=== PATIENT | female | born 1970 | race Caucasian/White ===

== ENCOUNTER 2016-04-01 09:28 | Emergency (ER) | END 2016-04-01 11:35 | disposition home or self-care (01) | CPT/HCPCS: 73502; 99283; 99284; A9270 ==

== ENCOUNTER 2016-04-10 12:00 | Outpatient (CLI) | payer MEDICARE, MEDICAID | END 2016-04-10 12:01 | disposition home or self-care (01) | DX: T84.59XD Infection and inflammatory reaction due to other internal joint prosthesis, subsequent encounter (principal) ==

== ENCOUNTER 2016-04-17 22:26 | Outpatient (CLI) | payer MEDICARE, MEDICAID | END 2016-04-17 22:27 | disposition home or self-care (01) | DX: T84.59XD Infection and inflammatory reaction due to other internal joint prosthesis, subsequent encounter (principal) ==

== ENCOUNTER 2016-04-24 12:00 | Outpatient (CLI) | payer MEDICARE, MEDICAID | END 2016-04-24 12:01 | disposition home or self-care (01) | DX: T84.59XD Infection and inflammatory reaction due to other internal joint prosthesis, subsequent encounter (principal) ==

== ENCOUNTER 2016-05-03 12:30 | Outpatient (CLI) | payer MEDICARE, MEDICAID | END 2016-05-03 12:31 | disposition home or self-care (01) | DX: T84.59XD Infection and inflammatory reaction due to other internal joint prosthesis, subsequent encounter (principal) ==

== ENCOUNTER 2016-05-10 12:30 | Outpatient (CLI) | payer MEDICARE, MEDICAID | END 2016-05-10 12:31 | disposition home or self-care (01) | DX: T84.59XD Infection and inflammatory reaction due to other internal joint prosthesis, subsequent encounter (principal) ==

== ENCOUNTER 2016-05-17 12:30 | Outpatient (CLI) | payer MEDICAID | END 2016-05-17 12:31 | disposition home or self-care (01) | DX: T84.59XD Infection and inflammatory reaction due to other internal joint prosthesis, subsequent encounter (principal) ==

== ENCOUNTER 2016-05-19 | Outpatient (CLI) | payer MEDICARE, MEDICAID | END 2016-05-19 08:32 | disposition critical access hospital (66) | DX: M25.552 Pain in left hip (principal) | CPT/HCPCS: A0425; A0429 ==

== ENCOUNTER 2016-05-19 08:51 | Emergency (ER) | payer MEDICARE, MEDICAID ==
[2016-05-19] MEDS ORDERED: HYDROmorphone 1 MG/ML SYRINGE IVP STA ×2 (09:22→10:29)
[2016-05-19] MEDS ORDERED: KETOROLAC 60 MG/2 ML VIAL IVP STA (09:22)
[2016-05-19] MEDS ORDERED: KETOROLAC 30 MG/ML VIAL ONE (09:32)
[2016-05-19] MEDS ORDERED: HYDROmorphone 1 MG/ML SYRINGE ONE ×2 (09:32→10:41)
[2016-05-19] MEDS ORDERED: diazePAM INJ 5 MG/ML SYRINGE IVP STA (10:29)
[2016-05-19] MEDS ORDERED: diazePAM INJ 5 MG/ML SYRINGE ONE (10:42)
== END 2016-05-19 11:08 | disposition home or self-care (01) ==
DX: M25.552 Pain in left hip (principal); J45.909 Unspecified asthma, uncomplicated; M19.90 Unspecified osteoarthritis, unspecified site; F17.200 Nicotine dependence, unspecified, uncomplicated
CPT/HCPCS: 73502; 96374; 96375; 96376; 99283; 99284; J1170

== ENCOUNTER 2016-05-22 14:39 | Outpatient (CLI) | payer MEDICARE, MEDICAID | END 2016-05-22 14:40 | disposition home or self-care (01) | DX: T84.59XD Infection and inflammatory reaction due to other internal joint prosthesis, subsequent encounter (principal) ==

== ENCOUNTER 2016-07-16 07:39 | Inpatient (IN) | payer MEDICARE, MEDICAID ==
[~2016-07-16 07:39] MED LIST: LACTATED RINGERS 1,000 ML IV ONE
[2016-07-16] MEDS ORDERED: fentaNYL 100 MCG/2 ML VIAL ONE (08:18)
[2016-07-16] MEDS ORDERED: ceFAZolin 2 GM/50 ML 50 ML IV ONE (08:37)
[2016-07-16] MEDS ORDERED: BACITRACIN 50,000 UNIT VIAL IM ONE ×2 (09:51→10:37)
[2016-07-16] MEDS ORDERED: LACTATED RINGERS 1,000 ML IV ONE ×3 (10:39→11:06)
[2016-07-16] MEDS ORDERED: PHENYLEPHRINE 50 MG/5 ML VIAL IV ONE ×2 (11:00)
[2016-07-16] MEDS ORDERED: MIDAZOLAM 2 MG/2 ML VIAL IVP ONE ×2 (11:00)
[2016-07-16] MEDS ORDERED: ePHEDrine 50 MG/ML AMP IVP ONE ×2 (11:00)
[2016-07-16] MEDS ORDERED: LIDOCAINE-MPF 2% 5 ML VIAL IM ONE ×2 (11:00)
[2016-07-16] MEDS ORDERED: PROPOFOL 200 MG/20 ML VIAL IVP ONE ×2 (11:00)
[2016-07-16] MEDS ORDERED: fentaNYL 250 MCG/5 ML VIAL IVP ONE ×2 (11:00)
[2016-07-16] MEDS ORDERED: ROCURONIUM 50 MG/5 ML VIAL IVP ONE ×2 (11:00)
[2016-07-16] MEDS ORDERED: BISACODYL 10 MG SUPP PR PRN (11:26)
[2016-07-16] MEDS ORDERED: ONDANSETRON 4 MG/2 ML VIAL IVP PRN ×2 (11:26→13:52)
[2016-07-16] MEDS ORDERED: PROCHLORPERAZINE 10 MG/2 ML VIAL IVP PRN (11:26)
[2016-07-16] MEDS ORDERED: PHENYLEPHRINE 20 MG in SODIUM CHLORIDE 0.9% 248 ML IV ONE (11:41)
[2016-07-16] MEDS ORDERED: ACETAMINOPHEN 1,000 MG/100 ML 100 ML IV ONE (11:59)
[2016-07-16] MEDS ORDERED: LIDOCAINE 1% 50 ML MDV ONE (12:03)
[2016-07-16] MEDS ORDERED: HYDROmorphone 1 MG/ML SYRINGE ONE (12:41)
[2016-07-16] MEDS: HYDROmorphone 1 MG/ML SYRINGE IVP PRN ×3 (12:43→19:34)
[2016-07-16] MEDS ORDERED: NALBUPHINE 20 MG/ML AMP IVP PRN (13:52)
[2016-07-16] MEDS ORDERED: PIPERACILLIN/TAZOBACTAM 3.375 GM in SODIUM CHLORIDE 0.9% MINIBAG 100 ML IV SCH (14:00)
[2016-07-16] MEDS ORDERED: VANCOMYCIN PER PHARMACY 1 GM in SODIUM CHLORIDE 0.9% 250 ML IV SCH (14:00)
[2016-07-16] MEDS: PHENYLEPHRINE 20 MG in SODIUM CHLORIDE 0.9% 248 ML IV SCH ×3 (14:08→18:01)
[2016-07-16] MEDS ORDERED: METOCLOPRAMIDE 10 MG/2 ML VIAL IVP PRN (14:10)
[2016-07-16] MEDS: oxyCODONE 5 MG TABLET PO PRN ×2 (14:24→14:54)
[2016-07-16] MEDS: SUFENTA/BUPIV 0.4 MCG/0.0625% 150 ML EP PRN (14:43)
[2016-07-16] MEDS: SODIUM CHLORIDE FLUSH 0.9% 10 ML SYRINGE IVP SCH (15:10)
[2016-07-16] MEDS: SODIUM CHLORIDE 0.45% 1,000 ML IV SCH ×2 (15:10→23:12)
[2016-07-16] MEDS: SODIUM CHLORIDE 0.9% 1,000 ML IV SCH ×2 (15:10→15:33)
[2016-07-16] MEDS: VANCOMYCIN INJ 1.5 GM in SODIUM CHLORIDE 0.9% 500 ML IV SCH (16:13)
[2016-07-16] MEDS ORDERED: ceFAZolin 2 GM/50 ML 50 ML IV SCH (18:00)
[2016-07-16] MEDS: ceFAZolin 2 GM/50 ML 50 ML IV SCH (18:47)
[2016-07-16] MEDS: LORazepam 0.5 MG TABLET PO PRN (19:33)
[2016-07-16] MEDS: ALBUTEROL NEB 2.5 MG/3 ML INH PRN (20:40)
[2016-07-16] MEDS: IPRATROPIUM 0.2 MG/ML NEB INH PRN (20:40)
[2016-07-16] MEDS: PIPERACILLIN/TAZOBACTAM 3.375 GM in SODIUM CHLORIDE 0.9% MINIBAG 100 ML IV SCH (20:55)
[2016-07-16] MEDS: QUEtiapine 100 MG TABLET PO SCH (20:56)
[2016-07-16] MEDS: traZODone 50 MG TABLET PO SCH (20:58)
[2016-07-16] MEDS: PHENYLEPHRINE 40 MG in SODIUM CHLORIDE 0.9% 496 ML IV SCH (21:04)
[2016-07-16] MEDS: SODIUM CHLORIDE FLUSH 0.9% 10 ML SYRINGE IVP PRN (21:07)
[2016-07-17] MEDS: SODIUM CHLORIDE FLUSH 0.9% 10 ML SYRINGE IVP SCH ×3 (00:01→07:45)
[2016-07-17] MEDS: SUFENTA/BUPIV 0.4 MCG/0.0625% 150 ML EP PRN ×2 (01:03→15:23)
[2016-07-17] MEDS: SODIUM CHLORIDE FLUSH 0.9% 10 ML SYRINGE IVP PRN ×2 (01:03→02:05)
[2016-07-17] MEDS: PHENYLEPHRINE 40 MG in SODIUM CHLORIDE 0.9% 496 ML IV SCH ×3 (02:35→16:25)
[2016-07-17] MEDS: PIPERACILLIN/TAZOBACTAM 3.375 GM in SODIUM CHLORIDE 0.9% MINIBAG 100 ML IV SCH ×4 (02:49→20:42)
[2016-07-17] MEDS: ceFAZolin 2 GM/50 ML 50 ML IV SCH ×2 (02:54→12:49)
[2016-07-17] MEDS: VANCOMYCIN INJ 1.5 GM in SODIUM CHLORIDE 0.9% 500 ML IV SCH (03:56)
[2016-07-17] MEDS ORDERED: MAGNESIUM SULFATE 2 GRAM 50 ML IV ONE (06:29)
[2016-07-17] MEDS: PANTOPRAZOLE 40 MG VIAL IVP SCH (07:45)
[2016-07-17] MEDS: HYDROmorphone 1 MG/ML SYRINGE IVP PRN ×9 (08:24→23:46)
[2016-07-17] MEDS: lamoTRIgine 100 MG TABLET PO SCH (08:24)
[2016-07-17] MEDS: ENOXAPARIN 30 MG/0.3 ML SYRINGE SUBQ SCH (08:26)
[2016-07-17] MEDS: DOCUSATE SODIUM 100 MG CAPSULE PO PRN (09:22)
[2016-07-17] MEDS: SODIUM CHLORIDE 0.9% 1,000 ML IV SCH ×2 (09:52→20:03)
[2016-07-17] MEDS: oxyCODONE 5 MG TABLET PO PRN ×2 (10:07→19:12)
[2016-07-17] MEDS: ACETAMINOPHEN 325 MG TABLET PO PRN (14:30)
[2016-07-17] MEDS: NICOTINE 21 MG PATCH TOP SCH (16:31)
[2016-07-17] MEDS ORDERED: MIN OIL/DIMETHICON/COCONUT OIL 92 GM TUBE TOP ONE (18:47)
[2016-07-17] MEDS: IPRATROPIUM 0.2 MG/ML NEB INH PRN (19:20)
[2016-07-17] MEDS: ALBUTEROL NEB 2.5 MG/3 ML INH PRN (19:20)
[2016-07-17] MEDS: diphenhydrAMINE INJ 50 MG/ML VIAL IVP PRN (20:14)
[2016-07-17] MEDS: traZODone 50 MG TABLET PO SCH (22:08)
[2016-07-17] MEDS: QUEtiapine 100 MG TABLET PO SCH (22:08)
[2016-07-17] MEDS: LORazepam 0.5 MG TABLET PO PRN (22:29)
[2016-07-18] MEDS: HYDROmorphone 1 MG/ML SYRINGE IVP PRN ×11 (03:47→22:29)
[2016-07-18] MEDS: PIPERACILLIN/TAZOBACTAM 3.375 GM in SODIUM CHLORIDE 0.9% MINIBAG 100 ML IV SCH ×4 (03:47→21:10)
[2016-07-18] MEDS: VANCOMYCIN INJ 1 GM in SODIUM CHLORIDE 0.9% 250 ML IV SCH ×2 (04:19→17:30)
[2016-07-18] MEDS: SODIUM CHLORIDE FLUSH 0.9% 10 ML SYRINGE IVP SCH ×4 (04:20→16:47)
[2016-07-18] MEDS: SODIUM CHLORIDE 0.9% 1,000 ML IV SCH ×2 (04:20→09:55)
[2016-07-18] MEDS: SUFENTA/BUPIV 0.4 MCG/0.0625% 150 ML EP PRN (04:37)
[2016-07-18] MEDS: PANTOPRAZOLE 40 MG VIAL IVP SCH (05:38)
[2016-07-18] MEDS: lamoTRIgine 100 MG TABLET PO SCH (08:34)
[2016-07-18] MEDS: ACETAMINOPHEN 325 MG TABLET PO PRN (08:35)
[2016-07-18] MEDS: NICOTINE 21 MG PATCH TOP SCH (08:49)
[2016-07-18] MEDS: ENOXAPARIN 30 MG/0.3 ML SYRINGE SUBQ SCH (09:00)
[2016-07-18] MEDS ORDERED: diazePAM 5 MG TABLET PO STA (09:00)
[2016-07-18] MEDS: oxyCODONE 5 MG TABLET PO PRN ×3 (09:17→19:51)
[2016-07-18] MEDS: PHENYLEPHRINE 40 MG in SODIUM CHLORIDE 0.9% 496 ML IV SCH ×4 (10:40→19:24)
[2016-07-18] MEDS: LORazepam 0.5 MG TABLET PO PRN ×2 (16:01→20:58)
[2016-07-18] MEDS: diphenhydrAMINE INJ 50 MG/ML VIAL IVP PRN (16:01)
[2016-07-18] MEDS: QUEtiapine 100 MG TABLET PO SCH (20:58)
[2016-07-18] MEDS: traZODone 50 MG TABLET PO SCH (20:59)
[2016-07-19] MEDS: oxyCODONE 5 MG TABLET PO PRN ×5 (00:14→21:01)
[2016-07-19] MEDS: TEMAZEPAM 15 MG CAPSULE PO PRN ×2 (00:15→23:30)
[2016-07-19] MEDS: SODIUM CHLORIDE 0.9% 1,000 ML IV SCH ×2 (02:28→15:19)
[2016-07-19] MEDS: PIPERACILLIN/TAZOBACTAM 3.375 GM in SODIUM CHLORIDE 0.9% MINIBAG 100 ML IV SCH ×4 (02:43→21:00)
[2016-07-19] MEDS: VANCOMYCIN INJ 1 GM in SODIUM CHLORIDE 0.9% 250 ML IV SCH (04:03)
[2016-07-19] MEDS: PANTOPRAZOLE 40 MG VIAL IVP SCH (06:17)
[2016-07-19] MEDS: HYDROmorphone 1 MG/ML SYRINGE IVP PRN ×9 (07:16→23:31)
[2016-07-19] MEDS: PHENYLEPHRINE 40 MG in SODIUM CHLORIDE 0.9% 496 ML IV SCH ×3 (07:35→22:29)
[2016-07-19] MEDS: SODIUM CHLORIDE FLUSH 0.9% 10 ML SYRINGE IVP SCH ×3 (07:40→23:30)
[2016-07-19] MEDS: ACETAMINOPHEN 325 MG TABLET PO PRN ×2 (07:55→14:11)
[2016-07-19] MEDS: DOCUSATE SODIUM 100 MG CAPSULE PO PRN ×2 (07:56→17:40)
[2016-07-19] MEDS: NICOTINE 21 MG PATCH TOP SCH (07:57)
[2016-07-19] MEDS: lamoTRIgine 100 MG TABLET PO SCH (07:57)
[2016-07-19] MEDS: SENNA 8.6 MG TABLET PO SCH (08:57)
[2016-07-19] MEDS: POLYETHYLENE GLYCOL 3350 17 GM PACKET PO SCH (09:04)
[2016-07-19] MEDS: SODIUM CHLORIDE FLUSH 0.9% 10 ML SYRINGE IVP PRN ×5 (09:06→17:41)
[2016-07-19] MEDS: diphenhydrAMINE INJ 50 MG/ML VIAL IVP PRN ×2 (10:01→23:30)
[2016-07-19] MEDS: MAGNESIUM OXIDE 400 MG TABLET PO SCH ×2 (11:28→16:52)
[2016-07-19] MEDS: LORazepam 0.5 MG TABLET PO PRN (14:11)
[2016-07-19] MEDS ORDERED: SILVER SULFADIAZINE CREAM 25 GM TUBE TOP SCH (16:00)
[2016-07-19] MEDS: SILVER SULFADIAZINE CREAM 400 GM JAR TOP SCH ×2 (16:25→22:31)
[2016-07-19] MEDS: SACCHAROMYCES BOULARDII 250 MG CAPSULE PO SCH (16:52)
[2016-07-19] MEDS: QUEtiapine 100 MG TABLET PO SCH (21:01)
[2016-07-19] MEDS: traZODone 50 MG TABLET PO SCH (21:02)
[2016-07-19] MEDS ORDERED: MIN OIL/DIMETHICON/COCONUT OIL 92 GM TUBE TOP ONE (21:50)
[2016-07-20] MEDS: HYDROmorphone 1 MG/ML SYRINGE IVP PRN ×10 (02:00→23:09)
[2016-07-20] MEDS: SODIUM CHLORIDE 0.9% 1,000 ML IV SCH ×3 (02:21→16:38)
[2016-07-20] MEDS: PIPERACILLIN/TAZOBACTAM 3.375 GM in SODIUM CHLORIDE 0.9% MINIBAG 100 ML IV SCH ×4 (03:30→22:26)
[2016-07-20] MEDS: SODIUM CHLORIDE FLUSH 0.9% 10 ML SYRINGE IVP SCH ×5 (06:53→23:09)
[2016-07-20] MEDS: PANTOPRAZOLE 40 MG VIAL IVP SCH (06:53)
[2016-07-20] MEDS: SILVER SULFADIAZINE CREAM 400 GM JAR TOP SCH (07:44)
[2016-07-20] MEDS: oxyCODONE 5 MG TABLET PO PRN ×4 (08:02→21:39)
[2016-07-20] MEDS: lamoTRIgine 100 MG TABLET PO SCH (08:03)
[2016-07-20] MEDS: SACCHAROMYCES BOULARDII 250 MG CAPSULE PO SCH ×2 (08:04→19:18)
[2016-07-20] MEDS: NICOTINE 21 MG PATCH TOP SCH (08:04)
[2016-07-20] MEDS: LORazepam 0.5 MG TABLET PO PRN ×2 (08:18→17:52)
[2016-07-20] MEDS: ASCORBIC ACID CHEW 500 MG TABLET PO SCH (09:15)
[2016-07-20] MEDS: CHOLECALCIFEROL 1,000 UNIT TABLET PO SCH (09:15)
[2016-07-20] MEDS ORDERED: diazePAM 5 MG TABLET PO ONE (09:30)
[2016-07-20] MEDS: SENNA 8.6 MG TABLET PO SCH (10:42)
[2016-07-20] MEDS: POLYETHYLENE GLYCOL 3350 17 GM PACKET PO SCH (10:42)
[2016-07-20] MEDS ORDERED: diazePAM 5 MG TABLET PO SCH (11:00)
[2016-07-20] MEDS ORDERED: VANCOMYCIN INJ 1 GM in SODIUM CHLORIDE 0.9% 250 ML IV SCH (12:00)
[2016-07-20] MEDS: VANCOMYCIN INJ 1 GM, VANCOMYCIN INJ 500 MG in SODIUM CHLORIDE 0.9% 500 ML IV SCH (12:40)
[2016-07-20] MEDS: PHENYLEPHRINE 40 MG in SODIUM CHLORIDE 0.9% 496 ML IV SCH (19:54)
[2016-07-20] MEDS: diphenhydrAMINE INJ 50 MG/ML VIAL IVP PRN (21:38)
[2016-07-20] MEDS: traZODone 50 MG TABLET PO SCH (22:21)
[2016-07-20] MEDS: QUEtiapine 100 MG TABLET PO SCH (22:22)
[2016-07-20] MEDS: TEMAZEPAM 15 MG CAPSULE PO PRN (22:26)
[2016-07-21] MEDS: LORazepam 0.5 MG TABLET PO PRN ×2 (00:06→15:21)
[2016-07-21] MEDS: oxyCODONE 5 MG TABLET PO PRN ×4 (02:04→21:07)
[2016-07-21] MEDS: HYDROmorphone 1 MG/ML SYRINGE IVP PRN ×9 (02:05→22:01)
[2016-07-21] MEDS: SODIUM CHLORIDE 0.9% 1,000 ML IV SCH ×2 (02:44→22:02)
[2016-07-21] MEDS: SILVER SULFADIAZINE CREAM 400 GM JAR TOP SCH ×3 (04:00→21:01)
[2016-07-21] MEDS: PIPERACILLIN/TAZOBACTAM 3.375 GM in SODIUM CHLORIDE 0.9% MINIBAG 100 ML IV SCH ×4 (04:03→21:00)
[2016-07-21] MEDS: SODIUM CHLORIDE FLUSH 0.9% 10 ML SYRINGE IVP SCH ×4 (06:14→18:16)
[2016-07-21] MEDS: PANTOPRAZOLE 40 MG VIAL IVP SCH (07:16)
[2016-07-21] MEDS: CHOLECALCIFEROL 1,000 UNIT TABLET PO SCH (09:06)
[2016-07-21] MEDS: NICOTINE 21 MG PATCH TOP SCH (09:06)
[2016-07-21] MEDS: lamoTRIgine 100 MG TABLET PO SCH (09:07)
[2016-07-21] MEDS: ASCORBIC ACID CHEW 500 MG TABLET PO SCH (09:07)
[2016-07-21] MEDS: SACCHAROMYCES BOULARDII 250 MG CAPSULE PO SCH ×2 (09:07→16:51)
[2016-07-21] MEDS: SODIUM CHLORIDE FLUSH 0.9% 10 ML SYRINGE IVP PRN (09:18)
[2016-07-21] MEDS: POLYETHYLENE GLYCOL 3350 17 GM PACKET PO SCH (09:55)
[2016-07-21] MEDS: VANCOMYCIN INJ 1 GM, VANCOMYCIN INJ 500 MG in SODIUM CHLORIDE 0.9% 500 ML IV SCH (11:35)
[2016-07-21] MEDS: SENNA 8.6 MG TABLET PO SCH (14:20)
[2016-07-21] MEDS ORDERED: MIN OIL/DIMETHICON/COCONUT OIL 92 GM TUBE TOP ONE (20:31)
[2016-07-21] MEDS: QUEtiapine 100 MG TABLET PO SCH (21:00)
[2016-07-21] MEDS: traZODone 50 MG TABLET PO SCH (21:00)
[2016-07-21] MEDS: diphenhydrAMINE INJ 50 MG/ML VIAL IVP PRN (21:02)
[2016-07-21] MEDS: TEMAZEPAM 15 MG CAPSULE PO PRN (22:01)
[2016-07-22] MEDS: PIPERACILLIN/TAZOBACTAM 3.375 GM in SODIUM CHLORIDE 0.9% MINIBAG 100 ML IV SCH ×4 (03:30→20:48)
[2016-07-22] MEDS: HYDROmorphone 1 MG/ML SYRINGE IVP PRN ×6 (04:24→19:28)
[2016-07-22] MEDS: PANTOPRAZOLE 40 MG VIAL IVP SCH (08:32)
[2016-07-22] MEDS: lamoTRIgine 100 MG TABLET PO SCH (08:33)
[2016-07-22] MEDS: ASCORBIC ACID CHEW 500 MG TABLET PO SCH (08:33)
[2016-07-22] MEDS: SACCHAROMYCES BOULARDII 250 MG CAPSULE PO SCH ×2 (08:34→15:45)
[2016-07-22] MEDS: CHOLECALCIFEROL 1,000 UNIT TABLET PO SCH (08:34)
[2016-07-22] MEDS: oxyCODONE 5 MG TABLET PO PRN ×3 (08:34→23:31)
[2016-07-22] MEDS: NICOTINE 21 MG PATCH TOP SCH (08:46)
[2016-07-22] MEDS: ENOXAPARIN 40 MG/0.4 ML SYRINGE SUBQ SCH (08:50)
[2016-07-22] MEDS: POLYETHYLENE GLYCOL 3350 17 GM PACKET PO SCH (08:51)
[2016-07-22] MEDS: SENNA 8.6 MG TABLET PO SCH (08:51)
[2016-07-22] MEDS: SILVER SULFADIAZINE CREAM 400 GM JAR TOP SCH ×2 (08:51→20:13)
[2016-07-22] MEDS: ACETAMINOPHEN 325 MG TABLET PO PRN ×2 (09:33→22:53)
[2016-07-22] MEDS ORDERED: diazePAM 5 MG TABLET PO STA (10:14)
[2016-07-22] MEDS: HYDROmorphone 2 MG TABLET PO PRN ×6 (11:19→22:43)
[2016-07-22] MEDS: MAGNESIUM OXIDE 400 MG TABLET PO SCH (11:19)
[2016-07-22] MEDS: diphenhydrAMINE INJ 50 MG/ML VIAL IVP PRN ×3 (11:38→21:05)
[2016-07-22] MEDS ORDERED: SODIUM CHLORIDE 0.9% 500 ML IV ONE (12:17)
[2016-07-22] MEDS ORDERED: VANCOMYCIN 500 MG VIAL ONE (12:17)
[2016-07-22] MEDS ORDERED: VANCOMYCIN 1 GM VIAL ONE (12:17)
[2016-07-22] MEDS: VANCOMYCIN INJ 1 GM, VANCOMYCIN INJ 500 MG in SODIUM CHLORIDE 0.9% 500 ML IV SCH (13:10)
[2016-07-22] MEDS: SODIUM CHLORIDE FLUSH 0.9% 10 ML SYRINGE IVP SCH ×2 (13:12→22:45)
[2016-07-22] MEDS: LORazepam 0.5 MG TABLET PO PRN ×2 (15:44→21:05)
[2016-07-22] MEDS ORDERED: MIN OIL/DIMETHICON/COCONUT OIL 92 GM TUBE TOP ONE (16:25)
[2016-07-22] MEDS: TEMAZEPAM 15 MG CAPSULE PO PRN (21:17)
[2016-07-22] MEDS: traZODone 50 MG TABLET PO SCH (22:44)
[2016-07-22] MEDS: QUEtiapine 100 MG TABLET PO SCH (22:45)
[2016-07-23] MEDS: HYDROmorphone 2 MG TABLET PO PRN ×5 (00:39→15:41)
[2016-07-23] MEDS: HYDROmorphone 1 MG/ML SYRINGE IVP PRN ×3 (00:59→11:05)
[2016-07-23] MEDS: PIPERACILLIN/TAZOBACTAM 3.375 GM in SODIUM CHLORIDE 0.9% MINIBAG 100 ML IV SCH ×3 (02:55→15:20)
[2016-07-23] MEDS: SODIUM CHLORIDE FLUSH 0.9% 10 ML SYRINGE IVP SCH ×2 (05:29→14:21)
[2016-07-23] MEDS: PANTOPRAZOLE 40 MG VIAL IVP SCH (05:35)
[2016-07-23] MEDS: SACCHAROMYCES BOULARDII 250 MG CAPSULE PO SCH (07:46)
[2016-07-23] MEDS: MAGNESIUM OXIDE 400 MG TABLET PO SCH (07:46)
[2016-07-23] MEDS: SODIUM CHLORIDE FLUSH 0.9% 10 ML SYRINGE IVP PRN (08:31)
[2016-07-23] MEDS: ENOXAPARIN 40 MG/0.4 ML SYRINGE SUBQ SCH (09:15)
[2016-07-23] MEDS: oxyCODONE 5 MG TABLET PO PRN ×2 (09:15→14:19)
[2016-07-23] MEDS: NICOTINE 21 MG PATCH TOP SCH (09:15)
[2016-07-23] MEDS: ASCORBIC ACID CHEW 500 MG TABLET PO SCH (09:16)
[2016-07-23] MEDS: lamoTRIgine 100 MG TABLET PO SCH (09:16)
[2016-07-23] MEDS: LORazepam 0.5 MG TABLET PO PRN (09:16)
[2016-07-23] MEDS: CHOLECALCIFEROL 1,000 UNIT TABLET PO SCH (09:16)
[2016-07-23] MEDS: POLYETHYLENE GLYCOL 3350 17 GM PACKET PO SCH (09:17)
[2016-07-23] MEDS: SILVER SULFADIAZINE CREAM 400 GM JAR TOP SCH (09:17)
[2016-07-23] MEDS: SENNA 8.6 MG TABLET PO SCH (09:17)
[2016-07-23] MEDS: VANCOMYCIN INJ 1 GM, VANCOMYCIN INJ 500 MG in SODIUM CHLORIDE 0.9% 500 ML IV SCH (12:12)
[2016-07-23] MEDS: ALBUTEROL NEB 2.5 MG/3 ML INH PRN (13:00)
== END 2016-07-23 15:40 | disposition home health service (06) | DRG 463 ==
PROC: 0QP704Z Removal of Internal Fixation Device from Left Upper Femur, Open Approach (ICD-10-PCS; 2016-07-16)
PROC: 4A133BC Monitoring of Arterial Pressure, Coronary, Percutaneous Approach (ICD-10-PCS; 2016-07-16)
PROC: 0SPS0JZ Removal of Synthetic Substitute from Left Hip Joint, Femoral Surface, Open Approach (ICD-10-PCS; principal; 2016-07-16 08:50)
PROC: 30233N1 Transfusion of Nonautologous Red Blood Cells into Peripheral Vein, Percutaneous Approach (ICD-10-PCS; 2016-07-17)
DX: T84.52XA Infection and inflammatory reaction due to internal left hip prosthesis, initial encounter (principal); T81.19XA Other postprocedural shock, initial encounter; D62 Acute posthemorrhagic anemia; M86.48 Chronic osteomyelitis with draining sinus, other site; B95.61 Methicillin susceptible Staphylococcus aureus infection as the cause of diseases classified elsewhere; Y83.1 Surgical operation with implant of artificial internal device as the cause of abnormal reaction of the patient, or of later complication, without mention of misadventure at the time of the procedure; F31.9 Bipolar disorder, unspecified; F41.9 Anxiety disorder, unspecified; I10 Essential (primary) hypertension; J45.40 Moderate persistent asthma, uncomplicated; G89.29 Other chronic pain; Z95.828 Presence of other vascular implants and grafts; Z87.891 Personal history of nicotine dependence; Z79.891 Long term (current) use of opiate analgesic; Z87.81 Personal history of (healed) traumatic fracture

== ENCOUNTER 2016-07-25 15:42 | Outpatient (CLI) | payer MEDICARE, MEDICAID | END 2016-07-25 15:43 | disposition critical access hospital (66) | DX: Z48.01 Encounter for change or removal of surgical wound dressing (principal) | CPT/HCPCS: A0425; A0429 ==

== ENCOUNTER 2016-07-25 16:06 | Emergency (ER) | payer MEDICARE, MEDICAID ==
[2016-07-25] MEDS ORDERED: oxyCODONE 5 MG TABLET PO STA (16:38)
[2016-07-25] MEDS ORDERED: oxyCODONE 5 MG TABLET ONE (16:48)
== END 2016-07-25 17:05 | disposition home or self-care (01) ==
DX: M96.89 Other intraoperative and postprocedural complications and disorders of the musculoskeletal system (principal); Z46.89 Encounter for fitting and adjustment of other specified devices; J45.909 Unspecified asthma, uncomplicated; F17.200 Nicotine dependence, unspecified, uncomplicated
CPT/HCPCS: 99283; A9270

== ENCOUNTER 2016-07-26 08:17 | Outpatient (CLI) | payer MEDICARE, MEDICAID | END 2016-07-26 08:18 | disposition critical access hospital (66) | DX: R11.2 Nausea with vomiting, unspecified (principal) | CPT/HCPCS: A0425; A0427 ==

== ENCOUNTER 2016-07-26 08:35 | Emergency (ER) | payer MEDICARE, MEDICAID ==
[2016-07-26] MEDS ORDERED: ONDANSETRON 4 MG/2 ML VIAL IVP STA (09:14)
[2016-07-26] MEDS ORDERED: HYDROmorphone 1 MG/ML SYRINGE IVP STA ×3 (09:14→11:41)
[2016-07-26] MEDS ORDERED: LORazepam 2 MG/ML SYRINGE IVP STA (09:15)
[2016-07-26] MEDS ORDERED: HYDROmorphone 1 MG/ML SYRINGE ONE ×3 (09:35→12:00)
[2016-07-26] MEDS ORDERED: LORazepam 2 MG/ML SYRINGE ONE (09:36)
[2016-07-26] MEDS ORDERED: ONDANSETRON 4 MG/2 ML VIAL ONE (09:36)
[2016-07-26] MEDS ORDERED: SODIUM CHLORIDE 0.9% 1,000 ML IV ONE (10:29)
[2016-07-26] MEDS ORDERED: ALTEPLASE 2 MG VIAL IC ONE (10:31)
[2016-07-26] MEDS ORDERED: oxyCODONE 5 MG TABLET PO STA (11:41)
[2016-07-26] MEDS ORDERED: oxyCODONE 5 MG TABLET ONE (12:00)
== END 2016-07-26 12:21 | disposition home or self-care (01) ==
DX: R11.2 Nausea with vomiting, unspecified (principal); T40.2X5A Adverse effect of other opioids, initial encounter; G89.18 Other acute postprocedural pain; Z98.890 Other specified postprocedural states; Z87.891 Personal history of nicotine dependence
CPT/HCPCS: 36415; 80053; 83690; 83735; 96374; 96375; 96376; 99284; A9270; J1170; J2060; J2997

== ENCOUNTER 2016-08-05 08:00 | Outpatient (CLI) | payer MEDICARE, MEDICAID | END 2016-08-05 23:59 | disposition home or self-care (01) | LOC: LAB.R 08:00 | PROVIDERS: ATTEND Orthopaedic Surgery | DX: Z53.9 Procedure and treatment not carried out, unspecified reason (principal) ==

== ENCOUNTER 2016-08-08 08:00 | Outpatient (CLI) | payer MEDICARE, MEDICAID ==
[2016-08-08 16:50] LABS: BASOPHILS # (AUTO) 0.1 10^3/uL (0.0-0.1); BASOPHILS % (AUTO) 0.8 %; EOSINOPHILS # (AUTO) 1.2 10^3/uL (0.0-0.7); EOSINOPHILS % (AUTO) 9.2 %; HCT - HEMATOCRIT 40.8 % (37.0-47.0); HGB - HEMOGLOBIN 13.2 g/dL (12.0-16.0); LYMPHOCYTES # (AUTO) 2.5 10^3/uL (1.5-3.5); LYMPHOCYTES % (AUTO) 19.4 %; MEAN CORPUSCULAR HEMOGLOBIN 28.2 pg (27.0-31.0); MEAN CORPUSCULAR HGB CONC 32.3 g/dL (32.0-36.0); MEAN CORPUSCULAR VOLUME 87.1 fL (81.0-99.0); MEAN PLATELET VOLUME 7.7 fL (7.9-10.8); MONOCYTES # (AUTO) 0.7 10^3/uL (0.0-1.0); MONOCYTES % (AUTO) 5.2 %; NEUTROPHILS # (AUTO) 8.3 10^3/uL (1.5-6.6); NEUTROPHILS % (AUTO) 65.4 %; NUCLEATED RED BLOOD CELLS AUTO 0.1 /100WBC; RED BLOOD COUNT 4.68 10^6/uL (4.20-5.40); RED CELL DISTRIBUTION WIDTH 18.6 % (12.0-15.0); UNCORRECTED WHITE BLOOD COUNT 12.7 x10^3/uL; WHITE BLOOD COUNT 12.7 x10^3/uL (4.8-10.8)
[2016-08-08 17:07] LABS: BILIRUBIN,TOTAL 0.3 mg/dL (0.2-1.0); BUN - BLOOD UREA NITROGEN 17 mg/dL (6-20); CALCIUM 9.9 mg/dL (8.5-10.3); CARBON DIOXIDE - CO2 27 mmol/L (21-32); CHLORIDE 103 mmol/L (101-111); GFR - MDRD 59 (>89); GLUCOSE 96 mg/dL (70-100); POTASSIUM 4.2 mmol/L (3.5-5.0); SODIUM 137 mmol/L (135-145); TOTAL PROTEIN 7.7 g/dL (6.7-8.2)
== END 2016-08-08 08:01 | disposition home or self-care (01) ==
LOC: LAB.R 08:00
DX: T84.59XD Infection and inflammatory reaction due to other internal joint prosthesis, subsequent encounter (principal)
CPT/HCPCS: 80053; 85025; 85651

== ENCOUNTER 2016-08-17 12:54 | Outpatient (CLI) | payer MEDICARE, MEDICAID | END 2016-08-17 12:55 | disposition critical access hospital (66) | LOC: EMS 12:54 | PROVIDERS: ATTEND Surgery | DX: M25.552 Pain in left hip (principal); Z91.81 History of falling | CPT/HCPCS: A0425; A0429 ==

== ENCOUNTER 2016-08-17 13:25 | Emergency (ER) | payer MEDICARE, MEDICAID ==
--- NOTE | 2016-08-17 13:58 | ED Physician Documentation ---
History of Present Illness - Stated complaint Stated Complaint: L HIP PX - Chief complaint Chief Complaint: Ext Problem - History obtained from History obtained from: Patient, EMS - History of Present Illness Timing: Yesterday Pain level max: 10 Pain level now: 8 Quality: spasm Improved by: rest, ice Worsened by: movement - Additonal information Additional information: fell yesterday with her walker. States her L leg internally rotated. States she has spasms today. worse with movement. States out of her hydrocodone. 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 HEENT: Other Psych: Depression, Bipolar disorder Musculoskeletal: Osteoarthritis, Chronic back pain Derm: Psoriasis - Past Surgical History Past Surgical History: Yes General: Cholecystectomy, Other Ortho: Hip replacement, Other - Present Medications Home Medications: Ambulatory Orders Medication Instructions Recorded Confirmed Lamotrigine [Lamictal] 200 mg PO DAILY 06/19/16 07/26/16 Quetiapine Fumarate [Seroquel] 400 mg PO QPM 06/19/16 07/26/16 Trazodone HCl 400 mg PO QPM 06/19/16 07/26/16 Acetaminophen [Tylenol] 650 - 975 mg PO Q4HR PRN #0 tablet 07/23/16 07/26/16 Albuterol 2.5 mg INH Q4HR PRN #0 neb 07/23/16 07/26/16 HYDROmorphone [Dilaudid] 4 mg PO Q2H PRN #60 tablet 07/23/16 07/26/16 Ondansetron Odt [Zofran] 4 mg TL Q6H PRN #15 tablet 07/26/16 oxyCODONE [Roxicodone] 5 mg PO Q6H PRN #20 tablet 07/26/16 Hydrocodone/Acetaminophen 1 - 2 each PO Q6H PRN #6 tablet 08/17/16 [Hydrocodon-Acetaminophen 5-325] diazePAM [Valium] 5 mg PO TID PRN #7 tablet 08/17/16 - Allergies Allergies/Adverse Reactions: Allergies Allergy/AdvReac Type Severity Reaction Status Date / Time morphine Allergy Hallucinati Verified 08/17/16 13:34 ons - Social History Does the pt smoke?: Yes Smoking Status: Former smoker Does the pt drink ETOH?: No Does the pt have substance abuse?: No - Immunizations Immunizations are current?: Yes - POLST Patient has POLST: No PD ED PE NORMAL - Vitals Vital signs reviewed: Yes - General General: Alert and oriented X 3, No acute distress - HEENT HEENT: Atraumatic, Moist mucous membranes - Neck Neck: Supple, no meningeal sign - Derm Derm: Warm and dry - Extremities Extremities: Other (R LE wound vac in place. no overt evidence of trauma or infection.) - Neuro Neuro: Alert and oriented X 3 Results - Vitals Vitals: Vital Signs - 24 hr 08/17/16 13:31 Temperature 36.9 C Heart Rate 106 H Respiratory 16 Rate Blood Pressure 115/97 H O2 Saturation 97 Oxygen O2 Source [With Activity] Room air O2 Source [Without Activity] Room air O2 Source Room air PD MEDICAL DECISION MAKING - ED course Complexity details: reviewed old records, considered differential, d/w patient ED course: Patient is a 46-year-old female who presents to the emergency department after a fall at home last night. States increasing pain today especially with movement. Mainly spasm. States Valium has worked for her in the past. Sees her orthopedist in 2 days. Declines x-rays at this time. Will prescribe a small amount of medication for her and follow-up with her doctor. Patient counseled regarding signs and symptoms for which I believe and urgent re- evaluation would be necessary. Patient with good understanding of and agreement to plan and is comfortable going home at this time This document was made in part using voice recognition software. While efforts are made to proofread this document, sound alike and grammatical errors may occur. Departure - Departure Disposition: 01 Home, Self Care Clinical Impression: Muscle spasm Condition: Good Instructions: ED Spasm Muscle Follow-Up: Evelyn Medina MD [Provider Admit Priv/Credential] - 08/19/16 Prescriptions: Hydrocodone/Acetaminophen [Hydrocodon-Acetaminophen 5-325] 1 - 2 each PO Q6H PRN #6 tablet PRN Reason: pain diazePAM [Valium] 5 mg PO TID PRN #7 tablet PRN Reason: Spasms Comments: Follow up on Friday with Dr. Medina for further evaluation and care. Do not drink alcohol or drive while on narcotic pain medicine. Note that many narcotic pain relievers also contain tylenol/acetaminophen. Please ensure that your total dose of acetaminophen from all sources does not exceed 3 grams (3000mg) per day. You may constipated on this medication, take a stool softener such as "Colace" twice a day while you are on it. Also recommend a xera-rwq-fclkeyu laxative such as senna or MiraLAX any day that you do not have a bowel movement. If you received narcotic pain medication in the emergency department, do not drive or operate machinery for the next 24 hours.
[2016-08-17] MEDS ORDERED: HYDROcod/ACETAM 5/325 MG TABLET PO STA ×2 (14:05→14:08)
[2016-08-17] MEDS ORDERED: diazePAM 5 MG TABLET PO STA (14:05)
[2016-08-17] MEDS ORDERED: diazePAM 5 MG TABLET PO ONE (14:11)
[2016-08-17] MEDS ORDERED: HYDROcod/ACETAM 5/325 MG TABLET ONE (14:11)
[2016-08-17 15:30] VITALS: BP 127/81
== END 2016-08-17 15:54 | disposition home or self-care (01) ==
LOC: EDUNIT# → ED 13:25
DX: M62.838 Other muscle spasm (principal); J45.909 Unspecified asthma, uncomplicated; M19.90 Unspecified osteoarthritis, unspecified site; Z87.891 Personal history of nicotine dependence
CPT/HCPCS: 99283; A9270

== ENCOUNTER 2016-08-17 15:58 | Outpatient (CLI) | payer MEDICARE, MEDICAID | END 2016-08-17 15:59 | disposition home or self-care (01) | LOC: EMS 15:58 | PROVIDERS: ATTEND Surgery | DX: M25.552 Pain in left hip (principal) | CPT/HCPCS: A0425; A0428 ==

== ENCOUNTER 2016-08-19 17:00 | Outpatient (CLI) | payer MEDICARE, MEDICAID ==
[2016-08-19 18:03] LABS: BASOPHILS # (AUTO) 0.1 10^3/uL (0.0-0.1); BASOPHILS % (AUTO) 0.5 %; EOSINOPHILS # (AUTO) 0.3 10^3/uL (0.0-0.7); EOSINOPHILS % (AUTO) 1.8 %; HGB - HEMOGLOBIN 12.3 g/dL (12.0-16.0); LYMPHOCYTES # (AUTO) 3.2 10^3/uL (1.5-3.5); LYMPHOCYTES % (AUTO) 19.9 %; MEAN CORPUSCULAR HGB CONC 32.4 g/dL (32.0-36.0); MEAN CORPUSCULAR VOLUME 86.6 fL (81.0-99.0); MEAN PLATELET VOLUME 7.4 fL (7.9-10.8); MONOCYTES # (AUTO) 1.6 10^3/uL (0.0-1.0); MONOCYTES % (AUTO) 9.9 %; NEUTROPHILS % (AUTO) 67.9 %; NUCLEATED RED BLOOD CELLS AUTO 0.1 /100WBC; RED BLOOD COUNT 4.39 10^6/uL (4.20-5.40); RED CELL DISTRIBUTION WIDTH 18.1 % (12.0-15.0); UNCORRECTED WHITE BLOOD COUNT 16.1 x10^3/uL; WHITE BLOOD COUNT 16.1 x10^3/uL (4.8-10.8)
[2016-08-19 18:49] LABS: ALBUMIN/GLOBULIN RATIO 0.8 (1.0-2.2); BILIRUBIN,TOTAL 0.5 mg/dL (0.2-1.0); BUN - BLOOD UREA NITROGEN 14 mg/dL (6-20); CALCIUM 9.6 mg/dL (8.5-10.3); CARBON DIOXIDE - CO2 22 mmol/L (21-32); CHLORIDE 105 mmol/L (101-111); CREATININE 1.1 mg/dL (0.4-1.0); GFR - MDRD 53 (>89); GLUCOSE 116 mg/dL (70-100); POTASSIUM 3.3 mmol/L (3.5-5.0); SODIUM 137 mmol/L (135-145); TOTAL PROTEIN 8.1 g/dL (6.7-8.2)
== END 2016-08-19 17:01 | disposition home or self-care (01) ==
LOC: LAB.R 17:00
PROVIDERS: ATTEND Orthopaedic Surgery
DX: T84.59XD Infection and inflammatory reaction due to other internal joint prosthesis, subsequent encounter (principal)
CPT/HCPCS: 80053; 85025; 85651

== ENCOUNTER 2016-09-03 12:20 | Outpatient (CLI) | payer MEDICARE, MEDICAID ==
[2016-09-03 13:11] LABS: BASOPHILS # (AUTO) 0.1 10^3/uL (0.0-0.1); HGB - HEMOGLOBIN 11.3 g/dL (12.0-16.0); MONOCYTES # (AUTO) 0.7 10^3/uL (0.0-1.0); NEUTROPHILS # (AUTO) 8.8 10^3/uL (1.5-6.6); UNCORRECTED WHITE BLOOD COUNT 12.1 x10^3/uL; WHITE BLOOD COUNT 12.1 x10^3/uL (4.8-10.8)
[2016-09-03 13:17] LABS: BASOPHILS % (AUTO) 0.5 %; EOSINOPHILS # (AUTO) 0.2 10^3/uL (0.0-0.7); HCT - HEMATOCRIT 34.2 % (37.0-47.0); LYMPHOCYTES # (AUTO) 2.4 10^3/uL (1.5-3.5); LYMPHOCYTES % (AUTO) 19.6 %; MEAN CORPUSCULAR HEMOGLOBIN 28.4 pg (27.0-31.0); MEAN CORPUSCULAR HGB CONC 33.1 g/dL (32.0-36.0); MEAN CORPUSCULAR VOLUME 85.7 fL (81.0-99.0); MEAN PLATELET VOLUME 6.4 fL (7.9-10.8); MONOCYTES % (AUTO) 5.8 %; NEUTROPHILS % (AUTO) 72.1 %; RED BLOOD COUNT 3.99 10^6/uL (4.20-5.40); RED CELL DISTRIBUTION WIDTH 17.1 % (12.0-15.0)
[2016-09-03 13:47] LABS: ALBUMIN/GLOBULIN RATIO 0.6 (1.0-2.2); BILIRUBIN,TOTAL 0.2 mg/dL (0.2-1.0); CALCIUM 9.4 mg/dL (8.5-10.3); POTASSIUM 4.1 mmol/L (3.5-5.0); TOTAL PROTEIN 6.9 g/dL (6.7-8.2)
== END 2016-09-03 12:21 | disposition home or self-care (01) ==
LOC: LAB.R 12:20
PROVIDERS: ATTEND Orthopaedic Surgery
DX: T84.59XD Infection and inflammatory reaction due to other internal joint prosthesis, subsequent encounter (principal)
CPT/HCPCS: 80053; 85025; 85651

== ENCOUNTER 2016-09-21 13:51 | Outpatient (CLI) | payer MEDICARE, MEDICAID | END 2016-09-21 13:52 | disposition critical access hospital (66) | LOC: EMS 13:51 | PROVIDERS: ATTEND Surgery | DX: M25.511 Pain in right shoulder (principal); V00.811A Fall from moving wheelchair (powered), initial encounter; Y92.038 Other place in apartment as the place of occurrence of the external cause | CPT/HCPCS: A0425; A0429 ==

== ENCOUNTER 2016-09-21 14:19 | Emergency (ER) | payer MEDICAID ==
[2016-09-21 14:26] VITALS: BP 131/76
[2016-09-21] MEDS ORDERED: diazePAM INJ 5 MG/ML SYRINGE IM STA (14:49)
[2016-09-21] MEDS ORDERED: diazePAM INJ 5 MG/ML SYRINGE ONE (14:52)
--- NOTE | 2016-09-21 14:54 | ED Physician Documentation ---
History of Present Illness - Stated complaint Stated Complaint: GLF - Chief complaint Chief Complaint: General - History obtained from History obtained from: Patient, EMS - History of Present Illness Timing: Today Pain level max: 8 Pain level now: 6 Quality: aching, dull pain Improved by: rest Worsened by: movement - Additonal information Additional information: Patient is a 46-year-old female who fell out of her wheelchair today landed on the right shoulder. Complaining of right-sided neck and shoulder pain. Worse with movement. Better with rest. 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 HEENT: Other Psych: Depression, Bipolar disorder Musculoskeletal: Osteoarthritis, Chronic back pain Derm: Psoriasis - Past Surgical History Past Surgical History: Yes General: Cholecystectomy, Other Ortho: Hip replacement, Other - Present Medications Home Medications: Ambulatory Orders Medication Instructions Recorded Confirmed Lamotrigine [Lamictal] 200 mg PO DAILY 06/19/16 09/21/16 Quetiapine Fumarate [Seroquel] 400 mg PO QPM 06/19/16 09/21/16 Trazodone HCl 400 mg PO QPM 06/19/16 09/21/16 Albuterol 2.5 mg INH Q4HR PRN #0 neb 07/23/16 09/21/16 Hydrocodone/Acetaminophen 1 - 2 each PO Q6H PRN #6 tablet 08/17/16 09/21/16 [Hydrocodon-Acetaminophen 5-325] diazePAM [Valium] 5 - 10 mg PO TID PRN #14 tablet 09/21/16 - Allergies Allergies/Adverse Reactions: Allergies Allergy/AdvReac Type Severity Reaction Status Date / Time morphine Allergy Hallucinati Verified 08/17/16 13:34 ons - Social History Does the pt smoke?: Yes Smoking Status: Former smoker Does the pt drink ETOH?: No Does the pt have substance abuse?: No - Immunizations Immunizations are current?: Yes - POLST Patient has POLST: No PD ED PE NORMAL - Vitals Vital signs reviewed: Yes - General General: Alert and oriented X 3, No acute distress - HEENT HEENT: Atraumatic, Moist mucous membranes - Neck Neck: Supple, no meningeal sign, No bony TTP, Other (Paraspinal tenderness, right trapezial ridge down to the shoulder. There is no bony tenderness over the glenohumeral joint, clavicle or cervical spine. No scapular tenderness.) - Cardiac Cardiac: RRR - Respiratory Respiratory: No respiratory distress, Clear bilaterally - Abdomen Abdomen: Soft, Non tender - Back Back: No spinal TTP - Derm Derm: Warm and dry - Neuro Neuro: Alert and oriented X 3 - Psych Psych: Normal mood, Normal affect Results - Vitals Vitals: Vital Signs - 24 hr 09/21/16 14:23 Temperature 37.0 C Heart Rate 98 Respiratory 14 Rate Blood Pressure 131/76 H O2 Saturation 97 Oxygen O2 Source [With Activity] Room air O2 Source [Without Activity] Room air O2 Source Room air PD MEDICAL DECISION MAKING - ED course Complexity details: re-evaluated patient, considered differential, d/w patient ED course: Patient is a 46-year-old female who appears to have a shoulder contusion/ muscular strain of the neck. We will trial her on Valium for home. This has worked well for her pain in the past. She is on a pain contract and is receiving hydrocodone for her pain at home. States she does not need pain medications. No evidence of bony injury. Full range of motion of the shoulder without pain. Full range of motion of the neck with minimal pain. Patient counseled regarding signs and symptoms for which I believe and urgent re- evaluation would be necessary. Patient with good understanding of and agreement to plan and is comfortable going home at this time This document was made in part using voice recognition software. While efforts are made to proofread this document, sound alike and grammatical errors may occur. Departure - Departure Disposition: Home, Self Care Clinical Impression: Muscle strain Condition: Good Instructions: ED Sprain Strain Neck Follow-Up: your,doctor in 1 week [Other] Prescriptions: diazePAM [Valium] 5 - 10 mg PO TID PRN #14 tablet PRN Reason: Spasms Comments: Return if you worsen. This should improve over the next 24-48 hours. You will be sore tomorrow. You can use ice as well as heat at home
== END 2016-09-21 15:17 | disposition home or self-care (01) ==
LOC: EDUNIT# → ED 14:19
DX: S16.1XXA Strain of muscle, fascia and tendon at neck level, initial encounter (principal); W05.0XXA Fall from non-moving wheelchair, initial encounter; Y93.89 Activity, other specified; Z87.891 Personal history of nicotine dependence
CPT/HCPCS: 96372; 99283

== ENCOUNTER 2016-09-24 16:19 | Emergency (ER) | payer MEDICARE, MEDICAID ==
[2016-09-24 16:29] VITALS: BP 107/77
--- NOTE | 2016-09-24 16:59 | ED Physician Documentation ---
PD HPI UPPER EXT INJURY - Stated complaint Stated Complaint: RT COLLAR BONE PX - Chief complaint Chief Complaint: Ext Problem - History obtained from History obtained from: Patient - History of Present Illness Location: Right, Clavicle (medial end), Shoulder Type of injury: Fall (she says she fell backward with her wheelchair and landed back/right side. Struck back of shoulder and had some pain there, but is having more pain today at medial clavicle area. Did not have xrays yesterday. She says she is hurting more than baseline for her hip/back and so took over her usual amount of meds (which had been 30 hydrocodone every week). 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 HEENT: Other Psych: Depression, Bipolar disorder Musculoskeletal: Osteoarthritis, Chronic back pain Derm: Psoriasis - Past Surgical History Past Surgical History: Yes General: Cholecystectomy, Other Ortho: Hip replacement, Other - Present Medications Home Medications: Ambulatory Orders Medication Instructions Recorded Confirmed Lamotrigine [Lamictal] 200 mg PO DAILY 06/19/16 09/24/16 Quetiapine Fumarate [Seroquel] 400 mg PO QPM 06/19/16 09/24/16 Trazodone HCl 400 mg PO QPM 06/19/16 09/24/16 Albuterol 2.5 mg INH Q4HR PRN #0 neb 07/23/16 09/24/16 diazePAM [Valium] 5 - 10 mg PO TID PRN #14 tablet 09/21/16 09/24/16 Diazepam 5 mg PO TID PRN #15 tablet 09/24/16 oxyCODONE [Roxicodone] 5 mg PO Q4-6H PRN #15 tablet 09/24/16 - Allergies Allergies/Adverse Reactions: Allergies Allergy/AdvReac Type Severity Reaction Status Date / Time morphine Allergy Hallucinati Verified 09/24/16 16:28 ons - Social History Does the pt smoke?: Yes Smoking Status: Former smoker Does the pt drink ETOH?: No Does the pt have substance abuse?: No - Immunizations Immunizations are current?: Yes - POLST Patient has POLST: No Results - Vitals Vitals: Vital Signs - 24 hr 09/24/16 16:25 Temperature 36.5 C Heart Rate 97 Respiratory 18 Rate Blood Pressure 107/77 O2 Saturation 99 Oxygen O2 Source [With Activity] Room air O2 Source [Without Activity] Room air O2 Source Room air PD MEDICAL DECISION MAKING - ED course Complexity details: reviewed old records (prior visits and [facility] report. ), considered differential (She denies being on Pain Contract per se, but I encourage her to be seeing her Ortho/PCP about further med Rx and would just do this short Rx due to new fall/injury. No fractures on xray. . ), d/w patient Departure - Departure Disposition: Home, Self Care Clinical Impression: Clavicle pain Accidental fall Qualifiers: Encounter type: initial encounter Qualified Code(s): W19.XXXA - Unspecified fall, initial encounter Condition: Stable Record reviewed to determine appropriate education?: Yes Instructions: ED Chronic Pain Management, ED Sprain Shoulder Follow-Up: Chrissy Hoffmann ARNP [Primary Care Provider] - Evelyn Medina MD [Provider Admit Priv/Credential] - Prescriptions: Diazepam 5 mg PO TID PRN #15 tablet PRN Reason: Spasms oxyCODONE [Roxicodone] 5 mg PO Q4-6H PRN #15 tablet PRN Reason: Pain Comments: You should be getting regular ongoing pain medications from your regular providers. I wrote short term script for just this time, and will give further Diazepam for muscle relaxant. Follow up with regular providers regarding further meds. Discharge Date/Time: 09/24/16 18:06
[2016-09-24] MEDS ORDERED: oxyCOD/ACETAMIN 5 MG/325 MG TABLET PO STA (17:16)
[2016-09-24] MEDS ORDERED: oxyCOD/ACETAMIN 5 MG/325 MG TABLET PO ONE (17:20)
--- NOTE | 2016-09-24 17:58 | XRAY Preliminary Report ---
Exam: XR Clavicle RT IMPRESSION: 1. No fracture. 2. Normal alignment. Moderate right acromioclavicular joint arthritis. [facility] SITE ID: [id number]
--- NOTE | 2016-09-24 18:24 | XRAY Report ---
EXAM: RIGHT CLAVICLE RADIOGRAPHY EXAM DATE: 09/24/2016 05:39 PM. CLINICAL HISTORY: Fall with pain medial clavicle. COMPARISON: None. TECHNIQUE: 2 views. FINDINGS: Bones: Normal. No fracture or bone lesion. Joints: The acromioclavicular and sternoclavicular joints are in normal alignment. Moderate right acr omioclavicular joint arthritis with subchondral cyst. Soft Tissues: Normal. No soft tissue swelling. IMPRESSION: 1. No fracture. 2. Normal alignment. Moderate right acromioclavicular joint arthritis. [facility] Referring Provider Line: [phone] SITE ID: [id number]
== END 2016-09-24 18:06 | disposition home or self-care (01) ==
LOC: ED 16:19
DX: M25.511 Pain in right shoulder (principal); W05.0XXA Fall from non-moving wheelchair, initial encounter; M25.559 Pain in unspecified hip; M54.9 Dorsalgia, unspecified; G89.29 Other chronic pain; M19.90 Unspecified osteoarthritis, unspecified site; Z96.649 Presence of unspecified artificial hip joint; Z87.891 Personal history of nicotine dependence
CPT/HCPCS: 73000; 99283; A9270

== ENCOUNTER 2016-11-06 02:23 | Outpatient (CLI) | payer MEDICARE | END 2016-11-06 02:24 | disposition critical access hospital (66) | LOC: EMS 02:23 | PROVIDERS: ATTEND Surgery | DX: S89.90XA Unspecified injury of unspecified lower leg, initial encounter (principal) | CPT/HCPCS: A0425; A0429 ==

== ENCOUNTER 2016-11-06 02:47 | Emergency (ER) | payer MEDICAID, MEDICARE ==
--- NOTE | 2016-11-06 03:36 | ED Physician Documentation ---
PD HPI BACK PAIN - Stated complaint Stated Complaint: LT KNEE PAIN/HIP REPLACEMENT ISSUES - Chief complaint Chief Complaint: Ext Problem - History obtained from History obtained from: Patient - History of Present Illness Timing - onset: Chronic Timing - details: Gradual onset, Still present Location: Upper, Right Quality: Pain, Spasm, Similar to prior episodes Associated symptoms: No: Fever, Weakness Worsened by: Movement, Lifting Contributing factors: Lifting, Twisting Similar symptoms before: No diagnosis. No: Treatment Recently seen: Not recently seen - Additional information Additional information: Patient is a 46 year old female presenting to the emergency department for back pain and muscle spasm. Patient states that she has been dealing with this for a long time. every now and again the area will flare up. Patient states that she is supposed to get a massage tomorrow but she couldn't wait because she couldnt' sleep. Review of Systems Constitutional: denies: Fever, Chills Eyes: denies: Loss of vision, Decreased vision Ears: denies: Ear pain, Drainage/discharge Nose: denies: Rhinorrhea / runny nose, Congestion Throat: denies: Dental pain / toothache Respiratory: denies: Dyspnea, Cough GI: denies: Abdominal Pain, Nausea, Vomiting Skin: denies: Rash, Lesions Musculoskeletal: reports: Neck pain, Back pain Neurologic: denies: Generalized weakness, Focal weakness, Numbness PD PAST MEDICAL HISTORY - Past Medical History Cardiovascular: None Respiratory: Asthma Neuro: None Endocrine/Autoimmune: None GI: Chronic constipation 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 HEENT: Other Psych: Depression, Bipolar disorder Musculoskeletal: Osteoarthritis, Chronic back pain Derm: Psoriasis - Past Surgical History Past Surgical History: Yes General: Cholecystectomy, Other Ortho: Hip replacement, Other - Present Medications Home Medications: Ambulatory Orders Medication Instructions Recorded Confirmed Lamotrigine [Lamictal] 200 mg PO DAILY 06/19/16 09/24/16 Quetiapine Fumarate [Seroquel] 400 mg PO QPM 06/19/16 09/24/16 Trazodone HCl 400 mg PO QPM 06/19/16 09/24/16 Albuterol 2.5 mg INH Q4HR PRN #0 neb 07/23/16 09/24/16 diazePAM [Valium] 5 - 10 mg PO TID PRN #14 tablet 09/21/16 09/24/16 Diazepam 5 mg PO TID PRN #15 tablet 09/24/16 oxyCODONE [Roxicodone] 5 mg PO Q4-6H PRN #15 tablet 09/24/16 Cyclobenzaprine [Flexeril] 10 mg PO TID PRN #10 tablet 11/06/16 - Allergies Allergies/Adverse Reactions: Allergies Allergy/AdvReac Type Severity Reaction Status Date / Time morphine Allergy Hallucinati Verified 09/24/16 16:28 ons - Social History Does the pt smoke?: Yes Smoking Status: Former smoker Does the pt drink ETOH?: No Does the pt have substance abuse?: No - Immunizations Immunizations are current?: Yes - POLST Patient has POLST: No PD ED PE NORMAL - Vitals Vital signs reviewed: Yes - General General: Alert and oriented X 3, No acute distress - HEENT HEENT: Atraumatic, PERRL - Neck Neck: Supple, no meningeal sign - Cardiac Cardiac: RRR, No murmur - Respiratory Respiratory: No respiratory distress - Abdomen Abdomen: Soft, Non tender, Non distended - Derm Derm: Normal color, Warm and dry, No rash - Extremities Extremities: No deformity, Normal ROM s pain - Neuro Neuro: Alert and oriented X 3, No motor deficit, No sensory deficit, Normal speech - Psych Psych: Normal mood PD ED PE EXPANDED - Back Back: Soft tissue tenderness (tenderness and hypertonicty of right paraspinal muscles in upper thoracic region) Results - Vitals Vitals: Vital Signs - 24 hr 11/06/16 02:50 Temperature 36.8 C Heart Rate 90 Respiratory 24 Rate Blood Pressure 128/98 H O2 Saturation 98 Oxygen O2 Source [With Activity] Room air O2 Source [Without Activity] Room air O2 Source Room air PD MEDICAL DECISION MAKING - ED course Complexity details: reviewed old records, re-evaluated patient, considered differential, d/w patient ED course: Patient was seen and examined at bedside. A trigger point injection was performed and patient was treated with toradol and flexeril. Patient required no imaging at this time and patient was stable for discharge with outpatient follow up. Departure - Departure Disposition: 01 Home, Self Care Clinical Impression: Muscle spasm Condition: Good Instructions: ED Spasm Back No Trauma Follow-Up: Chrissy Hoffmann ARNP [Primary Care Provider] - Within 1 week Prescriptions: Cyclobenzaprine [Flexeril] 10 mg PO TID PRN #10 tablet PRN Reason: Spasms Comments: Your symptoms today are being caused by a muscle spasm. You should continue with ice/heat nsaids for the pain. You can take an occasional flexeril but you should not take it with any alcohol or other depressants. You should follow up with your massage therapist and your pmd. You may return to the emergency department for new, worsening or uncontrollable symptoms.
--- NOTE | 2016-11-06 03:46 | XRAY Report ---
EXAM: LEFT KNEE RADIOGRAPHY EXAM DATE: 11/06/2016 03:28 AM. CLINICAL HISTORY: Fall, knee pain, prior hip removal. COMPARISON: Radiograph hip 05/19/2016 TECHNIQUE: 6 views. FINDINGS: Bones: The bones are osteopenic. There is a comminuted supracondylar fracture of the left femur, with the fracture line also extending to the articular surface, best seen on the lateral view. In additio n, the lateral view demonstrates cortical irregularity of the metadiaphysis of the fibula, concerning for an additional fracture. Joints: Moderate left knee joint effusion likely representing hemarthrosis. Soft Tissues: Normal. No soft tissue swelling. IMPRESSION: 1. A comminuted supracondylar fracture of the left femur, with the fracture line also extending to th e articular surface, best seen on the lateral view. 2. In addition, the lateral view demonstrates cortical irregularity of the metadiaphysis of the fibul a, concerning for an additional fracture. 3. Moderate left knee joint effusion likely representing hemarthrosis. [facility] Referring Provider Line: [phone] SITE ID: [id number]
[2016-11-06] MEDS ORDERED: fentaNYL 100 MCG/2 ML VIAL IVP STA ×3 (04:06→06:42)
--- NOTE | 2016-11-06 04:06 | ED Physician Documentation ---
PD HPI LOWER EXT INJURY - Stated complaint Stated Complaint: LT KNEE PAIN/HIP REPLACEMENT ISSUES - Chief complaint Chief Complaint: Ext Problem - History obtained from History obtained from: Patient, EMS - History of Present Illness PD HPI LOW EXT INJURY LOCATION: Left, Knee Type of injury: Fall Where injury occurred: Street Timing - onset: Today Timing - details: Abrupt onset Improved by: Immobilization Associated symptoms: Swelling, Discolored Contributing factors: Prior ortho surgery, Prosthetic joint Similar symptoms before: Has not had sx before Recently seen: Not recently seen - Additional information Additional information: Patient is a 46 year old female with prior degenerative arthritis and bilateral hip replacements who is presenting to the emergency department for knee pain after falling in her wheelchair. Patient states that she was crossing a dirt field when she dropped her phone. she was reaching over to get her phone when she fell and landed on her knee. Patient states that she heard a snap at that time. Review of Systems Constitutional: denies: Fever, Chills Eyes: denies: Loss of vision, Photophobia Ears: denies: Ear pain, Drainage/discharge Nose: denies: Rhinorrhea / runny nose, Congestion Throat: denies: Dental pain / toothache, Sore throat Cardiac: denies: Chest pain / pressure Respiratory: denies: Cough GI: denies: Nausea, Vomiting Musculoskeletal: reports: Extremity pain, Joint pain Psychiatric: reports: Anxiety, Other (bipolar). 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 COPY: None : None HEENT: Other Psych: Depression, Bipolar disorder Musculoskeletal: Osteoarthritis, Chronic back pain Derm: Psoriasis - Past Surgical History Past Surgical History: Yes General: Cholecystectomy, Other Ortho: Hip replacement, Other - Present Medications Home Medications: Ambulatory Orders Medication Instructions Recorded Confirmed Lamotrigine [Lamictal] 200 mg PO DAILY 06/19/16 09/24/16 Quetiapine Fumarate [Seroquel] 400 mg PO QPM 06/19/16 09/24/16 Trazodone HCl 400 mg PO QPM 06/19/16 09/24/16 Albuterol 2.5 mg INH Q4HR PRN #0 neb 07/23/16 09/24/16 diazePAM [Valium] 5 - 10 mg PO TID PRN #14 tablet 09/21/16 09/24/16 Diazepam 5 mg PO TID PRN #15 tablet 09/24/16 oxyCODONE [Roxicodone] 5 mg PO Q4-6H PRN #15 tablet 09/24/16 Cyclobenzaprine [Flexeril] 10 mg PO TID PRN #10 tablet 11/06/16 - Allergies Allergies/Adverse Reactions: Allergies Allergy/AdvReac Type Severity Reaction Status Date / Time morphine Allergy Hallucinati Verified 09/24/16 16:28 ons - Social History Does the pt smoke?: Yes Smoking Status: Former smoker Does the pt drink ETOH?: No Does the pt have substance abuse?: No - Immunizations Immunizations are current?: Yes - POLST Patient has POLST: No PD ED PE NORMAL - Vitals Vital signs reviewed: Yes - HEENT HEENT: Atraumatic, PERRL - Neck Neck: Supple, no meningeal sign - Cardiac Cardiac: RRR - Respiratory Respiratory: No respiratory distress - Abdomen Abdomen: Soft, Non tender, Non distended - Derm Derm: Normal color, Warm and dry, No rash PD ED PE EXPANDED - General General: Alert, Disheveled, poorly kept, In Pain - Extremities Extremities: Left hip (gross deformity of left hit), Left knee (tenderness, swell ing and deformity of left knee) - Psych Psych: Tearful, Agitated Results - Vitals Vitals: Vital Signs - 24 hr 11/06/16 11/06/16 11/06/16 02:50 04:47 05:37 Temperature 36.8 C Heart Rate 90 79 90 Respiratory 24 16 16 Rate Blood Pressure 128/98 H 125/70 126/80 O2 Saturation 98 100 98 11/06/16 06:56 Temperature Heart Rate 84 Respiratory 14 Rate Blood Pressure 155/97 H O2 Saturation 97 Oxygen O2 Source [With Activity] Room air O2 Source [Without Activity] Room air O2 Source Room air - Labs Labs: Laboratory Tests 11/06/16 11/06/16 04:30 04:30 WBC 11.1 H RBC 4.13 L Hgb 12.0 Hct 36.5 L MCV 88.5 MCH 29.0 MCHC 32.8 RDW 16.0 H Plt Count 320 MPV 6.6 L Neut # 8.8 H Lymph # 1.3 L [place] # 0.7 Eos # 0.2 Baso # 0.1 Absolute Nucleated RBC 0.00 Nucleated RBCs 0.0 Sodium 136 Potassium 3.0 L Chloride 103 Carbon Dioxide 24 Anion Gap 9.0 BUN 21 H Creatinine 0.9 Estimated GFR (MDRD) 67 L Glucose 137 H Calcium 9.8 Total Bilirubin 0.4 AST 29 ALT 30 Alkaline Phosphatase 137 H Total Protein 9.3 H Albumin 4.1 Globulin 5.2 H Albumin/Globulin Ratio 0.8 L Lipase 37 - Rads (name of study) knee x-ray Radiology: Final report received (comminuted fracture of left knee) ct knee Radiology: Final report received (comminuted fracture of left knee) PD MEDICAL DECISION MAKING - ED course Complexity details: reviewed old records, reviewed results, re-evaluated patient , considered differential, d/w patient, d/w education sales consultant ED course: Patient was seen and examined at bedside. Patient was sent for imaging. when patient returned results were reviewed and consistent with comminuted fracture. IV access was gained and labs were drawn. Patient was treated with fentanyl 50mcg. Dr Landon, covering ortho was contacted and reviewed the films. he stated that the patient should be transferred out. Case was discussed with preethi canales who recommended cT and [facility] consult. Case was discussed with [facility] trauma surgeon who accepted the patient. arrangements were made for transfer of the patient. patient was treated with an additional 50mcg of fentanyl and 1mg of ativan. Departure - Departure Disposition: 02 Transfer Acute Care Hosp Clinical Impression: Closed comminuted supracondylar fracture of femur Condition: Stable Prescriptions: Cyclobenzaprine [Flexeril] 10 mg PO TID PRN #10 tablet PRN Reason: Spasms Comments: Your symptoms today are being caused by a muscle spasm. You should continue with ice/heat nsaids for the pain. You can take an occasional flexeril but you should not take it with any alcohol or other depressants. You should follow up with your massage therapist and your pmd. You may return to the emergency department for new, worsening or uncontrollable symptoms.
[2016-11-06] MEDS ORDERED: fentaNYL 100 MCG/2 ML VIAL ONE ×3 (04:17→06:52)
[2016-11-06] MEDS ORDERED: SODIUM CHLORIDE FLUSH 0.9% 10 ML SYRINGE IVP ONE ×2 (04:17→06:54)
[2016-11-06 04:40] LABS: BASOPHILS # (AUTO) 0.1 10^3/uL (0.0-0.1); BASOPHILS % (AUTO) 0.6 %; EOSINOPHILS # (AUTO) 0.2 10^3/uL (0.0-0.7); EOSINOPHILS % (AUTO) 1.8 %; HCT - HEMATOCRIT 36.5 % (37.0-47.0); LYMPHOCYTES # (AUTO) 1.3 10^3/uL (1.5-3.5); LYMPHOCYTES % (AUTO) 11.9 %; MEAN CORPUSCULAR HGB CONC 32.8 g/dL (32.0-36.0); MEAN CORPUSCULAR VOLUME 88.5 fL (81.0-99.0); MEAN PLATELET VOLUME 6.6 fL (7.9-10.8); MONOCYTES # (AUTO) 0.7 10^3/uL (0.0-1.0); MONOCYTES % (AUTO) 6.7 %; NEUTROPHILS # (AUTO) 8.8 10^3/uL (1.5-6.6); RED BLOOD COUNT 4.13 10^6/uL (4.20-5.40); UNCORRECTED WHITE BLOOD COUNT 11.1 x10^3/uL; WHITE BLOOD COUNT 11.1 x10^3/uL (4.8-10.8)
[2016-11-06 04:50] LABS: ALBUMIN/GLOBULIN RATIO 0.8 (1.0-2.2); BILIRUBIN,TOTAL 0.4 mg/dL (0.2-1.0); CALCIUM 9.8 mg/dL (8.5-10.3); CREATININE 0.9 mg/dL (0.4-1.0); TOTAL PROTEIN 9.3 g/dL (6.7-8.2)
--- NOTE | 2016-11-06 07:07 | CT Preliminary Report ---
Exam: CT Lower Extremity Left W/O IMPRESSION: 1. As already demonstrated on the comparison radiograph, there is a comminuted supracondylar fracture of the left femur with multiple fracture lines, with the distal fracture fragment (the condyles) ang ulated anteriorly. Approximately 28 degrees of angulation. There is a linear lucency extending to the joint (for example series 7 image 70), consistent with articular extension of the fracture. 2. A hyperdense effusion with a level within the left knee joint, consistent with hemarthrosis. 3. No other fractures are appreciated. [facility] SITE ID: [id number]
--- NOTE | 2016-11-06 07:10 | CT Report ---
EXAM: RIGHT/LEFT KNEE CT WITHOUT CONTRAST EXAM DATE: 11/06/2016 06:43 AM. CLINICAL HISTORY: Left femur fracture COMPARISON: Radiograph left knee 11/06/2016 TECHNIQUE: Thin-section axial images were acquired of the knee without contrast. Post-processing: Cor onal and sagittal reformats. Other: None. In accordance with CT protocol optimization, one or more of the following dose reduction techniques w ere utilized for this exam: automated exposure control, adjustment of mA and/or KV based on patient s ize, or use of iterative reconstructive technique. FINDINGS: Bones: As already demonstrated on the comparison radiograph, there is a comminuted supracondylar frac ture of the left femur with multiple fracture lines, with the distal fracture fragment (the condyles) angulated anteriorly. Approximately 28 degrees of angulation. There is a linear lucency extending to the joint (for example series 7 image 70), consistent with articular extension of the fracture. No other fractures are appreciated. Joints: There is a hyperdense effusion with a level within the left knee joint, consistent with hemar throsis. Musculature: Normal. No fatty atrophy. Other: No Bakers cyst. No soft tissue swelling. Multiple calcific densities within the soft tissues of the left lower extremity IMPRESSION: 1. As already demonstrated on the comparison radiograph, there is a comminuted supracondylar fracture of the left femur with multiple fracture lines, with the distal fracture fragment (the condyles) ang ulated anteriorly. Approximately 28 degrees of angulation. There is a linear lucency extending to the joint (for example series 7 image 70), consistent with articular extension of the fracture. 2. A hyperdense effusion with a level within the left knee joint, consistent with hemarthrosis. 3. No other fractures are appreciated. [facility] Referring Provider Line: [phone] SITE ID: [id number]
[2016-11-06] MEDS ORDERED: LORazepam 2 MG/ML SYRINGE IVP STA (07:21)
[2016-11-06] MEDS ORDERED: LORazepam 2 MG/ML SYRINGE ONE (07:34)
[2016-11-06 07:51] VITALS: BP 116/88
[2016-11-06] MEDS ORDERED: HYDROmorphone 1 MG/ML SYRINGE IVP STA (08:23)
[2016-11-06] MEDS ORDERED: HYDROmorphone 1 MG/ML SYRINGE ONE (08:31)
== END 2016-11-06 08:49 | disposition short-term general hospital (02) ==
LOC: EDUNIT# → SUPCPDRO 02:47 → ED 02:47
DX: S72.452A Displaced supracondylar fracture without intracondylar extension of lower end of left femur, initial encounter for closed fracture (principal); W05.0XXA Fall from non-moving wheelchair, initial encounter; Z96.643 Presence of artificial hip joint, bilateral; J45.909 Unspecified asthma, uncomplicated
CPT/HCPCS: 20552; 36415; 73564; 73700; 80053; 83690; 85025; 96374; 96375; 96376; 99284; J1170; J2060

== ENCOUNTER 2016-11-06 08:53 | Outpatient (CLI) | payer MEDICARE | END 2016-11-06 08:54 | disposition short-term general hospital (02) | LOC: EMS 08:53 | PROVIDERS: ATTEND Surgery | DX: S72.92XA Unspecified fracture of left femur, initial encounter for closed fracture (principal) | CPT/HCPCS: A0425; A0428 ==

== ENCOUNTER 2016-11-16 18:20 | Outpatient (CLI) | payer MEDICARE | END 2016-11-16 18:21 | disposition critical access hospital (66) | LOC: EMS 18:20 | PROVIDERS: ATTEND Surgery | DX: M79.652 Pain in left thigh (principal) | CPT/HCPCS: A0425; A0428; A0429 ==

== ENCOUNTER 2016-11-16 18:39 | Emergency (ER) | payer MEDICARE ==
[2016-11-16] MEDS ORDERED: HYDROmorphone 1 MG/ML SYRINGE IM STA ×2 (19:42→20:39)
[2016-11-16] MEDS ORDERED: ONDANSETRON ODT 4 MG TABLET TL STA (19:43)
--- NOTE | 2016-11-16 19:43 | ED Physician Documentation ---
PD HPI LOWER EXT INJURY - Stated complaint Stated Complaint: LEG PAIN - Chief complaint Chief Complaint: Ext Problem - History obtained from History obtained from: Patient - History of Present Illness PD HPI LOW EXT INJURY LOCATION: Left, Upper leg, Knee Type of injury: Other (she had recent injury to left leg with distall femur fracture. Seen at [facility] and treated with knee immobilizer only. Having worse pain and did not have further pain meds. Appt with PMD next week?.) Timing - duration: Days Timing - details: Abrupt onset, Still present Worsened by: Moving, Palpating Contributing factors: Anticoagulated, Prior ortho surgery Recently seen: Emergency Dept, Other (sent to [facility] for eval of fracture from ED here.) Review of Systems Constitutional: denies: Fever, Chills Cardiac: denies: Chest pain / pressure Respiratory: denies: Dyspnea, Cough GI: denies: Abdominal Pain, Nausea, Vomiting Neurologic: denies: Focal weakness, Numbness PD PAST MEDICAL HISTORY - Past Medical History Past Medical History: Yes Cardiovascular: None Respiratory: Asthma Neuro: None Endocrine/Autoimmune: None GI: Chronic constipation 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 : None HEENT: Other Psych: Depression, Bipolar disorder Musculoskeletal: Osteoarthritis, Chronic back pain Derm: Psoriasis - Past Surgical History Past Surgical History: Yes General: Cholecystectomy, Other Ortho: Hip replacement, Other - Present Medications Home Medications: Ambulatory Orders Medication Instructions Recorded Confirmed Lamotrigine [Lamictal] 200 mg PO DAILY 06/19/16 11/16/16 Quetiapine Fumarate [Seroquel] 400 mg PO QPM 06/19/16 09/24/16 Albuterol 2.5 mg INH Q4HR PRN #0 neb 07/23/16 11/16/16 diazePAM [Valium] 5 - 10 mg PO TID PRN #14 tablet 09/21/16 11/16/16 oxyCODONE [Roxicodone] 5 mg PO Q4-6H PRN #15 tablet 09/24/16 Enoxaparin [Lovenox] mg SUBQ Q24H 11/16/16 Oxycodone HCl/Acetaminophen 1 each PO Q4HR PRN #30 tablet 11/16/16 [Percocet 10-325 mg Tablet] diazePAM [Valium] 5 mg PO TID PRN #25 tablet 11/16/16 - Allergies Allergies/Adverse Reactions: Allergies Allergy/AdvReac Type Severity Reaction Status Date / Time morphine Allergy Hallucinati Verified 11/16/16 19:00 ons - Social History Does the pt smoke?: Yes Smoking Status: Former smoker Does the pt drink ETOH?: No Does the pt have substance abuse?: No - Immunizations Immunizations are current?: Yes - POLST Patient has POLST: No PD ED PE NORMAL - Vitals Vital signs reviewed: Yes - General General: Alert and oriented X 3, Well developed/nourished, Other (appears in pain and is verbal about being in extreme pain. She does have very recent femur fracture just above knee. Will give her pain meds for this. ) - Neck Neck: Supple, no meningeal sign, No adenopathy - Cardiac Cardiac: RRR, No murmur - Respiratory Respiratory: Clear bilaterally - Abdomen Abdomen: Soft, Non tender - Back Back: No CVA TTP - Derm Derm: Normal color, Warm and dry - Extremities Extremities: Other (left hip with drain output mild. Left distal femur with marked tenderness to movement. Normal distal pulses, color, cap refill. Pain with any slight ROM.) Results - Vitals Vitals: Vital Signs - 24 hr 11/16/16 11/16/16 11/16/16 18:47 20:09 20:20 Temperature 36.7 C Heart Rate 117 H 98 99 Respiratory 20 18 18 Rate Blood Pressure 134/86 H O2 Saturation 100 96 99 11/16/16 21:30 Temperature 36.4 C L Heart Rate 95 Respiratory 18 Rate Blood Pressure 132/91 H O2 Saturation 98 Oxygen O2 Source [With Activity] Room air O2 Source [Without Activity] Room air O2 Source Room air PD MEDICAL DECISION MAKING - ED course Complexity details: considered differential (having pain from recent femur fracture. Patient states [facility] said they did not want to do surgery for femur/knee due to hip infection. Treating with knee immobilizer. Got 2 days of pain meds from [facility]. ), d/w patient Departure - Departure Disposition: 01 Home, Self Care Clinical Impression: Left leg pain Femur fracture, left Qualifiers: Encounter type: subsequent encounter Femur location: supracondylar with intracondylar extension Fracture type: closed Fracture alignment: nondisplaced Fracture healing: with routine healing Qualified Code(s): S72.465D - Nondisplaced supracondylar fracture with intracondylar extension of lower end of left femur, subsequent encounter for closed fracture with routine healing Condition: Stable Record reviewed to determine appropriate education?: Yes Prescriptions: Oxycodone HCl/Acetaminophen [Percocet 10-325 mg Tablet] 1 each PO Q4HR PRN #30 tablet PRN Reason: Pain diazePAM [Valium] 5 mg PO TID PRN #25 tablet PRN Reason: Spasms Comments: Knee brace and continue being in a wheelchair is used typically R. Follow-up with orthopedics. Oxycodone 10 mg every 4 hours if needed for pain. Diazepam 3 times a day for muscle spasms. Follow-up with your primary care this coming week. Discharge Date/Time: 11/16/16 21:32
[2016-11-16] MEDS ORDERED: HYDROmorphone 1 MG/ML SYRINGE ONE ×2 (19:56→20:56)
[2016-11-16] MEDS ORDERED: ONDANSETRON ODT 4 MG TABLET ONE (19:56)
[2016-11-16] MEDS ORDERED: oxyCODONE/ACET 5/325 Prepack 4 PO STA (20:21)
[2016-11-16] MEDS ORDERED: oxyCODONE/ACET 5/325 Prepack 4 PO ONE (20:28)
[2016-11-16] MEDS ORDERED: diazePAM 5 MG TABLET PO STA (20:40)
[2016-11-16] MEDS ORDERED: diazePAM 5 MG TABLET PO ONE (20:56)
[2016-11-16 21:31] VITALS: BP 132/91
== END 2016-11-16 21:32 | disposition home or self-care (01) ==
LOC: EDUNIT# → ED 18:39
DX: S72.465D Nondisplaced supracondylar fracture with intracondylar extension of lower end of left femur, subsequent encounter for closed fracture with routine healing (principal); X58.XXXD Exposure to other specified factors, subsequent encounter; M79.605 Pain in left leg
CPT/HCPCS: 96372; 99283; A9270; J1170; Q0162

== ENCOUNTER → 2016-11-16 | Outpatient (CLI) | payer MEDICARE | LOC: EMS 21:50 | PROVIDERS: ATTEND Surgery | DX: Z53.9 Procedure and treatment not carried out, unspecified reason (principal) ==

== ENCOUNTER 2016-11-25 11:03 | Outpatient (CLI) | payer MEDICARE, MEDICAID | END 2016-11-25 11:04 | disposition critical access hospital (66) | LOC: EMS 11:03 | PROVIDERS: ATTEND Surgery | DX: M79.605 Pain in left leg (principal) | CPT/HCPCS: A0425; A0427 ==

== ENCOUNTER 2016-11-25 11:24 | Emergency (ER) | payer MEDICARE, MEDICAID ==
[2016-11-25] MEDS ORDERED: oxyCOD/ACETAMIN 5 MG/325 MG TABLET PO STA (12:24)
--- NOTE | 2016-11-25 12:26 | ED Physician Documentation ---
PD HPI LOWER EXT INJURY - Stated complaint Stated Complaint: LEG PX - Chief complaint Chief Complaint: Trauma Ext - History obtained from History obtained from: Patient - History of Present Illness PD HPI LOW EXT INJURY LOCATION: Other (46-year-old woman who had an absent left hip sustained a supracondylar fracture approximately 20 days ago and was sent to [facility] where she was treated conservatively. She has multiple ongoing issues, she is out of pain medications, she is having troubles with transportation and getting in and out of her house and getting to follow-up appointments. Her current knee immobilizer does not fit her well and makes her pain worse. 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 : None HEENT: Other Psych: Depression, Bipolar disorder Musculoskeletal: Osteoarthritis, Chronic back pain Derm: Psoriasis - Past Surgical History Past Surgical History: Yes General: Cholecystectomy, Other Ortho: Hip replacement, Other - Present Medications Home Medications: Ambulatory Orders Medication Instructions Recorded Confirmed Lamotrigine [Lamictal] 200 mg PO DAILY 06/19/16 11/16/16 Quetiapine Fumarate [Seroquel] 400 mg PO QPM 06/19/16 09/24/16 Albuterol 2.5 mg INH Q4HR PRN #0 neb 07/23/16 11/16/16 diazePAM [Valium] 5 - 10 mg PO TID PRN #14 tablet 09/21/16 11/16/16 oxyCODONE [Roxicodone] 5 mg PO Q4-6H PRN #15 tablet 09/24/16 Enoxaparin [Lovenox] mg SUBQ Q24H 11/16/16 Oxycodone HCl/Acetaminophen 1 each PO Q4HR PRN #30 tablet 11/16/16 [Percocet 10-325 mg Tablet] diazePAM [Valium] 5 mg PO TID PRN #25 tablet 11/16/16 Escitalopram [Lexapro] 20 mg pe PO DAILY 11/25/16 11/25/16 Lamotrigine [Lamictal] 200 mg PO DAILY 11/25/16 11/25/16 Oxycodone HCl/Acetaminophen 1 - 2 tab PO Q4H PRN #15 tablet 11/25/16 [Percocet 5-325 mg Tablet] QUEtiapine [SEROquel] 400 mg pe PO DAILY 11/25/16 11/25/16 - Allergies Allergies/Adverse Reactions: Allergies Allergy/AdvReac Type Severity Reaction Status Date / Time morphine Allergy Hallucinati Verified 11/16/16 19:00 ons - Social History Does the pt smoke?: Yes Smoking Status: Former smoker Does the pt drink ETOH?: No Does the pt have substance abuse?: No - Immunizations Immunizations are current?: Yes - POLST Patient has POLST: No PD ED PE NORMAL - Vitals Vital signs reviewed: Yes - General General: Alert and oriented X 3, No acute distress - Extremities Extremities: Other (Left leg is tender above the knee without deformity, she has a wound VAC over the greater trochanter without signs of surrounding infection. She is neurovascularly intact in the foot.) - Neuro Neuro: Alert and oriented X 3, Normal speech - Psych Psych: Normal mood, Normal affect Results - Vitals Vitals: Vital Signs - 24 hr 11/25/16 11/25/16 11:28 14:38 Temperature 36.4 C L Heart Rate 88 71 Respiratory 19 20 Rate Blood Pressure 133/96 H 136/97 H O2 Saturation 98 100 Oxygen O2 Source [] Room air O2 Source [] Room air O2 Source Room air Procedures - Splint (location) L leg Splint applied by: Tech Type of splint: Other (The tech placed a posterior long leg fiberglass splint because the knee immobilizer she was wearing was not comfortable for her.) Other: Patient tolerated well, No complications, Neurovascular intact PD MEDICAL DECISION MAKING - ED course ED course: 46-year-old woman with known knee fracture being treated conservatively presents with multiple complaints, mostly social and being out of her pain medications. Her pain medications were refilled. Social work saw her to help with the other issues including wheelchair, ramp, transportation, wound care referral. Departure - Departure Disposition: 01 Home, Self Care Clinical Impression: Encounter for management of vacuum-assisted closure (VAC) of wound Femur fracture, left Qualifiers: Encounter type: initial encounter Femur location: supracondylar with intracondylar extension Fracture type: closed Fracture alignment: nondisplaced Qualified Code(s): S72.465A - Nondisplaced supracondylar fracture with intracondylar extension of lower end of left femur, initial encounter for closed fracture Condition: Good Record reviewed to determine appropriate education?: Yes Follow-Up: Evelyn Medina MD [Provider Admit Priv/Credential] - Prescriptions: Oxycodone HCl/Acetaminophen [Percocet 5-325 mg Tablet] 1 - 2 tab PO Q4H PRN #15 tablet PRN Reason: Pain Comments: Follow-up with your orthopedic surgeon in your primary care physician, further refills of pain medication should come from either of them, not the emergency department. Discharge Date/Time: 11/25/16 15:10
[2016-11-25] MEDS ORDERED: oxyCOD/ACETAMIN 5 MG/325 MG TABLET PO ONE (12:34)
[2016-11-25] MEDS ORDERED: oxyCODONE 5 MG TABLET PO STA (13:46)
[2016-11-25] MEDS ORDERED: oxyCODONE 5 MG TABLET ONE (13:59)
[2016-11-25 14:39] VITALS: BP 136/97
== END 2016-11-25 15:10 | disposition home or self-care (01) ==
LOC: EDUNIT# → ED 11:24
DX: S72.465D Nondisplaced supracondylar fracture with intracondylar extension of lower end of left femur, subsequent encounter for closed fracture with routine healing (principal); X58.XXXD Exposure to other specified factors, subsequent encounter; J45.909 Unspecified asthma, uncomplicated; M19.90 Unspecified osteoarthritis, unspecified site; Z87.891 Personal history of nicotine dependence
CPT/HCPCS: 29505; 99283; A9270

== ENCOUNTER 2016-11-25 15:13 | Outpatient (CLI) | payer MEDICARE, MEDICAID | END 2016-11-27 15:14 | disposition home or self-care (01) | LOC: EMS 15:13 | PROVIDERS: ATTEND Surgery | DX: S72.465D Nondisplaced supracondylar fracture with intracondylar extension of lower end of left femur, subsequent encounter for closed fracture with routine healing (principal) | CPT/HCPCS: A0425; A0428 ==

== ENCOUNTER 2017-02-11 20:05 | Outpatient (CLI) | payer MEDICARE, MEDICAID | END 2017-02-11 20:06 | disposition critical access hospital (66) | LOC: EMS 20:05 | PROVIDERS: ATTEND Surgery | DX: M25.552 Pain in left hip (principal) | CPT/HCPCS: A0425; A0429 ==

== ENCOUNTER 2017-02-11 20:27 | Emergency (ER) | payer MEDICARE, MEDICAID ==
[2017-02-11] MEDS ORDERED: IBUPROFEN 400 MG TABLET PO STA (20:59)
[2017-02-11] MEDS ORDERED: LIDOCAINE PATCH 5% TOP STA (20:59)
[2017-02-11] MEDS ORDERED: IBUPROFEN 400 MG TABLET PO ONE (21:20)
[2017-02-11] MEDS ORDERED: LIDOCAINE PATCH 5% TOP ONE (21:20)
--- NOTE | 2017-02-11 21:45 | XRAY Preliminary Report ---
Exam: XR HIP W/PELVIS 2-3V LT IMPRESSION: Stable exam. [facility] SITE ID: [id number]
--- NOTE | 2017-02-11 21:48 | XRAY Report ---
EXAM: LEFT HIP AND PELVIS RADIOGRAPHY EXAM DATE: 02/11/2017 09:24 PM. HISTORY: GLF a wk ago, c/o L hip pain. COMPARISONS: 05/19/2016 and 10/07/2016. TECHNIQUE: 1 view of the pelvis and 1 view of the hip. FINDINGS: Bones: No definite acute fracture or other bone lesion. Prominent benign-appearing periosteal reactio n along proximal left femoral shaft similar to previous study. Joints: Right total hip prosthesis in anatomic alignment. No abnormal lucency associated with the pro sthesis. Previous removal of left total hip prosthesis. No change in alignment or apposition. Soft Tissues: Unremarkable. IMPRESSION: Stable exam. [facility] Referring Provider Line: [phone] SITE ID: [id number]
[2017-02-11] MEDS ORDERED: diazePAM 5 MG TABLET PO STA (22:38)
[2017-02-11] MEDS ORDERED: ACETAMINOPHEN 325 MG TABLET PO STA (22:38)
--- NOTE | 2017-02-11 22:41 | ED Physician Documentation ---
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, now wheelchair bound twisted her hip a week ago while cleaning and it still hurts has not called or seen ortho about this Review of Systems Musculoskeletal: reports: Joint pain PD PAST MEDICAL HISTORY - Past Medical History Past Medical History: Yes Cardiovascular: None Respiratory: Asthma Neuro: None Endocrine/Autoimmune: None GI: Chronic constipation 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 : None HEENT: Other Psych: Depression, Bipolar disorder Musculoskeletal: Osteoarthritis, Chronic back pain Derm: Psoriasis - Past Surgical History Past Surgical History: Yes General: Cholecystectomy, Other Ortho: Hip replacement, Other - Present Medications Home Medications: Ambulatory Orders Medication Instructions Recorded Confirmed Quetiapine Fumarate [Seroquel] 400 mg PO QPM 06/19/16 02/11/17 lamoTRIgine [Lamictal] 400 mg PO DAILY 11/25/16 02/11/17 Carisoprodol [Soma] 350 mg PO Q8H PRN #15 tablet 02/11/17 Lidocaine Patch 5% [Lidoderm Patch] 1 each TOP DAILY PRN #10 patch 02/11/17 - Allergies Allergies/Adverse Reactions: Allergies Allergy/AdvReac Type Severity Reaction Status Date / Time morphine Allergy Hallucinati Verified 02/11/17 20:37 ons - Social History Does the pt smoke?: Yes Smoking Status: Current every day smoker Does the pt drink ETOH?: No Does the pt have substance abuse?: No - Immunizations Immunizations are current?: Yes - POLST Patient has POLST: No PD ED PE NORMAL - Vitals Vital signs reviewed: Yes - HEENT HEENT: Other (poor dentition, many teeth missing) - Cardiac Cardiac: RRR - Respiratory Respiratory: No respiratory distress, Clear bilaterally - Extremities Extremities: Other (LLE shortened 2/2 hip removal, no sig deformity, no redness warmth or swelling, MSV intact) - Neuro Neuro: Alert and oriented X 3 Results - Vitals Vitals: Vital Signs - 24 hr 02/11/17 20:30 Temperature 35.9 C L Heart Rate 90 Respiratory 18 Rate Blood Pressure 110/80 O2 Saturation 97 Oxygen O2 Source [With Activity] Room air O2 Source [Without Activity] Room air O2 Source Room air - Rads (name of study) hip Radiology: See rad report (no change from prior) PD MEDICAL DECISION MAKING - ED course ED course: pt advised of neg hip/pelvis xray and plan to dc she then stated she had a ISBELL ear pain tooth pain and had no friends to call for a ride home and could not take a taxi because she did not bring her wheelchair when she came in by EMS I went to reeval her - she states hx migraines and this ISBELL is not new, no fever , neck supple, PERRL, globes soft not injected, TA non TTP, TMs slightly retracted, poor dentition but no apparent infection, considered fioricet but interacts with her other meds, already gave motrin and lido so gave tylenol for ISBELL and valium for hip mm Departure - Departure Disposition: Home, Self Care Clinical Impression: Hip sprain Qualifiers: Encounter type: initial encounter Laterality: left Qualified Code(s): S73.102A - Unspecified sprain of left hip, initial encounter Headache Qualifiers: Headache type: unspecified Headache chronicity pattern: unspecified pattern Intractability: not intractable Qualified Code(s): R51 - Headache Condition: Good Follow-Up: [facility] [Provider Group] Prescriptions: Carisoprodol [Soma] 350 mg PO Q8H PRN #15 tablet PRN Reason: muscle spasm Lidocaine Patch 5% [Lidoderm Patch] 1 each TOP DAILY PRN #10 patch PRN Reason: Pain Comments: The hip xray shows no bony injury. You may have injured the soft tissues when you twisted the hip. I recommend you follow up at your orthopedic clinic In the mean time recommend motrin tylenol soma and lidocaine patches for the pain
[2017-02-11] MEDS ORDERED: ACETAMINOPHEN 325 MG TABLET PO ONE (22:58)
[2017-02-11] MEDS ORDERED: diazePAM 5 MG TABLET PO ONE (22:58)
[2017-02-11 23:02] VITALS: BP 114/73
== END 2017-02-11 23:05 | disposition home or self-care (01) ==
LOC: EDUNIT# → ED 20:27
DX: S73.102A Unspecified sprain of left hip, initial encounter (principal); X50.1XXA Overexertion from prolonged static or awkward postures, initial encounter; Y93.E9 Activity, other interior property and clothing maintenance; Y92.009 Unspecified place in unspecified non-institutional (private) residence as the place of occurrence of the external cause; R51 Headache; Z96.642 Presence of left artificial hip joint; Z99.3 Dependence on wheelchair; F17.200 Nicotine dependence, unspecified, uncomplicated
CPT/HCPCS: 73502; 99283; A9270

== ENCOUNTER 2017-02-16 11:10 | Outpatient (CLI) | payer MEDICARE, MEDICAID | END 2017-02-16 11:11 | disposition critical access hospital (66) | LOC: EMS 11:10 | PROVIDERS: ATTEND Surgery | DX: R07.81 Pleurodynia (principal); W10.8XXA Fall (on) (from) other stairs and steps, initial encounter; Y93.9 Activity, unspecified; Y92.008 Other place in unspecified non-institutional (private) residence as the place of occurrence of the external cause | CPT/HCPCS: A0425; A0429 ==

== ENCOUNTER 2017-02-16 11:30 | Emergency (ER) | payer MEDICARE, MEDICAID ==
--- NOTE | 2017-02-16 12:33 | XRAY Preliminary Report ---
Exam: XR CHEST 1 VIEW IMPRESSION: 1. No acute disease in the chest. [facility] SITE ID: [id number]
--- NOTE | 2017-02-16 12:36 | XRAY Report ---
EXAM: CHEST RADIOGRAPHY EXAM DATE: 02/16/2017 12:20 PM. CLINICAL HISTORY: Pain. Status post fall. Maynard pain in left ribs. COMPARISON: 07/16/2016. TECHNIQUE: 1 view. FINDINGS: Lungs/Pleura: No focal opacities evident. No pleural effusion. No pneumothorax. Mediastinum: Within exam limitations, the cardiomediastinal contour is normal. Other: No acute osseous abnormalities are identified. IMPRESSION: 1. No acute disease in the chest. [facility] Referring Provider Line: [phone] SITE ID: [id number]
[2017-02-16] MEDS ORDERED: HYDROcod/ACETAM 5/325 MG TABLET PO STA (13:38)
[2017-02-16] MEDS ORDERED: LIDOCAINE PATCH 5% TOP STA (13:38)
--- NOTE | 2017-02-16 13:43 | ED Physician Documentation ---
History of Present Illness - Stated complaint Stated Complaint: GLF - Chief complaint Chief Complaint: General - History obtained from History obtained from: Patient, EMS - History of Present Illness Timing: Today Pain level max: 10 Pain level now: 10 Improved by: rest Worsened by: movement - Additonal information Additional information: Patient is a 46-year-old female who presents to the emergency department after falling down the stairs today. States does not have a ramp in her house. 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 She states that she normally carries her wheelchair up the stairs. Did not lose consciousness. Is complaining of pain to the left ribs. Has not taken anything for this. Review of Systems Ten Systems: 10 systems reviewed and negative Constitutional: denies: Fever, Chills Eyes: denies: Decreased vision Ears: denies: Ear pain Nose: denies: Rhinorrhea / runny nose, Congestion Throat: denies: Sore throat Cardiac: denies: Chest pain / pressure Respiratory: denies: Cough GI: denies: Nausea, Vomiting, Diarrhea Skin: denies: Rash Musculoskeletal: denies: Neck pain, Back pain Neurologic: denies: Focal weakness, Numbness, Confused, Altered mental status, Headache, Head injury, LOC PD PAST MEDICAL HISTORY - Past Medical History Cardiovascular: None Respiratory: Asthma Neuro: None Endocrine/Autoimmune: None GI: Chronic constipation 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 HEENT: Other Psych: Depression, Bipolar disorder Musculoskeletal: Osteoarthritis, Chronic back pain Derm: Psoriasis - Past Surgical History Past Surgical History: Yes General: Cholecystectomy, Other Ortho: Hip replacement, Other - Present Medications Home Medications: Ambulatory Orders Medication Instructions Recorded Confirmed Quetiapine Fumarate [Seroquel] 400 mg PO QPM 06/19/16 02/11/17 lamoTRIgine [Lamictal] 400 mg PO DAILY 11/25/16 02/11/17 Carisoprodol [Soma] 350 mg PO Q8H PRN #15 tablet 02/11/17 Lidocaine Patch 5% [Lidoderm Patch] 1 each TOP DAILY PRN #10 patch 02/11/17 Hydrocodone/Acetaminophen 1 - 2 each PO Q6H PRN #14 tablet 02/16/17 [Hydrocodon-Acetaminophen 5-325] Lidocaine Patch 5% [Lidoderm Patch] 1 patch TOP DAILY PRN #10 patch 02/16/17 - Allergies Allergies/Adverse Reactions: Allergies Allergy/AdvReac Type Severity Reaction Status Date / Time morphine Allergy Hallucinati Verified 02/16/17 11:49 ons - Social History Does the pt smoke?: Yes Smoking Status: Current every day smoker Does the pt drink ETOH?: No Does the pt have substance abuse?: No - Immunizations Immunizations are current?: Yes - POLST Patient has POLST: No PD ED PE NORMAL - Vitals Vital signs reviewed: Yes - General General: Alert and oriented X 3, No acute distress, Well developed/nourished - HEENT HEENT: Moist mucous membranes - Neck Neck: Supple, no meningeal sign - Cardiac Cardiac: RRR, Strong equal pulses - Respiratory Respiratory: No respiratory distress, Clear bilaterally, Other (Tender to palpation over the left anterior lower ribs. Small ecchymosis. No crepitus.) - Abdomen Abdomen: Soft, Non tender, Non distended - Back Back: No CVA TTP, No spinal TTP - Derm Derm: Warm and dry - Neuro Neuro: Alert and oriented X 3 Results - Vitals Vitals: Vital Signs - 24 hr 02/16/17 11:40 Temperature 35.9 C L Heart Rate 114 H Respiratory 24 Rate Blood Pressure 95/74 O2 Saturation 89 L Oxygen O2 Source [With Activity] Room air O2 Source [Without Activity] Room air O2 Source Room air - Rads (name of study) cxr Radiology: Prelim report reviewed, EMP read contemporaneously, See rad report ( normal) PD MEDICAL DECISION MAKING - ED course Complexity details: reviewed results, re-evaluated patient, considered differential, d/w patient ED course: Patient is a 46-year-old female who presents to the emergency department after a fall down the stairs. No acute findings on x-ray. Appears more consistent with a rib contusion and fracture. Given Lidoderm patches will place on a small amount of hydrocodone for home. Will follow up with her doctor for further evaluation and care. Patient counseled regarding signs and symptoms for which I believe and urgent re-evaluation would be necessary. Patient with good understanding of and agreement to plan and is comfortable going home at this time This document was made in part using voice recognition software. While efforts are made to proofread this document, sound alike and grammatical errors may occur. Departure - Departure Clinical Impression: Contusion of rib on left side Qualifiers: Encounter type: initial encounter Qualified Code(s): S20.212A - Contusion of left front wall of thorax, initial encounter Condition: Good Instructions: ED Contusion Vs Minor Fx Rib Follow-Up: Radha Hines ARNP [Primary Care Provider] - Within 1 week Prescriptions: Hydrocodone/Acetaminophen [Hydrocodon-Acetaminophen 5-325] 1 - 2 each PO Q6H PRN #14 tablet PRN Reason: pain Lidocaine Patch 5% [Lidoderm Patch] 1 patch TOP DAILY PRN #10 patch PRN Reason: pain Comments: Return if you worsen. This will likely hurt for several weeks. Further medications should be obtained by your doctor.
[2017-02-16] MEDS ORDERED: HYDROcod/ACETAM 5/325 MG TABLET ONE (13:50)
[2017-02-16] MEDS ORDERED: LIDOCAINE PATCH 5% TOP ONE (13:51)
[2017-02-16 13:59] VITALS: BP 118/66
== END 2017-02-16 13:59 | disposition home or self-care (01) ==
LOC: EDSEX → EDUNIT# → ED 11:30
DX: S20.212A Contusion of left front wall of thorax, initial encounter (principal); W10.8XXA Fall (on) (from) other stairs and steps, initial encounter; Y92.019 Unspecified place in single-family (private) house as the place of occurrence of the external cause; J45.909 Unspecified asthma, uncomplicated; M19.90 Unspecified osteoarthritis, unspecified site; F17.200 Nicotine dependence, unspecified, uncomplicated
CPT/HCPCS: 71010; 99283; 99284; A9270

== ENCOUNTER 2017-07-07 13:26 | Emergency (ER) | payer MEDICARE, MEDICAID ==
--- NOTE | 2017-07-07 14:02 | XRAY Preliminary Report ---
Exam: XR WRIST 4 VIEW LT IMPRESSION: Normal wrist radiography. [facility] SITE ID: [id number]
--- NOTE | 2017-07-07 14:04 | XRAY Report ---
EXAM: LEFT WRIST RADIOGRAPHY EXAM DATE: 07/07/2017 01:57 PM. CLINICAL HISTORY: Left wrist pain since a recent fall. COMPARISON: None. TECHNIQUE: 4 views. FINDINGS: Bones: Normal. No fractures or bone lesions. Joints: Normal. No subluxations. Soft Tissues: Normal. No soft tissue swelling. IMPRESSION: Normal wrist radiography. [facility] Referring Provider Line: [phone] SITE ID: [id number]
[2017-07-07] MEDS ORDERED: LORazepam 0.5 MG TABLET PO STA (16:02)
[2017-07-07] MEDS ORDERED: HYDROcod/ACETAM 5/325 MG TABLET PO STA (16:02)
--- NOTE | 2017-07-07 16:25 | ED Physician Documentation ---
PD HPI Fall - Stated complaint Stated Complaint: PANIC ATTACK - Chief complaint Chief Complaint: MHE - History obtained from History obtained from: Patient - History of Present Illness Mechanism of injury: Other (fell from wheelchair as tried to get up (feet got tangled in footrest). Fell onto left wrist 2 days ago, and still hurts. Also having lots of anxiety stress due to mother recently dying.) Fall distance: Sitting position Where injury occurred: Home Injury(ies) location: Left Lower Extremity (knee and ankle) Quality of pain: Pain Associated symptoms: No: LOC, AMS Worsens with: Movement, Palpation Contributing factors: No: Anticoagulated Similar symptoms before: Has not had sx before Review of Systems Constitutional: denies: Fever, Chills Cardiac: denies: Chest pain / pressure GI: denies: Abdominal Pain Skin: denies: Rash, Lesions, Abrasion (s), Laceration (s) Neurologic: reports: Generalized weakness. 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 HEENT: Other Psych: Depression, Bipolar disorder Musculoskeletal: Osteoarthritis, Chronic back pain Derm: Psoriasis - Past Surgical History Past Surgical History: Yes General: Cholecystectomy, Other Ortho: Hip replacement, Other - Present Medications Home Medications: Ambulatory Orders Medication Instructions Recorded Confirmed Quetiapine Fumarate [Seroquel] 400 mg PO QPM 06/19/16 02/11/17 lamoTRIgine [Lamictal] 400 mg PO DAILY 11/25/16 02/11/17 Carisoprodol [Soma] 350 mg PO Q8H PRN #15 tablet 02/11/17 Lidocaine Patch 5% [Lidoderm Patch] 1 each TOP DAILY PRN #10 patch 02/11/17 Hydrocodone/Acetaminophen 1 - 2 each PO Q6H PRN #14 tablet 02/16/17 [Hydrocodon-Acetaminophen 5-325] Lidocaine Patch 5% [Lidoderm Patch] 1 patch TOP DAILY PRN #10 patch 02/16/17 Lorazepam [Ativan] 1 mg PO BID PRN #15 tablet 07/07/17 Oxycodone HCl/Acetaminophen 1 each PO Q6H PRN #15 tablet 07/07/17 [Percocet 5-325 mg Tablet] - Allergies Allergies/Adverse Reactions: Allergies Allergy/AdvReac Type Severity Reaction Status Date / Time morphine Allergy Hallucinati Verified 02/16/17 11:49 ons - Social History Does the pt smoke?: Yes Smoking Status: Current every day smoker Does the pt drink ETOH?: No Does the pt have substance abuse?: No - Immunizations Immunizations are current?: Yes - POLST Patient has POLST: No PD ED PE NORMAL - Vitals Vital signs reviewed: Yes - General General: Alert and oriented X 3, No acute distress, Well developed/nourished - HEENT HEENT: Atraumatic - Neck Neck: Supple, no meningeal sign, No bony TTP, No adenopathy - Cardiac Cardiac: RRR, No murmur - Respiratory Respiratory: Clear bilaterally - Abdomen Abdomen: Soft, Non tender - Derm Derm: Normal color, Warm and dry - Extremities Extremities: Other (left wrist with some tenderness dorsally, but no obvious deformity nor laxity. Not tender in snuffbox. ) Results - Vitals Vitals: Oxygen O2 Source [With Activity] Room air O2 Source [Without Activity] Room air O2 Source Room air - Rads (name of study) left wrist Radiology: Prelim report reviewed (no fractures), EMP read contemporaneously PD MEDICAL DECISION MAKING - ED course Complexity details: reviewed old records (SAMMIE shows no narcotics since March) , considered differential (she fell from her wheelchair and hurt left wrist. Her parent just recently too, and this is causing stress, but it also caused her situational stress and anxiety. ), d/w patient Departure - Departure Disposition: 01 Home, Self Care Clinical Impression: Reactive depression (situational) Accidental fall from wheelchair Qualifiers: Encounter type: initial encounter Qualified Code(s): W05.0XXA - Fall from non- moving wheelchair, initial encounter Left wrist sprain Qualifiers: Encounter type: initial encounter Qualified Code(s): S63.502A - Unspecified sprain of left wrist, initial encounter Condition: Stable Record reviewed to determine appropriate education?: Yes Instructions: ED Stress React, ED Sprain Wrist Follow-Up: Radha Hines ARNP [Primary Care Provider] - Prescriptions: Lorazepam [Ativan] 1 mg PO BID PRN #15 tablet PRN Reason: Anxiety Oxycodone HCl/Acetaminophen [Percocet 5-325 mg Tablet] 1 each PO Q6H PRN #15 tablet PRN Reason: Pain Comments: Use a wrist splint for the wrist sprain. Use this for 1-2 weeks until fully better. Your x-ray appears normal without anything broken or fractured. Use Tylenol if needed for pains. Seek counseling help through [facility] for the situational depression. Short-term you can use Ativan twice a day and particularly at bedtime for sleep to help with sleep and anxiety. Follow-up with your primary care in the next week or so, call for an appointment. Discharge Date/Time: 07/07/17 16:42
[2017-07-07 16:33] VITALS: BP 124/97
== END 2017-07-07 16:42 | disposition home or self-care (01) ==
LOC: ED 13:26
DX: F43.21 Adjustment disorder with depressed mood (principal); S63.502A Unspecified sprain of left wrist, initial encounter; R53.1 Weakness; W05.0XXA Fall from non-moving wheelchair, initial encounter; Y92.009 Unspecified place in unspecified non-institutional (private) residence as the place of occurrence of the external cause; F17.200 Nicotine dependence, unspecified, uncomplicated
CPT/HCPCS: 73110; 93005; 99283; A9270

== ENCOUNTER 2018-02-08 09:34 | Outpatient (CLI) | payer MEDICARE, MEDICAID | END 2018-02-08 09:35 | disposition critical access hospital (66) | LOC: EMS 09:34 | PROVIDERS: ATTEND Surgery | DX: R41.82 Altered mental status, unspecified (principal) | CPT/HCPCS: A0425; A0429 ==

== ENCOUNTER 2018-02-08 09:50 | Inpatient (IN) | payer MEDICARE, MEDICAID ==
[2018-02-08] MEDS ORDERED: LORazepam 2 MG/ML VIAL IM STA (10:00)
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
[2018-02-08] MEDS ORDERED: LORazepam 2 MG/ML VIAL IVP STA (10:20)
[2018-02-08] MEDS ORDERED: SODIUM CHLORIDE 0.9% 2,000 ML IV ONE (10:32)
[2018-02-08 11:02] LABS: CK- CREATINE KINASE 329 IU/L (22-269)
[2018-02-08 11:08] LABS: ALBUMIN 4.4 g/dL (3.2-5.5); ALBUMIN/GLOBULIN RATIO 1.1 (1.0-2.2); BILIRUBIN,TOTAL 0.3 mg/dL (0.2-1.0); CALCIUM 9.1 mg/dL (8.5-10.3); CREATININE 0.9 mg/dL (0.4-1.0); TOTAL PROTEIN 8.4 g/dL (6.7-8.2)
[2018-02-08 11:19] LABS: BASOPHILS % (AUTO) 0.3 %; EOSINOPHILS # (AUTO) 0.1 10^3/uL (0.0-0.7); EOSINOPHILS % (AUTO) 1.3 %; HGB - HEMOGLOBIN 14.3 g/dL (12.0-16.0); LYMPHOCYTES # (AUTO) 2.3 10^3/uL (1.5-3.5); LYMPHOCYTES % (AUTO) 25.3 %; MEAN CORPUSCULAR HEMOGLOBIN 30.8 pg (27.0-31.0); MEAN CORPUSCULAR HGB CONC 32.6 g/dL (32.0-36.0); MEAN CORPUSCULAR VOLUME 94.7 fL (81.0-99.0); MEAN PLATELET VOLUME 7.5 fL (7.9-10.8); MONOCYTES # (AUTO) 0.8 10^3/uL (0.0-1.0); MONOCYTES % (AUTO) 9.5 %; NEUTROPHILS # (AUTO) 5.7 10^3/uL (1.5-6.6); NEUTROPHILS % (AUTO) 63.6 %; PLT - PLATELET COUNT 170 10^3/uL (130-450); RED BLOOD COUNT 4.64 10^6/uL (4.20-5.40); RED CELL DISTRIBUTION WIDTH 14.4 % (12.0-15.0)
[2018-02-08 11:20] LABS: MUDS CUTOFF CONCENTRATIONS CUTOFF CONC BELOW:
[2018-02-08 11:27] LABS: BILIRUBIN,URINE NEGATIVE (NEGATIVE); GLUCOSE, URINE (UA) NEGATIVE (NEGATIVE); KETONES,URINE (UA) NEGATIVE (NEGATIVE); LEUKOCYTE ESTERASE, URINE NEGATIVE (NEGATIVE); NITRITE,URINE NEGATIVE (NEGATIVE); OCCULT BLOOD,URINE NEGATIVE (NEGATIVE); PH,URINE 5.5 PH (5.0-7.5); PROTEIN,URINE NEGATIVE (NEGATIVE); UROBILINOGEN,URINE 0.2 (NORMAL) E.U./dL (NORMAL)
[2018-02-08 11:30] LABS: CLARITY,URINE CLEAR (CLEAR); HCG UR QUAL NEGATIVE
[2018-02-08 11:40] LABS: AMPHETAMINE SCREEN,URINE POSITIVE (NEGATIVE); BENZODIAZEPINES SCREEN, URINE POSITIVE (NEGATIVE); COCAINE SCREEN URINE NEGATIVE (NEGATIVE); METHADONE SCREEN, URINE NEGATIVE (NEGATIVE); METHAMPHETAMINES SCREEN, URINE POSITIVE (NEGATIVE); OPIATE SCREEN, URINE POSITIVE (NEGATIVE); OXYCODONE SCREEN, URINE NEGATIVE (NEGATIVE); PROPOXYPHENE SCREEN, URINE NEGATIVE (NEGATIVE); TRICYCLIC ANTIDEPRESSANT,URINE POSITIVE (NEGATIVE)
--- NOTE | 2018-02-08 11:53 | CT Report ---
Reason: ams Procedure Date: 02/08/2018 Accession Number: [id number] / [id number] Procedure: CT - Head W/O CPT Code: FULL RESULT: EXAM: CT HEAD EXAM DATE: 02/08/2018 10:54 AM. CLINICAL HISTORY: Altered mental status. COMPARISON: 11/18/2014. TECHNIQUE: Multiaxial CT images were obtained from the foramen magnum to the vertex. Reformats: Sagittal and coronal. IV contrast: None. In accordance with CT protocol optimization, one or more of the following dose reduction techniques were utilized for this exam: automated exposure control, adjustment of mA and/or KV based on patient size, or use of iterative reconstructive technique. FINDINGS: Parenchyma: No intraparenchymal hemorrhage. No evidence of mass, midline shift, or CT findings of infarction. Maldonado-white differentiation is distinct. Extraaxial Spaces: Normal for age. No subdural or epidural collections identified. Ventricles: Normal in size and position. Sinuses and Orbits: Imaged paranasal sinuses, orbits, and mastoids show no significant abnormality. Bones: No evidence of fracture or calvarial defect. Other: Calcified right scalp subcutaneous lesion on series 8 image 18 measuring 0.6 x 1.2 cm, previously 1.1 x 1.6 cm. IMPRESSION: No acute intracranial abnormality. [facility]
[2018-02-08] MEDS ORDERED: LACTATED RINGERS 2,000 ML IV ONE (12:39)
--- NOTE | 2018-02-08 13:06 | XRAY Report ---
Reason: ams Procedure Date: 02/08/2018 Accession Number: [id number] / [id number] Procedure: XR - Chest 1 View X-Ray CPT Code: 99132 FULL RESULT: EXAM: CHEST RADIOGRAPHY EXAM DATE: 02/08/2018 12:39 PM. CLINICAL HISTORY: Altered mental status. COMPARISON: CHEST 1 VIEW 02/16/2017 12:07 PM. TECHNIQUE: Upright AP view. FINDINGS: Lungs/Pleura: Lung volumes mildly low. There is minimal left basilar airspace opacity. Right lung clear. No interstitial abnormality. No pneumothorax or gross pleural fluid. Mediastinum: Within exam limitations, the cardiomediastinal contour is normal. Other: None. IMPRESSION: Low lung volumes with minimal left basilar airspace opacity which may reflect atelectasis rather than pneumonitis. [facility]
[2018-02-08] MEDS ORDERED: NALOXONE 0.4 MG/ML VIAL IVP STA (13:09)
[2018-02-08] MEDS ORDERED: SODIUM CHLORIDE FLUSH 0.9% 10 ML SYRINGE IVP PRN (14:18)
[2018-02-08] MEDS ORDERED: DEXTROSE 5%-0.9% NACL 1,000 ML IV SCH (15:00)
[2018-02-08] MEDS ORDERED: SODIUM CHLORIDE FLUSH 0.9% 10 ML SYRINGE IVP SCH (17:00)
[2018-02-08] MEDS ORDERED: IOPAMIDOL-300 100 ML VIAL ONE (17:02)
[2018-02-08 17:11] LABS: MAGNESIUM 1.9 mg/dL (1.7-2.8)
[2018-02-08] MEDS ORDERED: IOPAMIDOL-300 100 ML VIAL IVP ONE (18:00)
--- NOTE | 2018-02-08 18:15 | CT Report ---
Reason: Elevated LFTs Procedure Date: 02/08/2018 Accession Number: [id number] / [id number] Procedure: CT - Abdomen/Pelvis W/ CPT Code: FULL RESULT: EXAM: CT ABDOMEN AND PELVIS EXAM DATE: 02/08/2018 05:39 PM. CLINICAL HISTORY: Elevated LFTs. COMPARISONS: ABD/PEL 08/16/2009 12:48 PM HIP W/PELVIS 2-3V LT 02/11/2017 9:04 PM. TECHNIQUE: Routine helical CT imaging was performed through the abdomen and pelvis. IV contrast: ISOVUE 300 100mL. Enteric contrast: No. Reconstructions: Coronal and sagittal. In accordance with CT protocol optimization, one or more of the following dose reduction techniques were utilized for this exam: automated exposure control, adjustment of mA and/or KV based on patient size, or use of iterative reconstructive technique. FINDINGS: Lung Bases: Bibasilar atelectasis. Liver: Normal. No masses. Gallbladder/Bile Ducts: Postoperative changes of cholecystectomy. No biliary dilatation. Spleen: Normal. Pancreas: Normal. Adrenal Glands: Normal. Kidneys: Lobular, atrophic kidneys. 3 mm nonobstructing left renal calculus. Peritoneal Cavity/Bowel: Normal. No free fluid, free air or adenopathy. No masses or acute inflammatory process. Pelvic Organs: Leiomyomatous uterus. No pelvic adenopathy. No free fluid. Vasculature: No aneurysms or other significant abnormality. Bones: Right hip replacement. Chronic changes in the left hip, stable from previous plain film 02/11/2017. Other: Postoperative changes in the anterior abdominal wall. IMPRESSION: Postoperative changes of cholecystectomy. No evident etiology for elevated LFTs. RADIA
--- NOTE | 2018-02-08 18:32 | HISTORY & PHYSICAL EXAMINATION ---
DATE OF SERVICE: 02/08/2018 Physician: Melissa Gonzalez MD HISTORY OF PRESENT ILLNESS: This is a 47-year-old white female with a history of asthma on p.r.n. inhalers, history of hip fracture with surgery and the hardware got infected and needed to be removed and she basically has no adequate bone support and is wheelchair bound, history of depression and bipolar disorder. The patient was last seen by her last evening and at that time, at dinner, she was not hungry and complained of nausea and had vomiting. The next time he saw her was when he awoke and found her sitting in the same position in the wheelchair still at the dinner table nearly unresponsive. He called paramedics for transport here. In the Emergency Room, she was moaning and thrashing, but not following commands. She was found to be hypothermic, had elevated CK consistent with rhabdomyolysis and with suspicion for systemic inflammatory response but the underlying infectious source not yet clear, and is being admitted to the ICU for these. PAST MEDICAL HISTORY: Asthma, depression, bipolar disorder, total hip replaced and infected hardware that needed to be removed and she is now wheelchair bound. REVIEW OF SYSTEMS: There has been no recent fever, cough, diarrhea, change in medications. The house was very cold and the patient even felt hypothermic on presentation. A comprehensive review of systems was performed by chart review and what the patient could answer and the pertinent positives are listed, the rest are negative. ALLERGIES: MORPHINE, WHICH CAUSED HALLUCINATIONS. MEDICATIONS 1. Seroquel 400 q.p.m. 2. Ventolin inhaler p.r.n. 3. Divalproex 250 b.i.d. 4. Trazodone 300 q.p.m. FAMILY HISTORY: Unknown SOCIAL HISTORY: The patient lives with her , is wheelchair bound. She is a smoker, uses no alcohol and denied illicit drug use; (however, there were multiple drugs present on her urine tox screen, see below). PHYSICAL EXAMINATION GENERAL: Obtunded white female. She is supine and does not appear in distress. VITAL SIGNS: Her respiratory rate is between 8 and 10. Blood pressure at its lowest in the Emergency Room was 87/60 (after Ativan, given for sedation to be able to lay still for a CT scan). Her blood pressure now is 111/78, pulse is 94 in sinus rhythm, room air saturation 92%. HEENT: Reveals dry oral mucosa. NECK: Without JVD or carotid bruits. LUNGS: Clear. HEART: Sounds distant. ABDOMEN: Soft. EXTREMITIES: Without clubbing, cyanosis, edema. NEUROLOGIC: Unable to evaluate. LABORATORY DATA: Lactic acid 1.5, sodium 138, potassium 4.2, BUN 24, creatinine 0.9, AST 495, ALT 339, alkaline phosphatase 179, bilirubin normal at 0.3. All her liver tests were normal approximately a year ago on lab testing and in all her past tests. Ammonia is now 46.4. Troponins have been undetectable x2. Total CK is 329, lipase elevated at 135. White blood count 9.0 with a normal differential. Hemoglobin 14 with a normal MCV and RDW. Platelet count normal at 170. No INR was done. Urinalysis showed a specific gravity that was high, but otherwise unremarkable. Serum ethanol level was not detectable but urine toxicology screen was positive for opiates, tricyclics, amphetamine, methamphetamine, benzodiazepines, and marijuana. Chest x-ray: No active pulmonary disease. EKG: Normal sinus rhythm with minimal ST elevation in V1 and V2, no reciprocal ST depressions. IMPRESSION/DIAGNOSES: 1. Altered mental status, which could be from her marked hypothermia, from elevated ammonia level due to the liver abnormality or possibly from an occult infection or from an unknown drug ingestion. 2. Hypothermia, with exposure in a cold indoor environment even though it was indoor. 3. Elevated liver tests of unknown etiology; elevated lipase which may be a phase reactant. 4. Rhabdomyolysis, as evidenced by the elevated CPK, from maintaining the same body position in the wheelchair for many hours. 5. Drug abuse as evidenced by her abnormal toxicology screen. 6. Abnormal EKG, which is probably findings from hypothermia. 7. Wheelchair bound because of the hip surgery complication and removed joint. PLAN 1. Admit the patient to the ICU on telemetry. 2. Begin IV fluids that are warmed and a warming apparatus. 3. Follow her BUN, creatinine and CK daily. Follow her liver test daily and check the amylase. 4. Obtain imaging of her abdomen to rule out hepatitis, pancreatitis, any other obstructive or infectious etiology. The potential for drug ingestion causing the increased LFTs is also present and may not appear in imaging. 5. Recheck her EKG as she warms up to assure that the ST elevations have resolved. 6. Culture her blood, but hold on any empiric IV antibiotics until there is an infectious source that becomes evident. Deep venous thrombosis prophylaxis: SCDs. CODE STATUS: FULL CODE. ATTESTATION: The patient expects to be discharged or transferred to another facility in 96 hours: Yes. TD: 02/08/2018 17:41 [email or web address]
[2018-02-08 20:21] VITALS: BP 103/73
[2018-02-08] MEDS ORDERED: QUEtiapine 100 MG TABLET PO SCH (21:00)
[2018-02-08] MEDS ORDERED: FAMOTIDINE 20 MG/50 ML 50 ML IV SCH (21:00)
--- NOTE | 2018-02-08 22:26 | DISCHARGE SUMMARY ---
Discharge Summary Admit Date: 02/08/18 Discharge Date: 02/08/18 (Pt left AMA) Discharging Provider: Dr Attila Springer MD Condition at Discharge: Fair Discharge Disposition: 01 Home, Self Care - DIAGNOSES Admission Diagnoses: Hypothermia, hypersomnolence, elevated LFTs, bradypnea, altered mental status Discharge Diagnoses with Status of Each Condition: Altered mental statusresolved, patient is back at baseline Elevated LFTsno change Hypothermia-improved, not resolved Bradypneaimproved, not resolved Bipolar disorderstable - HPI History of Present Illness: Patient was admitted earlier today by my colleague after she was found by her who noted that she had been in the same position in her wheelchair overnight and was stooped over unresponsive. Paramedics were called and the patient was found to be hypothermic with core body temperature and the high 80s Fahrenheit, and respiratory rate diminished as low as single digits. She was brought into the emergency room for evaluation and did have some improvement with Narcan, and labs showed elevated LFTs, and multiple findings in the you tox including methamphetamine, opiate, benzodiazepine, THC. Patient was initially minimally responsive on admission but woke and became more arousable throughout the stay and eventually awakened fully and became quite upset and was demanding to leave. I was notified by the nursing staff that the patient wished to leave AGAINST MEDICAL ADVICE, at which point I arrived to evaluate the patient. I found her sitting upright in her hospital bed. She was cursing, using profanity, was upset, and dismissive of most everything that I chand d to say. I did inform her very explicitly of the events leading up to her hospital admission, and asked her to repeat them back to me to confirm that she understood. I informed her that we did not have all of the evaluation completed, and could not guarantee her safety should she leave the hospital and informed her that if she decided to do so it would be against my advice. She voiced understanding and persisted in her desire to leave. She was alert and oriented to person, place, and date. She was able to provide me with her home address, date of . She was able to call her spouse to come pick her up. She confirmed that she would be taking care of at home and had a safe place to go. After informing her of the life-threatening hypothermia, hypotension, and still unexplained elevated LFTs patient was not concerned about these and continued to express her demands to go home at which point the AMA paperwork was signed and the patient left on her own accord. Of note, the patient does have a history of bipolar disorder and did have some altered mental status at admission. It is my estimation that she is at her baseline at the time of her own decision to leave AMA and though she may have some mental deficiencies she is nowhere near the point where she does not have mental capacity to decide for herself to leave. There was not enough of a mental incapacitation to justify holding her against her will. - HOSPITAL COURSE Hospital Course: See above, patient became more awake and demented to leave AGAINST MEDICAL ADVICE. - ALLERGIES Allergies/Adverse Reactions: Allergies Allergy/AdvReac Type Severity Reaction Status Date / Time morphine Allergy Hallucinati Verified 02/08/18 10:09 ons - MEDICATIONS Home Medications: Ambulatory Orders Medication Instructions Recorded Confirmed Quetiapine Fumarate [Seroquel] 400 mg PO QPM 06/19/16 02/08/18 Albuterol Sulf [Ventolin Hfa 2 puffs INH Q4H PRN 02/08/18 Inhaler] Divalproex Sodium 250 mg PO BID 02/08/18 02/08/18 Trazodone HCl 300 mg PO QPM 02/08/18 - PHYSICAL EXAM AT DISCHARGE General Appearance: positive: No acute distress Neurologic/Psychiatric: positive: Oriented x3, Other (Patient was upset, did not allow further examination. But she was well oriented enough to be decisional.) - LABS Result Diagrams: 02/08/18 10:30 02/08/18 10:30 - TIME SPENT Time Spent in Discharge (Minutes): 36
== END 2018-02-08 21:38 | disposition left against medical advice (07) | DRG 923 ==
LOC: EDUNIT# → ED 09:50 → ICU 14:18
PROVIDERS: ADMIT Internal Medicine; ATTEND Family Medicine Sports Medicine
DX: T68.XXXA Hypothermia, initial encounter (principal); R41.0 Disorientation, unspecified; R94.31 Abnormal electrocardiogram [ECG] [EKG]; M62.82 Rhabdomyolysis; R78.1 Finding of opiate drug in blood; R78.5 Finding of other psychotropic drug in blood; R78.4 Finding of other drugs of addictive potential in blood; G93.89 Other specified disorders of brain; R40.0 Somnolence; R74.8 Abnormal levels of other serum enzymes; R06.89 Other abnormalities of breathing; F17.200 Nicotine dependence, unspecified, uncomplicated; I95.9 Hypotension, unspecified; Z90.49 Acquired absence of other specified parts of digestive tract; X31.XXXA Exposure to excessive natural cold, initial encounter; Z89.622 Acquired absence of left hip joint; F19.10 Other psychoactive substance abuse, uncomplicated; F31.9 Bipolar disorder, unspecified; F17.210 Nicotine dependence, cigarettes, uncomplicated; J45.909 Unspecified asthma, uncomplicated; Z53.29 Procedure and treatment not carried out because of patient's decision for other reasons; Z79.899 Other long term (current) drug therapy; Z89.629 Acquired absence of unspecified hip joint; Z99.3 Dependence on wheelchair
CPT/HCPCS: 36415; 51702; 70450; 71045; 74177; 80053; 80306; 80320; 81001; 81003; 81025; 82140; 82150; 82550; 83605; 83690; 83735; 84484; 85025; 87040; 87086; 87150; 93005; 96361; 96374; 96375; 99284; 99285

== ENCOUNTER 2018-10-21 08:08 | Emergency (ER) | payer MEDICARE, MEDICAID ==
--- NOTE | 2018-10-21 08:14 | ED Physician Documentation ---
History of Present Illness - Stated complaint Stated Complaint: LT ANKLE INJURY - History obtained from History obtained from: Patient - History of Present Illness Timing: Yesterday - Additonal information Additional information: Patient is a 48-year-old female with chronic left lower extremity changes presenting with left ankle and foot pain after injury that occurred last night. Patient reports that her left leg is " weight" as she has had a complicated orthopedic surgeries resulting in lack of hip bones on the left side. Patient reports that she was lifting her leg as usual last night when the foot struck the floor in a hard fashion. Patient reported that she elevated and iced the ankle overnight, but has exquisite pain particularly to the lateral malleoli and dorsum of the lateral foot. Patient denies other changes in strength, range of motion, sensation from baseline. No abrasion, ecchymosis, laceration. No other improving or worsening factors noted. No other injuries. 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 : None HEENT: Other Psych: Depression, Bipolar disorder Musculoskeletal: Osteoarthritis, Chronic back pain Derm: Psoriasis - Past Surgical History Past Surgical History: Yes General: Cholecystectomy, Other Ortho: Hip replacement, Other - Present Medications Home Medications: Ambulatory Orders Medication Instructions Recorded Confirmed Quetiapine Fumarate [Seroquel] 400 mg PO QPM 06/19/16 02/08/18 Albuterol Sulf [Ventolin Hfa 2 puffs INH Q4H PRN 02/08/18 Inhaler] Divalproex Sodium 250 mg PO BID 02/08/18 02/08/18 Trazodone HCl 300 mg PO QPM 02/08/18 - Allergies Allergies/Adverse Reactions: Allergies Allergy/AdvReac Type Severity Reaction Status Date / Time morphine Allergy Hallucinati Verified 10/21/18 08:19 ons - Social History Does the pt smoke?: Yes Smoking Status: Current every day smoker Does the pt drink ETOH?: No Does the pt have substance abuse?: No - Immunizations Immunizations are current?: Yes - POLST Patient has POLST: No PD ED PE NORMAL - Vitals Vital signs reviewed: Yes - General General: Alert and oriented X 3, No acute distress, Well developed/nourished - HEENT HEENT: Atraumatic, Moist mucous membranes - Neck Neck: Supple, no meningeal sign - Cardiac Cardiac: Strong equal pulses - Respiratory Respiratory: No respiratory distress - Derm Derm: Normal color, Warm and dry, No rash - Extremities Extremities: No deformity. No: No tenderness to palpate (Left lateral malleoli pain, pain to dorsum of left foot), No edema (Chronic pedal edema, 1+ bilaterally) - Neuro Neuro: Alert and oriented X 3, No motor deficit, No sensory deficit, Other (No changes from baseline) - Psych Psych: Normal mood, Normal affect Results - Vitals Vitals: Vital Signs - 24 hr 10/21/18 08:13 Temperature 36.5 C Heart Rate 85 Respiratory 22 Rate Blood Pressure 127/92 H O2 Saturation 96 Oxygen O2 Source [With Activity] Room air O2 Source [Without Activity] Room air O2 Source Room air PD MEDICAL DECISION MAKING - ED course Complexity details: reviewed results, re-evaluated patient, considered differential, d/w patient ED course: Patient presenting with concern for left ankle and left foot injury. Patient does have complicated baseline of left lower extremity but do not find obvious new signs of trauma or neurological deficit. Additionally do not find evidence of infection, gout, DVT or other complication. Plain films obtained which did not find evidence of acute new fracture, but multiple incidental findings and patient provided with this information. Discussed other supportive cares, return precautions, and appropriate follow-up.Otherwise, feel that she is safe to discharge home. Departure - Departure Disposition: 01 Home, Self Care Clinical Impression: Pain in extremity Qualifiers: Extremity pain location: lower extremity Laterality: left Qualified Code(s): M79.605 - Pain in left leg Condition: Good Instructions: Ankle Sprain Follow-Up: Radha Hines ARNP [Primary Care Provider] - Within 3 Days Comments: Recommend supportive care such as elevation, ice application, ibuprofen/Tylenol. Please follow-up with your primary care physician or orthopedic surgery next to 3 days. Return to ED sooner if experience worsening symptoms or have other concerns.
--- NOTE | 2018-10-21 09:18 | XRAY Report ---
Reason: pain in ankle and lateral, dorsal foot Procedure Date: 10/21/2018 Accession Number: [id number] / [id number] Procedure: XR - Foot 3 View LT CPT Code: FULL RESULT: EXAM: LEFT FOOT RADIOGRAPHY EXAM DATE: 10/21/2018 08:58 AM. CLINICAL HISTORY: Pain in ankle and lateral, dorsal foot. COMPARISON: None. TECHNIQUE: 3 views. FINDINGS: Bones: Normal. No fractures or bone lesions. Joints: Normal. No subluxations. Soft Tissues: Extensive soft tissue calcifications. No radiopaque foreign bodies or focal swelling. IMPRESSION: 1. No fracture. RADIA
--- NOTE | 2018-10-21 09:19 | XRAY Report ---
Reason: lateral malleoli pain Procedure Date: 10/21/2018 Accession Number: [id number] / [id number] Procedure: XR - Ankle 3 View LT CPT Code: FULL RESULT: EXAM: LEFT ANKLE RADIOGRAPHY EXAM DATE: 10/21/2018 08:57 AM. CLINICAL HISTORY: Lateral malleoli pain. COMPARISON: None. TECHNIQUE: 3 views. FINDINGS: Bones: Osteopenic patient. Well-corticated productive bony changes to the lateral malleolus. No acute displaced fracture. Joints: Normal. No effusion. No subluxations. The ankle mortise is normally aligned. Soft Tissues: Mild left ankle swelling. Extensive distal left leg soft tissue calcifications. IMPRESSION: 1. Apparent productive bony changes in the lateral malleolus. No acute displaced fracture. Patient is osteopenic. 2. Normal alignment. 3. Mild soft tissue swelling. RADIA
[2018-10-21 09:50] VITALS: BP 147/78
== END 2018-10-21 09:49 | disposition home or self-care (01) ==
LOC: ED 08:08
DX: M25.572 Pain in left ankle and joints of left foot (principal); S99.912A Unspecified injury of left ankle, initial encounter; W22.8XXA Striking against or struck by other objects, initial encounter; M85.872 Other specified disorders of bone density and structure, left ankle and foot; Z96.642 Presence of left artificial hip joint; F17.200 Nicotine dependence, unspecified, uncomplicated
CPT/HCPCS: 99282; 99283

== ENCOUNTER 2018-10-30 14:58 | Outpatient (CLI) | payer MEDICARE, MEDICAID | END 2018-10-30 14:59 | disposition EMS.NT | LOC: EMS 14:58 | PROVIDERS: ATTEND Surgery | DX: S61.412A Laceration without foreign body of left hand, initial encounter (principal); W25.XXXA Contact with sharp glass, initial encounter; Y92.009 Unspecified place in unspecified non-institutional (private) residence as the place of occurrence of the external cause ==

== ENCOUNTER 2019-05-11 11:58 | Outpatient (CLI) | payer MEDICARE, MEDICAID | END 2019-05-11 11:59 | disposition critical access hospital (66) | LOC: EMS 11:58 | PROVIDERS: ATTEND Surgery | DX: M79.605 Pain in left leg (principal); M79.89 Other specified soft tissue disorders | CPT/HCPCS: A0425; A0427 ==

== ENCOUNTER 2019-05-11 12:20 | Emergency (ER) | payer MEDICARE, MEDICAID ==
[2019-05-11] MEDS ORDERED: MORPHINE 2 MG/ML CARPUJECT IVP STA (13:18)
[2019-05-11] MEDS ORDERED: ONDANSETRON 4 MG/2 ML VIAL IVP STA (13:18)
--- NOTE | 2019-05-11 14:11 | XRAY Report ---
Reason: pain Procedure Date: 05/11/2019 Accession Number: [id number] / [id number] Procedure: XR - Tib/Fib LT CPT Code: Final Report FULL RESULT: EXAM: LEFT TIBIA/FIBULA RADIOGRAPHY EXAM DATE: 05/11/2019 01:39 PM. CLINICAL HISTORY: Pain. COMPARISON: FOOT 3 VIEW LT 10/21/2018 8:35 AM. TECHNIQUE: 2 views. FINDINGS: Bones: Normal. No fracture or bone lesion. Mild spurring distal anterior tibia. Remote fracture lateral malleolus. Joints: The visualized knee and ankle joints are normal. No effusions. Soft Tissues: Diffuse extensive left leg soft tissue calcification. Differential considerations include vascular calcification or phleboliths, dystrophic calcification from chronic venous stasis, tumoral calcinosis, dermatomyositis and scleroderma. IMPRESSION: 1. Negative for fracture or focal bony abnormality. 2. Extensive calcification left leg most severe distally likely secondary to dystrophic calcification from chronic venous stasis. RADIA
--- NOTE | 2019-05-11 15:48 | ED Physician Documentation ---
PD HPI LOWER EXT INJURY - Stated complaint Stated Complaint: FALL - Chief complaint Chief Complaint: Ext Problem - History obtained from History obtained from: Patient - History of Present Illness PD HPI LOW EXT INJURY LOCATION: Left, Lower leg Type of injury: Fall, Twist Where injury occurred: Home Timing - onset: How many days ago (3) Timing - duration: Days (3) Timing - details: Abrupt onset Pain level now: 10 Recently seen: Not recently seen - Additional information Additional information: 48-year-old woman who presents with complaints that she is wheelchair-bound and was moving her wheelchair at home when it got stuck between furniture and she fell out of it just kind of slid as she went out her left knee bent up underneath of her twisted and she felt a snap. She is already had issues with that knee that it "floats" because it was shattered. She also tells me that she does not have a hip ball in the socket because of prior femur fracture and several revisions that failed. She is not really weightbearing on that leg. Her first total hip replacement was in 2016. She is tried to tough it out at home with the pain but all she had was aspirin and she has been heating and icing it and the pain just getting so severe now that she is here for evaluation. It felt very warm to her so she was concerned there might be infection. She received 4 mg of morphine in route by ambulance but is still complaining of 10 out of 10 pain. She has not been ill with a sore throat stuffy nose coughing, shortness of breath. She has no numbness or tingling into the toes. 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 HEENT: Other Psych: Depression, Bipolar disorder Musculoskeletal: Osteoarthritis, Chronic back pain Derm: Psoriasis - Past Surgical History Past Surgical History: Yes General: Cholecystectomy, Other Ortho: Hip replacement, Other - Present Medications Home Medications: Ambulatory Orders Medication Instructions Recorded Confirmed Quetiapine Fumarate [Seroquel] 400 mg PO QPM 06/19/16 05/11/19 Albuterol Sulf [Ventolin Hfa 2 puffs INH Q4H PRN 02/08/18 05/11/19 Inhaler] Divalproex Sodium 250 mg PO BID 02/08/18 05/11/19 Trazodone HCl 300 mg PO QPM 02/08/18 05/11/19 Metaxalone [Skelaxin] 800 mg PO TID PRN #10 tablet 05/11/19 methocarbamoL [Robaxin] 500 mg PO Q6H #10 tablet 05/11/19 - Allergies Allergies/Adverse Reactions: Allergies Allergy/AdvReac Type Severity Reaction Status Date / Time No Known Drug Allergies Allergy Verified 05/11/19 12:29 - Social History Does the pt smoke?: Yes Smoking Status: Current every day smoker Does the pt drink ETOH?: No Does the pt have substance abuse?: No - Immunizations Immunizations are current?: Yes - POLST Patient has POLST: No PD ED PE NORMAL - Vitals Vital signs reviewed: Yes - General General: Alert and oriented X 3, No acute distress, Well developed/nourished - Respiratory Respiratory: No respiratory distress - Derm Derm: Normal color, Warm and dry, No rash - Extremities Extremities: Other (The left leg has a knee that appears to have a really high riding patella. The knee does not feel unstable but she has pain with palpation over the proximal pretibial area. There is no erythema or warmth. There are calcified varicose veins in the left lower leg but no edema. She has a palpable dorsalis pedis O pulse and she is able to wiggle her toes. Sensation is intact to light touch.) - Neuro Neuro: Alert and oriented X 3, No motor deficit, No sensory deficit, Normal s peech Results - Vitals Vitals: Vital Signs - 24 hr 05/11/19 05/11/19 12:23 14:28 Temperature 36.7 C Heart Rate 84 76 Respiratory 20 18 Rate Blood Pressure 117/96 H 126/106 H O2 Saturation 97 98 Oxygen O2 Source [] Room air O2 Source [] Room air O2 Source Room air - Rads (name of study) L tib/fib Radiology: See rad report (no fracture) PD MEDICAL DECISION MAKING - ED course Complexity details: reviewed results, d/w patient ED course: Patient was given 4 more milligrams of morphine IV and Zofran 4 mg IV. She said the pain was a little bit better. We discussed the results of the x-ray and the fact that she may need MRI scanning which would be done on an outpatient basis. She said that she is had a knee immobilizer in the past which is helped her when her knee is been bothering her. We will get her set up with 1 here in the emergency department. She is also out of her meloxicam and I will refill a prescription for that. I discussed with her I will not prescribe narcotics and she wondered if a muscle relaxer like Soma might be helpful but I do not prescribe Soma either. She has used Robaxin in the past and I will be happy to provide a prescription for a few doses of Robaxin. She needs to follow-up with her primary care provider for further pain management. Departure - Departure Disposition: 01 Home, Self Care Clinical Impression: Pain of lower extremity Qualifiers: Laterality: left Qualified Code(s): M79.605 - Pain in left leg Condition: Good Instructions: ED Sprain Knee Follow-Up: Radha Hines ARNP [Primary Care Provider] - Prescriptions: Metaxalone [Skelaxin] 800 mg PO TID PRN #10 tablet PRN Reason: Pain methocarbamoL [Robaxin] 500 mg PO Q6H #10 tablet Comments: Use the knee immobilizer if needed for comfort. Continue with your wheelchair use. Start the meloxicam daily. You have the Robaxin if needed for muscle relaxer. Follow-up with your primary care provider if you need further pain management. MRI may need to be considered if the knee continues to be painful.
[2019-05-11 16:20] VITALS: BP 126/78
--- NOTE | 2019-05-13 16:42 | ED Physician Documentation ---
ED Addendum - Addendum Addendum: 05/13/19 16:42 Call from pharmacist, neither the muscle relaxers are covered. Authorize changed to Flexeril 10 mg p.o. 3 times daily #10 as needed spasm. No refills.
== END 2019-05-11 16:21 | disposition home or self-care (01) ==
LOC: EDUNIT# → ED 12:20
DX: M79.605 Pain in left leg (principal); F17.200 Nicotine dependence, unspecified, uncomplicated; Z99.3 Dependence on wheelchair
CPT/HCPCS: 96374; 96375; 99284

== ENCOUNTER 2019-07-14 22:18 | Outpatient (CLI) | payer MEDICARE, MEDICAID | END 2019-07-14 23:59 | disposition short-term general hospital (02) | LOC: EMS 22:18 | PROVIDERS: ATTEND Surgery | DX: M79.652 Pain in left thigh (principal) | CPT/HCPCS: A0425; A0429 ==

== ENCOUNTER 2020-05-20 12:45 | Outpatient (CLI) | payer MEDICARE, MEDICAID | END 2020-05-20 12:46 | disposition critical access hospital (66) | LOC: EMS 12:45 | PROVIDERS: ATTEND Emergency Medicine | DX: M25.512 Pain in left shoulder (principal) | CPT/HCPCS: A0425; A0427 ==

== ENCOUNTER 2020-05-20 13:09 | Emergency (ER) | payer MEDICARE, MEDICAID ==
[2020-05-20] MEDS ORDERED: KETOROLAC 30 MG/ML VIAL IVP STA (13:13)
--- NOTE | 2020-05-20 13:16 | ED Physician Documentation ---
PD HPI UPPER EXT INJURY - Stated complaint Stated Complaint: LT SHOULDER PX - History obtained from History obtained from: Patient, EMS - Additonal information Additional information: 49-year-old woman has leg problems and is wheelchair-bound due to same. 3 days ago she was in her wheelchair cleaning the shower and bending over. She felt a pop in the shoulder and then fell, pain was not too bad until today. Today she was just sitting back and felt sequential pops in the left shoulder and more severe pain which is only modestly relieved by 150 mcg of fentanyl she received from EMS on the way here. No other injuries. 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 HEENT: Other Psych: Depression, Bipolar disorder Musculoskeletal: Osteoarthritis, Chronic back pain Derm: Psoriasis - Past Surgical History Past Surgical History: Yes General: Cholecystectomy, Other Ortho: Hip replacement, Other - Present Medications Home Medications: Ambulatory Orders Medication Instructions Recorded Confirmed Quetiapine Fumarate [Seroquel] 400 mg PO QPM 06/19/16 05/11/19 Albuterol Sulf [Ventolin Hfa 2 puffs INH Q4H PRN 02/08/18 05/11/19 Inhaler] Divalproex Sodium 250 mg PO BID 02/08/18 05/11/19 Trazodone HCl 300 mg PO QPM 02/08/18 05/11/19 Metaxalone [Skelaxin] 800 mg PO TID PRN #10 tablet 05/11/19 methocarbamoL [Robaxin] 500 mg PO Q6H #10 tablet 05/11/19 Oxycodone HCl/Acetaminophen 1 - 2 each PO Q6H PRN #30 tab 05/20/20 [Percocet 5-325 mg Tablet] - Allergies Allergies/Adverse Reactions: Allergies Allergy/AdvReac Type Severity Reaction Status Date / Time No Known Drug Allergies Allergy Verified 05/11/19 12:29 - Social History Does the pt smoke?: Yes Smoking Status: Current every day smoker Does the pt drink ETOH?: No Does the pt have substance abuse?: No - Immunizations Immunizations are current?: Yes - POLST Patient has POLST: No PD ED PE NORMAL - Vitals Vital signs reviewed: Yes - General General: Alert and oriented X 3, No acute distress - HEENT HEENT: PERRL, EOMI - Neck Neck: Supple, no meningeal sign, No bony TTP - Cardiac Cardiac: RRR, No murmur - Respiratory Respiratory: No respiratory distress, Clear bilaterally - Abdomen Abdomen: Non tender - Extremities Extremities: Other (Tender to the upper humerus and posterior glenohumeral joint without deformity. Mild numbness in her radial nerve distribution in the left hand with normal pulses.) - Neuro Neuro: Alert and oriented X 3, Normal speech Results - Vitals Vitals: Vital Signs - 24 hr 05/20/20 13:14 Temperature 37.1 C Heart Rate 105 H Respiratory 18 Rate Blood Pressure 158/101 H O2 Saturation 99 Oxygen O2 Source [With Activity] Room air O2 Source [Without Activity] Room air O2 Source Room air PD MEDICAL DECISION MAKING - ED course ED course: 49-year-old woman with chronic pain, she is wheelchair-bound due to a history of osteomyelitis of the left hip which is now absent. She has a history that seems most consistent with probably an incomplete fracture 3 days ago and now subsequently now a complete fracture of the upper humerus, spiral fracture with mild radial nerve palsy.49-year-old woman with spiral fracture of the upper humerus with mild radial nerve palsy on the right. The history was a little odd, but it does not appear pathological to my eye on x-ray. Case was discussed by phone with Dr. Ladd, our on-call orthopedist who recommends some Ari wrap and a sling and follow-up in the clinic. Given her pre-existing mobility issue is a social work consult was offered to assess for the need for in-home respite care which she declined. Departure - Departure Disposition: 01 Home, Self Care Clinical Impression: Left humeral fracture Qualifiers: Encounter type: initial encounter Humerus Location: shaft Fracture type: closed Fracture morphology: spiral Fracture alignment: displaced Qualified Code(s): S42.342A - Displaced spiral fracture of shaft of humerus, left arm, initial encounter for closed fracture Condition: Stable Record reviewed to determine appropriate education?: Yes Instructions: Humerus Fx Follow-Up: [facility] [Provider Group] Prescriptions: Oxycodone HCl/Acetaminophen [Percocet 5-325 mg Tablet] 1 - 2 each PO Q6H PRN #30 tab PRN Reason: pain Comments: Today I discussed her case with Dr. Ladd, the phone number for his clinic is on this form. Call the office on Friday to arrange for an appointment this coming week for recheck. Return for new or worsening symptoms in the meantime.
[2020-05-20 13:20] VITALS: BP 158/101
[2020-05-20] MEDS ORDERED: HYDROmorphone 1 MG/ML CARPUJECT IVP STA (13:41)
--- NOTE | 2020-05-20 13:46 | XRAY Report ---
PROCEDURE: Shoulder 2 View LT INDICATIONS: LEFT SHOULDER PAIN TECHNIQUE: 2 views of the shoulder were acquired. COMPARISON: 02/23/2016 FINDINGS: Bones: There is a left humerus proximal shaft fracture, with moderate displacement. The humeral head is low-lying within the glenoid fossa, yet there is no dislocation seen on the Y vie w. Age-appropriate degenerative changes are seen. The visualized ribs appear intact. No suspicious ly tic or blastic lesions are seen. Soft tissues: No suspicious soft tissue calcifications. The visualized lung demonstrates a normal a ppearance. IMPRESSION: Moderately displaced fracture of the left proximal humeral shaft. Reviewed by: Jono Vasquez MD on 05/20/2020 12:44 PM [facility] Approved by: Jono Vasquez MD on 05/20/2020 12:44 PM [facility] Station ID: [id number]
== END 2020-05-20 14:27 | disposition home or self-care (01) ==
LOC: EDUNIT# → EDBD → ED 13:09
DX: S42.342A Displaced spiral fracture of shaft of humerus, left arm, initial encounter for closed fracture (principal); W05.0XXA Fall from non-moving wheelchair, initial encounter; Y93.E5 Activity, floor mopping and cleaning; Y92.002 Bathroom of unspecified non-institutional (private) residence as the place of occurrence of the external cause; F17.200 Nicotine dependence, unspecified, uncomplicated
CPT/HCPCS: 73030; 96374; 96375; 99283; 99285; J1170

== ENCOUNTER 2020-05-24 13:57 | Outpatient (CLI) | payer MEDICARE, MEDICAID | END 2020-05-24 13:58 | disposition EMS.NT | LOC: EMS 13:57 | DX: Z03.89 Encounter for observation for other suspected diseases and conditions ruled out (principal) ==

== ENCOUNTER 2020-06-21 12:07 | Outpatient (CLI) | payer MEDICARE, MEDICAID ==
--- NOTE | 2020-06-21 12:58 | XRAY Report ---
PROCEDURE: Humerus LT INDICATIONS: LEFT SHOULDER PX TECHNIQUE: 2 views of the humerus were acquired. COMPARISON: None FINDINGS: Bones: There is a displaced proximal humeral shaft fracture with approximately 3.1 cm overlap of prox imal distal fragments. There is no gross dislocation at the shoulder. No suspicious bony lesions. Soft tissues: No suspicious soft tissue calcifications. IMPRESSION: Displaced proximal humeral diaphyseal fracture. Reviewed by: Kisha Littlejohn MD on 06/21/2020 12:57 PM PDT Approved by: Kisha Littlejohn MD on 06/21/2020 12:57 PM PDT Station ID: [id number]
== END 2020-06-21 12:08 | disposition home or self-care (01) ==
LOC: DI 12:07
PROVIDERS: ATTEND Naturopath
DX: S42.302A Unspecified fracture of shaft of humerus, left arm, initial encounter for closed fracture (principal)

== ENCOUNTER 2020-10-14 14:03 | Outpatient (CLI) | payer MEDICARE, MEDICAID | END 2020-10-14 14:04 | disposition critical access hospital (66) | LOC: EMS 14:03 | DX: R07.81 Pleurodynia (principal) | CPT/HCPCS: A0425; A0429 ==

== ENCOUNTER 2020-10-14 14:24 | Emergency (ER) | payer MEDICARE, MEDICAID ==
[2020-10-14] MEDS ORDERED: oxyCODONE 5 MG TABLET PO STA (14:42)
--- NOTE | 2020-10-14 15:19 | CT Report ---
PROCEDURE: CHEST WO INDICATIONS: Left-sided rib pain status post fall TECHNIQUE: Noncontrast images were acquired from the pulmonary apices to the posterior costophrenic angles. Mul tiplanar MIP reformats were then acquired. For radiation dose reduction, the following was used: au tomated exposure control, adjustment of mA and/or kV according to patient size. COMPARISON: None FINDINGS: Image quality: Excellent. Lungs and pleura: No acute air space opacities. No pleural effusions or pneumothorax. Central and peripheral airways are patent and normal in caliber. Minimal right basilar atelectasis noted. There is dense coronary artery vascular calcification. Mediastinum: Heart size is normal. No pericardial effusion. No mediastinal adenopathy by size crit eria. Thoracic aorta and central pulmonary arteries are normal in size. Esophagus is normal in aicha mary. No hiatal hernia. Bones and chest wall: Left-sided rib fractures include the left fourth, fifth, sixth, seventh and ei ghth anterolateral ribs. Fractures are nondisplaced, and there is no evidence of pneumothorax or pleu ral effusion. Old healed right clavicular fracture noted. Abdomen: Visualized upper abdominal solid organs and bowel loops appear normal in the absence of con trast. Cholecystectomy noted. IMPRESSION: Nondisplaced left fourth through eighth anterolateral rib fractures without pneumothorax or pulmonary contusion. Old healed right clavicular fracture. Reviewed by: Jai Heart MD on 10/14/2020 2:18 PM [facility] Approved by: Jai Heart MD on 10/14/2020 2:18 PM [facility] Station ID: [id number]
--- NOTE | 2020-10-14 15:51 | ED Physician Documentation ---
History of Present Illness - Stated complaint Stated Complaint: L RIB PX - Chief complaint Chief Complaint: Trauma Ch/Bk - History obtained from History obtained from: Patient - Additonal information Additional information: 50-year-old woman wheelchair-bound at baseline, presents with fall 2 days ago from her wheelchair onto her left side with sudden onset pain to the rib cage and hip. Patient decided to come in today because she had persistent pain that has been worsening, localized to the left rib cage, nonradiating, worse with deep breathing and cough, aching and intermittently sharp, associated with small amount of ecchymosis. Also with left eye ecchymosis. Denies head trauma. Does have an abrasion to her right elbow that is healing and has normal range of motion. Review of Systems Skin: reports: Abrasion (s), Other (Ecchymosis) Musculoskeletal: reports: Other (Rib pain). 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: Other Psych: Depression, Bipolar disorder Musculoskeletal: Osteoarthritis, Chronic back pain Derm: Psoriasis - Past Surgical History Past Surgical History: Yes General: Cholecystectomy, Other Ortho: Hip replacement, Other - Present Medications Home Medications: Ambulatory Orders Medication Instructions Recorded Confirmed Quetiapine Fumarate [Seroquel] 400 mg PO QPM 06/19/16 05/11/19 Albuterol Sulf [Ventolin Hfa 2 puffs INH Q4H PRN 02/08/18 05/11/19 Inhaler] Divalproex Sodium 250 mg PO BID 02/08/18 05/11/19 Trazodone HCl 300 mg PO QPM 02/08/18 05/11/19 Metaxalone [Skelaxin] 800 mg PO TID PRN #10 tablet 05/11/19 methocarbamoL [Robaxin] 500 mg PO Q6H #10 tablet 05/11/19 Oxycodone HCl/Acetaminophen 1 - 2 each PO Q6H PRN #30 tab 05/20/20 [Percocet 5-325 mg Tablet] Oxycodone HCl/Acetaminophen 1 each PO Q4H PRN #15 tablet 10/14/20 [Percocet 10-325 mg Tablet] - Allergies Allergies/Adverse Reactions: Allergies Allergy/AdvReac Type Severity Reaction Status Date / Time No Known Drug Allergies Allergy Verified 10/14/20 14:34 - Social History Does the pt smoke?: Yes Smoking Status: Current every day smoker Does the pt drink ETOH?: No Does the pt have substance abuse?: No - Immunizations Immunizations are current?: Yes - POLST Patient has POLST: No PD ED PE NORMAL - Vitals Vital signs reviewed: Yes - General General: Alert and oriented X 3, No acute distress, Well developed/nourished - HEENT HEENT: Atraumatic, PERRL, EOMI - Neck Neck: Supple, no meningeal sign, No bony TTP - Cardiac Cardiac: RRR - Respiratory Respiratory: No respiratory distress, Clear bilaterally - Abdomen Abdomen: Non tender, Non distended - Back Back: No spinal TTP, Other (Left lateral rib cell tender helper to palpation) - Derm Derm: Normal color, Other (1 cm ecchymosis to the left anterior lateral rib cage. Large ecchymosis to left hip) - Neuro Neuro: Alert and oriented X 3 - Psych Psych: Normal mood, Normal affect Results - Vitals Vitals: Vital Signs - 24 hr 10/14/20 14:31 Temperature 36.6 C Heart Rate 96 Respiratory 16 Rate Blood Pressure 108/85 H O2 Saturation 100 Oxygen O2 Source [With Activity] Room air O2 Source [Without Activity] Room air O2 Source Room air PD MEDICAL DECISION MAKING - ED course ED course: 50-year-old woman presents with Subacute fracture to fourth through eighth left anterolateral ribs. She has a robust cough, is taking full deep breaths, and pain is well controlled. We will have physical therapy provide incentive spirometer. Strict return precautions given. Pain control provided. Departure - Departure Disposition: 01 Home, Self Care Clinical Impression: Ribs, multiple fractures, Fall from wheelchair Condition: Good Instructions: ED Fx Rib Follow-Up: Vincent Campbell MD [Provider Admit Priv/Credential] - Prescriptions: Oxycodone HCl/Acetaminophen [Percocet 10-325 mg Tablet] 1 each PO Q4H PRN #15 tablet PRN Reason: Pain Comments: You were seen in the emergency department for rib fractures of your left fourth through eighth ribs. Make sure that you use your incentive spirometer as recommended by our physical therapist. Return to the emergency department if you have any new or worsening symptoms or other concerns. Follow-up with your primary doctor and with surgery clinic.
[2020-10-14 16:12] VITALS: BP 131/91
== END 2020-10-14 16:12 | disposition home or self-care (01) ==
LOC: EDUNIT# → SUPCPDRO 14:24 → ED 14:24
DX: S22.42XA Multiple fractures of ribs, left side, initial encounter for closed fracture (principal); S70.02XA Contusion of left hip, initial encounter; S00.12XA Contusion of left eyelid and periocular area, initial encounter; S50.311A Abrasion of right elbow, initial encounter; W05.0XXA Fall from non-moving wheelchair, initial encounter; F17.200 Nicotine dependence, unspecified, uncomplicated
CPT/HCPCS: 71250; 99283; 99284; A9270

== ENCOUNTER 2021-05-28 16:48 | Outpatient (CLI) | payer MEDICARE, MEDICAID | END 2021-05-28 16:49 | disposition EMS.NT | LOC: EMS 16:48 | DX: Z03.89 Encounter for observation for other suspected diseases and conditions ruled out (principal) ==

== ENCOUNTER 2021-10-17 20:36 | Outpatient (CLI) | payer MEDICARE, MEDICAID | END 2021-10-17 20:37 | disposition left against medical advice (07) | LOC: EMS 20:36 | DX: R51.9 Headache, unspecified (principal); Y04.2XXA Assault by strike against or bumped into by another person, initial encounter ==

== ENCOUNTER 2022-01-19 04:21 | Outpatient (CLI) | payer MEDICARE, MEDICAID | END 2022-01-19 04:22 | disposition critical access hospital (66) | LOC: EMS 04:21 | DX: M54.50 Low back pain, unspecified (principal); Z99.3 Dependence on wheelchair | CPT/HCPCS: A0425; A0427 ==

== ENCOUNTER 2022-01-19 04:43 | Emergency (ER) | payer MEDICARE, MEDICAID ==
--- NOTE | 2022-01-19 04:56 | ED Physician Documentation ---
PD HPI BACK PAIN - Stated complaint Stated Complaint: BACK PX - Chief complaint Chief Complaint: Back Pain - History obtained from History obtained from: Patient - History of Present Illness Timing - onset: How many weeks ago (2) Timing - details: Gradual onset, Still present (Significantly increased in the last day or so. Noted significant pain and spasm with transferring from wheelchair to toilet earlier.), Waxing and waning Location: Lower (pain at thoracolumbar area with radiation across back.), Right, Left Quality: Pain, Spasm, Sharp Associated symptoms: No: Fever, Weakness, Numbness, Incontinent of urine Improves with: Rest Worsened by: Movement, Twisting, Other (she is wheelchair bound due to prior hip removal (osteomyelitis) few years ago. No recent fall/injury.) Contributing factors: Twisting (she does twist and self transfer from wheelchair at home.). 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 HEENT: Other Psych: Depression, Bipolar disorder Musculoskeletal: Osteoarthritis, Chronic back pain Derm: Psoriasis - Past Surgical History Past Surgical History: Yes General: Cholecystectomy, Other Ortho: Hip replacement, Other - Present Medications Home Medications: Ambulatory Orders Medication Instructions Recorded Confirmed Quetiapine Fumarate [Seroquel] 400 mg PO QPM 06/19/16 05/11/19 Albuterol Sulf [Ventolin Hfa 2 puffs INH Q4H PRN 02/08/18 05/11/19 Inhaler] Divalproex Sodium 250 mg PO BID 02/08/18 05/11/19 Trazodone HCl 300 mg PO QPM 02/08/18 05/11/19 Metaxalone [Skelaxin] 800 mg PO TID PRN #10 tablet 05/11/19 methocarbamoL [Robaxin] 500 mg PO Q6H #10 tablet 05/11/19 Oxycodone HCl/Acetaminophen 1 - 2 each PO Q6H PRN #30 tab 05/20/20 [Percocet 5-325 mg Tablet] Oxycodone HCl/Acetaminophen 1 each PO Q4H PRN #15 tablet 10/14/20 [Percocet 10-325 mg Tablet] Acetaminophen [Acetaminophen Extra 500 mg PO QID PRN #50 tablet 01/19/22 Strength] Calcitonin [Fortical] 1 sprays SAW DAILY #1 each 01/19/22 Meloxicam [Mobic] 7.5 mg PO BID 10 Days #20 tablet 01/19/22 diazePAM [Valium] 5 mg PO TID PRN #20 tablet 01/19/22 oxyCODONE [Roxicodone] 5 mg PO Q6H PRN #20 tablet 01/19/22 - Allergies Allergies/Adverse Reactions: Allergies Allergy/AdvReac Type Severity Reaction Status Date / Time No Known Drug Allergies Allergy Verified 01/19/22 04:51 - Social History Does the pt smoke?: Yes Smoking Status: Current every day smoker Does the pt drink ETOH?: No Does the pt have substance abuse?: No - Immunizations Immunizations are current?: Yes - POLST Patient has POLST: No PD ED PE NORMAL - Vitals Vital signs reviewed: Yes - General General: Alert and oriented X 3, Well developed/nourished, Other (Appears markedly uncomfortable with flexion and torsional movement of the back. She is able to move her back and sit forward and move her shoulders.) - Neck Neck: Supple, no meningeal sign, No bony TTP, No adenopathy - Cardiac Cardiac: RRR, No murmur - Respiratory Respiratory: Clear bilaterally - Abdomen Abdomen: Normal bowel sounds, Soft, Non tender - Rectal Rectal: Deferred - Back Back: No CVA TTP, Other (tender in thoracolumbar area of the back midline and some in muscles laterally to each side. No skin sensitivity. ) - Derm Derm: Normal color, Warm and dry, No rash - Extremities Extremities: Other (less ROM of the left hip due to prior surgery and prosthesis. ) - Neuro Neuro: Alert and oriented X 3, No motor deficit, No sensory deficit, Normal speech Results - Vitals Vitals: Vital Signs - 24 hr 01/19/22 01/19/22 04:45 06:00 Temperature 36 C L Heart Rate 64 86 Respiratory 20 14 Rate Blood Pressure 103/83 H 98/67 O2 Saturation 100 97 Oxygen O2 Source [With Activity] Room air O2 Source [Without Activity] Room air O2 Source Room air - Labs Labs: Laboratory Tests 01/19/22 01/19/22 01/19/22 05:07 05:07 05:07 WBC 6.8 RBC 4.08 L Hgb 11.1 L Hct 37.2 MCV 91.2 MCH 27.2 MCHC 29.8 L RDW 15.1 H Plt Count 309 MPV 8.6 Neut # (Auto) 3.6 Lymph # (Auto) 2.3 [place] # (Auto) 0.6 Eos # (Auto) 0.2 Baso # (Auto) 0.0 Absolute Nucleated RBC 0.00 Nucleated RBC % 0.0 ESR 63 H Sodium 137 Potassium 3.9 Chloride 101 Carbon Dioxide 28 Anion Gap 8.0 BUN 15 Creatinine 1.1 H Estimated GFR (MDRD) 52 L Glucose 109 H Calcium 9.5 Total Bilirubin 0.2 AST 17 ALT 11 Alkaline Phosphatase 83 Total Protein 7.4 Albumin 3.1 L Globulin 4.3 H Albumin/Globulin Ratio 0.7 L Lipase 34 - Rads (name of study) abd/pelvic CT Radiology: Prelim report reviewed, EMP read contemporaneously (no apparent organ injury/abnormal. No ureteral stones. T12 compression fracture new compared to imaging 10/14/20.), See rad report PD MEDICAL DECISION MAKING - ED course Complexity details: reviewed old records (minimal opioid Rx (10 tabs) on [facility]. Usual Rx of Tizanidine. ), reviewed results, considered differential (Initial pain onset 2 weeks ago but increased significantly with movements last night. Will get imaging to evaluate for spinous process as well as kidney stones etc.), d/w patient Departure - Departure Clinical Impression: Acute back pain Qualifiers: Back pain location: low back pain Back pain laterality: bilateral Sciatica presence: without sciatica Qualified Code(s): M54.50 - Low back pain, unspecified Compression fracture of thoracic vertebra Qualifiers: Encounter type: initial encounter Thoracic vertebra fracture level: T12 Qualified Code(s): S22.080A - Wedge compression fracture of T11-T12 vertebra, initial encounter for closed fracture Condition: Stable Record reviewed to determine appropriate education?: Yes Instructions: ED Fx Comp Vertebral Prescriptions: Acetaminophen [Acetaminophen Extra Strength] 500 mg PO QID PRN #50 tablet PRN Reason: Pain Calcitonin [Fortical] 1 sprays SAW DAILY #1 each Meloxicam [Mobic] 7.5 mg PO BID 10 Days #20 tablet oxyCODONE [Roxicodone] 5 mg PO Q6H PRN #20 tablet PRN Reason: Pain diazePAM [Valium] 5 mg PO TID PRN #20 tablet PRN Reason: Spasms Comments: Your CT scan shows a new compression fracture compared to most recent imaging of that area from October 14, 2020. I presume it is a acute new finding as it is located in the area where you are hurting. Activity as tolerated. You will have pain with motion and movement. We will try to decrease your symptoms with anti-inflammatory as well as a different muscle relaxant. Also add Tylenol 4 times daily for the next 10 to 14 days. To that add oxycodone every 6 hours if needed for worse pain. Also I prescribed calcitonin nasal spray which is a hormone that helps try to heal the bones faster to reduce the time that it hurts. Typically these take about 4 to 6 weeks for healing but the worst pain is in the first couple of weeks. I transmitted your prescriptions to [facility] in [place]. I am prescribing a short course of narcotic pain medication for you. These are potentially dangerous and addictive medications that should be used carefully. These medications may constipate you. Take an [id number] stool softener such as docusate twice daily with plenty of water while taking these medications. If you go 24 hours without a bowel movement, take [id number] MiraLAX, per package instructions. Do not drink or drive while taking these medications. If you received narcotic or sedating medications while in the emergency department do not drive for 24 hours. Store this medication in a safe, secure place and out of reach of children. It is a violation of federal law to give or sell this medication to another person or to use in a manner other than prescribed. The ED will not refill narcotic prescriptions, including prescriptions lost or s tolen. You can dispose of unwanted medications at the [facility]'s office or at several pharmacies such as [facility].
[2022-01-19] MEDS ORDERED: HYDROmorphone 1 MG/ML CARPUJECT IVP STA ×3 (04:57→09:47)
[2022-01-19] MEDS ORDERED: KETOROLAC 15 MG/ML VIAL IVP STA (04:57)
[2022-01-19] MEDS ORDERED: diazePAM INJ 5 MG/ML SYRINGE IVP STA (04:59)
[2022-01-19 05:11] LABS: BASOPHILS % (AUTO) 0.4 %; EOSINOPHILS # (AUTO) 0.2 10^3/uL (0.0-0.7); EOSINOPHILS % (AUTO) 2.9 %; HCT - HEMATOCRIT 37.2 % (37.0-47.0); HGB - HEMOGLOBIN 11.1 g/dL (12.0-16.0); LYMPHOCYTES # (AUTO) 2.3 10^3/uL (1.5-3.5); LYMPHOCYTES % (AUTO) 34.4 %; MEAN CORPUSCULAR HEMOGLOBIN 27.2 pg (27.0-31.0); MEAN CORPUSCULAR HGB CONC 29.8 g/dL (32.0-36.0); MEAN CORPUSCULAR VOLUME 91.2 fL (81.0-99.0); MEAN PLATELET VOLUME 8.6 fL (7.9-10.8); MONOCYTES # (AUTO) 0.6 10^3/uL (0.0-1.0); MONOCYTES % (AUTO) 8.3 %; NEUTROPHILS # (AUTO) 3.6 10^3/uL (1.5-6.6); NEUTROPHILS % (AUTO) 53.4 %; PLT - PLATELET COUNT 309 10^3/uL (130-450); RED BLOOD COUNT 4.08 10^6/uL (4.20-5.40); RED CELL DISTRIBUTION WIDTH 15.1 % (12.0-15.0); WHITE BLOOD COUNT 6.8 x10^3/uL (4.8-10.8)
[2022-01-19 05:25] LABS: ALBUMIN 3.1 g/dL (3.2-5.5); ALBUMIN/GLOBULIN RATIO 0.7 (1.0-2.2); BILIRUBIN,TOTAL 0.2 mg/dL (0.2-1.0); CALCIUM 9.5 mg/dL (8.5-10.3); CREATININE 1.1 mg/dL (0.4-1.0); POTASSIUM 3.9 mmol/L (3.5-5.0); TOTAL PROTEIN 7.4 g/dL (6.7-8.2)
[2022-01-19] MEDS ORDERED: iohexoL-300 100 ML VIAL ONE (05:33)
[2022-01-19] MEDS ORDERED: iohexoL-300 100 ML VIAL IVP ONE (06:10)
--- NOTE | 2022-01-19 08:21 | CT Report ---
PROCEDURE: ABDOMEN/PELVIS W INDICATIONS: thoracolumbar pain abrupt; more to right. CONTRAST: 100 ml omni 300 TECHNIQUE: After the administration of IV contrast, 5 mm thick sections acquired from the diaphragms to the symp hysis. 5 mm thick coronal and sagittal reformats were acquired. For radiation dose reduction, the f ollowing was used: automated exposure control, adjustment of mA and/or kV according to patient size. COMPARISON: 02/08/2018, chest CT 10/14/2020 FINDINGS: Image quality: Excellent. ABDOMEN: Lung bases: Lung bases are clear. Heart size is normal. Solid organs: The liver is normal size and mildly diffusely hypodense. The gallbladder is surgically absent. The biliary system is appropriate post cholecystectomy. No visible ductal calcifications. Pa ncreas spleen appear normal. There is a 1 cm low-density nodule in the body of the right adrenal glan d, 1 cm ill-defined lesion in the lateral limb of the left, and a coarse calcification in the medial limb of the left adrenal gland. Renal cortices are lobulated with what appears to be several areas of parenchymal scarring/cortical v olume loss. No wedge-shaped area of the midpole the right kidney demonstrates poor cortical medullary differentiation and ill-defined hypodensity. There is a cyst arising from the upper pole. There is m ild right perinephric inflammation. No hydronephrosis or nephrolithiasis. The left kidney demonstrate s nonobstructing lower pole calculus measuring 4 mm and also several small areas of cortical hypoenha ncement/volume loss. No hydronephrosis. Trace perinephric inflammation. No hydroureter on either side . The distal ureters are obscured by artifact from right hip or thigh plasty Peritoneum and bowel: Stomach and bowel loops demonstrate normal wall thickness and caliber. No free fluid or air. Nodes and vessels: No retroperitoneal or mesenteric adenopathy by size criteria. Shotty retroperiton eal lymph nodes are present. Aorta and inferior vena cava are normal in size. Mild atherosclerotic c alcification. Miscellaneous: No ventral hernias. PELVIS: Genitourinary: Urinary bladder is partially obscured and mainly decompressed. The uterus is present, incompletely seen. Miscellaneous: No inguinal hernias or adenopathy. Bones: There are changes of right hip arthroplasty and chronic changes of a remote left hip fracture, excision of the left femoral head and neck, and proximal migration of the left proximal femur. [place] us structures are diffusely demineralized. There is a compression fracture of T12 without retropulsio n of fracture fragments. This is new since the prior study. IMPRESSION: 1. Since the prior study there has been bilateral renal scarring and areas of hypoenhancement. Acute on chronic pyelonephritis may be present. Clinical correlation is recommended. There is no evidence o f obstructive uropathy. 2. There is a nonobstructing calculus in the left lower pole. 3. T12 compression fracture without retropulsion of fracture fragments is new compared to chest CT . This is likely osteoporotic/degenerative. Correlate with point tenderness to determine acuit y. 4. Mild hepatic steatosis. 5. Stable bilateral adrenal adenomas. Reviewed by: Magalys Perea MD on 01/19/2022 7:20 AM REN Approved by: Magalys Perea MD on 01/19/2022 7:20 AM REN Station ID: [id number]
[2022-01-19 10:09] VITALS: BP 115/75
== END 2022-01-19 10:09 | disposition home or self-care (01) ==
LOC: ED 04:43
DX: S22.080A Wedge compression fracture of T11-T12 vertebra, initial encounter for closed fracture (principal); M54.50 Low back pain, unspecified; X50.1XXA Overexertion from prolonged static or awkward postures, initial encounter; Y93.89 Activity, other specified; Z99.3 Dependence on wheelchair; Z96.642 Presence of left artificial hip joint; F17.200 Nicotine dependence, unspecified, uncomplicated
CPT/HCPCS: 36415; 74177; 80053; 83690; 85025; 85651; 96374; 96375; 96376; 99284; J1170; Q9967

== ENCOUNTER 2022-01-19 10:08 | Outpatient (CLI) | payer MEDICARE, MEDICAID | END 2022-01-19 10:09 | disposition home or self-care (01) | LOC: EMS 10:08 | PROVIDERS: ATTEND Emergency Medicine | DX: M48.54XA Collapsed vertebra, not elsewhere classified, thoracic region, initial encounter for fracture (principal); Z99.3 Dependence on wheelchair | CPT/HCPCS: A0425; A0428 ==

== ENCOUNTER 2022-01-24 10:06 | Outpatient (CLI) | payer MEDICARE, MEDICAID | END 2022-01-24 10:07 | disposition critical access hospital (66) | LOC: EMS 10:06 | DX: S32.009A Unspecified fracture of unspecified lumbar vertebra, initial encounter for closed fracture (principal); X50.0XXA Overexertion from strenuous movement or load, initial encounter | CPT/HCPCS: A0425; A0429 ==

== ENCOUNTER 2022-01-24 10:22 | Emergency (ER) | payer MEDICARE, MEDICAID ==
[2022-01-24 10:28] VITALS: BP 135/92
[2022-01-24] MEDS ORDERED: oxyCODONE 5 MG TABLET PO STA (10:36)
[2022-01-24] MEDS ORDERED: LIDOCAINE PATCH 5% TOP STA (10:36)
[2022-01-24] MEDS ORDERED: ACETAMINOPHEN 325 MG TABLET PO STA (10:37)
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
== END 2022-01-24 12:30 | disposition home or self-care (01) ==
LOC: EDUNIT# → ED 10:22
DX: S22.080A Wedge compression fracture of T11-T12 vertebra, initial encounter for closed fracture (principal); X58.XXXA Exposure to other specified factors, initial encounter; F17.200 Nicotine dependence, unspecified, uncomplicated
CPT/HCPCS: 99282; 99283; A9270

== ENCOUNTER 2022-01-24 12:12 | Outpatient (CLI) | payer MEDICARE, MEDICAID | END 2022-01-24 12:13 | disposition home or self-care (01) | LOC: EMS 12:12 | PROVIDERS: ATTEND Emergency Medicine | DX: M54.9 Dorsalgia, unspecified (principal) | CPT/HCPCS: A0425; A0428 ==

== ENCOUNTER 2023-08-08 16:04 | Outpatient (CLI) | payer MEDICAID, MEDICARE | END 2023-08-08 23:59 | disposition critical access hospital (66) | LOC: EMS 16:04 | DX: T40.411A Poisoning by fentanyl or fentanyl analogs, accidental (unintentional), initial encounter (principal); I46.9 Cardiac arrest, cause unspecified | CPT/HCPCS: A0425; A0429 ==

== ENCOUNTER 2023-08-08 16:31 | Emergency (ER) | payer MEDICAID, MEDICARE ==
--- NOTE | 2023-08-08 16:50 | ED Physician Documentation ---
History of Present Illness - Stated complaint Stated Complaint: OVERDOSE - Additonal information Additional information: 53-year-old female with history of asthma, COPD, chronic constipation, bipolar disorder, depression, chronic back pain presents emergency department via EMS after fentanyl overdose. Patient is with 3 other friends she says she took 1 hit of unknown substance and all 4 friends close consciousness and overdosed. All 4 friends required Narcan. Patient says that she does not normally use fentanyl she thought she was taking a hit methamphetamine. She was Narcan once on the field and has been having a hard time staying awake despite the Narcan. She is arousable. 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 : None HEENT: Other Psych: Depression, Bipolar disorder Musculoskeletal: Osteoarthritis, Chronic back pain Derm: Psoriasis - Past Surgical History Past Surgical History: Yes General: Cholecystectomy, Other Ortho: Hip replacement, Other - Present Medications Home Medications: Ambulatory Orders Medication Instructions Recorded Confirmed Quetiapine Fumarate [Seroquel] 300 mg PO QPM 06/19/16 08/08/23 Albuterol Sulf [Ventolin Hfa 2 puffs INH Q4H PRN 02/08/18 08/08/23 Inhaler] Divalproex Sodium 250 mg PO BID 02/08/18 08/08/23 Trazodone HCl 300 mg PO QPM 02/08/18 08/08/23 Acetaminophen [Acetaminophen Extra 500 mg PO QID PRN #50 tablet 01/19/22 08/08/23 Strength] Calcitonin [Fortical] 1 sprays SAW DAILY #1 each 01/19/22 08/08/23 Calcitonin [Fortical] 1 sprays SAW DAILY #1 ea 01/24/22 08/08/23 - Allergies Allergies/Adverse Reactions: Allergies Allergy/AdvReac Type Severity Reaction Status Date / Time No Known Drug Allergies Allergy Verified 08/08/23 16:51 - Social History Does the pt smoke?: Yes Smoking Status: Current every day smoker Does the pt drink ETOH?: No Does the pt have substance abuse?: No - Immunizations Immunizations are current?: Yes - POLST Patient has POLST: No PD ED PE NORMAL - Vitals Vital signs reviewed: Yes - General General: Alert and oriented X 3, No acute distress, Well developed/nourished - HEENT HEENT: Atraumatic, PERRL - Neck Neck: Supple, no meningeal sign, No bony TTP - Cardiac Cardiac: RRR, No murmur - Respiratory Respiratory: Other (diminished breath sounds) - Back Back: No CVA TTP, No spinal TTP - Derm Derm: Normal color, No rash PD ED PE EXPANDED - Neuro Neuro: Lethargic, Normal speech. No: Confused, Disoriented, Unresponsive - GCS Eye Opening: Spontaneous Motor: Obeys Commands Verbal: Oriented Total: 15 - Psych Psych: Intoxicated / AOB, Withdrawn Results - Vitals Vitals: Vital Signs - 24 hr 08/08/23 08/08/23 08/08/23 16:38 17:54 19:00 Temperature 36.6 C 36.2 C L Heart Rate 102 H 86 79 Respiratory 20 12 13 Rate Blood Pressure 114/85 H 115/76 108/71 O2 Saturation 90 L 99 93 If not protocol 4 2 : Oxygen Flow, liters/minute 08/08/23 08/08/23 08/08/23 21:00 22:25 23:00 Temperature Heart Rate 78 81 78 Respiratory 16 18 16 Rate Blood Pressure 103/68 107/70 O2 Saturation 93 91 L If not protocol 1 0.5 0.5 : Oxygen Flow, liters/minute 08/09/23 08/09/23 08/09/23 01:00 03:00 06:20 Temperature Heart Rate 84 78 70 Respiratory 16 19 18 Rate Blood Pressure 119/77 110/76 119/89 H O2 Saturation 93 93 89 L If not protocol 0.5 0.5 : Oxygen Flow, liters/minute Oxygen O2 Source [With Activity] Room air O2 Source [Without Activity] Room air O2 Source Room air Oxygen Flow Rate 2 - Rads (name of study) Chest x-ray Relevant Findings:: Final report received, EMP independent interpretation of test, Other (No acute cardiopulmonary Abnormalities) PD Medical Decision Making - ED course ED course: 53-year-old female presents emergency department for accidental fentanyl overdose. Patient received 1 dose of Narcan in the field but we had a hard time waking her up since she has been here. She is arousable but she is unable to stay awake for prolonged period of time. She does report that she does have COPD and uses inhalers at home but is normally on room air. Since she has been here on room air while sleeping patient's oxygen has dropped to 83 to 82% as soon as she wakes up pops back up to 91% but patient is having a hard time staying awake. We went ahead and did a chest x-ray just to make sure there is no other acute abnormalities or findings and there is no acute cardiopulmonary abnormalities visualized on chest x-ray. Patient says that she does not normally use fentanyl she thought she was taking head of methamphetamine and was surprised to have this kind of reaction. Patient will need to board here overnight until she is able to metabolize whenever she smoked to maintain her airway better. Report given to Dr. Raymundo who will further monitor the patient while she is here and hopefully discharge in the morning after patient is more awake and alert Patient denies any suicidal homicidal ideation she was offered a social work consult for withdrawal of drugs and for rehab but patient declined. Departure - Departure Disposition: 01 Home, Self Care Clinical Impression: Hypoxia Accidental fentanyl overdose Qualifiers: Encounter type: initial encounter Qualified Code(s): T40.411A - Poisoning by fentanyl or fentanyl analogs, accidental (unintentional), initial encounter Condition: Stable Instructions: ED Overdose Accidental Comments: You were seen in the emergency department for accidental overdose. Make sure you get narcan and carry it with you since it can be life saving. If you want help treating your addiction the following is a great resource: [facility] [address] [place] [id number] 6.6 vt Please follow-up with your primary care provider and return to the emergency department if you have other concerns. Forms: PCP List Discharge Date/Time: 08/09/23 07:06
[2023-08-08] MEDS: IPRATROPIUM/ALBUTEROL 3 ML NEB INH STA (22:25)
[2023-08-08] MEDS: ACETAMINOPHEN 325 MG TABLET PO STA (22:43)
--- NOTE | 2023-08-08 23:02 | XRAY Report ---
PROCEDURE: Chest 1V INDICATIONS: hypoxia TECHNIQUE: One view of the chest was acquired. COMPARISON: 10/14/2020 FINDINGS: Surgical changes and devices: None. Lungs and pleura: No pleural effusions or pneumothorax. Lungs are clear. Mediastinum: Mediastinal contours appear normal. Heart size is normal. Bones and chest wall: No suspicious bony lesions. Overlying soft tissues appear unremarkable. IMPRESSION: No acute cardiopulmonary process. Reviewed by: Baljit Jimenez MD on 08/08/2023 11:01 PM PDT Approved by: Baljit Jimenez MD on 08/08/2023 11:01 PM PDT Station ID: [id number]
--- NOTE | 2023-08-08 23:20 | ED Physician Documentation ---
ED Addendum - Addendum Addendum: 08/08/23 23:19 Patient endorsed to me by [employer] DEAN Jed to monitor overnight and dc in am pending sobriety. relative coming to order picker/assembler (brother). 08/09/23 06:12 Patient in NAD, no complaints, sat is 98% RA. Counseling provided and return precautions given. Impression 1. fentanyl overdose disposition home condition stable
[2023-08-09 06:36] VITALS: BP 119/89; O2SAT 89
[2023-08-09] MEDS: ACETAMINOPHEN 325 MG TABLET PO STA (07:01)
== END 2023-08-09 07:06 | disposition home or self-care (01) ==
LOC: EDUNIT# → ED 16:31
DX: T40.411A Poisoning by fentanyl or fentanyl analogs, accidental (unintentional), initial encounter (principal); R09.02 Hypoxemia; J44.9 Chronic obstructive pulmonary disease, unspecified; F17.200 Nicotine dependence, unspecified, uncomplicated
CPT/HCPCS: 71045; 94640; 94664; 99284; A9270

== ENCOUNTER 2023-08-11 00:28 | Outpatient (CLI) | payer MEDICARE | END 2023-08-11 22:59 | disposition left against medical advice (07) | LOC: EMS 00:28 | DX: Z03.89 Encounter for observation for other suspected diseases and conditions ruled out (principal); W05.0XXA Fall from non-moving wheelchair, initial encounter; Y92.027 Garden or yard of mobile home as the place of occurrence of the external cause ==

== ENCOUNTER 2023-09-04 12:01 | Outpatient (CLI) | payer MEDICARE | END 2023-09-04 23:59 | disposition critical access hospital (66) | LOC: EMS 12:01 | DX: S49.91XA Unspecified injury of right shoulder and upper arm, initial encounter (principal); W05.0XXA Fall from non-moving wheelchair, initial encounter; Y92.481 Parking lot as the place of occurrence of the external cause | CPT/HCPCS: A0425; A0427 ==

== ENCOUNTER 2023-09-04 12:20 | Emergency (ER) | payer MEDICARE ==
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
[2023-09-04] MEDS: KETOROLAC 15 MG/ML VIAL IVP STA (12:48)
[2023-09-04] MEDS: HYDROmorphone 1 MG/ML CARPUJECT IVP STA ×2 (12:49→14:39)
--- NOTE | 2023-09-04 13:06 | XRAY Report ---
PROCEDURE: Shoulder 2+V RT INDICATIONS: shoulder inj TECHNIQUE: 3 views of the shoulder were acquired. COMPARISON: None. FINDINGS: Bones: There is a displaced and foreshortened fracture of the humeral neck. Soft tissues: No suspicious soft tissue calcifications. The visualized lungs are within normal limi ts. IMPRESSION: Displaced and foreshortened fracture of the humeral neck. Reviewed by: Baljit Jimenez MD on 09/04/2023 1:04 PM PDT Approved by: Baljit Jimenez MD on 09/04/2023 1:04 PM PDT Station ID: [id number]
[2023-09-04] MEDS: ACETAMINOPHEN 500 MG TABLET PO STA (14:27)
[2023-09-04] MEDS: HYDROmorphone 1 MG/ML CARPUJECT IM STA (14:28)
[2023-09-04 16:38] VITALS: BP 127/60; O2SAT 94
[2023-09-04] MEDS: oxyCODONE 5 MG TABLET PO STA (17:15)
[2023-09-04] MEDS: IBUPROFEN 800 MG TABLET PO STA (17:15)
== END 2023-09-04 18:00 | disposition home or self-care (01) ==
LOC: EDUNIT# → ED 12:20
DX: S42.211A Unspecified displaced fracture of surgical neck of right humerus, initial encounter for closed fracture (principal); W05.0XXA Fall from non-moving wheelchair, initial encounter; Y93.89 Activity, other specified; F17.200 Nicotine dependence, unspecified, uncomplicated; Z59.02 Unsheltered homelessness; Z76.0 Encounter for issue of repeat prescription; Z99.3 Dependence on wheelchair
CPT/HCPCS: 73030; 96374; 96375; 99284; A9270; J1170

== ENCOUNTER 2023-10-14 07:49 | Emergency (ER) | payer MEDICARE, MEDICAID ==
[2023-10-14 08:09] VITALS: BP 140/80; O2SAT 100
--- NOTE | 2023-10-14 08:30 | ED Physician Documentation ---
History of Present Illness - Stated complaint Stated Complaint: MED REFILL - Chief complaint Chief Complaint: General - History obtained from History obtained from: Patient - History of Present Illness Timing: Today Pain level max: 0 Pain level now: 0 - Additonal information Additional information: 53-year-old female states that she is living at [facility]. She states she has not had a chance to establish with a new primary care provider and is out of all of her medications. She is requesting medications be sent to [facility]. Otherwise asymptomatic. 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 : None, Kidney stones HEENT: Other Psych: Depression, Bipolar disorder Musculoskeletal: Osteoarthritis, Chronic back pain Derm: Psoriasis - Past Surgical History Past Surgical History: Yes General: Cholecystectomy, Other Ortho: Hip replacement, Other - Present Medications Home Medications: Ambulatory Orders Medication Instructions Recorded Confirmed Trazodone HCl 300 mg PO QPM 02/08/18 10/14/23 Acetaminophen [Acetaminophen Extra 500 mg PO QID PRN #50 tablet 10/14/23 Strength] Albuterol Sulf [Ventolin Hfa 2 puffs INH Q4H PRN #1 each 10/14/23 Inhaler] Budesonide/Formoterol Fumarate 1 puffs IH BID #1 each 10/14/23 [Symbicort 80-4.5 Mcg Inhaler] Citalopram Hydrobromide [Celexa] 20 mg ORAL DAILY #30 tab 10/14/[address] [Depakote Dr] 250 mg PO BID #60 tablet 10/14/23 Pregabalin [Lyrica] 75 mg PO BID #60 cap 10/14/23 Quetiapine Fumarate [Quetiapine 300 mg PO QPM #30 tab 10/14/23 Fumarate ER] Trazodone HCl 300 mg PO QPM #60 tablet 10/14/23 tiZANidine [Zanaflex] 4 mg PO Q8H PRN #60 tab 10/14/23 - Allergies Allergies/Adverse Reactions: Allergies Allergy/AdvReac Type Severity Reaction Status Date / Time No Known Drug Allergies Allergy Verified 10/14/23 07:58 - Social History Does the pt smoke?: Yes Smoking Status: Current every day smoker Does the pt drink ETOH?: No Does the pt have substance abuse?: No - Immunizations Immunizations are current?: Yes - POLST Patient has POLST: No PD ED PE NORMAL - Vitals Vital signs reviewed: Yes - General General: Alert and oriented X 3, No acute distress - HEENT HEENT: Moist mucous membranes - Cardiac Cardiac: RRR - Respiratory Respiratory: No respiratory distress, Clear bilaterally - Derm Derm: Warm and dry - Neuro Neuro: Alert and oriented X 3 - Psych Psych: Normal mood, Normal affect Results - Vitals Vitals: Vital Signs - 24 hr 10/14/23 08:04 Temperature 36.1 C L Heart Rate 83 Respiratory 18 Rate Blood Pressure 140/80 H O2 Saturation 100 Oxygen O2 Source [With Activity] Room air O2 Source [Without Activity] Room air O2 Source Room air PD Medical Decision Making - ED course Complexity details: considered differential, d/w patient ED course: 53-year-old female requests medication refill. No emergency medical condition at this time. Her prescriptions were sent directly to the pharmacy that her assisted living facility uses. Patient will fill all future prescriptions from her primary care provider. This document was made in part using voice recognition software. While efforts are made to proofread this document, sound alike and grammatical errors may occur. Departure - Departure Disposition: 01 Home, Self Care Clinical Impression: Medication refill Condition: Good Follow-Up: your,doctor for further care [Other] Prescriptions: Acetaminophen [Acetaminophen Extra Strength] 500 mg PO QID PRN #50 tablet PRN Reason: Pain Citalopram Hydrobromide [Celexa] 20 mg ORAL DAILY #[address] [Depakote Dr] 250 mg PO BID #60 tablet Pregabalin [Lyrica] 75 mg PO BID #60 cap Quetiapine Fumarate [Quetiapine Fumarate ER] 300 mg PO QPM #30 tab Budesonide/Formoterol Fumarate [Symbicort 80-4.5 Mcg Inhaler] 1 puffs IH BID #1 each Trazodone HCl 300 mg PO QPM #60 tablet Albuterol Sulf [Ventolin Hfa Inhaler] 2 puffs INH Q4H PRN #1 each PRN Reason: Wheezing tiZANidine [Zanaflex] 4 mg PO Q8H PRN #60 tab PRN Reason: Spasms Comments: Your prescriptions were sent to [facility] which is the pharmacy [facility] uses. This should allow them to give you your medications at [facility]. Please follow-up with your doctor for further care and medication refills. Forms: PCP List Discharge Date/Time: 10/14/23 08:48
== END 2023-10-14 08:48 | disposition home or self-care (01) ==
LOC: ED 07:49
DX: Z76.0 Encounter for issue of repeat prescription (principal); F17.200 Nicotine dependence, unspecified, uncomplicated
CPT/HCPCS: 99283

== ENCOUNTER 2023-12-18 09:42 | Emergency (ER) | payer MEDICARE, MEDICAID ==
[2023-12-18 10:09] VITALS: BP 143/106; O2SAT 99
== END 2023-12-18 11:19 | disposition left against medical advice (07) ==
LOC: ED 09:42
DX: Z53.21 Procedure and treatment not carried out due to patient leaving prior to being seen by health care provider (principal)

== ENCOUNTER 2023-12-23 07:41 | Emergency (ER) | payer MEDICARE, MEDICAID ==
[2023-12-23 07:56] VITALS: BP 141/108; O2SAT 99
--- NOTE | 2023-12-23 08:15 | ED Physician Documentation ---
History of Present Illness - Stated complaint Stated Complaint: MED REFIL - Chief complaint Chief Complaint: General - History obtained from History obtained from: Patient - Additonal information Additional information: She lives in assisted living and has had barriers to obtaining primary care. Has a new patient appointment next month but needs refills of her medications. No acute complaints. 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, Kidney stones HEENT: Other Psych: Depression, Bipolar disorder Musculoskeletal: Osteoarthritis, Chronic back pain Derm: Psoriasis - Past Surgical History Past Surgical History: Yes General: Cholecystectomy, Other Ortho: Hip replacement, Other - Present Medications Home Medications: Ambulatory Orders Medication Instructions Recorded Confirmed Acetaminophen [Acetaminophen Extra 500 mg PO QID PRN #50 tablet 10/14/23 12/23/23 Strength] tiZANidine [Zanaflex] 4 mg PO Q8H PRN #60 tab 10/14/23 12/23/23 Albuterol Sulf [Ventolin Hfa 1 - 2 puffs INH Q4HR PRN #1 each 12/23/23 Inhaler] Budesonide/Formoterol Fumarate 1 puffs IH BID #1 each 12/23/23 [Symbicort 80-4.5 Mcg Inhaler] Citalopram Hydrobromide [Celexa] 20 mg ORAL DAILY #30 tab 12/23/[address] [Depakote Dr] 250 mg PO BID #60 tablet 12/23/23 Pregabalin [Lyrica] 75 mg PO BID #60 cap 12/23/23 Quetiapine Fumarate [Quetiapine 300 mg PO QPM #30 tab 12/23/23 Fumarate ER] Trazodone HCl 300 mg PO QPM #60 tablet 12/23/23 - Allergies Allergies/Adverse Reactions: Allergies Allergy/AdvReac Type Severity Reaction Status Date / Time No Known Drug Allergies Allergy Verified 12/23/23 07:49 - Social History Does the pt smoke?: Yes Smoking Status: Current every day smoker Does the pt drink ETOH?: No Does the pt have substance abuse?: No - Immunizations Immunizations are current?: Yes - POLST Patient has POLST: No PD ED PE NORMAL - Vitals Vital signs reviewed: Yes - General General: Alert and oriented X 3, No acute distress - Neuro Neuro: Alert and oriented X 3 Results - Vitals Vitals: Vital Signs - 24 hr 12/23/23 07:49 Temperature 36 C L Heart Rate 85 Respiratory 18 Rate Blood Pressure 141/108 H O2 Saturation 99 Oxygen O2 Source [With Activity] Room air O2 Source [Without Activity] Room air O2 Source Room air PD Medical Decision Making - ED course ED course: Medical screening exam completed without EMC. Departure - Departure Disposition: Home, Self Care Clinical Impression: Medication refill Condition: Good Prescriptions: Albuterol Sulf [Ventolin Hfa Inhaler] 1 - 2 puffs INH Q4HR PRN #1 each PRN Reason: Shortness Of Air/Wheezing Citalopram Hydrobromide [Celexa] 20 mg ORAL DAILY #[address] [Depakote Dr] 250 mg PO BID #60 tablet Pregabalin [Lyrica] 75 mg PO BID #60 cap Quetiapine Fumarate [Quetiapine Fumarate ER] 300 mg PO QPM #30 tab Budesonide/Formoterol Fumarate [Symbicort 80-4.5 Mcg Inhaler] 1 puffs IH BID #1 each Trazodone HCl 300 mg PO QPM #60 tablet Comments: I sent your prescriptions electronically to [email or web address]. Please utilize your new primary care physician for ongoing medication refills. Thankfully have appointment next month. Return for new or worsening symptoms.
== END 2023-12-23 08:19 | disposition home or self-care (01) ==
LOC: ED 07:41
DX: Z76.0 Encounter for issue of repeat prescription (principal); F17.200 Nicotine dependence, unspecified, uncomplicated
CPT/HCPCS: 99283

== ENCOUNTER 2024-04-11 13:03 | Inpatient (IN) ==
[2024-04-11] MEDS ORDERED: IPRATROPIUM/ALBUTEROL 3 ML NEB INH ONE (13:14)
--- NOTE | 2024-04-11 13:15 | ED Physician Documentation ---
History of Present Illness Stated complaint Stated Complaint: RESP DISTRESS Chief complaint Chief Complaint: Resp History obtained from History obtained from: Patient and EMS Additonal information Additional information: The patient is brought to the emergency department by EMS for chief complaint of hypoxia, cough, fever. The patient is a resident at [facility] and apparently has had a cough for the last few days. The patient has also been somewhat confused and a little combative. She was having worse symptoms a couple of days ago but then yesterday seemed to be doing better. However, the staff noticed that the patient's condition seems to be worsening again and so they called EMS. The patient was somewhat confused and combative when EMS arrived, but when they took a pulse ox, they found it to be 66% on room air. The patient was placed on CPAP and route which did improve her oxygenation, but the patient did not tolerate CPAP very well. Medics state they did not do any other treatments for her. The patient's only respiratory history is asthma and she is a smoker though she reportedly has no prior diagnosis of COPD. Medics state the staff told them the patient has had a cough and they thought possibly a fever. No other complaints at this time. Meds/Allgy Home Medications Ambulatory Orders Medication Instructions Recorded Confirmed acetaminophen 500 mg tablet 500 mg PO QID PRN Pain #50 tabs 10/14/23 01/30/24 (Acetaminophen Extra Strength) albuterol sulfate 2.5 mg/3 mL 2.5 mg (3 mL) continuous 01/30/24 01/30/24 (0.083 %) solution for nebulization nebulization Q4-6H PRN shortness of breath or wheezing #75 mL albuterol sulfate 90 mcg/actuation 1 - 2 puff inhalation Q4HR PRN 01/30/24 01/30/24 aerosol inhaler (Ventolin HFA) Shortness Of Air/Wheezing #1 ea citalopram 20 mg tablet 20 mg PO DAILY #90 tabs 01/30/24 01/30/24 divalproex 250 mg tablet,delayed 250 mg PO BID #180 tabs 01/30/24 01/30/24 release tizanidine 4 mg tablet 4 mg PO Q8H PRN Spasms 90 days 01/30/24 01/30/24 #240 tabs budesonide-formoterol HFA 80 1 inh inhalation BID #10.2 grams 02/04/24 mcg-4.5 mcg/actuation aerosol inhaler (Breyna) escitalopram oxalate 20 mg tablet 20 mg PO QDAY 90 days #90 tabs 02/21/24 pregabalin 150 mg capsule (Lyrica) 150 mg PO BID #90 caps 03/02/24 03/02/24 quetiapine 300 mg tablet 300 mg PO .at bedtime #90 tabs 03/02/24 03/02/24 trazodone 300 mg tablet 300 mg PO .at bedtime #90 tabs 03/02/24 03/02/24 Allergies Allergies Allergy/AdvReac Type Severity Reaction Status Date / Time No Known Drug Allergies Allergy Verified 04/11/24 13:13 [facility] Medical History Medical History (Updated 04/11/24 @ 19:38 by Kristy Francis MD) Closed comminuted supracondylar fracture of femur Reactive depression (situational) Accidental fall from wheelchair Illicit drug use Femur fracture, left Anxiety and depression Hypothermia Left shoulder strain Postoperative hypovolemic shock Osteomyelitis Infected prosthetic hip left hip Septic arthritis Right knee buckling s/p injury/infection, cannot stand on this leg Anemia, iron deficiency (11/26/06) Pyelonephritis, acute (11/20/06) Psoriasis (11/20/06) Migraine with aura (10/22/06) Displaced oblique fracture of shaft of humerus, left arm, initial encounter for closed fracture (05/25/20) Diabetes mellitus with hyperglycemia (11/20/06) Concussion injury of brain Surgical History Surgical History (Updated 01/30/24 @ 14:30 by VLADIMIR Vickers) Hx of inguinal hernia repair right Hx of cholecystectomy Hx of appendectomy Hx of lithotripsy 2007 History of left hip replacement revision due to osteomyelitis, [place], 2016 Hx of bilateral hip replacements Family History Family History (Updated 01/30/24 @ 14:31 by VLADIMIR Vickers) Mother Diabetes Heart failure Father Diabetes Heart failure Social History Social History (Updated 03/02/24 @ 10:23 by Maya Geller RN, BSN) Smoking Status: Current every day smoker Number of Years Smoked: 20 How many cigarettes a day do you smoke? (20 cigarettes=1 Pk): 20 Do you dip or chew tobacco?: No Do you vape?: No Patient requests smoking cessation consult: No Initiate information on smoking cessation: No Living arrangement: Assisted living Relationship: Significant other Home Mobility Equipment: Wheelchair Physical - Functional Details: Pivots for transfers. History of Abuse: No ETOH Use: None Substance Use: cannabis (any form) POLST Patient has POLST: No Exam Constitutional Patient is disheveled and agitated. She appears anxious but is also intermittently nodding off. The patient is easily arousable however. HENMT normocephalic, head/scalp atraumatic, external nose normal and oral mucous membranes normal Eyes EOMs intact bilaterally Neck/C-Spine visual inspection normal and supple Respiratory Fine wheezes, diminished air movement no rales. Prolonged expiratory phase. Cardiovascular normal heart rate noted, regular rhythm noted and no edema Gastrointestinal abdomen normal to inspection, abdomen soft to palpation and nontender to palpation Obese Genitourinary no CVA tenderness Extremities normal to inspection No edema Neurology Awake, answers questions when asked, No focal deficits grossly Psychiatry mental status grossly normal Skin skin color normal Results Vitals Vitals: Vital Signs - 24 hr 04/11/24 13:00 04/11/24 13:13 04/11/24 13:32 Temperature 39.2 C H Temperature Source Axillary Pulse Rate 115 H 120 H Respiratory Rate 30 H Blood Pressure 103/68 O2 Saturation 84 L Oxygen Delivery Method Bi-pap O2 Source Room air Fraction of Inspired Oxygen (FIO2) 40 FiO2 (%) Pain Intensity 5 04/11/24 13:32 04/11/24 13:57 04/11/24 14:27 Temperature Temperature Source Pulse Rate 98 Respiratory Rate 24 Blood Pressure 104/68 O2 Saturation 94 Oxygen Delivery Method Bi-pap O2 Source BIPAP Fraction of Inspired Oxygen (FIO2) FiO2 (%) 40 Pain Intensity 4 5 04/11/24 14:27 04/11/24 14:27 04/11/24 14:30 Temperature Temperature Source Pulse Rate 98 96 Respiratory Rate 24 24 Blood Pressure 106/62 108/70 O2 Saturation 94 96 Oxygen Delivery Method O2 Source BIPAP BIPAP Fraction of Inspired Oxygen (FIO2) FiO2 (%) 40 40 Pain Intensity 5 04/11/24 15:30 04/11/24 15:55 04/11/24 15:55 Temperature 38 C H 38.0 C H 38.0 C H Temperature Source Axillary Pulse Rate 87 Respiratory Rate 18 Blood Pressure 111/76 O2 Saturation 94 Oxygen Delivery Method O2 Source BIPAP Fraction of Inspired Oxygen (FIO2) FiO2 (%) 40 Pain Intensity 04/11/24 16:00 04/11/24 16:21 04/11/24 17:00 Temperature Temperature Source Pulse Rate 69 81 70 Respiratory Rate 20 22 Blood Pressure 112/72 O2 Saturation 92 94 Oxygen Delivery Method O2 Source BIPAP BIPAP Fraction of Inspired Oxygen (FIO2) 40 FiO2 (%) 40 40 Pain Intensity 04/11/24 17:30 04/11/24 17:59 04/11/24 18:21 Temperature 36.9 C 36.6 C Temperature Source Axillary Axillary Pulse Rate 70 72 69 Respiratory Rate 20 20 Blood Pressure 112/68 104/71 O2 Saturation 98 94 Oxygen Delivery Method O2 Source BIPAP BIPAP Fraction of Inspired Oxygen (FIO2) 50 FiO2 (%) 40 Pain Intensity 0 Oxygen O2 Source [With Activity] Room air O2 Source [Without Activity] Room air O2 Source BIPAP Labs Labs: Laboratory Tests 04/11/24 04/11/24 04/11/24 13:26 13:28 13:39 WBC 18.7 H RBC 4.35 Hgb 12.3 Hct 41.2 MCV 94.7 MCH 28.3 MCHC 29.9 L RDW 15.1 H Plt Count 142 MPV 9.1 Neut # (Auto) 16.7 H Lymph # (Auto) 0.6 L Warren # (Auto) 1.1 H Eos # (Auto) 0.0 Baso # (Auto) 0.1 Absolute Nucleated RBC 0.00 Nucleated RBC % 0.0 Bld Gas Analysis Time 1327 Sample Site LEFT RADIAL ABG pH 7.37 ABG pCO2 59 H ABG pO2 87 ABG HCO3 33.8 H ABG Total CO2 36.0 H ABG O2 Saturation 96 ABG Base Excess 9.0 H Esdras Test POSITIVE O2 Delivery Device BiPAP FiO2 40.00 EPAP 8 IPAP 18 Sodium 139 Potassium 4.3 Chloride 101 Carbon Dioxide 34 H Anion Gap 4.0 L BUN 24 H Creatinine 1.3 Estimated GFR (MDRD) 43 L Glucose 98 Lactic Acid Calcium 9.4 Total Bilirubin 0.4 AST 13 ALT 4 L Alkaline Phosphatase 49 B-Natriuretic Peptide 84 Total Protein 7.4 Albumin 3.5 Globulin 3.9 Albumin/Globulin Ratio 0.9 L Lipase 13 Nasal Adenovirus (PCR) NOT DETECTED Nasal B. parapertussis DNA (PCR) NOT DETECTED Nasal Coronavir 229E PCR NOT DETECTED Nasal Coronavir HKU1 PCR NOT DETECTED Nasal Coronavir NL63 PCR NOT DETECTED Nasal Coronavir OC43 PCR NOT DETECTED Nasal Enterovir/Rhinovir PCR NOT DETECTED Nasal Influenza B PCR NOT DETECTED Nasal Influenza A PCR NOT DETECTED Nasal Parainfluen 1 PCR NOT DETECTED Nasal Parainfluen 2 PCR NOT DETECTED Nasal Parainfluen 3 PCR NOT DETECTED Nasal Parainfluen 4 PCR NOT DETECTED Nasal RSV (PCR) NOT DETECTED Nasal B.pertussis DNA PCR NOT DETECTED Nasal C.pneumoniae (PCR) NOT DETECTED Virgilio Human Metapneumo PCR NOT DETECTED Nasal M.pneumoniae (PCR) NOT DETECTED Nasal SARS-CoV-2 (PCR) NOT DETECTED 04/11/24 15:00 WBC RBC Hgb Hct MCV MCH MCHC RDW Plt Count MPV Neut # (Auto) Lymph # (Auto) Warren # (Auto) Eos # (Auto) Baso # (Auto) Absolute Nucleated RBC Nucleated RBC % Bld Gas Analysis Time Sample Site ABG pH ABG pCO2 ABG pO2 ABG HCO3 ABG Total CO2 ABG O2 Saturation ABG Base Excess Esdras Test O2 Delivery Device FiO2 EPAP IPAP Sodium Potassium Chloride Carbon Dioxide Anion Gap BUN Creatinine Estimated GFR (MDRD) Glucose Lactic Acid 0.6 Calcium Total Bilirubin AST ALT Alkaline Phosphatase B-Natriuretic Peptide Total Protein Albumin Globulin Albumin/Globulin Ratio Lipase Nasal Adenovirus (PCR) Nasal B. parapertussis DNA (PCR) Nasal Coronavir 229E PCR Nasal Coronavir HKU1 PCR Nasal Coronavir NL63 PCR Nasal Coronavir OC43 PCR Nasal Enterovir/Rhinovir PCR Nasal Influenza B PCR Nasal Influenza A PCR Nasal Parainfluen 1 PCR Nasal Parainfluen 2 PCR Nasal Parainfluen 3 PCR Nasal Parainfluen 4 PCR Nasal RSV (PCR) Nasal B.pertussis DNA PCR Nasal C.pneumoniae (PCR) Virgilio Human Metapneumo PCR Nasal M.pneumoniae (PCR) Nasal SARS-CoV-2 (PCR) Rads (name of study) chest XR: Relevant Findings:: Final report received and See rad report (nad) PD Medical Decision Making ED course Complexity details: reviewed results, re-evaluated patient, considered differential and d/w patient ED course: The patient was seen by myself immediately upon arrival in the emergency department with EMS. She was placed on BiPAP after her room air oxygen saturation was found to be 85% with a good waveform. The patient was not moving air well and had labored respirations and I did order a DuoNeb and Decadron immediately. The patient's lung exam was quite a bit improved on reevaluation. She was also sent for chest x-ray and laboratory studies were obtained, as well as respiratory PCR panel. The patient's workup was surprisingly largely negative. Her chest x-ray was clear and her respiratory PCR panel is negative. Her white blood cell count was elevated at 18.7 but the remainder of her labs were fairly unremarkable, including a normal lactic acid level. ABG was performed about 30 minutes after the patient was placed on BiPAP, and showed a pH of 3.7, pCO2 of 58.6, pO2 of 87 on 40% FiO2 and O2 saturation of 96%. The patient was found to be quite febrile with a temperature of 39 and was given ibuprofen and Tylenol for that she did not defervesced nicely. The patient wants oxygenated and comfortable did fall heavily asleep, though she was arousable in the ED. Her vital signs including heart rate and blood pressure remained normal once she defervesced and was on BiPAP. She received 2 L of IV fluid as of the time of this dictation while in the ED. I ordered a urinalysis and a CT scan of the head which are pending at this time. The patient has blood cultures pending and as I do not have a source for her fever and the patient is currently still on BiPAP, albeit at minimal settings, I have ordered empiric antibiotics for her. At this point in time, we will continue to hydrate the patient and we will observe her in our emergency department as we have no inpatient beds on either the ICU or the floor and the patient is unlikely to be able to be transferred. The patient will be signed out to Dr. Gillis at change of shift, pending either bed availability in the ICU or improved respiratory and mental status. Discharge Plan Discharge Condition: Serious Clinical Impression: Hypoxia, Acute febrile illness Asthma exacerbation Qualifiers: Asthma severity: mild Asthma persistence: intermittent Qualified Code(s): J45.21 - Mild intermittent asthma with (acute) exacerbation Altered mental status Qualifiers: Altered mental status type: delirium Qualified Code(s): R41.0 - Disorientation, unspecified Prescriptions: No Action budesonide-formoterol [Breyna] 80-4.5 mcg/actuation HFA aerosol inhaler 1 inh inhalation BID Qty: 10.2 3RF escitalopram oxalate 20 mg tablet 20 mg PO QDAY 90 Days Qty: 90 3RF acetaminophen [Acetaminophen Extra Strength] 500 MG tablet 500 mg PO QID PRN (Reason: Pain) Qty: 50 0RF quetiapine 300 mg tablet 300 mg PO .at bedtime Qty: 90 3RF trazodone 300 mg tablet 300 mg PO .at bedtime Qty: 90 3RF pregabalin [Lyrica] 150 mg capsule 150 mg PO BID Qty: 90 1RF albuterol sulfate [Ventolin HFA] 90 mcg/actuation HFA aerosol inhaler 1 - 2 puff inhalation Q4HR PRN (Reason: Shortness Of Air/Wheezing) Qty: 1 12RF albuterol sulfate 2.5 mg /3 mL (0.083 %) solution for nebulization 2.5 mg continuous nebulization Q4-6H PRN (Reason: shortness of breath or wh eezing) Qty: 75 12RF citalopram 20 mg tablet 20 mg PO DAILY Qty: 90 0RF divalproex 250 mg tablet,delayed release (DR/EC) 250 mg PO BID Qty: 180 0RF tizanidine 4 mg tablet 4 mg PO Q8H PRN (Reason: Spasms) 90 Days Qty: 240 0RF Print Language: Gibraltarian Stand Alone Forms: PCP List
[2024-04-11] MEDS: IPRATROPIUM/ALBUTEROL 3 ML NEB INH STA ×3 (13:30→14:49)
[2024-04-11] MEDS ORDERED: DEXAMETHASONE 10 MG/ML VIAL ONE (13:37)
[2024-04-11 13:38] LABS: ABG PH 7.37 (7.35-7.45)
[2024-04-11] MEDS: DEXAMETHASONE 10 MG/ML VIAL IVP STA (13:38)
[2024-04-11 13:39] LABS: ABG HCO3 33.8 mmol/L (22.0-26.0); ABG OXYGEN SATURATION 96 % (94-98); ABG PCO2 59 mmHg (34-45); ABG PO2 87 mmHg (80-100); ALLEN TEST POSITIVE
[2024-04-11] MEDS: LORazepam 2 MG/ML VIAL IVP STA (13:41)
[2024-04-11 13:49] LABS: BASOPHILS # (AUTO) 0.1 10^3/uL (0.0-0.1); BASOPHILS % (AUTO) 0.3 %; EOSINOPHILS % (AUTO) 0.1 %; HCT - HEMATOCRIT 41.2 % (37.0-47.0); HGB - HEMOGLOBIN 12.3 g/dL (12.0-16.0); LYMPHOCYTES # (AUTO) 0.6 10^3/uL (1.5-3.5); LYMPHOCYTES % (AUTO) 3.2 %; MEAN CORPUSCULAR HEMOGLOBIN 28.3 pg (27.0-31.0); MEAN CORPUSCULAR HGB CONC 29.9 g/dL (32.0-36.0); MEAN CORPUSCULAR VOLUME 94.7 fL (81.0-99.0); MEAN PLATELET VOLUME 9.1 fL (7.9-10.8); MONOCYTES # (AUTO) 1.1 10^3/uL (0.0-1.0); MONOCYTES % (AUTO) 6.1 %; NEUTROPHILS # (AUTO) 16.7 10^3/uL (1.5-6.6); NEUTROPHILS % (AUTO) 89.4 %; PLT - PLATELET COUNT 142 10^3/uL (130-450); RED BLOOD COUNT 4.35 10^6/uL (4.20-5.40); RED CELL DISTRIBUTION WIDTH 15.1 % (12.0-15.0); WHITE BLOOD COUNT 18.7 x10^3/uL (4.8-10.8)
--- NOTE | 2024-04-11 13:59 | XRAY Report ---
PROCEDURE: XR Chest 1V INDICATIONS: sob/cough/fever TECHNIQUE: One view of the chest was acquired. COMPARISON: Chest x-ray 08/08/2023. FINDINGS: Surgical changes and devices: None. Lungs and pleura: No pleural effusions or pneumothorax. No consolidation. Mediastinum: Mediastinal contours appear normal. Heart size is normal. Bones and chest wall: No suspicious bony lesions. Overlying soft tissues appear unremarkable. IMPRESSION: No acute cardiopulmonary process. Reviewed by: Kisha Littlejohn MD on 04/11/2024 1:57 PM PST Approved by: Kisha Littlejohn MD on 04/11/2024 1:57 PM [facility] Station ID: [id number]
[2024-04-11 14:00] LABS: ALBUMIN 3.5 g/dL (3.2-5.5); ALBUMIN/GLOBULIN RATIO 0.9 (1.0-2.2); BILIRUBIN,TOTAL 0.4 mg/dL (0.2-1.0); CALCIUM 9.4 mg/dL (8.5-10.3); CREATININE 1.3 mg/dL (0.6-1.3); POTASSIUM 4.3 mmol/L (3.5-4.5); TOTAL PROTEIN 7.4 g/dL (6.4-8.9)
[2024-04-11 14:26] LABS: B. PARAPERTUSSIS- RESP PCR PAN NOT DETECTED; B. PERTUSSIS- RESP PCR PANEL NOT DETECTED; C. PNEUMONIAE- RESP PCR PANEL NOT DETECTED; CORONAVIRUS 229E-RESP PCR NOT DETECTED; CORONAVIRUS HKU1-RESP PCR NOT DETECTED; CORONAVIRUS NL63-RESP PCR NOT DETECTED; CORONAVIRUS OC43-RESP PCR NOT DETECTED; HUMAN METAPNEUMOVIRUS NOT DETECTED; INFLUENZA A- RESP PCR PANEL NOT DETECTED; INFLUENZA B - RESP PCR PANEL NOT DETECTED; M. PNEUMONIAE- RESP PCR PANEL NOT DETECTED; PARAINFLUENZA VIRUS 1 NOT DETECTED; PARAINFLUENZA VIRUS 2 NOT DETECTED; PARAINFLUENZA VIRUS 4 NOT DETECTED; RHINOVIRUS/ENTEROVIRUS NOT DETECTED; RSV- RESP PCR PANEL NOT DETECTED; SARS-CoV-2 -RESP PCR PANEL NOT DETECTED
[2024-04-11] MEDS: ACETAMINOPHEN 500 MG TABLET PO STA (14:27)
[2024-04-11] MEDS: IBUPROFEN 600 MG TABLET PO STA (14:27)
[2024-04-11] MEDS: SODIUM CHLORIDE 0.9% 1,000 ML IV STA ×2 (15:05→18:16)
[2024-04-11] MEDS ORDERED: VANCOMYCIN 1 GM VIAL ONE (19:11)
[2024-04-11] MEDS: PIPERACILLIN/TAZOBACTAM 3.375 GM in SODIUM CHLORIDE 0.9% MINIBAG 100 ML IV STA (19:14)
[2024-04-11] MEDS: VANCOMYCIN INJ 2.5 GM in SODIUM CHLORIDE 0.9% 500 ML IV STA (19:49)
--- NOTE | 2024-04-11 19:56 | CT Report ---
PROCEDURE: CT Head WO INDICATIONS: ALOC TECHNIQUE: Noncontrast 4.5 mm thick angled axial sections acquired from the foramen magnum to the vertex. For r adiation dose reduction, the following was used: automated exposure control, adjustment of mA and/or kV according to patient size. COMPARISON: 02/08/2018 FINDINGS: Image quality: There is streak artifact seen through the skull base. CSF spaces: Basal cisterns are patent. No extra-axial fluid collections. Ventricles are normal in size and shape. Brain: No midline shift. No intracranial masses or hemorrhage. Maldonado-white matter interface is norm al. Skull and face: Calvarium and visualized facial bones are intact, without suspicious lesions. Sinuses: Visualized sinuses and mastoids are clear. IMPRESSION: Limited noncontrast head CT, without a cause of altered mental status identified. Reviewed by: Jono Vasquez MD on 04/11/2024 6:54 PM [place] Approved by: Jono Vasquez MD on 04/11/2024 6:54 PM [facility] Station ID: [id number]
[2024-04-11 21:59] LABS: BILIRUBIN,URINE NEGATIVE (NEGATIVE); GLUCOSE, URINE (UA) NEGATIVE (NEGATIVE); KETONES,URINE (UA) NEGATIVE (NEGATIVE); LEUKOCYTE ESTERASE, URINE TRACE (NEGATIVE); NITRITE,URINE POSITIVE (NEGATIVE); OCCULT BLOOD,URINE NEGATIVE (NEGATIVE); PROTEIN,URINE 100 mg/dL (NEGATIVE); UROBILINOGEN,URINE 0.2 (NORMAL) E.U./dL (NORMAL)
[2024-04-11 22:00] LABS: CLARITY,URINE HAZY (CLEAR)
[2024-04-11 22:09] LABS: BACTERIA,URINE Many /HPF (None Seen); RBC,URINE 0-5 /HPF (0-5); SQUAMOUS EPITHELIAL CELL,UR RARE Squamous (<= Few); WBC,URINE >25 /HPF (0-5)
[2024-04-11] MEDS ORDERED: ONDANSETRON 4 MG/2 ML VIAL IVP PRN (22:37)
[2024-04-11] MEDS ORDERED: SODIUM CHLORIDE FLUSH 0.9% 10 ML SYRINGE IVP PRN (22:37)
[2024-04-11] MEDS ORDERED: IPRATROPIUM 0.2 MG/ML NEB INH PRN (22:37)
[2024-04-11] MEDS ORDERED: PROCHLORPERAZINE 10 MG/2 ML VIAL IVP PRN (22:37)
[2024-04-11] MEDS ORDERED: ALBUTEROL NEB 2.5 MG/3 ML INH PRN (22:37)
--- NOTE | 2024-04-11 22:54 | HISTORY & PHYSICAL EXAMINATION ---
Chief Complaint Chief Complaint Chief Complaint: altered mentation History of Present Illness Admitted From Admitted From:: ED History Obtained From Records Reviewed: EMR History obtained from: ED staff and staff nurse midwife Exam Limitations: Telemedicine and patient is altered and unable to provide information History of Present Illness HPI Comment/Other: 53F c Bipolar disorder, general anxiety disorder, asthma, tobacco abuse, hypertension, DM2, and wheelchair dependent hx who was brought into the ED by EMS for having increasing weakness and "SOA" for the last few days per RN report. Patient was noted for O2 satruation 80% on room air. EMS placed patient on bipap. Patient seen in the ED and is severe obtunded and non responsive to voice. RN reporting patient would arouse to physical stimuli however will fall back unconscious. She is stable on bipap and a odell was placed. ED staff reporting workup citing leukocytosis and abnormal UA concerning for UTI sepsis. Empiric abx was given to patient and ED staff is requesting Hospital Medicine assistance with medical management. EMR was reviewed and patient noted to have received Zosyn and also Ativan and Decadron. CT head and CXR were both negative for acute findings. Review of Systems Status of ROS: See HPI and unobtainable due to mental status PFSH Medical History Medical History (Updated 04/11/24 @ 23:07 by Geri Crespo DO) Closed comminuted supracondylar fracture of femur Reactive depression (situational) Accidental fall from wheelchair Illicit drug use Femur fracture, left Anxiety and depression Hypothermia Left shoulder strain Postoperative hypovolemic shock Osteomyelitis Infected prosthetic hip left hip Septic arthritis Right knee buckling s/p injury/infection, cannot stand on this leg Anemia, iron deficiency (11/26/06) Pyelonephritis, acute (11/20/06) Psoriasis (11/20/06) Migraine with aura (10/22/06) Displaced oblique fracture of shaft of humerus, left arm, initial encounter for closed fracture (05/25/20) Diabetes mellitus with hyperglycemia (11/20/06) Concussion injury of brain Surgical History Surgical History (Updated 01/30/24 @ 14:30 by VLADIMIR Vickers) Hx of inguinal hernia repair right Hx of cholecystectomy Hx of appendectomy Hx of lithotripsy 2007 History of left hip replacement revision due to osteomyelitis, [place], 2016 Hx of bilateral hip replacements Family History Family History (Updated 01/30/24 @ 14:31 by VLADIMIR Vickers) Mother Diabetes Heart failure Father Diabetes Heart failure Social History Social History (Updated 03/02/24 @ 10:23 by Maya Geller RN, BSN) Smoking Status: Current every day smoker Number of Years Smoked: 20 How many cigarettes a day do you smoke? (20 cigarettes=1 Pk): 20 Do you dip or chew tobacco?: No Do you vape?: No Patient requests smoking cessation consult: No Initiate information on smoking cessation: No Living arrangement: Assisted living Relationship: Home Mobility Equipment: Wheelchair Physical - Functional Details: [employer] for transfers. History of Abuse: No ETOH Use: None Substance Use: cannabis (any form) POLST Patient has POLST: No Meds/Allgy Home Medications Ambulatory Orders Medication Instructions Recorded Confirmed acetaminophen 500 mg tablet 500 mg PO QID PRN Pain #50 tabs 10/14/23 01/30/24 (Acetaminophen Extra Strength) albuterol sulfate 2.5 mg/3 mL 2.5 mg (3 mL) continuous 01/30/24 01/30/24 (0.083 %) solution for nebulization nebulization Q4-6H PRN shortness of breath or wheezing #75 mL albuterol sulfate 90 mcg/actuation 1 - 2 puff inhalation Q4HR PRN 01/30/24 01/30/24 aerosol inhaler (Ventolin HFA) Shortness Of Air/Wheezing #1 ea citalopram 20 mg tablet 20 mg PO DAILY #90 tabs 01/30/24 01/30/24 divalproex 250 mg tablet,delayed 250 mg PO BID #180 tabs 01/30/24 01/30/24 release tizanidine 4 mg tablet 4 mg PO Q8H PRN Spasms 90 days 01/30/24 01/30/24 #240 tabs budesonide-formoterol HFA 80 1 inh inhalation BID #10.2 grams 02/04/24 mcg-4.5 mcg/actuation aerosol inhaler (Breyna) escitalopram oxalate 20 mg tablet 20 mg PO QDAY 90 days #90 tabs 02/21/24 pregabalin 150 mg capsule (Lyrica) 150 mg PO BID #90 caps 03/02/24 03/02/24 quetiapine 300 mg tablet 300 mg PO .at bedtime #90 tabs 03/02/24 03/02/24 trazodone 300 mg tablet 300 mg PO .at bedtime #90 tabs 03/02/24 03/02/24 Allergies Allergies Allergy/AdvReac Type Severity Reaction Status Date / Time No Known Drug Allergies Allergy Verified 04/11/24 13:13 Exam Exam obtunded and not responding to questions. cannot followup command 2/2 obtunded. Constitutional -P--t-k-w-e-n-t- -i-s- -b-k-r-w-b-n-e-l-e-d- -a-n-d- -x-f-k-t-a-t-e-d-.- - - -S-h-e- -u-g-z-e-a-r-s- -t-l-v-i-o-u-s- -b-u-t- -i-s- -a-l-s-o- -d-h-v-o-m-h-a-p-g-e-n-t-l-y- -i-b-f-d-i-n-g- -o-f-f-.- - - -T-h-e- -r-z-v-i-e-n-t- -i-s- -a-g-z-i-l-y- -q-b-i-x-g-u-b-l-e- -b-w-t-e-v-e-r-.- obtunded and not responding to questions. cannot followup command 2/2 obtunded. [facility] normocephalic, head/scalp atraumatic, external nose normal and oral mucous membranes normal Eyes EOMs intact bilaterally Neck/C-Spine visual inspection normal and supple Respiratory breath sounds equal bilaterally, normal respiratory effort and clear to auscultation bilaterally Fine wheezes, diminished air movement no rales. Prolonged expiratory phase. Cardiovascular normal heart rate noted, regular rhythm noted and no edema Gastrointestinal abdomen normal to inspection, abdomen soft to palpation, nontender to palpation and nondistended Obese Genitourinary no CVA tenderness Extremities normal to inspection No edema Neurology Awake, answers questions when asked, No focal deficits grossly Psychiatry mental status grossly normal Skin skin color normal Conclusion/Plan Problem List (1) Sepsis secondary to UTI: Plan: -empiric abx. followup cultures. iv fluid support. followup am labs especially lactic acid. (2) Acute hypoxemic respiratory failure: Plan: -possible 2/2 UTI sepsis. r/o PE. r/o CHF. will seek BLE Venous Duplex for assessment of DVT/PE. getting echo. abx for UTI sepsis. continue O2 support. duoneb. (3) Encephalopathy acute: Plan: -altered at this time. likely combination of sepsis + lorazepam. will treat UTI sepsis with empiric abx. avoid medication that can further alter mentation. pharm to assist with home med reconciliation to restart baseline bipolar and anxiety medications. (4) Asthma exacerbation: Plan: -restart home breathing treatment. adding prn Duoneb. holding off steroids as RN reporting no wheeze on examination Qualifiers: Asthma persistence: intermittent Asthma severity: mild Qualified Code(s): J45.21 - Mild intermittent asthma with (acute) exacerbation (5) DM2 (diabetes mellitus, type 2): Plan: -no diabetes med noted on home med list. will seek out pharm assistance with home med reconciliation. (6) Essential (primary) hypertension: Plan: -no antihypertensives noted on med list. will seek out pharm assistance with home med reconciliation. (7) Generalized anxiety disorder: Plan: -managed. consulting pharm to assist with home med reconciliation and restarting home psychiatric meds (8) Bipolar 2 disorder: Plan: -managed. consulting pharm to assist with home med reconciliation and restarting home psychiatric meds Plan empiric abx and breathing treatment and O2 support. r/o DVT/PE Lab Results Lab results reviewed: Yes 04/11/24 13:39 04/11/24 13:39 Diagnostic Imaging Results Diagnostic Imaging Results: positive Final report reviewed Core Measures Anticipated LOS I expect patient to be DC'd or transferred within 96 hours.: Yes Issues Hospital Issues and Management Plan: The patient consented to receive this telemedicine service, which I performed via live two-way audiovisual equipment. The patient is at ([facility]) and I am physically in [facility]. A nurse assisted me in the visit. Full code unclear POA SCDs, Heparin Inpatient Jasonmusa Crespo DO Internal Medicine [employer] DVT/VTE - Prophylaxis VTE/DVT Device ordered at admit?: No Not Ordered - Medical Reason: Complication (will need to r/o DVT first. followup venous US BLE) VTE/DVT Prophylaxis med ordered at admit?: Yes Telemedicine Consult Details Provider Location & Consult Time Telemedicine consultation conducted via videoconferencing?: Yes List names and roles of persons who participated in consult:: ED saff and staff nurse midwife Telemedicine provider location:: [facility] Time Telemedicine consult began:: 22:32 Time Telemedicine consult completed:: 23:32
--- NOTE | 2024-04-11 23:24 | ED Physician Documentation ---
ED Addendum Addendum Addendum: I received signout/turnover of care of this patient from Dr. Vargas; please see her note for complete H&P. In brief, the patient was brought in by ambulance for dyspnea, altered mental status. Found to be hypoxic on room air by EMS, with improvement subsequent to placement of CPAP by EMS (changed to BiPAP in ED). When patient first arrived, she was febrile with temperature 39.2. Leukocytosis on CBC (WBC 18.7). She defervesced early in ED stay and remained afebrile for the remainder of my shift while patient was in ED. Dr. Vargas the also ordered Decadron IV, DuoNeb, and empiric antibiotics (zosyn, vancomycin). I urine sample had still not been obtained at the time of turnover of care, and I thus ordered a Pelletier catheter. The urinalysis results are C/W UTI which should be adequately covered with empiric antibiotics had already been given. However, we will this could explain her fever and leukocytosis, the cause of her hypoxia remains unclear; Chest x-ray is without cardiopulmonary abnormality. Dr. Francis also had ordered CTA head to further evaluate the AMS, and there are no concerning findings on this study. During my shift, ICU bed became available at [facility] and I then discussed this case with the on-call [facility] telehealth practitioner who accepts patient for admission to [facility]. Discharge Plan Discharge Patient Disposition: [facility] DC/Xfer Condition: Serious Clinical Impression: Asthma exacerbation, Hypoxia, Acute febrile illness, Altered mental status Interventions: ED Admission Assessment Last Done: 04/11/24 23:32
[2024-04-12] MEDS: SODIUM CHLORIDE FLUSH 0.9% 10 ML SYRINGE IVP SCH (00:06)
[2024-04-12] MEDS: SODIUM CHLORIDE 0.9% 1,000 ML IV SCH (00:06)
[2024-04-12] MEDS: DOXYCYCLINE INJ 100 MG in SODIUM CHLORIDE 0.9% MINIBAG 100 ML IV SCH (00:06)
[2024-04-12] MEDS: INSULIN REGULAR, HUMAN 300 UNIT/3 ML PEN SUBQ SCH (00:19)
[2024-04-12 05:00] LABS: BASOPHILS % (AUTO) 0.2 %; EOSINOPHILS % (AUTO) 0.1 %; HCT - HEMATOCRIT 37.8 % (37.0-47.0); HGB - HEMOGLOBIN 11.5 g/dL (12.0-16.0); LYMPHOCYTES # (AUTO) 0.6 10^3/uL (1.5-3.5); LYMPHOCYTES % (AUTO) 4.4 %; MEAN CORPUSCULAR HEMOGLOBIN 29.3 pg (27.0-31.0); MEAN CORPUSCULAR HGB CONC 30.4 g/dL (32.0-36.0); MEAN CORPUSCULAR VOLUME 96.2 fL (81.0-99.0); MEAN PLATELET VOLUME 9.8 fL (7.9-10.8); MONOCYTES # (AUTO) 0.4 10^3/uL (0.0-1.0); MONOCYTES % (AUTO) 3.1 %; NEUTROPHILS # (AUTO) 12.8 10^3/uL (1.5-6.6); NEUTROPHILS % (AUTO) 91.7 %; PLT - PLATELET COUNT 98 10^3/uL (130-450); RED BLOOD COUNT 3.93 10^6/uL (4.20-5.40); RED CELL DISTRIBUTION WIDTH 15.4 % (12.0-15.0); WHITE BLOOD COUNT 13.9 x10^3/uL (4.8-10.8)
[2024-04-12 05:14] LABS: CALCIUM, IONIZED 1.12 mmol/L (1.15-1.33); VBG PH 7.354 (7.31-7.41)
[2024-04-12 05:30] LABS: MAGNESIUM 1.8 mg/dL (1.7-2.3)
[2024-04-12 05:36] LABS: CALCIUM 8.6 mg/dL (8.5-10.3); CREATININE 1.3 mg/dL (0.6-1.3); PHOSPHORUS 3.8 mg/dL (2.5-5.0); POTASSIUM 4.2 mmol/L (3.5-4.5)
[2024-04-12 05:44] LABS: INR 1.1 (0.8-1.2); PT - PROTHROMBIN TIME 12.5 secs (9.9-12.6)
[2024-04-12] MEDS: IPRATROPIUM/ALBUTEROL 3 ML NEB INH SCH (05:44)
[2024-04-12] MEDS: ACETAMINOPHEN 325 MG TABLET PO PRN (09:00)
[2024-04-12] MEDS: MAGNESIUM OXIDE 400 MG TABLET PO ONE (09:00)
[2024-04-12] MEDS: HEPARIN 5,000 UNIT/ML VIAL SUBQ SCH (09:01)
--- NOTE | 2024-04-12 11:34 | Ultrasound Report ---
PROCEDURE: US Venous Duplex BL INDICATIONS: Kristy Francis MD TECHNIQUE: Real-time imaging, as well as color and pulse Doppler interrogation, were performed of the deep veins of both legs from the inguinal ligament to the popliteal fossa. Attempted visualization of the calf veins was performed. Limited visualization of the catheter due to patient's body habitus. COMPARISON: None FINDINGS: The deep veins are normally compressible, and free of intraluminal thrombus. Color and pu lse Doppler demonstrate normal phasic intravascular flow. There is normal augmentation response to d istal compression maneuver. There is a right Ny's cyst measuring 7.9 x 1.5 x 2.8 cm. IMPRESSION: No deep venous thrombosis of the visualized lower extremities. Reviewed by: Jax Patel MD on 04/12/2024 11:33 AM PST Approved by: Jax Patel MD on 04/12/2024 11:33 AM PST Station ID: [id number]
--- NOTE | 2024-04-12 11:55 | PHARMACY PROGRESS NOTE ---
Best Possible Medication History Admit Date and Time: 04/11/24 2237 Home Medications Medication Instructions Recorded Confirmed Type acetaminophen 500 mg tablet 500 mg PO QID PRN Pain #50 tabs 10/14/23 04/12/24 Rx (Acetaminophen Extra Strength) albuterol sulfate 2.5 mg/3 mL 2.5 mg (3 mL) continuous 01/30/24 04/12/24 Rx (0.083 %) solution for nebulization nebulization Q4-6H PRN shortness of breath or wheezing #75 mL albuterol sulfate 90 mcg/actuation 1 - 2 puff inhalation Q4HR PRN 01/30/24 Rx aerosol inhaler (Ventolin HFA) Shortness Of Air/Wheezing #1 ea citalopram 20 mg tablet 20 mg PO DAILY #90 tabs 01/30/24 04/12/24 Rx divalproex 250 mg tablet,delayed 250 mg PO BID #180 tabs 01/30/24 04/12/24 Rx release tizanidine 4 mg tablet 4 mg PO Q8H PRN Spasms 90 days 01/30/24 04/12/24 Rx #240 tabs budesonide-formoterol HFA 80 1 inh inhalation BID #10.2 grams 02/04/24 04/12/24 Rx mcg-4.5 mcg/actuation aerosol inhaler (Breyna) pregabalin 150 mg capsule (Lyrica) 150 mg PO BID #90 caps 03/02/24 04/12/24 Rx ibuprofen 600 mg tablet (IBU) 600 mg PO Q6H 04/12/24 04/12/24 History quetiapine 300 mg tablet 300 mg PO HS 04/12/24 04/12/24 History trazodone 300 mg tablet 300 mg PO HS 04/12/24 04/12/24 History Processed by: Pharmacy Medications reviewed in ED?: No Medication History completed: Yes Patient Interview: Pt unable to participate Secondary Source(s): Facility MAR as ONLY source (MAR from [facility]) [facility] Statement: As the person ultimately responsible for medication therapy, providers are able to order a medication from an existing home medication list in [facility] via the "Reconcile Routine" prior to Confirmation of that medication by wan support specialist. Such practice is discouraged except when the physician, in their clinical judgment, deems that a medical need exists for a medication without regard to previous use.
--- NOTE | 2024-04-12 14:23 | PROVIDER PROGRESS NOTE ---
Progress Note Progress Note Progress Note: April 12, 2024 2:54 PM Patient was admitted yesterday with sepsis from a UTI. She was admitted by telehealth.He presented to the emergency room on the evening of April 11 with dyspnea, altered mental status. She was found to be hypoxic at the [facility] with improvement once CPAP was placed. When she was seen in the ER she was febrile to 39.2, white cell count 18.7. Decadron, DuoNeb and empiric antibiotics with Zosyn and vancomycin were ordered. Pelletier catheter was ordered because she was not producing urine. Urine results were compatible with UTI. She defervesced while in the ER. However the cause of her hypoxia remains unclear. Chest x-ray did not have cardio pulmonary abnormality. CT of the head was done to evaluate abnormal status and was negative. Echocardiogram was ordered but results are pending. She was placed in the ICU because of the CPAP. But this morning I found her awake, alert. Able to tell me she was in the hospital. Not quite sure of why she was in the hospital but she knew that she had some type of infection. CPAP mask was leaking. Several times she removed it to speak to me. She did not have increased respiratory effort. I remove the CPAP and she has been maintaining O2 sats at 91 to 97% on room air. Her last fever was yesterday afternoon at 4 PM where she was 38. Since then she has been afebrile. Pulse rate although yesterday was bradycardic below 60 and today she is 83 and 74. She is tearful. Emotionally labile. Saying that she is really anxious and would like some Ativan. She is scared, "I am nervous". Reviewed her chart. This patient has multiple, multiple, multiple ER visits within our healthcare system.She is no longer followed by our community clinics. Care was terminated at all clinics as of November 06, 2015 but she is seen at the [facility]in clinics. Past medical history 1. Bipolar disorder with depression and severe anxiety 2. Morbid obesity. 87 kg October 2016. 3. Immobility and unable to ambulate but able to stand and pivot out of a ch air. She is morbidly obese and had significant left hip osteoarthritis pain. She was seen for that and underwent a total hip arthroplasty on the left in July 2015. She fell and had periprosthetic fx. After repair, MSSA infectio tx with 6 weeks of abx. Washed out and new prosthetic but she subsequently developed another infection in that hip joint. Fistula by 12/2015. cemented spacer placed and another 6 weeks of abx. . Girdlestone procedure 06/2016. Seen by ID at [facility] 09/2016 since still draining. Wound vac continues and present when she fell out of wheelchair 11/06/16 and had distal L femur fx. Transferred to [facility] 11/06/16. Nonoperative management with splinting and knee immobilization. DC to home 11/09/16. July 19, 2019 left foot slipped getting out of the shower and waited 3 days. Pain unbearable and came to the ER and has a nondisplaced left femur fracture. Seen by [facility] orthopedics. Nonoperative management with nonweightbearing and immobilization status. Still has scar that has not healed w eschar over L hip wound. 4. Asthma, No intubation. Uses albuterol via nebulizer solution, budesonide with formoterol via inhalation. 5. Accidental fentanyl overdose July 2023. 6. Displaced oblique fracture of shaft of humerus, left arm May 25, 2020 when she fell out of her wheelchair. She had a right shoulder proximal humeral fracture September 04, 2023. Parking lot with her wheelchair, hit her depression, fell out of the wheelchair. 7. Hypertension 8. Pyelonephritis May 2007 and October 2006. 9. History of iron deficiency anemia 10. Psoriasis 11. Type 2 diabetes mellitus with proteinuria 12. Migraine headache with aura 13. Cholecystectomy 14. Appendectomy 15. Hernia repair 16. Opioid use disorder Family history: Father has a history of diabetes and arthritis Mother has history of diabetes and arthritis Social History: She used to live with her . The complications of her hip surgery resulted in her being wheelchair-bound. When he could no longer take care of her, she went to [facility] which is a memory care unit and an assisted living facility.. She is a smoker of 2 cigs a day.. No history of alcohol abuse. History of amphetamines, methamphetamines, and cannabinoids in her urine toxicology screen January 2018. Exam: Temperature 36.7. Heart rate 74. Respirations 19. 90% on room air. Blood pressure 128/83. She is a morbidly obese female who weighs 123 kg. She is able to sit up in bed, and with the help of nursing pivot her legs to the side of the bed. She can stand and pivot on her good leg without the Girdlestone. Her baseline at the long term is to require 1 person assist for this. She can feed herself, and needs help with dressing. Lungs have diminished breath sounds at the bases with a few crackles but they clear with a cough Regular rate and rhythm Abdomen is obese, soft, nontender. Normal bowel sounds. Legs are large, the left lateral hip has a pink scar from her previous surgeries. At the distal end of the scar above the knee, she has black eschar. The granulation appears bigger and pinker but there is no surrounding cellulitis, no surrounding drainage. Lab: White cell count has come down to 13.9. On admission she was 18.7. Hemoglobin 11.5. This appears to be her baseline. MCV is 96. [facility] felt that she had anemia of chronic disease when she was there for her hip. Platelets 98. Since 2016 her platelets have been steadily cr eeping down. In August 2016 she was 457. October 2016 she was 320. January 19 309. February 2024 197. Yesterday 142 and today 98. Chemistries have a normal potassium, sodium, chloride. Anion gap is low at 5. BUN 28, creatinine 1.3. Baseline creatinine is 1.1. Glucose is 156. Glucose before breakfast was 134, before lunch 129. Lactic acid normal at 0.8. Calcium, phosphorus, magnesium are normal. Troponin is 4.6. BNP is 84. Venous duplex of the lower extremities was normal from last night. Head CT had no cause of altered mental status identified. Chest x-ray had no acute cardiopulmonary process. Conclusion/plan. 45 minutes was spent obtaining and reviewing old records from clinics, , previous hospitalizations. 20 minutes was spent with the patient and note. 1. Sepsis secondary to UTI resolving. Criteria met were altered mental status, fever, white cell count. Lactic acid was normal. Empiric antibiotic therapy was started in the form of Rocephin. Today is day #2. I would plan 2 out of 7 days of IV antibiotics. She is already waking up this morning and white cell count is responding and she does not have a fever. I will adjust antibiotics on the basis of culture results. If she is off 02 tomorrow And her white cell count is normal, she can return to her [facility] facility. 2. Acute hypoxemic respiratory failure.Improved but still present. At this time is being attributed to her sepsis,. Telehealth ordered bilateral venous duplex for assessment of DVT PE and that was negative. Patient does not have CHF on the basis of the BNP. Echocardiogram was ordered and done but the results are pending. I do not suspect CHF but I will review the echo. I suspect her asthma with sepsis was the culprit. Her respiratory failure is resolving as of this morning. She is off CPAP. Still low on the O2 sats but not needing oxygen. I will continue to monitor for signs and symptoms of respiratory failure. Give her nasal cannula oxygen as needed. But I will change her to MedSurg status. Discontinue CPAP. Nurse says that when the patient naps and falls asleep, she is not hypoxic. 3. History of asthma. She had fine wheezes last night. This morning she does not. At home she takes albuterol, and budesonide with formoterol. I will resume The long-acting inhalers, inhaled steroid, and short acting medications. This morning's exam does not show wheezing. 4. Generalized anxiety with a bipolar disorder. I have ordered the Ativan. But I will reconcile her medications and also give her back her citalopram 20 mg daily., divalproex to 50 mg twice daily. 5. Chronic pain syndrome with opioid use disorder. She is on pregabalin, and I will resume the 150 mg capsule twice daily. She is on Seroquel 300 mg at night and I will resume that. I will also resume her tizanidine 4 mg every 8 hours as needed. I also resume trazodone 300 mg at at bedtime. 6. 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 It is reported that she does stand and pivot. She did that once this morning. Once all of her criteria for sepsis have resolved and she is firmly staying safely on room air oxygen she can return back to her assisted living facility. Current Medications Current Medications Current Medications: Current Medications Generic Name Dose Route Start Last Admin Trade Name Freq PRN Reason Stop Dose Admin Acetaminophen 650 mg 04/11/24 22:37 04/12/24 09:00 Acetaminophen 325 Mg Tablet PO 650 mg Q4HR PRN Administration Pain 1 to 4, or Fever Albuterol 2.5 mg 04/11/24 22:37 Albuterol Neb 2.5 Mg/3 Ml INH Q6H PRN Wheezing Albuterol/Ipratropium 3 ml 04/12/24 06:00 04/12/24 12:59 Ipratropium/Albuterol 3 Ml Neb INH 3 ml Q6HR RUBÉN Administration Budesonide 0.5 mg 04/12/24 19:00 Budesonide 0.5 Mg/2 Ml Neb INH RTBID [facility] Citalopram Hydrobromide 20 mg 04/13/24 09:00 Citalopram Hydrobromide 20 Mg Tablet PO DAILY [facility] Divalproex Sodium 250 mg 04/12/24 21:[address] 250 Mg Tablet PO BID [facility] Formoterol Fumarate 20 mcg 04/12/24 19:00 Formoterol Fumarate Neb 20 Mcg/2 Ml INH RTBID [facility] Heparin Sodium (Porcine) 5,000 unit 04/12/24 09:00 04/12/24 09:01 Heparin 5,000 Unit/Ml Vial SUBQ 5,000 unit BID RUBÉN Administration Sodium Chloride 1,000 mls @ 75 mls/hr 04/11/24 23:00 04/12/24 13:18 Normal Saline 0.9% IV Not Given .[id number] [facility] Ceftriaxone Sodium 2 gm/ 100 mls @ 200 mls/hr 04/12/24 22:44 Sodium Chloride IV DAILY [facility] Insulin Human Lispro 1 - 5 unit 04/12/24 17:00 Insulin Lispro 300 Unit/3 Ml Pen SUBQ 0800,1200,1700,2100 [facility] Protocol Ipratropium [place] 0.5 mg 04/11/24 22:37 Ipratropium 0.2 Mg/Ml Neb INH Q6HR PRN Wheezing Lorazepam 1 mg 04/12/24 14:48 04/12/24 16:26 Lorazepam 1 Mg Tablet PO 1 mg Q6H PRN Administration Anxiety Ondansetron HCl 4 mg 04/11/24 22:37 Ondansetron 4 Mg/2 Ml Vial IVP Q6HR PRN Nausea / Vomiting Pregabalin 100 mg 04/12/24 21:00 Pregabalin 100 Mg Capsule PO BID RUBÉN Pregabalin 50 mg 04/12/24 21:00 Pregabalin 25 Mg Capsule PO BID [facility] Prochlorperazine Edisylate 10 mg 04/11/24 22:37 Prochlorperazine 10 Mg/2 Ml Vial IVP Q6HR PRN Nausea / Vomiting Quetiapine Fumarate 300 mg 04/12/24 15:00 04/12/24 15:03 Quetiapine 100 Mg Tablet PO 300 mg HS RUBÉN Administration Sodium Chloride 10 ml 04/12/24 01:00 04/12/24 09:01 Sodium Chloride Flush 0.9% 10 Ml Syringe IVP 10 ml 0100,0900,1700 RUBÉN Administration Sodium Chloride 10 ml 04/11/24 22:37 Sodium Chloride Flush 0.9% 10 Ml Syringe IVP PRN PRN NEEDED PER PROVIDER ORDERS Tizanidine HCl 4 mg 04/12/24 14:20 Tizanidine 4 Mg Tablet PO Q8H PRN Spasms Trazodone HCl 300 mg 04/12/24 21:00 Trazodone 50 Mg Tablet PO HS RUBÉN
[2024-04-12] MEDS: QUEtiapine 100 MG TABLET PO SCH (15:03)
[2024-04-12] MEDS: LORazepam 1 MG TABLET PO PRN (16:26)
[2024-04-12 16:52] LABS: AMPHETAMINE SCREEN,URINE NEGATIVE (NEGATIVE); BENZODIAZEPINES SCREEN, URINE POSITIVE (NEGATIVE); COCAINE SCREEN URINE NEGATIVE (NEGATIVE); METHAMPHETAMINES SCREEN, URINE NEGATIVE (NEGATIVE); OPIATE SCREEN, URINE NEGATIVE (NEGATIVE); THC CANNABINOID SCREEN, URINE POSITIVE (NEGATIVE); TRICYCLIC ANTIDEPRESSANT,URINE POSITIVE (NEGATIVE)
[2024-04-12 16:53] LABS: BARBITURATE SCREEN,UR NEGATIVE (NEGATIVE); BUPRENORPHINE SCREEN, URINE NEGATIVE (NEGATIVE); METHADONE SCREEN, URINE NEGATIVE (NEGATIVE); OXYCODONE SCREEN, URINE NEGATIVE (NEGATIVE)
[2024-04-12] MEDS: INSULIN LISPRO 300 UNIT/3 ML PEN SUBQ SCH (17:45)
[2024-04-12] MEDS: traZODone 50 MG TABLET PO SCH (20:05)
[2024-04-12] MEDS: DIVALPROEX DR 250 MG TABLET PO SCH (20:06)
[2024-04-12] MEDS: PREGABALIN 100 MG CAPSULE PO SCH (20:06)
[2024-04-12] MEDS: PREGABALIN 25 MG CAPSULE PO SCH (20:06)
[2024-04-12] MEDS: FORMOTEROL FUMARATE NEB 20 MCG/2 ML INH SCH (21:10)
[2024-04-12] MEDS: BUDESONIDE 0.5 MG/2 ML NEB INH SCH (21:10)
[2024-04-12] MEDS: cefTRIAXone 2 GM in SODIUM CHLORIDE 0.9% MINIBAG 100 ML IV SCH (22:51)
[2024-04-13 05:45] LABS: BASOPHILS % (AUTO) 0.2 %; EOSINOPHILS % (AUTO) 0.4 %; HCT - HEMATOCRIT 32.6 % (37.0-47.0); HGB - HEMOGLOBIN 9.9 g/dL (12.0-16.0); LYMPHOCYTES # (AUTO) 1.4 10^3/uL (1.5-3.5); LYMPHOCYTES % (AUTO) 12.9 %; MEAN CORPUSCULAR HEMOGLOBIN 28.9 pg (27.0-31.0); MEAN CORPUSCULAR HGB CONC 30.4 g/dL (32.0-36.0); MONOCYTES # (AUTO) 0.8 10^3/uL (0.0-1.0); MONOCYTES % (AUTO) 7.7 %; NEUTROPHILS # (AUTO) 8.6 10^3/uL (1.5-6.6); NEUTROPHILS % (AUTO) 78.3 %; PLT - PLATELET COUNT 113 10^3/uL (130-450); RED BLOOD COUNT 3.43 10^6/uL (4.20-5.40); RED CELL DISTRIBUTION WIDTH 15.7 % (12.0-15.0)
[2024-04-13 05:56] LABS: CREATININE 1.1 mg/dL (0.6-1.3); POTASSIUM 4.2 mmol/L (3.5-4.5)
[2024-04-13] MEDS: CITALOPRAM HYDROBROMIDE 20 MG TABLET PO SCH (08:19)
[2024-04-13] MEDS: tiZANidine 4 MG TABLET PO PRN (10:51)
--- NOTE | 2024-04-13 13:08 | PROVIDER PROGRESS NOTE ---
Subjective Subjective Subjective: Today, patient is doing well. She notes some dysuria and frequency on admission, which is now resolved. She has had no difficulty breathing. She is on room air now. Current Medications Current Medications Current Medications: Current Medications Generic Name Dose Route Start Last Admin Trade Name Freq PRN Reason Stop Dose Admin Acetaminophen 650 mg 04/11/24 22:37 04/12/24 09:00 Acetaminophen 325 Mg Tablet PO 650 mg Q4HR PRN Administration Pain 1 to 4, or Fever Albuterol 2.5 mg 04/11/24 22:37 Albuterol Neb 2.5 Mg/3 Ml INH Q6H PRN Wheezing Albuterol/Ipratropium 3 ml 04/12/24 06:00 04/13/24 08:04 Ipratropium/Albuterol 3 Ml Neb INH Not Given Q6HR RUBÉN Budesonide 0.5 mg 04/12/24 19:00 04/13/24 10:12 Budesonide 0.5 Mg/2 Ml Neb INH 0.5 mg RTBID RUBÉN Administration Citalopram Hydrobromide 20 mg 04/13/24 09:00 04/13/24 08:19 Citalopram Hydrobromide 20 Mg Tablet PO 20 mg DAILY RUBÉN Administration Divalproex Sodium 250 mg 04/12/24 21:00 04/13/24 08:[address] 250 Mg Tablet PO 250 mg BID RUBÉN Administration Formoterol Fumarate 20 mcg 04/12/24 19:00 04/13/24 10:12 Formoterol Fumarate Neb 20 Mcg/2 Ml INH 20 mcg RTBID RUBÉN Administration Heparin Sodium (Porcine) 5,000 unit 04/12/24 09:00 04/13/24 08:21 Heparin 5,000 Unit/Ml Vial SUBQ 5,000 unit BID RUBÉN Administration Ceftriaxone Sodium 2 gm/ 100 mls @ 200 mls/hr 04/12/24 22:44 04/13/24 09:55 Sodium Chloride IV Infused DAILY RUBÉN Infusion Insulin Human Lispro 1 - 5 unit 04/12/24 17:00 04/13/24 11:31 Insulin Lispro 300 Unit/3 Ml Pen SUBQ Not Given 0800,1200,1700,2100 [facility] Protocol Ipratropium [place] 0.5 mg 04/11/24 22:37 Ipratropium 0.2 Mg/Ml Neb INH Q6HR PRN Wheezing Lorazepam 1 mg 04/12/24 14:48 04/13/24 08:34 Lorazepam 1 Mg Tablet PO 1 mg Q6H PRN Administration Anxiety Ondansetron HCl 4 mg 04/11/24 22:37 Ondansetron 4 Mg/2 Ml Vial IVP Q6HR PRN Nausea / Vomiting Pregabalin 100 mg 04/12/24 21:00 04/13/24 08:20 Pregabalin 100 Mg Capsule PO 100 mg BID RUBÉN Administration Pregabalin 50 mg 04/12/24 21:00 04/13/24 08:20 Pregabalin 25 Mg Capsule PO 50 mg BID RUBÉN Administration Prochlorperazine Edisylate 10 mg 04/11/24 22:37 Prochlorperazine 10 Mg/2 Ml Vial IVP Q6HR PRN Nausea / Vomiting Quetiapine Fumarate 300 mg 04/12/24 15:00 04/12/24 20:05 Quetiapine 100 Mg Tablet PO 300 mg HS RUBÉN Administration Sodium Chloride 10 ml 04/12/24 01:00 04/13/24 08:20 Sodium Chloride Flush 0.9% 10 Ml Syringe IVP 10 ml 0100,0900,1700 RUBÉN Administration Sodium Chloride 10 ml 04/11/24 22:37 Sodium Chloride Flush 0.9% 10 Ml Syringe IVP PRN PRN NEEDED PER PROVIDER ORDERS Tizanidine HCl 4 mg 04/12/24 14:20 04/13/24 10:51 Tizanidine 4 Mg Tablet PO 4 mg Q8H PRN Administration Spasms Trazodone HCl 300 mg 04/12/24 21:00 04/12/24 20:05 Trazodone 50 Mg Tablet PO 300 mg HS RUBÉN Administration Objective Vital Signs/Intake & Output Reviewed Vital Signs: Yes Vital Signs: Vital Signs x48h Temp Pulse Pulse Resp BP Pulse Ox 04/13/24 10:14 70 20 04/13/24 07:45 97.7 F 67 20 111/69 93 Intake & Output: Intake & Output 04/10/24 04/11/24 04/12/24 04/13/24 23:59 23:59 23:59 23:59 Intake Total 2600 / 2600 2090 / 2090 630 / 630 Output Total 225 / 225 725 / 725 1075 / 1075 Balance 2375 / 2375 1365 / 1365 -445 / -445 Weight (kg) 124 kg 121.5 kg Objective General Appearance: positive No acute distress and Alert; negative Anxious Eyes Bilateral: positive Normal inspection, PERRL and EOMI ENT: positive ENT inspection nml, Pharynx nml and No signs of dehydration Neck: positive Nml inspection, Thyroid nml and No JVD Respiratory: positive Chest non-tender and Wheezes (mild expiratory diffusely); negative Rales or Rhonchi Cardiovascular: positive Regular rate & rhythm, No murmur and No gallop; negative Tachycardia Abdomen: positive Non-tender, No organomegaly, Nml bowel sounds and No distention Back: positive Nml inspection; negative CVA tenderness (R) or CVA tenderness (L) Skin: positive Color nml, No rash and Warm Extremities: positive Non-tender, Nml appearance and No pedal edema Neurologic/Psychiatric: positive Oriented x3, Mood/affect nml, Disoriented to person and Disoriented to place Lab Results 04/13/24 05:20 04/13/24 05:20 Other Labs: Lab Results x24hrs 04/13/24 04/13/24 04/13/24 Range/Units 11:20 07:43 05:20 WBC 11.0 H (4.8-10.8) x10^3/uL RBC 3.43 L (4.20-5.40) 10^6/uL Hgb 9.9 L (12.0-16.0) g/dL Hct 32.6 L (37.0-47.0) % MCV 95.0 (81.0-99.0) fL MCH 28.9 (27.0-31.0) pg MCHC 30.4 L (32.0-36.0) g/dL RDW 15.7 H (12.0-15.0) % Plt Count 113 L (130-450) 10^3/uL MPV 10.0 (7.9-10.8) fL Neut # (Auto) 8.6 H (1.5-6.6) 10^3/uL Lymph # (Auto) 1.4 L (1.5-3.5) 10^3/uL [place] # (Auto) 0.8 (0.0-1.0) 10^3/uL Eos # (Auto) 0.0 (0.0-0.7) 10^3/uL Baso # (Auto) 0.0 (0.0-0.1) 10^3/uL Absolute Nucleated RBC 0.00 x10^3/uL Nucleated RBC % 0.0 /100WBC Sodium 138 (135-145) mmol/L Potassium 4.2 (3.5-4.5) mmol/L Chloride 104 (101-111) mmol/L Carbon Dioxide 29 (21-32) mmol/L Anion Gap 5.0 L (6-13) BUN 28 H (6-20) mg/dL Creatinine 1.1 (0.6-1.3) mg/dL Estimated GFR (MDRD) 52 L (>89) Glucose 89 (74-104) mg/dL POC Whole Bld Glucose 90 82 (70-100) mg/dL Calcium 8.0 L (8.5-10.3) mg/dL Urine Opiates Screen (NEGATIVE) Ur Buprenorphine Scrn (NEGATIVE) Ur Oxycodone Screen (NEGATIVE) Urine Methadone Screen (NEGATIVE) Ur Barbiturates Screen (NEGATIVE) Ur Tricyclics Screen (NEGATIVE) Ur Phencyclidine Scrn (NEGATIVE) Ur Amphetamine Screen (NEGATIVE) U Methamphetamines Scrn (NEGATIVE) U Benzodiazepines Scrn (NEGATIVE) Urine Cocaine Screen (NEGATIVE) U Cannabinoids Screen (NEGATIVE) Ur Drug Screen Comment 04/12/24 04/12/24 04/12/24 Range/Units 20:49 16:44 16:20 WBC (4.8-10.8) x10^3/uL RBC (4.20-5.40) 10^6/uL Hgb (12.0-16.0) g/dL Hct (37.0-47.0) % MCV (81.0-99.0) fL MCH (27.0-31.0) pg MCHC (32.0-36.0) g/dL RDW (12.0-15.0) % Plt Count (130-450) 10^3/uL MPV (7.9-10.8) fL Neut # (Auto) (1.5-6.6) 10^3/uL Lymph # (Auto) (1.5-3.5) 10^3/uL [place] # (Auto) (0.0-1.0) 10^3/uL Eos # (Auto) (0.0-0.7) 10^3/uL Baso # (Auto) (0.0-0.1) 10^3/uL Absolute Nucleated RBC x10^3/uL Nucleated RBC % /100WBC Sodium (135-145) mmol/L Potassium (3.5-4.5) mmol/L Chloride (101-111) mmol/L Carbon Dioxide (21-32) mmol/L Anion Gap (6-13) BUN (6-20) mg/dL Creatinine (0.6-1.3) mg/dL Estimated GFR (MDRD) (>89) Glucose (74-104) mg/dL POC Whole Bld Glucose 114 136 (70-100) mg/dL Calcium (8.5-10.3) mg/dL Urine Opiates Screen NEGATIVE (NEGATIVE) Ur Buprenorphine Scrn NEGATIVE (NEGATIVE) Ur Oxycodone Screen NEGATIVE (NEGATIVE) Urine Methadone Screen NEGATIVE (NEGATIVE) Ur Barbiturates Screen NEGATIVE (NEGATIVE) Ur Tricyclics Screen POSITIVE H (NEGATIVE) Ur Phencyclidine Scrn NEGATIVE (NEGATIVE) Ur Amphetamine Screen NEGATIVE (NEGATIVE) U Methamphetamines Scrn NEGATIVE (NEGATIVE) U Benzodiazepines Scrn POSITIVE H (NEGATIVE) Urine Cocaine Screen NEGATIVE (NEGATIVE) U Cannabinoids Screen POSITIVE H (NEGATIVE) Ur Drug Screen Comment CUTOFF CONC BELOW: Diagnostic Imaging Diagnostic Imaging Results: positive Final report reviewed Assessment/Plan Problem List (1) Sepsis secondary to UTI: Impression: Leukocytosis is now resolving, 11 today, was 18.7 on admission. Vital signs are stable. She has been afebrile for 24 hours. Heart rate is normal. She is saturating 93% on room air. Urine culture is growing E. coli, sensitivities to follow. Today is day 2 of IV antibiotics. Will get 1 more dose of Rocephin tomorrow morning. And then will complete 2 days of oral antibiotics at home, and will be medically cleared for discharge tomorrow 04/14. (2) Acute hypoxemic respiratory failure: Impression: Resolved. Has history of asthma on Symbicort and albuterol at home. Continue DuoNebs while here. Currently on room air. Will do ambulatory pulse ox tomorrow prior to discharge. Chest x-ray was done on admission which showed no acute cardiopulmonary process. Echo was also completed, and it shows mildly impaired ejection fraction of 45 to 50%, no valvular disease, no diastolic impairment. (3) Encephalopathy acute: Impression: Resolved. (4) DM2 (diabetes mellitus, type 2): Impression: Continue low-dose sliding scale. 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 Blood pressure has been stable, well-controlled. (6) Generalized anxiety disorder: Impression: Patient on citalopram, Seroquel, Depakote, trazodone, Lyrica at home for her generalized anxiety disorder and bipolar type II disorder; continued. (7) Bipolar 2 disorder: Impression: Patient on citalopram, Seroquel, Depakote, trazodone, Lyrica at home for her generalized anxiety disorder and bipolar type II disorder; continued.
--- NOTE | 2024-04-13 13:09 | Discharge Summary ---
Discharge Summary Admit Date: 04/11/24 Discharge Date: 04/14/24 Discharging Provider: Dr. Jb Matthews Primary Care Provider: Eduarda Plasencia Code Status: Attempt Resuscitation Discharge Facility Name: [facility] DIAGNOSES Admission Diagnoses: Sepsis secondary to UTI Acute cephalopathy Asthma exacerbation Type 2 diabetes mellitus Hypertension Generalized anxiety disorder Type II bipolar disorder Discharge Diagnoses with Status of Each Condition: Sepsis secondary to UTIleukocytosis resolved, patient afebrile. Urine culture is growing ESBL E. coli. Sensitivities include Macrobid, Rocephin. Today is day 3 of antibiotics, will send 2 more days of oral antibiotics to pharmacy. Acute hypoxemic respiratory failurelikely asthma exacerbation. Currently on room air. Chest x-ray showed no acute pulmonary process. Echo showed mildly impaired ejection fraction of 45 to 50%. Acute encephalopathyresolved. Type 2 diabetes mellituscontinue low-dose sliding scale. Hypertensionstable without medications. Generalized anxiety disorder, bipolar disordercontinue citalopram, Seroquel, Depakote, trazodone, Lyrica. HPI History of Present Illness: Per Dr. Crespo: 53F c Bipolar disorder, general anxiety disorder, asthma, tobacco abuse, hypertension, DM2, and wheelchair dependent hx who was brought into the ED by EMS for having increasing weakness and "SOA" for the last few days per RN report. Patient was noted for O2 satruation 80% on room air. EMS placed patient on bipap. Patient seen in the ED and is severe obtunded and non responsive to voice. RN reporting patient would arouse to physical stimuli however will fall back unconscious. She is stable on bipap and a odell was placed. ED staff reporting workup citing leukocytosis and abnormal UA concerning for UTI sepsis. Empiric abx was given to patient and ED staff is requesting Hospital Medicine assistance with medical management. EMR was reviewed and patient noted to have received Zosyn and also Ativan and Decadron. CT head and CXR were both negative for acute findings. CONSULTS | PROCEDURES Consultations: Social work, case management, respiratory therapy Procedures: Chest x-rayno acute cardiopulmonary processcompleted 04/11. HOSPITAL COURSE Hospital Course: Head CTnegativecompleted 04/11. Venous duplexnegative, completed 04/12. Echocompleted 04/12shows mildly impaired ejection fraction 45 to 50%, no cardiac valve disease. ALLERGIES Allergies Allergy/AdvReac Type Severity Reaction Status Date / Time No Known Drug Allergies Allergy Verified 04/11/24 13:13 MEDICATIONS Ambulatory Orders Medication Instructions Recorded Confirmed acetaminophen 500 mg tablet 500 mg PO QID PRN Pain #50 tabs 10/14/23 04/12/24 (Acetaminophen Extra Strength) albuterol sulfate 2.5 mg/3 mL 2.5 mg (3 mL) continuous 01/30/24 04/12/24 (0.083 %) solution for nebulization nebulization Q4-6H PRN shortness of breath or wheezing #75 mL albuterol sulfate 90 mcg/actuation 1 - 2 puff inhalation Q4HR PRN 01/30/24 04/12/24 aerosol inhaler (Ventolin HFA) Shortness Of Air/Wheezing #1 ea citalopram 20 mg tablet 20 mg PO DAILY #90 tabs 01/30/24 04/12/24 divalproex 250 mg tablet,delayed 250 mg PO BID #180 tabs 01/30/24 04/12/24 release tizanidine 4 mg tablet 4 mg PO Q8H PRN Spasms 90 days 01/30/24 04/12/24 #240 tabs budesonide-formoterol HFA 80 1 inh inhalation BID #10.2 grams 02/04/24 04/12/24 mcg-4.5 mcg/actuation aerosol inhaler (Breyna) pregabalin 150 mg capsule (Lyrica) 150 mg PO BID #90 caps 03/02/24 04/12/24 ibuprofen 600 mg tablet (IBU) 600 mg PO Q6H 04/12/24 04/12/24 quetiapine 300 mg tablet 300 mg PO HS 04/12/24 04/12/24 trazodone 300 mg tablet 300 mg PO HS 04/12/24 04/12/24 nitrofurantoin 100 mg PO BID 2 days #4 caps 04/13/24 monohydrate/macrocrystals 100 mg capsule (Macrobid) PHYSICAL EXAM AT DISCHARGE General Appearance: positive No acute distress and Alert; negative Anxious Eyes Bilateral: positive Normal inspection, PERRL and EOMI ENT: positive ENT inspection nml, Pharynx nml and No signs of dehydration Neck: positive Nml inspection, Thyroid nml and No JVD Respiratory: positive Chest non-tender and No respiratory distress; negative Wheezes, Rales or Rhonchi Cardiovascular: positive Regular rate & rhythm, No murmur and No gallop Peripheral Pulses: positive 2+ Abdomen: positive Non-tender, No organomegaly, Nml bowel sounds and No distention; negative Tenderness, Guarding, Hepatomegaly or Splenomegaly Back: positive Nml inspection; negative CVA tenderness (R) or CVA tenderness (L) Skin: positive Color nml, No rash, Warm, Dry and Pallor; negative Cyanosis or Diaphoresis Extremities: positive Non-tender and No pedal edema Neurologic/Psychiatric: positive Oriented x3 and Mood/affect nml; negative Sensory loss, Facial droop or Slurred/abnml speech LABS 04/14/24 05:25 04/14/24 05:25 DIAGNOSTIC IMAGING Diagnostic Imaging Results: Final report reviewed SEPSIS Current Stage of Sepsis: Resolved QUALITY (Female Hip Fx Only) Was patient sent home on osteoporosis medication?: No FOLLOW UP Follow Up: Follow up with PCP - appointment set up with Dr. Jacob. TIME SPENT Time Spent in Discharge (Minutes): 35 Discharge Plan Discharge Patient Disposition: [address] [facility] DC/Xfer Condition: Stable Prescriptions: New nitrofurantoin monohyd/m-cryst [Macrobid] 100 mg capsule 100 mg PO BID 2 Days Qty: 4 0RF Rx Instructions: must administer with a meal/food Continued budesonide-formoterol [Breyna] 80-4.5 mcg/actuation HFA aerosol inhaler 1 inh inhalation BID Qty: 10.2 3RF acetaminophen [Acetaminophen Extra Strength] 500 MG tablet 500 mg PO QID PRN (Reason: Pain) Qty: 50 0RF ibuprofen [IBU] 600 mg tablet 600 mg PO Q6H quetiapine 300 mg tablet 300 mg PO HS trazodone 300 mg tablet 300 mg PO HS pregabalin [Lyrica] 150 mg capsule 150 mg PO BID Qty: 90 1RF albuterol sulfate [Ventolin HFA] 90 mcg/actuation HFA aerosol inhaler 1 - 2 puff inhalation Q4HR PRN (Reason: Shortness Of Air/Wheezing) Qty: 1 12RF albuterol sulfate 2.5 mg /3 mL (0.083 %) solution for nebulization 2.5 mg continuous nebulization Q4-6H PRN (Reason: shortness of breath or wheezing) Qty: 75 12RF citalopram 20 mg tablet 20 mg PO DAILY Qty: 90 0RF divalproex 250 mg tablet,delayed release (DR/EC) 250 mg PO BID Qty: 180 0RF tizanidine 4 mg tablet 4 mg PO Q8H PRN (Reason: Spasms) 90 Days Qty: 240 0RF Activity Restrictions: Activity as Tolerated Diet: Diabetic Health Concerns: You came in because you had a fever and were confused. You are found to have a urinary tract infection. You were also in an active asthma exacerbation, requiring oxygen, which has now been taken off. Your lungs sound better! And your breathing is improved. We treated you with IV antibiotics for the duration of the time you were here. I have sent 2 more days of oral antibiotics to your care facility. Please continue to take your inhalers as prescribed. Please follow-up with your primary care physician; the appointment has been set up for you, with Dr. Jacob on 04/22 at 940, check-in at 9:25 AM. We are glad you are feeling better, thank you for letting us take care of you. Print Language: Frisian Patient Instructions: UTI, Asthma Action Plan Ch Stand Alone Forms: SNF Discharge, PCP List
[2024-04-13] MEDS: guaiFENesin/DEXTROMETHORPHAN 10 ML UDC PO PRN (18:26)
[2024-04-14 00:13] VITALS: TEMP 97.9
[2024-04-14 06:04] LABS: BASOPHILS % (AUTO) 0.4 %; EOSINOPHILS # (AUTO) 0.1 10^3/uL (0.0-0.7); EOSINOPHILS % (AUTO) 1.3 %; HCT - HEMATOCRIT 33.9 % (37.0-47.0); HGB - HEMOGLOBIN 10.4 g/dL (12.0-16.0); LYMPHOCYTES % (AUTO) 27.6 %; MEAN CORPUSCULAR HEMOGLOBIN 29.3 pg (27.0-31.0); MEAN CORPUSCULAR HGB CONC 30.7 g/dL (32.0-36.0); MEAN CORPUSCULAR VOLUME 95.5 fL (81.0-99.0); MEAN PLATELET VOLUME 9.6 fL (7.9-10.8); MONOCYTES # (AUTO) 0.7 10^3/uL (0.0-1.0); MONOCYTES % (AUTO) 9.1 %; NEUTROPHILS # (AUTO) 4.4 10^3/uL (1.5-6.6); NEUTROPHILS % (AUTO) 61.2 %; PLT - PLATELET COUNT 110 10^3/uL (130-450); RED BLOOD COUNT 3.55 10^6/uL (4.20-5.40); RED CELL DISTRIBUTION WIDTH 15.5 % (12.0-15.0); WHITE BLOOD COUNT 7.2 x10^3/uL (4.8-10.8)
[2024-04-14 06:16] LABS: CALCIUM 8.2 mg/dL (8.5-10.3); CREATININE 1.1 mg/dL (0.6-1.3); POTASSIUM 4.6 mmol/L (3.5-4.5)
[2024-04-14 09:19] VITALS: BP 112/89; O2SAT 90
[2024-04-14] MEDS: NITROFURANTOIN MACRO 100 MG CAPSULE PO SCH (09:53)
== END 2024-04-14 12:18 | DRG 871 ==
LOC: ED 13:03 → ICU 22:37 → MS2 04-12 17:30
PROVIDERS: ADMIT Internal Medicine; ATTEND Internal Medicine
DX: J96.01 Acute respiratory failure with hypoxia; F17.210 Nicotine dependence, cigarettes, uncomplicated; N39.0 Urinary tract infection, site not specified; E11.9 Type 2 diabetes mellitus without complications; E66.01 Morbid (severe) obesity due to excess calories; G93.40 Encephalopathy, unspecified; F41.1 Generalized anxiety disorder; I10 Essential (primary) hypertension; G89.4 Chronic pain syndrome; Z68.41 Body mass index [BMI] 40.0-44.9, adult; R65.20 Severe sepsis without septic shock; Z99.3 Dependence on wheelchair; R41.0 Disorientation, unspecified; R50.9 Fever, unspecified; R09.02 Hypoxemia; Z83.3 Family history of diabetes mellitus; A41.51 Sepsis due to Escherichia coli [E. coli]; F31.81 Bipolar II disorder; D72.829 Elevated white blood cell count, unspecified; J45.21 Mild intermittent asthma with (acute) exacerbation

== ENCOUNTER 2024-06-02 04:28 | Inpatient (IN) ==
--- NOTE | 2024-06-02 04:50 | ED Physician Documentation ---
History of Present Illness Stated complaint Stated Complaint: SOA Chief complaint Chief Complaint: Resp Additonal information Additional information: BIBA. HPI from EMS, patient. Patient is a resident at [facility] in [place]. Per EMS report, EMS was contacted yesterday afternoon for reported dyspnea and hypoxia. Patient was found to be in a smoking area of [facility], actively smoking and refused transfer to the emergency department. EMS was again contacted tonight for report of hypoxia and unresponsiveness. EMS reports that on their arrival, patient was awake alert and responsive, pulse ox 72% on 2 L nasal cannula. EMS increased the supplemental oxygen to 6 L, resulting in 85% pulse ox, then increased to 100% nonrebreather which resulted in a 98 to 100% pulse ox. GCS 15 for EMS throughout evaluation and transport, AAOx3. Fingerstick blood sugar by EMS is 88. EMS reports that patient does use supplemental oxygen at [facility], 2 L nasal cannula. However, on my HPI, patient tells me she does not use supplemental oxygen at home ([facility]). Patient does complain of shortness of breath and nonproductive cough on my HPI/ROS. She denies chest pain, leg swelling. She is not aware of any recent fever. Meds/Allgy Home Medications Ambulatory Orders Medication Instructions Recorded Confirmed acetaminophen 500 mg tablet 500 mg PO QID PRN Pain #50 tabs 10/14/23 06/02/24 (Acetaminophen Extra Strength) budesonide-formoterol HFA 80 1 inh inhalation BID #10.2 grams 02/04/24 06/02/24 mcg-4.5 mcg/actuation aerosol inhaler (Breyna) ibuprofen 600 mg tablet (IBU) 600 mg PO Q6H PRN pain 04/12/24 06/02/24 quetiapine 300 mg tablet 300 mg PO HS 04/12/24 06/02/24 trazodone 300 mg tablet 300 mg PO HS 04/12/24 06/02/24 albuterol sulfate 90 mcg/actuation 1 - 2 puff inhalation Q4HR PRN 05/06/24 06/02/24 aerosol inhaler (Ventolin HFA) Shortness Of Air/Wheezing #1 ea citalopram 20 mg tablet 20 mg PO DAILY #90 tabs 05/07/24 06/02/24 divalproex 250 mg tablet,delayed 250 mg PO BID #180 tabs 05/07/24 06/02/24 release pregabalin 150 mg capsule (Lyrica) 150 mg PO BID #180 caps 05/24/24 06/02/24 Allergies Allergies Allergy/AdvReac Type Severity Reaction Status Date / Time No Known Drug Allergies Allergy Verified 06/02/24 04:40 PFSH Active Problems All Active Problems (Updated 06/02/24 @ 13:01 by Courtney Calero) UTI (urinary tract infection) (Acute) Injury of left foot (Acute) Hypoxemia (Acute) Acute exacerbation of extrinsic asthma (Acute) Viral upper respiratory tract infection with cough (Acute) PTSD (post-traumatic stress disorder) (Acute) Sepsis (Acute) DM2 (diabetes mellitus, type 2) (Acute) Hyperkalemia (Acute) Preventative health care (Acute) Wheelchair dependent (Chronic) Chronic pain (Chronic) Generalized anxiety disorder (Chronic) Bipolar 2 disorder (Chronic) Essential (primary) hypertension (Chronic 07/13/07) Asthma, moderate persistent (Chronic 10/22/06) Medical History Medical History Closed comminuted supracondylar fracture of femur Reactive depression (situational) Accidental fall from wheelchair Illicit drug use Femur fracture, left Anxiety and depression Hypothermia Left shoulder strain Postoperative hypovolemic shock Osteomyelitis Infected prosthetic hip left hip Septic arthritis Right knee buckling s/p injury/infection, cannot stand on this leg Anemia, iron deficiency (11/26/06) Pyelonephritis, acute (11/20/06) Psoriasis (11/20/06) Migraine with aura (10/22/06) Displaced oblique fracture of shaft of humerus, left arm, initial encounter for closed fracture (05/25/20) Diabetes mellitus with hyperglycemia (11/20/06) Concussion injury of brain Surgical History Surgical History Hx of inguinal hernia repair right Hx of cholecystectomy Hx of appendectomy Hx of lithotripsy 2007 History of left hip replacement revision due to osteomyelitis, [place], 2016 Hx of bilateral hip replacements Family History Family History Mother Diabetes Heart failure Father Diabetes Heart failure Social History Social History Smoking Status: Current every day smoker Number of Years Smoked: 30 How many cigarettes a day do you smoke? (20 cigarettes=1 Pk): 10 Second hand tobacco smoke exposure: Yes Do you dip or chew tobacco?: No Do you vape?: No Patient requests smoking cessation consult: No Initiate information on smoking cessation: No Living arrangement: Assisted living Relationship: Level: Independent Home Mobility Equipment: Wheelchair Physical - Functional Details: Pivots for transfers. Do you feel safe in your home environment?: Yes Suffered physical, verbal, emotional, or financial abuse?: No History of Abuse: No ETOH Use: None Substance Use: cannabis (any form) POLST Patient has POLST: No Exam Constitutional normal general appearance, no apparent distress and alert [id number], expression frustration that EMS cut off her shirt. frequent dry cough during H+P Respiratory breath sounds equal bilaterally, auscultation abnormal and wheezing noted (bilateral course wheezing throughout expiratory phase in all lung kennedy) (expiratory wheezes) Cardiovascular normal heart rate noted, regular rhythm noted and no JVD Gastrointestinal abdomen soft to palpation, nontender to palpation, nondistended and normoactive bowel sounds Results Vitals Vitals: Vital Signs - 24 hr 06/02/24 07:00 06/02/24 09:00 06/02/24 09:28 Pulse Rate 80 77 76 Respiratory Rate 19 18 20 Blood Pressure 124/74 124/75 O2 Saturation 91 L 88 L O2 Source Nasal cannula Nasal cannula Nasal cannula If not protocol: Oxygen Flow, liters/minute 3 2 2 06/02/24 10:24 06/02/24 10:59 Pulse Rate 78 78 Respiratory Rate 18 20 Blood Pressure 125/83 O2 Saturation 89 L O2 Source Nasal cannula Nasal cannula If not protocol: Oxygen Flow, liters/minute 2 2 Oxygen O2 Source [With Activity] Room air O2 Source [Without Activity] Room air O2 Source Nasal cannula Labs Labs: Laboratory Tests 06/02/24 06/02/24 05:00 05:12 WBC 8.0 RBC 4.41 Hgb 12.4 Hct 42.8 MCV 97.1 MCH 28.1 MCHC 29.0 L RDW 15.4 H Plt Count 160 MPV 9.3 Neut # (Auto) 5.1 Lymph # (Auto) 1.7 Anderson # (Auto) 0.9 Eos # (Auto) 0.3 Baso # (Auto) 0.0 Absolute Nucleated RBC 0.00 Nucleated RBC % 0.0 Sodium 141 Potassium 4.6 H Chloride 103 Carbon Dioxide 35 H Anion Gap 3.0 L BUN 21 H Creatinine 1.1 Estimated GFR (MDRD) 52 L Glucose 88 Calcium 9.3 Total Bilirubin 0.3 AST 9 L ALT 5 L Alkaline Phosphatase 52 Troponin I High Sens 4.8 B-Natriuretic Peptide 236 H Total Protein 7.5 Albumin 3.4 Globulin 4.1 Albumin/Globulin Ratio 0.8 L Lipase 32 Urine Color YELLOW Urine Clarity HAZY Urine pH 6.0 Ur Specific Spearman 1.025 Urine Protein 100 H Urine Glucose (UA) NEGATIVE Urine Ketones NEGATIVE Urine Occult Blood NEGATIVE Urine Nitrite POSITIVE H Urine Bilirubin NEGATIVE Urine Urobilinogen 0.2 (NORMAL) Ur Leukocyte Esterase SMALL H Urine RBC 0-5 Urine WBC 11-25 H Ur Squamous Epith Cells MOD Squamous H Urine Bacteria Many H Ur Microscopic Review INDICATED Urine Culture Comments NOT INDICATED Nasal Adenovirus (PCR) NOT DETECTED Nasal B. parapertussis DNA (PCR) NOT DETECTED Nasal Coronavir 229E PCR NOT DETECTED Nasal Coronavir HKU1 PCR DETECTED A Nasal Coronavir NL63 PCR NOT DETECTED Nasal Coronavir OC43 PCR NOT DETECTED Nasal Enterovir/Rhinovir PCR NOT DETECTED Nasal Influenza B PCR NOT DETECTED Nasal Influenza A PCR NOT DETECTED Nasal Parainfluen 1 PCR NOT DETECTED Nasal Parainfluen 2 PCR NOT DETECTED Nasal Parainfluen 3 PCR NOT DETECTED Nasal Parainfluen 4 PCR NOT DETECTED Nasal RSV (PCR) NOT DETECTED Nasal B.pertussis DNA PCR NOT DETECTED Nasal C.pneumoniae (PCR) NOT DETECTED Virgilio Human Metapneumo PCR NOT DETECTED Nasal M.pneumoniae (PCR) NOT DETECTED Nasal SARS-CoV-2 (PCR) NOT DETECTED Urine Opiates Screen NEGATIVE Ur Buprenorphine Scrn NEGATIVE Ur Oxycodone Screen NEGATIVE Urine Methadone Screen NEGATIVE Ur Barbiturates Screen NEGATIVE Ur Tricyclics Screen POSITIVE H Ur Phencyclidine Scrn NEGATIVE Ur Amphetamine Screen NEGATIVE U Methamphetamines Scrn NEGATIVE U Benzodiazepines Scrn NEGATIVE Urine Cocaine Screen NEGATIVE U Cannabinoids Screen POSITIVE H Ur Drug Screen Comment CUTOFF CONC BELOW: Rads (name of study) chest xray: Relevant Findings:: Prelim report reviewed and See rad report PD Medical Decision Making ED course Complexity details: reviewed results, re-evaluated patient, considered differential and d/w patient ED course: Unremarkable CBC, ER abdominal panel (minimal hyperkalemia, mildly elevated BUN with normal creatinine), normal hs-cTn. Mildly elevated BNP (236) without evidence of CHF on CXR (CXR interpreted by radiology as "no acute findings"). Respiratory PCR panel positive for coronavirus HKU1. Patient is given duoneb x 2 followed by albuterol neb but had supplemental oxygen requirement of no less than 2-3 liters/minute throughout ED stay to maintain pulse ox at/above 90%. Even after the three neb treatments (and 10mg IV decardon early in ED stay), pulse ox would consistenly drop to mid-80s on room air. As noted in HPI, patient denies supplemental oxygen at home and her med list from [facility] does not indicate outpatient supplemental oxygen requirement/rx. Plan is thus to admit to [facility]. Discharge Plan Discharge Patient Disposition: ED Place in Observation Condition: Stable Clinical Impression: Viral upper respiratory tract infection with cough, Asthma, moderate persistent, Acute exacerbation of extrinsic asthma, Hypoxemia Interventions: ED Admission Assessment Last Done: 06/02/24 12:15
[2024-06-02 05:14] LABS: BILIRUBIN,URINE NEGATIVE (NEGATIVE); GLUCOSE, URINE (UA) NEGATIVE (NEGATIVE); KETONES,URINE (UA) NEGATIVE (NEGATIVE); LEUKOCYTE ESTERASE, URINE SMALL (NEGATIVE); NITRITE,URINE POSITIVE (NEGATIVE); OCCULT BLOOD,URINE NEGATIVE (NEGATIVE); PROTEIN,URINE 100 mg/dL (NEGATIVE); UROBILINOGEN,URINE 0.2 (NORMAL) E.U./dL (NORMAL)
[2024-06-02 05:15] LABS: CLARITY,URINE HAZY (CLEAR)
[2024-06-02] MEDS: DEXAMETHASONE 10 MG/ML VIAL IVP STA (05:15)
[2024-06-02 05:20] LABS: BACTERIA,URINE Many /HPF (None Seen); RBC,URINE 0-5 /HPF (0-5); SQUAMOUS EPITHELIAL CELL,UR MOD Squamous (<= Few)
[2024-06-02] MEDS: IPRATROPIUM/ALBUTEROL 3 ML NEB INH STA ×2 (05:20→09:27)
[2024-06-02 05:22] LABS: BASOPHILS % (AUTO) 0.5 %; EOSINOPHILS # (AUTO) 0.3 10^3/uL (0.0-0.7); EOSINOPHILS % (AUTO) 3.2 %; HCT - HEMATOCRIT 42.8 % (37.0-47.0); HGB - HEMOGLOBIN 12.4 g/dL (12.0-16.0); LYMPHOCYTES # (AUTO) 1.7 10^3/uL (1.5-3.5); MEAN CORPUSCULAR HEMOGLOBIN 28.1 pg (27.0-31.0); MEAN CORPUSCULAR VOLUME 97.1 fL (81.0-99.0); MEAN PLATELET VOLUME 9.3 fL (7.9-10.8); MONOCYTES # (AUTO) 0.9 10^3/uL (0.0-1.0); MONOCYTES % (AUTO) 11.1 %; NEUTROPHILS # (AUTO) 5.1 10^3/uL (1.5-6.6); NEUTROPHILS % (AUTO) 63.5 %; PLT - PLATELET COUNT 160 10^3/uL (130-450); RED BLOOD COUNT 4.41 10^6/uL (4.20-5.40); RED CELL DISTRIBUTION WIDTH 15.4 % (12.0-15.0)
[2024-06-02 05:37] LABS: ALBUMIN 3.4 g/dL (3.2-5.5); ALBUMIN/GLOBULIN RATIO 0.8 (1.0-2.2); BILIRUBIN,TOTAL 0.3 mg/dL (0.2-1.0); CALCIUM 9.3 mg/dL (8.5-10.3); CREATININE 1.1 mg/dL (0.6-1.3); POTASSIUM 4.6 mmol/L (3.5-4.5); TOTAL PROTEIN 7.5 g/dL (6.4-8.9)
[2024-06-02 05:37] LABS: AMPHETAMINE SCREEN,URINE NEGATIVE (NEGATIVE); BARBITURATE SCREEN,UR NEGATIVE (NEGATIVE); BENZODIAZEPINES SCREEN, URINE NEGATIVE (NEGATIVE); BUPRENORPHINE SCREEN, URINE NEGATIVE (NEGATIVE); COCAINE SCREEN URINE NEGATIVE (NEGATIVE); METHADONE SCREEN, URINE NEGATIVE (NEGATIVE); METHAMPHETAMINES SCREEN, URINE NEGATIVE (NEGATIVE); OPIATE SCREEN, URINE NEGATIVE (NEGATIVE); OXYCODONE SCREEN, URINE NEGATIVE (NEGATIVE); THC CANNABINOID SCREEN, URINE POSITIVE (NEGATIVE); TRICYCLIC ANTIDEPRESSANT,URINE POSITIVE (NEGATIVE)
[2024-06-02 06:07] LABS: B. PARAPERTUSSIS- RESP PCR PAN NOT DETECTED; B. PERTUSSIS- RESP PCR PANEL NOT DETECTED; C. PNEUMONIAE- RESP PCR PANEL NOT DETECTED; CORONAVIRUS 229E-RESP PCR NOT DETECTED; CORONAVIRUS HKU1-RESP PCR DETECTED; CORONAVIRUS NL63-RESP PCR NOT DETECTED; CORONAVIRUS OC43-RESP PCR NOT DETECTED; HUMAN METAPNEUMOVIRUS NOT DETECTED; INFLUENZA A- RESP PCR PANEL NOT DETECTED; INFLUENZA B - RESP PCR PANEL NOT DETECTED; M. PNEUMONIAE- RESP PCR PANEL NOT DETECTED; PARAINFLUENZA VIRUS 1 NOT DETECTED; PARAINFLUENZA VIRUS 2 NOT DETECTED; PARAINFLUENZA VIRUS 4 NOT DETECTED; RHINOVIRUS/ENTEROVIRUS NOT DETECTED; RSV- RESP PCR PANEL NOT DETECTED; SARS-CoV-2 -RESP PCR PANEL NOT DETECTED
[2024-06-02] MEDS: DEXAMETHASONE 10 MG/ML VIAL PO STA (07:26)
[2024-06-02] MEDS: CHERRY SYRUP 10 ML UDC PO ONE (07:26)
--- NOTE | 2024-06-02 08:02 | XRAY Report ---
PROCEDURE: XR Chest 1V INDICATIONS: dyspnea TECHNIQUE: One view of the chest was acquired. COMPARISON: 04/11/2024. FINDINGS: Surgical changes and devices: None. Lungs and pleura: No pleural effusions or pneumothorax. No consolidation. Mediastinum: Mediastinal contours appear normal. Heart size is normal. Bones and chest wall: No suspicious bony lesions. Overlying soft tissues appear unremarkable. IMPRESSION: No acute cardiopulmonary process. Findings are concordant with preliminary interpretation provided by [facility]. Reviewed by: Cole Mcallister MD on 06/02/2024 8:01 AM PST Approved by: Cole Mcallister MD on 06/02/2024 8:01 AM PST Station ID: [id number]
[2024-06-02] MEDS: ALBUTEROL NEB 2.5 MG/3 ML INH STA (10:23)
--- NOTE | 2024-06-02 12:21 | HISTORY & PHYSICAL EXAMINATION ---
Chief Complaint Chief Complaint Chief Complaint: cough History of Present Illness Admitted From Admitted From:: Emergency Department History Obtained From History obtained from: Patient History of Present Illness HPI Comment/Other: 53-year-old female with history of asthma and type 2 diabetes mellitus presents with asthma exacerbation. She reports feeling sick for 2-3 days with symptoms worsening. She notes wet cough without bloody sputum, shortness of breath, increased wheezing, maxillary sinus pressure, intermittent mild headache, and mild chest discomfort with excessive coughing. She denies fever, chills, nausea, vomiting, diarrhea, ear pain, abdominal discomfort. Per EMS report, she was found unconscious this morning with apneic breathing and SpO2 in 70s and 80s even on maximum of 6L oxygen via nasal cannula. Staff at her home facility also reported to EMS that she has been falling more frequently for the past few days. This is why she was brought to the ED today. She was found in ED to have a UTI with UA positive for protein, nitrates, and leukocyte esterase. She reports frequent UTIs but notes she rarely has symptoms of UTI. She was treated in March 2024 for urosepsis, treated successfully with IV Rocephin and PO Macrobid. She does feel that symptoms resolved fully after treatment. She denies dysuria, change in urinary frequency or urgency, vaginal itching or discharge, or concern for STI/STD. She reports that she fell in the bath about 3 days ago and hurt her left foot. She is nonambulatory at baseline and uses a wheelchair for transportation, but she is able to pivot transfer. She has pain, swelling, and bruising of left 2nd- 4th toes, tenderness to the top of the foot, and tenderness to the left ankle. Active ROM is intact. She states this has not been looked at or addressed by a provider, but she is in pain and would like the foot looked at now. She denies head injury, loss of consciousness, numbness or tingling of the lower extremities, saddle anesthesia, urinary or fecal incontinence or retention. She has a history of type 2 diabetes mellitus which she does not take any medication for. She reports diabetes is well-controlled with diet management. She smokes 1 pack of cigarettes per day and is not interested in decreasing or stopping. She also smokes marijuana but denies other illicit drug use or alcohol use. She lives at [facility], as does her boyfriend Will. She is very interested in getting home to be with Will again, as he is a very nice and supportive figure in her life. Meds/Allgy Home Medications Ambulatory Orders Medication Instructions Recorded Confirmed acetaminophen 500 mg tablet 500 mg PO QID PRN Pain #50 tabs 10/14/23 06/02/24 (Acetaminophen Extra Strength) budesonide-formoterol HFA 80 1 inh inhalation BID #10.2 grams 02/04/24 06/02/24 mcg-4.5 mcg/actuation aerosol inhaler (Breyna) ibuprofen 600 mg tablet (IBU) 600 mg PO Q6H PRN pain 04/12/24 06/02/24 quetiapine 300 mg tablet 300 mg PO HS 04/12/24 06/02/24 trazodone 300 mg tablet 300 mg PO HS 04/12/24 06/02/24 albuterol sulfate 90 mcg/actuation 1 - 2 puff inhalation Q4HR PRN 05/06/24 06/02/24 aerosol inhaler (Ventolin HFA) Shortness Of Air/Wheezing #1 ea citalopram 20 mg tablet 20 mg PO DAILY #90 tabs 05/07/24 06/02/24 divalproex 250 mg tablet,delayed 250 mg PO BID #180 tabs 05/07/24 06/02/24 release pregabalin 150 mg capsule (Lyrica) 150 mg PO BID #180 caps 05/24/24 06/02/24 Allergies Allergies Allergy/AdvReac Type Severity Reaction Status Date / Time No Known Drug Allergies Allergy Verified 06/02/24 04:40 PFSH Active Problems All Active Problems (Updated 06/02/24 @ 13:01 by Courtney Calero) UTI (urinary tract infection) (Acute) Injury of left foot (Acute) Hypoxemia (Acute) Acute exacerbation of extrinsic asthma (Acute) Viral upper respiratory tract infection with cough (Acute) PTSD (post-traumatic stress disorder) (Acute) Sepsis (Acute) DM2 (diabetes mellitus, type 2) (Acute) Hyperkalemia (Acute) Preventative health care (Acute) Wheelchair dependent (Chronic) Chronic pain (Chronic) Generalized anxiety disorder (Chronic) Bipolar 2 disorder (Chronic) Essential (primary) hypertension (Chronic 07/13/07) Asthma, moderate persistent (Chronic 10/22/06) Medical History Medical History Closed comminuted supracondylar fracture of femur Reactive depression (situational) Accidental fall from wheelchair Illicit drug use Femur fracture, left Anxiety and depression Hypothermia Left shoulder strain Postoperative hypovolemic shock Osteomyelitis Infected prosthetic hip left hip Septic arthritis Right knee buckling s/p injury/infection, cannot stand on this leg Anemia, iron deficiency (11/26/06) Pyelonephritis, acute (11/20/06) Psoriasis (11/20/06) Migraine with aura (10/22/06) Displaced oblique fracture of shaft of humerus, left arm, initial encounter for closed fracture (05/25/20) Diabetes mellitus with hyperglycemia (11/20/06) Concussion injury of brain Surgical History Surgical History Hx of inguinal hernia repair right Hx of cholecystectomy Hx of appendectomy Hx of lithotripsy 2007 History of left hip replacement revision due to osteomyelitis, [place], 2016 Hx of bilateral hip replacements Family History Family History Mother Diabetes Heart failure Father Diabetes Heart failure Social History Social History Smoking Status: Current every day smoker Number of Years Smoked: 30 How many cigarettes a day do you smoke? (20 cigarettes=1 Pk): 10 Second hand tobacco smoke exposure: Yes Do you dip or chew tobacco?: No Do you vape?: No Patient requests smoking cessation consult: No Initiate information on smoking cessation: No Living arrangement: Assisted living Relationship: Level: Independent Home Mobility Equipment: Wheelchair Physical - Functional Details: Pivots for transfers. Do you feel safe in your home environment?: Yes Suffered physical, verbal, emotional, or financial abuse?: No History of Abuse: No ETOH Use: None Substance Use: cannabis (any form) POLST Patient has POLST: No POLST Status: Full Code Review of Systems Status of ROS: 10 or more systems reviewed and unremarkable except as noted in history and below Cardiovascular Reports: shortness of breath with exertion Respiratory Reports: Shortness of breath, Cough, Sputum production and Wheezing; Denies: Coughing up blood Musculoskeletal Reports: Back pain (chronic back apin) and Extremity pain (L foot and ankle pain) Neurological Reports: Headache Allergic/Immunologic Reports: Wheezing Prior Level of Functionality: Nonambulatory, uses wheelchair and can pivot transfer. Exam Exam Tere is laying in bed, appears comfortable. Frequent dry coughs throughout conversation and exam. She is able to speak in full sentences without difficulty. Constitutional normal general appearance, no apparent distress, abnormal body habitus (obese) and alert HENMT normocephalic, head/scalp atraumatic and hearing grossly normal bilaterally Eyes PERRL and EOMs intact bilaterally Neck/C-Spine visual inspection normal Chest inspection of chest normal Respiratory breath sounds equal bilaterally, normal respiratory effort, auscultation abnormal and wheezing noted (expiratory wheezes) Cardiovascular normal heart rate noted, regular rhythm noted, no JVD and no edema Gastrointestinal abdomen normal to inspection, abdomen soft to palpation, nontender to palpation and nondistended Genitourinary no CVA tenderness Back/Pelvis Chronic back pain worse with propping herself up in bed. No acute pain to palpation of lumbar spine, paraspinal muscles, or flank. Extremities Left ankle tenderness anteriorly, but not at lateral or medial malleolus. Bruising and swelling of left 2nd-5th toes with exquisite pain on light palpation. No tenderness or abnormality of sole of foot or great toe. Full ROM of both ankles and toes. Nonweightbearing at baseline. Neurology promotions assistant II-XII intact and speech normal Psychiatry oriented x3, cooperative, affect normal and psychomotor activity normal Conclusion/Plan Problem List (1) Acute exacerbation of extrinsic asthma: Plan: No acute respiratory distress. Currently on 2L oxygen via nasal cannula with saturation 94% after breathing treatments in ED (DuoNeb x 2, Decadron PO x2, and Albuterol x1). Continuing bilateral diffuse wheezes, expiratory > inspiratory. Chest XR is negative for acute cardiopulmonary changes. - PRN 2L oxygen on nasal cannula for SpO2 <88% - Duoneb q6h - Albuterol PRN q2h - Budesonide BID - Formoterol BID - IV Solumedrol q8h for 3 doses (2) Viral upper respiratory tract infection with cough: Plan: She tested positive for non-COVID coronavirus HKU1. Afebrile, vital signs stable. Treating cough as above. Symptom management with Tylenol and Claritin. (3) Acute hypoxemic respiratory failure: Plan: SpO2 was in the 70s and 80s on maximum of 6L oxygen per EMS report. Saturation has been in high 80s to low 90s while in ED on 2L oxygen via nasal cannula. - Continue supplemental oxygen via nasal cannula (4) DM2 (diabetes mellitus, type 2): Plan: Glucose 88 in ED. She does not take any DM medications at home. Giving steroids, anticipate glucose will become uncontrolled. We will monitor with finger stick glucose tests prior to eating and low-dose sliding scale insulin. Qualifiers: Diabetes mellitus complication status: with other specified complication Diabetes mellitus mcfp insulin use: unspecified mcfp insulin use status Qualified Code(s): E11.69 - Type 2 diabetes mellitus with other specified complication (5) Essential (primary) hypertension: Plan: Stable. Chronic condition. She does not take any HTN medications at home. - Monitor with daily BP (6) Bipolar 2 disorder: Plan: Chronic, stable. - Continue home medications of seroquel, trazodone, divalproex, and citalopram. (7) Injury of left foot: Plan: Left ankle and foot pain since fall in bath about 3 days ago, which has not been addressed per patient. Nonweightbearing at baseline. Exquisite pain to left 2nd- 5th toes on physical exam along with bruising and swelling. Denies head injury or loss of consciousness. - XR left ankle and foot - Tylenol PRN for pain (8) UTI (urinary tract infection): Plan: UA positive for protein, nitrates, and leukocyte esterase. She is currently asymptomatic. Previous urosepsis (03/2024) treated with IV Rocephin and then PO Macrobid. - Start PO Macrobid x 3 days Lab Results 06/02/24 05:12 06/02/24 05:12
[2024-06-02] MEDS ORDERED: ACETAMINOPHEN 325 MG TABLET PO PRN (12:26)
[2024-06-02] MEDS ORDERED: ALBUTEROL NEB 2.5 MG/3 ML INH PRN (12:26)
[2024-06-02] MEDS ORDERED: SODIUM CHLORIDE FLUSH 0.9% 10 ML SYRINGE IVP PRN (12:26)
[2024-06-02] MEDS ORDERED: ONDANSETRON ODT 4 MG TABLET TL PRN (12:26)
[2024-06-02] MEDS ORDERED: ONDANSETRON 4 MG/2 ML VIAL IVP PRN (12:26)
--- NOTE | 2024-06-02 13:53 | PHARMACY PROGRESS NOTE ---
Best Possible Medication History Admit Date and Time: 06/02/24 [id number] Home Medications Medication Instructions Recorded Confirmed Type acetaminophen 500 mg tablet 500 mg PO QID PRN Pain #50 tabs 10/14/23 06/02/24 Rx (Acetaminophen Extra Strength) budesonide-formoterol HFA 80 1 inh inhalation BID #10.2 grams 02/04/24 06/02/24 Rx mcg-4.5 mcg/actuation aerosol inhaler (Breyna) ibuprofen 600 mg tablet (IBU) 600 mg PO Q6H PRN pain 04/12/24 06/02/24 History quetiapine 300 mg tablet 300 mg PO HS 04/12/24 06/02/24 History trazodone 300 mg tablet 300 mg PO HS 04/12/24 06/02/24 History albuterol sulfate 90 mcg/actuation 1 - 2 puff inhalation Q4HR PRN 05/06/24 06/02/24 Rx aerosol inhaler (Ventolin HFA) Shortness Of Air/Wheezing #1 ea citalopram 20 mg tablet 20 mg PO DAILY #90 tabs 05/07/24 06/02/24 Rx divalproex 250 mg tablet,delayed 250 mg PO BID #180 tabs 05/07/24 06/02/24 Rx release pregabalin 150 mg capsule (Lyrica) 150 mg PO BID #180 caps 05/24/24 06/02/24 Rx Processed by: Pharmacy (Medication Reconciliation completed by Pharmacy Technpreston Guy) Medications reviewed in ED?: No Medication History completed: Yes Patient Interview: Pt unable to participate Secondary Source(s): Facility [facility] as ONLY source ([facility]) [facility] Statement: As the person ultimately responsible for medication therapy, providers are able to order a medication from an existing home medication list in [facility] via the "Reconcile Routine" prior to Confirmation of that medication by direct support staff. Such practice is discouraged except when the physician, in their clinical judgment, deems that a medical need exists for a medication without regard to previous use.
[2024-06-02] MEDS: methylPREDNISolone SUCCINATE 40 MG/ML VIAL IVP SCH (14:07)
[2024-06-02] MEDS: IPRATROPIUM/ALBUTEROL 3 ML NEB INH SCH (15:30)
[2024-06-02] MEDS: SODIUM CHLORIDE FLUSH 0.9% 10 ML SYRINGE IVP SCH (20:27)
[2024-06-02] MEDS: traZODone 50 MG TABLET PO SCH (20:27)
[2024-06-02] MEDS: PREGABALIN 25 MG CAPSULE PO SCH (20:28)
[2024-06-02] MEDS: QUEtiapine 100 MG TABLET PO SCH (20:28)
[2024-06-02] MEDS: DIVALPROEX DR 250 MG TABLET PO SCH (20:28)
[2024-06-02] MEDS: PREGABALIN 100 MG CAPSULE PO SCH (20:29)
[2024-06-02] MEDS: FORMOTEROL FUMARATE NEB 20 MCG/2 ML INH SCH (20:45)
[2024-06-02] MEDS: BUDESONIDE 0.5 MG/2 ML NEB INH SCH (20:56)
--- NOTE | 2024-06-02 21:22 | XRAY Report ---
PROCEDURE: XR Foot 3+V LT INDICATIONS: fall with L foot injury and pain TECHNIQUE: 3 views of the foot were acquired. COMPARISON: Left foot x-ray 10/21/2018 FINDINGS: Diffuse osseous demineralization. Acute-subacute obliquely oriented fracture of the 5th metatarsal sh aft without intra-articular extension. Otherwise, minimal hallux valgus with lateralization of the chand llux sesamoids. Mild 1st MTP osteophytes. The Lisfranc interval is preserved on nonweightbearing view . IMPRESSION: Acute-subacute, oblique oriented 5th metatarsal shaft fracture. Reviewed by: Yang Montez MD on 06/02/2024 9:21 PM PST Approved by: Yang Montez MD on 06/02/2024 9:21 PM PST Station ID: [id number]
[2024-06-03] MEDS ORDERED: ZINC OXIDE 20% OINT 30 GM TUBE TOP PRN (05:04)
[2024-06-03 06:05] LABS: CALCIUM 8.8 mg/dL (8.5-10.3); POTASSIUM 5.1 mmol/L (3.5-4.5)
[2024-06-03 06:29] LABS: BASOPHILS % (AUTO) 0.1 %; HCT - HEMATOCRIT 42.1 % (37.0-47.0); HGB - HEMOGLOBIN 12.3 g/dL (12.0-16.0); LYMPHOCYTES # (AUTO) 0.9 10^3/uL (1.5-3.5); LYMPHOCYTES % (AUTO) 11.2 %; MEAN CORPUSCULAR HEMOGLOBIN 28.3 pg (27.0-31.0); MEAN CORPUSCULAR HGB CONC 29.2 g/dL (32.0-36.0); MEAN CORPUSCULAR VOLUME 96.8 fL (81.0-99.0); MEAN PLATELET VOLUME 9.6 fL (7.9-10.8); MONOCYTES # (AUTO) 0.4 10^3/uL (0.0-1.0); MONOCYTES % (AUTO) 4.7 %; NEUTROPHILS # (AUTO) 6.7 10^3/uL (1.5-6.6); NEUTROPHILS % (AUTO) 82.9 %; PLT - PLATELET COUNT 145 10^3/uL (130-450); RED BLOOD COUNT 4.35 10^6/uL (4.20-5.40); RED CELL DISTRIBUTION WIDTH 14.8 % (12.0-15.0); WHITE BLOOD COUNT 8.1 x10^3/uL (4.8-10.8)
[2024-06-03] MEDS: guaiFENesin 600 MG TABLET PO SCH (08:18)
[2024-06-03] MEDS: CITALOPRAM HYDROBROMIDE 20 MG TABLET PO SCH (08:18)
[2024-06-03] MEDS: oxyCODONE 5 MG TABLET PO PRN (12:28)
--- NOTE | 2024-06-03 17:56 | PROVIDER PROGRESS NOTE ---
Progress Note Progress Note Progress Note: June 03, 2024 5 PM I spoke to her at length this morning. Advance care planning conversation was held because she made comments about "maybe this is my time to ", and "I want to leave, I do not want to be here". Please see that dictation under separate note. As for her reason for admission which is acute exacerbation of asthma, she continues to have severe coughing spasms. While her oxygenation has improved, and she continues to require 2 L. In the ER she was requiring 8 L, then down to 3 L. Back up to 4 L last night and as of 11 this morning. By this afternoon she is down to 2 L. Any conversation results and coughing spasm. Phlegm is c opious thick and yellow. But no hemoptysis. She continues to wheeze. Exam: Temperature 36.8, heart rate is 80, respirations 20, 93 pulse, blood pressure 141/81. She is a short statured middle-aged female 5 foot 4, 133 kg. Severely nasal tone of voice, severe coughing spasms, hoarse voice, rhinorrhea, neck has shotty adenopathy but is supple Continues to have diffuse faint wheezing. No use of accessory muscles. She is not tripoding. But speaking induces the coughing spasms so I end up having to have her answer in yes no to avoid the coughing. It is very severe. Regular rate and rhythm Abdomen is soft, nontender, hypoactive Extremities without edema Neurologically she is alert and oriented person, place, time and situation. No focal deficits. Able to sit up, put her feet on the side of the bed and stand if she needs to. I reviewed her labs and potassium is 5.1. She was 4.6 yesterday. Hyperkalemia appears to be a chronic problem for her. She is not on spironolactone. BUN is 23, creatinine 1.0. Stable from yesterday. Fasting glucose is 169. CBC has a hemoglobin of 12.3. White cell count is 8.1. Stable from yesterday. Foot x-ray was done for that left foot pain and she has an acute/subacute obliquely oriented fracture of the fifth metatarsal shaft without intra- articular extension. Assessment/plan (1) Acute exacerbation of extrinsic asthma: Plan: Her presentation that was that of being unresponsive, having apneic episodes. Taken by EMS to the ER where they quickly corrected her hypoxemia and severe respiratory distress. By the time she got to [facility] last night, her respiratory distress had improved. While her hypoxemia has definitely improved today, she still has diffuse wheezing, severe coughing spasms and I am going to change her from observation status to inpatient status. Currently on 2L oxygen via nasal cannula with saturation 94% after breathing treatments in ED (DuoNeb x 2, Decadron PO x2, and Albuterol x1). Chest XR is negative for acute cardiopulmonary changes. I am continuing: - PRN 2L oxygen on nasal cannula for SpO2 <88% - Duoneb q6h - Albuterol PRN q2h - Budesonide BID - Formoterol BID - IV Solumedrol q8h for 3 doses that stops today I will add mucinex. If she can't stop the coughing spasms before I leave shift, I will add Cody AC to see if she can sleep tonight. (2) Viral upper respiratory tract infection with cough: Plan: She tested positive for non-COVID coronavirus HKU1. Afebrile, vital signs stable. Treating cough as above. Symptom management with Tylenol and Claritin. I will add Cody AC if cough not controlled this evening. (3) Acute hypoxemic respiratory failure: Plan: SpO2 was in the 70s and 80s on maximum of 6L oxygen per EMS report. Saturation has been in high 80s to low 90s while in ED on 2L oxygen via nasal cannula.She then required 4 L last night. And this morning. By this afternoon she is back down to 2 L. - Continue supplemental oxygen via nasal cannula. She says that if her cough and wheezing are controlled, she would like to go back to [facility] on 02. (4) DM2 (diabetes mellitus, type 2): Plan: Glucose 88 in ED. She does not take any DM medications at home. Giving steroids, I anticipate her glucose will become uncontrolled. I am monitoring her glucose before meals and giving her lispro for sliding scale. Glucose is controlled today with that management. This morning glucose was 169. Qualifiers: Diabetes mellitus complication status: with other specified complication Diabetes mellitus intermediate insulin use: unspecified intermission coordinator insulin use status Qualified Code(s): E11.69 - Type 2 diabetes mellitus with other specified complication (5) Essential (primary) hypertension: Plan: Stable. Chronic condition. She does not take any HTN medications at home. - Monitor with daily BP. Today she is 135/88, 121/68, 141/81. I will not be adding medications. (6) Bipolar 2 disorder: Plan: Chronic, stable. - Continue home medications of seroquel, trazodone, divalproex, and citalopram. (7) Injury of left foot>Fracture of 5th metatarsal Plan: Left ankle and foot pain since fall in bath about 3 days ago, which has not been addressed per patient. Nonweightbearing at baseline. Exquisite pain to left 2nd- 5th toes on physical exam along with bruising and swelling. Denies head injury or loss of consciousness. - reassured it's not an ankle fx. Not much to do for the toe. - Tylenol PRN for pain (8) UTI (urinary tract infection): Plan: UA positive for protein, nitrates, and leukocyte esterase. She is currently asymptomatic. Previous urosepsis (03/2024) treated with IV Rocephin and then PO Macrobid. - Start PO Macrobid x 3 days. Today is day 2/3
--- NOTE | 2024-06-03 20:21 | ADVANCE CARE PLANNING NOTE ---
Advance Care Planning Planning Encounter Date: 06/03/24 Time: 08:00 Purpose: Establish CODE STATUS Parties in Attendance: Hospitalist and patient Decisional Capacity of the Patient: Alert and oriented to person, place, time and situation Diagnosis for Encounter (1) Acute exacerbation of extrinsic asthma: Encounter Subjective/Patient's Story: She is not from this area. She has been most of her adult life outside of [facility]. 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 When I asked who was present in her life that I would have to speak to if she was unconscious, she initially told me there was no one. She did not having siblings, children, cousins, best friends, or any support group. But as the conversation went on, it became apparent that she had some people but is frustrated about being here, and keeps on saying she wants to leave even if she has to to do it. I told her that the reason we were having this conversation was that statement. If she really wanted to and did not want to have treatment, I could make arrangements that and allow her to peacefully in her own bed. But I really wanted to explore that philosophy and make sure that she knew what she was talking about. From [place] she came here. She had a fight with a long-term roommate and decided to garbage pick up worker bruits and come to [facility] to be close to her only living relative, her brother. She feels like life has been really hard to her body and she really just cannot work anymore. She is achy, tired. But when she came to [place], it was kind of a surprise for her brother, and he did not have a place for her to live. So she ended up on the streets for a few months. She fell outside of the [facility] in and shattered her right shoulder which then resulted in her getting treated in the hospital. And from the hospital [facility] I asked if her brother was her DPOA and she says that she does not know. She really pissed him off when she had not paid a bill at [facility] for 3 months and he had to pay it. So she tries not to get in his way anymore. She does have a boyfriend at [facility]. "He is an older lazaro" and he does have his issues. But she likes to hang out with him. Her most favorite thing to do on a daily basis is to get stoned with weed. She really does not do much more. She does watch TV, she does not read books, she does not do anything for entertainment other than hanging out at [facility]. Her mobility is limited by the shoulder. And hip and back pain. She is wheelchair dependent. She has a nonfunctioning hip. She does not describe of [place] procedure but spends most of her time in the wheelchair at the assisted living facility. She does need help sometimes getting out of a chair to get a bath and get dressed. She has decided that she really should get a DPOA after speaking to me. Right now if I were to ask her, she says that her brother would be the person I would contact if she were unconscious and could not speak for herself. This had us kaw back to her statement that she was ready to and did not want any more treatment, and she realized that she was just frustrated. She felt like the assisted living facility went behind her back and getting her he re. She had already been seen by the ambulance services once yesterday, and she felt like they waited for her to go to sleep and they called ambulance again. I explained to her that she was found unresponsive, with apneic breathing, and very low oxygen sats. If they had not called the ambulance she would have . She became tearful. She stated that she was just frustrated. And realized jaswinder t she really is not ready to . She does want to be brought back to the hospital and treated if treatment is needed. If I need to give her blood, antibiotics, surgery, she is willing to undergo those things to still be here and enjoy the little life she has left. So she wants me to note that she does want to be a full code. Objective/Medical Story: 53-year-old female with history of asthma and type 2 diabetes mellitus presents with asthma exacerbation. She reports feeling sick for 2-3 days with symptoms worsening. She notes wet cough without bloody sputum, shortness of breath, increased wheezing, maxillary sinus pressure, intermittent mild headache, and mild chest discomfort with excessive coughing. She denies fever, chills, nausea, vomiting, diarrhea, ear pain, abdominal discomfort. Per EMS report, she was found unconscious this morning with apneic breathing and SpO2 in 70s and 80s even on maximum of 6L oxygen via nasal cannula. Staff at her home facility also reported to EMS that she has been falling more frequently for the past few days. This is why she was brought to the ED today. She was found in ED to have a UTI with UA positive for protein, nitrates, and leukocyte esterase. She reports frequent UTIs but notes she rarely has symptoms of UTI. She was treated in March 2024 for urosepsis, treated successfully with IV Rocephin and PO Macrobid. She does feel that symptoms resolved fully after treatment. She denies dysuria, change in urinary frequency or urgency, vaginal itching or discharge, or concern for STI/STD. She reports that she fell in the bath about 3 days ago and hurt her left foot. She is nonambulatory at baseline and uses a wheelchair for transportation, but she is able to pivot transfer. She has pain, swelling, and bruising of left 2nd- 4th toes, tenderness to the top of the foot, and tenderness to the left ankle. Active ROM is intact. She states this has not been looked at or addressed by alicia falcon, but she is in pain and would like the foot looked at now. She denies head injury, loss of consciousness, numbness or tingling of the lower extremities, saddle anesthesia, urinary or fecal incontinence or retention. She has a history of type 2 diabetes mellitus which she does not take any medication for. She reports diabetes is well-controlled with diet management. She smokes 1 pack of cigarettes per day and is not interested in decreasing or stopping. She also smokes marijuana but denies other illicit drug use or alcohol use. She lives at [facility], as does her boyfriend Will. She is very interested in getting home to be with Will again, as he is a very nice and supportive figure in her life. This morning she is still having coughing spasms, requiring 2 L nasal clinic, and diffuse wheezing. I am changing her from observation status to inpatient status and keeping her 1 more day. She initially said that she was going to leave. And did not want to stay. But after having the above conversation, she has agreed to stay 1 more day. Goals of Care: Get back to [facility]. She likes living there. She likes her boyfriend. She is amenable to getting treatment if she were to get sick again Plan: 1. Change CODE STATUS to full code 2. Fill out a POLST form to that and 3. I have asked her to get a DURABLE POWER OF POLITICAL DIRECTOR. Talk to her brother. Discussed what her life care goals are. And see if he is willing to be her DURABLE POWER OF POLITICAL DIRECTOR if 1 was needed. Code Status: Attempt Resuscitation Time spent on advance care plannin minutes
[2024-06-03] MEDS: INSULIN LISPRO 300 UNIT/3 ML PEN SUBQ SCH (20:32)
[2024-06-04 01:15] VITALS: TEMP 97.7
[2024-06-04 05:45] LABS: BASOPHILS % (AUTO) 0.1 %; HCT - HEMATOCRIT 41.3 % (37.0-47.0); HGB - HEMOGLOBIN 11.9 g/dL (12.0-16.0); LYMPHOCYTES # (AUTO) 0.9 10^3/uL (1.5-3.5); LYMPHOCYTES % (AUTO) 8.2 %; MEAN CORPUSCULAR HGB CONC 28.8 g/dL (32.0-36.0); MEAN CORPUSCULAR VOLUME 97.2 fL (81.0-99.0); MONOCYTES # (AUTO) 0.4 10^3/uL (0.0-1.0); MONOCYTES % (AUTO) 3.9 %; NEUTROPHILS # (AUTO) 9.6 10^3/uL (1.5-6.6); NEUTROPHILS % (AUTO) 87.1 %; PLT - PLATELET COUNT 156 10^3/uL (130-450); RED BLOOD COUNT 4.25 10^6/uL (4.20-5.40)
[2024-06-04 06:12] LABS: CALCIUM 8.5 mg/dL (8.5-10.3); POTASSIUM 5.4 mmol/L (3.5-4.5)
[2024-06-04 08:48] LABS: ESTIMATED AVERAGE GLUCOSE 120 mg/dL (70-100); HEMOGLOBIN A1c% 5.8 % (4.27-6.07)
[2024-06-04 09:19] VITALS: BP 154/93; O2SAT 94
[2024-06-04] MEDS: AZITHROMYCIN 250 MG TABLET PO STA (11:18)
[2024-06-04] MEDS: guaiFENesin/CODEINE 5 ML UDC PO PRN (14:34)
--- NOTE | 2024-06-05 07:58 | Discharge Summary ---
Discharge Summary Admit Date: 06/02/24 Discharge Date: 06/04/24 Discharging Provider: Regina Page MD Primary Care Provider: VLADIMIR Ramirez Code Status: Attempt Resuscitation Discharge Facility Name: [facility] DIAGNOSES Discharge Diagnoses with Status of Each Condition: 1. Acute exacerbation of extrinsic asthma 2. Viral upper respiratory infection 3. Acute hypoxic respiratory failure 4. Controlled type 2 diabetes mellitus, without complication, without long-term use of insulin 5. Hypertension 6. Bipolar disorder 7. Fracture of left fifth metatarsal 8. UTI HPI History of Present Illness: 53-year-old female with history of asthma and type 2 diabetes mellitus presents with asthma exacerbation. She reports feeling sick for 2-3 days with symptoms worsening. She notes wet cough without bloody sputum, shortness of breath, increased wheezing, maxillary sinus pressure, intermittent mild headache, and mild chest discomfort with excessive coughing. She denies fever, chills, nausea, vomiting, diarrhea, ear pain, abdominal discomfort. Per EMS report, she was found unconscious this morning with apneic breathing and SpO2 in 70s and 80s even on maximum of 6L oxygen via nasal cannula. Staff at her home facility also reported to EMS that she has been falling more frequently for the past few days. This is why she was brought to the ED today. She was found in ED to have a UTI with UA positive for protein, nitrates, and leukocyte esterase. She reports frequent UTIs but notes she rarely has symptoms of UTI. She was treated in March 2024 for urosepsis, treated successfully with IV Rocephin and PO Macrobid. She does feel that symptoms resolved fully after treatment. She denies dysuria, change in urinary frequency or urgency, vaginal itching or discharge, or concern for STI/STD. She reports that she fell in the bath about 3 days ago and hurt her left foot. She is nonambulatory at baseline and uses a wheelchair for transportation, but she is able to pivot transfer. She has pain, swelling, and bruising of left 2nd- 4th toes, tenderness to the top of the foot, and tenderness to the left ankle. Active ROM is intact. She states this has not been looked at or addressed by a provider, but she is in pain and would like the foot looked at now. She denies head injury, loss of consciousness, numbness or tingling of the lower extremities, saddle anesthesia, urinary or fecal incontinence or retention. She has a history of type 2 diabetes mellitus which she does not take any medication for. She reports diabetes is well-controlled with diet management. She smokes 1 pack of cigarettes per day and is not interested in decreasing or stopping. She also smokes marijuana but denies other illicit drug use or alcohol use. She lives at [facility], as does her boyfriend Will. She is very interested in getting home to be with Will again, as he is a very nice and supportive figure in her life. CONSULTS | PROCEDURES Procedures: Chest x-ray is without acute cardiopulmonary process. Left foot x-ray with an acute subacute oblique oriented fifth metatarsal shaft fracture HOSPITAL COURSE Hospital Course: I had to remind her that her presentation was that of being unresponsive and having apneic episodes. I explained that to her because she was very angry that ambulance was called to bring her to the hospital. She immediately wanted to be discharged when she was awake and alert on 06/03. But I explained to her that her lungs were very sick with asthma. She could from this. She then had conversations with me where she felt like it was okay to ," maybe it was her time". But after having an advance care planning conversation she realized that she is not ready to yet. she wants to be a full code and she wants to keep on coming back to the hospital if it is necessary for illness. POLST was filled out after an ACP. When she was brought to [facility] from ER patient was continued on oxygen, DuoNebs, albuterol as needed, budesonide inhaled twice daily, and formoterol inhaled twice daily. She received 3 doses of IV Solu-Medrol. I also added Mucinex and a dose of Robitussin AC. While she did improve and was alert and no longer encephalopathic, she had tremendous coughing and wheezing even on the second day. Coughing spasms were severe. But I had made her promise that I would discharge her after 2 days and she wanted me to keep to my promise. I explained to her that it was not a good idea, that she still had enough exacerbation that she needed continued IV steroids and scheduled nebulizers. She was also positive for non-COVID coronavirus. She felt like she was stable to go home. We had to do oxygen desat test because she still had acute hypoxemic respiratory failure. She was requiring 2 L nasal cannula. As such she was discharged on 2 L. I also discharged on azithromycin 250 mg p.o. daily. Her diabetes was controlled in spite of steroids. Blood pressure did not require any treatment. And we continued her Seroquel, trazodone, divalproex and citalopram for her bipolar disorder. She was noted to have a left foot fifth toe fracture. I spoke to orthopedics who recommends a cam boot until the toe is healed. She can been seen in the outpatient setting for follow-up. Urine was positive for infection with protein, nitrates and leukocyte Estrace. She was given 3 days of Macrobid.I asked her to please follow-up with her primary care provider in the next few days.I also asked her to stop smoking tobacco and marijuana. At least stop for the next few weeks so that her lungs could heal. She is discharged in fair condition. Coughing spasms are severe. When they happen her face turns beet red. She is still congested, having some rhinorrhea and coryza. Temperature is 36.5. Heart rate is 82. Respirations are 22. 94% O2 sat on 2 L. Blood pressure 154/93. She is a short statured morbidly obese white female who is disheveled. Some of her front teeth are missing. But she is alert and oriented person, place, time and situation. She is hoarse. Lungs still have faint scattered wheezing but no use of accessory muscles, no tripoding. Regular rate and rhythm. And abdomen that is obese, soft, nontender. Some early changes of Sharri underneath her intertriginous folds that have asked her to make sure she treats with a bath, and powder. The fifth left toe along the lateral aspect of her foot hurts. Right and left toes are bluish and bruised. She says that she fell in the tub at her residential facility. She can follow commands. Is able to sit up in bed on her own. However she does not stand because she is previous hip injury and prefers to be in a chair or wheelchair. Greater than 30 minutes spent coordinating discharge This document was made in part using voice recognition software. While efforts are made to proofread this document, sound alike and grammatical errors may occur. ALLERGIES Allergies Allergy/AdvReac Type Severity Reaction Status Date / Time No Known Drug Allergies Allergy Verified 06/07/24 01:54 MEDICATIONS Ambulatory Orders Medication Instructions Recorded Confirmed acetaminophen 500 mg tablet 500 mg PO QID PRN Pain #50 tabs 10/14/23 06/07/24 (Acetaminophen Extra Strength) budesonide-formoterol HFA 80 1 inh inhalation BID #10.2 grams 02/04/24 06/07/24 mcg-4.5 mcg/actuation aerosol inhaler (Breyna) ibuprofen 600 mg tablet (IBU) 600 mg PO Q6H PRN pain 04/12/24 06/07/24 quetiapine 300 mg tablet 300 mg PO HS 04/12/24 06/07/24 trazodone 300 mg tablet 300 mg PO HS 04/12/24 06/07/24 albuterol sulfate 90 mcg/actuation 1 - 2 puff inhalation Q4HR PRN 05/06/24 06/07/24 aerosol inhaler (Ventolin HFA) Shortness Of Air/Wheezing #1 ea citalopram 20 mg tablet 20 mg PO DAILY #90 tabs 05/07/24 06/07/24 divalproex 250 mg tablet,delayed 250 mg PO BID #180 tabs 05/07/24 06/07/24 release pregabalin 150 mg capsule (Lyrica) 150 mg PO BID #180 caps 05/24/24 06/07/24 azithromycin 250 mg tablet 250 mg PO DAILY 6 days #6 tabs 06/04/24 06/07/24 oxycodone 5 mg tablet 5 mg PO Q4HR PRN Pain 5 to 7 #20 06/04/24 06/07/24 tabs ipratropium 0.5 mg-albuterol 3 mg 3 ml inhalation RTQID PRN 06/07/24 06/07/24 (2.5 mg base)/3 mL nebulization shortness of breath or wheezing soln codeine 10 mg-guaifenesin 100 mg/5 5 ml PO Q4H PRN cough 06/08/24 06/08/24 mL oral liquid (Guaifenesin AC) guaifenesin 600 mg tablet, 600 mg PO BID 06/08/24 06/08/24 extended release 12 hr LABS 06/04/24 05:27 06/04/24 05:27 Discharge Plan Discharge Patient Disposition: 01 INTERMEDIATE, Self Care Condition: Stable Medically Cleared Date:: 06/04/24 Prescriptions: New oxycodone 5 mg Tablet 5 mg PO Q4HR PRN (Reason: Pain 5 to 7) Qty: 20 0RF azithromycin 250 mg tablet 250 mg PO DAILY 6 Days Qty: 6 0RF Continued budesonide-formoterol [Breyna] 80-4.5 mcg/actuation HFA aerosol inhaler 1 inh inhalation BID Qty: 10.2 3RF citalopram 20 mg tablet 20 mg PO DAILY Qty: 90 0RF divalproex 250 mg tablet,delayed release (DR/EC) 250 mg PO BID Qty: 180 0RF pregabalin [Lyrica] 150 mg capsule 150 mg PO BID Qty: 180 1RF acetaminophen [Acetaminophen Extra Strength] 500 MG tablet 500 mg PO QID PRN (Reason: Pain) Qty: 50 0RF ibuprofen [IBU] 600 mg tablet 600 mg PO Q6H PRN (Reason: pain) quetiapine 300 mg tablet 300 mg PO HS trazodone 300 mg tablet 300 mg PO HS albuterol sulfate [Ventolin HFA] 90 mcg/actuation HFA aerosol inhaler 1 - 2 puff inhalation Q4HR PRN (Reason: Shortness Of Air/Wheezing) Qty: 1 12RF No Action ipratropium-albuterol 0.5 mg-3 mg(2.5 mg base)/3 mL Solution For Nebulization 3 ml inhalation RTQID PRN (Reason: shortness of breath or wheezing) guaifenesin 600 mg tablet extended release 12hr 600 mg PO BID codeine-guaifenesin [Guaifenesin AC] 10-100 mg/5 mL liquid 5 ml PO Q4H PRN (Reason: cough) Activity Restrictions: Activity as Tolerated Diet: Regular Health Concerns: You have a history of asthma and continue to smoke on a daily basis. Unfortunately smoking any substance, whether it is marijuana or tobacco, will flareup asthma. And on top of that if you get a URI, it makes even worse. [facility] and you have been sick for 2 to 3 days with a wet cough, shortness of breath, wheezing and sinus pressure. An ambulance was called because he was so short of breath, but you felt you are not sick enough to be transported and declined coming to the hospital. That night you were found unresponsive, unconscious, with periods of not breathing. Ambulance was called and you did not even know what was happening until you were in the ambulance on the way to the hospital. That made you very angry. We found you to be in severe asthma attack. Very low oxygen levels. So far treatment has been oxygen, steroids, nebulizers. You feel like you can go back home even though your coughing is very, very severe. You also told us that you had fallen in the bathroom 3 days before all of this. Your foot was really hurting you and was very bruised. We did an x-ray and you have broken the long shaft bone attaching your fifth toe on the left foot. We also had a long talk. You are so frustrated of being in the hospital you were blaming [facility] for calling an ambulance unnecessarily. I explained to you that you had lost consciousness, were stopping breathing. You initially stated that you just wanted to be let go. You did not want any procedures done to you. You would rather that they had just let you . But after you calm down, and we spoke a long time about what was important in your life, if you change your mind. You would like to be a full code. He would like treatment given to you if necessary. Your homework is to go home and find out who your DPOA should be. I am suggesting it would be your brother. Get paperwork filled out so that he is your DPOA. You also filled out something called a POLST form here. This lets ambulance and [facility] know that you are a full code, and that you want to be resuscitated if your heart stops or you stop breathing. It is a green piece of paper that should be kept in your room at all times. We have a copy here at the hospital. Instructions for discharge: 1. Please see your primary care provider in the next few days. You we do need follow-up on your lungs since they are so severe right now 2. Please stop smoking anything. Including pot. 3. Resume all your usual medications. 4. The medicines I am adding are + Robitussin AC which is a slight bit of codeine to suppress the cough. Take it only at night for sleep + Oxycodone 5 mg tablets. Take 1 tablet every 6-8 hours as needed for foot pain. + Azithromycin 250 mg tablet 1 tablet a day for 6 days. We did not see any pneumonia on your chest x-ray but your coughing is so severe that we thought this may help. + You still need oxygen. We are discharging you on 2 L nasal cannula oxygen to be worn 24/ until you are seen by your doctor to take you off of it + In addition to your long-acting asthma medications, I am giving you nebulized solution. The equipment will be delivered to your room at a [facility]. So you will be getting oxygen equipment and nebulizer medicine equipment. The nebulizer medicine solution I am calling to the pharmacy that takes care of [facility]. Print Language: Irish Patient Instructions: Asthma Action Plan, Asthma Avoid Triggers Ch, Asthma Action Plan Ch Follow-up Care: Griselda Beaulieu PA-C [Primary Care Provider] -
== END 2024-06-04 15:15 | disposition home or self-care (01) | DRG 202 ==
LOC: MS2 04:28 → ED 04:28 → MS2 12:15
PROVIDERS: ADMIT Specialist; ATTEND Specialist
DX: Z71.6 Tobacco abuse counseling; S90.122A Contusion of left lesser toe(s) without damage to nail, initial encounter; E11.69 Type 2 diabetes mellitus with other specified complication; W18.2XXA Fall in (into) shower or empty bathtub, initial encounter; F31.81 Bipolar II disorder; Z68.43 Body mass index [BMI] 50.0-59.9, adult; J45.41 Moderate persistent asthma with (acute) exacerbation; E66.9 Obesity, unspecified; Z99.81 Dependence on supplemental oxygen; J96.01 Acute respiratory failure with hypoxia; Z79.899 Other long term (current) drug therapy; S92.352A Displaced fracture of fifth metatarsal bone, left foot, initial encounter for closed fracture; N39.0 Urinary tract infection, site not specified; B97.29 Other coronavirus as the cause of diseases classified elsewhere; I10 Essential (primary) hypertension; E11.9 Type 2 diabetes mellitus without complications; E87.5 Hyperkalemia; Z99.3 Dependence on wheelchair; F17.210 Nicotine dependence, cigarettes, uncomplicated; J06.9 Acute upper respiratory infection, unspecified

== ENCOUNTER 2024-06-07 01:33 | Inpatient (IN) ==
--- NOTE | 2024-06-07 01:48 | ED Physician Documentation ---
PD HPI DYSPNEA Stated complaint Stated Complaint: SOA Chief complaint Chief Complaint: Resp History obtained from History obtained from: EMS Additional information Additional information: BIBA. Shine was called by staff at [facility] patient is currently a resident. Patient arrives via EMS on BiPAP, lethargic and thus unable to provide HPI/ROS. Per EMS report, staff at [facility] found patient lying supine in bed without her supplemental oxygen (patient uses 2 L nasal cannula) with pulse ox 60% and exhibiting lethargy. Time EMS arrived to evaluate patient, staff had placed the patient on her 2 L nasal cannula supplemental oxygen, EMS found patient to have pulse ox in the lower 70s. They also found patient to be lethargic, would respond to painful stimulus. EMS administered DuoNeb x 2, and with these medications along with placement of CPAP, pulse ox improved to 95-100%. She remains lethargic Meds/Allgy Home Medications Ambulatory Orders Medication Instructions Recorded Confirmed acetaminophen 500 mg tablet 500 mg PO QID PRN Pain #50 tabs 10/14/23 06/07/24 (Acetaminophen Extra Strength) budesonide-formoterol HFA 80 1 inh inhalation BID #10.2 grams 02/04/24 06/07/24 mcg-4.5 mcg/actuation aerosol inhaler (Breyna) ibuprofen 600 mg tablet (IBU) 600 mg PO Q6H PRN pain 04/12/24 06/07/24 quetiapine 300 mg tablet 300 mg PO HS 04/12/24 06/07/24 trazodone 300 mg tablet 300 mg PO HS 04/12/24 06/07/24 albuterol sulfate 90 mcg/actuation 1 - 2 puff inhalation Q4HR PRN 05/06/24 aerosol inhaler (Ventolin HFA) Shortness Of Air/Wheezing #1 ea citalopram 20 mg tablet 20 mg PO DAILY #90 tabs 05/07/24 06/07/24 divalproex 250 mg tablet,delayed 250 mg PO BID #180 tabs 05/07/24 06/07/24 release pregabalin 150 mg capsule (Lyrica) 150 mg PO BID #180 caps 05/24/24 06/07/24 azithromycin 250 mg tablet 250 mg PO DAILY 6 days #6 tabs 06/04/24 06/07/24 oxycodone 5 mg tablet 5 mg PO Q4HR PRN Pain 5 to 7 #20 06/04/24 06/07/24 tabs ipratropium 0.5 mg-albuterol 3 mg 3 ml inhalation RTQID PRN 06/07/24 06/07/24 (2.5 mg base)/3 mL nebulization shortness of breath or wheezing soln Allergies Allergies Allergy/AdvReac Type Severity Reaction Status Date / Time No Known Drug Allergies Allergy Verified 06/07/24 01:54 [facility] Active Problems All Active Problems (Updated 06/07/24 @ 17:51 by Sara Roberson) GARTH (acute kidney injury) (Acute) COPD exacerbation (Acute) Cough (Acute) Metatarsal fracture (Acute) PTSD (post-traumatic stress disorder) (Acute) Sepsis (Acute) Hyperkalemia (Acute) Preventative health care (Acute) Wheelchair dependent (Chronic) Chronic pain (Chronic) Generalized anxiety disorder (Chronic) Medical History Medical History (Updated 06/07/24 @ 17:51 by Sara Roberson) DM2 (diabetes mellitus, type 2) Hypoxemia Acute exacerbation of extrinsic asthma Bipolar 2 disorder Essential (primary) hypertension (07/13/07) Asthma, moderate persistent (10/22/06) Closed comminuted supracondylar fracture of femur Reactive depression (situational) Accidental fall from wheelchair Illicit drug use Femur fracture, left Anxiety and depression Hypothermia Left shoulder strain Postoperative hypovolemic shock Osteomyelitis Infected prosthetic hip left hip Septic arthritis Right knee buckling s/p injury/infection, cannot stand on this leg Anemia, iron deficiency (11/26/06) Pyelonephritis, acute (11/20/06) Psoriasis (11/20/06) Migraine with aura (10/22/06) Displaced oblique fracture of shaft of humerus, left arm, initial encounter for closed fracture (05/25/20) Diabetes mellitus with hyperglycemia (11/20/06) Concussion injury of brain Surgical History Surgical History Hx of inguinal hernia repair right Hx of cholecystectomy Hx of appendectomy Hx of lithotripsy 2008 History of left hip replacement revision due to osteomyelitis, OMEGA, 2016 Hx of bilateral hip replacements Family History Family History Mother Diabetes Heart failure Father Diabetes Heart failure Social History Social History Smoking Status: Current every day smoker Number of Years Smoked: 30 How many cigarettes a day do you smoke? (20 cigarettes=1 Pk): 10 Second hand tobacco smoke exposure: Yes Do you dip or chew tobacco?: No Do you vape?: No Patient requests smoking cessation consult: No Initiate information on smoking cessation: No Living arrangement: Assisted living Relationship: Level: Assisted Home Mobility Equipment: Wheelchair Physical - Functional Details: Pivots for transfers. Do you feel safe in your home environment?: Yes Suffered physical, verbal, emotional, or financial abuse?: No History of Abuse: No ETOH Use: None Substance Use: cannabis (any form) POLST Patient has POLST: No POLST Status: Full Code Exam Constitutional no apparent distress and level of alertness abnormal (lethargic) on CPAP. responds briefly to repeat verbal stimulus when combined with tactile stimulus (repeat shoulder tap/shake) Eyes PERRL Respiratory breath sounds equal bilaterally, auscultation abnormal (diminished breath sound) and wheezing noted (expiratory wheezes) Cardiovascular normal heart rate noted and regular rhythm noted Gastrointestinal abdomen soft to palpation, nontender to palpation and nondistended Psychiatry oriented x3 Results Vitals Vitals: Vital Signs - 24 hr 06/07/24 03:30 06/07/24 03:45 06/07/24 04:05 Temperature Temperature Source Pulse Rate 82 79 74 Respiratory Rate 18 18 Blood Pressure 110/73 96/61 O2 Saturation 93 91 L O2 Source BIPAP BIPAP Fraction of Inspired Oxygen (FIO2) 35 Pain Intensity 0 0 06/07/24 04:06 06/07/24 04:15 06/07/24 04:30 Temperature Temperature Source Pulse Rate 76 76 74 Respiratory Rate 17 12 19 Blood Pressure 96/61 98/71 112/74 O2 Saturation 90 L 81 L O2 Source BIPAP BIPAP BIPAP Fraction of Inspired Oxygen (FIO2) Pain Intensity 0 0 0 06/07/24 04:35 06/07/24 04:48 06/07/24 05:04 Temperature Temperature Source Pulse Rate 70 67 77 Respiratory Rate 18 22 Blood Pressure 102/71 99/74 O2 Saturation 94 100 O2 Source BIPAP Room air Fraction of Inspired Oxygen (FIO2) 40 Pain Intensity 0 06/07/24 05:04 Temperature 36.7 C Temperature Source Tympanic Pulse Rate 69 Respiratory Rate 17 Blood Pressure 124/84 O2 Saturation 100 O2 Source BIPAP Fraction of Inspired Oxygen (FIO2) Pain Intensity Oxygen O2 Source [With Activity] Room air O2 Source [Without Activity] Room air O2 Source BIPAP Labs Labs: Laboratory Tests 06/07/24 06/07/24 06/07/24 01:40 01:45 04:30 WBC 16.3 H RBC 4.43 Hgb 12.4 Hct 42.8 MCV 96.6 MCH 28.0 MCHC 29.0 L RDW 15.3 H Plt Count 152 MPV 9.8 Neut # (Auto) 12.7 H Lymph # (Auto) 1.9 Cassia # (Auto) 1.5 H Eos # (Auto) 0.1 Baso # (Auto) 0.0 Absolute Nucleated RBC 0.00 Nucleated RBC % 0.0 VBG pH 7.321 7.353 VBG pCO2 67.7 H 65.9 H VBG pO2 70.0 H 48.7 H VBG HCO3 35.3 H 37.0 H VBG Total CO2 37.4 H 39.0 H VBG O2 Saturation 91.0 H 76.0 VBG Base Excess 9.0 H 11.2 H Sodium 134 L Potassium 5.5 H Chloride 97 L Carbon Dioxide 32 Anion Gap 5.0 L BUN 39 H Creatinine 1.7 H Estimated GFR (MDRD) 31 L Glucose 135 H Calcium 9.3 Total Bilirubin 0.7 AST 45 H ALT 34 Alkaline Phosphatase 96 Total Protein 7.7 Albumin 3.5 Globulin 4.2 Albumin/Globulin Ratio 0.8 L Lipase 11 Nasal Adenovirus (PCR) NOT DETECTED Nasal B. parapertussis DNA (PCR) NOT DETECTED Nasal Coronavir 229E PCR NOT DETECTED Nasal Coronavir HKU1 PCR DETECTED A Nasal Coronavir NL63 PCR NOT DETECTED Nasal Coronavir OC43 PCR NOT DETECTED Nasal Enterovir/Rhinovir PCR NOT DETECTED Nasal Influenza B PCR NOT DETECTED Nasal Influenza A PCR NOT DETECTED Nasal Parainfluen 1 PCR NOT DETECTED Nasal Parainfluen 2 PCR NOT DETECTED Nasal Parainfluen 3 PCR NOT DETECTED Nasal Parainfluen 4 PCR NOT DETECTED Nasal RSV (PCR) NOT DETECTED Nasal B.pertussis DNA PCR NOT DETECTED Nasal C.pneumoniae (PCR) NOT DETECTED Virgilio Human Metapneumo PCR NOT DETECTED Nasal M.pneumoniae (PCR) NOT DETECTED Nasal SARS-CoV-2 (PCR) NOT DETECTED Rads (name of study) chest xray: Relevant Findings:: Prelim report reviewed and See rad report PD Medical Decision Making ED course Complexity details: reviewed results, re-evaluated patient and considered differential ED course: Given albuterol neb in ED along with 10mg IV dexamethasone. Saturations maintained in mid-90s with bipap in ED. On reexamination she has persistent bilateral wheezing throughout expiratory phase as well as decreased breath sounds suggesting poor air movement. Leukocytosis (WBC 16.3), mild hyperkalemia (K 5.5), BUN 39 and creatinine 1.7 (previous results show that her baseline creatinine is WNL). Respiratory PCR panel is positive for coronavirus HKU1 (same result as when she was in this ED/admitted few days ago). I discussed this case with [facility] practitioner on duty who accepts patient to [facility] hospitalist service. Discharge Plan Discharge Patient Disposition: [facility] DC/Xfer Condition: Stable Clinical Impression: COPD exacerbation, GARTH (acute kidney injury) Interventions: ED Admission Assessment Last Done: 06/07/24 06:04
[2024-06-07 01:56] LABS: BASOPHILS % (AUTO) 0.2 %; EOSINOPHILS # (AUTO) 0.1 10^3/uL (0.0-0.7); EOSINOPHILS % (AUTO) 0.6 %; HCT - HEMATOCRIT 42.8 % (37.0-47.0); HGB - HEMOGLOBIN 12.4 g/dL (12.0-16.0); LYMPHOCYTES # (AUTO) 1.9 10^3/uL (1.5-3.5); LYMPHOCYTES % (AUTO) 11.4 %; MEAN CORPUSCULAR VOLUME 96.6 fL (81.0-99.0); MEAN PLATELET VOLUME 9.8 fL (7.9-10.8); MONOCYTES # (AUTO) 1.5 10^3/uL (0.0-1.0); MONOCYTES % (AUTO) 9.2 %; NEUTROPHILS # (AUTO) 12.7 10^3/uL (1.5-6.6); NEUTROPHILS % (AUTO) 77.7 %; PLT - PLATELET COUNT 152 10^3/uL (130-450); RED BLOOD COUNT 4.43 10^6/uL (4.20-5.40); RED CELL DISTRIBUTION WIDTH 15.3 % (12.0-15.0); WHITE BLOOD COUNT 16.3 x10^3/uL (4.8-10.8)
[2024-06-07 01:57] LABS: VBG PCO2 67.7 mmHg (41-51); VBG PH 7.321 (7.31-7.41)
[2024-06-07 01:58] LABS: VBG TOTAL CO2 37.4 mmol/L (24-29)
[2024-06-07] MEDS: ALBUTEROL NEB 2.5 MG/3 ML INH STA (02:02)
[2024-06-07] MEDS: DEXAMETHASONE 10 MG/ML VIAL IVP STA (02:12)
[2024-06-07 02:21] LABS: ALBUMIN 3.5 g/dL (3.2-5.5); ALBUMIN/GLOBULIN RATIO 0.8 (1.0-2.2); BILIRUBIN,TOTAL 0.7 mg/dL (0.2-1.0); CALCIUM 9.3 mg/dL (8.5-10.3); CREATININE 1.7 mg/dL (0.6-1.3); POTASSIUM 5.5 mmol/L (3.5-4.5); TOTAL PROTEIN 7.7 g/dL (6.4-8.9)
[2024-06-07 02:52] LABS: B. PARAPERTUSSIS- RESP PCR PAN NOT DETECTED; B. PERTUSSIS- RESP PCR PANEL NOT DETECTED; C. PNEUMONIAE- RESP PCR PANEL NOT DETECTED; CORONAVIRUS 229E-RESP PCR NOT DETECTED; CORONAVIRUS HKU1-RESP PCR DETECTED; CORONAVIRUS NL63-RESP PCR NOT DETECTED; CORONAVIRUS OC43-RESP PCR NOT DETECTED; HUMAN METAPNEUMOVIRUS NOT DETECTED; INFLUENZA A- RESP PCR PANEL NOT DETECTED; M. PNEUMONIAE- RESP PCR PANEL NOT DETECTED; RHINOVIRUS/ENTEROVIRUS NOT DETECTED; SARS-CoV-2 -RESP PCR PANEL NOT DETECTED
[2024-06-07 02:53] LABS: INFLUENZA B - RESP PCR PANEL NOT DETECTED; PARAINFLUENZA VIRUS 1 NOT DETECTED; PARAINFLUENZA VIRUS 2 NOT DETECTED; PARAINFLUENZA VIRUS 4 NOT DETECTED; RSV- RESP PCR PANEL NOT DETECTED
[2024-06-07 04:38] LABS: VBG PCO2 65.9 mmHg (41-51); VBG PH 7.353 (7.31-7.41); VBG PO2 48.7 mmHg (25-47)
[2024-06-07 04:39] LABS: VBG BASE EXCESS 11.2 mmol/L (-2 - +2)
[2024-06-07] MEDS ORDERED: ACETAMINOPHEN 500 MG TABLET PO PRN (05:15)
[2024-06-07] MEDS ORDERED: NON FORMULARY MED (Albuterol Sulfate [Ventolin Hfa] 90 mcg/actuation HFA aerosol inhaler) INH PRN (05:15)
[2024-06-07] MEDS ORDERED: ONDANSETRON ODT 4 MG TABLET TL PRN (05:17)
[2024-06-07] MEDS ORDERED: IPRATROPIUM 0.2 MG/ML NEB INH PRN (05:17)
[2024-06-07] MEDS ORDERED: ONDANSETRON 4 MG/2 ML VIAL IVP PRN (05:17)
[2024-06-07] MEDS ORDERED: IPRATROPIUM/ALBUTEROL 3 ML NEB INH PRN (05:22)
--- NOTE | 2024-06-07 05:37 | HISTORY & PHYSICAL EXAMINATION ---
Chief Complaint Chief Complaint Chief Complaint: SOB History of Present Illness Admitted From Admitted From:: ER History Obtained From Records Reviewed: Yes History obtained from: Staff, chart Exam Limitations: Virtual exam, pt condition History of Present Illness HPI Comment/Other: H&P was conducted via video remotely, using [employer]. [place] Phys[place] in [place] RN is at bedside. 53 yo F with PMH of Bipolar disorder, Anxiety disorder, COPD/Asthma on Home 2L NC O2, tobacco abuse, Hypertension, DM type [id number], wheelchair- dependent, and is a resident at an Adult Home presented to the ER via EMS after being found unresponsive at the home with low O2 sats and bradycardia. EMS reported low O2 sats and placed pt on BIPAP. Pt has been somnolent and unable to give history. This is pt's 3rd hospitalization for same symptoms in 3 months; pt was most recently D/C'd 3 days ago, on 06/04/24. In the ER, SpO2 95% BIPAP 40%, BP 96/61 WBC 16.3, Na 134, K 5.5, CR 1.7, Coronavirus HKU1 + CXR: NAD Pt was given IVF, Duonebs, Decadron in the ER. Review of Systems Status of ROS: unobtainable due to medical condition PFSH Active Problems All Active Problems (Updated 06/07/24 @ 04:55 by Durga Gillis MD) GARTH (acute kidney injury) (Acute) COPD exacerbation (Acute) Cough (Acute) Metatarsal fracture (Acute) PTSD (post-traumatic stress disorder) (Acute) Sepsis (Acute) Hyperkalemia (Acute) Preventative health care (Acute) Wheelchair dependent (Chronic) Chronic pain (Chronic) Generalized anxiety disorder (Chronic) Medical History Medical History Closed comminuted supracondylar fracture of femur Reactive depression (situational) Accidental fall from wheelchair Illicit drug use Femur fracture, left Anxiety and depression Hypothermia Left shoulder strain Postoperative hypovolemic shock Osteomyelitis Infected prosthetic hip left hip Septic arthritis Right knee buckling s/p injury/infection, cannot stand on this leg Anemia, iron deficiency (11/26/06) Pyelonephritis, acute (11/20/06) Psoriasis (11/20/06) Migraine with aura (10/22/06) Displaced oblique fracture of shaft of humerus, left arm, initial encounter for closed fracture (05/25/20) Diabetes mellitus with hyperglycemia (11/20/06) Concussion injury of brain Surgical History Surgical History Hx of inguinal hernia repair right Hx of cholecystectomy Hx of appendectomy Hx of lithotripsy 2008 History of left hip replacement revision due to osteomyelitis, OMEGA, 2016 Hx of bilateral hip replacements Family History Family History Mother Diabetes Heart failure Father Diabetes Heart failure Social History Social History Smoking Status: Current every day smoker Number of Years Smoked: 30 How many cigarettes a day do you smoke? (20 cigarettes=1 Pk): 10 Second hand tobacco smoke exposure: Yes Do you dip or chew tobacco?: No Do you vape?: No Patient requests smoking cessation consult: No Initiate information on smoking cessation: No Living arrangement: Assisted living Relationship: Level: Independent Home Mobility Equipment: Wheelchair Physical - Functional Details: Pivots for transfers. Do you feel safe in your home environment?: Yes Suffered physical, verbal, emotional, or financial abuse?: No History of Abuse: No ETOH Use: None Substance Use: cannabis (any form) POLST Patient has POLST: No POLST Status: Full Code Meds/Allgy Home Medications Ambulatory Orders Medication Instructions Recorded Confirmed acetaminophen 500 mg tablet 500 mg PO QID PRN Pain #50 tabs 10/14/23 06/02/24 (Acetaminophen Extra Strength) budesonide-formoterol HFA 80 1 inh inhalation BID #10.2 grams 02/04/24 06/02/24 mcg-4.5 mcg/actuation aerosol inhaler (Breyna) ibuprofen 600 mg tablet (IBU) 600 mg PO Q6H PRN pain 04/12/24 06/02/24 quetiapine 300 mg tablet 300 mg PO HS 04/12/24 06/02/24 trazodone 300 mg tablet 300 mg PO HS 04/12/24 06/02/24 albuterol sulfate 90 mcg/actuation 1 - 2 puff inhalation Q4HR PRN 05/06/24 06/02/24 aerosol inhaler (Ventolin HFA) Shortness Of Air/Wheezing #1 ea citalopram 20 mg tablet 20 mg PO DAILY #90 tabs 05/07/24 06/02/24 divalproex 250 mg tablet,delayed 250 mg PO BID #180 tabs 05/07/24 06/02/24 release pregabalin 150 mg capsule (Lyrica) 150 mg PO BID #180 caps 05/24/24 06/02/24 azithromycin 250 mg tablet 250 mg PO DAILY 6 days #6 tabs 06/04/24 codeine 10 mg-guaifenesin 100 mg/5 5 ml PO Q6HR PRN Cough #118 mL 06/04/24 mL oral liquid guaifenesin 600 mg tablet, 600 mg PO BID #30 tabs 06/04/24 extended release 12 hr (Mucinex) ipratropium 0.5 mg-albuterol 3 mg 3 ml inhalation RTQID #30 mL 06/04/24 (2.5 mg base)/3 mL nebulization soln oxycodone 5 mg tablet 5 mg PO Q4HR PRN Pain 5 to 7 #20 06/04/24 tabs Allergies Allergies Allergy/AdvReac Type Severity Reaction Status Date / Time No Known Drug Allergies Allergy Verified 06/07/24 01:54 Exam Constitutional On BIPAP, somnolent Eyes no scleral icterus Respiratory cart stethoscope not working; per ER Provider: breath sounds equal bilaterally, auscultation abnormal and wheezing noted (bilateral course wheezing throughout expiratory phase in all lung kennedy) (expiratory wheezes) Cardiovascular cart stethoscope not working; per ER Provider: normal heart rate noted, regular rhythm Gastrointestinal per ER Provider: abdomen soft to palpation, nontender to palpation, nondistended and normoactive bowel sounds Neurology Pt lethargic, not responding to commands or questions Conclusion/Plan Problem List (1) COPD exacerbation: Plan Acute on Chronic Respiratory Failure with Hypoxia COPD Exacerbation COPD/Asthma on Home 2L NC O2 Tobacco abuse Coronavirus infection, continued (from last admit) Leukocytosis -SpO2 95% BIPAP 40% -WBC 16.3, Coronavirus HKU1 + -CXR: NAD -Pt was given IVF, Duonebs, Decadron in the ER. -admit to ICU -continue BIPAP/O2 support -Duonebs PRN -continue home meds: steroid MDI -continue Decadron -continue home med: Azithro -add Rocephin -pt has received tobacco cessation counseling; continue -check UDS, U/A Acute Renal Failure Hyponatremia Hyperkalemia, mild -Na 134, K 5.5, CR 1.7 -most likely d/t decreased PO intake -continue IVF Hypertension -BP 96/61 -not on home meds -pt on IVF DM type [id number] -accuchecks, SS Insulin, Hypoglycemic protocol -check Hgba1c Bipolar disorder Anxiety disorder -continue home medications:Trazodone, Seroquel, Depakote, Celexa, Lyrica -supportive care Wheelchair-dependent -supportive care VTE Prophylaxis: Heparin SQ Code Status: unable to D/W pt d/t pt condition; pt is Full Code per recent hospitalization ~Harmony Gannon MD Hospitalist Lab Results Lab results reviewed: Yes 06/07/24 01:45 06/07/24 01:45
[2024-06-07] MEDS ORDERED: ALBUTEROL NEB 2.5 MG/3 ML INH PRN (06:07)
[2024-06-07] MEDS: SODIUM CHLORIDE FLUSH 0.9% 10 ML SYRINGE IVP PRN (06:25)
[2024-06-07] MEDS: SODIUM CHLORIDE 0.9% 1,000 ML IV SCH (06:25)
[2024-06-07] MEDS: INSULIN REGULAR, HUMAN 300 UNIT/3 ML PEN SUBQ SCH (06:51)
[2024-06-07 07:26] LABS: ABG PH 7.37 (7.35-7.45)
[2024-06-07 07:27] LABS: ABG HCO3 35.5 mmol/L (22.0-26.0); ABG OXYGEN SATURATION 99 % (95-98); ABG PO2 103 mmHg (83-108); ABG TCO2 37.3 mmol/L (21.0-29.0); ALLEN TEST POSITIVE
[2024-06-07 07:28] LABS: ABG MODE OF VENTILATION AVAPS; ABG RESPIRATORY RATE 18 b/min
[2024-06-07 07:31] LABS: ABG PCO2 61 mmHg (34-45)
--- NOTE | 2024-06-07 08:18 | XRAY Report ---
PROCEDURE: XR Chest 1V INDICATIONS: dyspnea TECHNIQUE: One view of the chest was acquired. COMPARISON: Chest x-ray 06/02/2024 FINDINGS: Surgical changes and devices: None. Lungs and pleura: No pleural effusions or pneumothorax. No consolidation. Mediastinum: Mediastinal contours appear normal. Heart size is normal. Bones and chest wall: No suspicious bony lesions. Overlying soft tissues appear unremarkable. IMPRESSION: No acute cardiopulmonary process. The above findings are concordant with preliminary report. Reviewed by: Kisha Littlejohn MD on 06/07/2024 8:17 AM PDT Approved by: Kisha Littlejohn MD on 06/07/2024 8:17 AM PDT Station ID: [id number]
[2024-06-07] MEDS: DEXAMETHASONE 10 MG/ML VIAL IVP SCH (08:49)
[2024-06-07] MEDS: HEPARIN 5,000 UNIT/ML VIAL SUBQ SCH (08:49)
[2024-06-07] MEDS: INSULIN REGULAR, HUMAN 300 UNIT/3 ML PEN IVP ONE (08:49)
[2024-06-07] MEDS: DEXTROSE 50% ABBOJECT 25 GM/50 ML SYRINGE IVP ONE (08:49)
[2024-06-07] MEDS: SODIUM CHLORIDE FLUSH 0.9% 10 ML SYRINGE IVP SCH (08:50)
[2024-06-07] MEDS: FAMOTIDINE 20 MG/2 ML VIAL IVP SCH (08:50)
[2024-06-07] MEDS: cefTRIAXone 1 GM in SODIUM CHLORIDE 0.9% MINIBAG 100 ML IV SCH (08:50)
[2024-06-07] MEDS ORDERED: DEXAMETHASONE 20 MG/5 ML VIAL IVP SCH (09:00)
[2024-06-07] MEDS: CITALOPRAM HYDROBROMIDE 20 MG TABLET PO SCH (09:13)
[2024-06-07] MEDS: DIVALPROEX DR 250 MG TABLET PO SCH (09:13)
[2024-06-07] MEDS: AZITHROMYCIN 250 MG TABLET PO SCH (09:13)
[2024-06-07] MEDS: guaiFENesin 600 MG TABLET PO SCH (09:14)
[2024-06-07] MEDS: PREGABALIN 25 MG CAPSULE PO SCH (09:14)
[2024-06-07] MEDS: PREGABALIN 100 MG CAPSULE PO SCH (09:14)
[2024-06-07] MEDS: methylPREDNISolone SUCCINATE 40 MG/ML VIAL IVP SCH (10:00)
[2024-06-07] MEDS: IPRATROPIUM/ALBUTEROL 3 ML NEB INH SCH (12:06)
[2024-06-07 12:56] LABS: BILIRUBIN,URINE NEGATIVE (NEGATIVE); GLUCOSE, URINE (UA) NEGATIVE (NEGATIVE); KETONES,URINE (UA) NEGATIVE (NEGATIVE); LEUKOCYTE ESTERASE, URINE SMALL (NEGATIVE); NITRITE,URINE POSITIVE (NEGATIVE); OCCULT BLOOD,URINE NEGATIVE (NEGATIVE); PROTEIN,URINE 100 mg/dL (NEGATIVE); UROBILINOGEN,URINE 0.2 (NORMAL) E.U./dL (NORMAL)
[2024-06-07 12:58] LABS: CLARITY,URINE SL. CLOUDY (CLEAR)
[2024-06-07 13:06] LABS: RBC,URINE 0-5 /HPF (0-5); SQUAMOUS EPITHELIAL CELL,UR FEW Squamous (<= Few); WBC,URINE >25 /HPF (0-5)
[2024-06-07 13:07] LABS: BACTERIA,URINE Moderate /HPF (None Seen)
[2024-06-07 13:47] LABS: CALCIUM 8.7 mg/dL (8.5-10.3); CREATININE 1.3 mg/dL (0.6-1.3); POTASSIUM 4.9 mmol/L (3.5-4.5)
[2024-06-07] MEDS: LORazepam 2 MG/ML VIAL IVP PRN (13:48)
[2024-06-07] MEDS: ACETAMINOPHEN 325 MG TABLET PO PRN (14:04)
[2024-06-07] MEDS: guaiFENesin/CODEINE 5 ML UDC PO PRN (14:04)
[2024-06-07] MEDS: oxyCODONE 5 MG TABLET PO PRN (14:04)
--- NOTE | 2024-06-07 14:04 | PHARMACY PROGRESS NOTE ---
Best Possible Medication History Admit Date and Time: 06/07/24 0517 Home Medications Medication Instructions Recorded Confirmed Type acetaminophen 500 mg tablet 500 mg PO QID PRN Pain #50 tabs 10/14/23 06/07/24 Rx (Acetaminophen Extra Strength) budesonide-formoterol HFA 80 1 inh inhalation BID #10.2 grams 02/04/24 06/07/24 Rx mcg-4.5 mcg/actuation aerosol inhaler (Breyna) ibuprofen 600 mg tablet (IBU) 600 mg PO Q6H PRN pain 04/12/24 06/07/24 History quetiapine 300 mg tablet 300 mg PO HS 04/12/24 06/07/24 History trazodone 300 mg tablet 300 mg PO HS 04/12/24 06/07/24 History albuterol sulfate 90 mcg/actuation 1 - 2 puff inhalation Q4HR PRN 05/06/24 06/07/24 Rx aerosol inhaler (Ventolin HFA) Shortness Of Air/Wheezing #1 ea citalopram 20 mg tablet 20 mg PO DAILY #90 tabs 05/07/24 06/07/24 Rx divalproex 250 mg tablet,delayed 250 mg PO BID #180 tabs 05/07/24 06/07/24 Rx release pregabalin 150 mg capsule (Lyrica) 150 mg PO BID #180 caps 05/24/24 06/07/24 Rx azithromycin 250 mg tablet 250 mg PO DAILY 6 days #6 tabs 06/04/24 06/07/24 Rx oxycodone 5 mg tablet 5 mg PO Q4HR PRN Pain 5 to 7 #20 06/04/24 06/07/24 Rx tabs ipratropium 0.5 mg-albuterol 3 mg 3 ml inhalation RTQID PRN 06/07/24 06/07/24 History (2.5 mg base)/3 mL nebulization shortness of breath or wheezing soln Processed by: Pharmacy Medications reviewed in ED?: No Medication History completed: Yes Patient Interview: Completed Secondary Source(s): Insurance records [facility] Statement: As the person ultimately responsible for medication therapy, providers are able to order a medication from an existing home medication list in [facility] via the "Reconcile Routine" prior to Confirmation of that medication by naval surface fire support planner. S uch practice is discouraged except when the physician, in their clinical judgment, deems that a medical need exists for a medication without regard to previous use.
--- NOTE | 2024-06-07 14:42 | PROVIDER PROGRESS NOTE ---
Assessment/Plan Problem List (1) COPD exacerbation: Assessment/Plan: She was brought to the ER after being found unresponsive in her group home with low O2 stats and bradycardia. Coarse rhonchi heard on exam with accumulation of phlegm in throat. * CXR: unremarkable for acute cardiopulmonary process. Continue with medications started in ER and home medications * Dec[place] IVP daily * Rocephin IVP daily * Budesonide BID * Duoneb RTQID RUBÉN * Guaifenesin/Codeine Q6HR PRN * Azithromycin - not given today. Improvement upon initial admission, however stats declined with dose of Ativan. * Restarted patient on BiPAP. (2) Generalized anxiety disorder: Assessment/Plan: Given one dose of 0.5mg Ativan after waking up agitated. This caused her to be oversedated and worsened her respiratory function after previous improvement. * Discontinue ativan and resume home medications. * seroquel, trazodone, divalproex, and citalopram (3) DM2 (diabetes mellitus, type 2): Qualifiers: Diabetes mellitus complication status: with other specified complication Diabetes mellitus buttermaker insulin use: unspecified buttermaker insulin use status Qualified Code(s): E11.69 - Type 2 diabetes mellitus with other specified complication Assessment/Plan: Current glucose 124. Continue to monitor glucose and administer lispro on a sliding scale. (4) Bipolar 2 disorder: Assessment/Plan: Chronic, stable. Continue at home medications * seroquel, trazodone, divalproex, and citalopram (5) Wheelchair dependent: Assessment/Plan: Supportive care. (6) GARTH (acute kidney injury): Assessment/Plan: Hyponatremia has mildly improved. Chronic hyperkalemia. Potassium 5.5 on arrival, has improved to 4.9. Continue IVF. Trend BMP. Current Meds Current Meds: Current Medications Generic Name Dose Route Start Last Admin Trade Name Freq PRN Reason Stop Dose Admin Acetaminophen 650 mg 06/07/24 05:17 06/07/24 14:04 Acetaminophen 325 Mg Tablet PO 650 mg Q4HR PRN Administration Pain 1 to 4, or Fever Albuterol 2.5 mg 06/07/24 06:07 Albuterol Neb 2.5 Mg/3 Ml INH RTQ4H PRN Wheezing/ Shortness of breath Albuterol/Ipratropium 3 ml 06/07/24 07:00 06/07/24 12:06 Ipratropium/Albuterol 3 Ml Neb INH 3 ml RTQID RUBÉN Administration Albuterol/Ipratropium 3 ml 06/07/24 05:22 Ipratropium/Albuterol 3 Ml Neb INH Q4HR PRN Wheezing Azithromycin 250 mg 06/07/24 09:00 06/07/24 09:13 Azithromycin 250 Mg Tablet PO Not Given DAILY RUBÉN Budesonide 0.5 mg 06/07/24 19:00 Budesonide 0.5 Mg/2 Ml Neb INH RTBID RUBÉN Ceftriaxone Sodium 1 gm 06/08/24 09:00 Ceftriaxone 1 Gm Vial IVP DAILY RUBÉN Citalopram Hydrobromide 20 mg 06/07/24 09:00 06/07/24 09:13 Citalopram Hydrobromide 20 Mg Tablet PO Not Given DAILY RUBÉN Dexamethasone Sodium Phosphate 10 mg 06/07/24 09:00 06/07/24 08:49 Dexamethasone 10 Mg/Ml Vial IVP 10 mg DAILY RUBÉN Administration Divalproex Sodium 250 mg 06/07/24 09:00 06/07/24 09:[address] 250 Mg Tablet PO Not Given BID RUBÉN Famotidine 20 mg 06/07/24 09:00 06/07/24 08:50 Famotidine 20 Mg/2 Ml Vial IVP 20 mg BID RUBÉN Administration Guaifenesin 600 mg 06/07/24 09:00 06/07/24 09:14 Guaifenesin 600 Mg Tablet PO Not Given BID RUBÉN Guaifenesin/Codeine Phosphate 5 ml 06/07/24 12:39 06/07/24 14:04 Guaifenesin/Codeine 5 Ml Udc PO 5 ml Q6HR PRN Administration Cough Heparin Sodium (Porcine) 5,000 unit 06/07/24 09:00 06/07/24 08:49 Heparin 5,000 Unit/Ml Vial SUBQ 5,000 unit BID RUBÉN Administration Sodium Chloride 1,000 mls @ 100 mls/hr 06/07/24 06:00 06/07/24 06:25 Normal Saline 0.9% IV 100 mls/hr .Q10H RUBÉN Administration Insulin Human Regular 1 - 5 unit 06/07/24 06:00 06/07/24 12:44 Insulin Regular, Human 300 Unit/3 Ml Pen SUBQ 1 unit Q6HR RUBÉN Administration Protocol Lorazepam 0.5 mg 06/07/24 12:39 06/07/24 13:48 Lorazepam 2 Mg/Ml Vial IVP 0.5 mg Q2H PRN Administration Anxiety Ondansetron HCl 4 mg 06/07/24 05:17 Ondansetron Odt 4 Mg Tablet TL Q6HR PRN Nausea / Vomiting Ondansetron HCl 4 mg 06/07/24 05:17 Ondansetron 4 Mg/2 Ml Vial IVP Q6HR PRN Nausea / Vomiting Oxycodone HCl 5 mg 06/07/24 05:15 06/07/24 14:04 Oxycodone 5 Mg Tablet PO 5 mg Q4HR PRN Administration Pain 5 to 7 Pregabalin 100 mg 06/07/24 09:00 06/07/24 09:14 Pregabalin 100 Mg Capsule PO Not Given BID RUBÉN Pregabalin 50 mg 06/07/24 09:00 06/07/24 09:14 Pregabalin 25 Mg Capsule PO Not Given BID RUBÉN Quetiapine Fumarate 300 mg 06/07/24 21:00 Quetiapine 100 Mg Tablet PO HS RUBÉN Sodium Chloride 10 ml 06/07/24 09:00 06/07/24 08:50 Sodium Chloride Flush 0.9% 10 Ml Syringe IVP 10 ml 0100,0900,1700 [facility] Administration Sodium Chloride 10 ml 06/07/24 05:17 06/07/24 06:25 Sodium Chloride Flush 0.9% 10 Ml Syringe IVP 10 ml PRN PRN Administration NEEDED PER PROVIDER ORDERS Sterile Water 10 ml 06/08/24 09:00 Water For Injection,Sterile 10 Ml Vial MC DAILY [facility] Trazodone HCl 300 mg 06/07/24 21:00 Trazodone 50 Mg Tablet PO HS [facility] Lab Result Lab results reviewed: Yes 06/07/24 01:45 06/07/24 13:15 Other Lab Results: Potassium is 4.9 and was previously 5.5. Sodium has improved to 137 and was previously 134. Creatinine has improved to 1.3, previously 1.7. BUN is still elevated. eGFR is 43. EKG Results EKG Findings: Most recent EKG shows normal sinus rhythm. Telemetry strip upon arrival at 0800 showed sinus bradycardia. Diagnostic Imaging Results Diagnostic Imaging Results Comments: CXR is unremarkable without consolidation or other acute cardiopulmonary process. Subjective Subjective Nursing Reports: Sedated (Patient was agitated upon waking up but has since been sleeping comfortably after 0.5mg IV dose of Lorazepam. ) Objective Vital Signs: Vital Signs - 24 hr 06/07/24 01:38 06/07/24 01:45 06/07/24 01:54 Temperature 36.2 C L Temperature Source Tympanic Pulse Rate 93 100 103 H Pulse Rate [Monitoring electrodes] Respiratory Rate 20 24 Blood Pressure 111/49 L 95/61 Blood Pressure [Left Brachial artery] O2 Saturation 92 100 Oxygen Delivery Method O2 Source BIPAP BIPAP If not protocol: Oxygen Flow, liters/minute Fraction of Inspired Oxygen (FIO2) 70 FiO2 (%) 70 70 Sedation scale Pain Intensity 0 Pain Intensity [Generalized] 06/07/24 01:57 06/07/24 02:01 06/07/24 02:01 Temperature Temperature Source Pulse Rate 94 Pulse Rate [Monitoring electrodes] Respiratory Rate 23 Blood Pressure 95/61 Blood Pressure [Left Brachial artery] O2 Saturation 100 Oxygen Delivery Method Bi-pap O2 Source A-PAP If not protocol: Oxygen Flow, liters/minute Fraction of Inspired Oxygen (FIO2) 60 FiO2 (%) Sedation scale Pain Intensity Pain Intensity [Generalized] 06/07/24 02:03 06/07/24 02:06 06/07/24 02:09 Temperature Temperature Source Pulse Rate 89 Pulse Rate [Monitoring electrodes] Respiratory Rate 20 Blood Pressure Blood Pressure [Left Brachial artery] O2 Saturation Oxygen Delivery Method Bi-pap O2 Source BIPAP If not protocol: Oxygen Flow, liters/minute Fraction of Inspired Oxygen (FIO2) 50 FiO2 (%) Sedation scale Pain Intensity Pain Intensity [Generalized] 06/07/24 02:14 06/07/24 02:15 06/07/24 02:20 Temperature Temperature Source Pulse Rate 89 88 90 Pulse Rate [Monitoring electrodes] Respiratory Rate 22 14 Blood Pressure 106/72 95/62 Blood Pressure [Left Brachial artery] O2 Saturation 100 97 Oxygen Delivery Method O2 Source BIPAP BIPAP If not protocol: Oxygen Flow, liters/minute Fraction of Inspired Oxygen (FIO2) 40 FiO2 (%) Sedation scale Pain Intensity Pain Intensity [Generalized] 06/07/24 02:38 06/07/24 02:45 06/07/24 03:00 Temperature Temperature Source Pulse Rate 90 88 87 Pulse Rate [Monitoring electrodes] Respiratory Rate 16 17 18 Blood Pressure 103/70 103/70 104/76 Blood Pressure [Left Brachial artery] O2 Saturation 100 96 95 Oxygen Delivery Method O2 Source BIPAP BIPAP BIPAP If not protocol: Oxygen Flow, liters/minute Fraction of Inspired Oxygen (FIO2) FiO2 (%) Sedation scale Pain Intensity 0 0 Pain Intensity [Generalized] 06/07/24 03:09 06/07/24 03:15 06/07/24 03:30 Temperature Temperature Source Pulse Rate 85 82 Pulse Rate [Monitoring electrodes] Respiratory Rate 19 18 Blood Pressure 100/71 110/73 Blood Pressure [Left Brachial artery] O2 Saturation 93 93 Oxygen Delivery Method O2 Source BIPAP BIPAP If not protocol: Oxygen Flow, liters/minute Fraction of Inspired Oxygen (FIO2) 35 FiO2 (%) Sedation scale Pain Intensity 0 0 Pain Intensity [Generalized] 06/07/24 03:45 06/07/24 04:05 06/07/24 04:06 Temperature Temperature Source Pulse Rate 79 74 76 Pulse Rate [Monitoring electrodes] Respiratory Rate 18 17 Blood Pressure 96/61 96/61 Blood Pressure [Left Brachial artery] O2 Saturation 91 L 90 L Oxygen Delivery Method O2 Source BIPAP BIPAP If not protocol: Oxygen Flow, liters/minute Fraction of Inspired Oxygen (FIO2) 35 FiO2 (%) Sedation scale Pain Intensity 0 0 Pain Intensity [Generalized] 06/07/24 04:15 06/07/24 04:30 06/07/24 04:35 Temperature Temperature Source Pulse Rate 76 74 70 Pulse Rate [Monitoring electrodes] Respiratory Rate 12 19 Blood Pressure 98/71 112/74 Blood Pressure [Left Brachial artery] O2 Saturation 81 L Oxygen Delivery Method O2 Source BIPAP BIPAP If not protocol: Oxygen Flow, liters/minute Fraction of Inspired Oxygen (FIO2) 40 FiO2 (%) Sedation scale Pain Intensity 0 0 Pain Intensity [Generalized] 06/07/24 04:48 06/07/24 05:04 06/07/24 05:04 Temperature 36.7 C Temperature Source Tympanic Pulse Rate 67 77 69 Pulse Rate [Monitoring electrodes] Respiratory Rate 18 22 17 Blood Pressure 102/71 99/74 124/84 Blood Pressure [Left Brachial artery] O2 Saturation 94 100 100 Oxygen Delivery Method O2 Source BIPAP Room air BIPAP If not protocol: Oxygen Flow, liters/minute Fraction of Inspired Oxygen (FIO2) FiO2 (%) Sedation scale Pain Intensity 0 Pain Intensity [Generalized] 06/07/24 06:15 06/07/24 07:00 06/07/24 07:34 Temperature Temperature Source Pulse Rate 60 Pulse Rate [Monitoring electrodes] 63 64 Respiratory Rate 21 21 Blood Pressure Blood Pressure [Left Brachial artery] 97/65 113/68 O2 Saturation 100 92 Oxygen Delivery Method O2 Source AVAPS AVAPS If not protocol: Oxygen Flow, liters/minute Fraction of Inspired Oxygen (FIO2) 35 FiO2 (%) 40 40 Sedation scale 3-Responsive to vigorous 3-Responsive to vigorous Pain Intensity Pain Intensity [Generalized] 06/07/24 08:00 06/07/24 08:05 06/07/24 08:36 Temperature 36.4 C L Temperature Source Skin Pulse Rate Pulse Rate [Monitoring electrodes] 59 L Respiratory Rate 16 Blood Pressure Blood Pressure [Left Brachial artery] 81/49 L 92/54 L O2 Saturation 86 L 91 L Oxygen Delivery Method O2 Source BIPAP BIPAP If not protocol: Oxygen Flow, liters/minute Fraction of Inspired Oxygen (FIO2) FiO2 (%) 40 40 Sedation scale 3-Responsive to vigorous Pain Intensity Pain Intensity [Generalized] 06/07/24 09:00 06/07/24 10:00 06/07/24 10:31 Temperature Temperature Source Pulse Rate 55 L Pulse Rate [Monitoring electrodes] 59 L 55 L Respiratory Rate 16 18 Blood Pressure Blood Pressure [Left Brachial artery] 93/49 L 103/57 L O2 Saturation 94 92 Oxygen Delivery Method O2 Source BIPAP BIPAP If not protocol: Oxygen Flow, liters/minute Fraction of Inspired Oxygen (FIO2) 40 FiO2 (%) 40 40 Sedation scale 3-Responsive to vigorous 2-Arouses with tactile Pain Intensity Pain Intensity [Generalized] 06/07/24 11:00 06/07/24 11:08 06/07/24 11:40 Temperature Temperature Source Pulse Rate Pulse Rate [Monitoring electrodes] 52 L Respiratory Rate 17 Blood Pressure Blood Pressure [Left Brachial artery] 111/66 O2 Saturation 90 L Oxygen Delivery Method O2 Source BIPAP If not protocol: Oxygen Flow, liters/minute 4 4 Fraction of Inspired Oxygen (FIO2) FiO2 (%) 40 Sedation scale 2-Arouses with tactile Pain Intensity Pain Intensity [Generalized] 06/07/24 12:00 06/07/24 12:00 06/07/24 13:00 Temperature Temperature Source Pulse Rate Pulse Rate [Monitoring electrodes] 61 83 Respiratory Rate 21 22 Blood Pressure Blood Pressure [Left Brachial artery] 102/74 111/66 O2 Saturation 98 90 L Oxygen Delivery Method O2 Source Nasal cannula Nasal cannula If not protocol: Oxygen Flow, liters/minute 4 4 Fraction of Inspired Oxygen (FIO2) FiO2 (%) Sedation scale 0-Fully awake 0-Fully awake Pain Intensity 0 Pain Intensity [Generalized] 0 06/07/24 14:04 06/07/24 14:04 Temperature Temperature Source Pulse Rate Pulse Rate [Monitoring electrodes] Respiratory Rate Blood Pressure Blood Pressure [Left Brachial artery] O2 Saturation Oxygen Delivery Method O2 Source If not protocol: Oxygen Flow, liters/minute Fraction of Inspired Oxygen (FIO2) FiO2 (%) Sedation scale Pain Intensity 5 5 Pain Intensity [Generalized] Oxygen O2 Source [With Activity] Room air O2 Source [Without Activity] Room air O2 Source Nasal cannula I&O (Last 24 Hrs): Intake and Output Totals x24h 06/05/24 06/07/24 06/07/24 23:59 00:59 23:59 Intake Total 150 / 150 Output Total 525 / 525 Balance -375 / -375 Comments/Notes: Exam: * Limited due to patient being asleep. Constitutional: * Pt is asleep with head tilted to right side, currently unrousable to physical or verbal stimuli. * She is extremely obese, BMI 42.2. HEENT: * Neck: supple and non-restricted to passive ROM. * Eyes: pupils dilated slowly and symmetrically to light. No icterus, Cardiovascular: * Normal rate and rhythm. * No murmurs, rubs, gallops, or extra sounds. Pulmonary: * Prolonged expiratory phase and decreased tidal volume. * Slow, snoring inspiration. * Phlegm caused gurgling with expiration. * Inspiratory and course expiratory rhonchi. Lower Extremities: * Left leg is shortened and internally rotated. * [place] edema and mild stasis dermatitis present just superior to left medial malleolus. * Mini varicose veins present bilaterally on ankles and superior surfaces of feet. * Scattered bruising present bilaterally. * Bruising of left 2nd-4th toes. * Pedal pulses present, L>R. Skin * Visible skin is warm and intact. Results Results: Laboratory Results WBC 16.3 x10^3/uL (4.8-10.8) H 06/07/24 01:45 RBC 4.43 10^6/uL (4.20-5.40) 06/07/24 01:45 Hgb 12.4 g/dL (12.0-16.0) 06/07/24 01:45 Hct 42.8 % (37.0-47.0) 06/07/24 01:45 MCV 96.6 fL (81.0-99.0) 06/07/24 01:45 MCH 28.0 pg (27.0-31.0) 06/07/24 01:45 MCHC 29.0 g/dL (32.0-36.0) L 06/07/24 01:45 RDW 15.3 % (12.0-15.0) H 06/07/24 01:45 Plt Count 152 10^3/uL (130-450) 06/07/24 01:45 MPV 9.8 fL (7.9-10.8) 06/07/24 01:45 Neut # (Auto) 12.7 10^3/uL (1.5-6.6) H 06/07/24 01:45 Lymph # (Auto) 1.9 10^3/uL (1.5-3.5) 06/07/24 01:45 [place] # (Auto) 1.5 10^3/uL (0.0-1.0) H 06/07/24 01:45 Eos # (Auto) 0.1 10^3/uL (0.0-0.7) 06/07/24 01:45 Baso # (Auto) 0.0 10^3/uL (0.0-0.1) 06/07/24 01:45 Absolute Nucleated RBC 0.00 x10^3/uL 06/07/24 01:45 Nucleated RBC % 0.0 /100WBC 06/07/24 01:45 Bld Gas Analysis Time 72206/07/24 07:15 Sample Site RIGHT RADIAL 06/07/24 07:15 ABG pH 7.37 (7.35-7.45) 06/07/24 07:15 ABG pCO2 61 mmHg (34-45) H* 06/07/24 07:15 ABG pO2 103 mmHg (83-108) 06/07/24 07:15 ABG HCO3 35.5 mmol/L (22.0-26.0) H 06/07/24 07:15 ABG Total CO2 37.3 mmol/L (21.0-29.0) H 06/07/24 07:15 ABG O2 Saturation 99 % (95-98) H 06/07/24 07:15 ABG Base Excess 10.0 mmol/L (-2.0-3.0) H 06/07/24 07:15 Esdras Test POSITIVE 06/07/24 07:15 VBG pH 7.353 (7.31-7.41) 06/07/24 04:30 VBG pCO2 65.9 mmHg (41-51) H 06/07/24 04:30 VBG pO2 48.7 mmHg (25-47) H 06/07/24 04:30 VBG HCO3 37.0 mmol/L (23-28) H 06/07/24 04:30 VBG Total CO2 39.0 mmol/L (24-29) H 06/07/24 04:30 VBG O2 Saturation 76.0 % (60-80) 06/07/24 04:30 VBG Base Excess 11.2 mmol/L (-2 - +2) H 06/07/24 04:30 Respiration Rate 18 b/min 06/07/24 07:15 O2 Delivery Device BiPAP 06/07/24 07:15 Vent Mode AVAPS 06/07/24 07:15 FiO2 40.00 06/07/24 07:15 Tidal Volume 500 mL 06/07/24 07:15 EPAP 6 cmH2O 06/07/24 07:15 Sodium 137 mmol/L (135-145) 06/07/24 13:15 Potassium 4.9 mmol/L (3.5-4.5) H 06/07/24 13:15 Chloride 99 mmol/L (101-111) L 06/07/24 13:15 Carbon Dioxide 35 mmol/L (21-32) H 06/07/24 13:15 Anion Gap 3.0 (6-13) L 06/07/24 13:15 BUN 38 mg/dL (6-20) H 06/07/24 13:15 Creatinine 1.3 mg/dL (0.6-1.3) 06/07/24 13:15 Estimated GFR (MDRD) 43 (>89) L 06/07/24 13:15 Glucose 158 mg/dL (74-104) H 06/07/24 13:15 POC Whole Bld Glucose 157 mg/dL (70-100) 06/07/24 11:46 Calcium 8.7 mg/dL (8.5-10.3) 06/07/24 13:15 Total Bilirubin 0.7 mg/dL (0.2-1.0) 06/07/24 01:45 AST 45 IU/L (10-42) H 06/07/24 01:45 ALT 34 IU/L (10-60) 06/07/24 01:45 Alkaline Phosphatase 96 IU/L (42-121) 06/07/24 01:45 Total Protein 7.7 g/dL (6.4-8.9) 06/07/24 01:45 Albumin 3.5 g/dL (3.2-5.5) 06/07/24 01:45 Globulin 4.2 g/dL (2.1-4.2) 06/07/24 01:45 Albumin/Globulin Ratio 0.8 (1.0-2.2) L 06/07/24 01:45 Lipase 11 U/L (11-82) 06/07/24 01:45 Urine Color DARK YELLOW 06/07/24 12:41 Urine Clarity SL. CLOUDY (CLEAR) 06/07/24 12:41 Urine pH 6.0 PH (5.0-7.5) 06/07/24 12:41 Ur Specific [place] 1.025 (1.002-1.030) 06/07/24 12:41 Urine Protein 100 mg/dL (NEGATIVE) H 06/07/24 12:41 Urine Glucose (UA) NEGATIVE mg/dL (NEGATIVE) 06/07/24 12:41 Urine Ketones NEGATIVE mg/dL (NEGATIVE) 06/07/24 12:41 Urine Occult Blood NEGATIVE (NEGATIVE) 06/07/24 12:41 Urine Nitrite POSITIVE (NEGATIVE) H 06/07/24 12:41 Urine Bilirubin NEGATIVE (NEGATIVE) 06/07/24 12:41 Urine Urobilinogen 0.2 (NORMAL) E.U./dL (NORMAL) 06/07/24 12:41 Ur Leukocyte Esterase SMALL (NEGATIVE) H 06/07/24 12:41 Urine RBC 0-5 /HPF (0-5) 06/07/24 12:41 Urine WBC >25 /HPF (0-5) H 06/07/24 12:41 Ur Squamous Epith Cells FEW Squamous (<= Few) 06/07/24 12:41 Urine Bacteria Moderate /HPF (None Seen) H 06/07/24 12:41 Ur Microscopic Review INDICATED 06/07/24 12:41 Urine Culture Comments INDICATED 06/07/24 12:41 Nasal Adenovirus (PCR) NOT DETECTED 06/07/24 01:40 Nasal B. parapertussis DNA (PCR) NOT DETECTED 06/07/24 01:40 Nasal Coronavir 229E PCR NOT DETECTED 06/07/24 01:40 Nasal Coronavir HKU1 PCR DETECTED A 06/07/24 01:40 Nasal Coronavir NL63 PCR NOT DETECTED 06/07/24 01:40 Nasal Coronavir OC43 PCR NOT DETECTED 06/07/24 01:40 Nasal Enterovir/Rhinovir PCR NOT DETECTED 03 01:40 Nasal Influenza B PCR NOT DETECTED 06/07/24 01:40 Nasal Influenza A PCR NOT DETECTED 06/07/24 01:40 Nasal Parainfluen 1 PCR NOT DETECTED 06/07/24 01:40 Nasal Parainfluen 2 PCR NOT DETECTED 06/07/24 01:40 Nasal Parainfluen 3 PCR NOT DETECTED 06/07/24 01:40 Nasal Parainfluen 4 PCR NOT DETECTED 06/07/24 01:40 Nasal RSV (PCR) NOT DETECTED 06/07/24 01:40 Nasal Screen MRSA (PCR) NEGATIVE (NEGATIVE) 06/07/24 06:30 Nasal B.pertussis DNA PCR NOT DETECTED 06/07/24 01:40 Nasal C.pneumoniae (PCR) NOT DETECTED 06/07/24 01:40 [place] Human Metapneumo PCR NOT DETECTED 06/07/24 01:40 Nasal M.pneumoniae (PCR) NOT DETECTED 06/07/24 01:40 Nasal SARS-CoV-2 (PCR) NOT DETECTED 06/07/24 01:40 Procedures Procedures: Procedures EXCISION OF LEFT HIP JOINT, OPEN APPROACH (03/12/16) INSERTION OF INFUSION DEV INTO SUP VENA CAVA, PERC APPROACH (03/12/16) INSERTION OF SPACER INTO LEFT HIP JOINT, OPEN APPROACH (12/05/15) INTRODUCTION OF OTH ANTI-INFECT INTO JOINT, OPEN APPROACH (03/12/16) MONITORING OF ARTERIAL PRESSURE, CORONARY, PERC APPROACH (07/16/16) REMOVAL OF INT FIX FROM L UP FEMUR, OPEN APPROACH (07/16/16) REMOVAL OF SPACER FROM LEFT HIP JOINT, OPEN APPROACH (03/12/16) REMOVAL OF SYNTH SUB FROM L HIP JT, FEMORAL, OPEN APPROACH (07/16/16) REMOVAL OF SYNTHETIC SUBSTITUTE FROM L HIP JT, OPEN APPROACH (03/12/16) REPLACEMENT OF L HIP JT WITH METAL ON POLY, OPEN APPROACH (09/12/15) REPLACEMENT OF L HIP JT, FEMORAL WITH METAL, OPEN APPROACH (09/21/15) REPLACEMENT OF LEFT HIP JOINT WITH SYNTH SUB, OPEN APPROACH (03/12/16) TRANSFUSE NONAUT FROZEN PLASMA IN PERIPH VEIN, PERC (03/12/16) TRANSFUSE NONAUT RED BLOOD CELLS IN PERIPH VEIN, PERC (07/16/16) Sepsis Event Note (H) Sepsis Criteria Sepsis Criteria: WBC count greater than 12,000 or less than 4000 ABX Reporting Has patient been on IV antibiotics over the past 48 hours?: Yes Current Medications Current Medications Current Medications: Current Medications Generic Name Dose Route Start Last Admin Trade Name Freq PRN Reason Stop Dose Admin Acetaminophen 650 mg 06/07/24 05:17 06/07/24 14:04 Acetaminophen 325 Mg Tablet PO 650 mg Q4HR PRN Administration Pain 1 to 4, or Fever Albuterol 2.5 mg 06/07/24 06:07 Albuterol Neb 2.5 Mg/3 Ml INH RTQ4H PRN Wheezing/ Shortness of breath Albuterol/Ipratropium 3 ml 06/07/24 07:00 06/07/24 12:06 Ipratropium/Albuterol 3 Ml Neb INH 3 ml RTQID RUBÉN Administration Albuterol/Ipratropium 3 ml 06/07/24 05:22 Ipratropium/Albuterol 3 Ml Neb INH Q4HR PRN Wheezing Azithromycin 250 mg 06/07/24 09:00 06/07/24 09:13 Azithromycin 250 Mg Tablet PO Not Given DAILY RUBÉN Budesonide 0.5 mg 06/07/24 19:00 Budesonide 0.5 Mg/2 Ml Neb INH RTBID RUBÉN Ceftriaxone Sodium 1 gm 06/08/24 09:00 Ceftriaxone 1 Gm Vial IVP DAILY RUBÉN Citalopram Hydrobromide 20 mg 06/07/24 09:00 06/07/24 09:13 Citalopram Hydrobromide 20 Mg Tablet PO Not Given DAILY RUBÉN Dexamethasone Sodium Phosphate 10 mg 06/07/24 09:00 06/07/24 08:49 Dexamethasone 10 Mg/Ml Vial IVP 10 mg DAILY RUBÉN Administration Divalproex Sodium 250 mg 06/07/24 09:00 06/07/24 09:[address] 250 Mg Tablet PO Not Given BID RUBÉN Famotidine 20 mg 06/07/24 09:00 06/07/24 08:50 Famotidine 20 Mg/2 Ml Vial IVP 20 mg BID RUBÉN Administration Guaifenesin 600 mg 06/07/24 09:00 06/07/24 09:14 Guaifenesin 600 Mg Tablet PO Not Given BID RUBÉN Guaifenesin/Codeine Phosphate 5 ml 06/07/24 12:39 06/07/24 14:04 Guaifenesin/Codeine 5 Ml Udc PO 5 ml Q6HR PRN Administration Cough Heparin Sodium (Porcine) 5,000 unit 06/07/24 09:00 06/07/24 08:49 Heparin 5,000 Unit/Ml Vial SUBQ 5,000 unit BID RUBÉN Administration Sodium Chloride 1,000 mls @ 100 mls/hr 06/07/24 06:00 06/07/24 06:25 Normal Saline 0.9% IV 100 mls/hr .Q10H RUBÉN Administration Insulin Human Regular 1 - 5 unit 06/07/24 06:00 06/07/24 12:44 Insulin Regular, Human 300 Unit/3 Ml Pen SUBQ 1 unit Q6HR RUBÉN Administration Protocol Lorazepam 0.5 mg 06/07/24 12:39 06/07/24 13:48 Lorazepam 2 Mg/Ml Vial IVP 0.5 mg Q2H PRN Administration Anxiety Ondansetron HCl 4 mg 06/07/24 05:17 Ondansetron Odt 4 Mg Tablet TL Q6HR PRN Nausea / Vomiting Ondansetron HCl 4 mg 06/07/24 05:17 Ondansetron 4 Mg/2 Ml Vial IVP Q6HR PRN Nausea / Vomiting Oxycodone HCl 5 mg 06/07/24 05:15 06/07/24 14:04 Oxycodone 5 Mg Tablet PO 5 mg Q4HR PRN Administration Pain 5 to 7 Pregabalin 100 mg 06/07/24 09:00 06/07/24 09:14 Pregabalin 100 Mg Capsule PO Not Given BID RUBÉN Pregabalin 50 mg 06/07/24 09:00 06/07/24 09:14 Pregabalin 25 Mg Capsule PO Not Given BID RUBÉN Quetiapine Fumarate 300 mg 06/07/24 21:00 Quetiapine 100 Mg Tablet PO HS [facility] Sodium Chloride 10 ml 06/07/24 09:00 06/07/24 08:50 Sodium Chloride Flush 0.9% 10 Ml Syringe IVP 10 ml 0100,0900,1700 RUBÉN Administration Sodium Chloride 10 ml 06/07/24 05:17 06/07/24 06:25 Sodium Chloride Flush 0.9% 10 Ml Syringe IVP 10 ml PRN PRN Administration NEEDED PER PROVIDER ORDERS Sterile Water 10 ml 06/08/24 09:00 Water For Injection,Sterile 10 Ml Vial MC DAILY [facility] Trazodone HCl 300 mg 06/07/24 21:00 Trazodone 50 Mg Tablet PO HS RUBÉN
[2024-06-07] MEDS: BUDESONIDE 0.5 MG/2 ML NEB INH SCH (18:01)
[2024-06-07] MEDS: INSULIN LISPRO 300 UNIT/3 ML PEN SUBQ SCH (20:44)
[2024-06-07] MEDS: QUEtiapine 100 MG TABLET PO SCH (20:54)
[2024-06-07] MEDS: traZODone 50 MG TABLET PO SCH (20:55)
[2024-06-08 06:22] LABS: BASOPHILS % (AUTO) 0.1 %; EOSINOPHILS % (AUTO) 0.1 %; HCT - HEMATOCRIT 38.4 % (37.0-47.0); HGB - HEMOGLOBIN 11.2 g/dL (12.0-16.0); LYMPHOCYTES # (AUTO) 1.1 10^3/uL (1.5-3.5); LYMPHOCYTES % (AUTO) 10.3 %; MEAN CORPUSCULAR HGB CONC 29.2 g/dL (32.0-36.0); MEAN PLATELET VOLUME 9.7 fL (7.9-10.8); MONOCYTES # (AUTO) 0.6 10^3/uL (0.0-1.0); MONOCYTES % (AUTO) 5.3 %; NEUTROPHILS # (AUTO) 8.9 10^3/uL (1.5-6.6); NEUTROPHILS % (AUTO) 82.9 %; PLT - PLATELET COUNT 130 10^3/uL (130-450); RED CELL DISTRIBUTION WIDTH 14.9 % (12.0-15.0); WHITE BLOOD COUNT 10.7 x10^3/uL (4.8-10.8)
[2024-06-08 06:33] LABS: VBG PH 7.283 (7.31-7.41)
[2024-06-08 06:37] LABS: MAGNESIUM 1.9 mg/dL (1.7-2.3); PHOSPHORUS 3.5 mg/dL (2.5-5.0)
[2024-06-08 06:50] LABS: CREATININE 1.1 mg/dL (0.6-1.3)
[2024-06-08] MEDS: cefTRIAXone 1 GM VIAL IVP SCH (08:43)
--- NOTE | 2024-06-08 08:53 | PROVIDER PROGRESS NOTE ---
Subjective Prog Note Date Prog Note Date: 06/08/24 Subjective Pt reports feeling: Improved Subjective: Tere was awake and actively moving around in her bed. She says she is still not sure why she is here or what happened but states "according to [us] she is having trouble breathing". She states she is feeling okay and that she appreciates us talking to her. She says she can breathe right now and denied shortness of breath. She says her legs feel much better. She denies any abdominal pain, headaches, chest pain, or changes in vision. She says she always takes her medication when she is at home and is "ready to go today because it is a good day". Current Medications Current Medications Current Medications: Current Medications Generic Name Dose Route Start Last Admin Trade Name Freq PRN Reason Stop Dose Admin Acetaminophen 650 mg 06/07/24 05:17 06/07/24 14:04 Acetaminophen 325 Mg Tablet PO 650 mg Q4HR PRN Administration Pain 1 to 4, or Fever Albuterol 2.5 mg 06/07/24 06:07 Albuterol Neb 2.5 Mg/3 Ml INH RTQ4H PRN Wheezing/ Shortness of breath Albuterol/Ipratropium 3 ml 06/07/24 07:00 06/08/24 07:24 Ipratropium/Albuterol 3 Ml Neb INH 3 ml RTQID RUBÉN Administration Albuterol/Ipratropium 3 ml 06/07/24 05:22 Ipratropium/Albuterol 3 Ml Neb INH Q4HR PRN Wheezing Azithromycin 250 mg 06/07/24 09:00 06/07/24 09:13 Azithromycin 250 Mg Tablet PO Not Given DAILY RUBÉN Budesonide 0.5 mg 06/07/24 19:00 06/08/24 07:24 Budesonide 0.5 Mg/2 Ml Neb INH 0.5 mg RTBID RUBÉN Administration Ceftriaxone Sodium 1 gm 06/08/24 09:00 06/08/24 08:43 Ceftriaxone 1 Gm Vial IVP 1 gm DAILY RUBÉN Administration Citalopram Hydrobromide 20 mg 06/07/24 09:00 06/07/24 09:13 Citalopram Hydrobromide 20 Mg Tablet PO Not Given DAILY RUBÉN Dexamethasone Sodium Phosphate 10 mg 06/07/24 09:00 06/08/24 08:43 Dexamethasone 10 Mg/Ml Vial IVP 10 mg DAILY RUBÉN Administration Divalproex Sodium 250 mg 06/07/24 09:00 06/07/24 20:[address] 250 Mg Tablet PO 250 mg BID RUBÉN Administration Famotidine 20 mg 06/07/24 09:00 06/08/24 08:43 Famotidine 20 Mg/2 Ml Vial IVP 20 mg BID RUBÉN Administration Guaifenesin 600 mg 06/07/24 09:00 06/07/24 20:54 Guaifenesin 600 Mg Tablet PO 600 mg BID RUBÉN Administration Guaifenesin/Codeine Phosphate 5 ml 06/07/24 12:39 06/07/24 14:04 Guaifenesin/Codeine 5 Ml Udc PO 5 ml Q6HR PRN Administration Cough Heparin Sodium (Porcine) 5,000 unit 06/07/24 09:00 06/08/24 08:43 Heparin 5,000 Unit/Ml Vial SUBQ 5,000 unit BID [facility] Administration Insulin Human Lispro 2 - 10 unit 06/07/24 21:00 06/07/24 20:44 Insulin Lispro 300 Unit/3 Ml Pen SUBQ Not Given 0800,1200,1700,2100 [facility] Protocol Nicotine 1 patch 06/08/24 09:00 Nicotine 21 Mg Patch TOP DAILY [facility] Ondansetron HCl 4 mg 06/07/24 05:17 Ondansetron Odt 4 Mg Tablet TL Q6HR PRN Nausea / Vomiting Ondansetron HCl 4 mg 06/07/24 05:17 Ondansetron 4 Mg/2 Ml Vial IVP Q6HR PRN Nausea / Vomiting Oxycodone HCl 5 mg 06/07/24 05:15 06/08/24 01:27 Oxycodone 5 Mg Tablet PO 5 mg Q4HR PRN Administration Pain 5 to 7 Pregabalin 100 mg 06/07/24 09:00 06/07/24 20:54 Pregabalin 100 Mg Capsule PO 100 mg BID [facility] Administration Pregabalin 50 mg 06/07/24 09:00 06/07/24 20:54 Pregabalin 25 Mg Capsule PO 50 mg BID RUBÉN Administration Quetiapine Fumarate 300 mg 06/07/24 21:00 06/07/24 20:54 Quetiapine 100 Mg Tablet PO 300 mg HS [facility] Administration Sodium Chloride 10 ml 06/07/24 09:00 06/08/24 01:22 Sodium Chloride Flush 0.9% 10 Ml Syringe IVP Not Given 0100,0900,1700 RUBÉN Sodium Chloride 10 ml 06/07/24 05:17 06/07/24 06:25 Sodium Chloride Flush 0.9% 10 Ml Syringe IVP 10 ml PRN PRN Administration NEEDED PER PROVIDER ORDERS Sterile Water 10 ml 06/08/24 09:00 Water For Injection,Sterile 10 Ml Vial MC DAILY RUBÉN Trazodone HCl 300 mg 06/07/24 21:00 06/07/24 20:55 Trazodone 50 Mg Tablet PO 300 mg HS RUBÉN Administration Objective Vital Signs/Intake & Output Reviewed Vital Signs: Yes Vital Signs: Vital Signs x48h Pulse Pulse Resp BP Pulse Ox O2 Flow Rate 06/08/24 07:26 52 L 18 06/08/24 07:26 50 L 06/08/24 07:19 3 06/08/24 07:00 64 10 L 112/69 97 3 06/08/24 06:00 56 L 14 106/72 97 3 06/08/24 05:00 61 12 112/68 95 3 06/08/24 04:00 64 14 110/67 94 3 06/08/24 03:00 64 13 107/66 95 3 06/08/24 02:00 61 14 124/79 98 3 06/08/24 01:00 59 L 14 137/84 H 100 3 06/08/24 01:00 3 Intake & Output: Intake & Output 06/05/24 06/07/24 06/07/24 06/08/24 23:59 00:59 23:59 23:59 Intake Total 1410 / 1410 1100 / 1100 Output Total 700 / 700 250 / 250 Balance 710 / 710 850 / 850 Weight (kg) 118.5 kg 121.5 kg Objective General Appearance: positive No acute distress and Alert; negative Anxious Eyes Bilateral: positive Normal inspection, PERRL and EOMI ENT: positive ENT inspection nml, Pharynx nml and No signs of dehydration Neck: positive Nml inspection, Thyroid nml and No JVD Respiratory: positive Chest non-tender, No respiratory distress and Rhonchi; negative Wheezes (mild expiratory wheezing noted) or Rales Cardiovascular: positive Regular rate & rhythm, No murmur, No gallop and Bradycardia; negative Tachycardia or Systolic murmur Abdomen: positive Non-tender, No organomegaly, Nml bowel sounds and No distention; negative Hepatomegaly, Splenomegaly or Mass Back: positive Nml inspection; negative CVA tenderness (R) or CVA tenderness (L) Skin: positive Color nml, Warm and Dry Extremities: positive Non-tender, Full ROM and Nml appearance Neurologic/Psychiatric: positive Oriented x3, Motor nml and Mood/affect nml; negative Weakness Comments/Other: Exam: Constitutional: * Alert and talkative. * She is extremely obese, BMI 42.2. HEENT: * Neck: * No JVD. * Eyes: * PERRL * EOMI Cardiovascular: * Normal rate and rhythm. * No murmurs, rubs, gallops, or extra sounds. Pulmonary: * O2 via nasal cannula. * Prolonged expiratory phase and decreased tidal volume. * Productive coughing throughout exam. * Breathing and talking with minimal difficulty. * Inspiratory and course expiratory rhonchi, has improved since yesterday. Lower Extremities: * Left leg is shortened and internally rotated. * [place] edema and mild stasis dermatitis present just superior to left medial malleolus. * mildly improved since yesterday. * Mini varicose veins present bilaterally on ankles and superior surfaces of feet. * Scattered bruising present bilaterally. * Bruising of left 2nd-4th toes. * Pedal pulses present, L>R. Skin * Visible skin is warm and intact. Lab Results 06/08/24 06:15 06/08/24 06:15 Other Labs: Lab Results x24hrs 06/08/24 06/07/24 06/07/24 Range/Units 06:15 20:32 17:52 WBC 10.7 (4.8-10.8) x10^3/uL RBC 4.00 L (4.20-5.40) 10^6/uL Hgb 11.2 L (12.0-16.0) g/dL Hct 38.4 (37.0-47.0) % MCV 96.0 (81.0-99.0) fL MCH 28.0 (27.0-31.0) pg MCHC 29.2 L (32.0-36.0) g/dL RDW 14.9 (12.0-15.0) % Plt Count 130 (130-450) 10^3/uL MPV 9.7 (7.9-10.8) fL Neut # (Auto) 8.9 H (1.5-6.6) 10^3/uL Lymph # (Auto) 1.1 L (1.5-3.5) 10^3/uL Nelson # (Auto) 0.6 (0.0-1.0) 10^3/uL Eos # (Auto) 0.0 (0.0-0.7) 10^3/uL Baso # (Auto) 0.0 (0.0-0.1) 10^3/uL Absolute Nucleated RBC 0.00 x10^3/uL Nucleated RBC % 0.0 /100WBC VBG pH 7.283 L (7.31-7.41) Ionized Calcium 1.20 (1.09-1.30) mmol/L Sodium 138 (135-145) mmol/L Potassium 5.0 H (3.5-4.5) mmol/L Chloride 102 (101-111) mmol/L Carbon Dioxide 34 H (21-32) mmol/L Anion Gap 2.0 L (6-13) BUN 36 H (6-20) mg/dL Creatinine 1.1 (0.6-1.3) mg/dL Estimated GFR (MDRD) 51 L (>89) Glucose 116 H (74-104) mg/dL POC Whole Bld Glucose 140 124 (70-100) mg/dL Calcium 8.0 L (8.5-10.3) mg/dL Phosphorus 3.5 (2.5-5.0) mg/dL Magnesium 1.9 (1.7-2.3) mg/dL Urine Color Urine Clarity (CLEAR) Urine pH (5.0-7.5) PH Ur Specific [place] (1.002-1.030) Urine Protein (NEGATIVE) mg/dL Urine Glucose (UA) (NEGATIVE) mg/dL Urine Ketones (NEGATIVE) mg/dL Urine Occult Blood (NEGATIVE) Urine Nitrite (NEGATIVE) Urine Bilirubin (NEGATIVE) Urine Urobilinogen (NORMAL) E.U./dL Ur Leukocyte Esterase (NEGATIVE) Urine RBC (0-5) /HPF Urine WBC (0-5) /HPF Ur Squamous Epith Cells (<= Few) Urine Bacteria (None Seen) /HPF Ur Microscopic Review Urine Culture Comments Nasal Screen MRSA (PCR) (NEGATIVE) 06/07/24 06/07/24 06/07/24 Range/Units 13:15 12:41 11:46 WBC (4.8-10.8) x10^3/uL RBC (4.20-5.40) 10^6/uL Hgb (12.0-16.0) g/dL Hct (37.0-47.0) % MCV (81.0-99.0) fL MCH (27.0-31.0) pg MCHC (32.0-36.0) g/dL RDW (12.0-15.0) % Plt Count (130-450) 10^3/uL MPV (7.9-10.8) fL Neut # (Auto) (1.5-6.6) 10^3/uL Lymph # (Auto) (1.5-3.5) 10^3/uL Nelson # (Auto) (0.0-1.0) 10^3/uL Eos # (Auto) (0.0-0.7) 10^3/uL Baso # (Auto) (0.0-0.1) 10^3/uL Absolute Nucleated RBC x10^3/uL Nucleated RBC % /100WBC VBG pH (7.31-7.41) Ionized Calcium (1.09-1.30) mmol/L Sodium 137 (135-145) mmol/L Potassium 4.9 H (3.5-4.5) mmol/L Chloride 99 L (101-111) mmol/L Carbon Dioxide 35 H (21-32) mmol/L Anion Gap 3.0 L (6-13) BUN 38 H (6-20) mg/dL Creatinine 1.3 (0.6-1.3) mg/dL Estimated GFR (MDRD) 43 L (>89) Glucose 158 H (74-104) mg/dL POC Whole Bld Glucose 157 (70-100) mg/dL Calcium 8.7 (8.5-10.3) mg/dL Phosphorus (2.5-5.0) mg/dL Magnesium (1.7-2.3) mg/dL Urine Color DARK YELLOW Urine Clarity SL. CLOUDY (CLEAR) Urine pH 6.0 (5.0-7.5) PH Ur Specific [place] 1.025 (1.002-1.030) Urine Protein 100 H (NEGATIVE) mg/dL Urine Glucose (UA) NEGATIVE (NEGATIVE) mg/dL Urine Ketones NEGATIVE (NEGATIVE) mg/dL Urine Occult Blood NEGATIVE (NEGATIVE) Urine Nitrite POSITIVE H (NEGATIVE) Urine Bilirubin NEGATIVE (NEGATIVE) Urine Urobilinogen 0.2 (NORMAL) (NORMAL) E.U./dL Ur Leukocyte Esterase SMALL H (NEGATIVE) Urine RBC 0-5 (0-5) /HPF Urine WBC >25 H (0-5) /HPF Ur Squamous Epith Cells FEW Squamous (<= Few) Urine Bacteria Moderate H (None Seen) /HPF Ur Microscopic Review INDICATED Urine Culture Comments INDICATED Nasal Screen MRSA (PCR) (NEGATIVE) 06/07/24 Range/Units 06:30 WBC (4.8-10.8) x10^3/uL RBC (4.20-5.40) 10^6/uL Hgb (12.0-16.0) g/dL Hct (37.0-47.0) % MCV (81.0-99.0) fL MCH (27.0-31.0) pg MCHC (32.0-36.0) g/dL RDW (12.0-15.0) % Plt Count (130-450) 10^3/uL MPV (7.9-10.8) fL Neut # (Auto) (1.5-6.6) 10^3/uL Lymph # (Auto) (1.5-3.5) 10^3/uL Nelson # (Auto) (0.0-1.0) 10^3/uL Eos # (Auto) (0.0-0.7) 10^3/uL Baso # (Auto) (0.0-0.1) 10^3/uL Absolute Nucleated RBC x10^3/uL Nucleated RBC % /100WBC VBG pH (7.31-7.41) Ionized Calcium (1.09-1.30) mmol/L Sodium (135-145) mmol/L Potassium (3.5-4.5) mmol/L Chloride (101-111) mmol/L Carbon Dioxide (21-32) mmol/L Anion Gap (6-13) BUN (6-20) mg/dL Creatinine (0.6-1.3) mg/dL Estimated GFR (MDRD) (>89) Glucose (74-104) mg/dL POC Whole Bld Glucose (70-100) mg/dL Calcium (8.5-10.3) mg/dL Phosphorus (2.5-5.0) mg/dL Magnesium (1.7-2.3) mg/dL Urine Color Urine Clarity (CLEAR) Urine pH (5.0-7.5) PH Ur Specific [place] (1.002-1.030) Urine Protein (NEGATIVE) mg/dL Urine Glucose (UA) (NEGATIVE) mg/dL Urine Ketones (NEGATIVE) mg/dL Urine Occult Blood (NEGATIVE) Urine Nitrite (NEGATIVE) Urine Bilirubin (NEGATIVE) Urine Urobilinogen (NORMAL) E.U./dL Ur Leukocyte Esterase (NEGATIVE) Urine RBC (0-5) /HPF Urine WBC (0-5) /HPF Ur Squamous Epith Cells (<= Few) Urine Bacteria (None Seen) /HPF Ur Microscopic Review Urine Culture Comments Nasal Screen MRSA (PCR) NEGATIVE (NEGATIVE) Diagnostic Imaging Diagnostic Imaging Results: positive Final report reviewed ABX Reporting Has patient been on IV antibiotics over the past 48 hours?: Yes Sepsis Event Note (H) Sepsis Criteria Sepsis Criteria: WBC count greater than 12,000 or less than 4000 Assessment/Plan Problem List (1) Acute hypoxic respiratory failure: Impression: Likely due to COPD exacerbation. Ativan was discontinued and Tere is now much more responsive. She was on BiPAP but this was switched to 3L O2 via nasal cannula now that she is fully awake. Recent SPO2 was 91 on 3L. She is not in any acute respiratory distress and was able to productively cough. Continue with current medications and adjust oxygen as needed. * Consider flutter valve to promote clearing of mucus. * Continue with medications started in ER and home medications * Decardon IVP daily - will switch to oral prednisone tomorrow * Rocephin IVP daily - continue for CAP and pneumonia * Budesonide BID * Duoneb RTQID RUBÉN * Guaifenesin/Codeine Q6HR PRN * Azithromycin 250 mg PO daily - given today since she is awake and able to swallow. (2) COPD exacerbation: Impression: * See above (3) GARTH (acute kidney injury): Impression: Resolved. Creatinine back at baseline. Chronic hyperkalemia. Potassium is 5.0 this AM, previously 4.9. * Continue IVF. * Trend BMP. (4) Generalized anxiety disorder: Impression: Ativan was discontinued this AM. Previous notes from behavioral medicine on 05/13 mentioned concern for the level of sedation she was portraying. It was recommended that her doses be reduced or switched to BID daily. * Reduced Trazodone from 300 mg to 200 mg PO HS * Continue home medications * Pregabalin 150mg BID * Quetiapine 300mg at HS * Citalopram 20mg daily * Divalproex Dr 250mg BID (5) DM2 (diabetes mellitus, type 2): Impression: Fasting blood glucose was 93. Lispro was not administered this morning. She has not been awake enough to eat anything, which explains the continued decrease in blood sugar. * Continue to monitor her glucose and administer insulin as needed. * Plan for carb controlled diet. 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 Chronic, stable. (7) Wheelchair dependent: Impression: Supportive care.
[2024-06-08 09:46] LABS: ESTIMATED AVERAGE GLUCOSE 123 mg/dL (70-100); HEMOGLOBIN A1c% 5.9 % (4.27-6.07)
[2024-06-08] MEDS: NICOTINE 21 MG PATCH TOP SCH (10:18)
[2024-06-08] MEDS: traZODone 50 MG TABLET PO SCH (21:06)
[2024-06-09 04:18] VITALS: BP 116/69; TEMP 98.1; O2SAT 98
[2024-06-09] MEDS: polyethylene glycoL 3350 17 GM PACKET PO SCH (08:20)
--- NOTE | 2024-06-09 09:20 | PROVIDER PROGRESS NOTE ---
Subjective Prog Note Date Prog Note Date: 06/09/24 Prog Note Time: 09:50 Subjective Pt reports feeling: Improved Subjective: Tere is a 54 year old female with a history of COPD, Type 2 diabetes, anxiety, and bipolar 2. She was originally admited for acute hypoxic respiratory failure after being found unresponsive at her adult long term. Today she is very alert and says she has no complaints. She says she's sad that she slept through her birthday yesterday but is otherwise in good spirits. This morning she had a bowel movement and denies any abdominal pain, urinary changes, flank pain, nausea/ vomiting, or fever. Her cough has mildly improved and she denies any chest pain, shortness of breath, palpitations, numbness, or myalgias. Right now she is aware of where she is, who she is, and a basic idea of why she's here and denies any headaches, vision changes, photophobia, or sleep disturbances. Current Medications Current Medications Current Medications: Current Medications Generic Name Dose Route Start Last Admin Trade Name Freq PRN Reason Stop Dose Admin Acetaminophen 650 mg 06/07/24 05:17 06/07/24 14:04 Acetaminophen 325 Mg Tablet PO 650 mg Q4HR PRN Administration Pain 1 to 4, or Fever Albuterol 2.5 mg 06/07/24 06:07 Albuterol Neb 2.5 Mg/3 Ml INH RTQ4H PRN Wheezing/ Shortness of breath Albuterol/Ipratropium 3 ml 06/07/24 07:00 06/09/24 08:06 Ipratropium/Albuterol 3 Ml Neb INH 3 ml RTQID RUBÉN Administration Albuterol/Ipratropium 3 ml 06/07/24 05:22 Ipratropium/Albuterol 3 Ml Neb INH Q4HR PRN Wheezing Azithromycin 250 mg 06/07/24 09:00 06/09/24 08:19 Azithromycin 250 Mg Tablet PO 250 mg DAILY RUBÉN Administration Budesonide 0.5 mg 06/07/24 19:00 06/09/24 08:06 Budesonide 0.5 Mg/2 Ml Neb INH 0.5 mg RTBID RUBÉN Administration Ceftriaxone Sodium 1 gm 06/08/24 09:00 06/09/24 08:18 Ceftriaxone 1 Gm Vial IVP 1 gm DAILY RUBÉN Administration Citalopram Hydrobromide 20 mg 06/07/24 09:00 06/09/24 08:25 Citalopram Hydrobromide 20 Mg Tablet PO 20 mg DAILY RUBÉN Administration Dexamethasone Sodium Phosphate 10 mg 06/07/24 09:00 06/09/24 08:18 Dexamethasone 10 Mg/Ml Vial IVP 10 mg DAILY RUBÉN Administration Divalproex Sodium 250 mg 06/07/24 09:00 06/09/24 08:[address] 250 Mg Tablet PO 250 mg BID RUBÉN Administration Famotidine 20 mg 06/07/24 09:00 06/09/24 08:18 Famotidine 20 Mg/2 Ml Vial IVP 20 mg BID RUBÉN Administration Guaifenesin 600 mg 06/07/24 09:00 06/09/24 08:19 Guaifenesin 600 Mg Tablet PO 600 mg BID RUBÉN Administration Guaifenesin/Codeine Phosphate 5 ml 06/07/24 12:39 06/07/24 14:04 Guaifenesin/Codeine 5 Ml Udc PO 5 ml Q6HR PRN Administration Cough Heparin Sodium (Porcine) 5,000 unit 06/07/24 09:00 06/09/24 08:18 Heparin 5,000 Unit/Ml Vial SUBQ 5,000 unit BID [facility] Administration Insulin Human Lispro 2 - 10 unit 06/07/24 21:00 06/09/24 08:11 Insulin Lispro 300 Unit/3 Ml Pen SUBQ Not Given 0800,1200,1700,2100 [facility] Protocol Nicotine 1 patch 06/08/24 09:00 06/09/24 08:20 Nicotine 21 Mg Patch TOP 1 patch DAILY RUBÉN Administration Ondansetron HCl 4 mg 06/07/24 05:17 Ondansetron Odt 4 Mg Tablet TL Q6HR PRN Nausea / Vomiting Ondansetron HCl 4 mg 06/07/24 05:17 Ondansetron 4 Mg/2 Ml Vial IVP Q6HR PRN Nausea / Vomiting Oxycodone HCl 5 mg 06/07/24 05:15 06/09/24 08:19 Oxycodone 5 Mg Tablet PO 5 mg Q4HR PRN Administration Pain 5 to 7 Polyethylene Glycol 17 gm 06/09/24 09:00 06/09/24 08:20 Polyethylene Glycol 3350 17 Gm Packet PO 17 gm DAILY RUBÉN Administration Pregabalin 100 mg 06/07/24 09:00 06/09/24 08:19 Pregabalin 100 Mg Capsule PO 100 mg BID [facility]N Administration Pregabalin 50 mg 06/07/24 09:00 06/09/24 08:19 Pregabalin 25 Mg Capsule PO 50 mg BID [facility]UBÉN Administration Quetiapine Fumarate 300 mg 06/07/24 21:00 06/08/24 21:06 Quetiapine 100 Mg Tablet PO 300 mg HS RUBÉN Administration Sodium Chloride 10 ml 06/07/24 09:00 06/09/24 08:21 Sodium Chloride Flush 0.9% 10 Ml Syringe IVP 10 ml 0100,0900,1700 RUBÉN Administration Sodium Chloride 10 ml 06/07/24 05:17 06/08/24 21:07 Sodium Chloride Flush 0.9% 10 Ml Syringe IVP 10 ml PRN PRN Administration NEEDED PER PROVIDER ORDERS Sterile Water 10 ml 06/08/24 09:00 06/09/24 08:18 Water For Injection,Sterile 10 Ml Vial MC 10 ml DAILY RUBÉN Administration Trazodone HCl 200 mg 06/08/24 21:00 06/08/24 21:06 Trazodone 50 Mg Tablet PO 200 mg HS RUBÉN Administration Objective Vital Signs/Intake & Output Reviewed Vital Signs: Yes Vital Signs: Vital Signs x48h Temp Pulse Pulse Resp BP Pulse Ox O2 Flow Rate 06/09/24 08:07 2 06/09/24 08:07 51 L 18 2 06/09/24 04:00 36.7 C 43 L 12 116/69 98 3 Intake & Output: Intake & Output 06/07/24 06/07/24 06/08/24 06/09/24 00:59 23:59 23:59 23:59 Intake Total 1410 / 1410 2550 / 2550 440 / 440 Output Total 700 / 700 500 / 500 350 / 350 Balance 710 / 710 0 / 2050 90 / 90 Weight (kg) 118.5 kg 121.5 kg 120 kg Objective General Appearance: positive No acute distress and Alert Eyes Bilateral: positive Normal inspection, PERRL, EOMI, No lid inflammation, Conjunctivae nml and No scleral icterus ENT: positive ENT inspection nml Neck: positive Nml inspection, Thyroid nml, No JVD and Trachea midline Respiratory: positive Chest non-tender, No respiratory distress, Wheezes (Expiratory musical wheezing. ) and Other (Prolonged expiratory phase and decreased tidal volume. Expiration is still mildly coarse but rhonchi have improved. ) Cardiovascular: positive Regular rate & rhythm, No murmur and Bradycardia Abdomen: positive Non-tender, No organomegaly and Nml bowel sounds Skin: positive Color nml, No rash, Warm and Other (Mildly dry. Not diaphoretic. ) Extremities: positive Non-tender, Full ROM and Other (LE edema has improved. Right LE woody edema the same. Stasis dermatitis present bilaterally. ) Neurologic/Psychiatric: positive Oriented x3, CN's nml (2-12), Motor nml, Mood/affect nml and Other (Not currently anxious or agitated. Normal speech. ) Lab Results 06/09/24 11:30 06/09/24 11:30 Other Labs: Lab Results x24hrs 06/09/24 06/08/24 06/08/24 Range/Units 08:05 20:49 16:43 POC Whole Bld Glucose 75 155 200 (70-100) mg/dL Estimat Average Glucose (70-100) mg/dL Hemoglobin A1c % (4.27-6.07) % 06/08/24 06/08/24 Range/Units 11:31 06:15 POC Whole Bld Glucose 93 (70-100) mg/dL Estimat Average Glucose 123 H (70-100) mg/dL Hemoglobin A1c % 5.9 (4.27-6.07) % Diagnostic Imaging Diagnostic Imaging Comments: No new imaging. ABX Reporting Has patient been on IV antibiotics over the past 48 hours?: Yes Assessment/Plan Problem List (1) Acute hypoxic respiratory failure: Impression: Tere is very alert today and talking without respiratory distress. She still has a mild cough but this may be chronic due to her history of COPD and smoking habits. This morning she is still a bit bradycardic but this may be due to her medications. Her SPO2 is 98 on 2L nasal cannula and her blood pressure is well- controlled at this time. She denies SOB, chest pain, hemoptysis, or palpitations. * Consider discharge in the next 24 hours. * Continue to attempt obtaining labs -- difficult draw. (2) COPD exacerbation: Impression: Chronic, stable. See #1. (3) GARTH (acute kidney injury): Impression: eGFR has returned to her assumed baseline noted on previous discharge notes. History supports chronic hyperkalemia. Do not suspect any renal or urinary infection at this time. Would like to get updated labs before she leaves. * Continue IVF. * Continue to attempt obtaining labs -- difficult draw. * No supplementation recommended at this time. (4) Generalized anxiety disorder: Impression: No subjective or objective signs of anxiety at this time. Continue with home medications and optimize medications to further promote alertness. * Reduced Trazodone from 300 mg to 200 mg PO HS -- she seems to be tolerating this well. * Continue home medications * Pregabalin 150mg BID * Quetiapine 300mg at HS * Citalopram 20mg daily * Divalproex Dr 250mg BID (5) DM2 (diabetes mellitus, type 2): Impression: Fasting blood glucose was 75 this morning, so no insulin was given. Yesterday her glucose was elevated (155-200) in the afternoon, so Lispro was administered. * Continue to monitor her glucose and administer insulin as needed via sliding scale. * Continue carb controlled diet. 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 See #4. (7) Wheelchair dependent: Impression: Supportive care.
[2024-06-09 11:43] LABS: BASOPHILS % (AUTO) 0.1 %; EOSINOPHILS % (AUTO) 0.2 %; HGB - HEMOGLOBIN 11.3 g/dL (12.0-16.0); LYMPHOCYTES # (AUTO) 0.9 10^3/uL (1.5-3.5); LYMPHOCYTES % (AUTO) 10.2 %; MEAN CORPUSCULAR HEMOGLOBIN 28.1 pg (27.0-31.0); MEAN PLATELET VOLUME 9.8 fL (7.9-10.8); MONOCYTES # (AUTO) 0.3 10^3/uL (0.0-1.0); MONOCYTES % (AUTO) 3.7 %; NEUTROPHILS # (AUTO) 7.1 10^3/uL (1.5-6.6); NEUTROPHILS % (AUTO) 84.8 %; PLT - PLATELET COUNT 168 10^3/uL (130-450); RED BLOOD COUNT 4.02 10^6/uL (4.20-5.40); WHITE BLOOD COUNT 8.4 x10^3/uL (4.8-10.8)
[2024-06-09 11:48] LABS: VBG PH 7.341 (7.31-7.41)
[2024-06-09 11:49] LABS: CALCIUM, IONIZED 1.19 mmol/L (1.09-1.30)
[2024-06-09 11:56] LABS: CALCIUM 8.1 mg/dL (8.5-10.3); MAGNESIUM 2.1 mg/dL (1.7-2.3); PHOSPHORUS 2.5 mg/dL (2.5-5.0); POTASSIUM 4.8 mmol/L (3.5-4.5)
--- NOTE | 2024-06-09 13:07 | Discharge Summary ---
"Discharge Summary Admit Date: 06/07/24 Discharge Date: 06/09/24 Discharging Provider: Dr. Jb Matthews Primary Care Provider: Griselda Beaulieu Code Status: Attempt Resuscitation Discharge Facility Name: [facility] DIAGNOSES Admission Diagnoses: Acute on chronic respiratory failure with hypoxia COPD exacerbation COPD/asthma on home 2 L nasal cannula Tobacco use Leukocytosis Acute renal failure Hyponatremia Hyperkalemia Hypertension Type 2 diabetes mellitus Bipolar disorder Anxiety disorder Wheelchair dependent Discharge Diagnoses with Status of Each Condition: Acute hypoxic respiratory failurelikely secondary to COPD. Received IV steroids, azithromycin for 3 days, as well as scheduled DuoNebs. Continue 2 more days of oral prednisone. COPD exacerbationresolved, back on baseline home oxygen. Acute kidney injuryresolved. Hyperkalemiaslightly elevated, advised to follow-up in 1 week outpatient. Generalized anxiety disordercontinue home medications pregabalin, quetiapine, citalopram, Depakote. Npt-qodtsag-kyaprazdm diabetes mellituscontinue home oral antihyperglycemics on discharge. Bipolar disorderchronic, stable. Wheelchair dependencecontinue supportive care. HPI History of Present Illness: Per Dr. Gannon: H&P was conducted via video remotely, using [employer]. [place] is in [place] Physician [place] in [place]. RN is at bedside. 53 yo F with PMH of Bipolar disorder, Anxiety disorder, COPD/Asthma on Home 2L [place] O2, tobacco abuse, Hypertension, DM type [id number], wheelchair- dependent, and is a resident at an Adult Home presented to the ER via EMS after being found unresponsive at the home with low O2 sats and bradycardia. EMS reported low O2 sats and placed pt on BIPAP. Pt has been somnolent and unable to give history. This is pt's 3rd hospitalization for same symptoms in 3 months; pt was most recently D/C'd 3 days ago, on 06/04/24. In the ER, SpO2 95% BIPAP 40%, BP 96/61 WBC 16.3, Na 134, K 5.5, CR 1.7, Coronavirus HKU1 + CXR: NAD Pt was given IVF, Duonebs, Decadron in the ER. CONSULTS | PROCEDURES Consultations: Respiratory therapy Procedures: Chest x-ray HOSPITAL COURSE Hospital Course: Patient is a 54-year-old female with a history of COPD on 2 L of home oxygen, bipolar disorder presented for hypoxia as well as altered mental status. Initially, she was placed on BiPAP. She was given IV steroids, DuoNebs. Her mentation improved back to baseline. She was weaned off the BiPAP, and is now back on her home 2 L of oxygen. While she was here, she had a mild acute kidney injury, as well as hyperkalemia. Her GARTH is resolved. Her potassium is still slightly elevated at 4.8. She was advised to follow-up in the outpatient setting with her primary care provider and recheck his potassium on discharge in 1 week. She also had a urinary tract infection, and she requires 2 more days of oral Macrobid on discharge. Finally, she also has 2 more days of oral steroids left, which have been sent to her pharmacy. Overall, she is improved, back at her baseline oxygen, and stable for discharge back to [facility], her living facility. ALLERGIES Allergies Allergy/AdvReac Type Severity Reaction Status Date / Time No Known Drug Allergies Allergy Verified 06/07/24 01:54 MEDICATIONS Ambulatory Orders Medication Instructions Recorded Confirmed acetaminophen 500 mg tablet 500 mg PO QID PRN Pain #50 tabs 10/14/23 06/07/24 (Acetaminophen Extra Strength) budesonide-formoterol HFA 80 1 inh inhalation BID #10.2 grams 02/04/24 06/07/24 mcg-4.5 mcg/actuation aerosol inhaler (Breyna) ibuprofen 600 mg tablet (IBU) 600 mg PO Q6H PRN pain 04/12/24 06/07/24 quetiapine 300 mg tablet 300 mg PO HS 04/12/24 06/07/24 trazodone 300 mg tablet 300 mg PO HS 04/12/24 06/07/24 albuterol sulfate 90 mcg/actuation 1 - 2 puff inhalation Q4HR PRN 05/06/24 06/07/24 aerosol inhaler (Ventolin HFA) Shortness Of Air/Wheezing #1 ea citalopram 20 mg tablet 20 mg PO DAILY #90 tabs 05/07/24 06/07/24 divalproex 250 mg tablet,delayed 250 mg PO BID #180 tabs 05/07/24 06/07/24 release pregabalin 150 mg capsule (Lyrica) 150 mg PO BID #180 caps 05/24/24 06/07/24 oxycodone 5 mg tablet 5 mg PO Q4HR PRN Pain 5 to 7 #20 06/04/24 06/07/24 tabs ipratropium 0.5 mg-albuterol 3 mg 3 ml inhalation RTQID PRN 06/07/24 06/07/24 (2.5 mg base)/3 mL nebulization shortness of breath or wheezing soln codeine 10 mg-guaifenesin 100 mg/5 5 ml PO Q4H PRN cough 06/08/24 06/08/24 mL oral liquid (Guaifenesin AC) guaifenesin 600 mg tablet, 600 mg PO BID 06/08/24 06/08/24 extended release 12 hr nitrofurantoin 100 mg PO BID 2 days #4 caps 06/09/24 monohydrate/macrocrystals 100 mg capsule (Macrobid) prednisone 20 mg tablet 40 mg (2 x 20 mg) PO DAILY 2 days 06/09/24 #4 tabs PHYSICAL EXAM AT DISCHARGE General Appearance: positive No acute distress and Alert; negative Anxious or Lethargic Eyes Bilateral: positive Normal inspection, PERRL and EOMI ENT: positive ENT inspection nml, Pharynx nml and No signs of dehydration Neck: positive Nml inspection, Thyroid nml, No JVD and Trachea midline Respiratory: positive Chest non-tender, No respiratory distress and Wheezes (mild, improved); negative Rales or Rhonchi Cardiovascular: positive Regular rate & rhythm, No murmur and No gallop; negative Tachycardia or Bradycardia Peripheral Pulses: positive 2+ Abdomen: positive Non-tender; negative Tenderness, Guarding, Rebound, Hepatomegaly, Splenomegaly or Mass Back: positive Nml inspection; negative CVA tenderness (R) or CVA tenderness (L) Skin: positive Color nml, No rash, Warm and Dry Extremities: positive Non-tender, Full ROM, Nml appearance and No pedal edema Neurologic/Psychiatric: positive Oriented x3 and Sensation nml LABS 06/09/24 11:30 06/09/24 11:30 DIAGNOSTIC IMAGING Diagnostic Imaging Results: Final report reviewed FOLLOW UP Follow Up: Follow up with primary care provider. Follow up with sales mgr. TIME SPENT Time Spent in Discharge (Minutes): 35 Discharge Plan Discharge Patient Disposition: , Self Care Condition: Stable Prescriptions: New prednisone 20 mg tablet 40 mg PO DAILY 2 Days Qty: 4 0RF nitrofurantoin monohyd/m-cryst [Macrobid] 100 mg capsule 100 mg PO BID 2 Days Qty: 4 0RF Rx Instructions: must administer with a meal/food Continued budesonide-formoterol [Breyna] 80-4.5 mcg/actuation HFA aerosol inhaler 1 inh inhalation BID Qty: 10.2 3RF citalopram 20 mg tablet 20 mg PO DAILY Qty: 90 0RF divalproex 250 mg tablet,delayed release (DR/EC) 250 mg PO BID Qty: 180 0RF pregabalin [Lyrica] 150 mg capsule 150 mg PO BID Qty: 180 1RF acetaminophen [Acetaminophen Extra Strength] 500 MG tablet 500 mg PO QID PRN (Reason: Pain) Qty: 50 0RF ibuprofen [IBU] 600 mg tablet 600 mg PO Q6H PRN (Reason: pain) quetiapine 300 mg tablet 300 mg PO HS trazodone 300 mg tablet 300 mg PO HS oxycodone 5 mg Tablet 5 mg PO Q4HR PRN (Reason: Pain 5 to 7) Qty: 20 0RF ipratropium-albuterol 0.5 mg-3 mg(2.5 mg base)/3 mL Solution For Nebulization 3 ml inhalation RTQID PRN (Reason: shortness of breath or wheezing) guaifenesin 600 mg tablet extended release 12hr 600 mg PO BID codeine-guaifenesin [Guaifenesin AC] 10-100 mg/5 mL liquid 5 ml PO Q4H PRN (Reason: cough) albuterol sulfate [Ventolin HFA] 90 mcg/actuation HFA aerosol inhaler 1 - 2 puff inhalation Q4HR PRN (Reason: Shortness Of Air/Wheezing) Qty: 1 12RF Discontinued azithromycin 250 mg tablet 250 mg PO DAILY 6 Days Qty: 6 0RF Activity Restrictions: Activity as Tolerated Diet: Regular Health Concerns: You came in because you were very short of breath. You were very confused when you came in as well. We treated you for a COPD exacerbation. You received some IV steroids, as well as breathing treatments. You were also found to have a urinary tract infection, and you received antibiotics for this. I will be sending you home with two more days of oral antibiotics, as well as two more days of steroids. You are back to your normal oxygen of 2 L. You still have a little bit of a cough, which may continue for a few weeks as you recover from this illness. Overall, you are doing much better than when you first come in. Please continue to use your inhalers as needed. Please follow up with your primary care provider. Please have your primary care doctor follow up on your kidney and potassium levels in one week as well. We are glad you are feeling better, thank you for allowing us to take care of you. Print Language: Qatari Patient Instructions: Chronic Lung Disease Prevent Infec, Chronic Lung Disease Resources Stand Alone Forms: PCP List"
[2024-06-09] MEDS ORDERED: FAMOTIDINE 20 MG TABLET PO SCH (21:00)
[2024-06-10] MEDS ORDERED: predniSONE 20 MG TABLET PO SCH (08:00)
[2024-06-10] MEDS ORDERED: NITROFURANTOIN MACRO 100 MG CAPSULE PO SCH (09:00)
== END 2024-06-09 15:17 | disposition home or self-care (01) | DRG 189 ==
LOC: ED 01:33 → ICU 05:17 → MS2 06-09 09:17
PROVIDERS: ADMIT Internal Medicine; ATTEND Internal Medicine
DX: B34.2 Coronavirus infection, unspecified; Z79.84 Long term (current) use of oral hypoglycemic drugs; N39.0 Urinary tract infection, site not specified; F41.1 Generalized anxiety disorder; F17.210 Nicotine dependence, cigarettes, uncomplicated; J96.21 Acute and chronic respiratory failure with hypoxia; J44.1 Chronic obstructive pulmonary disease with (acute) exacerbation; N17.9 Acute kidney failure, unspecified; R41.82 Altered mental status, unspecified; Z99.3 Dependence on wheelchair; Z99.81 Dependence on supplemental oxygen; E11.9 Type 2 diabetes mellitus without complications; F31.9 Bipolar disorder, unspecified; E87.5 Hyperkalemia; E87.1 Hypo-osmolality and hyponatremia; I10 Essential (primary) hypertension

== ENCOUNTER 2024-12-10 14:55 | Observation (INO) ==
--- NOTE | 2024-12-10 15:03 | ED Physician Documentation ---
History of Present Illness Stated complaint Stated Complaint: AMS Chief complaint Chief Complaint: Neuro History obtained from History obtained from: Patient and EMS Additonal information Additional information: 54-year-old woman with history of diabetes, illicit drug use, wheelchair dependence, PTSD, chronic hypoxemia on 2 L of oxygen has had a rough month. She developed an ulcer on the ankle and was started on antibiotics. Grew MSSA. Subsequently fell a couple of days later and fractured the left ankle. Saw my partner for confusion/encephalopathy, this was on the sixth now. Diagnosed with UTI and started on Keflex although her urine did not grow anything. Reportedly was on the smoking area at her assisted living facility, using marijuana and then was very sleepy and brought in for that. Patient has no complaints other than pain in the left ankle. [place] Coma Scale Assess Eye opening: To Voice Verbal response: Oriented Motor response: Obeys Commands Total score: 14 Meds/Allgy Home Medications Ambulatory Orders Medication Instructions Recorded Confirmed budesonide-formoterol HFA 80 1 inh inhalation BID #10. 2 grams 02/04/24 12/09/24 mcg-4.5 mcg/actuation aerosol inhaler (Breyna) ibuprofen 600 mg tablet (IBU) 600 mg PO Q6H PRN pain 0 04/12/24 12/09/24 quetiapine 300 mg tablet 300 mg PO HS 04/12/24 trazodone 300 mg tablet 300 mg PO HS 04/12/24 albuterol sulfate 90 mcg/actuation 1 - 2 puff inhalati on Q4HR PRN 05/06/24 12/09/24 aerosol inhaler (Ventolin HFA) Shortness Of Air/Wheezi ng #1 ea diclofenac sodium 75 mg 75 mg PO BID PRN pain #60 ta bs 07/28/24 12/09/24 tablet,delayed release divalproex 250 mg tablet,delayed 250 mg PO BID #180 ta bs 08/30/24 12/09/24 release citalopram 20 mg tablet 20 mg PO DAILY #30 tabs 08/3012/09/24 pregabalin 150 mg capsule (Lyrica) 150 mg PO BID #70 c aps 11/30/24 12/09/24 sulfamethoxazole 800 1 tab PO BID #14 tabs 12/09/24 mg-trimethoprim 160 mg tablet (Bactrim DS) acetaminophen 500 mg tablet 500 mg PO QID PRN fever or pain 12/04/24 12/09/24 (Tylenol Extra Strength) cephalexin 500 mg capsule 500 mg PO Q8H #20 caps 12/0412/09/24 oxycodone-acetaminophen 5 mg-325 See Rx Instructions P O .COMPLEX 12/09/24 12/09/24 mg tablet (Percocet) PRN pain #20 tabs tizanidine 4 mg capsule 4 mg PO Q8H PRN muscle spast icity 12/09/24 12/09/24 #60 caps Allergies Allergies Allergy/AdvReac Type Severity Reaction Status Date / Time No Known Drug Allergies Allergy Verified 12/09/24 13:36 PFSH Active Problems All Active Problems (Updated 12/10/24 @ 17:46 by Jose Carlos Pablo MD) Polypharmacy (Acute) Encephalopathy acute (Acute) Chronic respiratory failure (Acute) Urinary tract infection (Acute) Fracture of distal end of fibula (Acute) Cellulitis of left leg (Acute) Humeral fracture (Acute) Concussion injury of brain (Acute) Diabetes mellitus with hyperglycemia (Acute 11/20/06) Displaced oblique fracture of shaft of humerus, left arm, initial encounter for closed fracture (Acute 05/25/20) Migraine with aura (Acute 10/22/06) Psoriasis (Acute 11/20/06) Pyelonephritis, acute (Acute 11/20/06) Anemia, iron deficiency (Acute 11/26/06) Right knee buckling (Acute) Septic arthritis (Acute) Infected prosthetic hip (Acute) Osteomyelitis (Acute) Postoperative hypovolemic shock (Acute) Left shoulder strain (Acute) Hypothermia (Acute) Anxiety and depression (Acute) Femur fracture, left (Acute) Illicit drug use (Acute) Accidental fall from wheelchair (Acute) Reactive depression (situational) (Acute) Closed comminuted supracondylar fracture of femur (Acute) Asthma, moderate persistent (Acute 10/22/06) Essential (primary) hypertension (Acute 07/13/07) Bipolar 2 disorder (Acute) Acute exacerbation of extrinsic asthma (Acute) Hypoxemia (Acute) DM2 (diabetes mellitus, type 2) (Acute) Wheelchair dependent (Acute) Generalized anxiety disorder (Acute) Chronic pain (Acute) Hyperkalemia (Acute) Sepsis (Acute) PTSD (post-traumatic stress disorder) (Acute) Metatarsal fracture (Acute) Acute hypoxic respiratory failure (Acute) Surgical History Surgical History Hx of inguinal hernia repair right Hx of cholecystectomy Hx of appendectomy Hx of lithotripsy 2008 History of left hip replacement revision due to osteomyelitis, [place], 2016 Hx of bilateral hip replacements Family History Family History Mother Diabetes Heart failure Father Diabetes Heart failure Social History Social History (Updated 12/09/24 @ 13:39 by Mic Howard) Smoking Status: Current every day smoker Number of Years Smoked: 30 How many cigarettes a day do you smoke? (20 cigarettes=1 Pk): 3 Second hand tobacco smoke exposure: Yes Do you dip or chew tobacco?: No Do you vape?: No Patient requests smoking cessation consult: No Initiate information on smoking cessation: No Living arrangement: Assisted living Marital Status: Single Living Condition: Alone Support Person: Yes Level: Assisted Physical - Functional Details: [employer] for transfers. Do you feel safe in your home environment?: Yes History of physical, verbal, emotional, or financial abuse?: No ETOH Use: None Substance Use: cannabis (any form) POLST Patient has POLST: No Exam Exam Vital Signs: Vital Signs x48h Temp Pulse Resp BP Pulse Ox O2 Flow Rate 12/10/24 16:56 79 19 121/68 94 4 12/10/24 15:28 36.1 C L 82 22 129/83 93 4 Constitutional normal general appearance She is quite sleepy. She will wake up and answer questions cogently but then drifts off after talking for a couple sentences. Eyes PERRL Cardiovascular normal heart rate noted, regular rhythm noted and no murmur Gastrointestinal abdomen normal to inspection, abdomen soft to palpation and nontender to palpa tion Neurology GCS calculation - Eye opening: To Voice Verbal response: Oriented Motor response: Obeys Commands [place] Coma Scale total score: 14 Results Vitals Vitals: Vital Signs - 24 hr 12/10/24 15:28 12/10/24 16:56 Temperature 36.1 C L Temperature Source Temporal Artery Scan Pulse Rate 82 79 Respiratory Rate 22 19 Blood Pressure 129/83 121/68 O2 Saturation 93 94 O2 Source Nasal cannula Nasal cannula If not protocol: Oxygen Flow, liters/minute 4 4 Pain Intensity 0 0 Oxygen O2 Source [With Activity] Room air O2 Source [Without Activity] Room air O2 Source Nasal cannula EKG (time done) 1534: EKG releavant findings:: EKG personally interpreted by author of this note. Relevant findings are: Normal sinus rhythm with rate of 82, low voltage in the precordial leads. No ST elevation or depression. No prolonged QT. Labs Labs: Laboratory Tests 12/10/24 12/10/24 12/10/24 15:28 17:09 17:09 WBC 10.8 RBC 3.52 L Hgb 10.5 L Hct 35.4 L MCV 100.6 H MCH 29.8 MCHC 29.7 L RDW 15.1 H Plt Count 187 MPV 9.4 Neut # (Auto) 7.0 H Lymph # (Auto) 2.1 [place] # (Auto) 1.1 H Eos # (Auto) 0.3 Baso # (Auto) 0.1 Absolute Nucleated RBC 0.00 Nucleated RBC % 0.0 Sodium 136 Potassium 4.9 H Chloride 97 L Carbon Dioxide 36 H Anion Gap 3.0 L BUN 32 H Creatinine 1.6 H Estimated GFR (MDRD) 33 L Glucose 119 H Calcium 9.6 Magnesium 2.0 Total Bilirubin 0.2 AST 14 ALT 8 L Alkaline Phosphatase 58 Total Creatine Kinase 90 Total Protein 7.3 Albumin 3.7 Globulin 3.6 Albumin/Globulin Ratio 1.0 Lipase 17 TSH 6.35 H Urine Color YELLOW Urine Clarity CLEAR Urine pH 6.0 Ur Specific [place] 1.020 Urine Protein TRACE Urine Glucose (UA) NEGATIVE Urine Ketones NEGATIVE Urine Occult Blood TRACE Urine Nitrite NEGATIVE Urine Bilirubin NEGATIVE Urine Urobilinogen 0.2 (NORMAL) Ur Leukocyte Esterase TRACE H Urine RBC 0-5 Urine WBC 0-3 Ur Epithelial Cells FEW Transitional RARE Renal Tubular Ur Squamous Epith Cells FEW Squamous Urine Bacteria Rare Ur Microscopic Review INDICATED Urine Culture Comments INDICATED Last Dose Date Not Reportable Last Dose Time Not Reportable Salicylates < 1.5 Urine Opiates Screen NEGATIVE Ur Buprenorphine Scrn NEGATIVE Ur Oxycodone Screen POSITIVE H Urine Methadone Screen NEGATIVE Urine Fentanyl Screen Negative Acetaminophen 3.6 Ur Barbiturates Screen NEGATIVE Valproic Acid 42.5 Ur Tricyclics Screen POSITIVE H Ur Phencyclidine Scrn NEGATIVE Ur Amphetamine Screen NEGATIVE U Methamphetamines Scrn NEGATIVE U Benzodiazepines Scrn POSITIVE H Urine Cocaine Screen NEGATIVE U Cannabinoids Screen POSITIVE H Ur Drug Screen Comment CUTOFF CONC BELOW: Ethyl Alcohol < 10.0 PD Medical Decision Making ED course ED course: 54-year-old woman presents from a nursing facility for encephalopathy. She admits to cannabis but no harder drugs. She also is probably a victim of polypharmacy, she is on numerous medications that could cause sedation including Depakote, pregabalin, quetiapine, tizanidine, trazodone, and oxycodone. She has a nonfocal neuroexam. Workup in the emergency department demonstrates unremarkable CBC save mild chronic anemia, she does have GARTH on CMP, her creatinine was 1.3 about a week ago. Drug testing positive for oxycodone, tricyclic's, benzodiazepines, and cannabis. Her Depakote level was slightly subtherapeutic. She was observed for several hours without improvement in her mental status. She was hydrated with normal saline. Spoke with Dr. Matthews for observation at 5:44 PM. I had neglected to order a venous blood gas and this is added on. Discharge Plan Discharge Patient Disposition: ED Place in Observation Condition: Serious Clinical Impression: Chronic respiratory failure, Encephalopathy acute, Polypharmacy Prescriptions: No Action budesonide-formoterol [Breyna] 80-4.5 mcg/actuation HFA aerosol inhaler 1 inh inhalation BID Qty: 10.2 3RF divalproex 250 mg tablet,delayed release (DR/EC) 250 mg PO BID Qty: 180 0RF pregabalin [Lyrica] 150 mg capsule 150 mg PO BID Qty: 70 0RF ibuprofen [IBU] 600 mg tablet 600 mg PO Q6H PRN (Reason: pain) quetiapine 300 mg tablet 300 mg PO HS trazodone 300 mg tablet 300 mg PO HS citalopram 20 mg tablet 20 mg PO DAILY Qty: 30 2RF sulfamethoxazole-trimethoprim [Bactrim DS] 800-160 mg tablet 1 tab PO BID Qty: 14 0RF acetaminophen [Tylenol Extra Strength] 500 mg tablet 500 mg PO QID PRN (Reason: fever or pain) cephalexin 500 mg capsule 500 mg PO Q8H Qty: 20 0RF diclofenac sodium 75 mg tablet,delayed release (DR/EC) 75 mg PO BID PRN (Reason: pain) Qty: 60 3RF Rx Instructions: for pain tizanidine 4 mg capsule 4 mg PO Q8H PRN (Reason: muscle spasticity) Qty: 60 5RF Rx Instructions: for muscle pain and spasm oxycodone-acetaminophen [Percocet] 5-325 mg tablet See Rx Instructions PO .COMPLEX PRN (Reason: pain) Qty: 20 0RF Rx Instructions: take 1/2 - 2 by mouth every 6 hours as needed for severe pain albuterol sulfate [Ventolin HFA] 90 mcg/actuation HFA aerosol inhaler 1 - 2 puff inhalation Q4HR PRN (Reason: Shortness Of Air/Wheezing) Qty: 1 12RF Print Language: Divehi Stand Alone Forms: PCP List
[2024-12-10 15:34] LABS: HCT - HEMATOCRIT 35.4 % (37.0-47.0); HGB - HEMOGLOBIN 10.5 g/dL (12.0-16.0); MEAN PLATELET VOLUME 9.4 fL (7.9-10.8); NRBC ABSOLUTE COUNT (AUTO) 0.00 x10^3/uL; NUCLEATED RED BLOOD CELLS AUTO 0.0 /100WBC; PLT - PLATELET COUNT 187 10^3/uL (130-450); RED CELL DISTRIBUTION WIDTH 15.1 % (12.0-15.0)
--- OUTSIDE RECORDS SUMMARY | 2024-12-10 15:38 | EXTERNAL MEDICAL SUMMARY RPT | Continuity of Care Document ---
Author Organization [facility] Address [address] [place] [id number] Phone Problems date description facility 2024-09-17 15:45 Major depressive dis order, single episode, unspecified [facility] 2024-09-17 15:45 Strain of unspecifie d muscle, fascia and tendon at shoulder and upper arm level, right arm, initial encounter [facility] 2024-09-20 08:09 Major depressive dis order, single episode, unspecified [facility] 2024-09-20 08:09 Strain of unspecifie d muscle, fascia and tendon at shoulder and upper arm level, right arm, initial encounter [facility] 2024-09-20 10:46 Major depressive dis order, single episode, unspecified [facility] 2024-09-20 10:46 Pain in right shoulder [facility] 2024-09-20 10:46 Strain of unspecifie d muscle, fascia and tendon at shoulder and upper arm level, right arm, initial encounter [facility] 2024-10-08 11:08 Pain in right shoulder [facility] 2024-11-04 11:38 Sepsis, unspecified organism [facility] 2024-11-04 11:38 Type 2 diabetes shelia itus with other specified complication [facility] 2024-11-04 11:38 Type 2 diabetes mellitus withou t complications [facility] 2024-11-04 11:38 Bipolar II disorder [facility] 2024-11-04 11:38 Major depressive dis order, single episode, unspecified [facility] 2024-11-04 11:38 Generalized anxiety disorder [facility] 2024-11-04 11:38 Encephalopathy, unspecified [facility] 2024-11-04 11:38 Essential (primary) hypertensio n [facility] 2024-11-04 11:38 Acute upper respiratory infecti on, unspecified [facility] 2024-11-04 11:38 Chronic obstructive pulmonary disease with (acute) exacerbation [facility] 2024-11-04 11:38 Mild intermittent asthma with ( acute) exacerbation [facility] 2024-11-04 11:38 Moderate persistent asthma with (acute) exacerbation [facility] 2024-11-04 11:38 Unspecified asthma with (acute) exacerbation [facility] 2024-11-04 11:38 Acute respiratory failure with hypoxia [facility] 2024-11-04 11:38 Acute and chronic respiratory f ailure with hypoxia [facility] 2024-11-04 11:38 Pain in right shoulder [facility] 2024-11-04 11:38 Acute kidney failure, unspecifi ed [facility] 2024-11-04 11:38 Urinary tract infection, site n ot specified [facility] 2024-11-04 11:38 Cough, unspecified [facility] 2024-11-04 11:38 Dyspnea, unspecified [facility] 2024-11-04 11:38 Shortness of breath [facility] 2024-11-04 11:38 Hypoxemia [facility] 2024-11-04 11:38 Fever, unspecified [employer] [facility] 2024-11-04 11:38 Other fatigue [facility] 2024-11-04 11:38 Strain of unspecifie d muscle, fascia and tendon at shoulder and upper arm level, right arm, initial encounter [facility] 2024-11-04 11:38 Unspecified injury o f right shoulder and upper arm, initial encounter [facility] 2024-11-04 11:38 Fracture of unspecif ied metatarsal bone(s), unspecified foot, initial encounter for closed fracture [facility] 2024-11-04 11:38 Unspecified injury of left foot , initial encounter [facility] 2024-11-04 11:38 Poisoning by fentany l or fentanyl analogs, accidental (unintentional), initial encounter [facility] 2024-11-04 11:38 Encounter for issue of repeat p rescription [facility] 2024-11-04 11:38 Dependence on wheelchair [facility] 2024-11-04 11:40 Sepsis, unspecified organism [facility] 2024-11-04 11:40 Type 2 diabetes shelia itus with other specified complication [facility] 2024-11-04 11:40 Type 2 diabetes mellitus withou t complications [facility] 2024-11-04 11:40 Hyperkalemia [facility] 2024-11-04 11:40 Bipolar II disorder [facility] 2024-11-04 11:40 Major depressive dis order, single episode, unspecified [facility] 2024-11-04 11:40 Generalized anxiety disorder [facility] 2024-11-04 11:40 Other chronic pain [facility] 2024-11-04 11:40 Encephalopathy, unspecified [facility] 2024-11-04 11:40 Essential (primary) hypertensio n [facility] 2024-11-04 11:40 Acute upper respiratory infecti on, unspecified [facility] 2024-11-04 11:40 Chronic obstructive pulmonary disease with (acute) exacerbation [facility] 2024-11-04 11:40 Mild intermittent asthma with ( acute) exacerbation [facility] 2024-11-04 11:40 Moderate persistent asthma with (acute) exacerbation [facility] 2024-11-04 11:40 Unspecified asthma with (acute) exacerbation [facility] 2024-11-04 11:40 Acute respiratory failure with hypoxia [facility] 2024-11-04 11:40 Acute and chronic respiratory f ailure with hypoxia [facility] 2024-11-04 11:40 Pain in right shoulder [facility] 2024-11-04 11:40 Acute kidney failure, unspecifi ed [facility] 2024-11-04 11:40 Urinary tract infection, site n ot specified [facility] 2024-11-04 11:40 Cough, unspecified [facility] 2024-11-04 11:40 Dyspnea, unspecified [facility] 2024-11-04 11:40 Shortness of breath [facility] 2024-11-04 11:40 Hypoxemia [facility] 2024-11-04 11:40 Fever, unspecified [facility] 2024-11-04 11:40 Other fatigue [facility] 2024-11-04 11:40 Strain of unspecifie d muscle, fascia and tendon at shoulder and upper arm level, right arm, initial encounter [facility] 2024-11-04 11:40 Unspecified injury o f right shoulder and upper arm, initial encounter [facility] 2024-11-04 11:40 Fracture of unspecif ied metatarsal bone(s), unspecified foot, initial encounter for closed fracture [facility] 2024-11-04 11:40 Unspecified injury of left foot , initial encounter [facility] 2024-11-04 11:40 Poisoning by fentany l or fentanyl analogs, accidental (unintentional), initial encounter [facility] 2024-11-04 11:40 Encounter for issue of repeat p rescription [facility] 2024-11-04 11:40 Dependence on wheelchair [facility] 2024-11-04 11:45 Sepsis, unspecified [facility] 2024-11-04 11:45 Type 2 diabetes shelia itus with other specified complication [facility] 2024-11-04 11:45 Type 2 diabetes mellitus withou t complications [facility] 2024-11-04 11:45 Bipolar II disorder [facility] 2024-11-04 11:45 Major depressive dis order, single episode, unspecified [facility] 2024-11-04 11:45 Generalized anxiety [facility] 2024-11-04 11:45 Encephalopathy, unspecified [facility] 2024-11-04 11:45 Essential (primary) hypertensio n [facility] 2024-11-04 11:45 Acute upper respiratory infecti on, unspecified [facility] 2024-11-04 11:45 Chronic obstructive pulmonary disease with (acute) exacerbation [facility] 2024-11-04 11:45 Mild intermittent asthma with ( acute) exacerbation [facility] 2024-11-04 11:45 Moderate persistent asthma with (acute) exacerbation [facility] 2024-11-04 11:45 Unspecified asthma with (acute) [facility] 11:45 Acute respiratory failure with hypoxia [facility] 2024-11-04 11:45 Acute and chronic respiratory f ailure with hypoxia [facility] 2024-11-04 11:45 Pain in right shoulder [facility] 2024-11-04 11:45 Acute kidney failure, unspecifi ed [facility] 2024-11-04 11:45 Urinary tract infection, site n ot specified [facility] 2024-11-04 11:45 Cough, unspecified [facility] 2024-11-04 11:45 Dyspnea, unspecified [facility] 2024-11-04 11:45 Shortness of breath [facility] 2024-11-04 11:45 Hypoxemia [facility] 2024-11-04 11:45 Fever, unspecified [facility] 2024-11-04 11:45 Other fatigue [facility] 2024-11-04 11:45 Strain of unspecifie d muscle, fascia and tendon at shoulder and upper arm level, right arm, initial encounter [facility] 2024-11-04 11:45 Unspecified injury o f right shoulder and upper arm, initial encounter [facility] 2024-11-04 11:45 Fracture of unspecif ied metatarsal bone(s), unspecified foot, initial encounter for closed fracture [facility] 2024-11-04 11:45 Unspecified injury of left foot , initial encounter [facility] 2024-11-04 11:45 Poisoning by fentany l or fentanyl analogs, accidental (unintentional), initial encounter [facility] 2024-11-04 11:45 Encounter for issue of repeat p rescription [facility] 2024-11-04 11:45 Dependence on wheelchair [facility] 2024-11-04 11:48 Sepsis, unspecified organism [facility] 2024-11-04 11:48 Type 2 diabetes shelia itus with other specified complication [facility] 2024-11-04 11:48 Type 2 diabetes mellitus withou t complications [facility] 2024-11-04 11:48 Bipolar II disorder [facility] 2024-11-04 11:48 Major depressive dis order, single episode, unspecified [facility] 2024-11-04 11:48 Generalized anxiety disorder [facility] 2024-11-04 11:48 Encephalopathy, unspecified [facility] 2024-11-04 11:48 Essential (primary) hypertensio n [facility] 2024-11-04 11:48 Acute upper respiratory infecti on, unspecified [facility] 2024-11-04 11:48 Chronic obstructive pulmonary disease with (acute) exacerbation [facility] 2024-11-04 11:48 Mild intermittent asthma with ( acute) exacerbation [facility] 2024-11-04 11:48 Moderate persistent asthma with (acute) exacerbation [facility] 2024-11-04 11:48 Unspecified asthma with (acute) exacerbation [facility] 2024-11-04 11:48 Acute respiratory failure with hypoxia [facility] 2024-11-04 11:48 Acute and chronic respiratory f ailure with hypoxia [facility] 2024-11-04 11:48 Pain in right shoulder [facility] 2024-11-04 11:48 Acute kidney failure, unspecifi ed [facility] 2024-11-04 11:48 Urinary tract infection, site n ot specified [facility] 2024-11-04 11:48 Cough, unspecified [facility] 2024-11-04 11:48 Dyspnea, unspecified [facility] 2024-11-04 11:48 Shortness of breath [facility] 2024-11-04 11:48 Hypoxemia [facility] 2024-11-04 11:48 Fever, unspecified [facility] 2024-11-04 11:48 Other fatigue [facility] 2024-11-04 11:48 Strain of unspecifie d muscle, fascia and tendon at shoulder and upper arm level, right arm, initial encounter [facility] 2024-11-04 11:48 Unspecified injury o f right shoulder and upper arm, initial encounter [facility] 2024-11-04 11:48 Fracture of unspecif ied metatarsal bone(s), unspecified foot, initial encounter for closed fracture [facility] 2024-11-04 11:48 Unspecified injury of left foot , initial encounter [facility] 2024-11-04 11:48 Poisoning by fentany l or fentanyl analogs, accidental (unintentional), initial encounter [facility] 2024-11-04 11:48 Encounter for issue of repeat p rescription [facility] 2024-11-04 11:48 Dependence on wheelchair [facility] 2024-11-04 13:06 Sepsis, unspecified organism [facility] 2024-11-04 13:06 Type 2 diabetes shelia itus with other specified complication [facility] 2024-11-04 13:06 Type 2 diabetes mellitus withou t complications [facility] 2024-11-04 13:06 Bipolar II disorder [facility] 2024-11-04 13:06 Major depressive dis order, single episode, unspecified [facility] 2024-11-04 13:06 Generalized anxiety disorder [facility] 2024-11-04 13:06 Encephalopathy, unspecified [facility] 2024-11-04 13:06 Essential (primary) hypertensio n [facility] 2024-11-04 13:06 Acute upper respiratory infecti on, unspecified [facility] 2024-11-04 13:06 Chronic obstructive pulmonary disease with (acute) exacerbation [facility] 2024-11-04 13:06 Mild intermittent asthma with ( acute) exacerbation [facility] 2024-11-04 13:06 Moderate persistent asthma with (acute) exacerbation [facility] 2024-11-04 13:06 Unspecified asthma with (acute) exacerbation [facility] 2024-11-04 13:06 Acute respiratory failure with hypoxia [facility] 2024-11-04 13:06 Acute and chronic respiratory f ailure with hypoxia [facility] 2024-11-04 13:06 Pain in right shoulder [facility] 2024-11-04 13:06 Acute kidney failure, unspecifi ed [facility] 2024-11-04 13:06 Urinary tract infection, site n ot specified [facility] 2024-11-04 13:06 Cough, unspecified [facility] 2024-11-04 13:06 Dyspnea, unspecified [facility] 2024-11-04 13:06 Shortness of breath [facility] 2024-11-04 13:06 Hypoxemia [facility] 2024-11-04 13:06 Fever, unspecified [facility] 2024-11-04 13:06 Other fatigue [facility] 2024-11-04 13:06 Strain of unspecifie d muscle, fascia and tendon at shoulder and upper arm level, right arm, initial encounter [facility] 2024-11-04 13:06 Unspecified injury o f right shoulder and upper arm, initial encounter [facility] 2024-11-04 13:06 Fracture of unspecif ied metatarsal bone(s), unspecified foot, initial encounter for closed fracture [facility] 2024-11-04 13:06 Unspecified injury of left foot , initial encounter [facility] 2024-11-04 13:06 Poisoning by fentany l or fentanyl analogs, accidental (unintentional), initial encounter [facility] 2024-11-04 13:06 Encounter for issue of repeat p rescription [facility] 2024-11-04 13:06 Dependence on wheelchair [facility] 2024-11-04 13:11 Sepsis, unspecified [facility] 2024-11-04 13:11 Type 2 diabetes shelia itus with other specified complication [facility] 2024-11-04 13:11 Type 2 diabetes mellitus withou t complications [facility] 2024-11-04 13:11 Bipolar II disorder [facility] 2024-11-04 13:11 Major depressive dis order, single episode, unspecified [facility] 2024-11-04 13:11 Generalized anxiety disorder [facility] 2024-11-04 13:11 Encephalopathy, unspecified [facility] 2024-11-04 13:11 Essential (primary) hypertensio n [facility] 2024-11-04 13:11 Acute upper respiratory infecti on, unspecified [facility] 2024-11-04 13:11 Chronic obstructive pulmonary disease with (acute) exacerbation [facility] 2024-11-04 13:11 Mild intermittent asthma with ( acute) exacerbation [facility] 2024-11-04 13:11 Moderate persistent asthma with (acute) exacerbation [facility] 2024-11-04 13:11 Unspecified asthma with (acute) exacerbation [facility] 2024-11-04 13:11 Acute respiratory failure with hypoxia [facility] 2024-11-04 13:11 Acute and chronic respiratory f ailure with hypoxia [facility] 2024-11-04 13:11 Pain in right shoulder [facility] 2024-11-04 13:11 Acute kidney failure, unspecifi ed [facility] 2024-11-04 13:11 Urinary tract infection, site n ot specified [facility] 2024-11-04 13:11 Cough, unspecified [facility] 2024-11-04 13:11 Dyspnea, unspecified [facility] 2024-11-04 13:11 Shortness of breath [facility] 2024-11-04 13:11 Hypoxemia [facility] 2024-11-04 13:11 Fever, unspecified [facility] 2024-11-04 13:11 Other fatigue [facility] 2024-11-04 13:11 Strain of unspecifie d muscle, fascia and tendon at shoulder and upper arm level, right arm, initial encounter [facility] 2024-11-04 13:11 Unspecified injury o f right shoulder and upper arm, initial encounter [facility] 2024-11-04 13:11 Fracture of unspecif ied metatarsal bone(s), unspecified foot, initial encounter for closed fracture [facility] 2024-11-04 13:11 Unspecified injury of left foot , initial encounter [facility] 2024-11-04 13:11 Poisoning by fentany l or fentanyl analogs, accidental (unintentional), initial encounter [facility] 2024-11-04 13:11 Encounter for issue of repeat p rescription [facility] 2024-11-04 13:11 Dependence on wheelchair [facility] 2024-11-24 15:54 Strain of unspecifie d muscle, fascia and tendon at shoulder and upper arm level, right arm, initial encounter [facility] 2024-11-26 09:03 Strain of unspecifie d muscle, fascia and tendon at shoulder and upper arm level, right arm, initial encounter [facility] 2024-11-26 14:06 Procedure and treatm ent not carried out due to patient leaving prior to being seen by health care provider [facility] 2024-11-30 12:40 Procedure and treatm ent not carried out due to patient leaving prior to being seen by health care provider [facility] 2024-12-01 13:25 Strain of unspecifie d muscle, fascia and tendon at shoulder and upper arm level, right arm, initial encounter [facility] 2024-12-01 14:41 Cellulitis of left lower limb [facility] 2024-12-01 15:20 Cellulitis of left lower limb [facility] 2024-12-02 11:55 Toxic effect of unsp ecified spider venom, accidental (unintentional), initial encounter [facility] 2024-12-03 11:37 Cellulitis of left lower limb [facility] 2024-12-03 11:37 Toxic effect of unsp ecified spider venom, accidental (unintentional), initial encounter [facility] 2024-12-04 13:14 Acute cystitis without hematuri a [facility] Results/Labs test date facility value unit notes Result panel 1 CLINDAMYCIN 2024-12-01 14:21 [facility] (missing) (missing) (missing) CUL,WOUND (AEROBIC) 2024-12-01 14:21 [facility] (missing) (missing) (missing) PENICILLIN-G 2024-12-01 14:21 [facility] >=0.5 (missing) (missing) ERYTHROMYCIN 2024-12-01 14:21 [facility] >=8 (missing) (missing) TIGECYCLINE 2024-12-01 14:21 [facility] <=0.12 (missing) (missing) MOXIFLOXACIN 2024-12-01 14:21 [facility] <=0.25 (missing) (missing) GENTAMICIN 2024-12-01 14:21 [facility] <=0.5 (missing) (missing) RIFAMPIN 2024-12-01 14:21 [facility] <=0.5 (missing) (missing) VANCOMYCIN 2024-12-01 14:21 [facility] <=0.5 (missing) (missing) CIPROFLOXACIN 2024-12-01 14:21 [facility] <=0.5 (missing) 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 A positive ICR test is indicative of inducible resistance to macrolides, lincosamides, and type B streptogramin . This isolate is presumed to be resistant to clindamycin; however, clindamycin may still be effective in some patients. TETRACYCLINE 2024-12-01 14:21 [facility] <=1 (missing) (missing) TRIMETHOPRIM/SUL FAMETHOXAZOLE 2024-12-01 14:21 [facility] <=10 (missing) (missing) LEVOFLOXACIN 2024-12-01 14:21 [facility] 0.25 (missing) (missing) OXACILLIN OSITO 2024-12-01 14:21 [facility] 0.5 (missing) (missing) QUINUPRISTIN/LADARIUS FOPRISTIN 2024-12-01 14:[facility] ([facility] (missing) LINEZOLID 2024-12-01 14:21 [employer] 2 (missing) (missing) CUL,WOUND (AEROBIC) 2024-12-01 14:21 [facility] 22+ GROWTH (missing) (missing) CUL,WOUND (AEROBIC) 2024-12-01 14:21 [facility] CC.6COLONY COUNT (missing) (missing) CUL,WOUND (AEROBIC) 2024-12-01 14:21 [facility] FEW WBC'S (missing) (missing) CUL,WOUND (AEROBIC) 2024-12-01 14:21 [facility] GRAM STAIN: (missing) (missing) CUL,WOUND (AEROBIC) 2024-12-01 14:21 [facility] IDMICID/OSITO COM* (missing) (missing) CUL,WOUND (AEROBIC) 2024-12-01 14:21 [facility] RARE GRAM POSITIVE COCCI (missing) (missing) CUL,WOUND (AEROBIC) 2024-12-01 14:21 [facility] SENSISENSITIVITIES TO FOLLOW (missing) (missing) O:STAAUR 2024-12-01 14:21 [facility] STAAURSTAPHYLOCOCCUS AUREUSSTAPHYLOCOCCUS AUREUS (missing) (missing) Result panel 2 LIPASE 2024-12-04 09:22 [facility] < 10 u/l As of September 2022 testing method has changed, this may include reference ranges. NUCLEATED RED BLOOD CELLS AUTO 2024-12-04 09:22 [facility] 0.0 /100wbc (missing) BASOPHILS # (AUTO) 2024-12-04 09:22 [facility] 0.0 10 3/ul (missing) NRBC ABSOLUTE COUNT (AUTO) 2024-12-04 09:22 [facility] 0.00 x10 3/ul (missing) EOSINOPHILS # (AUTO) 2024-12-04 09:22 [facility] 0.1 10 3/ul (missing) BILIRUBIN,TOTAL 2024-12-04 09:22 [facility] 0.5 mg /dl As of September 2022 testing method has changed, this may include reference ranges. ALBUMIN/GLOBULIN RATIO 2024-12-04 09:22 [facility] 1.0 (missing) (missing) MONOCYTES # (AUTO) 2024-12-04 09:22 [facility] 1.2 10 3/ul (missing) CREATININE 2024-12-04 09:22 [facility] 1.3 mg/dl As of September 2022 testing method has changed, this may include reference ranges. LYMPHOCYTES # (AUTO) 2024-12-04 09:22 [facility] 1.5 10 3/ul (missing) HGB - HEMOGLOBIN 2024-12-04 09:22 [facility] 10.8 g /dl (missing) PLT - PLATELET COUNT 2024-12-04 09:22 [facility] 118 10 3/ul (missing) NEUTROPHILS # (AUTO) 2024-12-04 09:22 [facility] 12.0 10 3/ul (missing) ALT ALANINE AMINOTRANSFERASE 2024-12-04 09:22 [facility] 13 iu/l As of September 2022 testing method has changed, this may include reference ranges. SODIUM 2024-12-04 09:22 [facility] [employer] [employer] 138 mmol/l (missing) RED CELL DISTRIBUTION WIDTH 2024-12-04 09:22 [facility] 14.9 % (missing) WHITE BLOOD COUNT 2024-12-04 09:22 [facility] 15.1 x10 3/ul (missing) AST ASPARTATE AMINOTRANSFERASE 2024-12-04 09:22 [facility] 19 iu/l As of September 2022 testing method has changed, this may include reference ranges. BUN - BLOOD UREA NITROGEN 2024-12-04 09:22 [facility] 22 mg/dl As of Sep testing method has changed, this may include reference ranges. ANION GAP 2024-12-04 09:22 [facility] 3.0 (missing ) (missing) ALBUMIN 2024-12-04 09:22 [facility] 3.2 g/dl As of September 2022 testing method has changed, this may include reference ranges. GLOBULIN 2024-12-04 09:22 [facility] 3.3 g/dl (missing) RED BLOOD COUNT 2024-12-04 09: [facility] 3.60 10 6/ul (missing) MEAN CORPUSCULAR HEMOGLOBIN 2024-12-04 09:22 [facility] 30.0 pg (missing) MEAN CORPUSCULAR HGB CONC 2024-12-04 09:22 [facility] 30.7 g/dl (missing) HCT - HEMATOCRIT 2024-12-04 09:22 [facility] 35.2 % (missing) CARBON DIOXIDE - CO2 2024-12-04: [facility] 36 mmol/l As of September 2022 testing method has changed, this may include reference ranges. POTASSIUM 2024-12-04:22 [facility] 4.4 mmol/l As of September 2022 testing method has changed, this may include reference ranges. GFR - MDRD 2024-12-04 09:22 [facility] 42 (zenon salcedo) Social History date description facility
[2024-12-10 15:51] LABS: ALT ALANINE AMINOTRANSFERASE 8 IU/L (10-60); AST ASPARTATE AMINOTRANSFERASE 14 IU/L (10-42); BUN - BLOOD UREA NITROGEN 32 mg/dL (6-20); CARBON DIOXIDE - CO2 36 mmol/L (21-32); CK- CREATINE KINASE 90 IU/L (30-223); CREATININE 1.6 mg/dL (0.6-1.3); ETOH - ETHANOL < 10.0 mg/dL; GFR - MDRD 33 (>89)
[2024-12-10 16:09] LABS: VALPROIC ACID (DEPAKOTE) 42.5 ug/mL
[2024-12-10] MEDS: SODIUM CHLORIDE 0.9% 1,000 ML IV STA (16:15)
[2024-12-10 17:33] LABS: GLUCOSE, URINE (UA) NEGATIVE (NEGATIVE); KETONES,URINE (UA) NEGATIVE (NEGATIVE); OCCULT BLOOD,URINE TRACE (NEGATIVE)
[2024-12-10 17:34] LABS: AMPHETAMINE SCREEN,URINE NEGATIVE (NEGATIVE); COCAINE SCREEN URINE NEGATIVE (NEGATIVE); METHAMPHETAMINES SCREEN, URINE NEGATIVE (NEGATIVE); OPIATE SCREEN, URINE NEGATIVE (NEGATIVE); SQUAMOUS EPITHELIAL CELL,UR FEW Squamous (<= Few); THC CANNABINOID SCREEN, URINE POSITIVE (NEGATIVE)
[2024-12-10 17:35] LABS: BARBITURATE SCREEN,UR NEGATIVE (NEGATIVE); BENZODIAZEPINES SCREEN, URINE POSITIVE (NEGATIVE); BUPRENORPHINE SCREEN, URINE NEGATIVE (NEGATIVE); METHADONE SCREEN, URINE NEGATIVE (NEGATIVE)
--- NOTE | 2024-12-10 17:53 | HISTORY & PHYSICAL EXAMINATION ---
Chief Complaint Chief Complaint Chief Complaint: Altered mental status History of Present Illness Admitted From Admitted From:: [facility] History Obtained From Records Reviewed: EMR History obtained from: Patient Exam Limitations: Patient lethargic + sleepy History of Present Illness HPI Comment/Other: Patient is a 54-year-old female with a history of COPD normally on 2 L of oxygen who presents due to altered mentation. Per ER physician, she lives at [facility], and assisted living facility, and she was in the smoking area using marijuana. She was falling asleep midsentence, and was brought in for that. When patient is seen, she does awake and is able to tell me her name and where she is. However, she is falling asleep after every sentence. She denies any fevers or chills. She does state that she is very cold. She is not having any difficulty breathing. She tells me that normally she wears 2 L of oxygen, and she does not use CPAP at home. She is unable to quantify her marijuana use or her benzodiazepine use or if she had accidentally increased her home medications prior to coming in. Her other medical conditions include diabetes mellitus, PTSD, bipolar disorder, recent urinary tract infection and recent ankle fracture undergoing nonsurgical treatment with a splint in place. Medication list is provided by pending [facility] to [facility] and includes tizanidine, Seroquel, Lyrica, Depakote. Patient has no known drug allergies. Unclear tobacco use, alcohol, recreational drug history as patient is unable to provide this information due to lethargy. In the ER, she is vitally stablesaturating 94% on 2 L, respiratory rate of 19, heart rate of 79, afebrile, with a blood pressure of 121/68. Lab work was reviewedshe has no white count, hemoglobin is within normal limits. Her potassium is slightly elevated at 4.9. Her creatinine is also above baseline at 1.6. Normally she runs between 1-1.3. Her bicarb on her BMP is 36, and venous blood gas is still pending. Her UA is positive for trace leukocyte esterase, as well as rare bacteria. Prior to admission, she was receiving antibiotics for urinary tract infection. Records were reviewedharlan presented earlier this month on 12/03 after a fall in the bathroom. X-ray of ankle showed nondisplaced fracture of distal fibula of left foot. ER doctor discussed with orthopedic surgery, and he recommended a broad stirrup and splinting and follow-up outpatient. At this time, patient is admitted for altered mental status. Meds/Allgy Home Medications Ambulatory Orders Medication Instructions Recorded Confirmed budesonide-formoterol HFA 80 1 inh inhalation BID #10. 2 grams 02/04/24 12/10/24 mcg-4.5 mcg/actuation aerosol inhaler (Breyna) ibuprofen 600 mg tablet (IBU) 600 mg PO Q6H PRN pain 0 04/12/24 12/10/24 quetiapine 300 mg tablet 300 mg PO HS 04/12/24 trazodone 300 mg tablet 300 mg PO HS 04/12/24 albuterol sulfate 90 mcg/actuation 1 - 2 puff inhalati on Q4HR PRN 05/06/24 12/10/24 aerosol inhaler (Ventolin HFA) Shortness Of Air/Wheezi ng #1 ea divalproex 250 mg tablet,delayed 250 mg PO BID #180 ta bs 08/30/24 12/10/24 release citalopram 20 mg tablet 20 mg PO DAILY #30 tabs 08/3012/10/24 pregabalin 150 mg capsule (Lyrica) 150 mg PO BID #70 c aps 11/30/24 12/10/24 sulfamethoxazole 800 1 tab PO BID #14 tabs 12/10/24 mg-trimethoprim 160 mg tablet (Bactrim DS) acetaminophen 500 mg tablet 500 mg PO QID PRN fever or pain 12/04/24 12/10/24 (Tylenol Extra Strength) cephalexin 500 mg capsule 500 mg PO Q8H #20 caps 12/0412/10/24 tizanidine 4 mg capsule 4 mg PO Q8H PRN muscle spast icity 12/09/24 12/10/24 #60 caps oxycodone-acetaminophen 5 mg-325 1 - 2 tab PO Q6H PRN pain 12/10/24 12/10/24 mg tablet (Percocet) Allergies Allergies Allergy/AdvReac Type Severity Reaction Status Date / Time No Known Drug Allergies Allergy Verified 12/09/24 13:36 PFSH Active Problems All Active Problems (Updated 12/10/24 @ 18:21 by Jb Matthews MD) COPD (chronic obstructive pulmonary disease) (Chronic) Polypharmacy (Acute) Encephalopathy acute (Acute) Chronic respiratory failure (Acute) Urinary tract infection (Acute) Fracture of distal end of fibula (Acute) Cellulitis of left leg (Acute) Humeral fracture (Acute) Concussion injury of brain (Acute) Diabetes mellitus with hyperglycemia (Acute 11/20/06) Displaced oblique fracture of shaft of humerus, left arm, initial encounter for closed fracture (Acute 05/25/20) Migraine with aura (Acute 10/22/06) Psoriasis (Acute 11/20/06) Pyelonephritis, acute (Acute 11/20/06) Anemia, iron deficiency (Acute 11/26/06) Right knee buckling (Acute) Septic arthritis (Acute) Infected prosthetic hip (Acute) Osteomyelitis (Acute) Postoperative hypovolemic shock (Acute) Left shoulder strain (Acute) Hypothermia (Acute) Anxiety and depression (Acute) Femur fracture, left (Acute) Illicit drug use (Acute) Accidental fall from wheelchair (Acute) Reactive depression (situational) (Acute) Closed comminuted supracondylar fracture of femur (Acute) Asthma, moderate persistent (Acute 10/22/06) Essential (primary) hypertension (Acute 07/13/07) Bipolar 2 disorder (Acute) Acute exacerbation of extrinsic asthma (Acute) Hypoxemia (Acute) DM2 (diabetes mellitus, type 2) (Acute) Wheelchair dependent (Acute) Generalized anxiety disorder (Acute) Chronic pain (Acute) Hyperkalemia (Acute) Sepsis (Acute) PTSD (post-traumatic stress disorder) (Acute) Metatarsal fracture (Acute) Acute hypoxic respiratory failure (Acute) Surgical History Surgical History Hx of inguinal hernia repair right Hx of cholecystectomy Hx of appendectomy Hx of lithotripsy 2008 History of left hip replacement revision due to osteomyelitis, [place], 2016 Hx of bilateral hip replacements Family History Family History Mother Diabetes Heart failure Father Diabetes Heart failure Social History Social History Smoking Status: Current every day smoker Number of Years Smoked: 30 How many cigarettes a day do you smoke? (20 cigarettes=1 Pk): 3 Second hand tobacco smoke exposure: Yes Do you dip or chew tobacco?: No Do you vape?: No Patient requests smoking cessation consult: No Initiate information on smoking cessation: No Living arrangement: Assisted living Marital Status: Single Living Condition: Alone Support Person: Yes Level: Assisted Physical - Functional Details: [facility] for transfers. Do you feel safe in your home environment?: Yes History of physical, verbal, emotional, or financial abuse?: No ETOH Use: None Substance Use: cannabis (any form) POLST Patient has POLST: No Review of Systems Patient is lethargic and falls asleep between sentences. Unable to obtain meaningful and comprehensive ROS. She does deny any fevers, chills, shortness of breath. Status of ROS: unobtainable due to medical condition and unobtainable due to mental status Prior Level of Functionality: Ambulates via wheelchair. Lives at assisted living facility. Is able to stand and pivot. Exam Exam Vital Signs: Vital Signs x48h Temp Pulse Resp BP Pulse Ox O2 Flow Rate 12/10/24 16:56 79 19 121/68 94 4 12/10/24 15:28 97.0 F L 82 22 129/83 93 4 Constitutional normal general appearance, abnormal body habitus (obese) and level of alertness abnormal (lethargic) Patient is falling asleep midsentence, and awakens to physical stimuli. HENMT normocephalic, head/scalp atraumatic and hearing grossly normal bilaterally Eyes PERRL, EOMs intact bilaterally and conjunctivae normal Neck/C-Spine visual inspection normal, trachea midline and cervical spine nontender Chest inspection of chest normal Respiratory breath sounds equal bilaterally, normal respiratory effort and clear to auscultation bilaterally Minimal wheezing, good air movement noted Cardiovascular normal heart rate noted, regular rhythm noted, no gallop, no rub and no murmur Gastrointestinal abdomen normal to inspection, abdomen soft to palpation, nontender to palpation and normoactive bowel sounds Genitourinary no CVA tenderness Extremities Left lower extremity and splint, with Ari Band-Aid wrapped around. Small abrasion on anterior left calle with no purulence, no active drainage, good granulation tissue Neurology Patient unable to comply with full neurological exam. Is able to squeeze bilateral hands, and wiggles toes. Psychiatry Alert and oriented x 2, but does fall asleep midsentence Conclusion/Plan Problem List (1) Encephalopathy acute: Plan: Patient presents with lethargy, falling asleep frequently. Less likely infection: White count within normal limits. Patient was prescribed cephalexin on 12/04 for urinary tract infection, today was the last day of the treatment, not continued. Lung exam with no active wheezing. Cough within patient's normal limits with no increase sputum production. Venous blood gas ordered: CO2 slightly elevated at 51.8, pH is 7.4. Patient likely has higher CO2 levels due to chronic COPD, around baseline. Less likely CO2 narcosis. RUDS reviewedit is positive for tricyclics, oxycodone, benzodiazepines, cannabinoids. Altered mentation is likely due to polypharmacy, which has been worsened by acute kidney injury, and reduced clearance of such medications. Tonight will hold tizanidine, trazodone, Lyrica. Resume Depakote and Seroquel. Will introduce medications as necessary in the next 24 hours as patient's mentation improves. (2) GARTH (acute kidney injury): Plan: Likely prerenal due to the decreased p.o. intake. Continue gentle IV fluid rehydration. Continue to trend. (3) Bipolar 2 disorder: Plan: Resume Depakote and Seroquel. Trazodone held at this time. (4) COPD (chronic obstructive pulmonary disease): Plan: At baseline, patient uses 2 L of oxygen. Aim for oxygen saturation of 88 to 92%. Continue home budesonideformoterol. Continue albuterol inhaler as needed. Not an active exacerbation at this time. Qualifiers: COPD type: unspecified COPD Qualified Code(s): J44.9 - Chronic obstructive pulmonary disease, unspecified Lab Results Lab results reviewed: Yes 12/10/24 15:28 12/10/24 15:28 Diagnostic Imaging Results Diagnostic Imaging Results: positive Final report reviewed Core Measures Anticipated LOS I expect patient to be DC'd or transferred within 96 hours.: Yes Issues Hospital Issues and Management Plan: None anticipated. DVT/VTE - Prophylaxis VTE/DVT Device ordered at admit?: No Not Ordered - Medical Reason: Contraindicated VTE/DVT Prophylaxis med ordered at admit?: Yes
[2024-12-10 18:06] LABS: VBG BASE EXCESS 7.7 mmol/L (-2 - +2); VBG PCO2 51.8 mmHg (41-51); VBG PH 7.403 (7.31-7.41); VBG PO2 177.4 mmHg (25-47); VBG TOTAL CO2 34.2 mmol/L (24-29)
--- NOTE | 2024-12-10 18:08 | PHARMACY PROGRESS NOTE ---
Best Possible Medication History Admit Date and Time: Home Medications Medication Instructions Recorded Confirmed Type budesonide-formoterol HFA 80 1 inh inhalation BID #10. 2 grams 02/04/24 12/10/24 Rx mcg-4.5 mcg/actuation aerosol inhaler (Breyna) ibuprofen 600 mg tablet (IBU) 600 mg PO Q6H PRN pain 0 04/12/24 12/10/24 History quetiapine 300 mg tablet 300 mg PO HS 04/12/24 History trazodone 300 mg tablet 300 mg PO HS 04/12/24 History albuterol sulfate 90 mcg/actuation 1 - 2 puff inhalati on Q4HR PRN 05/06/24 12/10/24 Rx aerosol inhaler (Ventolin HFA) Shortness Of Air/Wheezi ng #1 ea divalproex 250 mg tablet,delayed 250 mg PO BID #180 ta bs 08/30/24 12/10/24 Rx release citalopram 20 mg tablet 20 mg PO DAILY #30 tabs 08/3012/10/24 Rx pregabalin 150 mg capsule (Lyrica) 150 mg PO BID #70 c aps 11/30/24 12/10/24 Rx sulfamethoxazole 800 1 tab PO BID #14 tabs 12/10/24 Rx mg-trimethoprim 160 mg tablet (Bactrim DS) acetaminophen 500 mg tablet 500 mg PO QID PRN fever or pain 12/04/24 12/10/24 History (Tylenol Extra Strength) cephalexin 500 mg capsule 500 mg PO Q8H #20 caps 12/0412/10/24 Rx tizanidine 4 mg capsule 4 mg PO Q8H PRN muscle spast icity 12/09/24 12/10/24 Rx #60 caps oxycodone-acetaminophen 5 mg-325 1 - 2 tab PO Q6H PRN pain 12/10/24 12/10/24 History mg tablet (Percocet) Processed by: Pharmacy Medications reviewed in ED?: Yes Medication History completed: Yes Secondary Source(s): Facility MAR as ONLY source [facility] Statement: As the person ultimately responsible for medication therapy, providers are able to order a medication from an existing home medication list in [facility] via the "Reconcile Routine" prior to Confirmation of that medication by network diagnostic support specialist. Such practice is discouraged except when the physician, in their clinical judgment, deems that a medical need exists for a medication without regard to previous use.
[2024-12-10] MEDS ORDERED: ALBUTEROL NEB 2.5 MG/3 ML INH PRN (18:23)
[2024-12-10] MEDS ORDERED: ONDANSETRON ODT 4 MG TABLET TL PRN (19:21)
[2024-12-10] MEDS ORDERED: ONDANSETRON 4 MG/2 ML VIAL IVP PRN (19:21)
[2024-12-10] MEDS ORDERED: SODIUM CHLORIDE FLUSH 0.9% 10 ML SYRINGE IVP PRN (19:21)
[2024-12-10] MEDS: FORMOTEROL FUMARATE NEB 20 MCG/2 ML INH SCH (20:24)
[2024-12-10] MEDS: BUDESONIDE 0.5 MG/2 ML NEB INH SCH (20:24)
[2024-12-10] MEDS: LACTATED RINGERS 1,000 ML IV SCH (20:36)
[2024-12-10] MEDS: HEPARIN 5,000 UNIT/ML VIAL SUBQ SCH (21:09)
[2024-12-10] MEDS: DIVALPROEX DR 250 MG TABLET PO SCH (21:12)
[2024-12-10] MEDS: SODIUM CHLORIDE FLUSH 0.9% 10 ML SYRINGE IVP SCH (23:30)
[2024-12-11] MEDS: ACETAMINOPHEN 325 MG TABLET PO PRN (02:37)
[2024-12-11] MEDS: CITALOPRAM HYDROBROMIDE 20 MG TABLET PO SCH (08:22)
[2024-12-11 09:05] LABS: HCT - HEMATOCRIT 34.0 % (37.0-47.0); HGB - HEMOGLOBIN 9.9 g/dL (12.0-16.0); MEAN PLATELET VOLUME 8.9 fL (7.9-10.8); PLT - PLATELET COUNT 177.0 10^3/uL (130-450); RED CELL DISTRIBUTION WIDTH 14.7 % (12.0-15.0)
[2024-12-11 09:26] LABS: BUN - BLOOD UREA NITROGEN 22.0 mg/dL (6-20); CARBON DIOXIDE - CO2 34.0 mmol/L (21-32); CREATININE 1.2 mg/dL (0.6-1.3); GFR - MDRD 46.0 (>89)
--- NOTE | 2024-12-11 09:32 | Discharge Summary ---
Discharge Summary Admit Date: 12/10/24 Discharge Date: 12/11/24 Discharging Provider: Dr. Jb Matthews Primary Care Provider: Maria Guadalupe Mon Code Status: Attempt Resuscitation Discharge Facility Name: Back to [facility] DIAGNOSES Discharge Diagnoses with Status of Each Condition: Acute metabolic encephalopathypatient presented with lethargy, falling asleep frequently. Less likely infection: White count within normal limits, completed course of cephalexin and Bactrim recently for cellulitis as well as urinary tract infection. No fevers, no chills. VBG showed slightly elevated CO2, pH is within normal limits. CT head is negative. RUDS was positive for tricyclic's, oxycodone, benzodiazepines and cannabinoids. Tizanidine, trazodone, Lyrica were held. The next morning, she had returned to her baseline mental status. She was advised to avoid the tizanidine unless absolutely necessary. She was also advised to abstain from marijuana or cannabinoid use while she is on pain medication and antispasmodics for this ankle fracture. She demonstrated understanding. Acute kidney injuryresolved. Bipolar disorder type IIresume Depakote and Seroquel. COPDpatient at baseline oxygen needs of 2 L. Continue home budesonideformoterol, albuterol inhaler as needed. HPI History of Present Illness: Patient is a 54-year-old female with a history of COPD normally on 2 L of oxygen who presents due to altered mentation. Per ER physician, she lives at pending sale to [facility], and assisted living facility, and she was in the smoking area using marijuana. She was falling asleep midsentence, and was brought in for that. When patient is seen, she does awake and is able to tell me her name and where she is. However, she is falling asleep after every sentence. She denies any fevers or chills. She does state that she is very cold. She is not having any difficulty breathing. She tells me that normally she wears 2 L of oxygen, and she does not use CPAP at home. She is unable to quantify her marijuana use or her benzodiazepine use or if she had accidentally increased her home medications prior to coming in. Her other medical conditions include diabetes mellitus, PTSD, bipolar disorder, recent urinary tract infection and recent ankle fracture undergoing nonsurgical treatment with a splint in place. Medication list is provided by pending sale to [facility] and includes tizanidine, Seroquel, Lyrica, Depakote. Patient has no known drug allergies. Unclear tobacco use, alcohol, recreational drug history as patient is unable to provide this information due to lethargy. In the ER, she is vitally stablesaturating 94% on 2 L, respiratory rate of 19, heart rate of 79, afebrile, with a blood pressure of 121/68. Lab work was reviewedshe has no white count, hemoglobin is within normal limits. Her potassium is slightly elevated at 4.9. Her creatinine is also above baseline at 1.6. Normally she runs between 1-1.3. Her bicarb on her BMP is 36, and venous blood gas is still pending. Her UA is positive for trace leukocyte esterase, as well as rare bacteria. Prior to admission, she was receiving antibiotics for urinary tract infection. Records were reviewedshe presented earlier this month on 12/03 after a fall in the bathroom. X-ray of ankle showed nondisplaced fracture of distal fibula of left foot. ER doctor discussed with orthopedic surgery, and he recommended a broad stirrup and splinting and follow-up outpatient. At this time, patient is admitted for altered mental status. HOSPITAL COURSE Hospital Course: Patient is a 54-year-old female with a history of COPD on 2 L of oxygen, bipolar disorder type II who presented for altered mentation. Patient has had a difficult past few months. She broke her ankle, and has been in a modified splint since. She had some cellulitis at the site of her splint site, for which she completed a course of Bactrim. She also had a urinary tract infection, and completed a course of cephalexin. For her ankle fracture she was prescribed oxycodone and tizanidine. On top of this, she was using marijuana. The combination of this with her typical antipsychotics resulted in likely polypharmacy and lethargy and altered mentation. When she was here, her tizanidine was held, as was her trazodone and Lyrica. She was advised to abstain from marijuana use. The next morning, she is back at her baseline mental status. She was deemed suitable for discharge back to her facility. She was advised to exercise caution with mixing marijuana with her current medications. She was advised to only use oxycodone and tizanidine if she had severe pain. ALLERGIES Allergies Allergy/AdvReac Type Severity Reaction Status Date / Time No Known Drug Allergies Allergy Verified 12/09/24 13:36 MEDICATIONS Ambulatory Orders Medication Instructions Recorded Confirmed budesonide-formoterol HFA 80 1 inh inhalation BID #10. 2 grams 02/04/24 12/10/24 mcg-4.5 mcg/actuation aerosol inhaler (Breyna) ibuprofen 600 mg tablet (IBU) 600 mg PO Q6H PRN pain 0 04/12/24 12/10/24 quetiapine 300 mg tablet 300 mg PO HS 04/12/24 trazodone 300 mg tablet 300 mg PO HS 04/12/24 albuterol sulfate 90 mcg/actuation 1 - 2 puff inhalati on Q4HR PRN 05/06/24 12/10/24 aerosol inhaler (Ventolin HFA) Shortness Of Air/Wheezi ng #1 ea divalproex 250 mg tablet,delayed 250 mg PO BID #180 ta bs 08/30/24 12/10/24 release citalopram 20 mg tablet 20 mg PO DAILY #30 tabs 08/3012/10/24 pregabalin 150 mg capsule (Lyrica) 150 mg PO BID #70 c aps 11/30/24 12/10/24 acetaminophen 500 mg tablet 500 mg PO QID PRN fever or pain 12/04/24 12/10/24 (Tylenol Extra Strength) tizanidine 4 mg capsule 4 mg PO Q8H PRN muscle spast icity 12/09/24 12/10/24 Held on 12/11/24. #60 caps Instructions: Resume on 12/25/24. oxycodone-acetaminophen 5 mg-325 1 - 2 tab PO Q6H PRN pain 12/10/24 12/10/24 mg tablet (Percocet) PHYSICAL EXAM AT DISCHARGE Vital Signs: Vital Signs x48h Temp Pulse Pulse Resp BP Pulse Ox O2 Flow Rate 12/11/24 13:20 97.9 F 76 18 119/69 94 2 12/11/24 09:39 78 20 4 12/11/24 08:10 4 12/11/24 08:10 98.8 F 89 20 108/78 95 3.5 Constitutional normal general appearance, abnormal body habitus (obese) HENMT normocephalic, head/scalp atraumatic and hearing grossly normal bilaterally Eyes PERRL, EOMs intact bilaterally and conjunctivae normal Neck/C-Spine visual inspection normal, trachea midline and cervical spine nontender Chest inspection of chest normal Respiratory breath sounds equal bilaterally, normal respiratory effort and clear to auscultation bilaterally Minimal wheezing, good air movement noted Cardiovascular normal heart rate noted, regular rhythm noted, no gallop, no rub and no murmur Gastrointestinal abdomen normal to inspection, abdomen soft to palpation, nontender to palpation and normoactive bowel sounds Genitourinary no CVA tenderness Extremities Left lower extremity and splint, with Ari Band-Aid wrapped around. Small abrasion on anterior left calle with no purulence, no active drainage, good granulation tissue Psychiatry Alert and oriented x 2. LABS 12/11/24 08:55 12/11/24 08:55 DIAGNOSTIC IMAGING Diagnostic Imaging Results: Final report reviewed FOLLOW UP Follow Up: Follow up PCP. Follow up orthopedic surgery. TIME SPENT Time Spent in Discharge (Minutes): 35 Discharge Plan Discharge Patient Disposition: 01 Home, Self Care Condition: Serious Prescriptions: Continued budesonide-formoterol [Breyna] 80-4.5 mcg/actuation HFA aerosol inhaler 1 inh inhalation BID Qty: 10.2 3RF divalproex 250 mg tablet,delayed release (DR/EC) 250 mg PO BID Qty: 180 0RF pregabalin [Lyrica] 150 mg capsule 150 mg PO BID Qty: 70 0RF ibuprofen [IBU] 600 mg tablet 600 mg PO Q6H PRN (Reason: pain) quetiapine 300 mg tablet 300 mg PO HS trazodone 300 mg tablet 300 mg PO HS citalopram 20 mg tablet 20 mg PO DAILY Qty: 30 2RF acetaminophen [Tylenol Extra Strength] 500 mg tablet 500 mg PO QID PRN (Reason: fever or pain) oxycodone-acetaminophen [Percocet] 5-325 mg tablet 1 - 2 tab PO Q6H PRN (Reason: pain) Rx Instructions: 1 TAB FOR PAIN OF 1-5, 2 TABS FOR PAIN OF 6-10 albuterol sulfate [Ventolin HFA] 90 mcg/actuation HFA aerosol inhaler 1 - 2 puff inhalation Q4HR PRN (Reason: Shortness Of Air/Wheezing) Qty: 1 12RF Held tizanidine 4 mg capsule 4 mg PO Q8H PRN (Reason: muscle spasticity) Qty: 60 5RF Hold Instructions: Resume on 12/25/24. Rx Instructions: for muscle pain and spasm Discontinued sulfamethoxazole-trimethoprim [Bactrim DS] 800-160 mg tablet 1 tab PO BID Qty: 14 0RF cephalexin 500 mg capsule 500 mg PO Q8H Qty: 20 0RF Diet: Regular Health Concerns: You came in because you were very confused and sleepy. You do not have any signs of any infection. You were not retaining CO2. It appears that you have treated your urinary tract infection appropriately with antibiotics given to you outpatient (cephalexin, course prescribed 12/04). You have also completed your antibiotics for your skin infection (Bactrim, 7 day course prescribed 12/01). Your kidney numbers were worse when you first got here. We hydrated you, held your muscle relaxer, and it appears that you're back to your normal self. Please abstain from marijuana use while on a muscle relaxer and pain medications for your ankle as it will make you more confused. Please continue to be non-weight bearing of your ankle and follow up with the orthopedic surgeon, Dr. Ray, as previously planned. I have attached his follow up information to this paper work. We are glad you're feeling better. Thank you for allowing us to take care of you. Print Language: Lao Patient Instructions: Understanding an Ankle Fracture Stand Alone Forms: PCP List Follow-up Care: Maria Guadalupe Mon ARNP [Primary Care Provider, Family Practice] Jovanni Ray DO [Provider Admit Priv/Credential, Orthopedics] Vitals documented within 30 minutes of discharge?: Yes
[2024-12-11] MEDS: KETOROLAC 15 MG/ML VIAL IVP STA (10:33)
[2024-12-11] MEDS: oxyCODONE 5 MG TABLET PO ONE (12:42)
[2024-12-11 16:59] VITALS: BP 102/69; TEMP 97.2; O2SAT 93
== END 2024-12-11 16:30 | disposition home or self-care (01) ==
LOC: MS2 14:55 → ED 14:55 → MS2 18:41
PROVIDERS: ADMIT Internal Medicine; ATTEND Internal Medicine
DX: D64.9 Anemia, unspecified; N17.9 Acute kidney failure, unspecified; G93.41 Metabolic encephalopathy; Z87.440 Personal history of urinary (tract) infections; F17.210 Nicotine dependence, cigarettes, uncomplicated; J96.11 Chronic respiratory failure with hypoxia; Z99.3 Dependence on wheelchair; F31.81 Bipolar II disorder; Z99.81 Dependence on supplemental oxygen; J44.9 Chronic obstructive pulmonary disease, unspecified; F43.10 Post-traumatic stress disorder, unspecified; S82.832D Other fracture of upper and lower end of left fibula, subsequent encounter for closed fracture with routine healing; W19.XXXD Unspecified fall, subsequent encounter

== ENCOUNTER 2025-01-17 15:49 | Inpatient (IN) ==
--- NOTE | 2025-01-17 15:57 | ED Physician Documentation ---
History of Present Illness Stated complaint Stated Complaint: DIZZY Chief complaint Chief Complaint: UTI History obtained from History obtained from: Patient and EMS Additonal information Additional information: 54-year-old woman with history of pyelonephritis, frequent UTIs, COPD, left lower extremity ulcer. She was seen by my partner yesterday for fever and UTI symptoms. Had white count of 11.9 and positive urinalysis that is preliminarily growing greater than 100,000 gram-negative rods. She received 2 g of Rocephin. She continues to be febrile today and feeling poorly. Received 1 dose of Keflex this morning. Prior urine cultures reviewed. Most recent complete urine culture was from May growing pansensitive E. coli, but prior to that, in March, had ESBL E. coli resistant to ampicillin, Unasyn, and cefazolin Meds/Allgy Home Medications Ambulatory Orders Medication Instructions Recorded Confirmed budesonide-formoterol HFA 80 1 inh inhalation BID #10. 2 grams 02/04/24 01/16/25 mcg-4.5 mcg/actuation aerosol inhaler (Breyna) ibuprofen 600 mg tablet (IBU) 600 mg PO Q6H PRN pain 0 04/12/24 01/16/25 quetiapine 300 mg tablet 300 mg PO HS 04/12/24 trazodone 300 mg tablet 300 mg PO HS 04/12/24 albuterol sulfate 90 mcg/actuation 1 - 2 puff inhalati on Q4HR PRN 05/06/24 01/16/25 aerosol inhaler (Ventolin HFA) Shortness Of Air/Wheezi ng #1 ea divalproex 250 mg tablet,delayed 250 mg PO BID #180 ta bs 08/30/24 01/16/25 release citalopram 20 mg tablet 20 mg PO DAILY #30 tabs 08/3001/16/25 acetaminophen 500 mg tablet 500 mg PO QID PRN fever or pain 12/04/24 01/16/25 (Tylenol Extra Strength) tizanidine 4 mg capsule 4 mg PO Q8H PRN muscle spast icity 12/09/24 01/16/25 Held on 12/11/24. #60 caps Instructions: Resume on 12/25/24. oxycodone-acetaminophen 5 mg-325 1 - 2 tab PO Q6H PRN pain 12/10/24 01/16/25 mg tablet (Percocet) diclofenac sodium 75 mg 75 mg PO BID 12/22/24 tablet,delayed release pregabalin 150 mg capsule 150 mg PO BID #60 caps 12/2601/16/25 levothyroxine 25 mcg tablet 25 mcg PO QDAY #90 tabs 01/16/25 (Euthyrox) cephalexin 500 mg capsule 500 mg PO BID #14 caps 01/16 Allergies Allergies Allergy/AdvReac Type Severity Reaction Status Date / Time No Known Drug Allergies Allergy Verified 01/16/25 09:00 PFSH Active Problems All Active Problems Sepsis (Acute) Pyelonephritis (Acute) Urinary tract infection (Acute) Ground-level fall (Acute) Urinary incontinence (Acute) Closed fracture of left distal fibula (Acute) Hyperlipidemia (Chronic) Marijuana dependence (Chronic) Tobacco dependence (Chronic) TSH elevation (Chronic) Fatty (change of) liver, not elsewhere classified (Chronic) Osteoporosis (Chronic) Stage 3a chronic kidney disease (CKD) (Chronic) Ankle fracture, left (Acute) Anemia (Acute) COPD (chronic obstructive pulmonary disease) (Chronic) Chronic respiratory failure (Chronic) Migraine with aura (Chronic 10/22/06) Psoriasis (Chronic 11/20/06) Right knee buckling (Chronic) Left shoulder strain (Chronic) Reactive depression (situational) (Chronic) Asthma, moderate persistent (Chronic 10/22/06) Essential (primary) hypertension (Chronic 07/13/07) Bipolar 2 disorder (Chronic) Wheelchair dependent (Chronic) Generalized anxiety disorder (Chronic) Chronic pain (Chronic) Hyperkalemia (Chronic) PTSD (post-traumatic stress disorder) (Chronic) Medical History Medical History History of compression fracture of spine T12 (see CT 01/19/2022) History of femur fracture History of fibula fracture History of humerus fracture left arm 09/17/2024 History of osteomyelitis Infected prosthetic hip left hip Metatarsal fracture Acute-subacute, oblique oriented 5th metatarsal shaft fracture. 06/02/2024 Surgical History Surgical History History of left hip replacement revision due to osteomyelitis, [place], 2016 Hx of appendectomy Hx of bilateral hip replacements Hx of cholecystectomy Hx of inguinal hernia repair right Hx of lithotripsy 2007 Family History Family History Mother Diabetes Heart failure Father Diabetes Heart failure Social History Social History (Updated 01/16/25 @ 09:07 by Prashant Ruiz, RN, BSN) Smoking Status: Current every day smoker Number of Years Smoked: 30 How many cigarettes a day do you smoke? (20 cigarettes=1 Pk): 20 Do you vape?: No Patient requests smoking cessation consult: No Initiate information on smoking cessation: No Living arrangement: Assisted living Marital Status: Single Living Condition: Alone Support Person: Yes Living Situation Details: Patient resides at [facility] Physical Activity: Chairfast Level: Dependent Physical - Functional Details: [employer] for transfers. Do you feel safe in your home environment?: Yes History of physical, verbal, emotional, or financial abuse?: No ETOH Use: None Substance Use: cannabis (any form) Substance Use Details: Pt is unable to respond to questions POLST Patient has POLST: No Exam Exam Vital Signs: Vital Signs x48h Temp Pulse Resp BP Pulse Ox 01/17/25 15:59 38.6 C H 114 H 18 116/71 89 L Constitutional She has shaking chills despite being overdressed Respiratory breath sounds equal bilaterally, normal respiratory effort and clear to auscultation bilaterally Cardiovascular normal heart rate noted, regular rhythm noted and no murmur Gastrointestinal abdomen soft to palpation and nontender to palpation Neurology GCS 15 Results Vitals Vitals: Vital Signs - 24 hr 01/17/25 15:59 Temperature 38.6 C H Temperature Source Oral Pulse Rate 114 H Respiratory Rate 18 Blood Pressure 116/71 O2 Saturation 89 L O2 Source Room air Pain Intensity 0 Oxygen O2 Source [With Activity] Room air O2 Source [Without Activity] Room air O2 Source Room air Labs Labs: Laboratory Tests 01/17/25 16:14 WBC 11.1 H RBC 3.72 L Hgb 10.8 L Hct 36.4 L MCV 97.8 MCH 29.0 MCHC 29.7 L RDW 15.0 Plt Count 106 L MPV 9.7 Neut # (Auto) 8.9 H Lymph # (Auto) 0.8 L [place] # (Auto) 1.4 H Eos # (Auto) 0.1 Baso # (Auto) 0.0 Absolute Nucleated RBC 0.00 Nucleated RBC % 0.0 Sodium 134 L Potassium 5.2 H Chloride 95 L Carbon Dioxide 33 H Anion Gap 6.0 BUN 35 H Creatinine 1.5 H Estimated GFR (MDRD) 36 L Glucose 92 Lactic Acid 0.8 Calcium 9.0 Total Bilirubin 0.4 AST 30 ALT 13 Alkaline Phosphatase 64 Total Protein 7.5 Albumin 3.5 Globulin 4.0 Albumin/Globulin Ratio 0.9 L Rads (name of study) CT abdomen pelvis demonstrates recurrent right pyelonephritis, no obstruction. Multiple level osteoporotic compression fractures: Relevant Findings:: Final report received and EMP independent interpretation of test (No urinary obstruction) Procedures General procedure General procedure: She was difficult for IV access and lack of IV access delayed administration of IV antibiotics. I personally placed a long 22-gauge IV in the right forearm using real-time ultrasound guidance after ChloraPrep the flushed and ga well. PD Medical Decision Making ED course ED course: She Flor presents a day after being diagnosed with UTI. She had received Rocephin here, but I do note that on a urine culture earlier this year she grew ESBL E. coli. She appears ill, febrile, tachycardic. Lab work demonstrates white count about the same as yesterday with mild thrombocytopenia which is new. She has some GARTH on CKD on CMP. Bicarb is elevated but that is chronic probably from CO2 retention. She did have a viral respiratory swab done yesterday which was negative. Given the history of ESBL E. coli and lack of improvement and persistent febrile nature she was administered meropenem after blood cultures. No lactic acidosis, no evidence of obstruction on CT. She does fit sepsis criteria identified on arrival with known source and abnormal vital signs. Spoke with VLADIMIR Lawson for admission at 5:01 PM. Discharge Plan Discharge Patient Disposition: 66 [facility] DC/Xfer Condition: Serious Clinical Impression: Pyelonephritis, Sepsis
[2025-01-17] MEDS: SODIUM CHLORIDE 0.9% 1,000 ML IV STA (16:03)
[2025-01-17 16:24] LABS: HCT - HEMATOCRIT 36.4 % (37.0-47.0); HGB - HEMOGLOBIN 10.8 g/dL (12.0-16.0); MEAN PLATELET VOLUME 9.7 fL (7.9-10.8); NRBC ABSOLUTE COUNT (AUTO) 0.00 x10^3/uL; NUCLEATED RED BLOOD CELLS AUTO 0.0 /100WBC; PLT - PLATELET COUNT 106 10^3/uL (130-450); RED CELL DISTRIBUTION WIDTH 15.0 % (12.0-15.0)
--- OUTSIDE RECORDS SUMMARY | 2025-01-17 16:24 | EXTERNAL MEDICAL SUMMARY RPT | Continuity of Care Document ---
Author Organization [place] Address [address] [place] [id number] Phone Problems date description facility 2024-11-04 11:38 Sepsis, unspecified [facility] 11:38 Type 2 diabetes shelia itus with other [facility] 11:38 Type 2 diabetes mellitus withou t complications [facility]04 11:38 Bipolar II disorder [facility] 2024-11-04 11:38 Major depressive dis order, single episode, unspecified [facility] 2024-11-04 11:38 Generalized anxiety disorder [facility] 2024-11-[facility] 11:38 Encephalopathy, unspecified [facility] 2024-11-04 11:38 Essential (primary) [facility]ensio [facility] 11:38 Acute upper respiratory infecti on, unspecified [facility] 2024-11-04 11:38 Chronic obstructive pulmonary disease with (acute) [facility]ation [facility] 11:38 Mild intermittent asthma with ( acute) exacerbation [facility] 2024-11-04 11:38 Moderate persistent asthma with (acute) exacerbation [facility] 2024-11-04 11:38 Unspecified asthma with (acute) [facility]ation [facility] 11:38 Acute [facility] with [facility]04 11:38 Acute and chronic respiratory f ailure with hypoxia [facility]04 11:38 [facility] 11:38 Acute kidney failure, unspecifi ed [facility]04 11:38 Urinary tract infection, site n ot specified [facility] 2024-11-04 11:38 Cough, [facility] 2024-11-04 11:38 Dyspnea, unspecified [facility] 2024-11-04 11:38 [facility]ness [facility] breath [facility] 2024-11-04 11:38 Hypoxemia [facility] 2024-11-04 11:38 Fever, unspecified [facility] 2024-11-04 11:38 Other fatigue [facility] 2024-11-04 11:38 Strain of unspecifie d muscle, fascia and tendon at shoulder and upper arm level, right arm, initial encounter [facility] 2024-11-04 11:38 Unspecified injury o f right shoulder and upper arm, [facility] 2024-11-04 11:38 Fracture of unspecif ied metatarsal bone(s), unspecified foot, initial encounter [facility] closed [facility] 2024-11-04 11:38 Unspecified injury of left foot , [facility] 2024-11-04 11:38 Poisoning by fentany l or fentanyl analogs, accidental (unintentional), [facility] 2024-11-04 11:38 Encounter for issue of repeat p rescription [facility] 2024-11-04 11:38 Dependence on wheelchair [facility] 2024-11-04 11:40 Sepsis, unspecified [facility] 2024-11-04 11:40 Type 2 diabetes shelia itus with other specified complication [facility] 2024-11-04 11:40 Type 2 diabetes mellitus withou t complications [facility] 2024-11-04 11:[address] [facility] 2024-11-04 11:40 Bipolar II disorder [facility] 2024-11-04 11:40 Major depressive dis order, single episode, unspecified [facility] 2024-11-04 11:40 Generalized anxiety disorder [facility] 2024-11-04 11:40 Other chronic pain [facility] 2024-11-04 11:40 Encephalopathy, unspecified [facility] 2024-11-04 11:40 Essential (primary) hypertensio n [facility] 2024-11-04 11:40 Acute upper respiratory infecti on, unspecified [employer] 2024-11-04 11:40 Chronic obstructive pulmonary disease with (acute) exacerbation [facility] 2024-11-04 11:40 Mild intermittent asthma with ( acute) exacerbation [facility] 2024-11-04 11:40 Moderate persistent asthma with (acute) exacerbation [facility] 2024-11-04 11:40 Unspecified asthma with (acute) exacerbation [facility] 2024-11-04 11:40 Acute respiratory failure with hypoxia [facility] 2024-11-04 11:40 Acute and chronic respiratory f ailure with hypoxia [facility] 2024-11-04 11:40 Pain in right shoulder [facility] 2024-11-04 11:40 Acute kidney failure, unspecifi ed [facility] 2024-11-04 11:40 Urinary tract infection, site n ot specified [facility] 2024-11-04 11:40 Cough, unspecified [facility] 2024-11-04 11:40 Dyspnea, unspecified [facility] 2024-11-04 11:40 Shortness of breath [facility] 2024-11-04 11:40 Hypoxemia [facility] 2024-11-04 11:40 Fever, unspecified [facility] [facility] 2024-11-04 11:40 Other [facility] 11:40 Strain of unspecifie d muscle, fascia and tendon at shoulder and upper arm level, right arm, initial encounter [facility] 2024-11-04 11:40 Unspecified injury o f right shoulder and upper arm, [facility] 11:40 Fracture of unspecif ied metatarsal bone(s), unspecified foot, initial encounter for closed fracture [facility] 2024-11-04 11:40 Unspecified injury of left foot , initial encounter [facility] 2024-11-04 11:40 Poisoning by fentany l or fentanyl analogs, accidental (unintentional), initial encounter [facility] 2024-11-04 11:40 Encounter for issue of repeat p rescription [facility] 2024-11-04 11:40 Dependence on wheelchair [employer] 2024-11-04 11:45 Sepsis, unspecified organism [facility] 2024-11-04 11:45 Type 2 diabetes shelia itus with other specified complication [facility] 2024-11-04 11:45 Type 2 diabetes mellitus withou t complications [facility] 2024-11-04 11:45 Bipolar II disorder [facility] 2024-11-04 11:45 Major depressive dis order, single episode, unspecified [facility] 2024-11-04 11:45 Generalized anxiety disorder [facility] 2024-11-04 11:45 Encephalopathy, unspecified [facility] 2024-11-04 11:45 Essential (primary) hypertensio n [facility] 2024-11-04 11:45 Acute upper respiratory infecti on, unspecified [facility] 2024-11-04 11:45 Chronic obstructive pulmonary disease with (acute) exacerbation [facility] 2024-11-04 11:45 Mild intermittent asthma with ( acute) [facility] 2024-11-04 11:45 Moderate persistent asthma with (acute) exacerbation [facility] 2024-11-04 11:45 Unspecified asthma with (acute) exacerbation [facility]24-[facility]04 11:45 Acute respiratory failure with hypoxia [facility] 2024-11-04 11:45 Acute and chronic respiratory f ailure with hypoxia [facility] 2024-11-04 11:45 Pain in right shoulder [facility] 2024-11-04 11:45 Acute kidney failure, unspecifi ed [facility] 2024-11-04 11:45 Urinary tract infection, site n ot specified [facility] 2024-11-04 11:[address]ough, [facility] 2024-11-04 11:45 Dyspnea, unspecified [facility] 2024-11-04 11:45 Shortness of breath [facility] 2024-11-04 11:[address] [facility] 2024-11-04 11:45 Fever, unspecified [facility] 2024-11-04 11:45 Other fatigue [facility] 2024-11-04 11:45 Strain of unspecifie d muscle, fascia and tendon at shoulder and upper arm level, right arm, initial [facility]04 11:45 Unspecified injury o f right shoulder and upper arm, [facility] 2024-11-04 11:45 Fracture of unspecif ied metatarsal bone(s), unspecified foot, initial encounter for closed fracture [facility]04 11:45 Unspecified injury of left foot , initial [facility]24-11-04 11:45 Poisoning by fentany l or fentanyl analogs, accidental (unintentional), [facility] 2024-11-04 11:45 Encounter for issue of repeat p rescription [facility] 2024-11-04 11:45 Dependence on wheelchair [facility] 2024-11-04 11:48 Sepsis, unspecified organism [facility] 11:48 Type 2 diabetes shelia itus with other specified complication [facility] 2024-11-04 11:48 Type 2 diabetes mellitus withou t complications [facility] 2024-11-04 11:48 Bipolar II disorder [facility] 2024-11-04 11:48 Major depressive dis order, single episode, unspecified [facility] 2024-11-04 11:48 Generalized anxiety disorder [facility] 2024-11-04 11:48 Encephalopathy, unspecified [facility] 2024-11-04 11:48 Essential (primary) hypertensio n [facility] 2024-11[facility]04 11:48 Acute upper respiratory infecti on, unspecified [facility] 2024-11-04 11:48 Chronic obstructive pulmonary disease with (acute) exacerbation [facility]24-11[facility]04 11:48 Mild intermittent asthma with ( acute) exacerbation [facility]24-11[facility]04 11:48 Moderate persistent asthma with (acute) exacerbation [facility] 2024-11[facility]04 11:48 Unspecified asthma with (acute) exacerbation [facility] 2024-11-04 11:48 Acute respiratory failure with hypoxia [facility] 2024-11-04 11:48 Acute and chronic respiratory f ailure with hypoxia [facility] 2024-11-04 11:48 Pain in right shoulder [facility] 2024-11-04 11:48 Acute kidney failure, unspecifi ed [facility] 2024-11-04 11:48 Urinary tract infection, site n ot specified [facility] 2024-11-04 11:48 Cough, unspecified [facility] 2024-11-04 11:48 Dyspnea, unspecified [facility] 2024-11-04 11:48 Shortness of breath [facility] 2024-11-04 11:48 Hypoxemia [facility] 2024-11-04 11:48 Fever, unspecified [facility] 2024-11-04 11:48 Other fatigue [facility] 2024-11-04 11:48 Strain of unspecifie d muscle, fascia and tendon at shoulder and upper arm level, right arm, initial encounter [facility] 2024-11-04 11:48 Unspecified injury o f right shoulder and upper arm, initial encounter [facility] 2024-11-04 11:48 Fracture of unspecif ied metatarsal bone(s), unspecified foot, initial encounter for closed fracture [facility] 2024-11-04 11:48 Unspecified injury of left foot , initial encounter [facility] 2024-11-04 11:48 Poisoning by fentany l or fentanyl analogs, accidental (unintentional), [facility] 2024-11-04 11:48 Encounter for issue of repeat p rescription [facility] 2024-11-04 11:48 Dependence on wheelchair [facility] 2024-11-04 13:06 Sepsis, unspecified organism [facility] 2024-11-04 13:06 Type 2 diabetes shelia itus with other specified complication [facility] 2024-11-04 13:06 Type 2 diabetes mellitus withou t complications [facility] 2024-11-04 13:06 Bipolar II disorder [facility] 2024-11-04 13:06 Major depressive dis order, single episode, unspecified [facility] 2024-11-04 13:06 Generalized anxiety disorder [facility] 2024-11-04 13:06 Encephalopathy, unspecified [facility] 2024-11-04 13:06 Essential (primary) hypertensio n [facility] 2024-11-04 13:06 Acute upper respiratory infecti on, unspecified [facility] 2024-11-04 13:06 Chronic obstructive pulmonary disease with (acute) exacerbation [facility] 2024-11-04 13:06 Mild intermittent asthma with ( acute) exacerbation [facility] 2024-11-04 13:06 Moderate persistent asthma with (acute) exacerbation [facility] 2024-11-04 13:06 Unspecified asthma with (acute) exacerbation [facility] 2024-11-04 13:06 Acute respiratory failure with hypoxia [facility] 2024-11-04 13:06 Acute and chronic respiratory f ailure with hypoxia [facility] 2024-11-04 13:06 Pain in right shoulder [facility] 2024-11-04 13:06 Acute kidney failure, unspecifi ed [facility] 2024-11-04 13:06 Urinary tract infection, site n ot specified [facility] 2024-11-04 13:06 Cough, unspecified [facility] 2024-11-04 13:06 Dyspnea, unspecified [facility] 2024-11-04 13:06 Shortness of breath [facility] 2024-11-04 13:06 Hypoxemia [facility] 2024-11-04 13:06 Fever, unspecified [facility] 2024-11-04 13:06 Other fatigue [facility] 2024-11-04 13:06 Strain of unspecifie d muscle, fascia and tendon at shoulder and upper arm level, right arm, [facility] 2024-11-04 13:06 Unspecified injury o f right shoulder and upper arm, initial encounter [facility] 2024-11-04 13:06 Fracture of unspecif ied metatarsal bone(s), unspecified foot, initial encounter for closed fracture [facility] 2024-11-04 13:06 Unspecified injury of left foot , [facility] 2024-11-04 13:06 Poisoning by fentany l or fentanyl analogs, accidental (unintentional), [facility]04 13:06 Encounter for issue of repeat p rescription [facility] 2024-11-04 13:06 Dependence on wheelchair [facility] 2024-11-04 13:11 Sepsis, unspecified organism [facility] 13:11 Type 2 diabetes shelia itus with other specified complication [facility] 2024-11-04 13:11 Type 2 diabetes mellitus withou t complications [facility] 2024-11-04 13:11 Bipolar II disorder [facility] 2024-11-04 13:11 Major depressive dis order, single episode, unspecified [facility] 2024-11-04 13:11 Generalized anxiety disorder [facility] 2024-11-04 13:11 Encephalopathy, unspecified [facility] 2024-11-04 13:11 Essential (primary) hypertensio n [facility] 2024-[facility]04 13:11 Acute upper respiratory infecti on, unspecified [facility] 2024-11-04 13:11 Chronic obstructive pulmonary disease with (acute) exacerbation [facility]24-[facility]04 13:11 Mild intermittent asthma with ( acute) exacerbation [facility] 2024-11-04 13:11 Moderate persistent asthma with (acute) exacerbation [facility] 2024-11[facility]04 13:11 Unspecified asthma with (acute) exacerbation [facility] 2024-11-04 13:11 Acute respiratory failure with hypoxia [facility] 2024-11-04 13:11 Acute and chronic respiratory f ailure with hypoxia [facility] 2024-11-04 13:11 Pain in right shoulder [facility] 2024-11-04 13:11 Acute kidney failure, unspecifi ed [facility] 2024-11[facility]04 13:11 Urinary tract infection, site n ot specified [facility] 2024-11-04 13:11 Cough, unspecified [facility] 2024-11-04 13:11 Dyspnea, unspecified [facility] 2024-11-04 13:11 Shortness of breath [facility] 2024-11-04 13:11 Hypoxemia [facility] 2024-11-04 13:11 Fever, unspecified [facility] 2024-11-04 13:11 Other fatigue [facility] 2024-11-04 13:11 Strain of unspecifie d muscle, fascia and tendon at shoulder and upper arm level, right arm, initial encounter [facility] 2024-11-04 13:11 Unspecified injury o f right shoulder and upper arm, initial encounter [facility] 2024-11-04 13:11 Fracture of unspecif ied metatarsal bone(s), unspecified foot, initial encounter for closed fracture [facility] 2024-11-04 13:11 Unspecified injury of left foot , initial encounter [facility] 2024-11-04 13:11 Poisoning by fentany l or fentanyl analogs, accidental (unintentional), initial encounter [facility] 2024-11-04 13:11 Encounter for issue of repeat p rescription [facility] 2024-11-04 13:11 Dependence on wheelchair [facility] 2024-11-24 15:54 Strain of unspecifie d muscle, fascia and tendon at shoulder and upper arm level, right arm, initial encounter [facility] 2024-11-26 09:03 Strain of unspecifie d muscle, fascia and tendon at shoulder and upper arm level, right arm, initial encounter [facility] 2024-11-26 14:06 Procedure and treatm ent not carried out due to patient leaving prior to being seen by health care provider [facility] 2024-11-30 12:40 Procedure and treatm ent not carried out due to patient leaving prior to being seen by health care provider [facility] 2024-12-01 13:25 Strain of unspecifie d muscle, fascia and tendon at shoulder and upper arm level, right arm, initial encounter [facility] 2024-12-01 14:41 Cellulitis of left lower limb [facility] 2024-12-01 15:20 Cellulitis of left lower limb [facility] 2024-12-02 11:55 Toxic effect of unsp ecified spider venom, accidental (unintentional), [facility] 2024-12-03 11:37 Cellulitis of left lower limb [facility] 2024-12-03 11:37 Toxic effect of unsp ecified spider venom, accidental (unintentional), initial encounter [facility] 2024-12-04 13:14 Acute cystitis without hematuri a [facility] 2024-12-09 14:45 Cellulitis of left lower limb [facility] 2024-12-09 14:45 Acute cystitis without hematuri a [facility] 2024-12-09 14:45 Torus fracture of lo wer end of left fibula, initial encounter for closed fracture [facility] 2024-12-10 08:09 Weakness [facility] 2024-12-10 12:39 Bed confinement status [facility] 2024-12-10 13:02 Pain in left ankle and joints o f left foot [facility] 2024-12-10 18:24 Encephalopathy, unspecified [facility] 2024-12-10 21:01 Bipolar II disorder [facility] 2024-12-10 21:01 Encephalopathy, unspecified [facility] 2024-12-10 21:01 Chronic [facility] pulmonary d isease, [facility] 2024-12-10 21:01 Acute kidney failure, unspecifi ed [facility] 2024-12-11 09:32 Bipolar II disorder [facility] 2024-12-11 09:32 Encephalopathy, unspecified [facility] 2024-12-11 09:32 Chronic obstructive pulmonary d isease, unspecified [facility] 2024-12-11 09:32 Acute kidney failure, unspecifi ed [facility] 2024-12-11 12:42 Bipolar II disorder [facility] 2024-12-11 12:42 Encephalopathy, unspecified [facility] 2024-12-11 12:42 Chronic obstructive pulmonary d isease, unspecified [facility] 2024-12-11 12:42 Acute kidney failure, unspecifi ed [facility] 2024-12-11 12:58 Bipolar II disorder [facility] 2024-12-11 12:58 Encephalopathy, unspecified [facility] 2024-12-11 12:58 Chronic obstructive pulmonary d isease, unspecified [facility] 2024-12-11 12:58 Acute kidney failure, unspecifi ed [facility] 2024-12-11 13:20 Bipolar II disorder [facility] 2024-12-11 13:20 Encephalopathy, unspecified [facility] 2024-12-11 13:20 Chronic obstructive pulmonary d isease, unspecified [facility] 2024-12-11 13:20 Acute kidney failure, unspecifi ed [facility] 2024-12-11 17:03 Bipolar II disorder [facility] 2024-12-11 17:03 Encephalopathy, unspecified [facility] 2024-12-11 17:03 Chronic obstructive pulmonary d isease, unspecified [facility] 2024-12-11 17:03 Acute kidney failure, unspecifi ed [facility] 2024-12-13 06:33 Sepsis, unspecified organism [facility] 2024-12-13 06:33 Type 2 diabetes shelia itus with other specified complication [facility] 2024-12-13 06:33 Type 2 diabetes mellitus withou t complications [facility] 2024-12-13 06:33 Bipolar II disorder [facility] 2024-12-13 06:33 Major depressive dis order, single episode, unspecified [facility] 2024-12-13 06:33 Generalized anxiety disorder [facility] 2024-12-13 06:33 Encephalopathy, unspecified [facility] 2024-12-13 06:33 Essential (primary) hypertensio n [facility] 2024-12-13 06:33 Acute upper respiratory infecti on, unspecified [facility] 2024-12-13 06:33 Chronic obstructive pulmonary disease with (acute) exacerbation [facility] 2024-12-13 06:33 Chronic obstructive pulmonary d isease, unspecified [facility] 2024-12-13 06:33 Mild intermittent [facility] with ( [facility]:33 Moderate persistent asthma with (acute) exacerbation [facility] 2024-12-13 06:33 Unspecified asthma with (acute) exacerbation [facility] 2024-12-13 06:33 Acute respiratory failure with hypoxia [facility] 2024-12-13 06:33 Acute and chronic respiratory f ailure with hypoxia [facility] 2024-12-13 06:33 Cellulitis of left lower limb [facility] 2024-12-13 06:33 Pain in right shoulder [facility] 2024-12-13 06:33 Pain in left ankle and joints o f left foot [facility] 2024-12-13 06:33 Acute kidney failure, unspecifi ed [facility] 2024-12-13 06:33 Acute cystitis without hematuri a [facility] 2024-12-13 06:33 Urinary tract infection, site n ot specified [facility] 2024-12-13 06:[address] [facility], [facility] 2024-12-13 06:33 Dyspnea, [facility] 2024-12-13 06:33 Shortness of [facility] 2024-12-13 06:33 Hypoxemia [facility] 2024-12-13 06:33 Disorientation, unspecified [facility] 2024-12-13 06:33 Fever, [facility] 2024-12-13 06:33 Other fatigue [facility] 2024-12-13 06:33 Strain of unspecifie d muscle, fascia and tendon at shoulder and upper arm level, right arm, initial encounter [facility] 2024-12-13 06:33 Fracture of unspecif ied metatarsal bone(s), unspecified foot, initial encounter for closed fracture [facility] 2024-12-13 06:33 Unspecified injury of left foot , initial encounter [facility] 2024-12-13 06:33 Poisoning by fentany l or fentanyl analogs, accidental (unintentional), initial encounter [facility] 2024-12-13 06:33 Toxic effect of unsp ecified spider venom, accidental (unintentional), initial encounter [facility] 2024-12-13 06:33 Procedure and treatm ent not carried out due to patient leaving prior to being seen by health care provider [facility] 2024-12-13 06:33 Encounter for issue of repeat p rescription [facility] 2024-12-13 06:33 Dependence on wheelchair [facility] 2024-12-13 07:09 Bipolar II disorder [facility] 2024-12-13 07:09 Encephalopathy, unspecified [facility] 2024-12-13 07:09 Chronic obstructive pulmonary d isease, unspecified [facility] 2024-12-13 07:09 Acute kidney failure, unspecifi ed [facility] 2024-12-13 09:24 Bed confinement status [facility] 2024-12-13 09:43 Weakness [facility] 2024-12-13 09:46 Encounter for observ ation for other suspected diseases and conditions ruled out [facility] 2024-12-14 08:41 Bipolar II disorder [facility] 2024-12-14 08:41 Encephalopathy, unspecified [facility] 2024-12-14 08:41 Chronic obstructive pulmonary d isease, unspecified [facility] 2024-12-14 08:41 Pain in left ankle and joints o f left foot [facility] 2024-12-14 08:41 Acute kidney failure, unspecifi ed [facility] 2024-12-14 08:41 Altered mental status, unspecif ied [facility] 2024-12-15 09:45 Sepsis, unspecified organism [facility] 2024-12-15 09:45 Type 2 diabetes shelia itus with other specified complication [facility] 2024-12-15 09:45 Type 2 diabetes mellitus withou t complications [facility] 2024-12-15 09:45 Bipolar II disorder [facility] 2024-12-15 09:45 Major depressive dis order, single episode, unspecified [facility] 2024-12-15 09:45 Generalized anxiety disorder [facility] 2024-12-15 09:45 Encephalopathy, unspecified [facility] 2024-12-15 09:45 Essential (primary) hypertensio n [facility] 2024-12-15 09:45 Chronic obstructive pulmonary disease with (acute) exacerbation [facility] 2024-12-15 09:45 Mild intermittent asthma with ( acute) exacerbation [facility] 2024-12-15 09:45 Acute respiratory failure with hypoxia [facility] 2024-12-15 09:45 Acute and chronic respiratory f ailure with hypoxia [facility] 2024-12-15 09:45 [facility]ulitis of left lower limb [facility] 2024-12-15 09:45 Pain in right shoulder [facility] 2024-12-15 09:45 Pain in left ankle and joints o f left foot [facility] 2024-12-15 09:45 Acute kidney failure, unspecifi ed [facility] 2024-12-15 09:45 Acute cystitis without hematuri a [facility] 2024-12-15 09:45 Urinary tract infection, site n ot specified [facility] 2024-12-15 09:45 Cough, [facility] 2024-12-15 09:45 Shortness of breath [facility] 2024-12-15 09:[address] [facility] 2024-12-15 09:45 Disorientation, unspecified [facility] 2024-12-15 09:45 Fever, unspecified [facility] 2024-12-15 09:[address] 2024-12-15 09:45 Strain of unspecifie d muscle, fascia and tendon at shoulder and upper arm level, right arm, initial encounter [facility] 2024-12-15 09:45 Poisoning by fentany l or fentanyl analogs, accidental (unintentional), [facility] 2024-12-15 09:45 Toxic effect of unsp ecified spider venom, accidental (unintentional), initial encounter [facility] 2024-12-15 09:45 Procedure and treatm ent not carried out due to patient leaving prior to being seen by health care provider [facility] 2024-12-15 09:45 Encounter for issue of repeat p rescription [facility]15 09:45 Dependence on wheelchair [facility] 2024-12-15 13:52 Transient alteration of awarene ss [facility] 2024-12-15 14:16 Altered mental status, unspecif ied [facility] 2024-12-20 08:35 Bed confinement status [facility] 2024-12-22 09:12 Sepsis, unspecified organism [facility] 2024-12-22 09:12 Type 2 diabetes shelia itus with other specified complication [facility] 2024-12-22 09:12 Type 2 diabetes mellitus withou t complications [facility] 2024-12-22 09:12 Bipolar II disorder [facility] 2024-12-22 09:12 Major depressive dis order, single episode, unspecified [facility] 2024-12-22 09:12 Generalized anxiety disorder [facility]24-12-22 09:12 Encephalopathy, unspecified [facility] 2024-12-22 09:12 Essential (primary) hypertensio n [facility] 2024-12-22 09:12 Acute upper respiratory infecti on, unspecified [facility] 2024-12-22 09:12 Chronic obstructive pulmonary disease with (acute) exacerbation [facility]24-12-22 09:12 Mild intermittent asthma with ( acute) exacerbation [facility] 2024-12-22 09:12 Moderate persistent asthma with (acute) exacerbation [facility]24-12-22 09:12 Unspecified asthma with (acute) exacerbation [facility] 2024-12-22 09:12 Acute respiratory failure with hypoxia [facility] 2024-12-22 09:12 Acute and chronic respiratory f ailure with hypoxia [facility] 2024-12-22 09:12 [facility] lower limb [facility] 09:12 Pain in right shoulder [facility] 2024-12-22 09:12 Pain in left ankle and joints o f left foot [facility] 2024-12-22 09:12 Acute kidney failure, unspecifi ed [facility] 2024-12-22 09:12 Acute cystitis without hematuri a [facility] 2024-12-22 09:12 Urinary tract infection, site n ot specified [facility] 2024-12-22 09:12 Cough, unspecified [facility] 2024-12-22 09:12 Dyspnea, unspecified [facility] 2024-12-22 09:12 [facility]ness of breath [facility]24-12-22 09:12 Hypoxemia [facility] 2024-12-22 09:12 Disorientation, unspecified i Pending [facility] to [facility] 2024-12-22 09:12 Fever, unspecified [facility] 2024-12-22 09:12 Other fatigue [facility] 2024-12-22 09:12 Strain of unspecifie d muscle, fascia and tendon at shoulder and upper arm level, right arm, initial encounter [facility] 2024-12-22 09:12 Fracture of unspecif ied metatarsal bone(s), unspecified foot, initial encounter for closed fracture [facility] 2024-12-22 09:12 Unspecified injury of left foot , initial encounter [facility] 2024-12-22 09:12 Poisoning by fentany l or fentanyl analogs, accidental (unintentional), [facility] 2024-12-22 09:12 Toxic effect of unsp ecified spider venom, accidental (unintentional), initial encounter [facility] 2024-12-22 09:12 Procedure and treatm ent not carried out due to patient leaving prior to being seen by health care provider [facility] 2024-12-22 09:12 Encounter for issue of repeat p rescription [facility] 2024-12-22 09:12 Dependence on wheelchair [facility] 2024-12-22 10:26 Type 2 diabetes mellitus withou t complications [facility] 2024-12-22 10:41 Sepsis, unspecified organism [facility] 2024-12-22 10:41 Type 2 diabetes shelia itus with other specified complication [facility] 2024-12-22 10:41 Type 2 diabetes mellitus withou t complications [facility] 2024-12-22 10:41 Bipolar II disorder [facility] 2024-12-22 10:41 Major depressive dis order, single episode, unspecified [facility] 2024-12-22 10:41 Generalized anxiety disorder [facility] 2024-12-22 10:41 Encephalopathy, unspecified [facility] [employer] 2024-12-22 10:41 Essential (primary) hypertensio n [facility]24-[facility]22 10:41 Acute upper respiratory infecti on, unspecified [facility] 2024-12-22 10:41 Chronic obstructive pulmonary disease with (acute) exacerbation [facility]24-12-22 10:41 Mild intermittent asthma with ( acute) exacerbation [facility]24-12-22 10:41 Moderate persistent asthma with (acute) exacerbation [facility] 2024-12-22 10:41 Unspecified asthma with (acute) exacerbation [facility] 2024-12-22 10:41 Acute respiratory failure with hypoxia [facility] 2024-12-22 10:41 Acute and chronic respiratory f ailure with hypoxia [facility] 2024-12-22 10:41 [facility]ulitis of left lower limb [facility] 10:41 Pain in right shoulder [facility] 2024-12-22 10:41 Pain in left ankle and joints o f left foot [facility] 2024-12-22 10:41 Acute kidney failure, unspecifi ed [facility] 2024-12-22 10:41 Acute cystitis without hematuri a [employer] 2024-12-22 10:41 Urinary tract infection, site n ot specified [facility] 2024-12-22 10:41 Cough, unspecified [employer] [facility] 2024-12-22 10:41 Dyspnea, unspecified [employer] [facility] 2024-12-22 10:41 Shortness of breath [employer] [facility] 2024-12-22 10:41 Hypoxemia [facility] 2024-12-22 10:41 Disorientation, unspecified [facility] [employer] [facility] 2024-12-22 10:41 Fever, unspecified [employer] [facility] 2024-12-22 10:41 Other fatigue [facility] 2024-12-22 10:41 Strain of unspecifie d muscle, fascia and tendon at shoulder and upper arm level, right arm, initial encounter [facility] 2024-12[facility]22 10:41 Fracture of unspecif ied metatarsal bone(s), unspecified foot, initial encounter for closed fracture [facility] 2024-12[facility]22 10:41 Unspecified injury of left foot , initial encounter [facility] 2024-12-22 10:41 Poisoning by fentany l or fentanyl analogs, accidental (unintentional), [facility] 2024-12-22 10:41 Toxic effect of unsp ecified spider venom, accidental (unintentional), [facility] 2024-12-22 10:41 Procedure and treatm ent not carried out due to patient leaving prior to being seen by health care provider [facility]24-[facility]22 10:41 Encounter for issue of repeat p rescription [facility] 2024-12-22 10:41 Dependence on wheelchair [facility] 2024-12-27 09:58 Pain in left ankle and joints o f left foot [facility] 2024-12-27 09:58 Unspecified fracture of shaft of humerus, unspecified arm, initial encounter for closed fracture [facility] 2024-12-28 00:03 Pain in left ankle and joints o f left foot [facility] 2024-12-28 00:03 Unspecified fracture of shaft of humerus, unspecified arm, initial encounter for closed fracture [facility] 2024-12-28 11:18 Other fracture of up per and lower end of left fibula, initial encounter for closed fracture [employer] 2024-12-29 09:26 Other fracture of le ft lower leg, initial encounter for closed fracture [facility] 2024-12[facility]29 09:26 Asymptomatic menopausal state [facility] 09:54 Pain in left ankle and joints o f left foot [facility] 2025-01-03 09:54 Unspecified fracture of shaft of humerus, right arm, initial encounter for closed fracture [facility] 2025-01-05 12:58 Other fracture of up per and lower end of left fibula, initial encounter for closed fracture [facility] 2025-01-06 00:03 Other fracture of up per and lower end of left fibula, initial encounter [facility] closed fracture [facility] 2025-01-07 10:39 Encounter for observ ation for other suspected diseases and conditions ruled out [facility] 2025-01-10 11:01 Unspecified urinary incontinenc e [facility] 2025-01-11 09:14 Cellulitis of left lower limb [facility] [employer] 2025-01-11 09:14 Acute cystitis without hematuri a [facility] 2025-01-11 09:14 Torus fracture of lo wer end of left fibula, initial encounter for closed fracture [facility] 2025-01-13 11:36 Other fracture of up per and lower end of left fibula, initial encounter for closed fracture [facility] 2025-01-13 12:23 Other fracture of up per and lower end of left fibula, initial encounter for closed fracture [facility] 2025-01-14 09:18 Other fracture of le ft lower leg, initial encounter for closed fracture [facility] 2025-01-14 09:18 Asymptomatic menopausal state [employer] 2025-01-14 09:21 Other fracture of le ft lower leg, initial encounter for closed fracture [facility] 2025-01-14 09:21 Asymptomatic menopausal state [employer] 2025-01-16 09:00 Unspecified urinary incontinenc e [facility] 2025-01-16 09:00 Other fracture of le ft lower leg, initial encounter for closed fracture [facility] 2025-01-16 09:00 Asymptomatic menopausal state [employer] 2025-01-16 11:58 Urinary tract infection, site n ot specified [facility] 2025-01-16 12:42 Urinary tract infection, site n ot specified [facility] Results/Labs test date facility value unit notes Result panel 1 CLINDAMYCIN 2024-12-01 14:21 [facility] (missing) (missing) (missing) CUL,WOUND (AEROBIC) 2024-12-01 14:21 [facility] (missing) (missing) (missing) PENICILLIN-G 2024-12-01 14:21 [facility] >=0.5 (missing) (missing) ERYTHROMYCIN 2024-12-01 14:21 [facility] >=8 (missing) (missing) TIGECYCLINE 2024-12-01 14:21 [...] Health <=10 (missing) (missing) LEVOFLOXACIN 2024-12-01 14:21 [facility] 0.25 (missing) (missing) OXACILLIN OSITO 2024-12-01 14:21 [facility] 0.5 (missing) (missing) QUINUPRISTIN/LADARIUS FOPRISTIN 2024-12-01 14:21 [facility] 0.5 (missing) (missing) LINEZOLID 2024-12-01 14:21 [facility] 2 (missing) (missing) CUL,WOUND (AEROBIC) 2024-12-01 14:21 [facility] 22+ GROWTH (missing) (missing) CUL,WOUND (AEROBIC) 2024-12-01 14:21 [facility] CC.6COLONY COUNT (missing) (missing) CUL,WOUND (AEROBIC) 2024-12-01 14:21 [facility] FEW WBC'S (missing) (missing) CUL,WOUND (AEROBIC) 2024-12-01 14:21 [facility] GRAM STAIN: (missing) (missing) CUL,WOUND (AEROBIC) 2024-12-01 14:21 [facility] IDMICID/OSITO COM* (missing) (missing) CUL,WOUND (AEROBIC) 2024-12-01 14:21 [facility] RARE GRAM POSITIVE COCCI (missing) (missing) CUL,WOUND (AEROBIC) 2024-12-01 14:21 [facility] SENSISENSITIVITIES TO FOLLOW (missing) (missing) O:STAAUR 2024-12-01 14:21 [facility] STAAURSTAPHYLOCOCCUS AUREUSSTAPHYLOCOCCUS AUREUS (missing) (missing) Result panel 2 LIPASE 2024-12-04 09:22 [facility] < 10 u/l As of September 2022 testing method has changed, this may include reference ranges. NUCLEATED RED BLOOD CELLS AUTO 2024-12-04 09:22 [facility] 0.0 /100wbc (missing) BASOPHILS # (AUTO) 2024-12-04 09:22 [facility] 0.0 10 3/ul (missing) NRBC ABSOLUTE COUNT (AUTO) 2024-12-04 09:22 [facility] 0.00 x10 3/ul (missing) EOSINOPHILS # (AUTO) 2024-12-04 09:22 [facility] 0.1 10 3/ul (missing) BILIRUBIN,TOTAL 2024-12-04 09:22 [facility] 0.5 mg /dl As of September 2022 testing method has changed, this may include reference ranges. ALBUMIN/GLOBULIN RATIO 2024-12-04 09:22 [facility] 1.0 (missing) (missing) MONOCYTES # (AUTO) 2024-12-04 09:22 [facility] 1.2 10 3/ul (missing) CREATININE 2024-12-04 09:22 [facility] 1.3 mg/dl As of September 2022 testing method has changed, this may include reference ranges. LYMPHOCYTES # (AUTO) 2024-12-04 09:22 [facility] 1.5 10 3/ul (missing) HGB - HEMOGLOBIN 2024-12-04 09:22 [facility] 10.8 g /dl (missing) PLT - PLATELET COUNT 2024-12-04 09:22 [facility] 118 10 3/ul (missing) NEUTROPHILS # (AUTO) 2024-12-04 09:22 [facility] 12.0 10 3/ul (missing) ALT ALANINE AMINOTRANSFERASE 2024-12-04 09:22 [facility] 13 iu/l As of September 2022 testing method has changed, this may include reference ranges. SODIUM 2024-12-04 09:22 [facility] 138 mmol/l (missing) RED CELL DISTRIBUTION WIDTH 2024-12-04 09:22 [facility] 14.9 % (missing) WHITE BLOOD COUNT 2024-12-04 09:22 [facility] 15.1 x10 3/ul (missing) AST ASPARTATE AMINOTRANSFERASE 2024-12-04: [facility] 19 iu/l As of September 2022 testing method has changed, this may include reference ranges. BUN - BLOOD UREA NITROGEN 2024-12-04:22 [employer] [facility] 22 mg/dl As of Sep testing method has changed, this may include reference ranges. ANION GAP 2024-12-04:22 [facility] 3.0 (missing ) (missing) ALBUMIN 2024-12-04 09: [facility] 3.2 g/dl As of September 2022 testing method has changed, this may include reference ranges. GLOBULIN 2024-12-04 09:22 [facility] 3.3 g/dl (missing) RED BLOOD COUNT 2024-12-04: [facility] 3.60 10 6/ul (missing) MEAN CORPUSCULAR HEMOGLOBIN 2024-12-04 09:22 [facility] 30.0 pg (missing) MEAN CORPUSCULAR HGB CONC 2024-12-04 09:22 [facility] 30.7 g/dl (missing) HCT - HEMATOCRIT 2024-12-04:22 [facility] 35.2 % (missing) CARBON DIOXIDE - CO2 2024-12-04: [facility] 36 mmol/l As of September 2022 testing method has changed, this may include reference ranges. POTASSIUM 2024-12-04:22 [facility] 4.4 mmol/l As of September 2022 testing method has changed, this may include reference ranges. GFR - MDRD 2024-12-04 09:22 [facility] 42 (zenon salcedo) The IDMS-traceable MDRD Study Equation has been validated extensively in and populations between the ages of 18 and 70 with impaired kidney function (eGFR < 60 mL/min/1.73m2) and has shown good performance for patients with all common causes of kidney disease. Although this equation has not been validated for patients older than 70, an MDRD-derived eGFR may still be a useful tool for providers caring for patients older than 70. References: http://www.nkdep. nih.gov/lab-evalu ation/gfr/creatin ine-stand ardization, last updated May 2011. TOTAL PROTEIN 2024-12-04 09:22 [facility] 6.5 g/dl As of September 2022 testing method has changed, this may include reference ranges. ALKALINE PHOSPHATASE 2024-12-04 09:22 [facility] 60 iu/l As of September 2022 testing method has changed, this may include reference ranges. CALCIUM 2024-12-04 09:22 [facility] 8.9 mg/dl As of September 2022 testing method has changed, this may include reference ranges. GLUCOSE 2024-12-04 09:22 [facility] 88 mg/dl As of September 2022 testing method has changed, this may include reference ranges. MEAN PLATELET VOLUME 2024-12-04 09:22 [facility] 9.4 fl (missing) MEAN CORPUSCULAR VOLUME 2024-12-04 09:22 [facility] 97.8 fl (missing) CHLORIDE 2024-12-04 09:22 [facility] 99 mmol/l As of September 2022 testing method has changed, this may include reference ranges. Result panel 3 UROBILINOGEN,URINE 2024-12-04 10:45 [facility] 0.2 (NORMAL) e.u./dl (missing) SPECIFIC GRAVITY,URINE 2024-12-04 10:45 [facility] 1.020 (missing) (missing) PROTEIN,URINE 2024-12-04 10:45 [facility] 30 mg/dl (missing) WBC,URINE 2024-12-04 10:45 [facility] 6-10 /hpf (missing) PH,URINE 2024-12-04 10:45 [facility] 6.5 ph (missing) CLARITY,URINE 2024-12-04 10:45 [facility] CLEAR (missing) (missing) CUL, URINE 2024-12-04 10:45 [facility] CXPCULTURE IN PROGRESS. RESULTS TO FOLLOW. (missing) (missing) UR CULTURE IF IND 2024-12-04 10:45 [facility] INDICATED (missing) (missing) URINE MICROSCOPIC INDICATED? 2024-12-04 10:45 [facility] INDICATED (missing) (missing) NITRITE,URINE 2024-12-04 10:45 [facility] NEGATIVE (missing) (missing) OCCULT BLOOD,URINE 2024-12-04 10:45 [facility] NEGATIVE (missing) (missing) BILIRUBIN,URINE 2024-12-04 10:45 [facility] NEGATIVE (missing) Bilirubin can be influenced by color interference. Please correlate positive results with clinical presentation GLUCOSE, URINE (UA) 2024-12-04 10:45 [facility] NEGATIVE mg/dl (missing) CUL, URINE 2024-12-04 10:45 [facility] NGNo growth (missing) (missing) BACTERIA,URINE 2024-12-04 10:45 [facility] None Seen /hpf (missing) RBC,URINE 2024-12-04 10:45 [facility] None Seen /hpf (missing) SQUAMOUS EPITHELIAL CELL,UR 2024-12-04 10:45 [facility] RARE Squamous (missing) (missing) LEUKOCYTE ESTERASE, URINE 2024-12-04 10:45 [facility] TRACE (missing) (missing) KETONES,URINE (UA) 2024-12-04 10:45 [facility] TRACE mg/dl (missing) COLOR,URINE 2024-12-04 10:45 [facility] YELLOW (missing) URINE CATHETERIZED Result panel 4 SALICYLATE 2024-12-10 15:28 [facility] < 1.5 mg/dl Salicyalte Theraputic Range <30mg/dL As of September 2022 testing method has changed, this may include reference ranges. ETOH - ETHANOL 2024-12-10 15:28 [facility] < 10.0 mg/dl Blood Alcohol Levels Level Sporadic Drinkers Chronic drinkers == 100 mg/dL Legally intoxicated* Minimal signs 200-250 mg/dL Alertness lost, Effort needed to becoming lethargic maintain emotional and motor control 300-350 mg/dL Stupor to coma Drowsy and slow >500 mg/dL Possible Coma *The legal definition of intoxication varies. This assy is for medical decision making only. As of September 2022 testing method has changed, this may include reference ranges. NUCLEATED RED BLOOD CELLS AUTO 2024-12-10 15:28 [facility] 0.0 /100wbc (missing) NRBC ABSOLUTE COUNT (AUTO) 2024-12-10 15:28 [facility] 0.00 x10 3/ul (missing) BASOPHILS # (AUTO) 2024-12-10 15:28 [facility] 0.1 10 3/ul (missing) BILIRUBIN,TOTAL 2024-12-10 15:28 [facility] 0.2 mg/dl As of September 2022 testing method has changed, this may include reference ranges. EOSINOPHILS # (AUTO) 2024-12-10 15:28 [facility] 0.3 10 3/ul (missing) ALBUMIN/GLOBULIN RATIO 2024-12-10 15:28 [facility] 1.0 (missing) (missing) MONOCYTES # (AUTO) 2024-12-10 15:28 [facility] 1.1 10 3/ul (missing) CREATININE 2024-12-10 15:28 [facility] 1.6 mg/dl As of September 2022 testing method has changed, this may include reference ranges. HGB - HEMOGLOBIN 2024-12-10 15:28 [facility] 10.5 g/dl (missing) WHITE BLOOD COUNT 2024-12-10 15:28 [facility] 10.8 x10 3/ul (missing) MEAN CORPUSCULAR VOLUME 2024-12-10 15:28 [facility] 100.6 fl (missing) GLUCOSE 2024-12-10 15:28 [facility] 119 mg/dl As of September 2022 testing method has changed, this may include reference ranges. SODIUM 2024-12-10 15:28 [facility] 136 mmol/l (missing) AST ASPARTATE AMINOTRANSFERASE 2024-12-10 15:28 [facility] 14 iu/l As of September 2022 testing method has changed, this may include reference ranges. RED CELL DISTRIBUTION WIDTH 2024-12-10 15:28 [facility] 15.1 % (missing) LIPASE 2024-12-10 15:28 [facility] 17 u/l As of September 2022 testing method has changed, this may include reference ranges. PLT - PLATELET COUNT 2024-12-10 15:28 [facility] 187 10 3/ul (missing) MAGNESIUM 2024-12-10 15:28 [facility] 2.0 mg/dl As of September 2022 testing method has changed, this may include reference ranges. LYMPHOCYTES # (AUTO) 2024-12-10 15:28 [facility] 2.1 10 3/ul (missing) MEAN CORPUSCULAR HGB CONC 2024-12-10 15:28 [facility] 29.7 g/dl (missing) MEAN CORPUSCULAR HEMOGLOBIN 2024-12-10 15:28 [facility] 29.8 pg (missing) ANION GAP 2024-12-10 15:28 [facility] 3.0 (missing) (missing) RED BLOOD COUNT 2024-12-10 15:28 [facility] 3.52 10 6/ul (missing) GLOBULIN 2024-12-10 15:28 [facility] 3.6 g/dl (missing) ACETAMINOPHEN 2024-12-10 15:28 [facility] 3.6 ug/ml Acetaminophen Therapeutic concentration 10-30 ug/mLHepatotoxicity concentrations - >150 ug/mL at 4hr after ingestion >75 ug/mL at 8hr after ingestion >40 ug/mL at 12hr after ingestion As of September 2022 testing method has changed, this may include reference ranges. ALBUMIN 2024-12-10 15:28 [facility] 3.7 g/dl As of September 2022 testing method has changed, this may include reference ranges. BUN - BLOOD UREA NITROGEN 2024-12-10 15:28 [facility] 32 mg/dl As of September 2022 testing method has changed, this may include reference ranges. GFR - MDRD 2024-12-10 15:28 [facility] 33 (missing) The IDMS-traceable MDRD Study Equation has been validated extensively in and populations between the ages of 18 and 70 with impaired kidney function (eGFR < 60 mL/min/1.73m2) and has shown good performance for patients with all common causes of kidney disease. Although this equation has not been validated for patients older than 70, an MDRD-derived eGFR may still be a useful tool for providers caring for patients older than 70. References: http://www.nkdep.ni .gov/lab-evaluatio n/gfr/creatinine-st and ardization, last updated May 2011. HCT - HEMATOCRIT 2024-12-10 15:28 [facility] 35.4 % (missing) CARBON DIOXIDE - CO2 2024-12-10 15:28 [facility] 36 mmol/l As of September 2022 testing method has changed, this may include reference ranges. POTASSIUM 2024-12-10 15:28 [facility] 4.9 mmol/l As of September 2022 testing method has changed, this may include reference ranges. VALPROIC ACID (DEPAKOTE) 2024-12-10 15:28 [facility] 42.5 ug/ml Valproic Acid Therapeutic Range Therapeutic 71756 ug/mL Toxicity may occur at levels of 146307 ug/mL As of September 2022 testing method has changed, this may include reference ranges. ALKALINE PHOSPHATASE 2024-12-10 15:28 [facility] 58 iu/l As of September 2022 testing method has changed, this may include reference ranges. THYROID STIMULATING HORMONE 2024-12-10 15:28 [facility] 6.35 uiu/ml (missing) NEUTROPHILS # (AUTO) 2024-12-10 15:28 [facility] 7.0 10 3/ul (missing) TOTAL PROTEIN 2024-12-10 15:28 [facility] 7.3 g/dl As of September 2022 testing method has changed, this may include reference ranges. ALT ALANINE AMINOTRANSFERASE 2024-12-10 15:28 [facility] 8 iu/l As of September 2022 testing method has changed, this may include reference ranges. MEAN PLATELET VOLUME 2024-12-10 15:28 [facility] 9.4 fl (missing) CALCIUM 2024-12-10 15:28 [facility] 9.6 mg/dl As of September 2022 testing method has changed, this may include reference ranges. CK- CREATINE KINASE 2024-12-10 15:28 [facility] 90 iu/l As of September 2022 testing method has changed, this may include reference ranges. CHLORIDE 2024-12-10 15:28 [facility] 97 mmol/l As of September 2022 testing method has changed, this may include reference ranges. Result panel 5 WBC,URINE 2024-12-10 17[facility]) RBC,URINE 2024-12-10 17:09 [facility] 0-5 /hpf (missing) UROBILINOGEN,URINE 2024-12-10 17:09 [facility] 0.2 (NORMAL) e.u./dl (missing) SPECIFIC GRAVITY,URINE 2024-12-10 17:09 [facility] 1.020 (missin g) (missing) PH,URINE 2024-12-10 17:09 [facility] 6.0 ph (missing) CLARITY,URINE 2024-12-10 17:09 [facility] CLEAR (missin g) (missing) MUDS CUTOFF CONCENTRATIONS 2024-12-10 17:09 [facility] CUTOFF CONC BELOW: (missin g) [facility] uses the PROFILE-V [employer] Drugs of Abuse Test System. It detects drug classes at the following cutoff concentrations: AMP Amphetamine (d-Amphetamine) 500 ng/mL BAR Barbiturates (Butalbital) 200 ng/mL BZO Benzodiazepines (Nordiazepam) 150 ng/mL BUP Buprenorphine (Buprenorphine) 10 ng/mL BARRY Cocaine (Benzoylecgonine) 150 ng/mL MAMP Methamphetamine (d-Methamphetamine ) 500 ng/mL MTD Methadone (Methadone) 200 ng/mL OPI Opiates (Morphine) 100 ng/mL OXY Oxycodone (Oxycodone) 100 ng/mL PCP Phencyclidine (Phencyclidine) 25 ng/mL BUP Buprenorphine (Buprenorphine) 10 ng/mL THC Cannabinoids (80-nkk-3-carboxy- 9-THC) 50 ng/mL TCA Tricyclic Antidepressants (Desipramine) 300 ng/mL All drug screen results are unconfirmed. Results are to be used for medical (i.e. treatment) purposes only. Unconfirmed screening results must not be used for non-medical purposes (e.g., employment testing, legal testing). CUL, URINE 2024-12-10 17:09 [facility] CXPCULTURE IN PROGRESS. RESULTS TO FOLLOW. (missin g) (missing) SQUAMOUS EPITHELIAL CELL,UR 2024-12-10 17:09 [facility] FEW Squamous (missin g) (missing) EPITHELIAL CELLS,UR 2024-12-10 17:09 [facility] FEW Transitional /hpf (missing) UR CULTURE IF IND 2024-12-10 17:09 [facility] INDICATED (missin g) (missing) URINE MICROSCOPIC INDICATED? 2024-12-10 17:09 [facility] INDICATED (missin g) (missing) AMPHETAMINE SCREEN,URINE 2024-12-10 17:09 [facility] NEGATIVE (missin g) (missing) BARBITURATE SCREEN,UR 2024-12-10 17:09 [facility] NEGATIVE (missin g) (missing) BUPRENORPHINE SCREEN, URINE 2024-12-10 17:09 [facility] NEGATIVE (missin g) (missing) COCAINE SCREEN URINE 2024-12-10 17:09 [facility] NEGATIVE (missin g) (missing) METHADONE SCREEN, URINE 2024-12-10 17:09 [facility] NEGATIVE (missin g) (missing) METHAMPHETAMINES SCREEN, URINE 2024-12-10 17:09 [facility] NEGATIVE (missin g) (missing) NITRITE,URINE 2024-12-10 17:09 [facility] NEGATIVE (missin g) (missing) OPIATE SCREEN, URINE 2024-12-10 17:09 [facility] NEGATIVE (missin g) (missing) PHENCYCLIDINE SCREEN, URINE 2024-12-10 17:09 [facility] NEGATIVE (missin g) (missing) BILIRUBIN,URINE 2024-12-10 17:09 [facility] NEGATIVE (missin g) Bilirubin can be influenced by color interference. Please correlate positive results with clinical presentation GLUCOSE, URINE (UA) 2024-12-10 17:09 [facility] NEGATIVE mg/dl (missing) KETONES,URINE (UA) 2024-12-10 17:09 [facility] NEGATIVE mg/dl (missing) CUL, URINE 2024-12-10 17:09 [facility] NGNo growth (missin g) (missing) FENTANYL SCREEN, URINE 2024-12-10 17:09 [facility] Negative (missin g) [employer] uses LZI Fentanyl (Q) Enzyme Immunoassay. RESULT INTERPRETATION: This assay qualitatively detects norfentanyl in urine which is the major metabolite of fentanyl. A result greater than or equal to 5 ng/mL is considered presumptively positive for fentanyl exposure. CLINICAL SIGNIFICANCE: Presumptive positive results indicate norfentanyl concentrations above the assay cutoff. Due to possible cross-reactivity and potential interference, confirmatory testing by a definitive method (e.g., LC-MS/MS) is recommended for positive or unexpected findings. LIMITATIONS: This test is intended for qualitative screening and is unconfirmed. Concentrations below 5 ng/mL may not be reliably detected. False positives and false negatives are possible. Results are to be used for medical purposes only and can't be used for non-medical or legal purposes. BENZODIAZEPINES SCREEN, URINE 2024-12-10 17:09 [facility] POSITIVE (missin g) (missing) OXYCODONE SCREEN, URINE 2024-12-10 17:09 [facility] POSITIVE (missin g) (missing) THC CANNABINOID SCREEN, URINE 2024-12-10 17:09 [facility] POSITIVE (missin g) (missing) TRICYCLIC ANTIDEPRESSANT,URINE 2024-12-10 17:09 [facility] POSITIVE (missin g) (missing) EPITHELIAL CELLS,UR 2024-12-10 17:09 [facility] RARE Renal Tubular /hpf (missing) BACTERIA,URINE 2024-12-10 17:09 [facility] Rare /hpf (missing) LEUKOCYTE ESTERASE, URINE 2024-12-10 17:09 [facility] TRACE (missin g) (missing) OCCULT BLOOD,URINE 2024-12-10 17:09 [facility] TRACE (missin g) (missing) PROTEIN,URINE 2024-12-10 17:09 [facility] TRACE mg/dl (missing) COLOR,URINE 2024-12-10 17:09 [facility] YELLOW (in g) URINE CATHETERIZED Result panel 6 VBG PO2 2024-12-10 17:56 [facility] 177.4 mmhg (missing) VBG HCO3 2024-12-10 17:56 [facility] 32.6 mmol/l (missing) VBG TOTAL CO2 2024-12-10 17:56 [facility] 34.2 mmol /l (missing) V[facility] PCO2 2024-12-10 17:56 [facility] 51.8 mmhg (missing) V[facility] PH 2024-12-10 17:56 [facility] 7.403 (missing ) (missing) [facility] BASE EXCESS 2024-12-10 17:56 [facility] 7.7 mm ol/l (missing) [facility] OXYGEN SATURATION 2024-12-10 17:56 [facility] 99.0 % (missing) Result panel 7 CREATININE 2024-12-11 08:55 [facility] 1.2 mg/dl As of September 2022 testing method has changed, this may include reference ranges. MEAN CORPUSCULAR VOLUME 2024-12-11 08:55 [facility] 100.3 fl (missing) CHLORIDE 2024-12-11 08:55 [facility] 102 mmol/l As of September 2022 testing method has changed, this may include reference ranges. SODIUM 2024-12-11 08:55 [facility] 139 mmol/l (missing) RED CELL DISTRIBUTION WIDTH 2024-12-11 08:55 [facility] 14.7 % (mi ssing) PLT - PLATELET COUNT 2024-12-11 08:55 [facility] 177 10 3/ul (missing) BUN - BLOOD UREA NITROGEN 2024-12-11 08:55 [facility] 22 mg/dl As of Sep testing method has changed, this may include reference ranges. MEAN CORPUSCULAR HGB CONC 2024-12-11 08:55 [facility] 29.1 g/dl (missing) MEAN CORPUSCULAR HEMOGLOBIN 2024-12-11 08:55 [facility] 29.2 pg (missing) ANION GAP 2024-12-11 08:55 [facility] 3.0 (missing ) (missing) RED BLOOD COUNT 2024-12-11 08:55 [facility] 3.39 10 6/ul (missing) CARBON DIOXIDE - CO2 2024-12-11 08:55 [facility] 34 mmol/l As of September 2022 testing method has changed, this may include reference ranges. HCT - HEMATOCRIT 2024-12-11 08:55 [facility] 34.0 % (missing) POTASSIUM 2024-12-11 08:55 [facility] 4.8 mmol/l As of September 2022 testing method has changed, this may include reference ranges. GFR - MDRD 2024-12-11 08:55 [facility] 46 (in g) The IDMS-traceable MDRD Study Equation has been validated extensively in and populations between the ages of 18 and 70 with impaired kidney function (eGFR < 60 mL/min/1.73m2) and has shown good performance for patients with all common causes of kidney disease. Although this equation has not been validated for patients older than 70, an MDRD-derived eGFR may still be a useful tool for providers caring for patients older than 70. References: http://www.nkdep.n ih.gov/lab-evaluat ion/gfr/creatinine -stand ardization, last updated May 2011. WHITE BLOOD COUNT 2024-12-11 08:55 [facility] 8.7 x10 3/ul (missing) MEAN PLATELET VOLUME 2024-12-11 08:55 [facility] 8.9 fl (missing) CALCIUM 2024-12-11 08:55 [facility] 8.9 mg/dl As of September 2022 testing method has changed, this may include reference ranges. GLUCOSE 2024-12-11 08:55 [facility] 85 mg/dl As of September 2022 testing method has changed, this may include reference ranges. HGB - HEMOGLOBIN 2024-12-11 08:55 [facility] 9.9 g /dl (missing) Result panel 8 NUCLEATED RED BLOOD CELLS AUTO 2025-01-16 09:17 [facility] 0.0 /100wbc (missing) BASOPHILS # (AUTO) 2025-01-16 09:17 [facility] 0.0 10 3/ul (missing) EOSINOPHILS # (AUTO) 2025-01-16 09:17 [facility] 0.0 10 3/ul (missing) NRBC ABSOLUTE COUNT (AUTO) 2025-01-16 09:17 [facility] 0.00 x10 3/ul (missing) BILIRUBIN,TOTAL 2025-01-16 09:17 [facility] 0.5 mg/dl As of September 2022 testing method has changed, this may include reference ranges. ALBUMIN/GLOBULIN RATIO 2025-01-16 09:17 [facility] 0.9 (missing) (missing) LYMPHOCYTES # (AUTO) 2025-01-16 09:17 [facility] 1.1 10 3/ul (missing) CREATININE 2025-01-16 09:17 [facility] 1.3 mg/dl As of September 2022 testing method has changed, this may include reference ranges. MONOCYTES # (AUTO) 2025-01-16 09:17 [facility] 1.6 10 3/ul (missing) MAGNESIUM 2025-01-16 09:17 [facility] 1.8 mg/dl As of September 2022 testing method has changed, this may include reference ranges. HGB - HEMOGLOBIN 2025-01-16 09:17 [facility] 11.0 g/dl (missing) WHITE BLOOD COUNT 2025-01-16 09:17 [facility] 11.9 x10 3/ul (missing) GLUCOSE 2025-01-16 09:17 [facility] 114 mg/dl As of September 2022 testing method has changed, this may include reference ranges. AST ASPARTATE AMINOTRANSFERASE 2025-01-16 09:17 [facility] 12 iu/l As of September 2022 testing method has changed, this may include reference ranges. PLT - PLATELET COUNT 2025-01-16 09:17 [facility] 135 10 3/ul (missing) SODIUM 2025-01-16 09:17 [facility] 137 mmol/l (missing) RED CELL DISTRIBUTION WIDTH 2025-01-16 09:17 [facility] 14.9 % (missing) RBC MORPHOLOGY (MULTIPLE) 2025-01-16 09:17 [facility] 2+ ANISOCYTOSIS (missing) (missing) ANION GAP 2025-01-16 09:17 [facility] 2.0 (missing) (missing) MEAN CORPUSCULAR HEMOGLOBIN 2025-01-16 09:17 [facility] 29.3 pg (missing) ALBUMIN 2025-01-16 09:17 [facility] 3.6 g/dl As of September 2022 testing method has changed, this may include reference ranges. RED BLOOD COUNT 2025-01-16 09:17 [facility] 3.75 10 6/ul (missing) GLOBULIN 2025-01-16 09:17 [facility] 3.8 g/dl (missing) BUN - BLOOD UREA NITROGEN 2025-01-16 09: [facility] 30 mg/dl As of September 2022 testing method has changed, this may include reference ranges. MEAN CORPUSCULAR HGB CONC 2025-01-16 09:17 [facility] 30.0 g/dl (missing) CARBON DIOXIDE - CO2 2025-01-16:17 [facility] 36 mmol/l As of September 2022 testing method has changed, this may include reference ranges. HCT - HEMATOCRIT 2025-01-16 09:17 [facility] 36.7 % (missing) POTASSIUM 2025-01-16 09:17 [facility] 4.7 mmol/l As of September 2022 testing method has changed, this may include reference ranges. GFR - MDRD 2025-01-16 09:17 [facility] 42 (missing) The IDMS-traceable MDRD Study Equation has been validated extensively in and populations between the ages of 18 and 70 with impaired kidney function (eGFR < 60 mL/min/1.73m2) and has shown good performance for patients with all common causes of kidney disease. Although this equation has not been validated for patients older than 70, an MDRD-derived eGFR may still be a useful tool for providers caring for patients older than 70. References: http://www.nkd ep.nih.gov/lab -evaluation/gf r/creatinine-s tand ardization, last updated May 2011. ALKALINE PHOSPHATASE 2025-01-16 09:17 [facility] 51 iu/l As of September 2022 testing method has changed, this may include reference ranges. ALT ALANINE AMINOTRANSFERASE 2025-01-16 09:17 [facility] 6 iu/l As of September 2022 testing method has changed, this may include reference ranges. TOTAL PROTEIN 2025-01-16 09:17 [facility] 7.4 g/dl As of September 2022 testing method has changed, this may include reference ranges. NEUTROPHILS # (AUTO) 2025-01-16 09: [facility] 9.1 10 3/ul (missing) CALCIUM 2025-01-16 09:17 [facility] 9.1 mg/dl As of September 2022 testing method has changed, this may include reference ranges. MEAN PLATELET VOLUME 2025-01-16 09: [facility] 9.7 fl (missing) MEAN CORPUSCULAR VOLUME 2025-01-16: [facility] 97.9 fl (missing) CHLORIDE 2025-01-16:17 [facility] 99 mmol/l As of September 2022 testing method has changed, this may include reference ranges. SLIDE REVIEW? 2025-01-16 09:17 [facility] Indicated (missing) (missing) Result panel 9 WBC,URINE 2025-01-16 09:25 [facility] >25 /hpf (missing) UROBILINOGEN,URI NE 2025-01-16 09:25 [facility] 0.2 (NORMAL) e.u./dl (missing) SPECIFIC GRAVITY,URINE 2025-01-16 09:25 [facility] 1.010 (missing ) (missing) PROTEIN,URINE 2025-01-16 09:25 [facility] 100 mg/dl (missing) CUL, URINE 2025-01-16 09:25 [facility] 100>100,000 CFU/mL (missing ) (missing) RBC,URINE 2025-01-16 09:25 [facility] 6-10 /hpf (missing) PH,URINE 2025-01-16 09:25 [facility] 8.0 ph (missing) SQUAMOUS EPITHELIAL CELL,UR 2025-01-16 09:25 [facility] FEW Squamous (missing ) (missing) CUL, URINE 2025-01-16 09:25 [facility] GNRGRAM NEGATIVE PEARL TO BE FURTHER IDENTIFIED (missing ) (missing) CLARITY,URINE 2025-01-16 09:25 [facility] HAZY (missing ) (missing) CUL, URINE 2025-01-16 09:25 [facility] IDMIC.1ORG 1 ID/OSITO COM* (missing ) (missing) UR CULTURE IF IND 2025-01-16 09:25 [facility] INDICATED (missing ) (missing) URINE MICROSCOPIC INDICATED? 2025-01-16 09:25 [facility] INDICATED (missing ) (missing) LEUKOCYTE ESTERASE, URINE 2025-01-16 09:25 [facility] LARGE (missing ) (missing) OCCULT BLOOD,URINE 2025-01-16 09:25 [facility] MODERATE (missing ) (missing) BACTERIA,URINE 2025-01-16 09:25 [facility] Many /hpf (missing) BILIRUBIN,URINE 2025-01-16 09:25 [facility] NEGATIVE (missing ) Bilirubin can be influenced by color interference. Please correlate positive results with clinical presentation GLUCOSE, URINE (UA) 2025-01-16 09:25 [facility] NEGATIVE mg/dl (missing) KETONES,URINE (UA) 2025-01-16 09:25 [facility] NEGATIVE mg/dl (missing) CUL, URINE 2025-01-16 09:25 [facility] ORG.1PRELIM ORG ID* (missing ) (missing) NITRITE,URINE 2025-01-16 09:25 [facility] POSITIVE (missing ) (missing) CUL, URINE 2025-01-16 09:25 [facility] Pending (missing ) (missing) CUL, URINE 2025-01-16 09:25 [facility] UCC.1ORG 1 CC* (missing ) (missing) COLOR,URINE 2025-01-16 09:25 [facility] YELLOW (missing ) URINE CATHETERIZED CUL, URINE 2025-01-16 09:25 [facility] YIDENTIFICATION AND SENSITIVITIES TO FOLLOW (missing ) (missing) Result panel 10 SARS-CoV-2 -RESP PCR PANEL 2025-01-16 09:27 [facility] NOT DETECTED (missing) A negative test result for this test indicates that SARS-CoV-2 RNA was not present in the specimen above the limit of detection. Testing performed on the [employer] RP2.1 Panel, a multiplexed nucleic acid repiratory panel. Negative results do not preclude infection with SARS-CoV-2 virus and should not be the sole basis of a patient management decision. In some patients repeat testing at various time points may be necessary for virus detection. False-negative results may arise from improper sample collection, degradation of viral RNA during shipping or storage, the presence of PCR inhibitors, and/or mutation in the SARS-CoV-2 virus. INFLUENZA A- RESP PCR PANEL 2025-01-16: [facility] NOT DETECTED (missing) Influenza A including subtypes H1, H3, and H1-2009 not detected by the [employer] RP2.1 Panel, a multiplexed nucleic acid test intended for the simultaneous qualitative detection and differentiation of nucleic acids from multiple viral and bacterial respiratory organisms. B. PARAPERTUSSIS- RESP PCR FLYNN 2025-01-16 09:27 [facility] NOT DETECTED (missing) Negative results for this organism do not preclude infection with this organism and may require additional laboratory testing (e.g., bacterial and viral culture, immunofluorescence, and radiography) when evaluating a patient with possible respiratory tract infection. B. PERTUSSIS- RESP PCR PANEL 2025-01-16: [facility] NOT DETECTED (missing) Negative results for this organism do not preclude infection with this organism and may require additional laboratory testing (e.g., bacterial and viral culture, immunofluorescence, and radiography) when evaluating a patient with possible respiratory tract infection. C. PNEUMONIAE- RESP PCR PANEL 2025-01-16:27 [facility] NOT DETECTED (missing) Negative results for this organism do not preclude infection with this organism and may require additional laboratory testing (e.g., bacterial and viral culture, immunofluorescence, and radiography) when evaluating a patient with possible respiratory tract infection. M. PNEUMONIAE- RESP PCR PANEL 2025-01-16:27 [facility] NOT DETECTED (missing) Negative results for this organism do not preclude infection with this organism and may require additional laboratory testing (e.g., bacterial and viral culture, immunofluorescence, and radiography) when evaluating a patient with possible respiratory tract infection. CORONAVIRUS 229E-RESP PCR 2025-01-16:27 [facility] NOT DETECTED (missing) Negative results in the setting ofa respiratory illness may be due to infection with pathogens not detected by this test, or lower respiratory tract infection that may not be detected by nasopharyngeal specimen. CORONAVIRUS HKU1-RESP PCR 2025-01-16 09:27 [facility] NOT DETECTED (missing) Negative results in the setting ofa respiratory illness may be due to infection with pathogens not detected by this test, or lower respiratory tract infection that may not be detected by nasopharyngeal specimen. CORONAVIRUS [id number]-SNLP PCR 2025-01-16 09:27 [facility] NOT DETECTED (missing) Negative results in the setting ofa respiratory illness may be due to infection with pathogens not detected by this test, or lower respiratory tract infection that may not be detected by nasopharyngeal specimen. CORONAVIRUS [id number]-IAZC PCR 2025-01-16 09:27 [facility] NOT DETECTED (missing) Negative results in the setting ofa respiratory illness may be due to infection with pathogens not detected by this test, or lower respiratory tract infection that may not be detected by nasopharyngeal specimen. HUMAN METAPNEUMOVIRUS 2025-01-16 09:27 [facility] NOT DETECTED (missing) Negative results in the setting ofa respiratory illness may be due to infection with pathogens not detected by this test, or lower respiratory tract infection that may not be detected by nasopharyngeal specimen. INFLUENZA B - RESP PCR PANEL 2025-01-16 09:27 [facility] NOT DETECTED (missing) Negative results in the setting ofa respiratory illness may be due to infection with pathogens not detected by this test, or lower respiratory tract infection that may not be detected by nasopharyngeal specimen. PARAINFLUENZA VIRUS 1 2025-01-16 09:27 [facility] NOT DETECTED (missing) Negative results in the setting ofa respiratory illness may be due to infection with pathogens not detected by this test, or lower respiratory tract infection that may not be detected by nasopharyngeal specimen. PARAINFLUENZA VIRUS 2 2025-01-16 09:27 [facility] NOT DETECTED (missing) Negative results in the setting ofa respiratory illness may be due to infection with pathogens not detected by this test, or lower respiratory tract infection that may not be detected by nasopharyngeal specimen. PARAINFLUENZA VIRUS 3 2025-01-16 09:27 [facility] NOT DETECTED (missing) Negative results in the setting ofa respiratory illness may be due to infection with pathogens not detected by this test, or lower respiratory tract infection that may not be detected by nasopharyngeal specimen. PARAINFLUENZA VIRUS 4 2025-01-16 09:27 [facility] NOT DETECTED (missing) Negative results in the setting ofa respiratory illness may be due to infection with pathogens not detected by this test, or lower respiratory tract infection that may not be detected by nasopharyngeal specimen. RHINOVIRUS/ENTEROVI [place] 2025-01-16 09:27 [facility] NOT DETECTED (missing) Negative results in the setting ofa respiratory illness may be due to infection with pathogens not detected by this test, or lower respiratory tract infection that may not be detected by nasopharyngeal specimen. RSV- RESP PCR PANEL 2025-01-16 09:27 [facility] NOT DETECTED (missing) Negative results in the setting ofa respiratory illness may be due to infection with pathogens not detected by this test, or lower respiratory tract infection that may not be detected by nasopharyngeal specimen. ADENOVIRUS - RESP PCR PANEL 2025-01-16 09:27 [facility] NOT DETECTED (missing) YES Y NO NO NO NO YES NO Negative results in the setting ofa respiratory illness may be due to infection with pathogens not detected by this test, or lower respiratory tract infection that may not be detected by nasopharyngeal specimen. Social History date description facility
[2025-01-17 16:37] LABS: ALT ALANINE AMINOTRANSFERASE 13.0 IU/L (10-60); AST ASPARTATE AMINOTRANSFERASE 30.0 IU/L (10-42); BUN - BLOOD UREA NITROGEN 35.0 mg/dL (6-20); CARBON DIOXIDE - CO2 33.0 mmol/L (21-32); CREATININE 1.5 mg/dL (0.6-1.3); GFR - MDRD 36.0 (>89)
[2025-01-17] MEDS: MEROPENEM 1 GM in SODIUM CHLORIDE 0.9% MINIBAG 100 ML IV STA (16:46)
--- NOTE | 2025-01-17 16:52 | CT Report ---
PROCEDURE: CT Abdomen/Pelvis WO INDICATIONS: UTI, evaluate for obstruction TECHNIQUE: A CT scan of the abdomen and pelvis was performed without the use of intravenous contrast. Images were recorded and evaluated at appropriate window settings. Reformats: coronal and sagittal. For radiation dose reduction, the following was used: automated exposure control, adjustment of mA and/or kV according to patient size. COMPARISON: CT abdomen and pelvis with contrast dated 01/19/2022. FINDINGS: Image quality: Diagnostic. Lower chest: Unremarkable. Liver: No contour-deforming mass. Gallbladder: Surgically absent. Biliary tree: No intrahepatic or extrahepatic dilation, accounting for age. Spleen: No splenomegaly. Pancreas: No pancreatic ductal dilation. Adrenals: No adrenal nodule. Kidneys and ureters: Again noted is abnormal contours of both kidneys. The right kidney appears to be likely acutely inflamed. There is likely right pyelonephritis. There is no hydronephrosis. Stomach, bowel and peritoneum: No gastric or small bowel dilation. No abnormal wall thickening. No pathologic free fluid. Lymph nodes: No central or retroperitoneal adenopathy. Vessels: No infrarenal aortic aneurysm. Reproductive organs: Unremarkable. Bladder: Bladder not well visualized secondary to metallic artifact from right total hip arthroplasty. Pelvic lymph nodes: No adenopathy by size criteria. Bones: Osteoporotic compressions. A severe T12 compression has refractured compared to the previous, but is chronic. Interval chronic compressions of L1 and L4. 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 Other: No significant ventral or inguinal hernia. IMPRESSION: Findings on noncontrast imaging suggest possible recurrent right pyelonephritis. There is no obstructing stone or hydronephrosis. Abnormal contours of both kidneys are consistent with sequelae of previous insults. Likely severe osteoporosis with multiple compressions. Consider nonemergent bone densitometry. Reviewed by: Cole Mcallister MD on 01/17/2025 4:49 PM PDT Approved by: Cole Mcallister MD on 01/17/2025 4:49 PM PDT Station ID: [id number]
--- NOTE | 2025-01-17 17:15 | HISTORY & PHYSICAL EXAMINATION ---
Chief Complaint Chief Complaint Chief Complaint: Fever, malaise History of Present Illness Admitted From Admitted From:: ED History Obtained From Records Reviewed: [facility] History obtained from: EMR, Patient History of Present Illness HPI Comment/Other: Patient is a 54-year-old female who is residential at [facility] for self-care deficit. She has a history of COPD, on 2 L of O2 chronically, T2DM, PTSD, bipolar disorder, recurrent urinary tract infection, and an ankle fracture being managed nonsurgically. She was recently discharged in the hospital after being admitted for acute metabolic encephalopathy in the setting of polypharmacy with an attendant GARTH. She had a brief hospitalization, and was discharged on 12/11. She presented to the ED on 01/16 and was treated following a ground-level fall. Found to have a UTI, and was prescribed outpatient antibiotics with ceftriaxone here and Keflex at discharge. She does have a history of ESBL from March 2024. Pansensitive E. coli in May. Other infectious history includes a left lower extremity wound which she had cultured for MSSA. Seen back in the ED today after feeling worse despite antibiotics. Persistent leukocytosis and fever and in the ED. She has frankly septic vital signs. CT of her abdomen was completed and shows nonobstructive pyelonephritis. She is not exhibiting any renal colic. On my interview, she complains of back pain and knee pain bilaterally. States these are not chronic pains for her but they are bothering her right now. She is slumped down in bed. She is eating a sandwich and Jell-O. She frequently tries to speak well eating. Chokes occasionally given poor impulse control. States she has felt unwell for several weeks. Initially had enteric symptoms including nausea and diarrhea. These have since resolved, but now she feels febrile with malaise. Denies any dysuria. States her left ankle feels reasonably well since her fracture. Appeared comfortable on exam and then reported 10/10 pain Brief goals of care conversation. She remembers her conversation with Dr. Page and the early part of this year. She agrees that she still has nobody that she would identify as a POA. She has not picked anyone. She says her brother hates her. She says her nephew is an idiot. She has some friends at her assisted living facility, but would not defer to them for decisions. I encouraged her to continue thinking about this. She agrees she would want resuscitative efforts and life-sustaining treatments even if that meant staying in the hospital for an indefinite period of time. Meds/Allgy Home Medications Ambulatory Orders Medication Instructions Recorded Confirmed budesonide-formoterol HFA 80 1 inh inhalation BID #10. 2 grams 02/04/24 01/16/25 mcg-4.5 mcg/actuation aerosol inhaler (Breyna) ibuprofen 600 mg tablet (IBU) 600 mg PO Q6H PRN pain 0 04/12/24 01/16/25 quetiapine 300 mg tablet 300 mg PO HS 04/12/24 trazodone 300 mg tablet 300 mg PO HS 04/12/24 albuterol sulfate 90 mcg/actuation 1 - 2 puff inhalati on Q4HR PRN 05/06/24 01/16/25 aerosol inhaler (Ventolin HFA) Shortness Of Air/Wheezi ng #1 ea divalproex 250 mg tablet,delayed 250 mg PO BID #180 ta bs 08/30/24 01/16/25 release citalopram 20 mg tablet 20 mg PO DAILY #30 tabs 08/3001/16/25 acetaminophen 500 mg tablet 500 mg PO QID PRN fever or pain 12/04/24 01/16/25 (Tylenol Extra Strength) tizanidine 4 mg capsule 4 mg PO Q8H PRN muscle spast icity 12/09/24 01/16/25 Held on 12/11/24. #60 caps Instructions: Resume on 12/25/24. oxycodone-acetaminophen 5 mg-325 1 - 2 tab PO Q6H PRN pain 12/10/24 01/16/25 mg tablet (Percocet) diclofenac sodium 75 mg 75 mg PO BID 12/22/24 tablet,delayed release pregabalin 150 mg capsule 150 mg PO BID #60 caps 12/2601/16/25 levothyroxine 25 mcg tablet 25 mcg PO QDAY #90 tabs 01/16/25 (Euthyrox) cephalexin 500 mg capsule 500 mg PO BID #14 caps 01/16 Allergies Allergies Allergy/AdvReac Type Severity Reaction Status Date / Time No Known Drug Allergies Allergy Verified 01/16/25 09:00 [facility] Active Problems All Active Problems (Updated 01/17/25 @ 17:24 by Trino Ralph, DO) Sepsis (Acute) Pyelonephritis (Acute) Urinary tract infection (Acute) Ground-level fall (Acute) Urinary incontinence (Acute) Closed fracture of left distal fibula (Acute) Hyperlipidemia (Chronic) Marijuana dependence (Chronic) Tobacco dependence (Chronic) TSH elevation (Chronic) Fatty (change of) liver, not elsewhere classified (Chronic) Osteoporosis (Chronic) Stage 3a chronic kidney disease (CKD) (Chronic) Ankle fracture, left (Acute) Anemia (Acute) COPD (chronic obstructive pulmonary disease) (Chronic) Chronic respiratory failure (Chronic) Migraine with aura (Chronic 10/22/06) Psoriasis (Chronic 11/20/06) Right knee buckling (Chronic) Left shoulder strain (Chronic) Reactive depression (situational) (Chronic) Asthma, moderate persistent (Chronic 10/22/06) Essential (primary) hypertension (Chronic 07/13/07) Bipolar 2 disorder (Chronic) Wheelchair dependent (Chronic) Generalized anxiety disorder (Chronic) Chronic pain (Chronic) Hyperkalemia (Chronic) PTSD (post-traumatic stress disorder) (Chronic) Medical History Medical History History of compression fracture of spine T12 (see CT 01/19/2022) History of femur fracture History of fibula fracture History of humerus fracture left arm 09/17/2024 History of osteomyelitis Infected prosthetic hip left hip Metatarsal fracture Acute-subacute, oblique oriented 5th metatarsal shaft fracture. 06/02/2024 Surgical History Surgical History History of left hip replacement revision due to osteomyelitis, [place], 2016 Hx of appendectomy Hx of bilateral hip replacements Hx of cholecystectomy Hx of inguinal hernia repair right Hx of lithotripsy 2007 Family History Family History Mother Diabetes Heart failure Father Diabetes Heart failure Social History Social History (Updated 01/16/25 @ 09:07 by Prashant Ruiz, RN, BSN) Smoking Status: Current every day smoker Number of Years Smoked: 30 How many cigarettes a day do you smoke? (20 cigarettes=1 Pk): 20 Do you vape?: No Patient requests smoking cessation consult: No Initiate information on smoking cessation: No Living arrangement: Assisted living Marital Status: Single Living Condition: Alone Support Person: Yes Living Situation Details: Patient resides at [facility] Physical Activity: Chairfast Level: Dependent Physical - Functional Details: [employer] for transfers. Do you feel safe in your home environment?: Yes History of physical, verbal, emotional, or financial abuse?: No ETOH Use: None Substance Use: cannabis (any form) Substance Use Details: Pt is unable to respond to questions POLST Patient has POLST: No Exam Exam Vital Signs: Vital Signs x48h Temp Pulse Resp BP Pulse Ox O2 Flow Rate 01/17/25 17:31 39.4 C H 107 H 20 123/82 98 2 01/17/25 15:59 38.6 C H 114 H 18 116/71 89 L GEN: No acute distress. Eating a sandwich. Appears older than stated age HEENT: NC/AT, normal appearance of external ears and nose. Hearing baseline. Cardiac: Tachycardic with a regular rhythm. JVP difficult to assess given habitus, generally euvolemic. No murmurs or rubs appreciated. Pulm: No wheeze. No rhonchi or rales appreciated bilaterally. Normal effort on 2 L NC. Abdomen: Obese, soft, nontender. No guarding. Extremities: Moves all 4 extremities equally. Normal tone. Neuro: Resting tremor. Face symmetric. No focal neurologic deficits. Psych: Mood euthymic. Affect congruent. Poor insight Conclusion/Plan Problem List (1) Sepsis: Qualifiers: Sepsis acute organ dysfunction status: without acute organ dysfunction Sepsis type: sepsis due to unspecified organism Qualified Code(s): A41.9 - Sepsis, unspecified organism (2) Pyelonephritis: Plan: Patient has septic physiology with tachycardia, tachypnea, fever. Her leukocytosis alone is not significant enough to warrant a diagnosis of sepsis. Presumed source is pyelonephritis. Known history of UTI, diagnosed yesterday. Pending speciation. Perinephric fat stranding present on CT. No obstructing stone or hydronephrosis. - Normal lactate, defer further fluids - Started on meropenem every 8 hours with history of ESBL - Follow-up urine culture and sensitivities, blood cultures - CBC and BMP a.m. (3) Hyperkalemia: Plan: Potassium 5.2 on arrival. History of chronic mild hyperkalemia, likely associated with her CKD. No EKG changes from yesterday, however EKG was not done today. - Check EKG, if progression will give calcium gluconate - Lokelma x 1 - BMP a.m. (4) Stage 3a chronic kidney disease (CKD): Plan: Patient with known history of chronic kidney disease. Came in with creatinine of 1.5, slightly up from her baseline between 1.0 and 1.3. Still making urine. Suspect she may have some mild ATN from her infection versus possibly a recent passed stone, though the latter is less likely given no ureteral dilation. - Patient should not be on NSAIDs, recommend discontinuing indefinitely - She got 1 L of fluids in the ED, defer further fluids as above - Encourage oral hydration - BMP a.m. (5) COPD (chronic obstructive pulmonary disease): Qualifiers: COPD type: unspecified COPD Qualified Code(s): J44.9 - Chronic obstructive pulmonary disease, unspecified (6) Chronic respiratory failure: Plan: Per her records, she may be on 2 L continuously per her recommendation however she states to her primary care doctor that she uses her oxygen as needed. On regular inhalers for COPD - Continue oxygen as needed, goal saturation 88 to 92% - Continue home inhalers - Albuterol as needed (7) Bipolar 2 disorder: (8) PTSD (post-traumatic stress disorder): Plan: Patient feels like she is mostly stabilized with regard to her psychiatric history. She is on citalopram 20 mg, valproate 250 mg, quetiapine 300 mg and trazodone 300 mg. She is coping well with these medications. - Continue citalopram and the valproate - Continue quetiapine and trazodone nightly - Delirium precautions (9) Closed fracture of left distal fibula: (10) Chronic pain: Plan: Patient with recent distal nonoperative left fibula fracture. She is not having much pain from her ankle. She does have chronic pains for which she is on a litany of narcotic and nonnarcotic pain medications. Her list includes diclofenac 75 mg p.o. twice daily as well as ibuprofen 600 mg every 6 hours as needed. She does report occasional ibuprofen, but daily diclofenac. As above, NSAIDs contraindicated in her renal state. - Scheduled Tylenol every 6 hours - Oxycodone oral for breakthrough as needed - Continue Lyrica 150 mg p.o. twice daily - Continue tizanidine 4 mg every 8 hours as needed - Topical diclofenac Lab Results 01/17/25 16:14 01/17/25 16:14
--- OUTSIDE RECORDS SUMMARY | 2025-01-17 17:22 | EXTERNAL MEDICAL SUMMARY RPT | Continuity of Care Document ---
Author Organization [place] Address [address] [place] [id number] Phone Problems date description facility 2024-11-04 11:38 [facility]epsis, [facility] 11:38 Type 2 diabetes shelia itus with other [facility] 11:38 Type 2 diabetes mellitus withou t complications [facility]04 11:38 [facility] 2024-11-04 11:38 Major depressive dis order, single episode, unspecified [facility] 2024-11-04 11:38 Generalized anxiety disorder [facility]24-[facility]-04 11:38 Encephalopathy, unspecified [facility] 2024-11-04 11:38 Essential (primary) [facility]ensio [facility] 2024-[facility]04 11:38 Acute upper respiratory infecti on, unspecified [facility] 2024-11-04 11:38 Chronic obstructive pulmonary disease with (acute) [facility]24-[facility]04 11:38 Mild intermittent asthma with ( acute) [facility] 2024-11-04 11:38 Moderate persistent asthma with (acute) [facility] 2024-11-04 11:38 Unspecified asthma with (acute) [facility]ation [facility] 2024-[facility]04 11:38 Acute respiratory failure with hypoxia [facility] 2024-11-04 11:38 Acute and chronic respiratory f ailure with hypoxia [facility] 2024-11[facility]04 11:38 Pain in right [facility] 2024-11-04 11:38 Acute kidney failure, unspecifi ed [facility] 2024-11-04 11:38 Urinary tract infection, site n ot specified [facility] 2024-11-04 11:38 Cough, unspecified [facility] 2024-11-04 11:38 Dyspnea, unspecified Counts include 234 beds at the [facility] 2024-11-04 11:38 Shortness of breath [email or web address]24-[facility]-04 11:38 Hypoxemia [facility] 2024-11-04 11:38 Fever, unspecified [facility] 2024-11-04 11:38 Other fatigue [facility] 2024-11-04 11:38 Strain of unspecifie d muscle, fascia and tendon at shoulder and upper arm level, right arm, initial encounter [facility] 2024-11-04 11:38 Unspecified injury o f right shoulder and upper arm, [facility] 2024-11-04 11:38 Fracture of unspecif ied metatarsal bone(s), unspecified foot, initial encounter [facility] closed [facility] 2024-11-04 11:38 Unspecified injury of left foot , [facility] 2024-11-04 11:38 Poisoning by fentany l or fentanyl analogs, accidental (unintentional), [facility] 2024-11-04 11:38 Encounter for issue of repeat p rescription [facility] 2024-11-04 11:38 Dependence on wheelchair [facility] 2024-11-04 11:40 Sepsis, [facility] 2024-11-04 11:40 Type 2 diabetes shelia itus with other specified [facility] 2024-11-04 11:40 Type 2 diabetes mellitus withou t complications [facility] 2024-11-04 11:40 [facility] 2024-11-04 11:40 Bipolar II disorder [facility] 2024-11-04 11:40 Major depressive dis order, single episode, unspecified [facility] 2024-11-04 11:40 Generalized [facility] 2024-11-04 11:40 Other chronic pain [facility] 2024-11-04 11:40 Encephalopathy, unspecified [facility] 2024-11-04 11:40 Essential (primary) [facility]ensio n [facility] 2024-11-04 11:40 Acute upper respiratory infecti on, unspecified [facility] 2024-11-04 11:40 Chronic obstructive pulmonary disease with (acute) exacerbation [employer] 2024-11-04 11:40 Mild intermittent asthma with ( acute) exacerbation [employer] 2024-11-04 11:40 Moderate persistent asthma with (acute) exacerbation [facility] 2024-11-04 11:40 Unspecified asthma with (acute) exacerbation [facility] 2024-11-04 11:40 Acute respiratory failure with hypoxia [facility] 2024-11-04 11:40 Acute and chronic respiratory f ailure with hypoxia [facility] 2024-11-04 11:40 Pain in right shoulder [facility] 2024-11-04 11:40 Acute kidney failure, unspecifi ed [facility] 2024-11-04 11:40 Urinary tract infection, site n ot specified [facility] 2024-11-04 11:40 Cough, unspecified [facility] 2024-11-04 11:40 Dyspnea, unspecified [employer] [facility] 2024-11-04 11:40 Shortness of breath [facility] 2024-11-04 11:40 Hypoxemia [facility] 2024-11-04 11:40 Fever, unspecified [employer] [facility] 2024-11-04 11:40 Other [facility] 2024-11[facility]04 11:40 Strain of unspecifie d muscle, fascia and tendon at shoulder and upper arm level, right arm, initial encounter [facility] 2024-11-04 11:40 Unspecified injury o f right shoulder and upper arm, [facility] 2024-11-04 11:40 Fracture of unspecif ied metatarsal bone(s), unspecified foot, initial encounter for closed fracture [employer] 2024-11-04 11:40 Unspecified injury of left foot , initial encounter [facility] 2024-11-04 11:40 Poisoning by fentany l or fentanyl analogs, accidental (unintentional), initial encounter [employer] 2024-11-04 11:40 Encounter for issue of repeat p rescription [facility] 2024-11-04 11:40 Dependence on wheelchair [facility] 2024-11-04 11:45 Sepsis, unspecified organism [facility] 2024-11-04 11:45 Type 2 diabetes shelia itus with other specified complication [facility] 2024-11-04 11:45 Type 2 diabetes mellitus withou t complications [facility] 2024-11-04 11:45 Bipolar II disorder [facility] 2024-11-04 11:45 Major depressive dis order, single episode, unspecified [facility] 2024-11-04 11:45 Generalized anxiety disorder [facility] 2024-11-04 11:45 Encephalopathy, unspecified [facility] 2024-11-04 11:45 Essential (primary) hypertensio n [facility] 2024-11-04 11:45 Acute upper respiratory infecti on, unspecified [facility] 2024-11-04 11:45 Chronic obstructive pulmonary disease with (acute) exacerbation [facility] 2024-11-04 11:45 Mild intermittent asthma with ( acute) exacerbation [facility] 2024-11-04 11:45 Moderate persistent asthma with (acute) exacerbation [facility] 2024-11-04 11:45 Unspecified asthma with (acute) exacerbation [facility] 2024-11-04 11:45 Acute respiratory failure with hypoxia [facility] 2024-11-04 11:45 Acute and chronic respiratory f ailure with hypoxia [facility] 2024-11-04 11:45 Pain in right shoulder [facility] 2024-11-04 11:45 Acute kidney failure, unspecifi ed [facility] 2024-11-04 11:45 Urinary tract infection, site n ot specified [facility] 2024-11-04 11:45 Cough, unspecified [facility] 2024-11-04 11:45 Dyspnea, unspecified [facility] 2024-11-04 11:45 Shortness of breath [email or web address] 2024-11-04 11:45 [facility]emia [facility] 2024-11-04 11:45 Fever, unspecified [facility] 2024-11-04 11:45 Other fatigue [facility] 2024-11-04 11:45 Strain of unspecifie d muscle, fascia and tendon at shoulder and upper arm level, right arm, [facility] 2024-11-04 11:45 Unspecified injury o f right shoulder and upper arm, [email or web address] 2024-11-04 11:45 Fracture of unspecif ied metatarsal bone(s), unspecified foot, initial encounter [facility] closed [facility] 2024-11[facility]04 11:45 Unspecified injury of left foot , [facility] 2024-11-04 11:45 Poisoning by fentany l or fentanyl analogs, accidental (unintentional), [facility] 2024-11-04 11:45 Encounter for issue of repeat p rescription [facility] 2024-11-04 11:45 Dependence on wheelchair [facility] 2024-11-04 11:48 Sepsis, unspecified [facility]24-[facility]04 11:48 Type 2 diabetes shelia itus with other specified complication [facility] 2024-11-04 11:48 Type 2 diabetes mellitus withou t complications [facility] 2024-11-04 11:48 Bipolar II disorder [facility] 2024-11-04 11:48 Major depressive dis order, single episode, unspecified [facility] 2024-11-04 11:48 Generalized anxiety disorder [facility] 2024-11-04 11:48 Encephalopathy, unspecified [facility] 2024-11-04 11:48 Essential (primary) hypertensio n [facility] 2024-11-04 11:48 Acute upper respiratory infecti on, unspecified [facility] 2024-11-04 11:48 Chronic obstructive pulmonary disease with (acute) exacerbation [facility] 2024-11-04 11:48 Mild intermittent asthma with ( acute) exacerbation [facility] 2024-11-04 11:48 Moderate persistent asthma with (acute) exacerbation [facility] 2024-11-04 11:48 Unspecified asthma with (acute) exacerbation [facility] 2024-11-04 11:48 Acute respiratory failure with hypoxia [facility] 2024-11-04 11:48 Acute and chronic respiratory f ailure with hypoxia [email or web address] 2024-11-04 11:48 Pain in right shoulder [facility] 2024-11-04 11:48 Acute kidney failure, unspecifi ed [facility] 2024-11-04 11:48 Urinary tract infection, site n ot specified [facility] 2024-11-04 11:48 Cough, unspecified [facility] 2024-11-04 11:48 Dyspnea, unspecified Counts include 234 beds at the [facility] 2024-11-04 11:48 Shortness of breath [email or web address] 2024-11-04 11:48 Hypoxemia [facility] 2024-11-04 11:48 Fever, unspecified [facility] 2024-11-04 11:48 Other fatigue [facility] 2024-11-04 11:48 Strain of unspecifie d muscle, fascia and tendon at shoulder and upper arm level, right arm, initial encounter [facility] 2024-11-04 11:48 Unspecified injury o f right shoulder and upper arm, initial encounter [facility] 2024-11-04 11:48 Fracture of unspecif ied metatarsal bone(s), unspecified foot, initial encounter for closed fracture [facility] 2024-11-04 11:48 Unspecified injury of left foot , initial encounter [facility] 2024-11-04 11:48 Poisoning by fentany l or fentanyl analogs, accidental (unintentional), [email or web address] 2024-11-04 11:48 Encounter for issue of repeat p rescription [facility] 2024-11-04 11:48 Dependence on wheelchair [email or web address] 2024-11-04 13:06 Sepsis, unspecified organism [email or web address] 2024-11-04 13:06 Type 2 diabetes shelia itus with other specified complication [email or web address] 2024-11-04 13:06 Type 2 diabetes mellitus withou t complications [email or web address] 2024-11-04 13:06 Bipolar II disorder [facility] 2024-11-04 13:06 Major depressive dis order, single episode, unspecified [facility] 2024-11-04 13:06 Generalized anxiety disorder [facility] 2024-11-04 13:06 Encephalopathy, unspecified [facility] 2024-11-04 13:06 Essential (primary) hypertensio n [facility] 2024-11-04 13:06 Acute upper respiratory infecti on, unspecified [facility] 2024-11-04 13:06 Chronic obstructive pulmonary disease with (acute) exacerbation [facility] 2024-11-04 13:06 Mild intermittent asthma with ( acute) exacerbation [facility] 2024-11-04 13:06 Moderate persistent asthma with (acute) exacerbation [facility] 2024-11-04 13:06 Unspecified asthma with (acute) exacerbation [facility] 2024-11-04 13:06 Acute respiratory failure with hypoxia [facility] 2024-11-04 13:06 Acute and chronic respiratory f ailure with hypoxia [facility] 2024-11-04 13:06 Pain in right shoulder [facility] 2024-11-04 13:06 Acute kidney failure, unspecifi ed [facility] 2024-11-04 13:06 Urinary tract infection, site n ot specified [facility] 2024-11-04 13:06 Cough, unspecified [facility] 2024-11-04 13:06 Dyspnea, unspecified [facility] 2024-11-04 13:06 Shortness of breath [facility] 2024-11-04 13:06 Hypoxemia [facility] 2024-11-04 13:06 Fever, unspecified [facility] 2024-11-04 13:06 Other fatigue [facility] 2024-11-04 13:06 Strain of unspecifie d muscle, fascia and tendon at shoulder and upper arm level, right arm, [facility] 2024-11-04 13:06 Unspecified injury o f right shoulder and upper arm, initial encounter [facility] 2024-11-04 13:06 Fracture of unspecif ied metatarsal bone(s), unspecified foot, initial encounter [facility] closed fracture [facility] 2024-11-04 13:06 Unspecified injury of left foot , [facility] 2024-11-04 13:06 Poisoning by fentany l or fentanyl analogs, accidental (unintentional), [facility] 2024-11-04 13:06 Encounter for issue of repeat p rescription [facility] 2024-11-04 13:06 Dependence on wheelchair [facility] 2024-11-04 13:11 Sepsis, unspecified organism [facility] 2024-11-04 13:11 Type 2 diabetes shelia itus with other specified complication [facility] 2024-11-04 13:11 Type 2 diabetes mellitus withou t complications [facility] 2024-11-04 13:11 Bipolar II disorder [facility] 2024-11-04 13:11 Major depressive dis order, single episode, unspecified [facility] 2024-11-04 13:11 Generalized anxiety disorder [facility] 2024-11-04 13:11 Encephalopathy, unspecified [facility] 2024-11-04 13:11 Essential (primary) hypertensio n [facility] 2024-11-04 13:11 Acute upper respiratory infecti on, unspecified [facility] 2024-11-04 13:11 Chronic obstructive pulmonary disease with (acute) exacerbation [facility] 2024-11-04 13:11 Mild intermittent asthma with ( acute) exacerbation [facility] 2024-11-04 13:11 Moderate persistent asthma with (acute) exacerbation [facility] 2024-11-04 13:11 Unspecified asthma with (acute) exacerbation [facility] 2024-11-04 13:11 Acute respiratory failure with hypoxia [facility] 2024-11-04 13:11 Acute and chronic respiratory f ailure with hypoxia [facility] 2024-11-04 13:11 Pain in right shoulder [facility] 2024-11-04 13:11 Acute kidney failure, unspecifi ed [facility] 2024-11-04 13:11 Urinary tract infection, site n ot specified [facility] 2024-11-04 13:11 Cough, unspecified [facility] 2024-11-04 13:11 Dyspnea, unspecified [facility] 2024-11-04 13:11 [facility] 2024-11-04 13:11 Hypoxemia [facility] 2024-11-04 13:11 Fever, unspecified [facility] 2024-11-04 13:11 Other fatigue [facility] 2024-11-04 13:11 Strain of unspecifie d muscle, fascia and tendon at shoulder and upper arm level, right arm, initial encounter [facility] 2024-11-04 13:11 Unspecified injury o f right shoulder and upper arm, initial encounter [facility] 2024-11-04 13:11 Fracture of unspecif ied metatarsal bone(s), unspecified foot, initial encounter for closed fracture [facility] 2024-11-04 13:11 Unspecified injury of left foot , initial encounter [facility] 2024-11-04 13:11 Poisoning by fentany l or fentanyl analogs, accidental (unintentional), initial encounter [facility] 2024-11-04 13:11 Encounter for issue of repeat p rescription [facility] 2024-11-04 13:11 Dependence on wheelchair [facility] 2024-11-24 15:54 Strain of unspecifie d muscle, fascia and tendon at shoulder and upper arm level, right arm, initial encounter [facility] 2024-11-26 09:03 Strain of unspecifie d muscle, fascia and tendon at shoulder and upper arm level, right arm, initial encounter [facility] 2024-11-26 14:06 Procedure and treatm ent not carried out due to patient leaving prior to being seen by health care provider [email or web address] 2024-11-30 12:40 Procedure and treatm ent not carried out due to patient leaving prior to being seen by health care provider [email or web address] 2024-12-01 13:25 Strain of unspecifie d muscle, fascia and tendon at shoulder and upper arm level, right arm, initial [facility] 2024-12-01 14:41 Cellulitis of left lower limb [employer] [facility] 2024-12-01 15:20 Cellulitis of left lower limb [employer] [facility] 2024-12-02 11:55 Toxic effect of unsp ecified spider venom, accidental (unintentional), [facility] 2024-12-03 11:37 Cellulitis of left lower limb [facility] 2024-12-03 11:37 Toxic effect of unsp ecified spider venom, accidental (unintentional), initial encounter [facility] 2024-12-04 13:14 Acute cystitis without hematuri a [facility] 2024-12-09 14:45 Cellulitis of left lower limb [facility] 2024-12-09 14:45 Acute cystitis without hematuri a [facility] 2024-12-09 14:45 Torus fracture of lo wer end of left fibula, initial encounter for closed fracture [facility] 2024-12-10 08:09 Weakness [facility] 2024-12-10 12:39 Bed confinement status [facility] 2024-12-10 13:02 Pain in left ankle and joints o f left foot [facility] 2024-12-10 18:24 Encephalopathy, unspecified [facility] 2024-12-10 21:01 Bipolar II disorder [facility] 2024-12-10 21:01 Encephalopathy, unspecified [facility] 2024-12-10 21:01 [facility] 2024-12-10 21:01 Acute kidney failure, unspecifi ed [facility] 2024-12-11 09:32 Bipolar II disorder [facility] 2024-12-11 09:32 Encephalopathy, unspecified [facility] 2024-12-11 09:32 Chronic obstructive pulmonary d isease, unspecified [facility] 2024-12-11 09:32 Acute kidney failure, unspecifi ed [facility] 2024-12-11 12:42 [facility] 2024-12-11 12:42 Encephalopathy, unspecified [facility] 2024-12-11 12:42 Chronic obstructive pulmonary d isease, unspecified [facility] 2024-12-11 12:42 Acute kidney failure, unspecifi ed [facility] 2024-12-11 12:58 B[facility] 2024-12-11 12:58 Encephalopathy, unspecified [facility] 2024-12-11 12:58 Chronic obstructive pulmonary d isease, unspecified [facility] 2024-12-11 12:58 Acute kidney failure, unspecifi ed [facility] 2024-12-11 13:20 Bipolar II disorder [facility] 2024-12-11 13:20 Encephalopathy, unspecified [facility] 2024-12-11 13:20 Chronic obstructive pulmonary d isease, unspecified [facility] 2024-12-11 13:20 Acute kidney failure, unspecifi ed [facility] 2024-12-11 17:03 Bipolar II disorder [facility] 2024-12-11 17:03 Encephalopathy, unspecified [facility] 2024-12-11 17:03 Chronic obstructive pulmonary d isease, unspecified [facility] 2024-12-11 17:03 Acute kidney failure, unspecifi ed [facility] 2024-12-13 06:33 Sepsis, unspecified organism [facility] 2024-12-13 06:33 Type 2 diabetes shelia itus with other specified complication [facility] 2024-12-13 06:33 Type 2 diabetes mellitus withou t complications [facility] 2024-12-13 06:33 Bipolar II disorder [facility] 2024-12-13 06:33 Major depressive dis order, single episode, unspecified [facility] 2024-12-13 06:33 Generalized anxiety disorder [facility] 2024-12-13 06:33 Encephalopathy, unspecified [facility] 2024-12-13 06:33 Essential (primary) hypertensio n [facility] 2024-12-13 06:33 Acute upper respiratory infecti on, [facility] 2024-12-13 06:33 Chronic obstructive pulmonary disease with (acute) exacerbation [facility] 2024-12-13 06:33 Chronic obstructive pulmonary d isease, unspecified [facility] 2024-12-13 06:33 Mild intermittent asthma with ( acute[facility] 06:33 Moderate persistent asthma with (acute) exacerbation [facility] 2024-12-13 06:33 Unspecified asthma with (acute) exacerbation [facility] 2024-12-13 06:33 Acute respiratory failure with hypoxia [facility] 2024-12-13 06:33 Acute and chronic respiratory f ailure with hypoxia [facility] 2024-12-13 06:33 Cellulitis of left lower limb [facility] 2024-12-13 06:33 Pain in right shoulder [facility] 2024-12-13 06:33 Pain in left ankle and joints o f left foot [facility] 2024-12-13 06:33 Acute kidney failure, unspecifi ed [facility] 2024-12-13 06:33 Acute cystitis without hematuri a [facility] 2024-12-13 06:33 Urinary tract infection, site n ot specified [facility] 2024-12-13 06:33 [facility], [facility] 2024-12-13 06:33 Dyspnea, [facility] 2024-12-13 06:33 [facility]ness [facility] breath [facility] 2024-12-13 06:33 Hypoxemia [facility] 2024-12-13 06:33 Disorientation, unspecified [facility] 2024-12-13 06:33 Fever, unspecified [facility] 2024-12-13 06:33 Other fatigue [facility] 2024-12-13 06:33 Strain of unspecifie d muscle, fascia and tendon at shoulder and upper arm level, right arm, initial encounter [facility] 2024-12-13 06:33 Fracture of unspecif ied metatarsal bone(s), unspecified foot, initial encounter for closed fracture [facility] 2024-12-13 06:33 Unspecified injury of left foot , initial encounter [facility] 2024-12-13 06:33 Poisoning by fentany l or fentanyl analogs, accidental (unintentional), initial encounter [facility] 2024-12-13 06:33 Toxic effect of unsp ecified spider venom, accidental (unintentional), initial encounter [facility] 2024-12-13 06:33 Procedure and treatm ent not carried out due to patient leaving prior to being seen by health care provider [email or web address]-13 06:33 Encounter for issue of repeat p rescription [email or web address] 2024-12-13 06:33 Dependence on wheelchair [email or web address] 2024-12-13 07:09 Bipolar II disorder [facility] 2024-12-13 07:09 Encephalopathy, unspecified [facility] 2024-12-13 07:09 Chronic obstructive pulmonary d isease, unspecified [facility] 2024-12-13 07:09 Acute kidney failure, unspecifi ed [facility] 2024-12-13 09:24 Bed confinement status [facility] 2024-12-13 09:43 Weakness [facility] 2024-12-13 09:46 Encounter for observ ation for other suspected diseases and conditions ruled out [email or web address] 2024-12-14 08:41 Bipolar II disorder [facility] 2024-12-14 08:41 Encephalopathy, unspecified [facility] 2024-12-14 08:41 Chronic obstructive pulmonary d isease, unspecified [facility] 2024-12-14 08:41 Pain in left ankle and joints o f left foot [facility] 2024-12-14 08:41 Acute kidney failure, unspecifi ed [facility] 2024-12-14 08:41 Altered mental status, unspecif ied [email or web address] 2024-12-15 09:45 Sepsis, unspecified organism [email or web address] 2024-12-15 09:45 Type 2 diabetes shelia itus with other specified complication [email or web address] 2024-12-15 09:45 Type 2 diabetes mellitus withou t complications [email or web address] 2024-12-15 09:45 Bipolar II disorder [facility] 2024-12-15 09:45 Major depressive dis order, single episode, unspecified [facility] 2024-12-15 09:45 Generalized anxiety disorder [facility] 2024-12-15 09:45 Encephalopathy, unspecified [facility] 2024-12-15 09:45 Essential (primary) hypertensio n [facility] 2024-12-15 09:45 Chronic obstructive pulmonary disease with (acute) exacerbation [facility] 2024-12-15 09:45 Mild intermittent asthma with ( acute) exacerbation [facility] 2024-12-15 09:45 Acute [facility] 2024-12-15 09:45 Acute and chronic respiratory f ailure with hypoxia [facility] 2024-12-15 09:45 [facility] lower [facility] 2024-12-15 09:45 Pain in right shoulder [facility] 2024-12-15 09:45 Pain in left ankle and joints o f left foot [facility] 2024-12-15 09:45 Acute kidney failure, unspecifi ed [facility] 2024-12-15 09:45 Acute cystitis without hematuri a [facility] 2024-12-15 09:45 Urinary tract infection, site n ot specified [facility] 2024-12-15 09:45 Cough, unspecified [facility] 2024-12-15 09:45 [facility]ness [facility] breath [facility] 2024-12-15 09:45 [facility]oxemia [facility] 2024-12-15 09:45 Disorientation, unspecified [facility] 2024-12-15 09:45 Fever, unspecified [facility] 2024-12-15 09:45 Other fatigue [facility] 2024-12-15 09:45 Strain of unspecifie d muscle, fascia and tendon at shoulder and upper arm level, right arm, [facility] 2024-12-15 09:45 Poisoning by fentany l or fentanyl analogs, accidental (unintentional), [facility] 2024-12-15 09:45 Toxic effect of unsp ecified spider venom, accidental (unintentional), [facility] 2024-12-15 09:45 Procedure and treatm ent not carried out due to patient leaving prior to being seen by health care provider [facility] 2024-12-15 09:45 Encounter for issue of repeat p rescription [facility] 2024-12-15 09:45 Dependence on wheelchair [facility] 2024-12-15 13:52 Transient alteration of awarene ss [facility] 2024-12-15 14:16 Altered mental status, unspecif ied [facility] 2024-12-20 08:35 Bed confinement status [facility] 2024-12-22 09:12 Sepsis, unspecified organism [facility] 2024-12-22 09:12 Type 2 diabetes shelia itus with other specified complication [facility] 2024-12-22 09:12 Type 2 diabetes mellitus withou t complications [facility] 2024-12-22 09:12 Bipolar II disorder [facility] 2024-12-22 09:12 Major depressive dis order, single episode, unspecified [facility] 2024-12-22 09:12 Generalized anxiety disorder [facility] 09:12 Encephalopathy, unspecified [facility] 2024-12-22 09:12 Essential (primary) hypertensio n [facility] 2024-12-22 09:12 Acute upper respiratory infecti on, unspecified [facility] 2024-12-22 09:12 Chronic obstructive pulmonary disease with (acute) exacerbation [facility] 2024-12-22 09:12 Mild intermittent asthma with ( acute) exacerbation [facility] 2024-12-22 09:12 Moderate persistent asthma with (acute) exacerbation [facility] 2024-12-22 09:12 Unspecified asthma with (acute) exacerbation [facility] 2024-12-22 09:12 Acute respiratory failure with hypoxia [facility] 2024-12-22 09:12 Acute and chronic respiratory f ailure with hypoxia [facility] 2024-12-22 09:12 [facility] of left lower limb [facility] 09:12 Pain in right shoulder [facility] 2024-12-22 09:12 Pain in left ankle and joints o f left foot [facility] 2024-12-22 09:12 Acute kidney failure, unspecifi ed [facility] 2024-12-22 09:12 Acute cystitis without hematuri a [facility] 2024-12-22 09:12 Urinary tract infection, site n ot specified [facility] 2024-12-22 09:12 Cough, unspecified [facility] 2024-12-22 09:12 Dyspnea, unspecified [facility] 2024-12-22 09:12 Shortness of breath [facility] 2024-12-22 09:12 Hypoxemia [facility] 2024-12-22 09:12 Disorientation, unspecified i [facility] 2024-12-22 09:12 Fever, unspecified lis[facility] 2024-12-22 09:12 Other fatigue [facility] 2024-12-22 09:12 Strain of unspecifie d muscle, fascia and tendon at shoulder and upper arm level, right arm, initial encounter [facility] 2024-12-22 09:12 Fracture of unspecif ied metatarsal bone(s), unspecified foot, initial encounter for closed fracture [facility] 2024-12-22 09:12 Unspecified injury of left foot , initial encounter [facility] 2024-12-22 09:12 Poisoning by fentany l or fentanyl analogs, accidental (unintentional), [facility] 2024-12-22 09:12 Toxic effect of unsp ecified spider venom, accidental (unintentional), [facility] 2024-12-22 09:12 Procedure and treatm ent not carried out due to patient leaving prior to being seen by health care provider [facility] 2024-12-22 09:12 Encounter for issue of repeat p rescription [facility] 2024-12-22 09:12 Dependence on wheelchair [facility] 2024-12-22 10:26 Type 2 diabetes mellitus withou t complications [facility] 2024-12-22 10:41 Sepsis, unspecified organism [facility] 2024-12-22 10:41 Type 2 diabetes shelia itus with other specified complication [facility] 2024-12-22 10:41 Type 2 diabetes mellitus withou t complications [facility] 2024-12-22 10:41 Bipolar II disorder [facility] 2024-12-22 10:41 Major depressive dis order, single episode, unspecified [facility] 2024-12-22 10:41 Generalized anxiety disorder [facility]22 10:41 Encephalopathy, unspecified [facility] 2024-12-22 10:41 Essential (primary) hypertensio n [facility] 2024-12-22 10:41 Acute upper respiratory infecti on, unspecified [facility] 2024-12-22 10:41 Chronic obstructive pulmonary disease with (acute) exacerbation [facility] 2024-12-22 10:41 Mild intermittent asthma with ( acute) exacerbation [facility] 2024-12-22 10:41 Moderate persistent asthma with (acute) exacerbation [facility] 2024-12-22 10:41 Unspecified asthma with (acute) exacerbation [facility] 2024-12-22 10:41 Acute respiratory failure with hypoxia [facility] 2024-12-22 10:41 Acute and chronic respiratory f ailure with hypoxia [facility] 2024-12-22 10:41 Cellulitis of left lower limb [facility] 10:41 Pain in right shoulder [facility] 2024-12-22 10:41 Pain in left ankle and joints o f left foot [facility] 2024-12-22 10:41 Acute kidney failure, unspecifi ed [facility] 2024-12-22 10:41 Acute cystitis without hematuri a [facility] 2024-12-22 10:41 Urinary tract infection, site n ot specified [facility] 2024-12-22 10:41 Cough, unspecified [employer] [facility] 2024-12-22 10:41 Dyspnea, unspecified [employer] [facility] 2024-12-22 10:41 Shortness of breath [facility] 2024-12-22 10:41 Hypoxemia [facility] 2024-12-22 10:41 Disorientation, unspecified [facility] 2024-12-22 10:41 Fever, unspecified [employer] [facility] 2024-12-22 10:41 Other fatigue [facility] 2024-12-22 10:41 Strain of unspecifie d muscle, fascia and tendon at shoulder and upper arm level, right arm, initial encounter [facility] 2024-12-22 10:41 Fracture of unspecif ied metatarsal bone(s), unspecified foot, initial encounter for closed fracture [facility] 2024-12-22 10:41 Unspecified injury of left foot , [facility] 2024-12-22 10:41 Poisoning by fentany l or fentanyl analogs, accidental (unintentional), [facility] 2024-12-22 10:41 Toxic effect of unsp ecified spider venom, accidental (unintentional), [facility] 2024-12-22 10:41 Procedure and treatm ent not carried out due to patient leaving prior to being seen by health care provider [facility] 2024-12-22 10:41 Encounter for issue of repeat p rescription [facility] 2024-12-22 10:41 Dependence on wheelchair [facility] 2024-12-27 09:58 Pain in left ankle and joints o f left foot [facility] 2024-12-27 09:58 Unspecified fracture of shaft of humerus, unspecified arm, initial encounter for closed fracture [facility] 2024-12-28 00:03 Pain in left ankle and joints o f left foot [facility] 2024-12-28 00:03 Unspecified fracture of shaft of humerus, unspecified arm, initial encounter for closed fracture [facility] 2024-12-28 11:18 Other fracture of up per and lower end of left fibula, initial encounter for closed fracture [facility] 2024-12-29 09:26 Other fracture of le ft lower leg, initial encounter for closed fracture [facility] 2024-12-29 09:26 Asymptomatic menopausal state [facility] 09:54 Pain in left ankle and joints o f left foot [facility] 2025-01-03 09:54 Unspecified fracture of shaft of humerus, right arm, initial encounter for closed fracture [facility] 2025-01-05 12:58 Other fracture of up per and lower end of left fibula, initial encounter for closed fracture [facility] 2025-01-06 00:03 Other fracture of up per and lower end of left fibula, initial encounter for closed fracture [facility] 2025-01-07 10:39 Encounter for observ ation for other suspected diseases and conditions ruled out [employer] 2025-01-10 11:01 Unspecified urinary incontinenc e [employer] 2025-01-11 09:14 Cellulitis of left lower limb [facility] 2025-01-11 09:14 Acute cystitis without hematuri a [employer] 2025-01-11 09:14 Torus fracture of lo wer end of left fibula, initial encounter for closed fracture [employer] 2025-01-13 11:36 Other fracture of up per and lower end of left fibula, initial encounter for closed fracture [employer] 2025-01-13 12:23 Other fracture of up per and lower end of left fibula, initial encounter for closed fracture [employer] 2025-01-14 09:18 Other fracture of le ft lower leg, initial encounter for closed fracture [employer] 2025-01-14 09:18 Asymptomatic menopausal state [facility] 2025-01-14 09:21 Other fracture of le ft lower leg, initial encounter for closed fracture [employer] 2025-01-14 09:21 Asymptomatic menopausal state [facility] 2025-01-16 09:00 Unspecified urinary incontinenc e [employer] 2025-01-16 09:00 Other fracture of le ft lower leg, initial encounter for closed fracture [employer] [facility] 2025-01-16 09:00 Asymptomatic menopausal state [facility] 2025-01-16 11:58 Urinary tract infection, site n ot specified [employer] [facility] 2025-01-16 12:42 Urinary tract infection, site n ot specified [employer] Results/Labs test date facility value unit notes Result panel 1 CLINDAMYCIN 2024-12-01 14:21 [facility] (missing) (missing) (missing) CUL,WOUND (AEROBIC) 2024-12-01 14:21 [employer] [facility] (missing) (missing) (missing) PENICILLIN-G 2024-12-01 14:21 [employer] [facility] >=0.5 (missing) (missing) ERYTHROMYCIN 2024-12-01 14:21 [facility] >=8 (missing) (missing) TIGECYCLINE 2024-12-01 14:21 [...] STAIN: (missing) (missing) CUL,WOUND (AEROBIC) 2024-12-01 14:21 [employer] [facility] IDMICID/OSITO COM* (missing) (missing) CUL,WOUND (AEROBIC) 2024-12-01 14:21 [facility] RARE GRAM POSITIVE COCCI (missing) (missing) CUL,WOUND (AEROBIC) 2024-12-01 14:21 [facility] SENSISENSITIVITIES TO FOLLOW (missing) (missing) O:STAAUR 2024-12-01 14:21 [employer] STAAURSTAPHYLOCOCCUS AUREUSSTAPHYLOCOCCUS AUREUS (missing) (missing) Result panel 2 LIPASE 2024-12-04 09:22 [employer] < 10 u/l As of September 2022 testing method has changed, this may include reference ranges. NUCLEATED RED BLOOD CELLS AUTO 2024-12-04 09:22 [employer] [facility] 0.0 /100wbc (missing) BASOPHILS # (AUTO) 2024-12-04 09:22 [employer] [facility] 0.0 10 3/ul (missing) NRBC ABSOLUTE COUNT (AUTO) 2024-12-04 09:22 [employer] [facility] 0.00 x10 3/ul (missing) EOSINOPHILS # (AUTO) 2024-12-04 09:22 [employer] 0.1 10 3/ul (missing) BILIRUBIN,TOTAL 2024-12-04 09:22 [employer] [facility] 0.5 mg /dl As of September 2022 testing method has changed, this may include reference ranges. ALBUMIN/GLOBULIN RATIO 2024-12-04 09:22 [employer] [facility] 1.0 (missing) (missing) MONOCYTES # (AUTO) 2024-12-04 09:22 [employer] [facility] 1.2 10 3/ul (missing) CREATININE 2024-12-04 09:22 [employer] 1.3 mg/dl As of September 2022 testing method has changed, this may include reference ranges. LYMPHOCYTES # (AUTO) 2024-12-04 09:22 [employer] 1.5 10 3/ul (missing) HGB - HEMOGLOBIN 2024-12-04 09:22 [employer] [facility] 10.8 g /dl (missing) PLT - PLATELET COUNT 2024-12-04 09:22 [employer] [facility] 118 10 3/ul (missing) NEUTROPHILS # (AUTO) 2024-12-04 09:22 [employer] 12.0 10 3/ul (missing) ALT ALANINE AMINOTRANSFERASE 2024-12-04 09:22 [facility] 13 iu/l As of September 2022 testing method has changed, this may include reference ranges. SODIUM 2024-12-04 09:22 [facility] 138 mmol/l (missing) RED CELL DISTRIBUTION WIDTH 2024-12-04 09:22 [facility] 14.9 % (missing) WHITE BLOOD COUNT 2024-12-04 09:22 [email or web address] 15.1 x10 3/ul (missing) AST ASPARTATE AMINOTRANSFERASE 2024-12-04: [facility] 19 iu/l As of September 2022 testing method has changed, this may include reference ranges. BUN - BLOOD UREA NITROGEN 2024-12-04:22 [employer] [facility] 22 mg/dl As of Sep testing method has changed, this may include reference ranges. ANION GAP 2024-12-04:22 [employer] [facility] 3.0 (missing ) (missing) ALBUMIN 2024-12-04 09: [employer] [facility] 3.2 g/dl As of September 2022 testing method has changed, this may include reference ranges. GLOBULIN 2024-12-04 09:22 [employer] [facility] 3.3 g/dl (missing) RED BLOOD COUNT 2024-12-04: [employer] [facility] 3.60 10 6/ul (missing) MEAN CORPUSCULAR HEMOGLOBIN 2024-12-04 09:22 [employer] [facility] 30.0 pg (missing) MEAN CORPUSCULAR HGB CONC 2024-12-04 09:22 [employer] [facility] 30.7 g/dl (missing) HCT - HEMATOCRIT 2024-12-04:22 [employer] [facility] 35.2 % (missing) CARBON DIOXIDE - CO2 2024-12-04: [employer] [facility] 36 mmol/l As of September 2022 testing method has changed, this may include reference ranges. POTASSIUM 2024-12-04:22 [employer] 4.4 mmol/l As of September 2022 testing method has changed, this may include reference ranges. GFR - MDRD 2024-12-04 09:22 [employer] 42 (zenon salcedo) The IDMS-traceable MDRD Study [...] updated May 2011. TOTAL PROTEIN 2024-12-04 09:22 [employer] [facility] 6.5 g/dl As of September 2022 testing method has changed, this may include reference ranges. ALKALINE PHOSPHATASE 2024-12-04 09:22 [employer] [facility] 60 iu/l As of September 2022 testing method has changed, this may include reference ranges. CALCIUM 2024-12-04 09:22 [employer] [facility] 8.9 mg/dl As of September 2022 testing method has changed, this may include reference ranges. GLUCOSE 2024-12-04 09:22 [employer] 88 mg/dl As of September 2022 testing method has changed, this may include reference ranges. MEAN PLATELET VOLUME 2024-12-04 09:22 [employer] [facility] 9.4 fl (missing) MEAN CORPUSCULAR VOLUME 2024-12-04 09:22 [facility] [facility] 97.8 fl (missing) CHLORIDE 2024-12-04 09:22 [facility] 99 mmol/l As of September 2022 testing method has changed, this may include reference ranges. Result panel 3 UROBILINOGEN,URINE 2024-12-04 10:45 [facility] 0.2 (NORMAL) e.u./dl (missing) SPECIFIC GRAVITY,URINE 2024-12-04 10:45 [facility] 1.020 (missing) (missing) PROTEIN,URINE 2024-12-04 10:45 [facility] 30 mg/dl (missing) WBC,URINE 2024-12-04 10:45 [facility] 6-10 /hpf (missing) PH,URINE 2024-12-04 10:45 [facility] 6.5 ph (missing) CLARITY,URINE 2024-12-04 10:45 [...] NGNo growth (missing) (missing) BACTERIA,URINE 2024-12-04 10:45 [facility] None Seen /hpf (missing) RBC,URINE 2024-12-04 10:45 [facility] None Seen /hpf (missing) SQUAMOUS EPITHELIAL CELL,UR 2024-12-04 10:45 [facility] RARE Squamous (missing) (missing) LEUKOCYTE ESTERASE, URINE 2024-12-04 10:45 [facility] TRACE (missing) (missing) KETONES,URINE (UA) 2024-12-04 10:45 [facility] TRACE mg/dl (missing) COLOR,URINE 2024-12-04 10:45 [facility] YELLOW (missing) URINE CATHETERIZED Result panel 4 SALICYLATE 2024-12-10 15:28 [facility] < 1.5 mg/dl Salicyalte Theraputic Range <30mg/dL As of September 2022 testing method has changed, this may include reference ranges. ETOH - ETHANOL 2024-12-10 15:28 [facility] < 10.0 mg/dl Blood Alcohol Levels Level [...] NUCLEATED RED BLOOD CELLS AUTO 2024-12-10 15:28 [email or web address] 0.0 /100wbc (missing) NRBC ABSOLUTE COUNT (AUTO) 2024-12-10 15:28 [facility] 0.00 x10 3/ul (missing) BASOPHILS # (AUTO) 2024-12-10 15:28 [facility] 0.1 10 3/ul (missing) BILIRUBIN,TOTAL 2024-12-10 15:28 [facility] 0.2 mg/dl As of September 2022 testing method has changed, this may include reference ranges. EOSINOPHILS # (AUTO) 2024-12-10 15:28 [facility] 0.3 10 3/ul (missing) ALBUMIN/GLOBULIN RATIO 2024-12-10 15:28 [facility] 1.0 (missing) (missing) MONOCYTES # (AUTO) 2024-12-10 15:28 [facility] 1.1 10 3/ul (missing) CREATININE 2024-12-10 15:28 [facility] 1.6 mg/dl As of September 2022 testing method has changed, this may include reference ranges. HGB - HEMOGLOBIN 2024-12-10 15:28 [facility] 10.5 g/dl (missing) WHITE BLOOD COUNT 2024-12-10 15:28 [facility] 10.8 x10 3/ul (missing) MEAN CORPUSCULAR VOLUME 2024-12-10 15:28 [facility] 100.6 fl (missing) GLUCOSE 2024-12-10 15:28 [facility] 119 mg/dl As of September 2022 testing method has changed, this may include reference ranges. SODIUM 2024-12-10 15:28 [facility] 136 mmol/l (missing) AST ASPARTATE AMINOTRANSFERASE 2024-12-10 15:28 [facility] 14 iu/l As of September 2022 testing method has changed, this may include reference ranges. RED CELL DISTRIBUTION WIDTH 2024-12-10 15:28 [facility] 15.1 % (missing) LIPASE 2024-12-10 15:28 [facility] 17 u/l As of September 2022 testing method has changed, this may include reference ranges. PLT - PLATELET COUNT 2024-12-10 15:28 [facility] 187 10 3/ul (missing) MAGNESIUM 2024-12-10 15:28 [facility] 2.0 mg/dl As of September 2022 testing method has changed, this may include reference ranges. LYMPHOCYTES # (AUTO) 2024-12-10 15:28 [facility] 2.1 10 3/ul (missing) MEAN CORPUSCULAR HGB CONC 2024-12-10 15:28 [facility] 29.7 g/dl (missing) MEAN CORPUSCULAR HEMOGLOBIN 2024-12-10 15:28 [facility] 29.8 pg (missing) ANION GAP 2024-12-10 15:28 [facility] 3.0 (missing) (missing) RED BLOOD COUNT 2024-12-10 15:28 [facility] 3.52 10 6/ul (missing) GLOBULIN 2024-12-10 15:28 [facility] 3.6 g/dl (missing) ACETAMINOPHEN 2024-12-10 15:28 [facility] 3.6 ug/ml Acetaminophen Therapeutic concentration 10-30 ug/mLHepatotoxicity concentrations - >150 ug/mL at 4hr after ingestion >75 ug/mL at 8hr after ingestion >40 ug/mL at 12hr after ingestion As of September 2022 testing method has changed, this may include reference ranges. ALBUMIN 2024-12-10 15:28 [facility] 3.7 g/dl As of September 2022 testing method has changed, this may include reference ranges. BUN - BLOOD UREA NITROGEN 2024-12-10 15:28 [facility] 32 mg/dl As of September 2022 testing method has changed, this may include reference ranges. GFR - MDRD 2024-12-10 15:28 [facility] 33 (missing) The IDMS-traceable MDRD Study Equation [...] May 2011. HCT - HEMATOCRIT 2024-12-10 15:28 [facility] 35.4 % (missing) CARBON DIOXIDE - CO2 2024-12-10 15:28 [facility] 36 mmol/l As of September 2022 testing method has changed, this may include reference ranges. POTASSIUM 2024-12-10 15:28 [facility] 4.9 mmol/l As of September 2022 testing method has changed, this may include reference ranges. VALPROIC ACID (DEPAKOTE) 2024-12-10 15:28 [facility] 42.5 ug/ml Valproic Acid Therapeutic Range Therapeutic 22614 ug/mL Toxicity may occur at levels of 427981 ug/mL As of September 2022 testing method has changed, this may include reference ranges. ALKALINE PHOSPHATASE 2024-12-10 15:28 [facility] 58 iu/l As of September 2022 testing method has changed, this may include reference ranges. THYROID STIMULATING HORMONE 2024-12-10 15:28 [facility] 6.35 uiu/ml (missing) NEUTROPHILS # (AUTO) 2024-12-10 15:28 [facility] 7.0 10 3/ul (missing) TOTAL PROTEIN 2024-12-10 15:28 [facility] 7.3 g/dl As of September 2022 testing method has changed, this may include reference ranges. ALT ALANINE AMINOTRANSFERASE 2024-12-10 15:28 [facility] 8 iu/l As of September 2022 testing method has changed, this may include reference ranges. MEAN PLATELET VOLUME 2024-12-10 15:28 [facility] 9.4 fl (missing) CALCIUM 2024-12-10 15:28 [facility] 9.6 mg/dl As of September 2022 testing method has changed, this may include reference ranges. CK- CREATINE KINASE 2024-12-10 15:28 [facility] 90 iu/l As of September 2022 testing method has changed, this may include reference ranges. CHLORIDE 2024-12-10 15:28 [facility] 97 mmol/l As of September 2022 testing method has changed, this may include reference ranges. Result panel 5 WBC,URINE 2024-12-10 17[facility] (missing) RBC,URINE 2024-12-10 17:09 [facility] 0-5 /hpf (missing) UROBILINOGEN,URINE 2024-12-10 17:09 [facility] 0.2 (NORMAL) e.u./dl (missing) SPECIFIC GRAVITY,URINE 2024-12-10 17:09 [facility] 1.020 (missin g) (missing) PH,URINE 2024-12-10 17:09 [facility] 6.0 ph (missing) CLARITY,URINE 2024-12-10 17:09 [facility] CLEAR (missin g) (missing) MUDS CUTOFF CONCENTRATIONS 2024-12-10 17:09 [facility] CUTOFF CONC BELOW: (missin g) [facility] uses the PROFILE-V 8Trip Drugs of Abuse Test System. It detects drug classes at the following cutoff concentrations: AMP Amphetamine (d-Amphetamine) 500 ng/mL BAR Barbiturates (Butalbital) 200 ng/mL BZO Benzodiazepines (Nordiazepam) 150 ng/mL BUP Buprenorphine (Buprenorphine) 10 ng/mL BARYR Cocaine (Benzoylecgonine) 150 ng/mL MAMP Methamphetamine (d-Methamphetamine ) 500 ng/mL MTD Methadone (Methadone) 200 ng/mL OPI Opiates (Morphine) 100 ng/mL OXY Oxycodone (Oxycodone) 100 ng/mL PCP Phencyclidine (Phencyclidine) 25 ng/mL BUP Buprenorphine (Buprenorphine) 10 ng/mL THC Cannabinoids (48-mvo-7-carboxy- 9-THC) 50 ng/mL TCA Tricyclic Antidepressants (Desipramine) [...] clinical presentation GLUCOSE, URINE (UA) 2024-12-10 17:09 [facility] NEGATIVE mg/dl (missing) KETONES,URINE (UA) 2024-12-10 17:09 [facility] NEGATIVE mg/dl (missing) CUL, URINE 2024-12-10 17:09 [facility] NGNo growth (missin g) (missing) FENTANYL SCREEN, URINE 2024-12-10 17:09 [facility] Negative (missin g) [facility] uses LZI Fentanyl (Q) Enzyme Immunoassay. RESULT [...] legal purposes. BENZODIAZEPINES SCREEN, URINE 2024-12-10 17:09 [facility] POSITIVE (missin g) (missing) OXYCODONE SCREEN, URINE 2024-12-10 17:09 [facility] POSITIVE (missin g) (missing) THC CANNABINOID SCREEN, URINE 2024-12-10 17:09 [facility] POSITIVE (missin g) (missing) TRICYCLIC ANTIDEPRESSANT,URINE 2024-12-10 17:09 [facility] POSITIVE (missin g) (missing) EPITHELIAL CELLS,UR 2024-12-10 17:09 [facility] RARE Renal Tubular /hpf (missing) BACTERIA,URINE 2024-12-10 17:09 [facility] Rare /hpf (missing) LEUKOCYTE ESTERASE, URINE 2024-12-10 17:09 [facility] TRACE (missin g) (missing) OCCULT BLOOD,URINE 2024-12-10 17:09 [facility] TRACE (missin g) (missing) PROTEIN,URINE 2024-12-10 17:09 [facility] TRACE mg/dl (missing) COLOR,URINE 2024-12-10 17:09 [facility] YELLOW (in g) URINE CATHETERIZED Result panel 6 VBG PO2 2024-12-10 [facility] 177.4 mmhg (missing) VBG HCO3 2024-12-10 17:56 [facility] 32.6 mmol/l (missing) VBG TOTAL CO2 2024-12-10 17:56 [facility] 34.2 mmol /l (missing) VBG PCO2 2024-12-10 17:56 [facility] 51.8 mmhg (missing) VBG PH 2024-12-10 17:56 [facility] 7.403 (missing ) (missing) [facility] BASE EXCESS 2024-12-10 17:56 [facility] 7.7 mm ol/l (missing) [facility] OXYGEN SATURATION 2024-12-10 17:56 [facility] 99.0 % (missing) Result panel 7 CREATININE 2024-12-11 08:55 [facility] 1.2 mg/dl As of September 2022 testing method has changed, this may include reference ranges. MEAN CORPUSCULAR VOLUME 2024-12-11 08:55 [facility] 100.3 fl (missing) CHLORIDE 2024-12-11 08:55 [facility] 102 mmol/l As of September 2022 testing method has changed, this may include reference ranges. SODIUM 2024-12-11 08:55 [facility] 139 mmol/l (missing) RED CELL DISTRIBUTION WIDTH 2024-12-11 08:55 [facility] 14.7 % (mi ssing) PLT - PLATELET COUNT 2024-12-11 08:55 [facility] 177 10 3/ul (missing) BUN - BLOOD UREA NITROGEN 2024-12-11 08:55 [facility] 22 mg/dl As of Sep testing method has changed, this may include reference ranges. MEAN CORPUSCULAR HGB CONC 2024-12-11 08:55 [facility] 29.1 g/dl (missing) MEAN CORPUSCULAR HEMOGLOBIN 2024-12-11 08:55 [facility] 29.2 pg (missing) ANION GAP 2024-12-11 08:55 [facility] 3.0 (missing ) (missing) RED BLOOD COUNT 2024-12-11 08:55 [facility] 3.39 10 6/ul (missing) CARBON DIOXIDE - CO2 2024-12-11 08:55 [facility] 34 mmol/l As of September 2022 testing method has changed, this may include reference ranges. HCT - HEMATOCRIT 2024-12-11 08:55 [facility] 34.0 % (missing) POTASSIUM 2024-12-11 08:55 [facility] 4.8 mmol/l As of September 2022 testing method has changed, this may include reference ranges. GFR - MDRD 2024-12-11 08:55 [facility] 46 (in g) The IDMS-traceable MDRD Study [...] May 2011. WHITE BLOOD COUNT 2024-12-11 08:55 [facility] 8.7 x10 3/ul (missing) MEAN PLATELET VOLUME 2024-12-11 08:55 [facility] 8.9 fl (missing) CALCIUM 2024-12-11 08:55 [facility] 8.9 mg/dl As of September 2022 testing method has changed, this may include reference ranges. GLUCOSE 2024-12-11 08:55 [facility] 85 mg/dl As of September 2022 testing method has changed, this may include reference ranges. HGB - HEMOGLOBIN 2024-12-11 08:55 [facility] 9.9 g /dl (missing) Result panel 8 NUCLEATED RED BLOOD CELLS AUTO 2025-01-16 09:17 [facility] 0.0 /100wbc (missing) BASOPHILS # (AUTO) 2025-01-16 09:17 [facility] 0.0 10 3/ul (missing) EOSINOPHILS # (AUTO) 2025-01-16 09:17 [facility] 0.0 10 3/ul (missing) NRBC ABSOLUTE COUNT (AUTO) 2025-01-16 09:17 [facility] 0.00 x10 3/ul (missing) BILIRUBIN,TOTAL 2025-01-16 09:17 [facility] 0.5 mg/dl As of September 2022 testing method has changed, this may include reference ranges. ALBUMIN/GLOBULIN RATIO 2025-01-16 09:17 [facility] 0.9 (missing) (missing) LYMPHOCYTES # (AUTO) 2025-01-16 09:17 [facility] 1.1 10 3/ul (missing) CREATININE 2025-01-16 09:17 [facility] 1.3 mg/dl As of September 2022 testing method has changed, this may include reference ranges. MONOCYTES # (AUTO) 2025-01-16 09:17 [facility] 1.6 10 3/ul (missing) MAGNESIUM 2025-01-16 09:17 [facility] 1.8 mg/dl As of September 2022 testing method has changed, this may include reference ranges. HGB - HEMOGLOBIN 2025-01-16 09:17 [facility] 11.0 g/dl (missing) WHITE BLOOD COUNT 2025-01-16 09:17 [facility] 11.9 x10 3/ul (missing) GLUCOSE 2025-01-16 09:17 [facility] 114 mg/dl As of September 2022 testing method has changed, this may include reference ranges. AST ASPARTATE AMINOTRANSFERASE 2025-01-16 09:17 [facility] 12 iu/l As of September 2022 testing method has changed, this may include reference ranges. PLT - PLATELET COUNT 2025-01-16 09:17 [facility] 135 10 3/ul (missing) SODIUM 2025-01-16 09:17 [facility] 137 mmol/l (missing) RED CELL DISTRIBUTION WIDTH 2025-01-16 09:17 [facility] 14.9 % (missing) RBC MORPHOLOGY (MULTIPLE) 2025-01-16 09:17 [facility] 2+ ANISOCYTOSIS (missing) (missing) ANION GAP 2025-01-16 09:17 [facility] 2.0 (missing) (missing) MEAN CORPUSCULAR HEMOGLOBIN 2025-01-16 09:17 [facility] 29.3 pg (missing) ALBUMIN 2025-01-16 09:17 [facility] 3.6 g/dl As of September 2022 testing method has changed, this may include reference ranges. RED BLOOD COUNT 2025-01-16 09:17 [facility] 3.75 10 6/ul (missing) GLOBULIN 2025-01-16 09:17 [facility] 3.8 g/dl (missing) BUN - BLOOD UREA NITROGEN 2025-01-16 09: [facility] 30 mg/dl As of September 2022 testing method has changed, this may include reference ranges. MEAN CORPUSCULAR HGB CONC 2025-01-16 09:17 [facility] 30.0 g/dl (missing) CARBON DIOXIDE - CO2 2025-01-16:17 [facility] 36 mmol/l As of September 2022 testing method has changed, this may include reference ranges. HCT - HEMATOCRIT 2025-01-16 09:17 [facility] 36.7 % (missing) POTASSIUM 2025-01-16 09:17 [facility] 4.7 mmol/l As of September 2022 testing method has changed, this may include reference ranges. GFR - MDRD 2025-01-16 09:17 [facility] 42 (missing) The IDMS-traceable MDRD Study Equation [...] updated May 2011. ALKALINE PHOSPHATASE 2025-01-16 09:17 [facility] 51 iu/l As of September 2022 testing method has changed, this may include reference ranges. ALT ALANINE AMINOTRANSFERASE 2025-01-16 09:17 [facility] 6 iu/l As of September 2022 testing method has changed, this may include reference ranges. TOTAL PROTEIN 2025-01-16 09:17 [facility] 7.4 g/dl As of September 2022 testing method has changed, this may include reference ranges. NEUTROPHILS # (AUTO) 2025-01-16 09: [facility] 9.1 10 3/ul (missing) CALCIUM 2025-01-16 09:17 [facility] 9.1 mg/dl As of September 2022 testing method has changed, this may include reference ranges. MEAN PLATELET VOLUME 2025-01-16 09: [facility] 9.7 fl (missing) MEAN CORPUSCULAR VOLUME 2025-01-16: [facility] 97.9 fl (missing) CHLORIDE 2025-01-16:17 [facility] 99 mmol/l As of September 2022 testing method has changed, this may include reference ranges. SLIDE REVIEW? 2025-01-16 09:17 [facility] Indicated (missing) (missing) Result panel 9 WBC,URINE 2025-01-16 09:25 [facility] >25 /hpf (missing) UROBILINOGEN,URI NE 2025-01-16 09:25 [facility] 0.2 (NORMAL) e.u./dl (missing) SPECIFIC GRAVITY,URINE 2025-01-16 09:25 [facility] 1.010 (missing ) (missing) PROTEIN,URINE 2025-01-16 09:25 [facility] 100 mg/dl (missing) CUL, URINE 2025-01-16 09:25 [facility] 100>100,000 CFU/mL (missing ) (missing) RBC,URINE 2025-01-16 09:25 [facility] 6-10 /hpf (missing) PH,URINE 2025-01-16 09:25 [facility] 8.0 ph (missing) SQUAMOUS EPITHELIAL CELL,UR 2025-01-16 09:25 [facility] FEW Squamous (missing ) (missing) CUL, URINE 2025-01-16 09:25 [facility] GNRGRAM NEGATIVE PEARL TO BE FURTHER IDENTIFIED (missing ) (missing) CLARITY,URINE 2025-01-16 09:25 [facility] HAZY (missing ) (missing) CUL, URINE 2025-01-16 09:25 [facility] IDMIC.1ORG 1 ID/OSITO COM* (missing ) (missing) UR CULTURE IF IND 2025-01-16 09:25 [facility] INDICATED (missing ) (missing) URINE MICROSCOPIC INDICATED? 2025-01-16 09:25 [facility] INDICATED (missing ) (missing) LEUKOCYTE ESTERASE, URINE 2025-01-16 09:25 [facility] LARGE (missing ) (missing) OCCULT BLOOD,URINE 2025-01-16 09:25 [facility] MODERATE (missing ) (missing) BACTERIA,URINE 2025-01-16 09:25 [facility] Many /hpf (missing) BILIRUBIN,URINE 2025-01-16 09:25 [facility] NEGATIVE (missing ) Bilirubin can be influenced by color interference. Please correlate positive results with clinical presentation GLUCOSE, URINE (UA) 2025-01-16 09:25 [email or web address] NEGATIVE mg/dl (missing) KETONES,URINE (UA) 2025-01-16 09:25 [facility] NEGATIVE mg/dl (missing) CUL, URINE 2025-01-16 09:25 [facility] ORG.1PRELIM ORG ID* (missing ) (missing) NITRITE,URINE 2025-01-16 09:25 [facility] POSITIVE (missing ) (missing) CUL, URINE 2025-01-16 09:25 [facility] Pending (missing ) (missing) CUL, URINE 2025-01-16 09:25 [facility] UCC.1ORG 1 CC* (missing ) (missing) COLOR,URINE 2025-01-16 09:25 [facility] YELLOW (missing ) URINE CATHETERIZED CUL, URINE 2025-01-16 09:25 [facility] YIDENTIFICATION AND SENSITIVITIES TO FOLLOW (missing ) (missing) Result panel 10 SARS-CoV-2 -RESP PCR PANEL 2025-01-16 09:27 [facility] NOT DETECTED (missing) A negative test result [...] virus. INFLUENZA A- RESP PCR PANEL 2025-01-16: [facility] NOT DETECTED (missing) Influenza A including subtypes H1, H3, and H1-2009 not detected by the [employer] RP2.1 Panel, a multiplexed nucleic acid test intended for the simultaneous qualitative detection and differentiation of nucleic acids from multiple viral and bacterial respiratory organisms. B. PARAPERTUSSIS- RESP PCR FLYNN 2025-01-16 09:27 [facility] NOT DETECTED (missing) Negative results for this organism do not preclude infection with this organism and may require additional laboratory testing (e.g., bacterial and viral culture, immunofluorescence, and radiography) when evaluating a patient with possible respiratory tract infection. B. PERTUSSIS- RESP PCR PANEL 2025-01-16: [facility] NOT DETECTED (missing) Negative results for this organism do not preclude infection with this organism and may require additional laboratory testing (e.g., bacterial and viral culture, immunofluorescence, and radiography) when evaluating a patient with possible respiratory tract infection. C. PNEUMONIAE- RESP PCR PANEL 2025-01-16:27 [facility] NOT DETECTED (missing) Negative results for this organism do not preclude infection with this organism and may require additional laboratory testing (e.g., bacterial and viral culture, immunofluorescence, and radiography) when evaluating a patient with possible respiratory tract infection. M. PNEUMONIAE- RESP PCR PANEL 2025-01-16:27 [facility] NOT DETECTED (missing) Negative results for this organism do not preclude infection with this organism and may require additional laboratory testing (e.g., bacterial and viral culture, immunofluorescence, and radiography) when evaluating a patient with possible respiratory tract infection. CORONAVIRUS 229E-RESP PCR 2025-01-16:27 [facility] NOT DETECTED (missing) Negative results in the [...] not be detected by nasopharyngeal specimen. CORONAVIRUS [id number] PCR 2025-01-16 09:27 [facility] NOT DETECTED (missing) Negative results in the setting ofa respiratory illness may be due to infection with pathogens not detected by this test, or lower respiratory tract infection that may not be detected by nasopharyngeal specimen. CORONAVIRUS [id number] PCR 2025-01-16 09:27 [facility] NOT DETECTED [...] nasopharyngeal specimen. PARAINFLUENZA VIRUS 4 2025-01-16 09:27 [facility] NOT DETECTED (missing) Negative results in the setting ofa respiratory illness may be due to infection with pathogens not detected by this test, or lower respiratory tract infection that may not be detected by nasopharyngeal specimen. RHINOVIRUS/ENTEROVI [place] 2025-01-16 09:27 [facility] NOT DETECTED (missing) Negative results in the setting ofa respiratory illness may be due to infection with pathogens not detected by this test, or lower respiratory tract infection that may not be detected by nasopharyngeal specimen. RSV- RESP PCR PANEL 2025-01-16 09:27 [facility] NOT DETECTED (missing) Negative results in the setting ofa respiratory illness may be due to infection with pathogens not detected by this test, or lower respiratory tract infection that may not be detected by nasopharyngeal specimen. ADENOVIRUS - RESP PCR PANEL 2025-01-16 09:27 [facility] NOT DETECTED (missing) YES Y NO NO NO NO YES NO Negative results in the setting ofa respiratory illness may be due to infection with pathogens not detected by this test, or lower respiratory tract infection that may not be detected by nasopharyngeal specimen. Result panel 11 NUCLEATED RED BLOOD CELLS AUTO 2025-01-17 16:14 [facility] 0.0 /100wbc (missing) BASOPHILS # (AUTO) 2025-01-17 16:14 [facility] 0.0 10 3/ul (missing) NRBC ABSOLUTE COUNT (AUTO) 2025-01-17 16:14 [facility] 0.00 x10 3/ul (missing) EOSINOPHILS # (AUTO) 2025-01-17 16:14 [facility] 0.1 10 3/ul (missing) BILIRUBIN,TOTAL 2025-01-17 16:14 [facility] 0.4 mg/dl As of September 2022 testing method has changed, this may include reference ranges. LYMPHOCYTES # (AUTO) 2025-01-17 16:14 [facility] 0.8 10 3/ul (missing) LACTIC ACID, VENOUS 2025-01-17 16:14 [facility] 0.8 mmol/l N As of September 2022 testing method has changed, this may include reference ranges. ALBUMIN/GLOBULIN RATIO 2025-01-17 16:14 [facility] 0.9 (missing) (missing) MONOCYTES # (AUTO) 2025-01-17 16:14 [facility] 1.4 10 3/ul (missing) CREATININE 2025-01-17 16:14 [facility] 1.5 mg/dl As of September 2022 testing method has changed, this may include reference ranges. HGB - HEMOGLOBIN 2025-01-17 16:14 [facility] 10.8 g/dl (missing) PLT - PLATELET COUNT 2025-01-17 16:14 [facility] 106 10 3/ul (missing) WHITE BLOOD COUNT 2025-01-17 16:14 [facility] 11.1 x10 3/ul (missing) ALT ALANINE AMINOTRANSFERASE 2025-01-17 16:14 [facility] 13 iu/l As of September 2022 testing method has changed, this may include reference ranges. SODIUM 2025-01-17 16:14 [facility] 134 mmol/l (missing) RED CELL DISTRIBUTION WIDTH 2025-01-17 16:14 [facility] 15.0 % (missing) MEAN CORPUSCULAR HEMOGLOBIN 2025-01-17 16:14 [facility] 29.0 pg (missing) MEAN CORPUSCULAR HGB CONC 2025-01-17 16:14 [facility] 29.7 g/dl (missing) ALBUMIN 2025-01-17 16:14 [facility] 3.5 g/dl As of September 2022 testing method has changed, this may include reference ranges. RED BLOOD COUNT 2025-01-17 16:14 [facility] 3.72 10 6/ul (missing) AST ASPARTATE AMINOTRANSFERASE 2025-01-17 16:14 [facility] 30 iu/l As of September 2022 testing method has changed, this may include reference ranges. CARBON DIOXIDE - CO2 2025-01-17 16:14 [facility] 33 mmol/l As of September 2022 testing method has changed, this may include reference ranges. BUN - BLOOD UREA NITROGEN 2025-01-17 16:14 [facility] 35 mg/dl As of September 2022 testing method has changed, this may include reference ranges. GFR - MDRD 2025-01-17 16:14 [employer] 36 (missing) The IDMS-traceable MDRD Study Equation has [...] ation/gfr/creatin ine-stand ardization, last updated May 2011. HCT - HEMATOCRIT 2025-01-17 16:14 [facility] 36.4 % (missing) GLOBULIN 2025-01-17 16:14 [facility] 4.0 g/dl (missing) POTASSIUM 2025-01-17 16:14 [facility] 5.2 mmol/l As of September 2022 testing method has changed, this may include reference ranges. ANION GAP 2025-01-17 16:14 [facility] 6.0 (missing) (missing) ALKALINE PHOSPHATASE 2025-01-17 16:14 [facility] 64 iu/l As of September 2022 testing method has changed, this may include reference ranges. TOTAL PROTEIN 2025-01-17 16:14 [facility] 7.5 g/dl As of September 2022 testing method has changed, this may include reference ranges. NEUTROPHILS # (AUTO) 2025-01-17 16:14 [facility] 8.9 10 3/ul (missing) CALCIUM 2025-01-17 16:14 [facility] 9.0 mg/dl As of September 2022 testing method has changed, this may include reference ranges. MEAN PLATELET VOLUME 2025-01-17 16:14 [facility] 9.7 fl (missing) GLUCOSE 2025-01-17 16:14 [facility] 92 mg/dl As of September 2022 testing method has changed, this may include reference ranges. CHLORIDE 2025-01-17 16:14 [employer] [facility] 95 mmol/l As of September 2022 testing method has changed, this may include reference ranges. MEAN CORPUSCULAR VOLUME 2025-01-17 16:14 [facility] 97.8 fl (missing) Social History date description facility
[2025-01-17] MEDS ORDERED: ACETAMINOPHEN 500 MG TABLET PO PRN (17:51)
[2025-01-17] MEDS ORDERED: ONDANSETRON ODT 4 MG TABLET TL PRN (17:51)
[2025-01-17] MEDS ORDERED: tiZANidine 4 MG TABLET PO PRN (17:51)
[2025-01-17] MEDS ORDERED: SODIUM CHLORIDE FLUSH 0.9% 10 ML SYRINGE IVP PRN (17:51)
[2025-01-17] MEDS: ACETAMINOPHEN 325 MG TABLET PO SCH (18:13)
[2025-01-17] MEDS: SODIUM ZIRCONIUM CYCLOSILICATE 5 GM PACKET PO ONE (18:14)
[2025-01-17] MEDS: oxyCODONE 5 MG TABLET PO PRN (18:59)
[2025-01-17] MEDS: ONDANSETRON 4 MG/2 ML VIAL IVP PRN (18:59)
[2025-01-17] MEDS: PREGABALIN 100 MG CAPSULE PO SCH (20:40)
[2025-01-17] MEDS: PREGABALIN 25 MG CAPSULE PO SCH (20:41)
[2025-01-17] MEDS: HEPARIN 5,000 UNIT/ML VIAL SUBQ SCH (20:41)
[2025-01-17] MEDS: DIVALPROEX DR 250 MG TABLET PO SCH (20:41)
[2025-01-18] MEDS: SODIUM CHLORIDE FLUSH 0.9% 10 ML SYRINGE IVP SCH
[2025-01-18] MEDS: MEROPENEM 1 GM in SODIUM CHLORIDE 0.9% MINIBAG 100 ML IV SCH
--- NOTE | 2025-01-18 00:35 | PROVIDER PROGRESS NOTE ---
Dip Stand Loader Note Dip Stand Loader Note Dip Stand Loader Note: per nurse: "Dx: Sepsis, Pyelonephritis. Patient hard to arouse. She only opens her eyes briefly. She received trazadone 300mg and Seroquel 300mg at bedtime. BP 89/53, HR 112, 93% on RA. Merrem IV is currently infusing. Patient bp on trendelenburg position is 104/55." Discussed with nurse. This is her first dose of those medications. patient is lethargic, she is arousable.
[2025-01-18] MEDS: SODIUM CHLORIDE 0.9% 500 ML IV ONE (00:44)
[2025-01-18] MEDS: SODIUM CHLORIDE 0.9% 1,000 ML IV SCH (01:20)
[2025-01-18] MEDS: BUDESONIDE 0.5 MG/2 ML NEB INH SCH (02:31)
[2025-01-18] MEDS: FORMOTEROL FUMARATE NEB 20 MCG/2 ML INH SCH (02:31)
[2025-01-18 05:35] LABS: HCT - HEMATOCRIT 35.0 % (37.0-47.0); HGB - HEMOGLOBIN 10.2 g/dL (12.0-16.0); MEAN PLATELET VOLUME 9.9 fL (7.9-10.8); PLT - PLATELET COUNT 85 10^3/uL (130-450); RED CELL DISTRIBUTION WIDTH 15.5 % (12.0-15.0)
[2025-01-18 05:39] LABS: ABNORMAL LYMPHS % (MANUAL) 0 %; BAND NEUTROPHILS % (MANUAL) 0 %; BASOPHILS # (MANUAL) 0.0 10^3/uL (0-0.1)
[2025-01-18 05:50] LABS: BUN - BLOOD UREA NITROGEN 35.0 mg/dL (6-20); CARBON DIOXIDE - CO2 33.0 mmol/L (21-32); CREATININE 1.7 mg/dL (0.6-1.3); GFR - MDRD 31.0 (>89)
[2025-01-18 05:55] LABS: EOSINOPHILS # (MANUAL) 0.1 10^3/uL (0-0.7); LYMPHOCYTES # (MANUAL) 0.8 10^3/uL (1.5-3.5); LYMPHOCYTES % (MANUAL) 7 %; MONOCYTES # (MANUAL) 1.1 10^3/uL (0.0-1.0); NEUTROPHILS # (MANUAL) 10.0 10^3/uL (1.5-6.6); PLATELET ESTIMATE, MANUAL DECREASED (<130,000) (NORMAL); PLATELET MORPHOLOGY NORMAL APPEARANCE (NORMAL); RBC MORPHOLOGY (MULTIPLE) NORMAL APPEARANCE (NORMAL); WBC MORPHOLOGY (MULTIPLE) NORMAL APPEARANCE (NORMAL)
--- NOTE | 2025-01-18 10:27 | PROVIDER PROGRESS NOTE ---
Subjective Prog Note Date Prog Note Date: 06/09/24 Prog Note Time: 09:50 Subjective Pt reports feeling: Improved Subjective: Tere Lopez is a 54 y/o woman with hx of bipolar, PTSD, anxiety, COPD on 2L home oxygen, T2DM, and recurrent UTIs admitted for sepsis secondary to UTI yesterday. Received a dose of IV rocephin in the ED and went home on 7-day course of Keflex, returned to the ED the following day however d/t worsening fever and altered mental status despite treatment. Given her ESBL hx, was started on meropenem. Blood cultures were obtained. Urine culture and susceptibilities remain pending. CT AP without contrast revealed possible R sided pyelonephritis. No calcific stones or evidence of obstruction. Today, she is alert and eating upright in bed. Earlier in the morning she was difficult to awaken, groggy - she reports this happens frequently and attributes to her multiple psych medications. Feels tired at baseline, falls asleep easily throughout the day. Otherwise she has no other complaints. Other than the one incidence of urinary incontinence few days ago preceding her fall, she has not had any urinary frequency, urgency, or suprapubic pain. She does endorse L sided back pain, consistent with the side she fell, otherwise feeling well. No n/v, cough, chest pain. She did have urinary retention today, required straight catheterization x2 with output of ~500mL each time. Current Medications Current Medications Current Medications: Current Medications Generic Name Dose Route Start Last Admin Trade Name Freq PRN Reason Stop Dose Admin Acetaminophen 500 mg 01/17/25 17:51 Acetaminophen 500 Mg Tablet PO QID PRN fever or pain Acetaminophen 650 mg 01/17/25 18:00 01/18/25 05:14 Acetaminophen 325 Mg Tablet PO Not Given Q6H RUBÉN Albuterol 2.5 mg 01/17/25 17:58 Albuterol Neb 2.5 Mg/3 Ml INH RTQ4H PRN Wheezing Budesonide 0.5 mg 01/17/25 19:00 01/18/25 08:36 Budesonide 0.5 Mg/2 Ml Neb INH Not Given RTBID RUBÉN Citalopram Hydrobromide 20 mg 01/18/25 09:00 Citalopram Hydrobromide 20 Mg Tablet PO DAILY RUBÉN Divalproex Sodium 250 mg 01/17/25 21:00 01/17/25 20:[address] 250 Mg Tablet PO 250 mg BID RUBÉN Administration Formoterol Fumarate 20 mcg 01/17/25 19:00 01/18/25 08:37 Formoterol Fumarate Neb 20 Mcg/2 Ml INH Not Given RTBID RUBÉN Heparin Sodium (Porcine) 5,000 unit 01/17/25 21:00 01/17/25 20:41 Heparin 5,000 Unit/Ml Vial SUBQ 5,000 unit BID RUBÉN Administration Meropenem 1 gm/ Sodium 100 mls @ 200 mls/hr 01/18/25 00:00 01/18/25 10:22 Chloride IV 200 mls/hr Q8H RUBÉN Administration Sodium Chloride 1,000 mls @ 100 mls/hr 01/18/25 01:00 01/18/25 01:20 Normal Saline 0.9% IV 100 mls/hr .Q10H RUBÉN Administration Ondansetron HCl 4 mg 01/17/25 17:51 Ondansetron Odt 4 Mg Tablet TL Q6HR PRN Nausea / Vomiting Ondansetron HCl 4 mg 01/17/25 17:51 01/17/25 18:59 Ondansetron 4 Mg/2 Ml Vial IVP 4 mg Q6HR PRN Administration Nausea / Vomiting Oxycodone HCl 5 mg 01/17/25 17:51 01/17/25 18:59 Oxycodone 5 Mg Tablet PO 5 mg Q4HR PRN Administration Pain 5 to 7 Oxycodone HCl 10 mg 01/17/25 17:51 Oxycodone 5 Mg Tablet PO Q4HR PRN Pain 8 to 10 Pregabalin 100 mg 01/17/25 21:00 01/17/25 20:40 Pregabalin 100 Mg Capsule PO 100 mg BID RUBÉN Administration Pregabalin 50 mg 01/17/25 21:00 01/17/25 20:41 Pregabalin 25 Mg Capsule PO 50 mg BID RUBÉN Administration Quetiapine Fumarate 300 mg 01/17/25 21:00 01/17/25 20:40 Quetiapine 100 Mg Tablet PO 300 mg HS RUBÉN Administration Sodium Chloride 10 ml 01/17/25 17:51 Sodium Chloride Flush 0.9% 10 Ml Syringe IVP PRN PRN NEEDED PER PROVIDER ORDERS Sodium Chloride 10 ml 01/18/25 01:00 01/18/25 00:00 Sodium Chloride Flush 0.9% 10 Ml Syringe IVP 10 ml 0100,0900,1700 RUBÉN Administration Trazodone HCl 300 mg 01/17/25 21:00 01/17/25 20:40 Trazodone 50 Mg Tablet PO 300 mg HS RUBÉN Administration Objective Vital Signs/Intake & Output Reviewed Vital Signs: Yes Vital Signs: Vital Signs x48h Temp Pulse Resp BP BP Pulse Ox O2 Flow Rate 01/18/25 10:23 2 01/18/25 09:14 36.7 C 90 16 133/71 H 92 2 01/18/25 07:56 37 C 113 H 20 125/74 90 L 2 01/18/25 06:23 95 126/70 01/18/25 03:57 102 H 112/66 Intake & Output: Intake & Output 01/15/25 01/16/25 01/17/25 01/18/25 23:59 23:59 23:59 23:59 Intake Total 1600 / 1600 600 / 600 Output Total 700 / 700 Balance 1600 / 1600 -100 / -100 Weight (kg) 123.5 kg Objective Comments/Other: Gen: Eating, pleasant, occasionally drifting off during conversation, awakens with prodding. Appears older than stated age. No acute distress. Heent: Normocephalic/atraumatic, normal appearance of external ears and nose. Cardiac: Regular rate and rhythm. No murmurs appreciated. No visible JVP elevation. Equal radial pulses 2+ Pulm: Normal respirations without increased effort. Clear to auscultation throughout without wheezes, rales or rhonchi. Abdomen: Soft, rounded, nontender. No rebound tenderness or guarding. Back: Nonfocal tenderness over the L mid back, otherwise without spinal tenderness. No exquisite CVA tenderness. Extremities: Moves all 4 extremities equally. Normal tone. Neuro: A&Ox4. Face symmetric, CN II through XII intact grossly. No focal neurologic deficits. Psych: Mood euthymic with congruent affect. Good fund of knowledge. Judgment intact. Lab Results 01/18/25 05:29 01/18/25 05:29 Other Labs: Lab Results x24hrs 01/18/25 01/18/25 01/17/25 Range/Units 05:29 00:08 16:14 WBC 12.0 H 11.1 H (4.8-10.8) x10^3/uL RBC 3.48 L 3.72 L (4.20-5.40) 10^6/uL Hgb 10.2 L 10.8 L (12.0-16.0) g/dL Hct 35.0 L 36.4 L (37.0-47.0) % MCV 100.6 H 97.8 (81.0-99.0) fL MCH 29.3 29.0 (27.0-31.0) pg MCHC 29.1 L 29.7 L (32.0-36.0) g/dL RDW 15.5 H 15.0 (12.0-15.0) % Plt Count 85 L 106 L (130-450) 10^3/uL MPV 9.9 9.7 (7.9-10.8) fL Neut # (Auto) Not Reportable 8.9 H (1.5-6.6) 10^3/uL Lymph # (Auto) Not Reportable 0.8 L (1.5-3.5) 10^3/uL [place] # (Auto) Not Reportable 1.4 H (0.0-1.0) 10^3/uL Eos # (Auto) Not Reportable 0.1 (0.0-0.7) 10^3/uL Baso # (Auto) Not Reportable 0.0 (0.0-0.1) 10^3/uL Absolute Nucleated RBC Not Reportable 0.00 x10^3/uL Total Counted 100 Band Neuts % (Manual) 0 (0 - 10) % Abnorm Lymph % (Manual) 0 % Nucleated RBC % Not Reportable 0.0 /100WBC Neutrophils # (Manual) 10.0 H (1.5-6.6) 10^3/uL Lymphocytes # (Manual) 0.8 L (1.5-3.5) 10^3/uL Monocytes # (Manual) 1.1 H (0.0-1.0) 10^3/uL Eosinophils # (Manual) 0.1 (0-0.7) 10^3/uL Basophils # (Manual) 0.0 (0-0.1) 10^3/uL Differential Comment MANUAL DIFFERENTIAL WBC Morphology NORMAL APPEARANCE (NORMAL) Platelet Estimate DECREASED (<130,000) (NORMAL) Platelet Morphology NORMAL APPEARANCE (NORMAL) RBC Morph Micro Appear NORMAL APPEARANCE (NORMAL) Sodium 136 134 L (135-145) mmol/L Potassium 4.3 5.2 H (3.5-4.5) mmol/L Chloride 100 L 95 L (101-111) mmol/L Carbon Dioxide 33 H 33 H (21-32) mmol/L Anion Gap 3.0 L 6.0 (6-13) BUN 35 H 35 H (6-20) mg/dL Creatinine 1.7 H 1.5 H (0.6-1.3) mg/dL Estimated GFR (MDRD) 31 L 36 L (>89) Glucose 104 92 (74-104) mg/dL POC Whole Bld Glucose 115 (70-100) mg/dL Lactic Acid 0.8 (0.5-2.2) mmol/L Calcium 8.2 L 9.0 (8.5-10.3) mg/dL Total Bilirubin 0.4 (0.2-1.0) mg/dL AST 30 (10-42) IU/L ALT 13 (10-60) IU/L Alkaline Phosphatase 64 (42-121) IU/L Total Protein 7.5 (6.4-8.9) g/dL Albumin 3.5 (3.2-5.5) g/dL Globulin 4.0 (2.1-4.2) g/dL Albumin/Globulin Ratio 0.9 L (1.0-2.2) 01-16-2025 UA with pyuria, positive LE and nitrates with many bacteria. Moderate blood. Positive for GNR >100K, awaiting culture and susceptibilites Review of micro: Urine 06-07-2024 Foss-sensitive E.coli Urine 04-11-2024 ESBL E.coli Diagnostic Imaging Diagnostic Imaging Results: positive Final report reviewed Diagnostic Imaging Comments: CT A/P without contrast 01-17-2025 shows abnormal contours of both kidneys similar when compared to prior 01-19-2022 with contrast. Formal read indicates The right kidney appears to be likely acutely inflamed. There is likely right pyelonephritis. There is no hydronephrosis. ABX Reporting Has patient been on IV antibiotics over the past 48 hours?: Yes Sepsis Event Note (H) Evaluation Current Stage of Sepsis: Resolved Possible source of Sepsis: positive Genitourinary Confirmed Source and Organism (if known) of Sepsis: UTI, GNR awaiting culture and sensitivities Assessment/Plan Problem List (1) Sepsis: Qualifiers: Sepsis acute organ dysfunction status: without acute organ dysfunction Sepsis type: sepsis due to unspecified organism Qualified Code(s): A41.9 - Sepsis, unspecified organism (2) Pyelonephritis: Impression: Clinically improved on meropenem. Remains afebrile and non-toxic. Normal lactate and 10-20 blood culture remains negative. Awaiting urine culture and susceptibilities. Given her septic presentation with tachycardia, tachypnea, fever and known UTI with suggestive perinephric stranding on CT AP, will treat as R pyelonephritis. No obstructing stone or hydronephrosis. - Continue meropenem q8hrs, given history of ESBL - Follow-up urine culture and sensitivities, blood cultures - CBC and BMP a.m (3) Stage 3a chronic kidney disease (CKD): Impression: Patient with known history of chronic kidney disease. Came in with creatinine of 1.5, now 1.7, up from her baseline between 1.0 and 1.3. Urinary retention today, needed straight catheterization. Suspect she may have some mild ATN from her infection, dehydration. - Monitor urine output, may consider odell if persistent retention - Hold all NSAIDs - Encourage oral hydration - BMP a.m. (4) Thrombocytopenia: Impression: Plt 135-> 85. Suspect HIT. No signs of active bleeding. -Stop heparin. -Consider stopping ibuprofen if continues to decline (5) Hyperkalemia: Impression: Resolved. Potassium 5.2 on arrival. History of chronic mild hyperkalemia, likely associated with her CKD. - Monitor EKG, if progression will give calcium gluconate - BMP a.m. (6) COPD (chronic obstructive pulmonary disease): Qualifiers: COPD type: unspecified COPD Qualified Code(s): J44.9 - Chronic obstructive pulmonary disease, unspecified (7) Chronic respiratory failure: Impression: Per her records, she may be on 2 L continuously per her recommendation however she states to her primary care doctor that she uses her oxygen as needed. On regular inhalers for COPD - Continue oxygen as needed, goal saturation 88 to 92% - Continue home inhalers - Albuterol prn Qualifiers: Respiratory failure complication: hypoxia Qualified Code(s): J96.11 - Chronic respiratory failure with hypoxia (8) Bipolar 2 disorder: (9) PTSD (post-traumatic stress disorder): (10) Generalized anxiety disorder: Impression: Patient is on multiple psychiatric medications including valproate 250 mg, quetiapine 300 mg, trazodone 300 mg. - Continue citalopram and the valproate - Continue quetiapine and trazodone nightly - Delirium precautions (11) Closed fracture of left distal fibula: Qualifiers: Encounter type: subsequent encounter Fracture morphology: other fracture Fracture healing: with routine healing Qualified Code(s): S82.832D - Other fracture of upper and lower end of left fibula, subsequent encounter for closed fracture with routine healing (12) Chronic pain: Impression: Patient with recent distal nonoperative left fibula fracture. She is not having much pain from her ankle. She also takes multiple pain medications for chronic pain, fibromyalgia. As above, NSAIDs contraindicated in her renal state. - Scheduled Tylenol every 6 hours - Continue Lyrica 150 mg p.o. twice daily - Topical diclofenac - Holding tizanidine as it makes her more drowsy. Qualifiers: Chronic pain type: other chronic pain Qualified Code(s): G89.29 - Other chronic pain (13) DM2 (diabetes mellitus, type 2): Impression: A1C 5.9. Glucose has been <120 during hospital stay. No insulin needed. - Monitor Qualifiers: Diabetes mellitus complication status: with other specified complication Diabetes mellitus rodent exterminator insulin use: unspecified rodent exterminator insulin use status Qualified Code(s): E11.69 - Type 2 diabetes mellitus with other specified complication (14) Wheelchair dependent: Impression: Supportive care.
[2025-01-18] MEDS: CITALOPRAM HYDROBROMIDE 20 MG TABLET PO SCH (10:57)
--- NOTE | 2025-01-18 12:32 | PHARMACY PROGRESS NOTE ---
Best Possible Medication History Admit Date and Time: 01/17/25 1701 Home Medications Medication Instructions Recorded Confirmed Type budesonide-formoterol HFA 80 1 inh inhalation BID #10. 2 grams 02/04/24 01/18/25 Rx mcg-4.5 mcg/actuation aerosol inhaler (Breyna) ibuprofen 600 mg tablet (IBU) 600 mg PO Q6H PRN pain 0 04/12/24 01/18/25 History quetiapine 300 mg tablet 300 mg PO HS 04/12/24 History trazodone 300 mg tablet 300 mg PO HS 04/12/24 History albuterol sulfate 90 mcg/actuation 1 - 2 puff inhalati on Q4HR PRN 05/06/24 01/18/25 Rx aerosol inhaler (Ventolin HFA) Shortness Of Air/Wheezi ng #1 ea divalproex 250 mg tablet,delayed 250 mg PO BID #180 ta bs 08/30/24 01/18/25 Rx release acetaminophen 500 mg tablet 500 mg PO QID PRN fever or pain 12/04/24 01/18/25 History (Tylenol Extra Strength) tizanidine 4 mg capsule 4 mg PO Q8H PRN muscle spast icity 12/09/24 01/18/25 Rx Held on 12/11/24. #60 caps Instructions: Resume on 12/25/24. oxycodone-acetaminophen 5 mg-325 1 - 2 tab PO Q6H PRN pain 12/10/24 01/18/25 History mg tablet (Percocet) diclofenac sodium 75 mg 75 mg PO BID PRN pain 01/18/25 History tablet,delayed release pregabalin 150 mg capsule 150 mg PO BID #60 caps 12/2601/18/25 Rx cephalexin 500 mg capsule 500 mg PO BID 01/18/2501/18 History levothyroxine 25 mcg tablet 25 mcg PO DAILY 01/18/25 1 History (Euthyrox) Processed by: Pharmacy Medications reviewed in ED?: No Medication History completed: Yes Patient Interview: Pt unable to participate Secondary Source(s): Facility MAR as ONLY source (MAR from [facility]) [facility] Statement: As the person ultimately responsible for medication therapy, providers are able to order a medication from an existing home medication list in [facility] via the "Reconcile Routine" prior to Confirmation of that medication by office support assistant. Such practice is discouraged except when the physician, in their clinical judgment, deems that a medical need exists for a medication without regard to previous use.
[2025-01-18] MEDS: oxyCODONE 5 MG TABLET PO PRN (13:13)
[2025-01-18] MEDS: PRENATAL VITAMIN TABLET PO SCH (13:15)
[2025-01-18] MEDS: CHOLECALCIFEROL 25 MCG TABLET PO SCH (13:15)
--- NOTE | 2025-01-18 14:34 | PT Plan of Care ---
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 06/02/2024 Infected prosthetic hip left hip Surgical History (Updated 01/30/24 @ 14:30 by VLADIMIR Vickers) Hx of inguinal hernia repair right Hx of cholecystectomy Hx of appendectomy Hx of lithotripsy 2007 History of left hip replacement revision due to osteomyelitis, [place], 2016 Hx of bilateral hip replacements Balance/ Functional Results Sitting Balance Poor Standing Balance Unable Assessment Assessment Pt is a 54yo F referred for PT eval d/t limited mobility. Admitted with sepsis d/t UTI. Of note has recent L distal fib fx, WBAT per 01/13/25 ortho OP note. Baseline COPD 2L O2 at baseline, lives at [facility]. Complex medical hx including several orthopedic sxs, please see medical record for further PMH. Reportedly chairfast, Meena for stand pivot to wc. Cleared for eval by hospitalist. Upon PT eval, A&Ox2-3 but recently awoken and somnolent with limited cue following. Reports 10/10 pain at rest but conversational and able to participate in bed level assessment; agrees to participate. Poor to fair strength in all 4 limbs. Supine to sit on L side of bed with modAx1-2. Unable to progress mobility assessment d/t pain and fatigue. Pt may benefit from skilled PT in acute setting to progress functional mobility and upright tolerance. When medically clear, PT rec dc to SNF vs back to [facility] with increased CG support as she currently requires 2 person assist and/or lift equipment for transfers to wheelchair. Goals Improve bed mobility to: Modified Independent Improve supine to sit to: Modified Independent Improve sit to stand to: Minimal Assist Improve pivot transfer ability Minimal Assist to: Improve sit to supine to: Minimal Assist Other gait goal: pt is chairfast at baseline, no gait goals Improve Sitting Balance to: Good Improve Standing Balance to: Fair PT Plan of Care Frequency 1-2x/day Duration Until goals are met Discharge Recommendations Discharge Location SNF v [facility] Support/Services Needed With assist Other has wc Transport Needs at Discharge AnnS
[2025-01-18 16:42] LABS: VBG BASE EXCESS 7.3 mmol/L (-2 - +2); VBG PCO2 67.9 mmHg (41-51); VBG PH 7.302 (7.31-7.41); VBG PO2 79.7 mmHg (25-47); VBG TOTAL CO2 36.0 mmol/L (24-29)
[2025-01-18 20:12] LABS: VBG PCO2 69.0 mmHg (41-51); VBG PH 7.290 (7.31-7.41); VBG PO2 47.5 mmHg (25-47); VBG TOTAL CO2 35.6 mmol/L (24-29)
[2025-01-18 20:13] LABS: VBG BASE EXCESS 6.7 mmol/L (-2 - +2)
[2025-01-18 21:48] LABS: VBG BASE EXCESS 7.3 mmol/L (-2 - +2); VBG PCO2 67.1 mmHg (41-51); VBG PH 7.306 (7.31-7.41); VBG PO2 46.9 mmHg (25-47); VBG TOTAL CO2 35.9 mmol/L (24-29)
[2025-01-19 02:10] LABS: VBG BASE EXCESS 8.1 mmol/L (-2 - +2); VBG PCO2 67.9 mmHg (41-51); VBG PH 7.311 (7.31-7.41); VBG PO2 35.0 mmHg (25-47); VBG TOTAL CO2 36.6 mmol/L (24-29)
[2025-01-19 04:37] LABS: HCT - HEMATOCRIT 32.2 % (37.0-47.0); HGB - HEMOGLOBIN 9.7 g/dL (12.0-16.0); MEAN PLATELET VOLUME 10.6 fL (7.9-10.8); NRBC ABSOLUTE COUNT (AUTO) 0.00 x10^3/uL; NUCLEATED RED BLOOD CELLS AUTO 0.0 /100WBC; PLT - PLATELET COUNT 82 10^3/uL (130-450); RED CELL DISTRIBUTION WIDTH 15.1 % (12.0-15.0)
[2025-01-19 04:46] LABS: VBG BASE EXCESS 8.6 mmol/L (-2 - +2); VBG PCO2 51.2 mmHg (41-51); VBG PH 7.417 (7.31-7.41); VBG PO2 101.1 mmHg (25-47); VBG TOTAL CO2 34.9 mmol/L (24-29)
[2025-01-19] MEDS: ALBUTEROL NEB 2.5 MG/3 ML INH PRN (04:50)
[2025-01-19 04:54] LABS: BUN - BLOOD UREA NITROGEN 29.0 mg/dL (6-20); CARBON DIOXIDE - CO2 32.0 mmol/L (21-32); CREATININE 1.2 mg/dL (0.6-1.3); GFR - MDRD 46.0 (>89)
--- NOTE | 2025-01-19 08:41 | PROVIDER PROGRESS NOTE ---
Subjective Prog Note Date Prog Note Date: 01/19/25 Prog Note Time: 08:41 Subjective Pt reports feeling: Improved Subjective: Tere Lopez is a 54 y/o woman with hx of bipolar, PTSD, anxiety, COPD on 2L home oxygen, T2DM, and recurrent UTIs admitted for sepsis secondary to pyelonephritis. Course complicated by urinary retention and intermittent somnolence (suspect d/t multiple psych and pain medications). Transferred to the ICU unit for BIPAP with improved CO2 on VBG. Today she appears more alert and is sitting upright in bed. Feels less groggy and overall feeling well. No fevers or chills. Still stable on 2L NC. Still feeling neck and back pain, but tolerable and not significantly worse compared to yesterday even with the d/c of oxycodone. Continuing pregabalin and citalopram. Has odell catheter in place d/t urinary retention yesterday. Making appropriate output. Current Medications Current Medications Current Medications: Current Medications Generic Name Dose Route Start Last Admin Trade Name Freq PRN Reason Stop Dose Admin Acetaminophen 500 mg 01/17/25 17:51 Acetaminophen 500 Mg Tablet PO QID PRN fever or pain Acetaminophen 650 mg 01/17/25 18:00 01/19/25 05:55 Acetaminophen 325 Mg Tablet PO 650 mg Q6H RUBÉN Administration Albuterol 2.5 mg 01/17/25 17:58 01/19/25 04:50 Albuterol Neb 2.5 Mg/3 Ml INH 2.5 mg RTQ4H PRN Administration Wheezing Budesonide 0.5 mg 01/17/25 19:00 01/19/25 04:50 Budesonide 0.5 Mg/2 Ml Neb INH 0.5 mg RTBID RUBÉN Administration Cholecalciferol 50 mcg 01/18/25 13:00 01/19/25 08:23 Cholecalciferol 25 Mcg Tablet PO 50 mcg DAILY RUBÉN Administration Citalopram Hydrobromide 20 mg 01/18/25 09:00 01/19/25 08:22 Citalopram Hydrobromide 20 Mg Tablet PO 20 mg DAILY RUBÉN Administration Divalproex Sodium 250 mg 01/17/25 21:00 01/19/25 08:[address] 250 Mg Tablet PO 250 mg BID RUBÉN Administration Formoterol Fumarate 20 mcg 01/17/25 19:00 01/19/25 04:50 Formoterol Fumarate Neb 20 Mcg/2 Ml INH 20 mcg RTBID RUBÉN Administration Meropenem 1 gm/ Sodium 100 mls @ 200 mls/hr 01/18/25 00:00 01/19/25 08:22 Chloride IV 200 mls/hr Q8H RUBÉN Administration Ondansetron HCl 4 mg 01/17/25 17:51 Ondansetron Odt 4 Mg Tablet TL Q6HR PRN Nausea / Vomiting Ondansetron HCl 4 mg 01/17/25 17:51 01/17/25 18:59 Ondansetron 4 Mg/2 Ml Vial IVP 4 mg Q6HR PRN Administration Nausea / Vomiting Pregabalin 100 mg 01/17/25 21:00 01/19/25 08:23 Pregabalin 100 Mg Capsule PO 100 mg BID RUBÉN Administration Pregabalin 50 mg 01/17/25 21:00 01/19/25 08:22 Pregabalin 25 Mg Capsule PO 50 mg BID RUBÉN Administration Multivit/Folic Acid/Iron 1 tab 01/18/25 13:00 01/19/25 08:22 Vitamin Tablet PO 1 tab DAILYWM RUBÉN Administration Sodium Chloride 10 ml 01/17/25 17:51 Sodium Chloride Flush 0.9% 10 Ml Syringe IVP PRN PRN NEEDED PER PROVIDER ORDERS Sodium Chloride 10 ml 01/18/25 01:00 01/19/25 08:23 Sodium Chloride Flush 0.9% 10 Ml Syringe IVP 10 ml 0100,0900,1700 RUBÉN Administration Objective Vital Signs/Intake & Output Reviewed Vital Signs: Yes Vital Signs: Vital Signs x48h Temp Pulse Pulse Resp BP Pulse Ox O2 Flow Rate 01/19/25 08:00 37.3 C 90 23 130/94 H 100 2 01/19/25 07:00 2 01/19/25 07:00 37.3 C 92 17 102/64 92 2 01/19/25 06:00 37.2 C 89 16 102/68 92 2 01/19/25 05:00 37.4 C 77 18 109/67 94 2 01/19/25 05:00 2 01/19/25 04:50 2 01/19/25 04:50 76 20 2 01/19/25 04:10 2 01/19/25 04:00 37.4 C 104 H 29 H 95 10/22/25 03:07 37.4 C 81 21 107/85 91 L 01/19/25 02:36 89 01/19/25 02:24 2 01/19/25 02:24 2 01/19/25 02:00 37.5 C 87 19 133/88 H 97 4 01/19/25 01:00 4 01/19/25 01:00 37.4 C 81 18 139/84 H 96 2 Intake & Output: Intake & Output 01/16/25 01/17/25 01/18/25 01/19/25 23:59 23:59 23:59 23:59 Intake Total 1600 / 1600 3005 / 3005 950 / 950 Output Total 1805 / 1805 510 / 510 Balance 1600 / 1600 1200 / 1200 440 / 440 Weight (kg) 123.5 kg Objective Comments/Other: Gen: Sitting upright, pleasant. Appears older than stated age. No acute distress. Heent: Normocephalic/atraumatic, normal appearance of external ears and nose. Cardiac: Regular rate and rhythm. No murmurs appreciated. No visible JVP elevation. No pitting edema. Pulm: Normal respirations without increased effort. Clear to auscultation throughout without wheezes, rales or rhonchi. Abdomen: Soft, rounded, nontender. No rebound tenderness or guarding. Extremities: Moves all 4 extremities equally. Normal tone. Neuro: A&Ox4. Face symmetric, CN II through XII intact grossly. No focal neurologic deficits. Psych: Mood euthymic with congruent affect. Good fund of knowledge. Judgment intact. Skin: Warm and intact, L lower extremity ulcer covered with patch is clean and dry without surrounding erythema or tenderness. Lab Results 01/19/25 04:15 01/19/25 04:15 Other Labs: Lab Results x24hrs 01/19/25 01/19/25 01/18/25 Range/Units 04:15 01:04 21:41 WBC 6.4 12.0 H (4.8-10.8) x10^3/uL RBC 3.25 L (4.20-5.40) 10^6/uL Hgb 9.7 L (12.0-16.0) g/dL Hct 32.2 L (37.0-47.0) % MCV 99.1 H (81.0-99.0) fL MCH 29.8 (27.0-31.0) pg MCHC 30.1 L (32.0-36.0) g/dL RDW 15.1 H (12.0-15.0) % Plt Count 82 L 85 L (130-450) 10^3/uL MPV 10.6 (7.9-10.8) fL Neut # (Auto) 4.4 (1.5-6.6) 10^3/uL Lymph # (Auto) 0.8 L (1.5-3.5) 10^3/uL [place] # (Auto) 1.1 H (0.0-1.0) 10^3/uL Eos # (Auto) 0.1 (0.0-0.7) 10^3/uL Baso # (Auto) 0.0 (0.0-0.1) 10^3/uL Absolute Nucleated RBC 0.00 x10^3/uL Nucleated RBC % 0.0 /100WBC VBG pH 7.417 H 7.311 7.306 L (7.31-7.41) VBG pCO2 51.2 H 67.9 H 67.1 H (41-51) mmHg VBG pO2 101.1 H 35.0 46.9 (25-47) mmHg VBG HCO3 33.3 H 34.6 H 33.8 H (23-28) mmol/L VBG Total CO2 34.9 H 36.6 H 35.9 H (24-29) mmol/L VBG O2 Saturation 99.0 H 63.0 77.0 (60-80) % VBG Base Excess 8.6 H 8.1 H 7.3 H (-2 - +2) mmol/L Sodium 136 (135-145) mmol/L Potassium 4.1 (3.5-4.5) mmol/L Chloride 100 L (101-111) mmol/L Carbon Dioxide 32 (21-32) mmol/L Anion Gap 4.0 L (6-13) BUN 29 H (6-20) mg/dL Creatinine 1.2 (0.6-1.3) mg/dL Estimated GFR (MDRD) 46 L (>89) Glucose 121 H (74-104) mg/dL Calcium 8.5 (8.5-10.3) mg/dL Magnesium 2.1 (1.7-2.3) mg/dL Nasal Screen MRSA (PCR) (NEGATIVE) 01/18/25 01/18/25 01/18/25 Range/Units 20:04 18:22 16:35 WBC (4.8-10.8) x10^3/uL RBC (4.20-5.40) 10^6/uL Hgb (12.0-16.0) g/dL Hct (37.0-47.0) % MCV (81.0-99.0) fL MCH (27.0-31.0) pg MCHC (32.0-36.0) g/dL RDW (12.0-15.0) % Plt Count (130-450) 10^3/uL MPV (7.9-10.8) fL Neut # (Auto) (1.5-6.6) 10^3/uL Lymph # (Auto) (1.5-3.5) 10^3/uL [place] # (Auto) (0.0-1.0) 10^3/uL Eos # (Auto) (0.0-0.7) 10^3/uL Baso # (Auto) (0.0-0.1) 10^3/uL Absolute Nucleated RBC x10^3/uL Nucleated RBC % /100WBC VBG pH 7.290 L 7.302 L (7.31-7.41) VBG pCO2 69.0 H 67.9 H (41-51) mmHg VBG pO2 47.5 H 79.7 H (25-47) mmHg VBG HCO3 33.5 H 33.9 H (23-28) mmol/L VBG Total CO2 35.6 H 36.0 H (24-29) mmol/L VBG O2 Saturation 77.0 97.0 H (60-80) % VBG Base Excess 6.7 H 7.3 H (-2 - +2) mmol/L Sodium (135-145) mmol/L Potassium (3.5-4.5) mmol/L Chloride (101-111) mmol/L Carbon Dioxide (21-32) mmol/L Anion Gap (6-13) BUN (6-20) mg/dL Creatinine (0.6-1.3) mg/dL Estimated GFR (MDRD) (>89) Glucose (74-104) mg/dL Calcium (8.5-10.3) mg/dL Magnesium (1.7-2.3) mg/dL Nasal Screen MRSA (PCR) NEGATIVE (NEGATIVE) Diagnostic Imaging Diagnostic Imaging Results: positive Final report reviewed Diagnostic Imaging Comments: CT A/P without contrast 01-17-2025 shows abnormal contours of both kidneys similar when compared to prior 01-19-2022 with contrast. Formal read indicates The right kidney appears to be likely acutely inflamed. There is likely right pyelonephritis. There is no hydronephrosis. ABX Reporting Has patient been on IV antibiotics over the past 48 hours?: Yes Sepsis Event Note (H) Evaluation Current Stage of Sepsis: Resolved Possible source of Sepsis: positive Genitourinary Confirmed Source and Organism (if known) of Sepsis: UTI, GNR awaiting culture and sensitivities Assessment/Plan Problem List (1) Sepsis: Qualifiers: Sepsis acute organ dysfunction status: without acute organ dysfunction Sepsis type: sepsis due to unspecified organism Qualified Code(s): A41.9 - Sepsis, unspecified organism (2) Pyelonephritis: (3) Urinary retention: Impression: Klebsiella and ESBL E.coli R pyelonephritis, sensitive to meropenem and FQ (QTi 359). Clinically improved on meropenem, though c/b urinary retention. Odell catheter placed yesterday with appropriate output. Remains afebrile and non- toxic. Normal lactate. Blood culture NGD. Initially arrived septic with tachycardia, tachypnea, fever and known UTI. CTAP with perinephric stranding. No obstructing stone or hydronephrosis. - Continue meropenem q8hrs, plan for 5-7d treatment duration. - Will likely transition to oral levofloxacin. - Trial odell removal tomorrow. - CBC and BMP a.m (4) Acute metabolic encephalopathy: Impression: Resolved. Less somnolent compared to yesterday. Likely d/t multiple psych and pain medications. Improvement after trial of BIPAP, also holding oxycodone, quetiapine and trazodone. Respiratory acidosis resolved on repeat VBG. - Continue to monitor in the ICU - Continue to hold oxycodone, quetiapine, and trazodone for now. Will restart at lower doses. - Telepsychiatry consulted for downtitration of medications. (5) Stage 3a chronic kidney disease (CKD): Impression: Patient with known history of chronic kidney disease. Came in with creatinine of 1.5, now back at baseline of 1.2. Urinary retention today, needed straight catheterization. Suspect she may have some mild ATN from her infection, dehydration. - Monitor urine output, may consider odell if persistent retention - Hold all NSAIDs - Encourage oral hydration - BMP a.m. (6) Thrombocytopenia: Impression: Plt 135-> 85. Suspect HIT. No signs of active bleeding. -Stop heparin. (7) Hyperkalemia: Impression: Resolved. Potassium 5.2 on arrival. History of chronic mild hyperkalemia, likely associated with her CKD. - Monitor EKG, if progression will give calcium gluconate - BMP a.m. (8) COPD (chronic obstructive pulmonary disease): Qualifiers: COPD type: unspecified COPD Qualified Code(s): J44.9 - Chronic obstructive pulmonary disease, unspecified (9) Chronic respiratory failure: Impression: Per her records, she may be on 2 L continuously per her recommendation however she states to her primary care doctor that she uses her oxygen as needed. On regular inhalers for COPD - Continue oxygen as needed, goal saturation 88 to 92% - Continue home inhalers - Albuterol prn Qualifiers: Respiratory failure complication: hypoxia Qualified Code(s): J96.11 - Chronic respiratory failure with hypoxia (10) Bipolar 2 disorder: (11) PTSD (post-traumatic stress disorder): (12) Generalized anxiety disorder: Impression: Patient is on multiple psychiatric medications including valproate 250 mg, quetiapine 300 mg, trazodone 300 mg. - Continue citalopram and the valproate - Stopped quetiapine and trazodone yesterday due to altered mentation; will resume at lower doses - Telepsychiatry consulted for assistance with medication management - Delirium precautions (13) Closed fracture of left distal fibula: Qualifiers: Encounter type: subsequent encounter Fracture healing: with routine healing Fracture morphology: other fracture Qualified Code(s): S82.832D - Other fracture of upper and lower end of left fibula, subsequent encounter for closed fracture with routine healing (14) Chronic pain: Impression: Patient with recent distal nonoperative left fibula fracture. She is not having much pain from her ankle. She also takes multiple pain medications for chronic pain, fibromyalgia. As above, NSAIDs contraindicated in her renal state. - Scheduled Tylenol every 6 hours - Continue Lyrica 150 mg p.o. twice daily - Topical diclofenac - Holding oxycodone and tizanidine as it makes her more drowsy Qualifiers: Chronic pain type: other chronic pain Qualified Code(s): G89.29 - Other chronic pain (15) DM2 (diabetes mellitus, type 2): Impression: A1C 5.9. Glucose has been <120 during hospital stay. No insulin needed at this time. 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
[2025-01-19] MEDS: tiZANidine 4 MG TABLET PO STA (13:59)
[2025-01-19] MEDS: oxyCODONE 5 MG TABLET PO PRN (14:47)
--- NOTE | 2025-01-19 15:59 | TELEPSYCH PHYS NOTE ---
ITP Telepsych Consult Consult Date: 01/19/25 Name of Referring Provider:: ED Reason for Consult: Psych Eval Suicide Risk Sreening (ASQ Tool) In the past few weeks, have you wished you were ?: No In the past few weeks, have you felt that you or your family would be better off if you were ?: No In the past week, have you been having thoughts about killing yourself?: No Have you ever tried to kill yourself?: No Assessment Language: Syriac Notes: NOTES REVIEWED: hospital requesting ITP to Assist with medication down titration. Patient states feeling "drunk" all of the time. notes indicate psych and pain meds and 02 HOME MEDS AT TIME OF ADMIT quetiapine 300 mg tablet 300 mg PO HS trazodone 300 mg tablet 300 mg PO HS albuterol sulfate 90 mcg/actuation 1 - 2 puff inhalation Q4HR PRN aerosol inhaler (Ventolin HFA) Shortness Of Air/Wheezing ea divalproex 250 mg tablet,delayed 250 mg PO BID #180 tabs release citalopram 20 mg tablet 20 mg PO DAILY tabs acetaminophen MIKALA mg tablet 500 mg PO QID PRN fever or pain (Tylenol Extra Strength) tizanidine 4 mg capsule 4 mg PO Q8H PRN muscle spasticity Held on 12/11/24. caps Instructions: Resume on 12/25/24. oxycodone-acetaminophen 5 mg-325 1 - 2 tab PO Q6H PRN pain mg tablet (Percocet) diclofenac sodium 75 mg 75 mg PO BID tabletrdelayed release pregabalin 150 mg capsule 150 mg PO BID $60 caps levothyroxine 25 mcg tablet 25 mcg PO QDAY tabs (Euthyrox) cephalexin 500 mg capsule 500 mg PO BID $14 caps History of Present Illness HPI Comment/Other: Patient is a 54-year-old female who is residential at [facility] for self-care deficit. She has a history of COPD, on 2 L of 02 chronically, T2DM, PTSD, bipolar disorder, recurrent urinary tract infection, and an ankle fracture being managed nonsurgically. She was recently discharged in the hospital after being admitted for acute metabolic encephalopathy in the setting of polypharmacy with an attendant GARTH. She had a brief hospitalization, and was discharged on 12/11. She presented to the ED on 01/16 and was treated following a ground-level fall. Found to have a IJTI, and was prescribed outpatient antibiotics with ceftriaxone here and Keflex at discharge. She does have a history of ESBL from March 2024. Pansensitive E. coli in May. Other infectious history includes a left lower extremity wound which she had cultured for MSSA. Seen back in the ED today after feeling worse despite antibiotics. Persistent leukocytosis and fever and in the ED. She has frankly septic vital signs. CT of her abdomen was completed and shows nonobstructive pyelonephritis. She is not exhibiting any renal colic. On my interview, she complains of back pain and knee pain bilaterally. States these are not chronic pains for her but they are bothering her right now. She is slumped down in bed. She is eating a sandwich and Jell-O. She frequently tries to speak well eating. Chokes occasionally given poor impulse control. States she has felt unwell for several weeks. Initially had enteric symptoms including nausea and diarrhea. These have since resolved, but now she feels febrile with malaise. Denies any dysuria. States her left ankle feels reasonably well since her fracture. Appeared comfortable on exam and then reported 10/10 pain Brief goals of care conversation. She remembers her conversation with Dr. Page and the early part of this year. She agrees that she still has nobody that she would identify as a POA She has not picked anyone. She says her brother hates her. She says her nephew is an idiot. She has some friends at her assisted living facility, but would not defer to them for decisions. I encouraged her to continue thinking about this. She agrees she would want resuscitative efforts and life-sustaining treatments even if that meant staying in the hospital for an indefinite period of time. (7) Bipolar 2 disorder: (8) PTSD (post-traumatic stress disorder): plan: Patient feels like she is mostly stabilized with regard to her psychiatric history. She is on citalopram 20 mg, valproate 250 mg, quetiapine 300 mg and trazodone 300 mg. She is coping well with these medications. - Continue citalopram and the valproate - Continue quetiapine and trazodone nightly - Deliriumcautions DATE OF SERVICE- cc: NEEMA Reynolds; Maria Guadalupe Mon, [facility] report # [id number] ADDENDUM Agree with MS4 note except for outline. Patient is a 54-year-old female with a history of chronic hypoxic respiratory failure who presented with a fall, weakness. Found to be septic. Currently being treated for urinary tract infection. Urine culture growing ESBL E. coli and Klebsiella. Continue meropenem today, will likely transition to levofloxacin tomorrow. Patient had altered mentation, likely multifactorial secondary to medication overuse, as well as C02 retention. Improved with BIPAP use and holding medications. Telepsychiatry consulted for assistance with medication management. Tere Lopez is a 54 y/o woman with hx of bipolar, PTSD, anxiety, COPD on 2L home oxygen, T2DM, and recurrent LITIS admitted for sepsis secondary to pyelonephritis. Course complicated by urinary retention and intermittent somnolence (suspect d/t multiple psych and pain medications). Transferred to the [facility] unit for BIPAP with improved C02 on VBG. Today she appears more alert and is sitting upright in bed. Feels less groggy and overall feeling well. No fevers or chills. Still stable on 2L NC. Still feeling neck and back pain, but tolerable and not significantly worse compared to yesterday even with the d/c of oxycodone. Continuing pregabalin and citalopram. Has odell catheter in place d/t urinary retention yesterday. Making appropriate output. (IO) Bipolar 2 disorder: (11) PTSD (post-traumatic stress disorder): (12) Generalized anxiety disorder: Impression : Patient is on multiple psychiatric medications including valproate 250 mg, quetiapine 300 mg, trazodone 300 mg. - Continue citalopram and the valproate - Stopped quetiapine and trazodone yesterday due to altered mentation; will resume at lower doses - Telepsychiatry consulted for assistance with medication management - Delirium precautions Chief Complaint: Sedation/Medication Management History of Present Illness: Patient states they are here for "What I'd like to do is I think I'm going to start with the quetiapine and cut that down one at a time" States she is also having other meds cut down. She is falling asleep in her chair, in front of people either. She doesn't want to get rid of everything. She wants to lower her seroquel by 200mg. Says she just had her blood work done outpatient, doesn't remember her Depakote level. She does have a lot of movements, not inconsistent with TD. States normallly she can stay awake during the day, but it's been a creeping sedation problem. She likes to be up in the morning, get things done. States she does feel a little edgy now after one of her other pills was stopped, her lexapro. Or citalopram. States the reason was because of her thyroid. It was stopped cold turkey before admission. She is having withdrawal symptoms. She has not been diagnosed with TD, but says she should be. And I agree. She says her arms will jerk and throw things. It is disruptive. I can see it during interview. Suicide Ideation - Homicide Ideation - Self Harm: Above Psychiatric History - Treatment History: Providers:Does not see Psychiatry, just PCP Diagnoses:Bipolar 2 Disorder Hospitalizations: As a kid only. Suicide Attempts:When she was a teenager. Community Resources Accessed: ED Family Psych History/ History of suicide: Denies known family history of SMI or suicide. Nutritional Status: No nutritional concerns Medication & Allergies Ambulatory Orders Medication Instructions Recorded Confirmed budesonide-formoterol HFA 80 1 inh inhalation BID #10. 2 grams 02/04/24 01/18/25 mcg-4.5 mcg/actuation aerosol inhaler (Breyna) ibuprofen 600 mg tablet (IBU) 600 mg PO Q6H PRN pain 0 04/12/24 01/18/25 quetiapine 300 mg tablet 300 mg PO HS 04/12/24 trazodone 300 mg tablet 300 mg PO HS 04/12/24 albuterol sulfate 90 mcg/actuation 1 - 2 puff inhalati on Q4HR PRN 05/06/24 01/18/25 aerosol inhaler (Ventolin HFA) Shortness Of Air/Wheezi ng #1 ea divalproex 250 mg tablet,delayed 250 mg PO BID #180 ta bs 08/30/24 01/18/25 release acetaminophen 500 mg tablet 500 mg PO QID PRN fever or pain 12/04/24 01/18/25 (Tylenol Extra Strength) tizanidine 4 mg capsule 4 mg PO Q8H PRN muscle spast icity 12/09/24 01/18/25 Held on 12/11/24. #60 caps Instructions: Resume on 12/25/24. oxycodone-acetaminophen 5 mg-325 1 - 2 tab PO Q6H PRN pain 12/10/24 01/18/25 mg tablet (Percocet) diclofenac sodium 75 mg 75 mg PO BID PRN pain 01/18/25 tablet,delayed release pregabalin 150 mg capsule 150 mg PO BID #60 caps 12/2601/18/25 cephalexin 500 mg capsule 500 mg PO BID 01/18/2501/18 levothyroxine 25 mcg tablet 25 mcg PO DAILY 01/18/25 1 (Euthyrox) Allergies Allergy/AdvReac Type Severity Reaction Status Date / Time No Known Drug Allergies Allergy Verified 01/16/25 09:00 Drug & Alcohol History Does patient have Drug/ETOH history or addictive behavior?: No Trauma Does the patient have a history of trauma, abuse, neglect or explotation?: No History of trauma, abuse, neglect, or exploitation (Notes): See [facility] Personal Information Does the patient have a history or present tendencies for violence?: None History or present tendencies for violence (Notes): See [facility] Services History: N Does patient have any Legal Charges or Investigations?: No Legal Charges or Investigations (Notes): Denies Environment & Living Situation - Social, Peer-Group (Note): At home Education: Collateral - Interdisciplinary Input: Reviewed per ED and EMR notes. 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 Musculoskeletal: reports Osteoarthritis and Chronic back pain Skin: reports Psoriasis Surgical History General: reports Cholecystectomy and Other Orthopedic: reports Hip replacement and Other Family & Social History Family History Comment/Other: No known family history of SMI or suicide Living Situation: Alone Mental Status Exam Appearance and Attire: Appropriately dressed and groomed with adequate hygeine Attitude and Behavior: Cooperative Speech: wnl Affect and Mood: Mood congruent Association and Thought Process: Logical with intact association Thought Content: No suicidal or homicidal or overtly delusional content Perception: Not obviously attending Sensorium, memory and orientation: Alert, oriented, clear Intellectual - Cognitive functioning: Normal range Insight and Judgement: Intact Emotional and Behavioral Functioning: Appropriate to known or estimated baseline Ability to Self-Care: Appropriate to known or estimated baseline Personal Goals Long-term Goals: Recovery Risk/Protective Factors Risk Factors: N/A Protective Factors / Internal: N/A Protective Factors / External: N/A Plan Impression/Risk Assessment: Hypoactive Delirium vs General Adverse Medication Side Effects. Treatment - Therapy Recommendations: This is a very pleasant 54F with history of Bipolar 2 Disorder admitted with sepsis 2/2 pyelo, being seen for medication management due to intermittent sedation as well as complaint of feeling overmedicated. Seroquel and trazodone were held last night, there is no Depakote or Ammonia level on file I can find, Recommendations: * Obtain 14-hr Depakote Level and Ammonia Level. (If Ammonia is elevated, d/c Depakote, that may be the problem.) Otherwise, agree with med reductions. * Resume Seroquel at 200mg nightly. * If sleep/mood become inadequate, add an additional 50mg seroquel back. * If sedation persists, cut an additional 50mg Seroquel. * Consolidate Depakote to 500mg nightly. * Restore Citalopram at half dose, 10mg daily, to manage withdrawal. It can be tapered more as outpatient. * Trazodone can be changed to 100mg prn only, may repeat in 2 hours if needed. * If not needing any at the time of discharge, should dc at home until follow up. * Patient has TD. Consider documenting an AIMS score to support this, but it's obvious, moderate-severe range, and patient even knows it. She has never been formally diagnosed or offered treatment, and it does bother her. * Austedo/Ingrezza etc are not usually started inpatient due to non-formular y/prohibitive cost, and they take weeks to work for a non-life threatening problem. But At least her attending and any consultants perhaps could make a note of whether they would have any concerns about her trying these medications outpatient. Then she she should be set up with follow up to discuss trial. * If her PCP is comfortable with it, that is fine. Otherwise it is often a Neurology referral, though in some areas Outpatient Psychiatry will manage it, local offices would need asked which one will accept and manage TD. * Follow up with psychiatric med management/PCP within 7-10 days of discharge, and ITP can re-eval while inpatient any time if things are going the wrong direction. * Please provide written information about [phone] and local crisis stabilization resources. Pharmacological Recommendations: Acutely - she is anxious and feeling agitated/elevated. Give night meds first. If she's really not doing any better after an hour or two, could consider a one time dose of clonazepam 0.25mg repeat in 1 hour prn. But it may just be her missing her seroquel, and night meds may fix things without a benzo. Problem List (1) Sepsis: Qualifiers: Sepsis acute organ dysfunction status: without acute organ dysfunction Sepsis type: sepsis due to unspecified organism Qualified Code(s): A41.9 - Sepsis, unspecified organism (2) Pyelonephritis: (3) Urinary retention: (4) Acute metabolic encephalopathy: (5) Stage 3a chronic kidney disease (CKD): (6) Thrombocytopenia: (7) Hyperkalemia: (8) COPD (chronic obstructive pulmonary disease): Qualifiers: COPD type: unspecified COPD Qualified Code(s): J44.9 - Chronic obstructive pulmonary disease, unspecified (9) Chronic respiratory failure: Qualifiers: Respiratory failure complication: hypoxia Qualified Code(s): J96.11 - Chronic respiratory failure with hypoxia (10) Tardive dyskinesia: (11) Bipolar 2 disorder: (12) PTSD (post-traumatic stress disorder): (13) Generalized anxiety disorder: (14) Closed fracture of left distal fibula: Qualifiers: Encounter type: subsequent encounter Fracture morphology: other fracture Fracture healing: with routine healing Qualified Code(s): S82.832D - Other fracture of upper and lower end of left fibula, subsequent encounter for closed fracture with routine healing (15) Chronic pain: Qualifiers: Chronic pain type: other chronic pain Qualified Code(s): G89.29 - Other chronic pain (16) DM2 (diabetes mellitus, type 2): Qualifiers: Diabetes mellitus fdc insulin use: unspecified fdc insulin use status Diabetes mellitus complication status: with other specified complication Qualified Code(s): E11.69 - Type 2 diabetes mellitus with other specified complication (17) Wheelchair dependent: Time Spent & Provider Location Telepsych consultation conducted via videoconferencing: Yes (Complexity ) List names and roles of persons who participated in consult: Lupe Alvarez MD Telepsych Provider Location: [place] Time Spent (Minutes): 45 (Complexity) [facility] Active Problems All Active Problems (Updated 01/19/25 @ 16:52 by Lupe Alvarez MD) Tardive dyskinesia (Acute) Urinary retention (Acute) Acute metabolic encephalopathy (Acute) Thrombocytopenia (Acute) Sepsis (Acute) Pyelonephritis (Acute) Urinary tract infection (Acute) Ground-level fall (Acute) Urinary incontinence (Acute) Closed fracture of left distal fibula (Acute) Hyperlipidemia (Chronic) Marijuana dependence (Chronic) Tobacco dependence (Chronic) TSH elevation (Chronic) Fatty (change of) liver, not elsewhere classified (Chronic) Osteoporosis (Chronic) Stage 3a chronic kidney disease (CKD) (Chronic) Ankle fracture, left (Acute) Anemia (Acute) COPD (chronic obstructive pulmonary disease) (Chronic) Chronic respiratory failure (Chronic) Migraine with aura (Chronic 10/22/06) Psoriasis (Chronic 11/20/06) Right knee buckling (Chronic) Left shoulder strain (Chronic) Reactive depression (situational) (Chronic) Asthma, moderate persistent (Chronic 10/22/06) Essential (primary) hypertension (Chronic 07/13/07) Bipolar 2 disorder (Chronic) Wheelchair dependent (Chronic) Generalized anxiety disorder (Chronic) Chronic pain (Chronic) Hyperkalemia (Chronic) PTSD (post-traumatic stress disorder) (Chronic) Medical History Medical History History of compression fracture of spine T12 (see CT 01/19/2022) History of femur fracture History of fibula fracture History of humerus fracture left arm 09/17/2024 History of osteomyelitis Infected prosthetic hip left hip Metatarsal fracture Acute-subacute, oblique oriented 5th metatarsal shaft fracture. 06/02/2024 Surgical History Surgical History History of left hip replacement revision due to osteomyelitis, [place], 2016 Hx of appendectomy Hx of bilateral hip replacements Hx of cholecystectomy Hx of inguinal hernia repair right Hx of lithotripsy 2007 Family History Family History Mother Diabetes Heart failure Father Diabetes Heart failure Social History Social History (Updated 01/16/25 @ 09:07 by Prashant Ruiz, RN, BSN) Smoking Status: Current every day smoker Number of Years Smoked: 30 How many cigarettes a day do you smoke? (20 cigarettes=1 Pk): 20 Do you dip or chew tobacco?: No Do you vape?: No Patient requests smoking cessation consult: No Initiate information on smoking cessation: No Living arrangement: Assisted living Marital Status: Single Living Condition: Alone Support Person: Yes Living Situation Details: Patient resides at [facility] Physical Activity: Chairfast Level: Assisted Home Mobility Equipment: Wheelchair Physical - Functional Details: Pivots for transfers. Do you feel safe in your home environment?: Yes History of physical, verbal, emotional, or financial abuse?: No ETOH Use: None Substance Use: cannabis (any form) Substance Use Details: Pt is unable to respond to questions POLST Patient has POLST: No
[2025-01-20 04:42] LABS: HCT - HEMATOCRIT 32.5 % (37.0-47.0); HGB - HEMOGLOBIN 9.8 g/dL (12.0-16.0); MEAN PLATELET VOLUME 10.1 fL (7.9-10.8); NRBC ABSOLUTE COUNT (AUTO) 0.00 x10^3/uL; NUCLEATED RED BLOOD CELLS AUTO 0.0 /100WBC; PLT - PLATELET COUNT 118 10^3/uL (130-450); RED CELL DISTRIBUTION WIDTH 15.3 % (12.0-15.0)
[2025-01-20 04:44] LABS: VBG BASE EXCESS 8.7 mmol/L (-2 - +2); VBG PCO2 57.2 mmHg (41-51); VBG PH 7.379 (7.31-7.41); VBG PO2 98.5 mmHg (25-47); VBG TOTAL CO2 35.8 mmol/L (24-29)
[2025-01-20 04:57] LABS: BUN - BLOOD UREA NITROGEN 28.0 mg/dL (6-20); CARBON DIOXIDE - CO2 32.0 mmol/L (21-32); CREATININE 1.2 mg/dL (0.6-1.3); GFR - MDRD 46.0 (>89)
[2025-01-20] MEDS: CITALOPRAM 10 MG TABLET PO SCH (08:34)
--- NOTE | 2025-01-20 09:13 | Discharge Summary ---
"Discharge Summary Admit Date: 01/17/25 Discharge Date: 01/20/25 Discharging Provider: Dr. Jb Matthews Primary Care Provider: Maria Guadalupe Mon Code Status: Do Not Attempt Resuscitation Discharge Facility Name: [facility] DIAGNOSES Discharge Diagnoses with Status of Each Condition: Sepsis, pyelonephritis, urinary retention - Patient presented with fevers, chills. UA was positive for acute infection. Urine culture grew Klebsiella and ESBL E. coli. She received 2 days of meropenem, will be discharged home with 3 more days of levofloxacin. While here, she was retaining urine. Pelletier catheter was placed. It was then removed, and trial of void was completed, which was successful. Acute metabolic encephalopathylikely due to medication overuse. Telepsych was consulted for medication adjustment; tizanidine and oxycodone were held. Seroquel was halved. Trazodone was switched to as needed. Citalopram was also [place]. Stage IIIa chronic kidney diseasehad a mild GARTH, which is now resolved. Thrombocytopeniaresolved. Hyperkalemialikely due to slight GARTH, resolved. COPDcontinue home 2 L. Albuterol as needed. Bipolar type II disorder, PTSDresume home medications at lower dose, will need follow-up with psychiatry/behavioral health in the outpatient setting. Recent fracture of left distal fibula, chronic paincontinue Lyrica, Tylenol, topical diclofenac as needed. Type 2 diabetes mellitus, diet controlledcontinue to monitor. HPI History of Present Illness: Per Dr. Williams Ralph: Patient is a 54-year-old female who is residential at [facility] for self-care deficit. She has a history of COPD, on 2 L of O2 chronically, T2DM, PTSD, bipolar disorder, recurrent urinary tract infection, and an ankle fracture being managed nonsurgically. She was recently discharged in the hospital after being admitted for acute metabolic encephalopathy in the setting of polypharmacy with an attendant GARTH. She had a brief hospitalization, and was discharged on 12/11. She presented to the ED on 01/16 and was treated following a ground-level fall. Found to have a UTI, and was prescribed outpatient antibiotics with ceftriaxone here and Keflex at discharge. She does have a history of ESBL from March 2024. Pansensitive E. coli in May. Other infectious history includes a left lower extremity wound which she had cultured for MSSA. Seen back in the ED today after feeling worse despite antibiotics. Persistent leukocytosis and fever and in the ED. She has frankly septic vital signs. CT of her abdomen was completed and shows nonobstructive pyelonephritis. She is not exhibiting any renal colic. On my interview, she complains of back pain and knee pain bilaterally. States these are not chronic pains for her but they are bothering her right now. She is slumped down in bed. She is eating a sandwich and Jell-O. She frequently tries to speak well eating. Chokes occasionally given poor impulse control. States she has felt unwell for several weeks. Initially had enteric symptoms including nausea and diarrhea. These have since resolved, but now she feels febrile with malaise. Denies any dysuria. States her left ankle feels reasonably well since her fracture. Appeared comfortable on exam and then reported 10/10 pain Brief goals of care conversation. She remembers her conversation with Dr. Page and the early part of this year. She agrees that she still has nobody that she would identify as a POA. She has not picked anyone. She says her brother hates her. She says her nephew is an idiot. She has some friends at her assisted living facility, but would not defer to them for decisions. I encouraged her to continue thinking about this. She agrees she would want resuscitative efforts and life-sustaining treatments even if that meant staying in the hospital for an indefinite period of time. CONSULTS | PROCEDURES Consultations: Physical therapy Procedures: Abdomen/pelvis CT, knee x-ray, head CT, cervical spine CT HOSPITAL COURSE Hospital Course: Patient is a 54-year-old female with a history of COPD on 2 L of oxygen, bipolar disorder, recurrent urinary tract infections who presented for altered mental status, acute kidney injury. She was found to have a urinary tract infection. Urine cultures did grow ESBL E. coli as well as Klebsiella. She was placed on meropenem, for 2 days, and transition to oral levofloxacin. During her stay here, she was confused, and altered. Initially, it was attributed to CO2 retention. She was briefly placed on BiPAP. Telepsych was also consulted, due to likely medication overuse. Adjustments were made including lowering doses of her citalopram, Seroquel, and making trazodone just as needed. Her Depakote was made into once daily dosing as well. She has returned back to her baseline. She has been afebrile, with no white count. Physical therapy also worked with her, and deemed her suitable for discharge back to her assisted living facility. She was discharged home in stable condition. ALLERGIES Allergies Allergy/AdvReac Type Severity Reaction Status Date / Time No Known Drug Allergies Allergy Verified 01/16/25 09:00 MEDICATIONS Ambulatory Orders Medication Instructions Recorded Confirmed budesonide-formoterol HFA 80 1 inh inhalation BID #10. 2 grams 02/04/24 01/18/25 mcg-4.5 mcg/actuation aerosol inhaler (Breyna) ibuprofen 600 mg tablet (IBU) 600 mg PO Q6H PRN pain 0 04/12/24 01/18/25 albuterol sulfate 90 mcg/actuation 1 - 2 puff inhalati on Q4HR PRN 05/06/24 01/18/25 aerosol inhaler (Ventolin HFA) Shortness Of Air/Wheezi ng #1 ea acetaminophen 500 mg tablet 500 mg PO QID PRN fever or pain 12/04/24 01/18/25 (Tylenol Extra Strength) tizanidine 4 mg capsule 4 mg PO Q8H PRN muscle spast icity 12/09/24 01/18/25 #60 caps oxycodone-acetaminophen 5 mg-325 1 - 2 tab PO Q6H PRN pain 12/10/24 01/18/25 mg tablet (Percocet) diclofenac sodium 75 mg 75 mg PO BID PRN pain 01/18/25 tablet,delayed release pregabalin 150 mg capsule 150 mg PO BID #60 caps 12/2601/18/25 levothyroxine 25 mcg tablet 25 mcg PO DAILY 01/18/25 1 (Euthyrox) cholecalciferol (vitamin D3) 25 50 mcg (2 x 25 mcg (1, 000 unit)) 01/20/25 mcg (1,000 unit) tablet PO DAILY #60 tabs citalopram 10 mg tablet 10 mg PO DAILY #30 tabs 12/30 06/22 divalproex 250 mg tablet,extended 500 mg (2 x 250 mg) PO NIGHTLY #30 01/20/25 release 24 hr tabs levofloxacin 750 mg tablet 750 mg PO DAILY #3 tabs vit,calcium 27-ferrous 1 tab PO DAILYWM #30 t abs 01/20/25 fum 60 mg iron-folic acid 1 mg tablet (Trinatal Rx 1) quetiapine 100 mg tablet 150 mg (1.5 x 100 mg) PO QPM #30 01/20/25 tabs trazodone 50 mg tablet 100 mg (2 x 50 mg) PO QPM CO N 01/20/25 Insomnia #30 tabs PHYSICAL EXAM AT DISCHARGE Vital Signs: Vital Signs x48h Temp Pulse Resp BP Pulse Ox O2 Flow Rate 01/20/25 16:04 98.8 F 87 21 124/69 94 2 01/20/25 15:00 86 20 130/78 91 L 2 01/20/25 14:00 98.7 F 94 18 125/88 96 2 01/20/25 13:00 88 14 92 01/20/25 12:00 99.0 F 90 21 117/72 93 2 01/20/25 11:00 86 19 125/73 96 2 01/20/25 10:00 86 19 120/78 91 L 2 01/20/25 09:00 100.0 F 85 15 112/71 94 2 General Appearance: positive No acute distress and Alert Eyes Bilateral: positive Normal inspection, PERRL, EOMI, No lid inflammation, Conjunctivae nml and No scleral icterus ENT: positive ENT inspection nml Neck: positive Nml inspection, Thyroid nml, No JVD and Trachea midline Respiratory: positive Chest non-tender, No respiratory distress, Wheezes (Expiratory musical wheezing. ) and Other (Prolonged expiratory phase and decreased tidal volume. Expiration is still mildly coarse but rhonchi have improved. ) Cardiovascular: positive Regular rate & rhythm, No murmur and Bradycardia Abdomen: positive Non-tender, No organomegaly and Nml bowel sounds Skin: positive Color nml, No rash, Warm and Other (Mildly dry. Not diaphoretic. ) Extremities: positive Non-tender, Full ROM and Other (LE edema has improved. Right LE woody edema the same. Stasis dermatitis present bilaterally. ) Neurologic/Psychiatric: positive Oriented x3, CN's nml (2-12), Motor nml, Mood/affect nml and Other (Not currently anxious or agitated. Normal speech. ) LABS 01/20/25 04:34 01/20/25 04:34 SEPSIS Current Stage of Sepsis: Resolved Possible source of Sepsis: Genitourinary FOLLOW UP Follow Up: Follow up PCP. Follow up psychiatry. TIME SPENT Time Spent in Discharge (Minutes): 35 Discharge Plan Discharge Patient Disposition: [facility], Self Care Condition: Fair Prescriptions: New cholecalciferol (vitamin D3) 25 mcg (1,000 unit) Tablet 50 mcg PO DAILY Qty: 60 0RF citalopram 10 mg Tablet 10 mg PO DAILY Qty: 30 0RF divalproex 250 mg Tablet Extended Release 24 Hr 500 mg PO NIGHTLY Qty: 30 0RF Trinatal Rx 1 60 mg iron-1 mg Tablet 1 tab PO DAILYWM Qty: 30 0RF quetiapine 100 mg Tablet 150 mg PO QPM Qty: 30 0RF trazodone 50 mg Tablet 100 mg PO QPM PRN (Reason: Insomnia) Qty: 30 0RF levofloxacin 750 mg tablet 750 mg PO DAILY Qty: 3 0RF Continued budesonide-formoterol [Breyna] 80-4.5 mcg/actuation HFA aerosol inhaler 1 inh inhalation BID Qty: 10.2 3RF pregabalin 150 mg capsule 150 mg PO BID Qty: 60 5RF ibuprofen [IBU] 600 mg tablet 600 mg PO Q6H PRN (Reason: pain) acetaminophen [Tylenol Extra Strength] 500 mg tablet 500 mg PO QID PRN (Reason: fever or pain) oxycodone-acetaminophen [Percocet] 5-325 mg tablet 1 - 2 tab PO Q6H PRN (Reason: pain) Rx Instructions: 1 TAB FOR PAIN OF 1-5, 2 TABS FOR PAIN OF 6-10 levothyroxine [Euthyrox] 25 mcg tablet 25 mcg PO DAILY Rx Instructions: Take 1 tablet by mouth once a day tizanidine 4 mg capsule 4 mg PO Q8H PRN (Reason: muscle spasticity) Qty: 60 5RF Rx Instructions: for muscle pain and spasm albuterol sulfate [Ventolin HFA] 90 mcg/actuation HFA aerosol inhaler 1 - 2 puff inhalation Q4HR PRN (Reason: Shortness Of Air/Wheezing) Qty: 1 12RF diclofenac sodium 75 mg tablet,delayed release (DR/EC) 75 mg PO BID PRN (Reason: pain) Discontinued divalproex 250 mg tablet,delayed release (DR/EC) 250 mg PO BID Qty: 180 0RF quetiapine 300 mg tablet 300 mg PO HS trazodone 300 mg tablet 300 mg PO HS cephalexin 500 mg capsule 500 mg PO BID Rx Instructions: x 7 days Activity Restrictions: Activity as Tolerated Diet: Regular Health Concerns: You came in because you were confused, you had urinary symptoms and you had a high fever. You are found to have a urinary tract infection. You are also found to be retaining urine, and we placed a Pelletier catheter. We removed this and you are urinating on your own. While you have been here, you have been very confused and lethargic. You are on some very high doses of your psychiatric medications. We obtained a telepsych evaluation, and made some adjustments to your medications. I understand you have an appointment with behavioral health in the next week; please continue to follow-up with them, and continue to taper down these medications at home. You will need 3 more days of oral antibiotics, which you will take once a day. We are glad you're feeling better; thank you for allowing us to care for you. Print Language: Mongolian Patient Instructions: ESBL-Producing Bacteria, Kidney Infec Dc Stand Alone Forms: PCP List Follow-up Care: Maria Guadalupe Mon ARNP [Primary Care Provider, Family Practice] Report called to and time (if no answer, doc. time of each call attempted): Winston [facility] [place] [facility] at 1310 Vitals documented within 30 minutes of discharge?: Yes"
[2025-01-20 09:39] LABS: VALPROIC ACID (DEPAKOTE) 8.4 ug/mL
--- NOTE | 2025-01-20 13:06 | ADVANCE CARE PLANNING NOTE ---
Advance Care Planning Planning Encounter Date: 01/20/25 Time: 12:00 Purpose: Establish goals of care, fill out POLST. Parties in Attendance: Patient. Decisional Capacity of the Patient: Fully decisional. 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
[2025-01-20 16:05] VITALS: BP 124/69; TEMP 98.8; O2SAT 94
[2025-01-20] MEDS ORDERED: DIVALPROEX ER 250 MG TABLET PO SCH (21:00)
== END 2025-01-20 16:15 | disposition home or self-care (01) | DRG 871 ==
LOC: ED 15:49 → MS2 17:01 → ICU 01-18 17:41
PROVIDERS: ADMIT Student in an Organized Health Care Education/Training Program; ATTEND Student in an Organized Health Care Education/Training Program
DX: Z79.899 Other long term (current) drug therapy; A41.9 Sepsis, unspecified organism; X58.XXXD Exposure to other specified factors, subsequent encounter; R40.0 Somnolence; S82.832D Other fracture of upper and lower end of left fibula, subsequent encounter for closed fracture with routine healing; J96.11 Chronic respiratory failure with hypoxia; N18.31 Chronic kidney disease, stage 3a; B96.1 Klebsiella pneumoniae [K. pneumoniae] as the cause of diseases classified elsewhere; J45.40 Moderate persistent asthma, uncomplicated; F41.1 Generalized anxiety disorder; W19.XXXA Unspecified fall, initial encounter; J44.89 Other specified chronic obstructive pulmonary disease; N17.9 Acute kidney failure, unspecified; E87.5 Hyperkalemia; M25.561 Pain in right knee; Z79.890 Hormone replacement therapy; A41.59 Other Gram-negative sepsis; B96.20 Unspecified Escherichia coli [E. coli] as the cause of diseases classified elsewhere; M54.50 Low back pain, unspecified; F17.210 Nicotine dependence, cigarettes, uncomplicated; M25.562 Pain in left knee; A41.51 Sepsis due to Escherichia coli [E. coli]; R33.9 Retention of urine, unspecified; Z99.81 Dependence on supplemental oxygen; J44.9 Chronic obstructive pulmonary disease, unspecified; G89.29 Other chronic pain; D69.6 Thrombocytopenia, unspecified; F31.81 Bipolar II disorder; F43.10 Post-traumatic stress disorder, unspecified; G93.41 Metabolic encephalopathy; E11.22 Type 2 diabetes mellitus with diabetic chronic kidney disease; N12 Tubulo-interstitial nephritis, not specified as acute or chronic

== ENCOUNTER 2025-03-01 11:28 | Inpatient (IN) ==
--- OUTSIDE RECORDS SUMMARY | 2025-03-01 11:43 | EXTERNAL MEDICAL SUMMARY RPT | Continuity of Care Document ---
Author Organization [facility] Address [address] [place] [id number] Phone Problems date description facility 2024-12-01 13:25 Strain of unspecifie d muscle, fascia and tendon at shoulder and upper arm level, right arm, [facility] 2024-12-01 14:41 Cellulitis of left lower limb [employer] [facility] 2024-12-01 15:20 [facility] 2024-12-02 11:55 Toxic effect of unsp ecified spider venom, accidental (unintentional), [facility] 2024-12-03 11:37 [facility] lower [facility] 2024-12-03 11:37 Toxic effect of unsp ecified spider venom, accidental (unintentional), [facility] 2024-12-04 13:14 Acute cystitis [facility]uri [facility] 2024-12-09 14:45 [facility] lower [facility] 2024-12-09 14:45 Acute cystitis [facility] hematuri [facility] 2024-12-09 14:45 Torus fracture of lo wer end of left fibula, initial encounter [facility] closed [facility] 2024-12-10 08:09 [facility]ness [facility] 2024-12-10 12:39 [facility] 13:02 Pain in left ankle and joints o f left foot [facility] 2024-12-10 18:24 Encephalopathy, unspecified [facility] 2024-12-10 21:01 Bipolar II disorder [facility] 2024-12-10 21:01 [facility], [facility] 2024-12-10 21:01 Chronic obstructive pulmonary d isease, unspecified [facility] 2024-12-10 21:01 Acute kidney failure, unspecifi ed [facility] 2024-12-11 09:32 [facility] 2024-12-11 09:32 Encephalopathy, unspecified [facility] 2024-12-11 09:32 Chronic obstructive pulmonary d isease, unspecified [facility] 2024-12-11 09:32 Acute kidney failure, unspecifi ed [facility] 2024-12-11 12:42 Bipolar II disorder [facility] 2024-12-11 12:42 Encephalopathy, unspecified [facility] 2024-12-11 12:42 [facility] pulmonary d isease, [facility] 2024-12-11 12:42 Acute kidney failure, unspecifi ed [facility] 2024-12-11 12:58 Bipolar II disorder [facility] 2024-12-11 12:58 Encephalopathy, unspecified [facility] 2024-12-11 12:58 Chronic obstructive pulmonary d isease, unspecified [facility] 2024-12-11 12:58 Acute kidney failure, unspecifi ed [facility] 2024-12-11 13:20 Bipolar II disorder [facility] 2024-12-11 13:20 Encephalopathy, unspecified [facility] 2024-12-11 13:20 Chronic obstructive pulmonary d isease, [facility] 2024-12-11 13:20 Acute kidney failure, unspecifi ed [facility] 2024-12-11 17:03 Bipolar II disorder [facility] 2024-12-11 17:03 Encephalopathy, unspecified [facility] 2024-12-11 17:03 Chronic obstructive pulmonary d isease, [facility] 2024-12-11 17:03 Acute kidney failure, unspecifi ed [facility] 2024-12-13 06:33 Sepsis, unspecified [facility] 2024-12-13 06:33 Type 2 diabetes shelia itus with other specified complication [facility] 2024-12-13 06:33 Type 2 diabetes mellitus withou t complications [facility] 2024-12-13 06:33 [facility] 2024-12-13 06:33 Major depressive dis order, single episode, unspecified [facility] 2024-12-13 06:33 Generalized anxiety disorder [facility] 2024-12-13 06:33 Encephalopathy, unspecified [facility] 2024-12-13 06:33 Essential (primary) hypertensio n [facility] 2024-12-13 06:33 Acute upper respiratory infecti on, unspecified [facility] 2024-12-13 06:33 Chronic obstructive pulmonary disease with (acute) exacerbation [facility] 2024-12-13 06:33 Chronic obstructive pulmonary d isease, unspecified [facility] 2024-12-13 06:33 Mild intermittent asthma with ( acute) exacerbation [facility] 2024-12-13 06:33 Moderate persistent asthma with (acute) exacerbation [facility] 2024-12-13 06:33 Unspecified asthma with (acute) exacerbation [facility] 2024-12-13 06:33 Acute respiratory failure with hypoxia [facility] 2024-12-13 06:33 Acute and chronic respiratory f ailure with hypoxia [facility] 2024-12-13 06:33 [facility] lower [facility]24-12[facility]13 06:33 Pain in right shoulder [facility] 2024-12-13 06:33 Pain in left ankle and joints o f left foot [facility] 2024-12-13 06:33 Acute kidney failure, unspecifi ed [facility] 2024-12-13 06:33 Acute cystitis without hematuri a [facility] 2024-12-13 06:33 Urinary tract infection, site n ot specified [facility] 2024-12-13 06:33 Cough, unspecified [facility] 2024-12-13 06:33 Dyspnea, unspecified [facility] 2024-12-13 06:33 Shortness of breath [facility] 2024-12-13 06:33 Hypoxemia [facility] 2024-12-13 06:33 Disorientation, unspecified i [facility] 2024-12-13 06:33 Fever, unspecified [facility] 2024-12-13 06:33 Other fatigue [facility] 2024-12-13 06:33 Strain of unspecifie d muscle, fascia and tendon at shoulder and upper arm level, right arm, initial encounter [facility] 2024-12-13 06:33 Fracture of unspecif ied metatarsal bone(s), unspecified foot, initial encounter for closed fracture [facility] 2024-12-13 06:33 Unspecified injury of left foot , initial encounter [facility] 2024-12-13 06:33 Poisoning by fentany l or fentanyl analogs, accidental (unintentional), initial encounter [facility] 2024-12-13 06:33 Toxic effect of unsp ecified spider venom, accidental (unintentional), initial encounter [facility] 2024-12-13 06:33 Procedure and treatm ent not carried out due to patient leaving prior to being seen by health care provider [facility] 2024-12-13 06:33 Encounter for issue of repeat p rescription [facility] 2024-12-13 06:33 Dependence on wheelchair [facility] 2024-12-13 07:09 Bipolar II disorder [facility]24-12-13 07:09 Encephalopathy, unspecified [facility] 2024-12-13 07:09 Chronic obstructive pulmonary d isease, unspecified [facility] 2024-12-13 07:09 Acute kidney failure, unspecifi ed [facility] 2024-12-13 09:24 Bed confinement status [facility] 2024-12-13 09:43 Weakness [facility] 2024-12-13 09:46 Encounter for observ ation for other suspected diseases and conditions ruled out [facility] 2024-12-14 08:41 Bipolar II disorder [facility] 2024-12-14 08:41 Encephalopathy, unspecified [facility] 2024-12-14 08:41 Chronic obstructive pulmonary d isease, unspecified [facility] 2024-12-14 08:41 Pain in left ankle and joints o f left foot [facility] 2024-12-14 08:41 Acute kidney failure, unspecifi ed [facility] 2024-12-14 08:41 Altered mental status, unspecif ied [facility] 2024-12-15 09:45 Sepsis, unspecified [facility] 2024-12-15 09:45 Type 2 diabetes shelia itus with other specified complication [facility] 2024-12-15 09:45 Type 2 diabetes mellitus withou t complications [facility] 2024-12-15 09:45 Bipolar II disorder [facility] 2024-12-15 09:45 Major depressive dis order, single episode, unspecified [facility] 2024-12-15 09:45 Generalized anxiety disorder [facility] 2024-12-15 09:45 Encephalopathy, unspecified [facility] 2024-12-15 09:45 Essential (primary) hypertensio n [facility] 2024-12-15 09:45 Chronic obstructive pulmonary disease with (acute) exacerbation [facility] 2024-12-15 09:45 Mild intermittent asthma with ( acute) exacerbation [facility] 2024-12-15 09:45 Acute respiratory failure with hypoxia [facility] 2024-12-15 09:45 Acute and chronic respiratory f ailure with hypoxia [facility] 2024-12-15 09:45 [facility]ulitis of left lower limb [facility] 2024-12-15 09:45 Pain in right shoulder [facility] 2024-12-15 09:45 Pain in left ankle and joints o f left foot [facility] 2024-12-15 09:45 Acute kidney failure, unspecifi ed [facility] 2024-12-15 09:45 Acute cystitis without hematuri a [facility] 2024-12-15 09:45 Urinary tract infection, site n ot specified [facility] 2024-12-15 09:45 Cough, unspecified [facility] 2024-12-15 09:45 Shortness of breath [facility] 2024-12-15 09:45 Hypoxemia [facility] 2024-12-15 09:45 Disorientation, unspecified [facility] 2024-12-15 09:45 Fever, unspecified [facility] 2024-12-15 09:45 Other fatigue [facility] 2024-12-15 09:45 Strain of unspecifie d muscle, fascia and tendon at shoulder and upper arm level, right arm, initial [facility] 2024-12-15 09:45 Poisoning by fentany l or fentanyl analogs, accidental (unintentional), [facility] 2024-12-15 09:45 Toxic effect of unsp ecified spider venom, accidental (unintentional), initial encounter [facility] 2024-12-15 09:45 Procedure and treatm ent not carried out due to patient leaving prior to being seen by health care provider [facility] 2024-12-15 09:45 Encounter for issue of repeat p rescription [facility] 2024-12-15 09:45 Dependence on wheelchair [facility] 2024-12-15 13:52 Transient alteration of awarene ss [facility] 2024-12-15 14:16 Altered mental status, unspecif ied [facility] 2024-12-20 08:35 Bed confinement status [facility] 2024-12-22 09:12 Sepsis, unspecified organism [facility] 2024-12-22 09:12 Type 2 diabetes shelia itus with other specified complication [facility] 2024-12-22 09:12 Type 2 diabetes mellitus withou t complications [facility] 2024-12-22 09:12 Bipolar II disorder [facility] 2024-12-22 09:12 Major depressive dis order, single episode, unspecified [facility] 2024-12-22 09:12 Generalized anxiety disorder [facility] 2024-12-22 09:12 Encephalopathy, unspecified [facility] 2024-12-22 09:12 Essential (primary) hypertensio n [facility] 2024-12-22 09:12 Acute upper respiratory infecti on, unspecified [facility] 2024-12-22 09:12 Chronic obstructive pulmonary disease with (acute) exacerbation [facility] 2024-12-22 09:12 Mild intermittent asthma with ( acute) exacerbation [facility] 2024-12-22 09:12 Moderate persistent asthma with (acute) exacerbation [facility] 2024-12-22 09:12 Unspecified asthma with (acute) exacerbation [facility] 2024-12-22 09:12 Acute respiratory failure with hypoxia [facility] 2024-12-22 09:12 Acute and chronic respiratory f ailure with hypoxia [facility] 2024-12-22 09:12 [facility]ulitis of left lower limb [facility] 2024-12-22 09:12 Pain in right shoulder [facility] 2024-12-22 09:12 Pain in left ankle and joints o f left foot [facility] 2024-12-22 09:12 Acute kidney failure, unspecifi ed [facility] 2024-12-22 09:12 Acute cystitis without hematuri a [facility] 2024-12-22 09:12 Urinary tract infection, site n ot specified [facility] 2024-12-22 09:12 Cough, unspecified [facility] 2024-12-22 09:12 Dyspnea, unspecified [facility] 2024-12-22 09:12 Shortness of breath [facility] 2024-12-22 09:12 Hypoxemia [facility] 2024-12-22 09:12 Disorientation, unspecified i [facility] 2024-12-22 09:12 Fever, unspecified [facility] 2024-12-22 09:12 Other fatigue [facility] 2024-12-22 09:12 Strain of unspecifie d muscle, fascia and tendon at shoulder and upper arm level, right arm, [facility] 2024-12-22 09:12 Fracture of unspecif ied metatarsal bone(s), unspecified foot, initial encounter for closed fracture [facility] 2024-12-22 09:12 Unspecified injury of left foot , [facility] 2024-12-22 09:12 Poisoning by fentany l or fentanyl analogs, accidental (unintentional), [facility] 2024-12-22 09:12 Toxic effect of unsp ecified spider venom, accidental (unintentional), [facility] 2024-12-22 09:12 Procedure and treatm ent not carried out due to patient leaving prior to being seen by health care provider [facility] 2024-12-22 09:12 Encounter for issue of repeat p rescription [facility] 2024-12-22 09:12 Dependence on wheelchair [facility] 2024-12-22 10:26 Type 2 diabetes mellitus withou t complications [facility] 2024-12-22 10:41 Sepsis, unspecified organism [facility] 2024-12-22 10:41 Type 2 diabetes shelia itus with other specified complication [facility] 2024-12-22 10:41 Type 2 diabetes mellitus withou t complications [facility] 2024-12-22 10:41 Bipolar II disorder [facility] 2024-12-22 10:41 Major depressive dis order, single episode, unspecified [facility] 2024-12-22 10:41 Generalized anxiety disorder [facility] 2024-12-22 10:41 [facility]opathy, [facility] 2024-12-22 10:41 Essential (primary) hypertensio n [facility] 2024-12-22 10:41 Acute upper respiratory infecti on, unspecified [facility] 2024-12-22 10:41 Chronic obstructive pulmonary disease with (acute) exacerbation [facility] 2024-12-22 10:41 Mild intermittent asthma with ( acute) exacerbation [facility] 2024-12-22 10:41 Moderate persistent asthma with (acute) exacerbation [facility] 2024-12-22 10:41 Unspecified asthma with (acute) exacerbation [facility] 2024-12-22 10:41 Acute respiratory failure with hypoxia [facility] 2024-12-22 10:41 Acute and chronic respiratory f ailure with hypoxia [facility] 2024-12-22 10:41 [facility] lower limb [facility]22 10:41 Pain in right shoulder [facility] 2024-12-22 10:41 Pain in left ankle and joints o f left foot [facility] 2024-12-22 10:41 Acute kidney failure, unspecifi ed [facility] 2024-12-22 10:41 Acute cystitis without hematuri a [facility] 2024-12-22 10:41 Urinary tract infection, site n ot specified [facility] 2024-12-22 10:41 Cough, unspecified [facility] 2024-12-22 10:41 Dyspnea, unspecified [facility] 2024-12-22 10:41 Shortness of breath [facility] 2024-12-22 10:41 [facility]oxemia [facility] 2024-12-22 10:41 Disorientation, unspecified i [facility] 2024-12-22 10:41 Fever, unspecified [facility] 2024-12-22 10:41 Other fatigue [facility] 2024-12-22 10:41 Strain of unspecifie d muscle, fascia and tendon at shoulder and upper arm level, right arm, initial encounter [facility] 2024-12-22 10:41 Fracture of unspecif ied metatarsal bone(s), unspecified foot, initial encounter for closed fracture [facility] 2024-12-22 10:41 Unspecified injury of left foot , [facility] encounter [facility] 2024-12-22 10:41 Poisoning by fentany l or fentanyl analogs, accidental (unintentional), [facility] 2024-12-22 10:41 Toxic effect of unsp ecified spider venom, accidental (unintentional), [facility] encounter [facility] 2024-12-22 10:41 Procedure and treatm ent not carried out due to patient leaving prior to being seen by health care provider [facility] 2024-12-22 10:41 Encounter for issue of repeat p rescription [facility] 2024-12-22 10:41 Dependence on wheelchair [facility] 2024-12-27 09:58 Pain in left ankle and joints o f left foot [facility] 2024-12-27 09:58 Unspecified fracture of shaft of humerus, unspecified arm, initial encounter for closed fracture [facility] 2024-12-28 00:03 Pain in left ankle and joints o f left foot [facility] 2024-12-28 00:03 Unspecified fracture of shaft of humerus, unspecified arm, initial encounter for closed fracture [employer] 2024-12-28 11:18 Other fracture of up per and lower end of left fibula, initial encounter for closed fracture [employer] 2024-12-29 09:26 Other fracture of le ft lower leg, initial encounter for closed fracture [employer] 2024-12-29 09:26 Asymptomatic menopausal state [employer] 2025-01-03 09:54 Pain in left ankle and joints o f left foot [employer] 2025-01-03 09:54 Unspecified fracture of shaft of humerus, right arm, initial encounter for closed fracture [employer] 2025-01-05 12:58 Other fracture of up per and lower end of left fibula, initial encounter for closed fracture [facility] 2025-01-06 00:03 Other fracture of up per and lower end of left fibula, initial encounter for closed fracture [facility] 2025-01-07 10:39 Encounter for observ ation for other suspected diseases and conditions ruled out [employer] 2025-01-10 11:01 Unspecified urinary incontinenc e [employer] 2025-01-11 09:14 Cellulitis of left lower limb [employer] 2025-01-11 09:14 Acute cystitis without hematuri a [employer] 2025-01-11 09:14 Torus fracture of lo wer end of left fibula, initial encounter for closed fracture [employer] 2025-01-13 11:36 Other fracture of up per and lower end of left fibula, initial encounter for closed fracture [employer] 2025-01-13 12:23 Other fracture of up per and lower end of left fibula, initial encounter for closed fracture [employer] 2025-01-14 09:18 Other fracture of le ft lower leg, initial encounter for closed fracture [employer] 2025-01-14 09:18 Asymptomatic menopausal state [employer] 2025-01-14 09:21 Other fracture of le ft lower leg, initial encounter for closed fracture [employer] 2025-01-14 09:21 Asymptomatic menopausal state [employer] 2025-01-16 09:00 Unspecified urinary incontinenc e [employer] 2025-01-16 09:00 Other fracture of le ft lower leg, initial encounter for closed fracture [facility] 2025-01-16 09:00 [facility] 11:58 Urinary tract infection, site n ot specified [facility] 12:42 Urinary tract infection, site n ot specified [facility]25-01-17 17:20 Sepsis, unspecified organism [facility] 2025-01-17 18:35 Sepsis, unspecified organism [facility] 2025-01-17 18:35 [facility]17 18:35 Bipolar II disorder [facility] 2025-01-17 18:35 Post-traumatic stress disorder, unspecified [facility] 2025-01-17 18:35 Other chronic pain [employer] [facility] 2025-01-17 18:35 Chronic obstructive pulmonary d isease, unspecified [facility] 2025-01-17 18:35 Chronic respiratory failure, unspecified whether with hypoxia or hypercapnia [facility] 2025-01-17 18:35 Tubulo-interstitial nephritis, not specified as acute or chronic [facility] 2025-01-17 18:35 Chronic kidney disease, stage 3 a [facility] 2025-01-17 18:35 Other fracture of up per and lower end of left fibula, initial encounter for closed fracture [facility] 2025-01-18 07:24 Sepsis, unspecified organism [facility] 2025-01-18 07:24 [facility]18 07:24 [facility] 2025-01-18 07:24 Post-traumatic stress disorder, unspecified [employer] 2025-01-18 07:24 Other chronic pain [employer] [facility] 2025-01-18 07:24 Chronic obstructive pulmonary d isease, unspecified [facility] 2025-01-18 07:24 Chronic respiratory failure, unspecified whether with hypoxia or hypercapnia [facility] 2025-01-18 07:24 Tubulo-interstitial nephritis, not specified as acute or chronic [employer] 2025-01-18 07:24 Chronic kidney disease, stage 3 a [employer] 2025-01-18 07:24 Other fracture of up per and lower end of left fibula, initial encounter for closed fracture [employer] 2025-01-18 09:38 Urinary tract infection, site n ot specified [facility] 2025-01-18 09:38 Dizziness and giddiness [employer] 2025-01-18 17:41 Sepsis, unspecified organism [facility] 2025-01-18 17:41 Thrombocytopenia, unspecified [employer] 2025-01-18 17:41 Type 2 diabetes shelia itus with other specified complication [employer] 2025-01-18 17:41 Hyperkalemia [employer] 2025-01-18 17:41 Bipolar II disorder [employer] [facility] 2025-01-18 17:41 Generalized anxiety disorder [facility] 2025-01-18 17:41 Post-traumatic stress disorder, unspecified [facility] 2025-01-18 17:41 [facility] 2025-01-18 17:41 Chronic obstructive pulmonary d isease, unspecified [employer] 2025-01-18 17:41 Chronic respiratory failure, unspecified whether with hypoxia or hypercapnia [employer] 2025-01-18 17:41 Chronic respiratory failure wit h hypoxia [employer] 2025-01-18 17:41 Tubulo-interstitial nephritis, not specified as acute or chronic [facility] 2025-01-18 17:41 Chronic kidney disease, stage 3 a [employer] 2025-01-18 17:41 Other fracture of up per and lower end of left fibula, initial encounter for closed fracture [employer] 2025-01-18 17:41 Other fracture of up per and lower end of left fibula, subsequent encounter for closed fracture with routine healing [employer] 2025-01-18 17:41 Dependence on wheelchair [employer] 2025-01-18 17:46 Sepsis, unspecified organism [facility] 2025-01-18 17:46 Thrombocytopenia, unspecified [employer] 2025-01-18 17:46 Type 2 diabetes shelia itus with other specified complication [facility]18 17:46 [facility]kalemia [facility] 2025-01-18 17:46 [facility] 2025-01-18 17:46 Generalized anxiety disorder [facility] 2025-01-18 17:46 Post-traumatic stress disorder, unspecified [facility] 2025-01-18 17:46 [facility] 2025-01-18 17:46 Chronic obstructive pulmonary d isease, unspecified [facility] 2025-01-18 17:46 Chronic respiratory failure, unspecified whether with hypoxia or hypercapnia [facility]25-01[facility]18 17:46 Chronic respiratory failure wit h hypoxia [facility] 2025-01-18 17:46 Tubulo-interstitial nephritis, not specified as acute or chronic [facility] 2025-01-18 17:46 Chronic kidney disease, stage 3 a [facility]25-01[facility]18 17:46 Other fracture of up per and lower end of left fibula, initial encounter for closed fracture [facility] 2025-01-18 17:46 Other fracture of up per and lower end of left fibula, subsequent encounter for closed fracture with routine healing [facility] 2025-01-18 17:46 Dependence on wheelchair [facility] 2025-01-19 12:44 Sepsis, unspecified organism [facility] 2025-01-19 12:44 Thrombocytopenia, [facility] 2025-01-19 12:44 Type 2 diabetes shelia itus with other specified complication [facility]25-01[facility]19 12:44 [facility] 2025-01-19 12:44 [facility] disorder [facility] 2025-01-19 12:44 Generalized anxiety disorder [facility] 2025-01-19 12:44 Post-traumatic stress disorder, unspecified [facility] 2025-01-19 12:44 Other [facility] 2025-01-19 12:44 Chronic obstructive pulmonary d isease, unspecified [facility] 2025-01-19 12:44 Chronic respiratory failure, unspecified whether with hypoxia or hypercapnia [employer] 2025-01-19 12:44 Chronic respiratory failure wit h hypoxia [facility] 2025-01-19 12:44 Tubulo-interstitial nephritis, not specified as acute or chronic [facility] 2025-01-19 12:44 Chronic kidney disease, stage 3 a [employer] 2025-01-19 12:44 Other fracture of up per and lower end of left fibula, initial encounter for closed fracture [employer] 2025-01-19 12:44 Other fracture of up per and lower end of left fibula, subsequent encounter for closed fracture with routine healing [facility] 2025-01[facility]19 12:44 Dependence on wheelchair [facility] 2025-01-19 12:59 Sepsis, unspecified organism [facility] 2025-01-19 12:59 Thrombocytopenia, unspecified [facility]25-01[facility]19 12:59 Type 2 diabetes shelia itus with other specified complication [facility] 2025-01-19 12:59 [facility]kalemia [facility] 2025-01-19 12:59 B[facility] disorder [facility] 2025-01-19 12:59 Generalized anxiety disorder [facility] 2025-01-19 12:59 Post-traumatic stress disorder, unspecified [facility] 2025-01-19 12:59 Other chronic pain [facility] 2025-01-19 12:59 Chronic obstructive pulmonary d isease, unspecified [facility] 2025-01-19 12:59 Chronic respiratory failure, unspecified whether with hypoxia or hypercapnia [facility] 2025-01-19 12:59 Chronic respiratory failure wit h hypoxia [facility] 2025-01-19 12:59 Tubulo-interstitial nephritis, not specified as acute or chronic [employer] 2025-01-19 12:59 Chronic kidney disease, stage 3 a [employer] 2025-01-19 12:59 Other fracture of up per and lower end of left fibula, initial encounter for closed fracture [facility] 2025-01-19 12:59 Other fracture of up per and lower end of left fibula, subsequent encounter for closed fracture with routine healing [employer] 2025-01-19 12:59 Dependence on wheelchair [employer] 2025-01-20 09:13 Sepsis, unspecified organism [facility] 2025-01-20 09:13 Thrombocytopenia, unspecified [employer] 2025-01-20 09:13 Type 2 diabetes shelia itus with other specified complication [facility]25-01[facility]20 09:13 [facility]kalemia [facility] 2025-01-20 09:13 B[facility] disorder [facility] 2025-01-20 09:13 Generalized anxiety disorder [facility] 2025-01-20 09:13 Post-traumatic stress disorder, unspecified [facility] 2025-01-20 09:13 Drug induced subacute dyskinesi a [facility] 2025-01-20 09:13 Other chronic pain [employer] [facility] 2025-01-20 09:13 Metabolic encephalopathy [employer] 2025-01-20 09:13 Chronic obstructive pulmonary d isease, unspecified [facility] [facility] 2025-01-20 09:13 Chronic respiratory failure, unspecified whether with hypoxia or hypercapnia [facility] 2025-01-20 09:13 Chronic respiratory failure wit h hypoxia [employer] [facility] 2025-01-20 09:13 Tubulo-interstitial nephritis, not specified as acute or chronic [facility]25-01-20 09:13 Chronic kidney disease, stage 3 a [employer] 2025-01-20 09:13 Retention of urine, unspecified [facility] 2025-01-20 09:13 Other fracture of up per and lower end of left fibula, initial encounter for closed fracture [employer] 2025-01-20 09:13 Other fracture of up per and lower end of left fibula, subsequent encounter for closed fracture with routine healing [facility] 2025-01-20 09:13 Dependence on wheelchair [facility] 2025-01-20 10:16 Sepsis, unspecified organism [facility] 2025-01-20 10:16 Thrombocytopenia, unspecified [employer] 2025-01-20 10:16 Type 2 diabetes shelia itus with other specified complication [employer] 2025-01-20 10:16 [facility] 2025-01-20 10:16 [facility] disorder [facility] 2025-01-20 10:16 Generalized anxiety disorder [facility] 2025-01-20 10:16 Post-traumatic stress disorder, unspecified [facility] 2025-01-20 10:16 Drug induced subacute dyskinesi a [facility] 2025-01-20 10:16 Other chronic pain [facility] 2025-01-20 10:16 Metabolic encephalopathy [email or web address] [facility] 2025-01-20 10:16 Chronic obstructive pulmonary d isease, unspecified [facility] 2025-01-20 10:16 Chronic respiratory failure, unspecified whether with hypoxia or hypercapnia [facility] 2025-01-20 10:16 Chronic respiratory failure wit h hypoxia [facility] 2025-01-20 10:16 Tubulo-interstitial nephritis, not specified as acute or chronic [facility] 2025-01-20 10:16 Chronic kidney disease, stage 3 a [facility] 2025-01[facility]20 10:16 Retention of urine, unspecified [facility] 2025-01-20 10:16 Other fracture of up per and lower end of left fibula, initial encounter for closed fracture [facility] 2025-01-20 10:16 Other fracture of up per and lower end of left fibula, subsequent encounter for closed fracture with routine healing [facility] 2025-01-20 10:16 Dependence on wheelchair [facility] 2025-01-20 10:25 Sepsis, unspecified organism [facility] 2025-01-20 10:25 Thrombocytopenia, unspecified [facility]20 10:25 Type 2 diabetes shelia itus with other specified complication [facility] 2025-01-20 10:25 Hyperkalemia [facility] 2025-01-20 10:25 Bipolar II disorder [facility] 2025-01-20 10:25 Generalized anxiety disorder [facility] 2025-01-20 10:25 Post-traumatic stress disorder, unspecified [facility] 2025-01-20 10:25 Drug induced subacute dyskinesi a [employer] 2025-01-20 10:25 Insomnia, unspecified [facility] 2025-01-20 10:25 Other chronic pain [facility] 2025-01-20 10:25 Metabolic encephalopathy [facility] 2025-01-20 10:25 Chronic obstructive pulmonary d isease, unspecified [facility] 2025-01-20 10:25 Chronic respiratory failure, unspecified whether with hypoxia or hypercapnia [facility] 2025-01-20 10:25 Chronic respiratory failure wit h hypoxia [facility] 2025-01-20 10:25 Age-related osteopor osis without current pathological fracture [employer] 2025-01-20 10:25 Tubulo-interstitial nephritis, not specified as acute or chronic [facility] 2025-01-20 10:25 Chronic kidney disease, stage 3 a [employer] 2025-01-20 10:25 Retention of urine, unspecified [facility] 2025-01-20 10:25 Other fracture of up per and lower end of left fibula, initial encounter for closed fracture [employer] [facility] 2025-01-20 10:25 Other fracture of up per and lower end of left fibula, subsequent encounter for closed fracture with routine healing [facility] 2025-01-20 10:25 Dependence on wheelchair [employer] 2025-01-20 10:30 Sepsis, unspecified organism [facility] 2025-01-20 10:30 Thrombocytopenia, [facility]20 10:30 Type 2 diabetes shelia itus with other specified complication [employer] [facility] 2025-01-20 10:30 Hyperkalemia [employer] [facility] 2025-01-20 10:30 [facility] disorder [facility] 2025-01-20 10:30 Generalized anxiety disorder [employer] [facility] 2025-01-20 10:30 Post-traumatic stress disorder, unspecified [facility] 2025-01-20 10:30 Drug induced subacute dyskinesi a [employer] 2025-01-20 10:30 Insomnia, unspecified [facility] 2025-01-20 10:30 Other chronic pain [employer] [facility] 2025-01-20 10:30 Metabolic encephalopathy [employer] 2025-01-20 10:30 Chronic obstructive pulmonary d isease, unspecified [facility] 2025-01-20 10:30 Chronic respiratory failure, unspecified whether with hypoxia or hypercapnia [employer] 2025-01-20 10:30 Chronic respiratory failure wit h hypoxia [employer] [facility] 2025-01-20 10:30 Age-related osteopor osis without current pathological fracture [employer] 2025-01-20 10:30 Tubulo-interstitial nephritis, not specified as acute or chronic [employer] [facility] 2025-01-20 10:30 Chronic kidney disease, stage 3 a [employer] 2025-01-20 10:30 Retention of urine, unspecified [employer] [facility] 2025-01-20 10:30 Other fracture of up per and lower end of left fibula, initial encounter for closed fracture [employer] 2025-01-20 10:30 Other fracture of up per and lower end of left fibula, subsequent encounter for closed fracture with routine healing [employer] 2025-01-20 10:30 Dependence on wheelchair [employer] 2025-01-20 13:11 Sepsis, unspecified organism [employer] 2025-01-20 13:11 Thrombocytopenia, unspecified [facility]20 13:11 Type 2 diabetes shelia itus with other specified complication [employer] 2025-01-20 13:11 Hyperkalemia [employer] 2025-01-20 13:11 Bipolar II disorder [employer] [facility] 2025-01-20 13:11 Generalized anxiety disorder [employer] [facility] 2025-01-20 13:11 Post-traumatic stress disorder, unspecified [employer] 2025-01-20 13:11 Drug induced subacute dyskinesi a [employer] 2025-01-20 13:11 Insomnia, unspecified [facility] 20[facility]-20 13:11 Other chronic pain [employer] [facility] 2025-01-20 13:11 Metabolic encephalopathy [employer] 2025-01-20 13:11 Chronic obstructive pulmonary d isease, unspecified [facility] 2025-01-20 13:11 Chronic respiratory failure, unspecified whether with hypoxia or hypercapnia [facility] 2025-01-20 13:11 Chronic respiratory failure wit h hypoxia [facility] 2025-01-20 13:11 Age-related osteopor osis without current pathological fracture [facility] 2025-01-20 13:11 Tubulo-interstitial nephritis, not specified as acute or chronic [facility] 2025-01-20 13:11 Chronic kidney disease, stage 3 a [facility] 2025-01-20 13:11 Retention of urine, unspecified [facility] 2025-01-20 13:11 Other fracture of up per and lower end of left fibula, initial encounter for closed fracture [facility] 2025-[facility]20 13:11 Other fracture of up per and lower end of left fibula, subsequent encounter for closed fracture with routine healing [facility] 2025-01-20 13:11 Dependence on wheelchair [facility] 2025-01-20 15:18 Sepsis, unspecified organism [facility] 2025-01-20 15:18 Thrombocytopenia, unspecified [facility]20 15:18 Type 2 diabetes shelia itus with other specified complication [facility] 2025-01[facility]20 15:18 Hyperkalemia [facility] 2025-01-20 15:18 [facility] 2025-01-20 15:18 Generalized anxiety disorder [facility] 2025-01-20 15:18 Post-traumatic stress disorder, unspecified [facility] 2025-01-20 15:18 Drug induced subacute dyskinesi a [employer] 2025-01-20 15:18 Insomnia, unspecified [facility] 2025-01-20 15:18 Other [facility] 2025-01-20 15:18 [facility]opathy [facility] 2025-01-20 15:18 Chronic obstructive pulmonary d isease, unspecified [facility] 2025-01-20 15:18 Chronic respiratory failure, unspecified whether with hypoxia or hypercapnia [facility] 2025-01-20 15:18 Chronic respiratory failure wit h hypoxia [facility] 2025-01-20 15:18 Age-related osteopor osis without current pathological fracture [facility] 2025-01-20 15:18 Tubulo-interstitial nephritis, not specified as acute or chronic [facility] 2025-01-20 15:18 Chronic kidney disease, stage 3 a [facility] 2025-01-20 15:18 Retention of urine, unspecified [facility] 2025-01-20 15:18 Other fracture of up per and lower end of left fibula, initial encounter for closed fracture [facility] 2025-[facility]20 15:18 Other fracture of up per and lower end of left fibula, subsequent encounter for closed fracture with routine healing [facility] 2025-01[facility]20 15:18 Dependence on wheelchair [facility] 2025-01-20 16:22 Sepsis, unspecified organism [facility] 2025-01-20 16:22 [facility]rombocytopenia, [facility]20 16:22 Type 2 diabetes shelia itus with other specified complication [facility] 2025-01[facility]20 16:22 Hyperkalemia [facility] 2025-01-20 16:22 [facility] disorder [facility] 2025-01-20 16:22 Generalized anxiety disorder [facility] 2025-01-20 16:22 Post-traumatic stress disorder, unspecified [facility] 2025-01-20 16:22 Drug induced subacute dyskinesi a [employer] 2025-01-20 16:22 Insomnia, unspecified [facility] 2025-01-20 16:22 Other [facility] pain [facility] 2025-01-20 16:22 [facility]abolic [facility]opathy [facility] 2025-01-20 16:22 Chronic obstructive pulmonary d isease, unspecified [facility] 2025-[facility]-20 16:22 Chronic respiratory failure, unspecified whether with hypoxia or hypercapnia [facility] 2025-01-20 16:22 Chronic respiratory failure wit h hypoxia [facility] 2025-01-20 16:22 Age-related osteopor osis without current pathological fracture [employer] 2025-01-20 16:22 Tubulo-interstitial nephritis, not specified as acute or chronic [facility] 2025-01-20 16:22 Chronic kidney disease, stage 3 a [facility] 2025-01-20 16:22 Retention of urine, unspecified [facility] 2025-01-20 16:22 Other fracture of up per and lower end of left fibula, initial encounter for closed fracture [facility] 2025-[facility]20 16:22 Other fracture of up per and lower end of left fibula, subsequent encounter for closed fracture with routine healing [facility] 2025-01[facility]20 16:22 Dependence on wheelchair [facility] 2025-01-21 05:55 Sepsis, unspecified organism [facility] 2025-01-21 05:55 [facility]rombocytopenia, [facility]21 05:55 Type 2 diabetes shelia itus with other specified complication [facility] 2025-01-21 05:55 [facility]kalemia [facility] 2025-01-21 05:55 [facility] 2025-01-21 05:55 Generalized anxiety disorder [facility] 2025-01-21 05:55 Post-traumatic stress disorder, unspecified [facility] 2025-01-21 05:55 Drug induced subacute dyskinesi a [employer] 2025-01-21 05:55 Insomnia, unspecified [facility] 2025-[facility]-21 05:55 [facility] 2025-01-21 05:55 [facility]abolic [facility]opathy [facility] 2025-01-21 05:55 Chronic obstructive pulmonary d isease, unspecified [facility] 05:55 Chronic respiratory failure, unspecified whether with hypoxia or hypercapnia [facility] 2025-01-21 05:55 Chronic respiratory failure wit h hypoxia [facility]25-01-21 05:55 Age-related osteopor osis without current pathological fracture [facility] 2025-01-21 05:55 Tubulo-interstitial nephritis, not specified as acute or chronic [facility] 2025-01-21 05:55 Chronic kidney disease, stage 3 a [facility] 2025-01-21 05:55 Urinary tract infection, site n ot specified [facility]25-01[facility] 05:55 Retention of urine, unspecified [facility] 2025-01-21 05:55 Other fracture of up per and lower end of left fibula, initial encounter for closed fracture [facility] 2025-01-21 05:55 Other fracture of up per and lower end of left fibula, subsequent encounter for closed fracture with routine healing [facility] 2025-01-21 05:55 Dependence on wheelchair [facility] 2025-01-24 09:46 Sepsis, unspecified organism [facility] 2025-01-24 09:46 [facility]ocytopenia, [facility] 09:46 Type 2 diabetes shelia itus with other specified complication [facility] 2025-01-24 09:46 Type 2 diabetes mellitus withou t complications [facility] 2025-01-24 09:46 Hyperkalemia [facility] 2025-01-24 09:46 Bipolar II disorder [facility] 2025-01-24 09:46 Major depressive dis order, single episode, unspecified [facility] 2025-01-24 09:46 Generalized anxiety disorder [facility] 2025-01-24 09:46 Post-traumatic stress disorder, unspecified [facility] 2025-01-24 09:46 Drug induced subacute dyskinesi a [facility] 2025-01-24 09:46 Insomnia, unspecified [facility] 2025-01-24 09:46 Other chronic pain [facility] 2025-01-24 09:46 Encephalopathy, unspecified [facility] 2025-01-24 09:46 Metabolic encephalopathy [facility] 2025-01-24 09:46 Essential (primary) hypertensio n [facility] 2025-01-24 09:46 Acute upper respiratory infecti on, unspecified [facility] 2025-01-24 09:46 Chronic obstructive pulmonary disease with (acute) exacerbation [facility] 2025-01-24 09:46 Chronic obstructive pulmonary d isease, unspecified [facility] 2025-01-24 09:46 Mild intermittent asthma with ( acute) exacerbation [facility] 2025-01-24 09:46 Moderate persistent asthma with (acute) exacerbation [facility] 2025-01-24 09:46 Unspecified asthma with (acute) exacerbation [facility]25-01[facility]24 09:46 Acute respiratory failure with hypoxia [facility] 2025-01-24 09:46 Chronic respiratory failure, unspecified whether with hypoxia or hypercapnia [facility] 2025-01-24 09:46 Chronic respiratory failure wit h hypoxia [facility] 2025-01-24 09:46 Acute and chronic respiratory f ailure with hypoxia [facility] 2025-01-24 09:46 [facility]ul[facility] left lower limb [facility]25-[facility]24 09:46 Pain in right shoulder [facility] 2025-01-24 09:46 Pain in left ankle and joints o f left foot [facility] 2025-01-24 09:46 Age-related osteopor osis without current pathological fracture [facility] 2025-01-24 09:46 Tubulo-interstitial nephritis, not specified as acute or chronic [facility]25-01-24 09:46 Acute kidney failure, unspecifi ed [facility] 2025-01-24 09:46 Chronic kidney disease, stage 3 a [facility] 2025-01-24 09:46 Acute cystitis without hematuri a [facility] 2025-01-24 09:46 Urinary tract infection, site n ot specified [facility] 2025-01-24 09:46 Cough, unspecified [facility] 2025-01-24 09:46 Dyspnea, unspecified [facility] 2025-01-24 09:46 Shortness of breath [facility] 2025-01-24 09:46 Hypoxemia [facility] 2025-01-24 09:46 Unspecified urinary incontinenc e [facility] 2025-01-24 09:46 Retention of urine, unspecified [facility] [employer] [facility] 2025-01-24 09:46 Disorientation, unspecified i [facility] 2025-01-24 09:46 Dizziness and giddiness [facility] 2025-01-24 09:46 Fever, unspecified [facility] 2025-01-24 09:46 Other fatigue [facility] 2025-01-24 09:46 Strain of unspecifie d muscle, fascia and tendon at shoulder and upper arm level, right arm, initial encounter [facility] 2025-01-24 09:46 Other fracture of up per and lower end of left fibula, initial encounter for closed fracture [facility] 2025-01-24 09:46 Other fracture of up per and lower end of left fibula, subsequent encounter for closed fracture with routine healing [facility] 2025-01-24 09:46 Other fracture of le ft lower leg, initial encounter for closed fracture [facility] 2025-01-24 09:46 Fracture of unspecif ied metatarsal bone(s), unspecified foot, initial encounter for closed fracture [facility] 2025-01-24 09:46 Unspecified injury of left foot , initial encounter [facility] 2025-01-24 09:46 Poisoning by fentany l or fentanyl analogs, accidental (unintentional), initial encounter [facility] 2025-01-24 09:46 Toxic effect of unsp ecified spider venom, accidental (unintentional), initial encounter [facility] 2025-01-24 09:46 Procedure and treatm ent not carried out due to patient leaving prior to being seen by health care provider [facility] 2025-01-24 09:46 Encounter for issue of repeat p rescription [facility] 2025-01-24 09:46 Asymptomatic menopausal state [facility] 2025-01-24 09:46 Dependence on wheelchair [employer] 2025-01-25 09:29 Encounter for examin ation and observation following other accident [facility] 2025-01-26 14:06 Fever, unspecified [facility] 2025-01-31 13:41 Other fracture of le ft lower leg, initial encounter for closed fracture [facility] 2025-01-31 13:41 Asymptomatic menopausal state [facility] 2025-01-31 14:49 Hypoxemia [facility] 2025-01-31 14:49 Strain of unspecifie d muscle, fascia and tendon at shoulder and upper arm level, left arm, [facility] encounter [facility] 2025-[facility]31 14:49 Personal history of (healed) tr aumatic fracture [facility] 2025-02-07 11:03 Other fracture of le ft lower leg, initial encounter for closed fracture [facility] 2025-02-07 11:03 Asymptomatic menopausal state [facility] 2025-02-07 11:22 Other fracture of le ft lower leg, initial encounter for closed fracture [facility] 2025-02-07 11:22 Asymptomatic menopausal state [facility] 2025-02-07 12:25 Encounter for screen ing for malignant neoplasm of colon [facility] 2025-02-07 12:25 Encounter for screen ing for malignant neoplasm of rectum [facility] 2025-02-07 12:58 Iron deficiency anemia, unspeci fied [facility] 2025-02-07 12:58 Anemia, unspecified [facility] 2025-02-07 12:58 Type 2 diabetes mellitus withou t complications [facility] 2025-02-07 12:58 Cannabis dependence, uncomplica ercia [facility] 2025-02-07 12:58 Nicotine dependence, unspecifie d, uncomplicated [facility] 2025-02-07 12:58 Bipolar II disorder [facility] 2025-02-07 12:58 Generalized anxiety disorder [facility] 2025-02-07 12:58 Post-traumatic stress disorder, unspecified [facility] 2025-02-07 12:58 Moderate persistent asthma, unc omplicated [facility] 2025-02-07 12:58 Psoriasis, unspecified [facility] 2025-02-07 12:58 Other instability, right knee [facility] 2025-02-07 12:58 Pain in right shoulder [facility] 2025-02-07 12:58 Unspecified urinary incontinenc e [facility] 2025-02-07 12:58 Other fracture of le ft lower leg, initial encounter for closed fracture [facility] 2025-02-07 12:58 Asymptomatic menopausal state [facility] 2025-02-14 14:58 Bipolar II disorder [facility] 2025-02-14 14:58 Post-traumatic stress disorder, unspecified [facility] 2025-02-14 14:58 Insomnia, unspecified [facility] 2025-02-16 15:59 Anemia, unspecified [facility] 2025-02-17 00:04 Cellulitis of left lower limb [facility] 2025-02-17 06:37 Other specified soft tissue dis orders [facility] 2025-02-17 09:28 Other specified soft tissue dis orders [facility] 2025-02-17 09:33 Other specified soft tissue dis orders [facility] 2025-02-17 13:02 Other specified soft tissue dis orders [facility] 2025-02-18 08:36 Anemia, unspecified [facility] 2025-02-18 09:49 Sepsis, unspecified organism [facility] 2025-02-18 09:49 Anemia, unspecified [facility] 2025-02-18 09:49 Thrombocytopenia, unspecified [employer] [facility] 2025-02-18 09:49 Type 2 diabetes shelia itus with other specified complication [facility] 2025-02-18 09:49 Type 2 diabetes mellitus withou t complications [facility] 2025-02-18 09:49 Hyperkalemia [facility] 2025-02-18 09:49 Bipolar II disorder [facility] 2025-02-18 09:49 Major depressive dis order, single episode, unspecified [employer] [facility] 2025-02-18 09:49 Generalized anxiety disorder [facility] 2025-02-18 09:49 Post-traumatic stress disorder, unspecified [facility] 2025-02-18 09:49 Drug induced subacute dyskinesi a [facility] 2025-02-18 09:49 Insomnia, unspecified [facility] 2025-02-18 09:49 Other chronic pain [facility] 2025-02-18 09:49 Encephalopathy, unspecified [facility] 2025-02-18 09:49 Metabolic encephalopathy [facility] 2025-02-18 09:49 Essential (primary) hypertensio n [facility] 2025-02-18 09:49 Acute upper respiratory infecti on, unspecified [facility] 2025-02-18 09:49 Chronic obstructive pulmonary disease with (acute) exacerbation [facility] 2025-02-18 09:49 Chronic obstructive pulmonary d isease, unspecified [facility] 2025-02-18 09:49 Mild intermittent asthma with ( acute) exacerbation [facility] 2025-02-18 09:49 Moderate persistent asthma with (acute) exacerbation [facility] 2025-02-18 09:49 Unspecified asthma with (acute) exacerbation [facility] 2025-02-18 09:49 Acute respiratory failure with hypoxia [facility] 2025-02-18 09:49 Chronic respiratory failure, unspecified whether with hypoxia or hypercapnia [facility] 2025-02-18 09:49 Chronic respiratory failure wit h hypoxia [facility] 2025-02-18 09:49 Acute and chronic respiratory f ailure with hypoxia [facility] 2025-02-18 09:49 Cellulitis of left lower limb [employer] 2025-02-18 09:49 Pain in right shoulder [facility] 2025-02-18 09:49 Pain in left ankle and joints o f left foot [facility] 2025-02-18 09:49 Other specified soft tissue dis orders [facility] 2025-02-18 09:49 Age-related osteopor osis without current pathological fracture [facility] 2025-02-18 09:49 Tubulo-interstitial nephritis, not specified as acute or chronic [facility] 2025-02-18 09:49 Acute kidney failure, unspecifi ed [facility] 2025-02-18 09:49 Chronic kidney disease, stage 3 a [facility] 2025-02-18 09:49 Acute cystitis without hematuri a [facility] 2025-02-18 09:49 Urinary tract infection, site n ot specified [facility] 2025-02-18 09:49 Cough, unspecified [facility] 2025-02-18 09:49 Dyspnea, unspecified [facility] 2025-02-18 09:49 Shortness of breath [facility] 2025-02-18 09:49 Hypoxemia [facility] 2025-02-18 09:49 Retention of urine, unspecified [facility] 2025-02-18 09:49 Disorientation, unspecified i [facility] 2025-02-18 09:49 Dizziness and giddiness [facility] 2025-02-18 09:49 Fever, unspecified [facility] 2025-02-18 09:49 Other fatigue [facility] 2025-02-18 09:49 Strain of unspecifie d muscle, fascia and tendon at shoulder and upper arm level, right arm, initial encounter [facility] 2025-02-18 09:49 Other fracture of up per and lower end of left fibula, initial encounter for closed fracture [facility] 2025-02-18 09:49 Other fracture of up per and lower end of left fibula, subsequent encounter for closed fracture with routine healing [facility] 2025-02-18 09:49 Other fracture of le ft lower leg, initial encounter for closed fracture [facility] 2025-02-18 09:49 Fracture of unspecif ied metatarsal bone(s), unspecified foot, initial encounter for closed fracture [facility] 2025-02-18 09:49 Unspecified injury of left foot , initial encounter [facility] 2025-02-18 09:49 Poisoning by fentany l or fentanyl analogs, accidental (unintentional), initial encounter [facility] 2025-02-18 09:49 Toxic effect of unsp ecified spider venom, accidental (unintentional), initial encounter [facility] 2025-02-18 09:49 Procedure and treatm ent not carried out due to patient leaving prior to being seen by health care provider [facility] 2025-02-18 09:49 Encounter for issue of repeat p rescription [facility] 2025-02-18 09:49 [facility] state [facility] 09:49 Dependence on wheelchair [facility] 2025-02-18 16:01 Anemia, unspecified [facility] 2025-02-18 16:01 Thrombocytopenia, unspecified [facility] 2025-02-18 16:01 Other specified soft tissue dis orders [facility] 2025-02-18 16:01 Encounter for genera l adult medical examination without abnormal findings [facility] Results/Labs test date facility value unit notes [...] effective in some patients. TETRACYCLINE 2024-12-01 14:21 [facility] <=1 (missing) (missing) TRIMETHOPRIM/SUL FAMETHOXAZOLE 2024-12-01 14:21 [facility] <=10 (missing) (missing) LEVOFLOXACIN 2024-12-01 14:21 [facility] 0.25 (missing) (missing) OXACILLIN OSITO 2024-12-01 14:21 [facility] 0.5 (missing) (missing) QUINUPRISTIN/LADARIUS FOPRISTIN 2024-12-01 14:21 [facility] 0.5 (missing) (missing) LINEZOLID 2024-12-01 14:21 [facility] 2 (missing) (missing) CUL,WOUND (AEROBIC) 2024-12-01 14:21 [facility] 22+ GROWTH (missing) (missing) CUL,WOUND (AEROBIC) 2024-12-01 14:21 [facility] CC.6COLONY COUNT (missing) (missing) CUL,WOUND (AEROBIC) 2024-12-01 14:21 [facility] FEW WBC'S (missing) (missing) CUL,WOUND (AEROBIC) 2024-12-01 14:21 [facility] GRAM STAIN: (missing) (missing) CUL,WOUND (AEROBIC) 2024-12-01 14:21 [facility] IDMICID/OSITO COM* (missing) (missing) CUL,WOUND (AEROBIC) 2024-12-01 14:21 [facility] RARE GRAM POSITIVE COCCI (missing) (missing) CUL,WOUND (AEROBIC) 2024-12-01 14:21 [facility] SENSISENSITIVITIES TO FOLLOW (missing) (missing) O:STAAUR 2024-12-01 14:21 [facility] STAAURSTAPHYLOCOCCUS AUREUSSTAPHYLOCOCCUS AUREUS (missing) (missing) Result panel 2 LIPASE 2024-12-04 09:22 [facility] < 10 u/l As of September 2022 testing method has changed, this may include reference ranges. NUCLEATED RED BLOOD CELLS AUTO 2024-12-04 09:22 [facility] 0.0 /100wbc (missing) BASOPHILS # (AUTO) 2024-12-04 09:22 [facility] 0.0 10 3/ul (missing) NRBC ABSOLUTE COUNT (AUTO) 2024-12-04 09:22 [facility] 0.00 x10 3/ul (missing) EOSINOPHILS # (AUTO) 2024-12-04 09:22 [facility] 0.1 10 3/ul (missing) BILIRUBIN,TOTAL 2024-12-04 09:22 [facility] 0.5 mg /dl As of September 2022 testing method has changed, this may include reference ranges. ALBUMIN/GLOBULIN RATIO 2024-12-04 09:22 [facility] 1.0 (missing) (missing) MONOCYTES # (AUTO) 2024-12-04 09:22 [facility] 1.2 10 3/ul (missing) CREATININE 2024-12-04 09:22 [facility] 1.3 mg/dl As of September 2022 testing method has changed, this may include reference ranges. LYMPHOCYTES # (AUTO) 2024-12-04 09:22 [facility] 1.5 10 3/ul (missing) HGB - HEMOGLOBIN 2024-12-04 09:22 [facility] 10.8 g /dl (missing) PLT - PLATELET COUNT 2024-12-04 09:22 [facility] 118 10 3/ul (missing) NEUTROPHILS # (AUTO) 2024-12-04 09:22 [facility] 12.0 10 3/ul (missing) ALT ALANINE AMINOTRANSFERASE 2024-12-04 09:22 [facility] 13 iu/l As of September 2022 testing method has changed, this may include reference ranges. SODIUM 2024-12-04 09:22 [facility] 138 mmol/l (missing) RED CELL DISTRIBUTION WIDTH 2024-12-04 09:22 [facility] 14.9 % (missing) WHITE BLOOD COUNT 2024-12-04 09:22 [facility] 15.1 x10 3/ul (missing) AST ASPARTATE AMINOTRANSFERASE 2024-12-04 09:22 [facility] 19 iu/l As of September 2022 testing method has changed, this may include reference ranges. BUN - BLOOD UREA NITROGEN 2024-12-04 09:22 [employer] [facility] 22 mg/dl As of Sep testing method has changed, this may include reference ranges. ANION GAP 2024-12-04 09:22 [facility] 3.0 (missing ) (missing) ALBUMIN 2024-12-04 09:22 [facility] 3.2 g/dl As of September 2022 testing method has changed, this may include reference ranges. GLOBULIN 2024-12-04 09:22 [facility] 3.3 g/dl (missing) RED BLOOD COUNT 2024-12-04 09:22 [facility] 3.60 10 6/ul (missing) MEAN CORPUSCULAR HEMOGLOBIN 2024-12-04 09: [facility] 30.0 pg (missing) MEAN CORPUSCULAR HGB CONC 2024-12-04:22 [facility] 30.7 g/dl (missing) HCT - HEMATOCRIT 2024-12-04: [facility] 35.2 % (missing) CARBON DIOXIDE - CO2 2024-12-04: [facility] 36 mmol/l As of September 2022 testing method has changed, this may include reference ranges. POTASSIUM 2024-12-04: [facility] 4.4 mmol/l As of September 2022 testing method has changed, this may include reference ranges. GFR - MDRD 2024-12-04: [facility] 42 (zenon salcedo) The IDMS-traceable MDRD Study [...] ardization, last updated May 2011. TOTAL PROTEIN 2024-12-04: [facility] 6.5 g/dl As of September 2022 testing method has changed, this may include reference ranges. ALKALINE PHOSPHATASE 2024-12-04: [facility] 60 iu/l As of September 2022 testing method has changed, this may include reference ranges. CALCIUM 2024-12-04: [facility] 8.9 mg/dl As of September 2022 testing method has changed, this may include reference ranges. GLUCOSE 2024-12-04: [facility] 88 mg/dl As of September 2022 testing method has changed, this may include reference ranges. MEAN PLATELET VOLUME 2024-12-04: [facility] 9.4 fl (missing) MEAN CORPUSCULAR VOLUME 2024-12-04 09:22 [facility] 97.8 fl (missing) CHLORIDE 2024-12-04 09:22 [facility] 99 mmol/l As of September 2022 testing method has changed, this may include reference ranges. Result panel 3 UROBILINOGEN,URINE 2024-12-04 10:45 [facility] 0.2 (NORMAL) e.u./dl (missing) SPECIFIC GRAVITY,URINE 2024-12-04 10:45 [facility] 1.020 (missing) (missing) PROTEIN,URINE 2024-12-04 10:45 [facility] 30 mg/dl (missing) WBC,URINE 2024-12-04 10:45 [facility] 6-10 /hpf (missing) PH,URINE 2024-12-04 10:45 [facility] 6.5 ph (missing) CLARITY,URINE 2024-12-04 10:45 [...] NGNo growth (missing) (missing) BACTERIA,URINE 2024-12-04 10:45 [facility] None Seen /hpf (missing) RBC,URINE 2024-12-04 10:45 [facility] None Seen /hpf (missing) SQUAMOUS EPITHELIAL CELL,UR 2024-12-04 10:45 [facility] RARE Squamous (missing) (missing) LEUKOCYTE ESTERASE, URINE 2024-12-04 10:45 [facility] TRACE (missing) (missing) KETONES,URINE (UA) 2024-12-04 10:45 [facility] TRACE mg/dl (missing) COLOR,URINE 2024-12-04 10:45 [facility] YELLOW (missing) URINE CATHETERIZED Result panel 4 SALICYLATE 2024-12-10 15:28 [facility] < 1.5 mg/dl Salicyalte Theraputic Range <30mg/dL As of September 2022 testing method has changed, this may include reference ranges. ETOH - ETHANOL 2024-12-10 15:28 [facility] < 10.0 mg/dl Blood Alcohol Levels Level [...] NUCLEATED RED BLOOD CELLS AUTO 2024-12-10 15:28 [facility] 0.0 /100wbc (missing) NRBC ABSOLUTE COUNT (AUTO) 2024-12-10 15:28 [facility] 0.00 x10 3/ul (missing) BASOPHILS # (AUTO) 2024-12-10 15:28 [facility] 0.1 10 3/ul (missing) BILIRUBIN,TOTAL 2024-12-10 15:28 [facility] 0.2 mg/dl As of September 2022 testing method has changed, this may include reference ranges. EOSINOPHILS # (AUTO) 2024-12-10 15:28 [facility] 0.3 10 3/ul (missing) ALBUMIN/GLOBULIN RATIO 2024-12-10 15:28 [facility] 1.0 (missing) (missing) MONOCYTES # (AUTO) 2024-12-10 15:28 [facility] 1.1 10 3/ul (missing) CREATININE 2024-12-10 15:28 [facility] 1.6 mg/dl As of September 2022 testing method has changed, this may include reference ranges. HGB - HEMOGLOBIN 2024-12-10 15:28 [facility] 10.5 g/dl (missing) WHITE BLOOD COUNT 2024-12-10 15:28 [facility] 10.8 x10 3/ul (missing) MEAN CORPUSCULAR VOLUME 2024-12-10 15:28 [facility] 100.6 fl (missing) GLUCOSE 2024-12-10: [facility] 119 mg/dl As of September 2022 testing method has changed, this may include reference ranges. SODIUM 2024-12-10 15:28 [facility] 136 mmol/l (missing) AST ASPARTATE AMINOTRANSFERASE 2024-12-10 15: [facility] 14 iu/l As of September 2022 testing method has changed, this may include reference ranges. RED CELL DISTRIBUTION WIDTH 2024-12-10 15:28 [facility] 15.1 % (missing) LIPASE 2024-12-10 15:28 [facility] 17 u/l As of September 2022 testing method has changed, this may include reference ranges. PLT - PLATELET COUNT 2024-12-10 15:28 [facility] 187 10 3/ul (missing) MAGNESIUM 2024-12-10 15:28 [facility] 2.0 mg/dl As of September 2022 testing method has changed, this may include reference ranges. LYMPHOCYTES # (AUTO) 2024-12-10 15:28 [facility] 2.1 10 3/ul (missing) MEAN CORPUSCULAR HGB CONC 2024-12-10 15:28 [facility] 29.7 g/dl (missing) MEAN CORPUSCULAR HEMOGLOBIN 2024-12-10 15:28 [facility] 29.8 pg (missing) ANION GAP 2024-12-10 15:28 [facility] 3.0 (missing) (missing) RED BLOOD COUNT 2024-12-10 15:28 [facility] 3.52 10 6/ul (missing) GLOBULIN 2024-12-10 15:28 [facility] 3.6 g/dl (missing) ACETAMINOPHEN 2024-12-10 15:28 [facility] 3.6 ug/ml Acetaminophen Therapeutic concentration 10-30 ug/mLHepatotoxicity concentrations - >150 ug/mL at 4hr after ingestion >75 ug/mL at 8hr after ingestion >40 ug/mL at 12hr after ingestion As of September 2022 testing method has changed, this may include reference ranges. ALBUMIN 2024-12-10 15:28 [facility] 3.7 g/dl As of September 2022 testing method has changed, this may include reference ranges. BUN - BLOOD UREA NITROGEN 2024-12-10 15: [facility] 32 mg/dl As of September 2022 testing method has changed, this may include reference ranges. GFR - MDRD 2024-12-10: [facility] 33 (missing) The IDMS-traceable MDRD Study Equation [...] for patients older than 70. References: http://www.nkdep.ni h.gov/lab-evaluatio n/gfr/creatinine-st and ardization, last updated May 2011. HCT - HEMATOCRIT 2024-12-10:28 [facility] 35.4 % (missing) CARBON DIOXIDE - CO2 2024-12-10 15:28 [facility] 36 mmol/l As of September 2022 testing method has changed, this may include reference ranges. POTASSIUM 2024-12-10:28 [facility] 4.9 mmol/l As of September 2022 testing method has changed, this may include reference ranges. VALPROIC ACID (DEPAKOTE) 2024-12-10 15:28 [facility] 42.5 ug/ml Valproic Acid Therapeutic Range Therapeutic 98872 ug/mL Toxicity may occur at levels of 698057 ug/mL As of September 2022 testing method has changed, this may include reference ranges. ALKALINE PHOSPHATASE 2024-12-10 15:28 [facility] [employer] 58 iu/l As of September 2022 testing method has changed, this may include reference ranges. THYROID STIMULATING HORMONE 2024-12-10 15:28 [facility] [employer] 6.35 uiu/ml (missing) NEUTROPHILS # (AUTO) 2024-12-10 15: [facility] 7.0 10 3/ul (missing) TOTAL PROTEIN 2024-12-10:28 [facility] 7.3 g/dl As of September 2022 testing method has changed, this may include reference ranges. ALT ALANINE AMINOTRANSFERASE 2024-12-10: [facility] 8 iu/l As of September 2022 testing method has changed, this may include reference ranges. MEAN PLATELET VOLUME 2024-12-10: [facility] 9.4 fl (missing) CALCIUM 2024-12-10: [facility] 9.6 mg/dl As of September 2022 testing method has changed, this may include reference ranges. CK- CREATINE KINASE 2024-12-10: [facility] [employer] 90 iu/l As of September 2022 testing method has changed, this may include reference ranges. CHLORIDE 2024-12-10: [facility] 97 mmol/l As of September 2022 testing method has changed, this may include reference ranges. Result panel 5 WBC,URINE 2024-12-10 17:09 [facility] 0-3 /hpf (missing) RBC,URINE 2024-12-10 17:09 [facility] 0-5 /hpf (missing) UROBILINOGEN,URINE 2024-12-10 17:09 [email or web address] 0.2 (NORMAL) e.u./dl (missing) SPECIFIC GRAVITY,URINE 2024-12-10 17:09 [facility] 1.020 (missin g) (missing) PH,URINE 2024-12-10 17:09 [facility] 6.0 ph (missing) CLARITY,URINE 2024-12-10 17:09 [facility] CLEAR (missin g) (missing) MUDS CUTOFF CONCENTRATIONS 2024-12-10 17:09 [facility] CUTOFF CONC BELOW: (missin g) [facility] uses the PROFILE-V KON[employer] Drugs of Abuse Test System. It detects [...] BUP Buprenorphine (Buprenorphine) 10 ng/mL THC Cannabinoids (05-waz-3-carboxy- 9-THC) 50 ng/mL TCA Tricyclic Antidepressants (Desipramine) 300 ng/mL All drug screen results are unconfirmed. Results are to be used for medical (i.e. treatment) purposes only. Unconfirmed screening results must not be used for non-medical purposes (e.g., employment testing, legal testing). CUL, URINE 2024-12-10 17:09 [facility] CXPCULTURE IN PROGRESS. RESULTS TO FOLLOW. (missin g) (missing) SQUAMOUS EPITHELIAL CELL,UR 2024-12-10 17:09 [facility] FEW Squamous (missin g) (missing) EPITHELIAL CELLS,UR 2024-12-10 17:09 [facility] FEW Transitional /hpf (missing) UR CULTURE IF IND 2024-12-10 17:09 [facility] INDICATED (missin g) (missing) URINE MICROSCOPIC INDICATED? 2024-12-10 17:09 [facility] INDICATED (missin g) (missing) AMPHETAMINE SCREEN,URINE 2024-12-10 17:09 [facility] NEGATIVE (missin g) (missing) BARBITURATE SCREEN,UR 2024-12-10 17:09 [facility] NEGATIVE (missin g) (missing) BUPRENORPHINE SCREEN, URINE 2024-12-10 17:09 [facility] NEGATIVE (missin g) (missing) COCAINE SCREEN [...] clinical presentation GLUCOSE, URINE (UA) 2024-12-10 17:09 [facility] NEGATIVE mg/dl (missing) KETONES,URINE (UA) 2024-12-10 17:09 [facility] NEGATIVE mg/dl (missing) CUL, URINE 2024-12-10 17:09 [facility] NGNo growth (missin g) (missing) FENTANYL SCREEN, URINE 2024-12-10 17:09 [facility] Negative (missin g) [employer] uses LZI Fentanyl (Q) Enzyme Immunoassay. RESULT [...] legal purposes. BENZODIAZEPINES SCREEN, URINE 2024-12-10 17:09 [facility] POSITIVE (missin g) (missing) OXYCODONE SCREEN, URINE 2024-12-10 17:09 [facility] POSITIVE (missin g) (missing) THC CANNABINOID SCREEN, URINE 2024-12-10 17:09 [facility] POSITIVE (missin g) (missing) TRICYCLIC ANTIDEPRESSANT,URINE 2024-12-10 17:09 [facility] POSITIVE (missin g) (missing) EPITHELIAL CELLS,UR 2024-12-10 17:09 [facility] RARE Renal Tubular /hpf (missing) BACTERIA,URINE 2024-12-10 17:09 [facility] Rare /hpf (missing) LEUKOCYTE ESTERASE, URINE 2024-12-10 17:09 [facility] TRACE (missin g) (missing) OCCULT BLOOD,URINE 2024-12-10 17:09 [facility] TRACE (missin g) (missing) PROTEIN,URINE 2024-12-10 17:09 [facility] TRACE mg/dl (missing) COLOR,URINE 2024-12-10 17:09 [facility] YELLOW (missin g) URINE CATHETERIZED Result panel 6 VBG PO2 2024-12-10 17:56 [facility] 177.4 mmhg (missing) VBG HCO3 2024-12-10 17:56 [facility] 32.6 mmol/l (missing) VBG TOTAL CO2 2024-12-10 17:56 [facility] 34.2 mmol /l (missing) VBG PCO2 2024-12-10 17:56 [facility] 51.8 mmhg (missing) VBG PH 2024-12-10 17:56 [facility] 7.403 (missing ) (missing) VBG BASE EXCESS 2024-12-10 17:56 [facility] 7.7 mm ol/l (missing) [facility] OXYGEN SATURATION 2024-12-10 17:56 [facility] 99.0 % (missing) Result panel 7 CREATININE 2024-12-11 08:55 [facility] 1.2 mg/dl As of September 2022 testing method has changed, this may include reference ranges. MEAN CORPUSCULAR VOLUME 2024-12-11 08:55 [facility] 100.3 fl (missing) CHLORIDE 2024-12-11 08:55 [facility] 102 mmol/l As of September 2022 testing method has changed, this may include reference ranges. SODIUM 2024-12-11 08:55 [facility] 139 mmol/l (missing) RED CELL DISTRIBUTION WIDTH 2024-12-11 08:55 [facility] 14.7 % (mi ssing) PLT - PLATELET COUNT 2024-12-11 08:55 [facility] 177 10 3/ul (missing) BUN - BLOOD UREA NITROGEN 2024-12-11 08:55 [facility] 22 mg/dl As of Sep testing method has changed, this may include reference ranges. MEAN CORPUSCULAR HGB CONC 2024-12-11 08:55 [facility] 29.1 g/dl (missing) MEAN CORPUSCULAR HEMOGLOBIN 2024-12-11 08:55 [facility] 29.2 pg (missing) ANION GAP 2024-12-11 08:55 [facility] 3.0 (missing ) (missing) RED BLOOD COUNT 2024-12-11 08:55 [facility] 3.39 10 6/ul (missing) CARBON DIOXIDE - CO2 2024-12-11 08:55 [facility] 34 mmol/l As of September 2022 testing method has changed, this may include reference ranges. HCT - HEMATOCRIT 2024-12-11 08:55 [facility] 34.0 % (missing) POTASSIUM 2024-12-11 08:55 [facility] 4.8 mmol/l As of September 2022 testing method has changed, this may include reference ranges. GFR - MDRD 2024-12-11 08:55 [facility] 46 (in g) The IDMS-traceable MDRD Study [...] May 2011. WHITE BLOOD COUNT 2024-12-11 08:55 [facility] 8.7 x10 3/ul (missing) MEAN PLATELET VOLUME 2024-12-11 08:55 [email or web address] 8.9 fl (missing) CALCIUM 2024-12-11 08:55 [facility] [employer] 8.9 mg/dl As of September 2022 testing method has changed, this may include reference ranges. GLUCOSE 2024-12-11 08:55 [facility] 85 mg/dl As of September 2022 testing method has changed, this may include reference ranges. HGB - HEMOGLOBIN 2024-12-11 08:55 [facility] 9.9 g /dl (missing) Result panel 8 NUCLEATED RED BLOOD CELLS AUTO 2025-01-16 09:17 [facility] 0.0 /100wbc (missing) BASOPHILS # (AUTO) 2025-01-16 09:17 [email or web address] 0.0 10 3/ul (missing) EOSINOPHILS # (AUTO) 2025-01-16 09:17 [email or web address] 0.0 10 3/ul (missing) NRBC ABSOLUTE COUNT (AUTO) 2025-01-16 09:17 [email or web address] 0.00 x10 3/ul (missing) BILIRUBIN,TOTAL 2025-01-16 09:17 [facility] 0.5 mg/dl As of September 2022 testing method has changed, this may include reference ranges. ALBUMIN/GLOBULIN RATIO 2025-01-16 09:17 [facility] 0.9 (missing) (missing) LYMPHOCYTES # (AUTO) 2025-01-16 09:17 [facility] 1.1 10 3/ul (missing) CREATININE 2025-01-16 09:17 [email or web address] 1.3 mg/dl As of September 2022 testing method has changed, this may include reference ranges. MONOCYTES # (AUTO) 2025-01-16 09:17 [facility] 1.6 10 3/ul (missing) MAGNESIUM 2025-01-16 09:17 [email or web address] 1.8 mg/dl As of September 2022 testing method has changed, this may include reference ranges. HGB - HEMOGLOBIN 2025-01-16 09:17 [email or web address] 11.0 g/dl (missing) WHITE BLOOD COUNT 2025-01-16 09:17 [facility] 11.9 x10 3/ul (missing) GLUCOSE 2025-01-16 09:17 [facility] 114 mg/dl As of September 2022 testing method has changed, this may include reference ranges. AST ASPARTATE AMINOTRANSFERASE 2025-01-16 09:17 [facility] 12 iu/l As of September 2022 testing method has changed, this may include reference ranges. PLT - PLATELET COUNT 2025-01-16 09:17 [facility] 135 10 3/ul (missing) SODIUM 2025-01-16 09:17 [facility] 137 mmol/l (missing) RED CELL DISTRIBUTION WIDTH 2025-01-16 09:17 [facility] 14.9 % (missing) RBC MORPHOLOGY (MULTIPLE) 2025-01-16 09:17 [facility] 2+ ANISOCYTOSIS (missing) (missing) ANION GAP 2025-01-16 09:17 [facility] 2.0 (missing) (missing) MEAN CORPUSCULAR HEMOGLOBIN 2025-01-16 09:17 [facility] 29.3 pg (missing) ALBUMIN 2025-01-16 09:17 [facility] 3.6 g/dl As of September 2022 testing method has changed, this may include reference ranges. RED BLOOD COUNT 2025-01-16 09:17 [facility] 3.75 10 6/ul (missing) GLOBULIN 2025-01-16 09:17 [facility] 3.8 g/dl (missing) BUN - BLOOD UREA NITROGEN 2025-01-16 09:17 [facility] 30 mg/dl As of September 2022 testing method has changed, this may include reference ranges. MEAN CORPUSCULAR HGB CONC 2025-01-16 09:17 [facility] 30.0 g/dl (missing) CARBON DIOXIDE - CO2 2025-01-16 09:17 [facility] 36 mmol/l As of September 2022 testing method has changed, this may include reference ranges. HCT - HEMATOCRIT 2025-01-16 09:17 [facility] 36.7 % (missing) POTASSIUM 2025-01-16 09:17 [facility] 4.7 mmol/l As of September 2022 testing method has changed, this may include reference ranges. GFR - MDRD 2025-01-16 09:17 [facility] 42 (missing) The IDMS-traceable MDRD Study Equation [...] updated May 2011. ALKALINE PHOSPHATASE 2025-01-16 09:17 [facility] 51 iu/l As of September 2022 testing method has changed, this may include reference ranges. ALT ALANINE AMINOTRANSFERASE 2025-01-16 09:17 [facility] 6 iu/l As of September 2022 testing method has changed, this may include reference ranges. TOTAL PROTEIN 2025-01-16 09:17 [facility] 7.4 g/dl As of September 2022 testing method has changed, this may include reference ranges. NEUTROPHILS # (AUTO) 2025-01-16 09:17 [facility] 9.1 10 3/ul (missing) CALCIUM 2025-01-16 09:17 [facility] 9.1 mg/dl As of September 2022 testing method has changed, this may include reference ranges. MEAN PLATELET VOLUME 2025-01-16 09:17 [facility] 9.7 fl (missing) MEAN CORPUSCULAR VOLUME 2025-01-16 09:17 [facility] 97.9 fl (missing) CHLORIDE 2025-01-16 09:17 [facility] 99 mmol/l As of September 2022 testing method has changed, this may include reference ranges. SLIDE REVIEW? 2025-01-16 09:17 [facility] Indicated (missing) (missing) Result panel 9 WBC,URINE 2025-01-16 09:25 [facility] >25 /hpf (missing) GENTAMICIN 2025-01-16 09:25 [facility] >=16 (veronica ng) (missing) AMPICILLIN/SULBAC PORRAS 2025-01-16 09:25 [facility] >=32 (veronica ng) (missing) AMPICILLIN 2025-01-16 09:25 [facility] >=32 (veronica ng) The presence of an ESBL-producing organism in a clinical infection can result in treatment failure if third generation Cephalosporins (e.g., Ceftazidime, Cefotaxime, and Ceftriazone) and Monobactams (e.g., Aztreonam) drugs are used. ESBLs do not affect Cephamycins (e.g., Cefoxitin and Cefotetan) or Carbapenems (e.g., Meropenem or Imipenem). Reference: CDC-Centers for Disease Control and Prevention. www.cdc.gov/autumn/ settings/lab/lab [place] [address], 01/2010. AMPICILLIN 2025-01-16 09:25 [facility] >=32 (veronica ng) This organism is NEGATIVE for Extended Spectrum Beta Lactamase TRIMETHOPRIM/SULF AMETHOXAZOLE 2025-01-16 09:25 [facility] >=320 (veronica ng) (missing) CEFAZOLIN 2025-01-16 09:25 [facility] >=64 (veronica ng) (missing) CEFTRIAXONE 2025-01-16 09:25 [facility] >=64 (veronica ng) (missing) CEFEPIME 2025-01-16 09:25 [facility] <=0.12 (veronica ng) (missing) ERTAPENEM 2025-01-16 09:25 [facility] <=0.12 (veronica ng) (missing) LEVOFLOXACIN 2025-01-16 09:25 [facility] <=0.12 (veronica ng) (missing) CEFTRIAXONE 2025-01-16 09:25 [facility] <=0.25 (veronica ng) (missing) CIPROFLOXACIN 2025-01-16 09:25 [facility] <=0.25 (veronica ng) (missing) IMIPENEM 2025-01-16 09:25 [facility] <=0.25 (veronica ng) (missing) GENTAMICIN 2025-01-16 09:25 [facility] <=1 (veronica ng) (missing) TOBRAMYCIN 2025-01-16 09:25 [facility] <=1 ([facility]) (missing) NITROFURANTOIN 2025-01-16 09:25 [facility] <=16 ([facility]) (missing) TRIMETHOPRIM/SULF AMETHOXAZOLE 2025-01-16 09:25 [facility] <=20 ([facility]) (missing) CEFAZOLIN 2025-01-16 09:25 [facility] <=4 ([facility]) (missing) PIPERACILLIN/TAZO BACTAM 2025-01-16 09:25 [facility] <=4 ([facility]) (missing) UROBILINOGEN,URIN E 2025-01-16 09:25 [facility] 0.2 (NORMAL) e.u./d l (missing) CIPROFLOXACIN 2025-01-16 09:25 [facility] 0.5 ([facility]) (missing) IMIPENEM 2025-01-16 09:25 [facility] 0.5 ([facility]) (missing) LEVOFLOXACIN 2025-01-16 09:25 [facility] 1 ([facility]) (missing) SPECIFIC GRAVITY,URINE 2025-01-16 09:25 [facility] [employer] 1.010 ([facility]) (missing) PROTEIN,URINE 2025-01-16 09:25 [facility] 100 mg/dl (missing) CUL, URINE 2025-01-16 09:25 [facility] 100>100,000 CFU/mL ([facility]) (missing) CEFEPIME 2025-01-16 09:25 [facility] 16 ([facility]) (missing) AMPICILLIN/SULBAC PORRAS 2025-01-16 09:25 [facility] 4 ([facility]) (missing) RBC,URINE 2025-01-16 09:25 [facility] 6-10 /hpf (missing) NITROFURANTOIN 2025-01-16 09:25 [facility] 64 ([facility]) (missing) TOBRAMYCIN 2025-01-16 09:25 [facility] 8 ([facility]) (missing) PH,URINE 2025-01-16 09:25 [facility] 8.0 ph (missing) O:ESCCOL.ESB 2025-01-16 09:25 [facility] ESCCOL.ESBESBL-producin g E COLIESBL-producing E COLI ([facility]) (missing) SQUAMOUS EPITHELIAL CELL,UR 2025-01-16 09:25 [facility] FEW [employer] ([facility]) (missing) CUL, URINE 2025-01-16 09:25 [facility] GNRGRAM NEGATIVE PEARL TO BE FURTHER IDENTIFIED ([facility]) (missing) CLARITY,URINE 2025-01-16 09:25 [facility] HAZY ([facility]) (missing) CUL, URINE 2025-01-16 09:25 [facility] IDMIC.1ORG 1 ID/OSITO COM* ([facility]) (missing) CUL, URINE 2025-01-16 09:25 [facility] [employer] IDMIC.2ORG 2 ID/OSITO COM* ([facility]) (missing) UR CULTURE IF IND 2025-01-16 09:25 [facility] INDICATED ([facility]) (missing) URINE MICROSCOPIC INDICATED? 2025-01-16 09:25 [facility] INDICATED ([facility]) (missing) O:KLEPNE 2025-01-16 09:25 [facility] KLEPNEKLEBSIELLA PNEUMONIAEKLEBSIELLA PNEUMONIAE ([facility]) (missing) LEUKOCYTE ESTERASE, URINE 2025-01-16 09:25 [facility] [facility] LARGE ([facility]) (missing) OCCULT BLOOD,URINE 2025-01-16 09:25 [facility] MODERATE ([facility]) (missing) BACTERIA,URINE 2025-01-16 09:25 [facility] Many /hpf (missing) BILIRUBIN,URINE 2025-01-16 09:25 [facility] NEGATIVE ([facility]) Bilirubin can be influenced by color interference. Please correlate positive results with clinical presentation GLUCOSE, URINE (UA) 2025-01-16 09:25 [facility] NEGATIVE mg/dl (missing) KETONES,URINE (UA) 2025-01-16 09:25 [facility] NEGATIVE mg/dl (missing) CUL, URINE 2025-01-16 09:25 [facility] ORG.1PRELIM ORG ID* (veronica ng) (missing) CUL, URINE 2025-01-16 09:25 [facility] ORG.2PRELIM ORG ID* (veronica ng) (missing) NITRITE,URINE 2025-01-16 09:25 [facility] POSITIVE (veronica ng) (missing) CUL, URINE 2025-01-16 09:25 [facility] Pending (veronica ng) (missing) CUL, URINE 2025-01-16 09:25 [facility].1ORG 1 CC* (veronica ng) (missing) CUL, URINE 2025-01-16 09:25 [facility].2ORG 2 CC* (veronica ng) (missing) CUL, URINE 2025-01-16 09:25 [facility].6COLONY COUNT (veronica ng) (missing) COLOR,URINE 2025-01-16:25 [facility] YELLOW (veronica ng) URINE CATHETERIZED CUL, URINE 2025-01-16 09:25 [facility] YIDENTIFICATION AND SENSITIVITIES TO FOLLOW (veronica ng) (missing) Result panel 10 SARS-CoV-2 -RESP PCR PANEL 2025-01-16:27 [facility] NOT DETECTED (missing) A negative test result for this test indicates that SARS-CoV-2 RNA was not present in the specimen above the limit of detection. Testing performed on the [employer] RP2.1 Panel, a multiplexed nucleic acid repiratory [...] SARS-CoV-2 virus. INFLUENZA A- RESP PCR PANEL 2025-01-16 09: [facility] NOT DETECTED (missing) Influenza A including subtypes H1, H3, and H1-2009 not detected by the [employer] RP2.1 Panel, a multiplexed nucleic acid test intended for the simultaneous qualitative detection and differentiation of nucleic acids from multiple viral and bacterial respiratory organisms. B. PARAPERTUSSIS- RESP PCR FLYNN 2025-01-16 09:27 [facility] NOT DETECTED (missing) Negative results for this organism do not preclude infection with this organism and may require additional laboratory testing (e.g., bacterial and viral culture, immunofluorescence, and radiography) when evaluating a patient with possible respiratory tract infection. B. PERTUSSIS- RESP PCR PANEL 2025-01-16: [facility] NOT DETECTED (missing) Negative results for this organism do not preclude infection with this organism and may require additional laboratory testing (e.g., bacterial and viral culture, immunofluorescence, and radiography) when evaluating a patient with possible respiratory tract infection. C. PNEUMONIAE- RESP PCR PANEL 2025-01-16: [facility] NOT DETECTED (missing) Negative results for this organism do not preclude infection with this organism and may require additional laboratory testing (e.g., bacterial and viral culture, immunofluorescence, and radiography) when evaluating a patient with possible respiratory tract infection. M. PNEUMONIAE- RESP PCR PANEL 2025-01-16: [facility] NOT DETECTED (missing) Negative results for this organism do not preclude infection with this organism and may require additional laboratory testing (e.g., bacterial and viral culture, immunofluorescence, and radiography) when evaluating a patient with possible respiratory tract infection. CORONAVIRUS 229E-RESP PCR 2025-01-16: [facility] NOT DETECTED (missing) Negative results in the setting ofa respiratory illness may be due to infection with pathogens not detected by this test, or lower respiratory tract infection that may not be detected by nasopharyngeal specimen. CORONAVIRUS HKU1-RESP PCR 2025-01-16:27 [facility] NOT DETECTED (missing) Negative results in the setting ofa respiratory illness may be due to infection with pathogens not detected by this test, or lower respiratory tract infection that may not be detected by nasopharyngeal specimen. CORONAVIRUS HP52-DOOC PCR 2025-01-16: [facility] NOT DETECTED (missing) Negative results in the setting ofa respiratory illness may be due to infection with pathogens not detected by this test, or lower respiratory tract infection that may not be detected by nasopharyngeal specimen. CORONAVIRUS HP68-YZCY PCR 2025-01-16:27 [facility] NOT DETECTED (missing) Negative results [...] by nasopharyngeal specimen. RHINOVIRUS/ENTEROVI [place] 2025-01-16 09:27 [facility] NOT DETECTED (missing) Negative results in the setting ofa respiratory illness may be due to infection with pathogens not detected by this test, or lower respiratory tract infection that may not be detected by nasopharyngeal specimen. RSV- RESP PCR PANEL 2025-01-16 09:27 [facility] NOT DETECTED (missing) Negative results in the setting ofa respiratory illness may be due to infection with pathogens not detected by this test, or lower respiratory tract infection that may not be detected by nasopharyngeal specimen. ADENOVIRUS - RESP PCR PANEL 2025-01-16 09:27 [facility] NOT DETECTED (missing) YES Y NO NO NO NO YES NO Negative results in the setting ofa respiratory illness may be due to infection with pathogens not detected by this test, or lower respiratory tract infection that may not be detected by nasopharyngeal specimen. Result panel 11 NUCLEATED RED BLOOD CELLS AUTO 2025-01-17 16:14 [facility] 0.0 /100wbc (missing) BASOPHILS # (AUTO) 2025-01-17 16:14 [facility] 0.0 10 3/ul (missing) NRBC ABSOLUTE COUNT (AUTO) 2025-01-17 16:14 [facility] 0.00 x10 3/ul (missing) EOSINOPHILS # (AUTO) 2025-01-17 16:14 [facility] 0.1 10 3/ul (missing) BILIRUBIN,TOTAL 2025-01-17 16:14 [facility] 0.4 mg/dl As of September 2022 testing method has changed, this may include reference ranges. LYMPHOCYTES # (AUTO) 2025-01-17 16:14 [facility] 0.8 10 3/ul (missing) LACTIC ACID, VENOUS 2025-01-17 16:14 [facility] 0.8 mmol/l N As of September 2022 testing method has changed, this may include reference ranges. ALBUMIN/GLOBULIN RATIO 2025-01-17 16:14 [facility] 0.9 (missing) (missing) MONOCYTES # (AUTO) 2025-01-17 16:14 [facility] 1.4 10 3/ul (missing) CREATININE 2025-01-17 16:14 [facility] 1.5 mg/dl As of September 2022 testing method has changed, this may include reference ranges. HGB - HEMOGLOBIN 2025-01-17 16:14 [facility] 10.8 g/dl (missing) PLT - PLATELET COUNT 2025-01-17 16:14 [facility] 106 10 3/ul (missing) WHITE BLOOD COUNT 2025-01-17 16:14 [facility] 11.1 x10 3/ul (missing) ALT ALANINE AMINOTRANSFERASE 2025-01-17 16:14 [facility] 13 iu/l As of September 2022 testing method has changed, this may include reference ranges. SODIUM 2025-01-17 16:14 [facility] 134 mmol/l (missing) RED CELL DISTRIBUTION WIDTH 2025-01-17 16:14 [facility] 15.0 % (missing) MEAN CORPUSCULAR HEMOGLOBIN 2025-01-17 16:14 [facility] 29.0 pg (missing) MEAN CORPUSCULAR HGB CONC 2025-01-17 16:14 [facility] 29.7 g/dl (missing) ALBUMIN 2025-01-17 16:14 [email or web address] 3.5 g/dl As of September 2022 testing method has changed, this may include reference ranges. RED BLOOD COUNT 2025-01-17 16:14 [facility] 3.72 10 6/ul (missing) AST ASPARTATE AMINOTRANSFERASE 2025-01-17 16:14 [facility] 30 iu/l As of September 2022 testing method has changed, this may include reference ranges. CARBON DIOXIDE - CO2 2025-01-17 16:14 [facility] 33 mmol/l As of September 2022 testing method has changed, this may include reference ranges. BUN - BLOOD UREA NITROGEN 2025-01-17 16:14 [facility] 35 mg/dl As of September 2022 testing method has changed, this may include reference ranges. GFR - MDRD 2025-01-17 16:14 [facility] 36 (missing) The IDMS-traceable MDRD Study Equation [...] caring for patients older than 70. References: http://www.nkdep .nih.gov/lab-gianna luation/gfr/crea tinine-stand ardization, last updated May 2011. HCT - HEMATOCRIT 2025-01-17 16:14 [facility] 36.4 % (missing) GLOBULIN 2025-01-17 16:14 [facility] 4.0 g/dl (missing) POTASSIUM 2025-01-17 16:14 [facility] 5.2 mmol/l As of September 2022 testing method has changed, this may include reference ranges. ANION GAP 2025-01-17 16:14 [facility] 6.0 (missing) (missing) ALKALINE PHOSPHATASE 2025-01-17 16[facility]14 [facility] 64 [facility]/l As of September 2022 testing method has changed, this may include reference ranges. TOTAL PROTEIN 2025-01-17 16:14 [facility] 7.5 g/dl As of September 2022 testing method has changed, this may include reference ranges. NEUTROPHILS # (AUTO) 2025-01-17 16:14 [facility] 8.9 10 3/ul (missing) CALCIUM 2025-01-17 16:14 [facility] 9.0 mg/dl As of September 2022 testing method has changed, this may include reference ranges. MEAN PLATELET VOLUME 2025-01-17 16:14 [facility] 9.7 fl (missing) GLUCOSE 2025-01-17 16:14 [facility] 92 mg/dl As of September 2022 testing method has changed, this may include reference ranges. CHLORIDE 2025-01-17 16:14 [facility] 95 mmol/l As of September 2022 testing method has changed, this may include reference ranges. MEAN CORPUSCULAR VOLUME 2025-01-17 16:14 [facility] 97.8 fl (missing) CULTURE, BLOOD #1 2025-01-17 16:14 [facility] NG1DNO GROWTH AFTER 1 DAY (missing) (missing) CULTURE, BLOOD #2 2025-01-17 16:14 [facility] NG1DNO GROWTH AFTER 1 DAY (missing) (missing) CULTURE, BLOOD #1 2025-01-17 16:14 [facility] NG2DNO GROWTH AFTER 2 DAYS (missing) (missing) CULTURE, BLOOD #2 2025-01-17 16:14 [facility] NG2DNO GROWTH AFTER 2 DAYS (missing) (missing) CULTURE, BLOOD #1 2025-01-17 16:14 [facility] NG5DNO GROWTH AFTER 5 DAYS (missing) (missing) CULTURE, BLOOD #2 2025-01-17 16:14 [facility] NG5DNO GROWTH AFTER 5 DAYS (missing) (missing) Result panel 12 GLUCOSE, WHOLE BLOOD 2025-01-18 00:08 [facility] 115 (missing) (missing) Result panel 13 ABNORMAL LYMPHS % (MANUAL) 2025-01-18 05:29 [facility] 0 % (missing) BAND NEUTROPHILS % (MANUAL) 2025-01-18 05:29 [facility] 0 % (missing) BASOPHILS # (MANUAL) 2025-01-18 05:29 [facility] 0.0 10 3/ul (missing) EOSINOPHILS # (MANUAL) 2025-01-18 05:29 [facility] 0.1 10 3/ul (missing) LYMPHOCYTES # (MANUAL) 2025-01-18 05:29 [facility] 0.8 10 3/ul (missing) MONOCYTES # (MANUAL) 2025-01-18 05:29 [facility] 1.1 10 3/ul (missing) CREATININE 2025-01-18 05:29 [facility] 1.7 mg/dl As of September 2022 testing method has changed, this may include reference ranges. NEUTROPHILS # (MANUAL) 2025-01-18 05:29 [facility] 10.0 10 3/ul (missing) HGB - HEMOGLOBIN 2025-01-18 05:29 [facility] 10.2 g/dl (missing) TOTAL CELLS COUNTED 2025-01-18 05:29 [facility] 100 (missin g) (missing) CHLORIDE 2025-01-18 05:29 [facility] 100 mmol/l As of September 2022 testing method has changed, this may include reference ranges. MEAN CORPUSCULAR VOLUME 2025-01-18 05:29 [facility] 100.6 fl (missing) GLUCOSE 2025-01-18 05:29 [facility] 104 mg/dl As of September 2022 testing method has changed, this may include reference ranges. WHITE BLOOD COUNT 2025-01-18 05:29 [facility] 12.0 x10 3/ul (missing) SODIUM 2025-01-18 05:29 [facility] 136 mmol/l (missing) RED CELL DISTRIBUTION WIDTH 2025-01-18 05:29 [facility] 15.5 % (missing) MEAN CORPUSCULAR HGB CONC 2025-01-18 05:29 [facility] 29.1 g/dl (missing) MEAN CORPUSCULAR HEMOGLOBIN 2025-01-18 05:29 [facility] 29.3 pg (missing) ANION GAP 2025-01-18 05:29 [facility] 3.0 (missin g) (missing) RED BLOOD COUNT 2025-01-18 05:29 [facility] 3.48 10 6/ul (missing) GFR - MDRD 2025-01-18 05:29 [facility] 31 (missin g) The IDMS-traceable MDRD Study Equation has [...] caring for patients older than 70. References: http://www.nkdep .nih.gov/lab-gianna luation/gfr/crea tinine-stand ardization, last updated May 2011. CARBON DIOXIDE - CO2 2025-01-18 05:29 [facility] 33 mmol/l As of September 2022 testing method has changed, this may include reference ranges. BUN - BLOOD UREA NITROGEN 2025-01-18 05: [facility] 35 mg/dl As of September 2022 testing method has changed, this may include reference ranges. HCT - HEMATOCRIT 2025-01-18 05:29 [facility] 35.0 % (missing) POTASSIUM 2025-01-18 05: [facility] 4.3 mmol/l As of September 2022 testing method has changed, this may include reference ranges. CALCIUM 2025-01-18 05:29 [facility] 8.2 mg/dl As of September 2022 testing method has changed, this may include reference ranges. PLT - PLATELET COUNT 2025-01-18 05:29 [facility] 85 10 3/ul (missing) MEAN PLATELET VOLUME 2025-01-18 05:29 [facility] 9.9 fl (missing) PLATELET ESTIMATE, MANUAL 2025-01-18 05:29 [facility] DECREASED (<130,000) (missin g) (missing) DIFFERENTIAL COMMENT 2025-01-18 05:29 [facility] MANUAL DIFFERENTIAL (missin g) (missing) PLATELET MORPHOLOGY 2025-01-18 05:29 [facility] NORMAL APPEARANCE (missin g) (missing) RBC MORPHOLOGY (MULTIPLE) 2025-01-18 05:29 [facility] NORMAL APPEARANCE (missin g) (missing) WBC MORPHOLOGY (MULTIPLE) 2025-01-18 05:29 [facility] NORMAL APPEARANCE (missin g) (missing) Result panel 14 VBG HCO3 2025-01-18 16:35 [facility] 33.9 mmol/l (missing) VBG TOTAL CO2 2025-01-18 16:35 [facility] 36.0 mmol /l (missing) VBG PCO2 2025-01-18 16:35 [facility] 67.9 mmhg (missing) VBG BASE EXCESS 2025-01-18 16:35 [facility] 7.3 mm ol/l (missing) VBG PH 2025-01-18 16:35 [facility] 7.302 (missing ) (missing) VBG PO2 2025-01-18 16:35 [facility] 79.7 mmhg (missing) [facility] OXYGEN SATURATION 2025-01-18 16:35 [facility] 97.0 % (missing) Result panel 15 MRSA PCR,CCU ADMIT 2025-01-18 18:22 [facility] NEGATIVE (missing) (missing) Result panel 16 VBG HCO3 2025-01-18 20:04 [facility] 33.5 mmol/l (missing) VBG TOTAL CO2 2025-01-18 20:04 [facility] 35.6 mmol /l (missing) VBG PO2 2025-01-18 20:04 [facility] 47.5 mmhg (missing) VBG BASE EXCESS 2025-01-18 20:04 [facility] 6.7 mm ol/l (missing) VBG PCO2 2025-01-18 20:04 [facility] 69.0 mmhg (missing) VBG PH 2025-01-18 20:04 [facility] 7.290 (missing ) (missing) VBG OXYGEN SATURATION 2025-01-18 20:04 [facility] 77.0 % (missing) Result panel 17 VBG HCO3 2025-01-18 21:41 [facility] 33.8 mmol/l (missing) VBG TOTAL CO2 2025-01-18 21:41 [facility] 35.9 mmol /l (missing) VBG PO2 2025-01-18 21:41 [facility] 46.9 mmhg (missing) VBG PCO2 2025-01-18 21:41 [facility] 67.1 mmhg (missing) VBG BASE EXCESS 2025-01-18 21:41 [facility] 7.3 mm ol/l (missing) VBG PH 2025-01-18 21:41 [facility] 7.306 (missing ) (missing) VBG OXYGEN SATURATION 2025-01-18 21:41 [facility] 77.0 % (missing) Result panel 18 VBG HCO3 2025-01-19 01:04 [facility] 34.6 mmol/l (missing) VBG PO2 2025-01-19 01:04 [facility] 35.0 mmhg (missing) VBG TOTAL CO2 2025-01-19 01:04 [facility] 36.6 mmol /l (missing) VBG OXYGEN SATURATION 2025-01-19 01:04 [facility] 63.0 % (missing) VBG PCO2 2025-01-19 01:04 [facility] 67.9 mmhg (missing) VBG PH 2025-01-19 01:04 [facility] 7.311 (missing ) (missing) VBG BASE EXCESS 2025-01-19 01:04 [facility] 8.1 mm ol/l (missing) Result panel 19 NUCLEATED RED BLOOD CELLS AUTO 2025-01-19 04:15 [facility] 0.0 /100wbc (missing) BASOPHILS # (AUTO) 2025-01-19 04:15 [facility] 0.0 10 3/ul (missing) NRBC ABSOLUTE COUNT (AUTO) 2025-01-19 04:15 [facility] 0.00 x10 3/ul (missing) EOSINOPHILS # (AUTO) 2025-01-19 04:15 [facility] 0.1 10 3/ul (missing) LYMPHOCYTES # (AUTO) 2025-01-19 04:15 [facility] 0.8 10 3/ul (missing) MONOCYTES # (AUTO) 2025-01-19 04:15 [facility] 1.1 10 3/ul (missing) CREATININE 2025-01-19 04:15 [email or web address] 1.2 mg/dl As of September 2022 testing method has changed, this may include reference ranges. MEAN PLATELET VOLUME 2025-01-19 04:15 [facility] 10.6 fl (missing) CHLORIDE 2025-01-19 04:15 [email or web address] 100 mmol/l As of September 2022 testing method has changed, this may include reference ranges. VBG PO2 2025-01-19 04:15 [facility] 101.1 mmhg (missing) GLUCOSE 2025-01-19 04:15 [facility] 121 mg/dl As of September 2022 testing method has changed, this may include reference ranges. SODIUM 2025-01-19 04:15 [facility] 136 mmol/l (missing) RED CELL DISTRIBUTION WIDTH 2025-01-19 04:15 [facility] 15.1 % (mi ssing) MAGNESIUM 2025-01-19 04:15 [facility] 2.1 mg/dl As of September 2022 testing method has changed, this may include reference ranges. BUN - BLOOD UREA NITROGEN 2025-01-19 04:15 [facility] 29 mg/dl As of Sep testing method has changed, this may include reference ranges. MEAN CORPUSCULAR HEMOGLOBIN 2025-01-19 04:15 [facility] 29.8 pg (missing) RED BLOOD COUNT 2025-01-19 04:15 [email or web address] 3.25 10 6/ul (missing) MEAN CORPUSCULAR HGB CONC 2025-01-19 04:15 [facility] 30.1 g/dl (missing) CARBON DIOXIDE - CO2 2025-01-19 04:15 [facility] 32 mmol/l As of September 2022 testing method has changed, this may include reference ranges. HCT - HEMATOCRIT 2025-01-19 04:15 [facility] 32.2 % (missing) VBG HCO3 2025-01-19 04:15 [facility] 33.3 mmol/l (missing) VBG TOTAL CO2 2025-01-19 04:15 [facility] 34.9 mmol /l (missing) ANION GAP 2025-01-19 04:15 [facility] 4.0 (missing ) (missing) POTASSIUM 2025-01-19 04:15 [facility] 4.1 mmol/l As of September 2022 testing method has changed, this may include reference ranges. NEUTROPHILS # (AUTO) 2025-01-19 04:15 [facility] 4.4 10 3/ul (missing) GFR - MDRD 2025-01-19 04:15 [facility] 46 (zenon salcedo) The IDMS-traceable MDRD Study Equation [...] ion/gfr/creatinine -stand ardization, last updated May 2011. VBG PCO2 2025-01-19 04:15 [facility] 51.2 mmhg (missing) WHITE BLOOD COUNT 2025-01-19 04:15 [facility] 6.4 x10 3/ul (missing) VBG PH 2025-01-19 04:15 [facility] 7.417 (missing ) (missing) CALCIUM 2025-01-19 04:15 [facility] 8.5 mg/dl As of September 2022 testing method has changed, this may include reference ranges. VBG BASE EXCESS 2025-01-19 04:15 [facility] 8.6 mm ol/l (missing) PLT - PLATELET COUNT 2025-01-19 04:15 [facility] 82 10 3/ul (missing) HGB - HEMOGLOBIN 2025-01-19 04:15 [facility] 9.7 g /dl (missing) VBG OXYGEN SATURATION 2025-01-19 04:15 [facility] 99.0 % (missing) MEAN CORPUSCULAR VOLUME 2025-01-19 04:15 [facility] 99.1 fl (missing) Result panel 20 AMMONIA 2025-01-19 17:39 [facility] 54.7 umol/l As of September 2022 testing method has changed, this may include reference ranges. Result panel 21 NUCLEATED RED BLOOD CELLS AUTO 2025-01-20 04:34 [facility] 0.0 /100wbc (missing) BASOPHILS # (AUTO) 2025-01-20 04:34 [facility] 0.0 10 3/ul (missing) NRBC ABSOLUTE COUNT (AUTO) 2025-01-20 04:34 [facility] 0.00 x10 3/ul (missing) EOSINOPHILS # (AUTO) 2025-01-20 04:34 [facility] 0.2 10 3/ul (missing) MONOCYTES # (AUTO) 2025-01-20 04:34 [facility] 1.2 10 3/ul (missing) CREATININE 2025-01-20 04:34 [facility] 1.2 mg/dl As of September 2022 testing method has changed, this may include reference ranges. LYMPHOCYTES # (AUTO) 2025-01-20 04:34 [facility] 1.3 10 3/ul (missing) MEAN PLATELET VOLUME 2025-01-20 04:34 [facility] 10.1 fl (missing) CHLORIDE 2025-01-20 04:34 [facility] 100 mmol/l As of September 2022 testing method has changed, this may include reference ranges. VBG OXYGEN SATURATION 2025-01-20 04:34 [facility] 100.0 % (missing) MEAN CORPUSCULAR VOLUME 2025-01-20 04:34 [facility] 100.3 fl (missing) GLUCOSE 2025-01-20 04:34 [facility] 105 mg/dl As of September 2022 testing method has changed, this may include reference ranges. PLT - PLATELET COUNT 2025-01-20 04:34 [facility] 118 10 3/ul (missing) SODIUM 2025-01-20 04:34 [facility] 136 mmol/l (missing) RED CELL DISTRIBUTION WIDTH 2025-01-20 04:34 [facility] 15.3 % (mi ssing) MAGNESIUM 2025-01-20 04:34 [facility] 2.3 mg/dl As of September 2022 testing method has changed, this may include reference ranges. BUN - BLOOD UREA NITROGEN 2025-01-20 04:34 [facility] 28 mg/dl As of Sep testing method has changed, this may include reference ranges. RED BLOOD COUNT 2025-01-20 04:34 [facility] 3.24 10 6/ul (missing) MEAN CORPUSCULAR HGB CONC 2025-01-20 04:34 [facility] 30.2 g/dl (missing) MEAN CORPUSCULAR HEMOGLOBIN 2025-01-20 04:34 [facility] 30.2 pg (missing) CARBON DIOXIDE - CO2 2025-01-20 04:34 [facility] 32 mmol/l As of September 2022 testing method has changed, this may include reference ranges. HCT - HEMATOCRIT 2025-01-20 04:34 [facility] 32.5 % (missing) VBG HCO3 2025-01-20 04:34 [facility] 34.1 mmol/l (missing) VBG TOTAL CO2 2025-01-20 04:34 [facility] 35.8 mmol /l (missing) ANION GAP 2025-01-20 04:34 [facility] 4.0 (missing ) (missing) NEUTROPHILS # (AUTO) 2025-01-20 04:34 [facility] 4.1 10 3/ul (missing) POTASSIUM 2025-01-20 04:34 [facility] 4.3 mmol/l As of September 2022 testing method has changed, this may include reference ranges. GFR - MDRD 2025-01-20 04:34 [facility] 46 (missin g) The IDMS-traceable MDRD Study Equation has [...] ion/gfr/creatinine -stand ardization, last updated May 2011. VBG PCO2 2025-01-20 04:34 [facility] 57.2 mmhg (missing) WHITE BLOOD COUNT 2025-01-20 04:34 [facility] 6.8 x10 3/ul (missing) VBG PH 2025-01-20 04:34 [facility] 7.379 (missing ) (missing) VALPROIC ACID (DEPAKOTE) 2025-01-20 04:34 [facility] 8.4 ug/ml Valproic Acid Therapeutic Range Therapeutic 08081 ug/mL Toxicity may occur at levels of 612301 ug/mL As of September 2022 testing method has changed, this may include reference ranges. CALCIUM 2025-01-20 04:34 [facility] 8.6 mg/dl As of September 2022 testing method has changed, this may include reference ranges. VBG BASE EXCESS 2025-01-20 04:34 [facility] 8.7 mm ol/l (missing) HGB - HEMOGLOBIN 2025-01-20 04:34 [facility] 9.8 g /dl (missing) VBG PO2 2025-01-20 04:34 [facility] 98.5 mmhg (missing) LAST DOSE DATE 2025-01-20 04:34 [facility] UNK (mi ssing) (missing) LAST DOSE TIME 2025-01-20 04:34 [facility] UNK (mi ssing) (missing) Result panel 22 NUCLEATED RED BLOOD CELLS AUTO 2025-02-16 14:01 [facility] 0.0 /100wbc (missing) BASOPHILS # (AUTO) 2025-02-16 14:01 [facility] 0.0 10 3/ul (missing) NRBC ABSOLUTE COUNT (AUTO) 2025-02-16 14:01 [facility] 0.00 x10 3/ul (missing) EOSINOPHILS # (AUTO) 2025-02-16 14:01 [facility] 0.2 10 3/ul (missing) BILIRUBIN,TOTAL 2025-02-16 14: [facility] 0.3 mg/dl As of September 2022 testing method has changed, this may include reference ranges. MONOCYTES # (AUTO) 2025-02-16 14:01 [facility] 0.9 10 3/ul (missing) ALBUMIN/GLOBULIN RATIO 2025-02-16 14: [facility] 1.0 (missing) (missing) CREATININE 2025-02-16 14: [facility] 1.1 mg/dl As of September 2022 testing method has changed, this may include reference ranges. HGB - HEMOGLOBIN 2025-02-16 14: [facility] 11.6 g/dl (missing) GLUCOSE 2025-02-16 14: [facility] 111 mg/dl As of September 2022 testing method has changed, this may include reference ranges. AST ASPARTATE AMINOTRANSFERASE 2025-02-16 14: [facility] 14 iu/l As of September 2022 testing method has changed, this may include reference ranges. RED CELL DISTRIBUTION WIDTH 2025-02-16 14:01 [facility] 14.7 % (missing) SODIUM 2025-02-16 14:01 [facility] 140 mmol/l Unknown PLT - PLATELET COUNT 2025-02-16 14:01 [facility] 143 10 3/ul (missing) LYMPHOCYTES # (AUTO) 2025-02-16 14: [facility] 2.5 10 3/ul (missing) BUN - BLOOD UREA NITROGEN 2025-02-16 14: [facility] 27 mg/dl As of September 2022 testing method has changed, this may include reference ranges. MEAN CORPUSCULAR HEMOGLOBIN 2025-02-16 14:01 [facility] 29.1 pg (missing) ALBUMIN 2025-02-16 14: [facility] 3.8 g/dl As of September 2022 testing method has changed, this may include reference ranges. GLOBULIN 2025-02-16 14:01 [facility] 3.9 g/dl (missing) RED BLOOD COUNT 2025-02-16 14:01 [facility] 3.99 10 6/ul (missing) MEAN CORPUSCULAR HGB CONC 2025-02-16 14:01 [facility] 30.1 g/dl (missing) CARBON DIOXIDE - CO2 2025-02-16 14:01 [facility] 38 mmol/l As of September 2022 testing method has changed, this may include reference ranges. HCT - HEMATOCRIT 2025-02-16 14:01 [facility] 38.6 % (missing) ANION GAP 2025-02-16 14:01 [facility] 4.0 (missing) (missing) POTASSIUM 2025-02-16 14:01 [facility] 4.6 mmol/l As of September 2022 testing method has changed, this may include reference ranges. GFR - MDRD 2025-02-16 14:01 [facility] 51 (missing) The IDMS-traceable MDRD Study Equation has [...] ation/gfr/creatin ine-stand ardization, last updated May 2011. NEUTROPHILS # (AUTO) 2025-02-16 14:01 [facility] 6.0 10 3/ul (missing) ALKALINE PHOSPHATASE 2025-02-16 14:01 [facility] 67 iu/l As of September 2022 testing method has changed, this may include reference ranges. TOTAL PROTEIN 2025-02-16 14:01 [facility] 7.7 g/dl As of September 2022 testing method has changed, this may include reference ranges. ALT ALANINE AMINOTRANSFERASE 2025-02-16 14:01 [facility] 9 iu/l As of September 2022 testing method has changed, this may include reference ranges. CALCIUM 2025-02-16 14:01 [facility] 9.3 mg/dl As of September 2022 testing method has changed, this may include reference ranges. MEAN PLATELET VOLUME 2025-02-16 14:01 [facility] 9.4 fl (missing) WHITE BLOOD COUNT 2025-02-16 14:01 [facility] 9.7 x10 3/ul (missing) MEAN CORPUSCULAR VOLUME 2025-02-16 14:01 [facility] 96.7 fl (missing) CHLORIDE 2025-02-16 14:01 [facility] 98 mmol/l As of September 2022 testing method has changed, this may include reference ranges. Social History date description facility
[2025-03-01] MEDS: IPRATROPIUM/ALBUTEROL 3 ML NEB INH STA (12:32)
[2025-03-01 12:34] LABS: HCT - HEMATOCRIT 36.6 % (37.0-47.0); HGB - HEMOGLOBIN 10.8 g/dL (12.0-16.0); MEAN PLATELET VOLUME 9.3 fL (7.9-10.8); NRBC ABSOLUTE COUNT (AUTO) 0.00 x10^3/uL; NUCLEATED RED BLOOD CELLS AUTO 0.0 /100WBC; PLT - PLATELET COUNT 149 10^3/uL (130-450); RED CELL DISTRIBUTION WIDTH 14.6 % (12.0-15.0)
--- NOTE | 2025-03-01 12:43 | XRAY Report ---
PROCEDURE: XR Chest 1V INDICATIONS: cough, SOA TECHNIQUE: One view of the chest was acquired. COMPARISON: 06/07/2024 FINDINGS: Surgical changes and devices: None. Lungs and pleura: Peribronchial cuffing. No effusions or pneumothorax. No consolidation. Mediastinum: Mediastinal contours appear normal. Heart size is normal. Bones and chest wall: No suspicious bony lesions. Overlying soft tissues appear unremarkable. IMPRESSION: Peribronchial cuffing, suggestive of infectious or inflammatory bronchitis. No focal infiltrate, pleural effusion or pneumothorax. Reviewed by: Mike Bradford MD on 03/01/2025 12:40 PM PST Approved by: Mike Bradford MD on 03/01/2025 12:40 PM PST Station ID: [id number]
[2025-03-01 13:08] LABS: ALT ALANINE AMINOTRANSFERASE 7.0 IU/L (10-60); AST ASPARTATE AMINOTRANSFERASE 11.0 IU/L (10-42); BUN - BLOOD UREA NITROGEN 20.0 mg/dL (6-20); CARBON DIOXIDE - CO2 39.0 mmol/L (21-32); CREATININE 1.2 mg/dL (0.6-1.3); GFR - MDRD 46.0 (>89)
[2025-03-01 13:42] LABS: B. PARAPERTUSSIS- RESP PCR PAN NOT DETECTED; B. PERTUSSIS- RESP PCR PANEL NOT DETECTED; C. PNEUMONIAE- RESP PCR PANEL NOT DETECTED; CORONAVIRUS 229E-RESP PCR NOT DETECTED; CORONAVIRUS HKU1-RESP PCR NOT DETECTED; CORONAVIRUS NL63-RESP PCR NOT DETECTED; CORONAVIRUS OC43-RESP PCR NOT DETECTED; HUMAN METAPNEUMOVIRUS NOT DETECTED; INFLUENZA A- RESP PCR PANEL NOT DETECTED; INFLUENZA B - RESP PCR PANEL NOT DETECTED; M. PNEUMONIAE- RESP PCR PANEL NOT DETECTED; PARAINFLUENZA VIRUS 1 NOT DETECTED; PARAINFLUENZA VIRUS 2 NOT DETECTED; PARAINFLUENZA VIRUS 4 NOT DETECTED; RHINOVIRUS/ENTEROVIRUS DETECTED; RSV- RESP PCR PANEL NOT DETECTED; SARS-CoV-2 -RESP PCR PANEL NOT DETECTED
--- NOTE | 2025-03-01 14:15 | ED Physician Documentation ---
History of Present Illness Stated complaint Stated Complaint: SOA Chief complaint Chief Complaint: Resp Additonal information Additional information: 54-year-old female with advanced COPD on 2 L supplemental oxygen at home also history of PTSD, osteomyelitis, multiple fractures, type II bipolar disorder presents to emergency department from assisted living facility for increased shortness of breath. Patient says that she just thinks she has some sort of cold and says that at home she was having increased work of breathing shortness of breath to the point where her fingers were turning blue. She says she is normally on 2 L supplemental oxygen but at assisted living facility she has been going up to 4 L oxygen. I spoke with admin at patient's assisted living facility who says that she has reached out to her primary care provider to try to transition patient onto palliative care services as patient has been noncompliant with cares at assisted living facility and often times refusing to wear supplemental oxygen and refusing to have her chronic wounds addressed in her bilateral lower extremities. Patient says that she is having increased work of breathing she denies any chest pain nausea vomiting fevers or chills. [place] Coma Scale Assess Eye opening: Spontaneous Verbal response: Oriented Motor response: Obeys Commands Total score: 15 Meds/Allgy Home Medications Ambulatory Orders Medication Instructions Recorded Confirmed ibuprofen 600 mg tablet (IBU) 600 mg PO Q6H PRN pain 0 04/12/24 03/01/25 albuterol sulfate 90 mcg/actuation 1 - 2 puff inhalati on Q4HR PRN 05/06/24 03/01/25 aerosol inhaler (Ventolin HFA) Shortness Of Air/Wheezi ng #1 ea acetaminophen 500 mg tablet 500 mg PO QID PRN fever or pain 12/04/24 03/01/25 (Tylenol Extra Strength) tizanidine 4 mg capsule 4 mg PO Q8H PRN muscle spast icity 12/09/24 03/01/25 #60 caps diclofenac sodium 75 mg 75 mg PO BID PRN pain 03/01/25 tablet,delayed release pregabalin 150 mg capsule 150 mg PO BID #60 caps 12/2603/01/25 levothyroxine 25 mcg tablet 25 mcg PO DAILY 01/18/25 1 05/02/24 (Euthyrox) cholecalciferol (vitamin D3) 25 50 mcg (2 x 25 mcg (1, 000 unit)) 10/23/25 12/02/25 mcg (1,000 unit) tablet PO DAILY #60 tabs divalproex 500 mg tablet,extended 500 mg PO HS #30 tab s 02/14/25 03/01/25 release 24 hr trazodone 100 mg tablet 100 mg PO HS #30 tabs 03/01/25 vit,calcium 27-ferrous 1 tab PO DAILYWM #90 t abs 02/23/25 03/01/25 fum 60 mg iron-folic acid 1 mg tablet (Trinatal Rx 1) budesonide-formoterol HFA 80 2 inh inhalation BID 05/2503/01/25 mcg-4.5 mcg/actuation aerosol inhaler (Breyna) citalopram 10 mg tablet 10 mg PO DAILY 03/01/2505/25 quetiapine 100 mg tablet 100 mg PO HS 03/01/25 Allergies Allergies Allergy/AdvReac Type Severity Reaction Status Date / Time No Known Drug Allergies Allergy Verified 02/07/25 11:21 PFSH Active Problems All Active Problems (Updated 03/01/25 @ 19:59 by Nighat Adkins DNP) Acute hypoxemic respiratory failure (Acute) Acute bronchitis due to Rhinovirus (Acute) Self-care deficit (Acute) Left leg swelling (Acute) Healthcare maintenance (Acute) Medication management (Acute) Insomnia due to mental disorder (Acute) Complex posttraumatic stress disorder (Acute) Screening for colon cancer (Acute) Severe obesity (BMI 35.0-39.9) with comorbidity (Acute) Tardive dyskinesia (Acute) Urinary retention (Acute) Thrombocytopenia (Acute) Urinary tract infection (Acute) Urinary incontinence (Acute) Hyperlipidemia (Chronic) Marijuana dependence (Chronic) Tobacco dependence (Chronic) TSH elevation (Chronic) Fatty (change of) liver, not elsewhere classified (Chronic) Osteoporosis (Chronic) Stage 3a chronic kidney disease (CKD) (Chronic) Anemia (Acute) COPD (chronic obstructive pulmonary disease) (Chronic) Chronic respiratory failure (Chronic) Migraine with aura (Chronic 10/22/06) Psoriasis (Chronic 11/20/06) Right knee buckling (Chronic) Left shoulder strain (Chronic) Asthma, moderate persistent (Chronic 10/22/06) Essential (primary) hypertension (Chronic 04/14/08) Bipolar 2 disorder (Chronic) Wheelchair dependent (Chronic) Generalized anxiety disorder (Chronic) Chronic pain (Chronic) Hyperkalemia (Chronic) Medical History Medical History (Updated 03/01/25 @ 19:59 by Nighat Adkins DNP) Insomnia Closed fracture of left distal fibula Ankle fracture, left Nondisplaced fracture of the lateral malleolus 12/03/2024 PTSD (post-traumatic stress disorder) Reactive depression (situational) Shoulder pain, right Sept 2024 - recent fall History of compression fracture of spine T12 (see CT 01/19/2022) History of osteomyelitis History of humerus fracture left arm 09/17/2024 History of fibula fracture History of femur fracture Metatarsal fracture Acute-subacute, oblique oriented 5th metatarsal shaft fracture. 06/02/2024 Infected prosthetic hip left hip Surgical History Surgical History Hx of inguinal hernia repair right Hx of cholecystectomy Hx of appendectomy Hx of lithotripsy 2007 History of left hip replacement revision due to osteomyelitis, OMEGA, 2016 Hx of bilateral hip replacements Family History Family History Mother Diabetes Heart failure Father Diabetes Heart failure Social History Social History Smoking Status: Current every day smoker Number of Years Smoked: 30 How many cigarettes a day do you smoke? (20 cigarettes=1 Pk): 6 Second hand tobacco smoke exposure: Yes Do you dip or chew tobacco?: No Do you vape?: No Patient requests smoking cessation consult: No Initiate information on smoking cessation: No Living arrangement: [facility] Marital Status: Living Condition: With caregiver(s) Support Person: Yes Living Situation Details: Patient resides at [facility] Physical Activity: Chairfast Level: Independent Home Mobility Equipment: Wheelchair Physical - Functional Details: Pivots for transfers. Do you feel safe in your home environment?: Yes History of physical, verbal, emotional, or financial abuse?: No ETOH Use: None Substance Use: cannabis (any form) Substance Use Details: last marijuana- Feb 24, 2025 Retired: Yes Service: No Exam Exam Vital Signs: Vital Signs x48h Pulse Resp BP Pulse Ox O2 Flow Rate 03/01/25 13:49 91 16 163/94 H 94 03/01/25 12:38 87 18 03/01/25 12:34 88 20 114/65 94 2 03/01/25 12:00 2 Constitutional normal general appearance, no apparent distress, abnormal body habitus (obese), no limitations and alert HENMT normocephalic Eyes PERRL Neck/C-Spine visual inspection normal Chest inspection of chest normal Respiratory Diminished breath sounds with rhonchi throughout bilateral lobes Cardiovascular normal heart rate noted Gastrointestinal abdomen normal to inspection and abdomen soft to palpation Genitourinary no CVA tenderness Extremities normal to inspection Psychiatry mental status grossly normal and oriented x3 Skin skin color normal Results Vitals Vitals: Vital Signs - 24 hr 03/01/25 11:51 03/01/25 12:00 03/01/25 12:31 Temperature 37.2 C Temperature Source Oral Pulse Rate 94 Respiratory Rate 24 Blood Pressure 108/72 O2 Saturation 94 Oxygen Delivery Method Nasal Cannula Nasal Cannula O2 Source Room air Oxygen Flow Rate 2 If not protocol: Oxygen Flow, liters/minute 2 Pain Intensity 2 03/01/25 12:34 03/01/25 12:38 03/01/25 13:49 Temperature Temperature Source Pulse Rate 88 87 91 Respiratory Rate 20 18 16 Blood Pressure 114/65 163/94 H O2 Saturation 94 94 Oxygen Delivery Method O2 Source Nasal cannula Room air Oxygen Flow Rate If not protocol: Oxygen Flow, liters/minute 2 Pain Intensity Oxygen O2 Source [With Activity] Room air O2 Source [Without Activity] Room air O2 Source Room air Oxygen Flow Rate 2 Labs Labs: Laboratory Tests 03/01/25 03/01/25 03/01/25 12:25 12:27 14:50 WBC 11.1 H RBC 3.69 L Hgb 10.8 L Hct 36.6 L MCV 99.2 H MCH 29.3 MCHC 29.5 L RDW 14.6 Plt Count 149 MPV 9.3 Neut # (Auto) 8.3 H Lymph # (Auto) 1.6 Terrell # (Auto) 1.1 H Eos # (Auto) 0.1 Baso # (Auto) 0.0 Absolute Nucleated RBC 0.00 Nucleated RBC % 0.0 D-Dimer 575.8 H VBG pH 7.318 VBG pCO2 71.9 H VBG pO2 43.9 VBG HCO3 37.2 H VBG Total CO2 39.4 H VBG O2 Saturation 68.0 VBG Base Excess 10.9 H Sodium 140 Potassium 4.7 H Chloride 99 L Carbon Dioxide 39 H* Anion Gap 2.0 L BUN 20 Creatinine 1.2 Estimated GFR (MDRD) 46 L Glucose 96 Calcium 9.2 Total Bilirubin 0.3 AST 11 ALT 7 L Alkaline Phosphatase 55 Total Protein 7.4 Albumin 3.6 Globulin 3.8 Albumin/Globulin Ratio 0.9 L Nasal Adenovirus (PCR) NOT DETECTED Nasal B. parapertussis DNA (PCR) NOT DETECTED Nasal Coronavir 229E PCR NOT DETECTED Nasal Coronavir HKU1 PCR NOT DETECTED Nasal Coronavir NL63 PCR NOT DETECTED Nasal Coronavir OC43 PCR NOT DETECTED Nasal Enterovir/Rhinovir PCR DETECTED A Nasal Influenza B PCR NOT DETECTED Nasal Influenza A PCR NOT DETECTED Nasal Parainfluen 1 PCR NOT DETECTED Nasal Parainfluen 2 PCR NOT DETECTED Nasal Parainfluen 3 PCR NOT DETECTED Nasal Parainfluen 4 PCR NOT DETECTED Nasal RSV (PCR) NOT DETECTED Nasal B.pertussis DNA PCR NOT DETECTED Nasal C.pneumoniae (PCR) NOT DETECTED Virgilio Human Metapneumo PCR NOT DETECTED Nasal M.pneumoniae (PCR) NOT DETECTED Nasal SARS-CoV-2 (PCR) NOT DETECTED Rads (name of study) Chest x-ray: Relevant Findings:: Final report received and EMP independent i nterpretation of test Interpretation: IMPRESSION: Peribronchial cuffing, suggestive of infectious or inflammatory bronchitis. No focal infiltrate, pleural effusion or pneumothorax CT angio chest: Relevant Findings:: Final report received and EMP independent interpretation of test Interpretation: IMPRESSION: No pulmonary embolus. No acute cardiopulmonary pathology. Interval development of compression fractures of T5 and T12, both old. Comment: Consider DEXA bone densitometry and possible institution of bone build and medications. PD Medical Decision Making ED course ED course: 54-year-old female with severe COPD on 2 L home O2, chronic respiratory failure, extensive psychiatric history, chronic pain, multiple prior fractures, CKD stage 3a, anemia, and significant nonadherence to medical care presented from assisted living with increased shortness of breath. Differential diagnosis included COPD exacerbation, pneumonia, viral illness, heart failure, pulmonary embolism, pneumothorax, anemia, and metabolic disturbance. She reported increased work of breathing and transient digital cyanosis with increased oxygen needs at her facility (up to 4 L). Exam notable for respiratory distress with increased oxygen needs up to 4L. Collateral from her assisted- living facility confirms ongoing nonadherence with oxygen therapy and refusal of wound care for chronic bilateral LE wounds. They have been transitioning her toward palliative care due to progressive decline and inability to meet her care needs. Labs showed mild leukocytosis (11.1), chronic anemia at baseline (Hgb 10.8), chronic CO2 retention, CKD baseline creatinine (1.2), and negative troponin. Respiratory viral panel positive for rhinovirus/enterovirus, likely the trigger for her symptoms. D-dimer mildly elevated but clinical suspicion for PE was low. CTA chest was obtained and was negative for pulmonary embolism. There were no acute parenchymal findings. Chest X-ray demonstrated peribronchial cuffing suggestive of infectious or inflammatory bronchitis, with no focal infiltrate, pleural effusion, or pneumothorax. With viral positivity, imaging consistent with bronchitis, and no evidence of PE, pneumonia, or pneumothorax, the presentation is most consistent with acute COPD exacerbation secondary to viral URI on a background of chronic respiratory failure and poor outpatient treatment adherence. Given her significant comorbidities, frailty, functional limitations, and need for respiratory therapy and close monitoring, she requires ED observation for bronchodilator therapy, steroids, reassessment of oxygen needs, and coordination with her facility/palliative care. She is stable for observation and does not currently require full inpatient admission. Discharge Plan Discharge Patient Disposition: ED Place in Observation Clinical Impression: Acute bronchitis due to Rhinovirus, Acute hypoxemic respiratory failure COPD (chronic obstructive pulmonary disease) Qualifiers: COPD type: unspecified COPD Qualified Code(s): J44.9 - Chronic obstructive pulmonary disease, unspecified Interventions: ED Admission Assessment Last Done: 03/01/25 15:15 Vitals documented within 30 minutes of discharge?: Yes
--- NOTE | 2025-03-01 14:22 | CT Report ---
PROCEDURE: CT Angio Chest INDICATIONS: elevated d-dimer CONTRAST: OMNI 300 80ml TECHNIQUE: After the administration of intravenous contrast images of the chest were acquired. 3-dimensional coronal oblique maximum intensity projection (MIP) reformats, axial MIP, and coronal and sagittal MPR reformats were then performed through the chest. For radiation dose reduction, the following was used: automated exposure control, adjustment of mA and/or kV according to patient size. COMPARISON: CT chest without contrast dated 10/14/2020 FINDINGS: Image quality: Excellent. Large vessels: No filling defects within the opacified pulmonary arteries, accounting for motion and contrast timing. No evidence of acute aortic syndrome or aortic aneurysm. Lungs and pleura: No consolidation. No pleural effusions. No pneumothorax. No suspicious pulmonary nodules which require follow up. Mediastinum: Heart size is normal. No pericardial effusion. Severe coronary artery calcifications. No large vessel abnormality. No mediastinal adenopathy by size criteria. Chest wall and lower neck: Thyroid is unremarkable. No axillary or supraclavicular adenopathy by size. Bones: No aggressive osseous abnormality. Interval development of chronic compressions of T5 and T12. No acute compression fractures. Multiple old healed left rib fractures. Upper Abdomen: Small, shrunken left kidney. Remote cholecystectomy. IMPRESSION: No pulmonary embolus. No acute cardiopulmonary pathology. Interval development of compression fractures of T5 and T12, both old. Comment: Consider DEXA bone densitometry and possible institution of bone build and medications. Reviewed by: Cole Mcallister MD on 03/01/2025 2:18 PM PST Approved by: Cole Mcallister MD on 03/01/2025 2:18 PM PST Station ID: [id number]
--- NOTE | 2025-03-01 14:41 | HISTORY & PHYSICAL EXAMINATION ---
Chief Complaint Chief Complaint Chief Complaint: Dyspnea History of Present Illness Admitted From Admitted From:: ED History Obtained From [facility]ed[facility] History obtained from: Patient, EMR History of Present Illness HPI Comment/Other: Patient is a 54-year-old female with a history of COPD, on 2 L of O2 chronically, T2DM, PTSD, bipolar disorder Who presents from [facility] with acute on chronic hypoxemic respiratory failure. She is found to be in COPD exacerbation. With rhinovirus on viral respiratory panel. Patient says she was doing well at her facility until the last couple of days. During that time, she has had increased work of breathing. She is normally on 2 L for sleep and exertion, but has been on 2 to 4 L continuously over the last day. She has had more cough. She feels pain all over. She fell and scraped her head but not any loss of consciousness. She is found in the ED to have increased work of breathing. Requiring 3 to 4 L to maintain her saturations. She has a mild leukocytosis at 11. Her renal function is normal. Her VBG shows a pCO2 of 61. Potassium of 4.7. Chest x-ray without any focal consolidation. The patient has a DNR/DNI POLST. She agrees that this is her CODE STATUS. She still has not yet identified a person who would be her POA. She does now have a boyfriend, but is unsure if she would want to do list to him. Meds/Allgy Home Medications Ambulatory Orders Medication Instructions Recorded Confirmed ibuprofen 600 mg tablet (IBU) 600 mg PO Q6H PRN pain 0 04/12/24 03/01/25 albuterol sulfate 90 mcg/actuation 1 - 2 puff inhalati on Q4HR PRN 05/06/24 03/01/25 aerosol inhaler (Ventolin HFA) Shortness Of Air/Wheezi ng #1 ea acetaminophen 500 mg tablet 500 mg PO QID PRN fever or pain 12/04/24 03/01/25 (Tylenol Extra Strength) tizanidine 4 mg capsule 4 mg PO Q8H PRN muscle spast icity 12/09/24 03/01/25 #60 caps diclofenac sodium 75 mg 75 mg PO BID PRN pain 03/01/25 tablet,delayed release pregabalin 150 mg capsule 150 mg PO BID #60 caps 12/2603/01/25 levothyroxine 25 mcg tablet 25 mcg PO DAILY 01/18/25 1 05/02/24 (Euthyrox) cholecalciferol (vitamin D3) 25 50 mcg (2 x 25 mcg (1, 000 unit)) 01/20/25 03/01/25 mcg (1,000 unit) tablet PO DAILY #60 tabs divalproex 500 mg tablet,extended 500 mg PO HS #30 tab s 02/14/25 03/01/25 release 24 hr trazodone 100 mg tablet 100 mg PO HS #30 tabs 03/01/25 vit,calcium 27-ferrous 1 tab PO DAILYWM #90 t abs 02/23/25 03/01/25 fum 60 mg iron-folic acid 1 mg tablet (Trinatal Rx 1) budesonide-formoterol HFA 80 2 inh inhalation BID 05/2503/01/25 mcg-4.5 mcg/actuation aerosol inhaler (Breyna) citalopram 10 mg tablet 10 mg PO DAILY 03/01/2505/25 quetiapine 100 mg tablet 100 mg PO HS 03/01/25 Allergies Allergies Allergy/AdvReac Type Severity Reaction Status Date / Time No Known Drug Allergies Allergy Verified 02/07/25 11:21 [facility] Active Problems All Active Problems (Updated 03/01/25 @ 20:33 by Trino Ralph, ) Acute on chronic respiratory failure with hypoxia and hypercapnia (Acute) Acute hypoxemic respiratory failure (Acute) Acute bronchitis due to Rhinovirus (Acute) Self-care deficit (Acute) Left leg swelling (Acute) Healthcare maintenance (Acute) Medication management (Acute) Insomnia due to mental disorder (Acute) Complex posttraumatic stress disorder (Acute) Screening for colon cancer (Acute) Severe obesity (BMI 35.0-39.9) with comorbidity (Acute) Tardive dyskinesia (Acute) Urinary retention (Acute) Thrombocytopenia (Acute) Urinary tract infection (Acute) Urinary incontinence (Acute) Hyperlipidemia (Chronic) Marijuana dependence (Chronic) Tobacco dependence (Chronic) TSH elevation (Chronic) Fatty (change of) liver, not elsewhere classified (Chronic) Osteoporosis (Chronic) Stage 3a chronic kidney disease (CKD) (Chronic) Anemia (Acute) COPD (chronic obstructive pulmonary disease) (Chronic) Chronic respiratory failure (Chronic) Migraine with aura (Chronic 10/22/06) Psoriasis (Chronic 11/20/06) Right knee buckling (Chronic) Left shoulder strain (Chronic) Asthma, moderate persistent (Chronic 10/22/06) Essential (primary) hypertension (Chronic 07/13/07) Bipolar 2 disorder (Chronic) Wheelchair dependent (Chronic) Generalized anxiety disorder (Chronic) Chronic pain (Chronic) Hyperkalemia (Chronic) Medical History Medical History (Updated 03/01/25 @ 20:33 by Trino Ralph DO) Insomnia Closed fracture of left distal fibula Ankle fracture, left Nondisplaced fracture of the lateral malleolus 12/03/2024 PTSD (post-traumatic stress disorder) Reactive depression (situational) Shoulder pain, right Nov 2024 - recent fall History of compression fracture of spine T12 (see CT 01/19/2022) History of osteomyelitis History of humerus fracture left arm 09/17/2024 History of fibula fracture History of femur fracture Metatarsal fracture Acute-subacute, oblique oriented 5th metatarsal shaft fracture. 06/02/2024 Infected prosthetic hip left hip Surgical History Surgical History Hx of inguinal hernia repair right Hx of cholecystectomy Hx of appendectomy Hx of lithotripsy 2007 History of left hip replacement revision due to osteomyelitis, OMEGA, 2016 Hx of bilateral hip replacements Family History Family History Mother Diabetes Heart failure Father Diabetes Heart failure Social History Social History Smoking Status: Current every day smoker Number of Years Smoked: 30 How many cigarettes a day do you smoke? (20 cigarettes=1 Pk): 6 Second hand tobacco smoke exposure: Yes Do you dip or chew tobacco?: No Do you vape?: No Patient requests smoking cessation consult: No Initiate information on smoking cessation: No Living arrangement: residential Marital Status: Living Condition: With caregiver(s) Support Person: Yes Living Situation Details: Patient resides at [facility] Physical Activity: Chairfast Level: Independent Home Mobility Equipment: Wheelchair Physical - Functional Details: Pivots for transfers. Do you feel safe in your home environment?: Yes History of physical, verbal, emotional, or financial abuse?: No ETOH Use: None Substance Use: cannabis (any form) Substance Use Details: last marijuana- Feb 24, 2025 Retired: Yes Service: No Exam Exam Vital Signs: Vital Signs x48h Temp Pulse Pulse Resp BP BP Pulse Ox 03/01/25 20:24 36.6 C 88 12 127/75 89 L 03/01/25 15:25 36.6 C 85 20 133/81 H 92 03/01/25 15:15 36.6 C 98 18 115/70 93 03/01/25 13:49 91 16 163/94 H 94 03/01/25 12:38 87 18 03/01/25 12:34 88 20 114/65 94 O2 Flow Rate 03/01/25 20:24 3 03/01/25 15:25 3 03/01/25 15:15 03/01/25 13:49 03/01/25 12:38 03/01/25 12:34 2 GEN: No acute distress HEENT: NC/AT, normal appearance of external ears and nose. Hearing baseline. No ecchymosis or hematomas in her head. Cardiac: Regular rate and rhythm, no murmurs. Generally euvolemic on exam. Pulm: Bilateral centrilobular wheezes. No rhonchi appreciated. No rales. Normal effort on 3 L. Abdomen: Obese, soft, nontender. No rebound or guarding Extremities: Moves all 4 extremities equally. Normal tone. Neuro: Face symmetric, CN II through XII intact grossly. No focal neurologic deficits. Psych: Mood euthymic with congruent affect. Conclusion/Plan Problem List (1) Acute on chronic respiratory failure with hypoxia and hypercapnia: (2) Acute bronchitis due to Rhinovirus: (3) COPD (chronic obstructive pulmonary disease): Plan: Patient presents with COPD exacerbation resulting in hypoxemic and hypercapnic respiratory failure. She is found to have rhinovirus on admission. She has had increased work of breathing, previously using 2 L with activity. Now she is up to 2 to 4 L continuously to maintain saturations at home over the previous 2 days prior to admission. She has had some increased sputum. Longstanding history of of COPD. She is on budesonide/formoterol. She has an as needed albuterol inhaler. Received a DuoNeb and a dose of Solu-Medrol in the ED - Will start on steroid pulse, prednisone 40 mg for 5-day total course - No change in sputum purulence, deferring starting on antibiotics - Scheduled DuoNebs 4 times daily - Can likely transition to as needed nebs in 1 to 2 days - Guaifenesin for cough - Wean O2 to maintain saturations 88-92% - Not in respiratory acidosis, not tachypneic, defer bipap - BMP AM Qualifiers: COPD type: unspecified COPD Qualified Code(s): J44.9 - Chronic obstructive pulmonary disease, unspecified (4) Bipolar 2 disorder: Plan: Reasonably well compensated bipolar disorder. She is on quetiapine 100 mg every evening, citalopram 10 mg daily, valproate 500 mg nightly, and trazadone 100mg qhs. - Continue home medicines as above - Delirium precautions (5) Chronic pain: Qualifiers: Chronic pain type: other chronic pain Qualified Code(s): G89.29 - Other chronic pain (6) Wheelchair dependent: Plan: Patient has chronic pains. Mostly in her legs and hips. She has a recent distal nonoperative left fibula fracture. She is in a wheelchair chronically. She has been using NSAIDs and Tylenol at home. Patient is at functional baseline, defer PT evaluation at this time - Would avoid NSAIDs, GFR 46 - Scheduled Tylenol 1 g 3 times daily - Oxycodone available for breakthrough pain - Continue home Lyrica 150 mg p.o. twice daily - Continue tizanidine 4 mg every 8 hours as needed Plan I spent a total of 61 minutes in the care of this patient today. This time was spent reviewing labs, vital signs, imaging, interviewing and examining the patient, and discussing plan of care with them and their other care providers. Major chronic illness with exacerbation. Data review as above. Reviewed her BMP, VBG, CBC, chest x-ray. Discussed her case with the ED doctor. They have decided to admit the patient to observation. [id number] Lab Results Lab results reviewed: Yes 03/01/25 12:27 03/01/25 12:27
[2025-03-01] MEDS: DOXYCYCLINE 100 MG TABLET PO STA (14:46)
[2025-03-01] MEDS: methylPREDNISolone SUCCINATE 125 MG/2 ML VIAL IVP STA (14:46)
[2025-03-01 14:57] LABS: VBG BASE EXCESS 10.9 mmol/L (-2 - +2); VBG PCO2 71.9 mmHg (41-51); VBG PH 7.318 (7.31-7.41); VBG PO2 43.9 mmHg (25-47); VBG TOTAL CO2 39.4 mmol/L (24-29)
[2025-03-01] MEDS ORDERED: oxyCODONE 5 MG TABLET PO PRN (15:40)
[2025-03-01] MEDS ORDERED: ONDANSETRON ODT 4 MG TABLET TL PRN (15:40)
[2025-03-01] MEDS ORDERED: SODIUM CHLORIDE FLUSH 0.9% 10 ML SYRINGE IVP PRN (15:40)
[2025-03-01] MEDS: oxyCODONE 5 MG TABLET PO PRN (16:13)
[2025-03-01] MEDS: SODIUM CHLORIDE FLUSH 0.9% 10 ML SYRINGE IVP SCH (16:14)
[2025-03-01] MEDS: ACETAMINOPHEN 500 MG TABLET PO SCH (16:17)
[2025-03-01] MEDS: ONDANSETRON 4 MG/2 ML VIAL IVP PRN (16:45)
--- NOTE | 2025-03-01 17:08 | PHARMACY PROGRESS NOTE ---
Best Possible Medication History Admit Date and Time: 03/01/25 [id number] Home Medications Medication Instructions Recorded Confirmed Type ibuprofen 600 mg tablet (IBU) 600 mg PO Q6H PRN pain 0 04/12/24 03/01/25 History albuterol sulfate 90 mcg/actuation 1 - 2 puff inhalati on Q4HR PRN 05/06/24 03/01/25 Rx aerosol inhaler (Ventolin HFA) Shortness Of Air/Wheezi ng #1 ea acetaminophen 500 mg tablet 500 mg PO QID PRN fever or pain 12/04/24 03/01/25 History (Tylenol Extra Strength) tizanidine 4 mg capsule 4 mg PO Q8H PRN muscle spast icity 12/09/24 03/01/25 Rx #60 caps diclofenac sodium 75 mg 75 mg PO BID PRN pain 03/01/25 History tablet,delayed release pregabalin 150 mg capsule 150 mg PO BID #60 caps 12/2603/01/25 Rx levothyroxine 25 mcg tablet 25 mcg PO DAILY 01/18/25 1 05/02/24 History (Euthyrox) cholecalciferol (vitamin D3) 25 50 mcg (2 x 25 mcg (1, 000 unit)) 01/20/25 03/01/25 Rx mcg (1,000 unit) tablet PO DAILY #60 tabs divalproex 500 mg tablet,extended 500 mg PO HS #30 tab s 02/14/25 03/01/25 Rx release 24 hr trazodone 100 mg tablet 100 mg PO HS #30 tabs 03/01/25 Rx vit,calcium 27-ferrous 1 tab PO DAILYWM #90 t abs 02/23/25 03/01/25 Rx fum 60 mg iron-folic acid 1 mg tablet (Trinatal Rx 1) budesonide-formoterol HFA 80 2 inh inhalation BID 05/2503/01/25 History mcg-4.5 mcg/actuation aerosol inhaler (Breyna) citalopram 10 mg tablet 10 mg PO DAILY 03/01/2505/25 History quetiapine 100 mg tablet 100 mg PO HS 03/01/25 History Processed by: Pharmacy Medications reviewed in ED?: Yes Medication History completed: Yes Patient Interview: Completed Secondary Source(s): Insurance records [facility] Statement: As the person ultimately responsible for medication therapy, providers are able to order a medication from an existing home medication list in [employer] via the "Reconcile Routine" prior to Confirmation of that medication by application support. Such practice is discouraged except when the physician, in their clinical judgment, deems that a medical need exists for a medication without regard to previous use.
[2025-03-01] MEDS: FORMOTEROL FUMARATE NEB 20 MCG/2 ML INH SCH (20:05)
[2025-03-01] MEDS: IPRATROPIUM/ALBUTEROL 3 ML NEB INH SCH (20:05)
--- NOTE | 2025-03-01 21:35 | PROVIDER PROGRESS NOTE ---
Progress Note Progress Note Progress Note: acute mental status change. obtunded. She had drug paraphenalia with her at the time of admit, and unsure if belongings were thoroughly sorted through . she is moaning to sternal rub and nailbed pressure. She did not react to straight cath for bladder scan >500cc. pupils are not pinpoint. report of fall earlier today. - Narcan 0.[address] head.
[2025-03-01] MEDS: NALOXONE 0.4 MG/ML VIAL IVP ONE (21:39)
--- NOTE | 2025-03-01 22:28 | CT Report ---
PROCEDURE: CT Head WO INDICATIONS: acute mental status change, fall earlier today TECHNIQUE: CT of the head was performed, without intravenous contrast. Reformats: Coronal and sagittal. For radiation dose reduction, the following was used: automated exposure control, adjustment of mA and/or kV according to patient size. COMPARISON: None. FINDINGS: Image quality: Diagnostic. CSF spaces: Basal cisterns are patent. No extra-axial fluid collections. Similar prominence of the ventricular system, out of proportion to degree of volume loss, with crowding of the sulci at the skull vertex, which may be seen in the setting of normal pressure hydrocephalus in the appropriate clinical setting. Brain: No midline shift. No intracranial mass effect or hemorrhage. Maldonado- white matter interface is normal. Confluent areas of periventricular and white matter hypodensity, suggestive of chronic small vessel ischemic disease. Skull and face: Calvarium and visualized facial bones are intact, without suspicious lesions. Sinuses: Partial opacification of the right maxillary sinus, right sphenoid sinus, and ethmoid air cells, as well is additional mild to moderate scattered mucosal thickening. Reactive changes of the sinus mckay suggest chronic sinusitis. IMPRESSION: No acute intracranial pathology. Similar prominence of the ventricular system, out of proportion to degree of volume loss, with crowding of the sulci at the skull vertex, which may be seen in the setting of normal pressure hydrocephalus in the appropriate clinical setting. Findings of chronic sinusitis. Reviewed by: Blanca Escudero MD on 03/01/2025 10:24 PM PST Approved by: Blanca Escudero MD on 03/01/2025 10:24 PM PST Station ID: [id number]
[2025-03-01 22:29] LABS: AMPHETAMINE SCREEN,URINE NEGATIVE (NEGATIVE); BARBITURATE SCREEN,UR NEGATIVE (NEGATIVE); BENZODIAZEPINES SCREEN, URINE NEGATIVE (NEGATIVE); COCAINE SCREEN URINE NEGATIVE (NEGATIVE); METHADONE SCREEN, URINE NEGATIVE (NEGATIVE); METHAMPHETAMINES SCREEN, URINE NEGATIVE (NEGATIVE); OPIATE SCREEN, URINE NEGATIVE (NEGATIVE)
[2025-03-01 22:30] LABS: BUPRENORPHINE SCREEN, URINE NEGATIVE (NEGATIVE); THC CANNABINOID SCREEN, URINE POSITIVE (NEGATIVE)
[2025-03-01] MEDS: PREGABALIN 100 MG CAPSULE PO SCH (22:32)
[2025-03-01] MEDS: DIVALPROEX ER 250 MG TABLET PO SCH (22:32)
[2025-03-01] MEDS: PREGABALIN 25 MG CAPSULE PO SCH (22:32)
[2025-03-02 06:46] LABS: HCT - HEMATOCRIT 43.9 % (37.0-47.0); HGB - HEMOGLOBIN 12.3 g/dL (12.0-16.0); MEAN PLATELET VOLUME 9.5 fL (7.9-10.8); NRBC ABSOLUTE COUNT (AUTO) 0.00 x10^3/uL; NUCLEATED RED BLOOD CELLS AUTO 0.0 /100WBC; PLT - PLATELET COUNT 175 10^3/uL (130-450); RED CELL DISTRIBUTION WIDTH 14.2 % (12.0-15.0)
[2025-03-02] MEDS: LEVOTHYROXINE 25 MCG TABLET PO SCH (07:13)
[2025-03-02 07:18] LABS: BUN - BLOOD UREA NITROGEN 22.0 mg/dL (6-20); CARBON DIOXIDE - CO2 35.0 mmol/L (21-32); CREATININE 1.2 mg/dL (0.6-1.3); GFR - MDRD 46.0 (>89)
--- NOTE | 2025-03-02 10:18 | PROVIDER PROGRESS NOTE ---
Subjective Prog Note Date Prog Note Date: 01/19/25 Prog Note Time: 08:41 Subjective Pt reports feeling: Improved Subjective: This morning, patient is very confused. She has moments of lucidity in between being upset and screaming. She is able to tell me her name, and her boyfriend's name. She does not know why she is in the hospital, and every time she forgets, she gets very upset. She has a continued and persistent cough. Current Medications Current Medications Current Medications: Current Medications Generic Name Dose Route Start Last Admin Trade Name Freq PRN Reason Stop Dose Admin Acetaminophen 650 mg 03/01/25 15:40 Acetaminophen 325 Mg Tablet PO Q4HR PRN Pain 1 to 4, or Fever Acetaminophen 1,000 mg 03/01/25 16:00 03/02/25 07:12 Acetaminophen 500 Mg Tablet PO Not Given TID RUBÉN Albuterol/Ipratropium 3 ml 03/01/25 19:00 03/02/25 07:01 Ipratropium/Albuterol 3 Ml Neb INH 3 ml RTQID RUBÉN Administration Citalopram Hydrobromide 10 mg 03/02/25 09:00 Citalopram 10 Mg Tablet PO DAILY RUBÉN Divalproex Sodium 500 mg 03/01/25 21:00 03/01/25 22:32 Divalproex Er 250 Mg Tablet PO Not Given HS RUBÉN Enoxaparin Sodium 40 mg 03/02/25 09:00 Enoxaparin 40 Mg/0.4 Ml Syringe SUBQ DAILY RUBÉN Formoterol Fumarate 20 mcg 03/01/25 19:00 03/02/25 07:01 Formoterol Fumarate Neb 20 Mcg/2 Ml INH 20 mcg RTBID RUBÉN Administration Guaifenesin 200 mg 03/01/25 20:34 Guaifenesin 100 Mg/5 Ml Udc PO Q4H PRN Cough Levothyroxine Sodium 25 mcg 03/02/25 07:00 03/02/25 07:13 Levothyroxine 25 Mcg Tablet PO Not Given QDAC RUBÉN Ondansetron HCl 4 mg 03/01/25 15:40 03/01/25 16:45 Ondansetron 4 Mg/2 Ml Vial IVP 4 mg Q6HR PRN Administration Nausea / Vomiting Ondansetron HCl 4 mg 03/01/25 15:40 Ondansetron Odt 4 Mg Tablet TL Q6HR PRN Nausea / Vomiting Oxycodone HCl 5 mg 03/01/25 15:40 Oxycodone 5 Mg Tablet PO Q4HR PRN Pain 5 to 7 Prednisone 40 mg 03/02/25 09:00 Prednisone 20 Mg Tablet PO 03/05/25 09:01 DAILY [facility] Pregabalin 50 mg 03/01/25 21:00 03/01/25 22:32 Pregabalin 25 Mg Capsule PO Not Given BID [facility] Pregabalin 100 mg 03/01/25 21:00 03/01/25 22:32 Pregabalin 100 Mg Capsule PO Not Given BID [facility] Multivit/Folic Acid/Iron 1 tab 03/02/25 08:00 Vitamin Tablet PO DAILYWM [facility] Quetiapine Fumarate 150 mg 03/01/25 21:00 03/01/25 22:33 Quetiapine 100 Mg Tablet PO Not Given QPM RUBÉN Sodium Chloride 10 ml 03/01/25 15:40 Sodium Chloride Flush 0.9% 10 Ml Syringe IVP PRN PRN NEEDED PER PROVIDER ORDERS Sodium Chloride 10 ml 03/01/25 17:00 03/02/25 01:18 Sodium Chloride Flush 0.9% 10 Ml Syringe IVP 10 ml 0100,0900,1700 [facility] Administration Trazodone HCl 100 mg 03/01/25 16:02 Trazodone 50 Mg Tablet PO HS PRN Insomnia Objective Vital Signs/Intake & Output Reviewed Vital Signs: Yes Vital Signs: Vital Signs x48h Temp Pulse Pulse Resp BP Pulse Ox O2 Flow Rate 03/02/25 09:00 98.2 F 71 16 130/75 92 3 03/02/25 07:04 3 03/02/25 07:04 79 21 03/02/25 05:00 97.7 F 73 20 151/87 H 95 3 Intake & Output: Intake & Output 02/27/25 02/28/25 03/01/25 03/02/25 23:59 23:59 23:59 23:59 Intake Total 200 / 200 Output Total 1200 / 1200 350 / 350 Balance -1000 / -1000 -350 / -350 Weight (kg) 123.5 kg Objective Comments/Other: Gen: Sitting upright, screaming and moaning. Continued and persistent cough with some sputum production. Heent: Normocephalic/atraumatic, normal appearance of external ears and nose. Cardiac: Regular rate and rhythm. No murmurs appreciated. No visible JVP elevation. No pitting edema. Pulm: Normal respirations without increased effort. Mild rhonchi. No wheezing. Abdomen: Soft, rounded, nontender. No rebound tenderness or guarding. Extremities: Moves all 4 extremities equally. Normal tone. Neuro: A&Ox1. Face symmetric, CN II through XII intact grossly. No focal neurologic deficits. Psych: Inchorent, moaning. Skin: Warm and intact, L lower extremity ulcer covered with patch is clean and dry without surrounding erythema or tenderness. Lab Results 03/02/25 06:25 03/02/25 06:25 Other Labs: Lab Results x24hrs 03/02/25 03/01/25 03/01/25 Range/Units 06:25 21:45 14:50 WBC 13.1 H (4.8-10.8) x10^3/uL RBC 4.32 (4.20-5.40) 10^6/uL Hgb 12.3 (12.0-16.0) g/dL Hct 43.9 (37.0-47.0) % MCV 101.6 H (81.0-99.0) fL MCH 28.5 (27.0-31.0) pg MCHC 28.0 L (32.0-36.0) g/dL RDW 14.2 (12.0-15.0) % Plt Count 175 (130-450) 10^3/uL MPV 9.5 (7.9-10.8) fL Neut # (Auto) 11.8 H (1.5-6.6) 10^3/uL Lymph # (Auto) 0.7 L (1.5-3.5) 10^3/uL Citrus # (Auto) 0.3 (0.0-1.0) 10^3/uL Eos # (Auto) 0.0 (0.0-0.7) 10^3/uL Baso # (Auto) 0.0 (0.0-0.1) 10^3/uL Absolute Nucleated RBC 0.00 x10^3/uL Nucleated RBC % 0.0 /100WBC D-Dimer (200.0-255.0) ng/mL VBG pH 7.318 (7.31-7.41) VBG pCO2 71.9 H (41-51) mmHg VBG pO2 43.9 (25-47) mmHg VBG HCO3 37.2 H (23-28) mmol/L VBG Total CO2 39.4 H (24-29) mmol/L VBG O2 Saturation 68.0 (60-80) % VBG Base Excess 10.9 H (-2 - +2) mmol/L Sodium 139 (135-145) mmol/L Potassium 5.5 H (3.5-4.5) mmol/L Chloride 100 L (101-111) mmol/L Carbon Dioxide 35 H (21-32) mmol/L Anion Gap 4.0 L (6-13) BUN 22 H (6-20) mg/dL Creatinine 1.2 (0.6-1.3) mg/dL Estimated GFR (MDRD) 46 L (>89) Glucose 143 H (74-104) mg/dL Calcium 9.3 (8.5-10.3) mg/dL Total Bilirubin (0.2-1.0) mg/dL AST (10-42) IU/L ALT (10-60) IU/L Alkaline Phosphatase (42-121) IU/L Total Protein (6.4-8.9) g/dL Albumin (3.2-5.5) g/dL Globulin (2.1-4.2) g/dL Albumin/Globulin Ratio (1.0-2.2) Nasal Adenovirus (PCR) Nasal B. parapertussis DNA (PCR) Nasal Coronavir 229E PCR Nasal Coronavir HKU1 PCR Nasal Coronavir NL63 PCR Nasal Coronavir OC43 PCR Nasal Enterovir/Rhinovir PCR Nasal Influenza B PCR Nasal Influenza A PCR Nasal Parainfluen 1 PCR Nasal Parainfluen 2 PCR Nasal Parainfluen 3 PCR Nasal Parainfluen 4 PCR Nasal RSV (PCR) Nasal B.pertussis DNA PCR Nasal C.pneumoniae (PCR) Virgilio Human Metapneumo PCR Nasal M.pneumoniae (PCR) Nasal SARS-CoV-2 (PCR) Urine Opiates Screen NEGATIVE (NEGATIVE) Ur Buprenorphine Scrn NEGATIVE (NEGATIVE) Ur Oxycodone Screen POSITIVE H (NEGATIVE) Urine Methadone Screen NEGATIVE (NEGATIVE) Urine Fentanyl Screen Negative (NEGATIVE) Ur Barbiturates Screen NEGATIVE (NEGATIVE) Ur Tricyclics Screen POSITIVE H (NEGATIVE) Ur Phencyclidine Scrn NEGATIVE (NEGATIVE) Ur Amphetamine Screen NEGATIVE (NEGATIVE) U Methamphetamines Scrn NEGATIVE (NEGATIVE) U Benzodiazepines Scrn NEGATIVE (NEGATIVE) Urine Cocaine Screen NEGATIVE (NEGATIVE) U Cannabinoids Screen POSITIVE H (NEGATIVE) Ur Drug Screen Comment CUTOFF CONC BELOW: 03/01/25 03/01/25 Range/Units 12:27 12:25 WBC 11.1 H (4.8-10.8) x10^3/uL RBC 3.69 L (4.20-5.40) 10^6/uL Hgb 10.8 L (12.0-16.0) g/dL Hct 36.6 L (37.0-47.0) % MCV 99.2 H (81.0-99.0) fL MCH 29.3 (27.0-31.0) pg MCHC 29.5 L (32.0-36.0) g/dL RDW 14.6 (12.0-15.0) % Plt Count 149 (130-450) 10^3/uL MPV 9.3 (7.9-10.8) fL Neut # (Auto) 8.3 H (1.5-6.6) 10^3/uL Lymph # (Auto) 1.6 (1.5-3.5) 10^3/uL Citrus # (Auto) 1.1 H (0.0-1.0) 10^3/uL Eos # (Auto) 0.1 (0.0-0.7) 10^3/uL Baso # (Auto) 0.0 (0.0-0.1) 10^3/uL Absolute Nucleated RBC 0.00 x10^3/uL Nucleated RBC % 0.0 /100WBC D-Dimer 575.8 H (200.0-255.0) ng/mL VBG pH (7.31-7.41) VBG pCO2 (41-51) mmHg VBG pO2 (25-47) mmHg VBG HCO3 (23-28) mmol/L VBG Total CO2 (24-29) mmol/L VBG O2 Saturation (60-80) % VBG Base Excess (-2 - +2) mmol/L Sodium 140 (135-145) mmol/L Potassium 4.7 H (3.5-4.5) mmol/L Chloride 99 L (101-111) mmol/L Carbon Dioxide 39 H* (21-32) mmol/L Anion Gap 2.0 L (6-13) BUN 20 (6-20) mg/dL Creatinine 1.2 (0.6-1.3) mg/dL Estimated GFR (MDRD) 46 L (>89) Glucose 96 (74-104) mg/dL Calcium 9.2 (8.5-10.3) mg/dL Total Bilirubin 0.3 (0.2-1.0) mg/dL AST 11 (10-42) IU/L ALT 7 L (10-60) IU/L Alkaline Phosphatase 55 (42-121) IU/L Total Protein 7.4 (6.4-8.9) g/dL Albumin 3.6 (3.2-5.5) g/dL Globulin 3.8 (2.1-4.2) g/dL Albumin/Globulin Ratio 0.9 L (1.0-2.2) Nasal Adenovirus (PCR) NOT DETECTED Nasal B. parapertussis DNA (PCR) NOT DETECTED Nasal Coronavir 229E PCR NOT DETECTED Nasal Coronavir HKU1 PCR NOT DETECTED Nasal Coronavir NL63 PCR NOT DETECTED Nasal Coronavir OC43 PCR NOT DETECTED Nasal Enterovir/Rhinovir PCR DETECTED A Nasal Influenza B PCR NOT DETECTED Nasal Influenza A PCR NOT DETECTED Nasal Parainfluen 1 PCR NOT DETECTED Nasal Parainfluen 2 PCR NOT DETECTED Nasal Parainfluen 3 PCR NOT DETECTED Nasal Parainfluen 4 PCR NOT DETECTED Nasal RSV (PCR) NOT DETECTED Nasal B.pertussis DNA PCR NOT DETECTED Nasal C.pneumoniae (PCR) NOT DETECTED Virgilio Human Metapneumo PCR NOT DETECTED Nasal M.pneumoniae (PCR) NOT DETECTED Nasal SARS-CoV-2 (PCR) NOT DETECTED Urine Opiates Screen (NEGATIVE) Ur Buprenorphine Scrn (NEGATIVE) Ur Oxycodone Screen (NEGATIVE) Urine Methadone Screen (NEGATIVE) Urine Fentanyl Screen (NEGATIVE) Ur Barbiturates Screen (NEGATIVE) Ur Tricyclics Screen (NEGATIVE) Ur Phencyclidine Scrn (NEGATIVE) Ur Amphetamine Screen (NEGATIVE) U Methamphetamines Scrn (NEGATIVE) U Benzodiazepines Scrn (NEGATIVE) Urine Cocaine Screen (NEGATIVE) U Cannabinoids Screen (NEGATIVE) Ur Drug Screen Comment ABX Reporting Has patient been on IV antibiotics over the past 48 hours?: Yes Sepsis Event Note (H) Evaluation Current Stage of Sepsis: Resolved Possible source of Sepsis: positive Genitourinary Confirmed Source and Organism (if known) of Sepsis: UTI, GNR awaiting culture and sensitivities Assessment/Plan Problem List (1) Acute on chronic respiratory failure with hypoxia and hypercapnia: (2) Acute bronchitis due to Rhinovirus: (3) COPD (chronic obstructive pulmonary disease): Impression: The following is the plan for the above three assessments: Normally, patient is on 2 L of oxygen. She presented for acute hypoxic respiratory failure requiring up to 4 L. Continue to wean down as tolerated. Likely due to rhinovirus which triggered a COPD exacerbation. CTA completed 03/01 shows no pulmonary embolus, no obvious infiltrates. Respiratory viral panel was positive for rhinovirus. She was started on oral prednisone yesterday for COPD exacerbation. Continued. Increase in frequency of cough, as well as sputum production. Started on azithromycin for 3 days. Procalcitonin orderedif positive, will add Rocephin for coverage of community-acquired pneumonia. Continue scheduled Robitussin. Qualifiers: COPD type: unspecified COPD Qualified Code(s): J44.9 - Chronic obstructive pulmonary disease, unspecified (4) Bipolar 2 disorder: (5) Acute metabolic encephalopathy: Impression: The following is the plan for the above two assessments: Overnight, patient had a marked change in her mental status. She is agitated, screaming, and is incoherent. Concern for possible polysubstance use while here. Some drug paraphernalia was found at bedside. RUDS is positive for oxycodone, tricyclics, cannabinoids. Chronic CO2 retention, stable. During her last stay here in late December, telepsych was consulted for down titration of medications. Will continue these at a lower dose: Citalopram 10 mg daily, Depakote 500 mg nightly, Seroquel 150 mg nightly, trazodone 100 mg nightly. (6) Chronic pain: Impression: Patient with recent distal nonoperative left fibula fracture. CTA also shows compression fractures of T5 and T12, both old. She is not having much pain from her ankle. She also takes multiple pain medications for chronic pain, fibromyalgia. As above, NSAIDs contraindicated in her renal state. Scheduled Tylenol every 6 hours, continue Lyrica 150 mg p.o. twice daily. Qualifiers: Chronic pain type: other chronic pain Qualified Code(s): G89.29 - Other chronic pain (7) Wheelchair dependent: Impression: Supportive care. (8) Stage 3a chronic kidney disease (CKD): Impression: Patient with known history of chronic kidney disease. Came in with creatinine of 1.5, now back at baseline of 1.2. Urinary retention today, needed straight catheterization. Suspect she may have some mild ATN from her infection, dehydration. - Monitor urine output, may consider odell if persistent retention - Hold all NSAIDs - Encourage oral hydration - BMP a.m. (9) Hyperkalemia: Impression: History of chronic mild hyperkalemia, likely associated with her CKD. Continune to trend BMP daily. (10) Chronic respiratory failure: Impression: Per her records, she may be on 2 L continuously per her recommendation however she states to her primary care doctor that she uses her oxygen as needed. On regular inhalers for COPD. Continue oxygen as needed, goal saturation 88 to 92%, continue home inhalers, albuterol prn. Qualifiers: Respiratory failure complication: hypoxia Qualified Code(s): J96.11 - Chronic respiratory failure with hypoxia (11) DM2 (diabetes mellitus, type 2): Impression: A1C 5.9. Glucose has been <120 during hospital stay. No insulin needed at this time. Qualifiers: Diabetes mellitus complication status: with other specified complication Diabetes mellitus buttermaker insulin use: unspecified buttermaker insulin use status Qualified Code(s): E11.69 - Type 2 diabetes mellitus with other specified complication
[2025-03-02] MEDS: CITALOPRAM 10 MG TABLET PO SCH (11:32)
[2025-03-02] MEDS: PRENATAL VITAMIN TABLET PO SCH (11:32)
[2025-03-02] MEDS: ENOXAPARIN 40 MG/0.4 ML SYRINGE SUBQ SCH (11:37)
[2025-03-02] MEDS: guaiFENesin 100 MG/5 ML UDC PO PRN (16:12)
[2025-03-02] MEDS: guaiFENesin 100 MG/5 ML UDC PO SCH (16:15)
[2025-03-02] MEDS ORDERED: PHENOL THROAT SPRAY 177 ML MM PRN (16:17)
[2025-03-02] MEDS: PHENOL THROAT SPRAY 177 ML MM PRN (16:25)
[2025-03-02] MEDS: BENZOCAINE/MENTHOL LOZENGE MM PRN (18:11)
[2025-03-02] MEDS: ACETAMINOPHEN 325 MG TABLET PO PRN (18:13)
[2025-03-02] MEDS: ENOXAPARIN 60 MG/0.6 ML SYRINGE SUBQ SCH (21:31)
[2025-03-03 07:04] LABS: VBG BASE EXCESS 11.7 mmol/L (-2 - +2); VBG PCO2 60.0 mmHg (41-51); VBG PH 7.392 (7.31-7.41); VBG PO2 50.4 mmHg (25-47); VBG TOTAL CO2 38.7 mmol/L (24-29)
[2025-03-03 07:10] LABS: HCT - HEMATOCRIT 36.3 % (37.0-47.0); HGB - HEMOGLOBIN 10.4 g/dL (12.0-16.0); MEAN PLATELET VOLUME 9.6 fL (7.9-10.8); NRBC ABSOLUTE COUNT (AUTO) 0.00 x10^3/uL; NUCLEATED RED BLOOD CELLS AUTO 0.0 /100WBC; PLT - PLATELET COUNT 155 10^3/uL (130-450); RED CELL DISTRIBUTION WIDTH 14.3 % (12.0-15.0)
[2025-03-03 07:28] LABS: BUN - BLOOD UREA NITROGEN 30.0 mg/dL (6-20); CARBON DIOXIDE - CO2 37.0 mmol/L (21-32); CREATININE 1.2 mg/dL (0.6-1.3); GFR - MDRD 46.0 (>89)
[2025-03-03] MEDS: AZITHROMYCIN 250 MG TABLET PO SCH (09:08)
--- NOTE | 2025-03-03 11:11 | PROVIDER PROGRESS NOTE ---
Subjective Subjective Subjective: This morning, patient is improved. She is alert and oriented x 4, and appropriate. She still has a persistent cough. She denies any fevers or chills. She is feeling a little better. She is still having some shortness of breath. Current Medications Current Medications Current Medications: Current Medications Generic Name Dose Route Start Last Admin Trade Name Freq PRN Reason Stop Dose Admin Acetaminophen 650 mg 03/01/25 15:40 03/02/25 18:13 Acetaminophen 325 Mg Tablet PO 650 mg Q4HR PRN Administration Pain 1 to 4, or Fever Acetaminophen 1,000 mg 03/01/25 16:00 03/03/25 06:05 Acetaminophen 500 Mg Tablet PO 1,000 mg TID RUBÉN Administration Albuterol/Ipratropium 3 ml 03/01/25 19:00 03/03/25 10:15 Ipratropium/Albuterol 3 Ml Neb INH 3 ml RTQID RUBÉN Administration Azithromycin 500 mg 03/03/25 09:00 03/03/25 09:08 Azithromycin 250 Mg Tablet PO 500 mg DAILY RUBÉN Administration Citalopram Hydrobromide 10 mg 03/02/25 09:00 03/03/25 09:08 Citalopram 10 Mg Tablet PO 10 mg DAILY RUBÉN Administration Divalproex Sodium 500 mg 03/01/25 21:00 03/02/25 21:31 Divalproex Er 250 Mg Tablet PO 500 mg HS RUBÉN Administration Enoxaparin Sodium 60 mg 03/02/25 21:00 03/03/25 09:08 Enoxaparin 60 Mg/0.6 Ml Syringe SUBQ 60 mg BID RUBÉN Administration Formoterol Fumarate 20 mcg 03/01/25 19:00 03/03/25 07:35 Formoterol Fumarate Neb 20 Mcg/2 Ml INH 20 mcg RTBID RUBÉN Administration Guaifenesin 200 mg 03/02/25 16:00 03/03/25 06:04 Guaifenesin 100 Mg/5 Ml Udc PO 200 mg Q4H RUBÉN Administration Levothyroxine Sodium 25 mcg 03/02/25 07:00 03/03/25 06:05 Levothyroxine 25 Mcg Tablet PO 25 mcg QDAC RUBÉN Administration Ondansetron HCl 4 mg 03/01/25 15:40 03/01/25 16:45 Ondansetron 4 Mg/2 Ml Vial IVP 4 mg Q6HR PRN Administration Nausea / Vomiting Ondansetron HCl 4 mg 03/01/25 15:40 Ondansetron Odt 4 Mg Tablet TL Q6HR PRN Nausea / Vomiting Phenol/Menthol 2 sprays 03/02/25 16:17 03/02/25 21:35 Phenol Throat [place] 177 Ml MM 2 sprays Q2HR PRN Administration Throat Pain Phenol/Menthol 1 sprays 03/02/25 16:17 Phenol Throat [place] 177 Ml MM Q4HR PRN Mouth Sore Pain Prednisone 40 mg 03/02/25 09:00 03/03/25 09:08 Prednisone 20 Mg Tablet PO 03/05/25 09:01 40 mg DAILY RUBÉN Administration Pregabalin 50 mg 03/01/25 21:00 03/03/25 09:08 Pregabalin 25 Mg Capsule PO 50 mg BID RUBÉN Administration Pregabalin 100 mg 03/01/25 21:00 03/03/25 09:08 Pregabalin 100 Mg Capsule PO 100 mg BID RUBÉN Administration Multivit/Folic Acid/Iron 1 tab 03/02/25 08:00 03/03/25 09:08 Vitamin Tablet PO 1 tab DAILYWM RUBÉN Administration Quetiapine Fumarate 150 mg 03/01/25 21:00 03/02/25 21:31 Quetiapine 100 Mg Tablet PO 150 mg QPM RUBÉN Administration Sodium Chloride 10 ml 03/01/25 15:40 Sodium Chloride Flush 0.9% 10 Ml Syringe IVP PRN PRN NEEDED PER PROVIDER ORDERS Sodium Chloride 10 ml 03/01/25 17:00 03/03/25 09:08 Sodium Chloride Flush 0.9% 10 Ml Syringe IVP 10 ml 0100,0900,1700 RUBÉN Administration Throat Lozenges 1 lozenge 03/02/25 16:17 03/03/25 06:05 Benzocaine/Menthol Lozenge MM 1 lozenge Q2HR PRN Administration Mouth Sore Pain Trazodone HCl 100 mg 03/01/25 16:02 03/02/25 21:42 Trazodone 50 Mg Tablet PO 100 mg HS PRN Administration Insomnia Objective Vital Signs/Intake & Output Reviewed Vital Signs: Yes Vital Signs: Vital Signs x48h Temp Pulse Pulse Resp BP Pulse Ox O2 Flow Rate 03/03/25 10:15 82 20 03/03/25 10:15 1 03/03/25 08:55 98.2 F 78 20 101/65 95 1 03/03/25 07:35 2 03/03/25 07:35 77 21 03/03/25 05:43 99 3 Intake & Output: Intake & Output 02/28/25 03/01/25 03/02/25 03/03/25 23:59 23:59 23:59 23:59 Intake Total 200 / 200 1137 / 1137 600 / 600 Output Total 1200 / 1200 1375 / 1375 275 / 275 Balance -1000 / -1000 -238 / -238 325 / 325 Weight (kg) 123.5 kg Objective Comments/Other: Gen: Sitting upright, screaming and moaning. Continued and persistent cough with some sputum production. Heent: Normocephalic/atraumatic, normal appearance of external ears and nose. Cardiac: Regular rate and rhythm. No murmurs appreciated. No visible JVP elevation. No pitting edema. Pulm: Normal respirations without increased effort. Mild rhonchi. No wheezing. Abdomen: Soft, rounded, nontender. No rebound tenderness or guarding. Extremities: Moves all 4 extremities equally. Normal tone. Neuro: A&Ox1. Face symmetric, CN II through XII intact grossly. No focal neurologic deficits. Psych: Inchorent, moaning. Skin: Warm and intact, L lower extremity ulcer covered with patch is clean and dry without surrounding erythema or tenderness. Lab Results 03/03/25 06:50 03/03/25 06:50 Other Labs: Lab Results x24hrs 03/03/25 03/02/25 Range/Units 06:50 06:25 WBC 9.7 (4.8-10.8) x10^3/uL RBC 3.61 L (4.20-5.40) 10^6/uL Hgb 10.4 L (12.0-16.0) g/dL Hct 36.3 L (37.0-47.0) % MCV 100.6 H (81.0-99.0) fL MCH 28.8 (27.0-31.0) pg MCHC 28.7 L (32.0-36.0) g/dL RDW 14.3 (12.0-15.0) % Plt Count 155 (130-450) 10^3/uL MPV 9.6 (7.9-10.8) fL Neut # (Auto) 6.8 H (1.5-6.6) 10^3/uL Lymph # (Auto) 1.8 (1.5-3.5) 10^3/uL [place] # (Auto) 0.9 (0.0-1.0) 10^3/uL Eos # (Auto) 0.0 (0.0-0.7) 10^3/uL Baso # (Auto) 0.0 (0.0-0.1) 10^3/uL Absolute Nucleated RBC 0.00 x10^3/uL Nucleated RBC % 0.0 /100WBC VBG pH 7.392 (7.31-7.41) VBG pCO2 60.0 H (41-51) mmHg VBG pO2 50.4 H (25-47) mmHg VBG HCO3 36.9 H (23-28) mmol/L VBG Total CO2 38.7 H (24-29) mmol/L VBG O2 Saturation 83.0 H (60-80) % VBG Base Excess 11.7 H (-2 - +2) mmol/L Sodium 139 (135-145) mmol/L Potassium 4.8 H (3.5-4.5) mmol/L Chloride 99 L (101-111) mmol/L Carbon Dioxide 37 H (21-32) mmol/L Anion Gap 3.0 L (6-13) BUN 30 H (6-20) mg/dL Creatinine 1.2 (0.6-1.3) mg/dL Estimated GFR (MDRD) 46 L (>89) Glucose 95 (74-104) mg/dL Calcium 8.8 (8.5-10.3) mg/dL Procalcitonin Immunoas 0.09 (<0.5) ng/mL ABX Reporting Has patient been on IV antibiotics over the past 48 hours?: Yes Sepsis Event Note (H) Evaluation Current Stage of Sepsis: Resolved Possible source of Sepsis: positive Genitourinary Confirmed Source and Organism (if known) of Sepsis: UTI, GNR awaiting culture and sensitivities Assessment/Plan Problem List (1) Acute on chronic respiratory failure with hypoxia and hypercapnia: (2) Acute bronchitis due to Rhinovirus: (3) COPD (chronic obstructive pulmonary disease): Impression: The following is the plan for the above three assessments: Normally, patient is on 2 L of oxygen. She presented for acute hypoxic respiratory failure requiring up to 4 L. Today, this is improved, although patient continues to have subjective dyspnea. During her coughing fits, she does desaturate to the low 80s. Continue to wean down as tolerated. Likely due to rhinovirus which triggered a COPD exacerbation. Likely will be medically cleared 03/04. CTA completed 03/01 shows no pulmonary embolus, no obvious infiltrates. Respiratory viral panel was positive for rhinovirus. She was started on oral prednisone yesterday for COPD exacerbation. Continued. Increase in frequency of cough, as well as sputum production. Started on azithromycin for 3 days. Procalcitonin ordered negative. Continue scheduled Robitussin. Qualifiers: COPD type: unspecified COPD Qualified Code(s): J44.9 - Chronic obstructive pulmonary disease, unspecified (4) Bipolar 2 disorder: (5) Acute metabolic encephalopathy: Impression: The following is the plan for the above two assessments: Resolved. Yesterday, patient had a marked change in her mental status. She was agitated, screaming, and was incoherent. Concern for possible polysubstance use while here. Some drug paraphernalia was found at bedside. RUDS is positive for oxycodone, tricyclics, cannabinoids. Chronic CO2 retention, stable. During her last stay here in late December, telepsych was consulted for down titration of medications. Will continue these at a lower dose: Citalopram 10 mg daily, Depakote 500 mg nightly, Seroquel 150 mg nightly, trazodone 100 mg nightly. (6) Chronic pain: Impression: Patient with recent distal nonoperative left fibula fracture. CTA also shows compression fractures of T5 and T12, both old. She is not having much pain from her ankle. She also takes multiple pain medications for chronic pain, fibromyalgia. Scheduled Tylenol every 6 hours, continue Lyrica 150 mg p.o. twice daily. Qualifiers: Chronic pain type: other chronic pain Qualified Code(s): G89.29 - Other chronic pain (7) Wheelchair dependent: Impression: Supportive care. (8) Stage 3a chronic kidney disease (CKD): Impression: Patient with known history of chronic kidney disease. Came in with creatinine of 1.5, now back at baseline of 1.2. Urinary retention today, needed straight catheterization. Suspect she may have some mild ATN from her infection, dehydration. (9) Hyperkalemia: Impression: History of chronic mild hyperkalemia, likely associated with her CKD. Continune to trend BMP daily. (10) Chronic respiratory failure: Impression: Per her records, she may be on 2 L continuously per her recommendation however she states to her primary care doctor that she uses her oxygen as needed. On regular inhalers for COPD. Continue oxygen as needed, goal saturation 88 to 92%, continue home inhalers, albuterol prn. Qualifiers: Respiratory failure complication: hypoxia Qualified Code(s): J96.11 - Chronic respiratory failure with hypoxia (11) DM2 (diabetes mellitus, type 2): Impression: A1C 5.9. Glucose has been <120 during hospital stay. No insulin needed at this time. Qualifiers: Diabetes mellitus complication status: with other specified complication Diabetes mellitus market research consultant insulin use: unspecified market research consultant insulin use status Qualified Code(s): E11.69 - Type 2 diabetes mellitus with other specified complication
[2025-03-04 06:59] LABS: HCT - HEMATOCRIT 34.4 % (37.0-47.0); HGB - HEMOGLOBIN 10.1 g/dL (12.0-16.0); MEAN PLATELET VOLUME 9.6 fL (7.9-10.8); NRBC ABSOLUTE COUNT (AUTO) 0.00 x10^3/uL; NUCLEATED RED BLOOD CELLS AUTO 0.0 /100WBC; PLT - PLATELET COUNT 173 10^3/uL (130-450); RED CELL DISTRIBUTION WIDTH 14.3 % (12.0-15.0)
--- NOTE | 2025-03-04 07:28 | Discharge Summary ---
"Discharge Summary Admit Date: 03/01/25 Discharge Date: 03/04/25 Discharging Provider: Dr. Jb Matthews Primary Care Provider: Maria Guadalupe Mon Code Status: Do Not Attempt Resuscitation Discharge Facility [facility]: [facility] DIAGNOSES Discharge Diagnoses with Status of Each Condition: Acute on chronic respiratory failure with hypoxia and hypercapniaresolved. Patient is now back down to her 1 to 2 L. Acute bronchitis due to rhinovirus, COPD with exacerbationpatient will need to complete 2 more days of prednisone and 1 more day of azithromycin. Still remains with a cough, and can take Robitussin as needed for this. CT was completed which showed no pulmonary embolism or obvious infiltrates. Bipolar disorder type II, acute metabolic encephalopathyresolved. 2 days ago, patient had a marked change in mental status and was agitated and screaming. Concern for possible polysubstance use while here as some drug paraphernalia was found at bedside. RUDS was positive for oxycodone, tricyclic and cannabinoids. Advised to abstain from illicit substance use. Chronic paincontinue home Tylenol and Lyrica. [facility] Stage IIIa chronic kidney diseasecreatinine at baseline. Hyperkalemiaresolved. Chronic respiratory failurecontinue 2 L of oxygen as needed. Continue home inhalers. HPI History of Present Illness: Per Dr. Trino Ralph: Patient is a 54-year-old female with a history of COPD, on 2 L of O2 chronically, T2DM, PTSD, bipolar disorder Who presents from [facility] with acute on chronic hypoxemic respiratory failure. She is found to be in COPD exacerbation. With rhinovirus on viral respiratory panel. Patient says she was doing well at her facility until the last couple of days. During that time, she has had increased work of breathing. She is normally on 2 L for sleep and exertion, but has been on 2 to 4 L continuously over the last day. She has had more cough. She feels pain all over. She fell and scraped her head but not any loss of consciousness. She is found in the ED to have increased work of breathing. Requiring 3 to 4 L to maintain her saturations. She has a mild leukocytosis at 11. Her renal function is normal. Her VBG shows a pCO2 of 61. Potassium of 4.7. Chest x-ray without any focal consolidation. The patient has a DNR/DNI POLST. She agrees that this is her CODE STATUS. She still has not yet identified a person who would be her POA. She does now have a boyfriend, but is unsure if she would want to do list to him. CONSULTS | PROCEDURES Consultations: Respiratory therapy Procedures: Head CT12/2no acute intracranial pathology. CTAno pulmonary embolus, no acute cardiopulmonary pathology, development of compression fractures of T5 and T12, both old. Chest x-rayperibronchial cuffing. HOSPITAL COURSE Hospital Course: Patient is a 54-year-old female with a history of bipolar disorder, chronic hypoxic respiratory failure on 2 L due to COPD who presented for shortness of breath, as well as acute hypoxia. She was requiring up to 4 L of oxygen. As such, she was brought in. Respiratory viral panel was positive for rhinovirus. She had increased frequency and change in her sputum. She was started on prednisone burst, as well as 3 days of azithromycin. While here, she had a sudden change in mental status which included agitation. This resolved quickly. Patient is now back at her baseline. She is back on 1 to 2 L of oxygen. She is doing well. She will be discharged back to [facility]. Palliative care consultation is recommended, to be made by her primary care provider at next visit. She has had multiple visits for similar complaints in the past few weeks. Per home health was also ordered for her. [facility] request, she was discharged home with nebulized DuoNebs to be used as needed. She was discharged home in stable condition. ALLERGIES Allergies Allergy/AdvReac Type Severity Reaction Status Date / Time shellfish derived Allergy Severe Anaphylaxis Verified 03/03/25 16:06 seafood AdvReac Severe Anaphylaxis Uncoded 03/03/25 16:06 MEDICATIONS Ambulatory Orders Medication Instructions Recorded Confirmed ibuprofen 600 mg tablet (IBU) 600 mg PO Q6H PRN pain 0 04/12/24 03/01/25 albuterol sulfate 90 mcg/actuation 1 - 2 puff inhalati on Q4HR PRN 05/06/24 03/01/25 aerosol inhaler (Ventolin HFA) Shortness Of Air/Wheezi ng #1 ea acetaminophen 500 mg tablet 500 mg PO QID PRN fever or pain 12/04/24 03/01/25 (Tylenol Extra Strength) tizanidine 4 mg capsule 4 mg PO Q8H PRN muscle spast icity 12/09/24 03/01/25 #60 caps diclofenac sodium 75 mg 75 mg PO BID PRN pain 03/01/25 tablet,delayed release pregabalin 150 mg capsule 150 mg PO BID #60 caps 12/2603/01/25 levothyroxine 25 mcg tablet 25 mcg PO DAILY 01/18/25 1 05/02/24 (Euthyrox) cholecalciferol (vitamin D3) 25 50 mcg (2 x 25 mcg (1, 000 unit)) 01/20/25 03/01/25 mcg (1,000 unit) tablet PO DAILY #60 tabs divalproex 500 mg tablet,extended 500 mg PO HS #30 tab s 02/14/25 03/01/25 release 24 hr trazodone 100 mg tablet 100 mg PO HS #30 tabs 03/01/25 vit,calcium 27-ferrous 1 tab PO DAILYWM #90 t abs 02/23/25 03/01/25 fum 60 mg iron-folic acid 1 mg tablet (Trinatal Rx 1) budesonide-formoterol HFA 80 2 inh inhalation BID 05/2503/01/25 mcg-4.5 mcg/actuation aerosol inhaler (Breyna) citalopram 10 mg tablet 10 mg PO DAILY 03/01/2505/25 quetiapine 100 mg tablet 100 mg PO HS 03/01/25 azithromycin 250 mg tablet 500 mg (2 x 250 mg) PO LESLEY Y #2 03/04/25 tabs ipratropium 0.5 mg-albuterol 3 mg 3 ml inhalation QID PRN shortness 03/04/25 (2.5 mg base)/3 mL nebulization of breath #90 mL soln prednisone 20 mg tablet 40 mg (2 x 20 mg) PO DAILY 2 days 03/04/25 #4 tabs PHYSICAL EXAM AT DISCHARGE Vital Signs: Vital Signs x48h Temp Pulse Pulse Resp BP Pulse Ox O2 Flow Rate 03/04/25 11:11 78 18 1 03/04/25 08:15 97.9 F 63 18 92/67 92 1 03/04/25 07:16 80 18 03/04/25 07:15 1 Gen: No acute distress, no anxiety. Calm and cooperative. Heent: Normocephalic/atraumatic, normal appearance of external ears and nose. Cardiac: Regular rate and rhythm. No murmurs appreciated. No visible JVP elevation. No pitting edema. Pulm: Normal respirations without increased effort. Mild rhonchi. No wheezing. Abdomen: Soft, rounded, nontender. No rebound tenderness or guarding. Extremities: Moves all 4 extremities equally. Normal tone. Neuro: A&Ox1. Face symmetric, CN II through XII intact grossly. No focal neurologic deficits. Psych: Inchorent, moaning. Skin: Warm and intact, L lower extremity ulcer covered with patch is clean and dry without surrounding erythema or tenderness. LABS 03/04/25 06:25 03/04/25 06:25 DIAGNOSTIC IMAGING Diagnostic Imaging Results: Final report reviewed FOLLOW UP Follow Up: Follow up PCP. Follow up with Palliative care. TIME SPENT Time Spent in Discharge (Minutes): 35 Discharge Plan Discharge Patient Disposition: 06 Home Health Service Prescriptions: New azithromycin 250 mg Tablet 500 mg PO DAILY Qty: 2 0RF ipratropium-albuterol 0.5 mg-3 mg(2.5 mg base)/3 mL solution for nebulization 3 ml inhalation QID PRN (Reason: shortness of breath) Qty: 90 0RF prednisone 20 mg Tablet 40 mg PO DAILY 2 Days Qty: 4 0RF Continued pregabalin 150 mg capsule 150 mg PO BID Qty: 60 5RF Trinatal Rx 1 60 mg iron-1 mg tablet 1 tab PO DAILYWM Qty: 90 3RF ibuprofen [IBU] 600 mg tablet 600 mg PO Q6H PRN (Reason: pain) acetaminophen [Tylenol Extra Strength] 500 mg tablet 500 mg PO QID PRN (Reason: fever or pain) levothyroxine [Euthyrox] 25 mcg tablet 25 mcg PO DAILY Rx Instructions: Take 1 tablet by mouth once a day cholecalciferol (vitamin D3) 25 mcg (1,000 unit) Tablet 50 mcg PO DAILY Qty: 60 0RF quetiapine 100 mg tablet 100 mg PO HS citalopram 10 mg tablet 10 mg PO DAILY budesonide-formoterol [Breyna] 80-4.5 mcg/actuation HFA aerosol inhaler 2 inh inhalation BID tizanidine 4 mg capsule 4 mg PO Q8H PRN (Reason: muscle spasticity) Qty: 60 5RF Rx Instructions: for muscle pain and spasm albuterol sulfate [Ventolin HFA] 90 mcg/actuation HFA aerosol inhaler 1 - 2 puff inhalation Q4HR PRN (Reason: Shortness Of Air/Wheezing) Qty: 1 12RF diclofenac sodium 75 mg tablet,delayed release (DR/EC) 75 mg PO BID PRN (Reason: pain) trazodone 100 mg tablet 100 mg PO HS Qty: 30 2RF divalproex 500 mg tablet extended release 24 hr 500 mg PO HS Qty: 30 2RF Activity Restrictions: Activity as Tolerated Diet: Regular Health Concerns: You are being discharged after treatment for a flare-up (exacerbation) of your chronic obstructive pulmonary disease (COPD) caused by a viral infection. Following these instructions carefully will help you recover and reduce your risk of another flare-up. Continue your regular COPD inhalers as prescribed. These help keep your airways open and prevent future flare-up. Short-acting rescue inhalers: Use your albuterol or ipratropium inhaler as needed for shortness of breath. If you need to use it more than usual, contact your doctor. Steroid medication: You may have been prescribed a short course of oral steroids (such as prednisone). Take these exactly as directed, typically for 5 days. Do not stop them early or continue them longer than prescribed without talking to your doctor. Antibiotics: If you were prescribed antibiotics (one more day of azithromycin), complete the full course even if you feel better. Inhaler technique: Before leaving, make sure you understand how to use your inhalers correctly. Using them incorrectly means the medicine won't work as well. Ask your nurse or respiratory therapist to watch you use your inhaler to make sure you're doing it right. Call your doctor or go to the emergency room if you experience: - Increased shortness of breath that doesn't improve with your rescue inhaler - Chest pain or pressure - Confusion or difficulty staying awake - Blue or goncalves lips or fingernails - Coughing up blood - Fever that doesn't go away - Swelling in your legs or ankles Recovery and Follow-Up Follow-up appointment: Schedule an appointment with your doctor within 1-2 weeks of discharge. This is important to make sure you're recovering well. Oxygen therapy: If you were prescribed home oxygen, use it exactly as directed. Your doctor will tell you how many hours per day you need it and what flow rate to use. Preventing Future Flare-Ups Avoid triggers: Stay away from cigarette smoke, air pollution, strong fumes, and very cold air. These can irritate your lungs and cause another flare-up. Vaccinations: Get your annual flu shot and ask your doctor about the pneumonia vaccine. Since your recent flare-up was caused by a virus, staying up to date with vaccinations is especially important. Watch for early symptoms: Learn to recognize when a flare-up is starting. Early signs include increased shortness of breath, more coughing, change in mucus color or amount, or feeling more tired than usual. Contact your doctor early if you notice these changes.[1] Daily Health Habits - Take all your medications as prescribed every day, even when you feel well - Stay active within your limits - gentle walking can help your recovery - Eat a healthy diet and stay hydrated - Get enough rest - Wash your hands frequently to avoid infections - Avoid people who are sick when possible Important Reminders COPD flare-ups can be serious, and having one increases your risk of having another. Following these instructions and staying in close contact with your healthcare team will give you the best chance of staying healthy and out of the hospital. If you have questions or concerns at any time, don't hesitate to contact your doctor's office. We are glad you're feeling better. Print Language: Swedish Patient Instructions: COPD: Chronic Coughing Stand Alone Forms: PCP List Follow-up Care: Maria Gaudalupe Mon BASE PLY HAND [Primary Care Provider, Family Practice] Vitals documented within 30 minutes of discharge?: Yes"
[2025-03-04 07:34] LABS: BUN - BLOOD UREA NITROGEN 32.0 mg/dL (6-20); CARBON DIOXIDE - CO2 37.0 mmol/L (21-32); CREATININE 1.1 mg/dL (0.6-1.3); GFR - MDRD 51.0 (>89)
[2025-03-04 08:15] VITALS: BP 92/67
[2025-03-04] MEDS: DOCUSATE SODIUM 250 MG CAPSULE PO SCH (08:48)
[2025-03-04 16:49] VITALS: TEMP 98.1; O2SAT 93
--- OUTSIDE RECORDS SUMMARY | 2025-03-05 20:57 | EXTERNAL MEDICAL SUMMARY RPT | Encounter Summary ---
Author Organization [facility] Address [facility] [address] Care Team Providers Care Core Drill Operator Helper Name Role Phone Unavailable Primary Care Provider Unavailabl e Encounter Details Date Type Department Care Team (Latest Contact Info) Description 04/04/2016 Lab Requisition [place], [place] [address] [place], [place] [phone] Evelyn Medina MD [address] [place] [address] Infection and inflammatory reaction due to other internal joint prosthesis, subsequent encounter Social History Tobacco Use Types Packs/Day Years Used Date Smoking Tobacco: Never Assessed Comments Unknown Sex and Gender Information Value Date Recorded Sex Assigned at Not on file Legal Sex Female 1:39 PM PDT Gender Identity Not on file Sexual Orientation Not on file documented as of this encounter Plan of Treatment Not on file documented as of this encounter Procedures Procedure Name Priority Date/Time Associated Diagnosis Comments *CBC WITH DIFFERENTIAL, LAB GENERATED ORDER STAT 04/04/2016 12:30 PM PST Infection and inflammatory reaction due to other internal joint prosthesis, subsequent encounter SEDIMENTATION RATE, WESTERGREN STAT 04/04/2016 12:30 PM PST Infection and inflammatory reaction due to other internal joint prosthesis, subsequent encounter ALT STAT 04/04/2016 12:30 PM PST Infection and inflammatory reaction due to other internal joint prosthesis, subsequent encounter CBC WITH DIFFERENTIAL Routine 04/04/2016 12:30 PM PST Infection and inflammatory reaction due to other internal joint prosthesis, subsequent encounter CREATININE STAT 04/04/2016 12:30 PM PST Infection and inflammatory reaction due to other internal joint prosthesis, subsequent encounter VANCOMYCIN,TROUGH STAT 04/04/2016 12: 30 PM PST Infection and inflammatory reaction due to other internal joint prosthesis, subsequent encounter documented in this encounter Results * (ABNORMAL) Complete Blood Count with Automated Differential (04/04/2016 12:30 PM PST) WBC 7.2 4.0 - 11.0 K/uL 04/04/2016 4:12 PM PST [facility] RBC 3.19(L) 3.75 - 5.07 M/uL 04/04/2016 4:12 PM [facility] HGB 8.6(L) 11.5 - 15.0 g/dL 04/04/2016 4:12 PM PST [facility] HCT 28.6(L) 34.8 - 45.0 % 04/04/2016 4:12 PM [facility] MCV 89.7 80.0 - 100.0 fL 04/04/2016 4:12 PM [facility] MCH 27.0 25.9 - 34.2 pg 04/04/2016 4:12 PM PST [facility] MCHC 30.1(L) 31.5 - 36.5 g/dL 04/04/2016 4:12 PM [facility] RDW 16.4(H) 11.5 - 14.2 % 04/04/2016 4:12 PM PST [facility] Platelets 331 150 - 400 K/uL 04/04/2016 4:12 PM PST [facility] MPV 8.7 8.5 - 12.4 fL 04/04/2016 4:12 PM PST [facility] Neutrophils % 58.3 % 04/04/2016 4:12 PM PST [facility] Immat Gran % 1.0 % 04/04/2016 4:12 PM PST [facility] Lymphocytes % 24.8 % 04/04/2016 4:12 PM PST [facility] Monocytes % 8.5 % 04/04/2016 4:12 PM PST [facility] Eosinophils % 6.7 % 04/04/2016 4:12 PM PST [facility] Basophils % 0.7 % 04/04/2016 4:12 PM PST [facility] Neutrophils # 4.2 1.5 - 8.0 K/uL 04/04/2016 4:12 PM [facility] Immat Gran # 0.1 0.0 - 0.1 K/uL 04/04/2016 4:12 PM [facility] Lymphocytes # 1.8 1.0 - 3.5 K/uL 04/04/2016 4:12 PM [facility] Monocytes # 0.6 0.2 - 1.0 K/uL 04/04/2016 4:12 PM [facility] Eosinophils # 0.5 0.0 - 0.5 K/uL 04/04/2016 4:12 PM [facility] Basophils # 0.1 0.0 - 0.2 K/uL 04/04/2016 4:12 PM [facility] nRBC <=0 % 04/04/2016 4:12 PM [facility] Blood 04/04/2016 12:3 0 PM PST 04/04/2016 4:08 PM PST Evelyn Medina MD LAB BLOOD ORDERABLES Final R esult Performing Organization Address City/[facility] Co de Phone Number [facility] [employer] [address] [place] [address] * (ABNORMAL) Vancomycin, Trough (04/04/2016 12:30 PM PST) [facility] Vancomycin, Trough 22.1(H) 10.0 - 20.0 ug/mL 04/04/2016 4:21 PM [facility] Last Dose Date 7 04/04/2016 4:21 PM [facility] Last Dose Time 1300 04/04/2016 4:21 PM [facility] Blood 04/04/2016 12:3 0 PM PST 04/04/2016 4:08 PM PST Evelyn Medina MD LAB BLOOD ORDERABLES Final R esult [facility] [employer] [address] [place] [address] * (ABNORMAL) Creatinine (04/04/2016 12:30 PM PST) Creatinine 1.30(H) 0.44 - 1.03 mg/dL 04/04/2016 4:21 PM [facility] GFR Non-Black (CKD-EPI) 49(L) >=60 mL/min/1. 73m2 04/04/2016 4:21 PM [facility] GFR Black (CKD-EPI) 56(L) >=60 mL/min/1. 73m2 04/04/2016 4:21 PM [facility] Blood 04/04/2016 12:3 0 PM PST 04/04/2016 4:08 PM PST Evelyn Medina MD LAB BLOOD ORDERABLES Final R esult Performing Organization Address City/[facility]/ZIP Co de Phone Number [address] [address] * (ABNORMAL) ALT (04/04/2016 12:30 PM PST) ALT 5(L) 15 - 54 U/L 04/04/2016 4:21 PM [facility] Blood 04/04/2016 12:3 0 PM PST 04/04/2016 4:08 PM PST Result [facility] Evelyn Medina MD LAB BLOOD ORDERABLES Final R esult [address] [address] * (ABNORMAL) Sedimentation Rate, Westergren (04/04/2016 12:30 PM PST) Sedimentation Rate, Westergren 120(H) 0 - 20 mm/hour 04/04/2016 4:57 PM [facility] Blood 04/04/2016 12:3 0 PM PST 04/04/2016 4:08 PM PST us Evelyn Medina MD LAB BLOOD ORDERABLES Final R esult [facility] [employer] [address] [place], [place] [phone] documented in this encounter Visit Diagnoses Diagnosis Infection and inflammatory reaction due to other internal joint prosthesis, subsequent encounter documented in this encounter
--- OUTSIDE RECORDS SUMMARY | 2025-03-05 20:57 | EXTERNAL MEDICAL SUMMARY RPT | Encounter Summary ---
Author Organization [facility] Address [facility] [address] Care Team Providers Care Timber Poisoner Name Role Phone Unavailable Primary Care Provider Unavailabl e Encounter Details Date Type Department Care Team (Late st Contact Info) Description 03/12/2016 Lab Requisition [place], [place] [address] [place], [place] [phone] Evelyn Mdeina MD [address] [place] [address] PH Lab Use Only Social History Tobacco Use Types Packs/Day Years [...] Procedure Name Priority Date/Time Associated Diagnosis Comments MISCELLANEOUS TEST Routine 03/12/2016 8: 45 AM PST PH Lab Use Only WOUND, AEROBIC AND ANAEROBIC CULTURE & GRAM STAIN Routine 03/12/2016 8:45 AM PST PH Lab Use Only documented in this encounter Results * Miscellaneous Test (03/12/2016 8:45 AM PST) Test Performed: See Scanned Report. 03/22/2016 8:22 AM PST [facility] Other FRESH TISSUE SPECIMEN / Unknown 03/12/2016 8:45 AM PST 03/13/2016 6:49 AM PST us Evelyn Medina MD LAB BLOOD ORDERABLES Final R [place] [address] * Wound Aerobic and Anaerobic Culture with Gram Stain (03/12/2016 8:45 AM PST) Culture Rare Sharri dubliniensis OSITO (UG/ML) E-TEST 03/18/2016 10:22 AM [facility] Comment:Isolate referred to an outside lab for susceptibilities - see separate report Gram Stain Result Few WBCs 016 10:22 AM [facility] Gram Stain Result No organisms seen 03/18/2016 10:22 AM [facility] Other FRESH TISSUE SPECIMEN / Unknown 03/12/2016 8:45 AM PST 03/13/2016 6:49 AM PST Narrative [facility] - 03/18/2016 10:22 AM PST Further work-up of culture being performed per provider request. Evelyn Medina MD MICROBIOLOGY - GENERAL ORDER MIRIAM Final Result [facility] [address] [place] [address] documented in this encounter Visit Diagnoses Diagnosis PH Lab Use Only Lab Use Only documented in this encounter
--- OUTSIDE RECORDS SUMMARY | 2025-03-05 20:57 | EXTERNAL MEDICAL SUMMARY RPT | Encounter Summary ---
Author Organization [facility] Address [facility] [address] Care Team Providers Care Polymerization Supervisor Name Role Phone Unavailable Primary Care Provider Unavailabl e Encounter Details Date Type Department Care Team (Late st Contact Info) Description 07/16/2016 Lab Requisition [facility] [place] [address] [place], [place] [phone] Evelyn Medina MD [address] [place] [address] Social History Tobacco Use Types Packs/Day Years Used Date Smoking Tobacco: Never Assessed Comments Unknown Sex and Gender Information Value Date Recorded Sex Assigned at Not on file Legal Sex Female 1:39 PM PDT Gender Identity Not on file Sexual Orientation Not on file documented as of this encounter Plan of Treatment Not on file documented as of this encounter Visit Diagnoses Not on filedocumented in this encounter
--- OUTSIDE RECORDS SUMMARY | 2025-03-05 20:57 | EXTERNAL MEDICAL SUMMARY RPT | Encounter Summary ---
Author Organization [facility] Address [facility] [address] Care Team Providers Care Tobacco Wetter Name Role Phone Unavailable Primary Care Provider Unavailabl e Encounter Details Date Type Department Care Team (Latest Contact Info) Description 04/08/2016 [facility] [place] [address] [place], [place] [phone] Evelyn eMdina MD [address] [place] [address] Infection and inflammatory reaction due [...] Procedure Name Priority Date/Time Associated Diagnosis Comments LAVENDER HOLD Routine 04/08/2016 12:50 PM PST Infection and inflammatory reaction due to other internal joint prosthesis, subsequent encounter CREATININE STAT 04/08/2016 12:50 PM PST Infection and inflammatory reaction due to other internal joint prosthesis, subsequent encounter VANCOMYCIN,TROUGH STAT 04/08/2016 12: 50 PM PST Infection and inflammatory reaction due to other internal joint prosthesis, subsequent encounter documented in this encounter Results * Lavender Hold (04/08/2016 12:50 PM PST) RAINBOW DRAW Hold for add-ons. 04/09/2016 2:56 AM PST [employer] Comment:Auto resulted. Blood 04/08/2016 12:5 0 PM PST 04/08/2016 6:17 PM PST Result Cody Medina MD LAB BLOOD ORDERABLES Final R esult Performing Organization Address City/[facility]/ZIP Co de Phone Number [facility] [employer] [address] [place] [phone] * Vancomycin, Trough (04/08/2016 12:50 PM PST) Vancomycin, Trough 16.8 10.0 - 20.0 ug/mL 04/08/2016 6:32 PM PST [facility] [employer] Blood 04/08/2016 12:5 0 PM PST 04/08/2016 6:17 PM PST Result Cody Medina MD LAB BLOOD ORDERABLES Final R esult Performing Organization Address [facility] de Phone Number [facility] [employer] [address] [place] [phone] * (ABNORMAL) Creatinine (04/08/2016 12:50 PM PST) Creatinine 1.40(H) 0.44 - 1.03 mg/dL 04/08/2016 6:32 PM [facility] [employer] GFR Non-Black (CKD-EPI) 45(L) >=60 mL/min/1. 73m2 04/08/2016 6:32 PM [facility] GFR Black (CKD-EPI) 52(L) >=60 mL/min/1. 73m2 04/08/2016 6:32 PM [facility] Blood 04/08/2016 12:5 0 PM PST 04/08/2016 6:17 PM PST Result Cody Medina MD LAB BLOOD ORDERABLES Final R esult Performing Organization Address [facility] Co de Phone Number [facility] [employer] [address] [place] [phone] documented in this encounter Visit Diagnoses Diagnosis Infection and inflammatory reaction due to other internal joint prosthesis, subsequent encounter documented in this encounter
--- OUTSIDE RECORDS SUMMARY | 2025-03-05 20:57 | EXTERNAL MEDICAL SUMMARY RPT | Encounter Summary ---
Author Organization [facility] Address [facility] [address] Care Team Providers Care Applied Psychology Professor Name Role Phone Unavailable Primary Care Provider Unavailabl e Encounter Details Date Type Department Care Team (Latest Contact Info) Description 06/11/2016 Lab Requisition [place], [place] [address] [place], [place] [phone] Evelyn Medina MD [address] [place] [address] Infection and inflammatory reaction due [...] Comments *CBC WITH DIFFERENTIAL, LAB GENERATED ORDER Routine 06/11/2016 11:55 AM PDT Infection and inflammatory reaction due to other internal joint prosthesis, subsequent encounter SEDIMENTATION RATE, WESTERGREN Routine 06/11/2016 11:55 AM PDT Infection and inflammatory reaction due to other internal joint prosthesis, subsequent encounter ALT Routine 06/11/2016 11:55 AM PDT Infection and inflammatory reaction due to other internal joint prosthesis, subsequent encounter CBC WITH DIFFERENTIAL Routine 06/11/2016 11:55 AM PDT Infection and inflammatory reaction due to other internal joint prosthesis, subsequent encounter CREATININE Routine 06/11/2016 11:55 AM PDT Infection and inflammatory reaction due to other internal joint prosthesis, subsequent encounter documented in this encounter Results * (ABNORMAL) Complete Blood Count with Automated Differential (06/11/2016 11:55 AM PDT) WBC 8.9 4.0 - 11.0 K/uL 06/11/2016 8:21 PM PDT [facility] RBC 4.26 3.75 - 5.07 M/uL 06/11/2016 8:21 PM PDT [facility] HGB 10.9(L) 11.5 - 15.0 g/dL 06/11/2016 8:21 PM PDT [facility] HCT 35.6 34.8 - 45.0 % 06/11/2016 8:21 PM PDT [facility] MCV 83.6 80.0 - 100.0 fL 06/11/2016 8:21 PM PDT [facility] MCH 25.6(L) 25.9 - 34.2 pg 06/11/2016 8:21 PM PDT [facility] MCHC 30.6(L) 31.5 - 36.5 g/dL 06/11/2016 8:21 PM PDT [facility] RDW 16.8(H) 11.5 - 14.2 % 06/11/2016 8:21 PM PDT [facility] Platelets 292 150 - 400 K/uL 06/11/2016 8:21 PM PDT [facility] MPV 9.3 8.5 - 12.4 fL 06/11/2016 8:21 PM PDT [facility] Neutrophils % 52.3 % 06/11/2016 8:21 PM PDT [facility] Immat Gran % 0.3 % 06/11/2016 8:21 PM PDT [facility] Lymphocytes % 35.4 % 06/11/2016 8:21 PM PDT [facility] Monocytes % 7.8 % 06/11/2016 8:21 PM PDT [facility] Eosinophils % 3.4 % 06/11/2016 8:21 PM PDT [facility] Basophils % 0.8 % 06/11/2016 8:21 PM PDT [facility] Neutrophils # 4.7 1.5 - 8.0 K/uL 06/11/2016 8:21 PM PDT [facility] Immat Gran # 0.0 0.0 - 0.1 K/uL 06/11/2016 8:21 PM PDT [facility] Lymphocytes # 3.2 1.0 - 3.5 K/uL 06/11/2016 8:21 PM PDT [facility] Monocytes # 0.7 0.2 - 1.0 K/uL 06/11/2016 8:21 PM PDT [facility] Eosinophils # 0.3 0.0 - 0.5 K/uL 06/11/2016 8:21 PM PDT [facility] Basophils # 0.1 0.0 - 0.2 K/uL 06/11/2016 8:21 PM PDT [facility] nRBC <=0 % 06/11/2016 8:21 PM PDT [facility] Blood 06/11/2016 11:5 5 AM PDT 06/11/2016 8:05 PM PDT us Evelyn Medina MD LAB BLOOD ORDERABLES Final R esult Performing Organization Address [facility] Co de Phone Number [address] [address] * (ABNORMAL) Creatinine (06/11/2016 11:55 AM PDT) Creatinine 1.40(H) 0.44 - 1.03 mg/dL 06/11/2016 8:55 PM PDT [facility] GFR Non-Black (CKD-EPI) 44(L) >=60 mL/min/1. 73m2 06/11/2016 8:55 PM PDT [facility] GFR Black (CKD-EPI) 51(L) >=60 mL/min/1. 73m2 06/11/2016 8:55 PM PDT [facility] Blood 06/11/2016 11:5 5 AM PDT 06/11/2016 8:05 PM PDT Evelyn Medina MD LAB BLOOD ORDERABLES Final R esult Performing Organization Address [facility]/ZIP Co de Phone Number [facility] [employer] [address] [place] [phone] * ALT (06/11/2016 11:55 AM PDT) ALT 19 15 - 54 U/L 06/11/2016 8:55 PM PDT [facility] [employer] [facility] Blood 06/11/2016 11:5 5 AM PDT 06/11/2016 8:05 PM PDT us Evelyn Medina MD LAB BLOOD ORDERABLES Final R esult Performing Organization Address City/[facility]/ZIP Co de Phone Number [facility] [employer] [address] [place] [phone] * (ABNORMAL) Sedimentation Rate, Westergren (06/11/2016 11:55 AM PDT) Sedimentation Rate, Westergren 96(H) 0 - 20 mm/hour 06/11/2016 9:13 PM PDT [facility] Blood 06/11/2016 11:5 5 AM PDT 06/11/2016 8:05 PM PDT us Evelyn Medina MD LAB BLOOD ORDERABLES Final R esult Performing Organization Address City/[facility] Co de Phone Number [facility] [employer] [address] [place] [phone] documented in this encounter Visit Diagnoses Diagnosis Infection and inflammatory reaction due to other internal joint prosthesis, subsequent encounter documented in this encounter
--- OUTSIDE RECORDS SUMMARY | 2025-03-05 20:57 | EXTERNAL MEDICAL SUMMARY RPT | Encounter Summary ---
Author Organization [facility] Address [facility] [address] Care Team Providers Care Paste Up Artist Apprentice Name Role Phone Unavailable Primary Care Provider Unavailabl e Encounter Details Date Type Department Care Team (Late st Contact Info) Description 03/12/2016 Lab Requisition [facility] [employer] - [place], [place] [address], [place] [phone] Evelyn Medina MD [address] [place] [address] PH Lab Use Only Social [...] Procedure Name Priority Date/Time Associated Diagnosis Comments WOUND, AEROBIC AND ANAEROBIC CULTURE & GRAM STAIN Routine 03/12/2016 4:25 PM PST PH Lab Use Only documented in this encounter Results * Wound Aerobic and Anaerobic Culture with Gram Stain (03/12/2016 4:25 PM PST) Culture No growth at 5 days OSITO (UG/ML) E-TEST 03/18/2016 10:23 AM PST [facility] Gram Stain Result Few WBCs 03/18/2016 10:23 AM PST [facility] Gram Stain Result No organisms seen 03/18/2016 10:23 AM [facility] Other OTHER / Unknown 03/12/2016 4 :25 PM PST 03/13/2016 6:44 AM PST us Evelyn Medina MD MICROBIOLOGY - GENERAL ORDER MIRIAM Final Result [facility] [address] [place] [address] documented in this encounter Visit Diagnoses Diagnosis PH Lab Use Only Lab Use Only documented in this encounter
--- OUTSIDE RECORDS SUMMARY | 2025-03-05 20:57 | EXTERNAL MEDICAL SUMMARY RPT | Encounter Summary ---
Author Organization [facility] Address [facility] [address] Care Team Providers Care Glazier Artist Name Role Phone Unavailable Primary Care Provider Unavailabl e Encounter Details Date Type Department Care Team (Late st Contact Info) Description 07/16/2016 Lab Requisition [facility] [employer] [place], [place] [address] [place], [place] [phone] Evelyn Medina MD [address] [place] [address] PH Lab Use Only Social [...] AND ANAEROBIC CULTURE & GRAM STAIN Routine 07/16/2016 7:15 PM PDT PH Lab Use Only documented in this encounter Results * Wound Aerobic and Anaerobic Culture with Gram Stain (07/16/2016 7:15 PM PDT) Culture No growth at 5 days OSITO (UG/ML) E-TEST 07/21/2016 1:32 PM PDT [facility] Gram Stain Result Few WBCs 07/21/2016 1:32 PM PDT [facility] Gram Stain Result No organisms seen 07/21/2016 1:32 PM PDT [facility] Other WOUND / Unknown 07/16/2016 7 :15 PM PDT 07/16/2016 10:13 PM PDT us Evelyn Medina MD MICROBIOLOGY - GENERAL ORDER MIRIAM Final Result [employer] [address] [place] [address] documented in this encounter Visit Diagnoses Diagnosis PH Lab Use Only Lab Use Only documented in this encounter
--- OUTSIDE RECORDS SUMMARY | 2025-03-05 20:57 | EXTERNAL MEDICAL SUMMARY RPT | Encounter Summary ---
Author Organization [facility] Address [facility] [address] Care Team Providers Care Bankruptcy Processor Name Role Phone Unavailable Primary Care Provider Unavailabl e Encounter Details Date Type Department Care Team (Late st Contact Info) Description 03/13/2016 Lab Requisition [facility] [employer] [place], [place] [address] [place], [place] [phone] Evelyn Medina MD [address] [place] [address] PH Lab Use Only Social [...] Procedure Name Priority Date/Time Associated Diagnosis Comments ACID-FAST BACILLUS (AFB) CULTURE AND AFB STAIN Routine 03/12/2016 6:53 AM PST PH Lab Use Only FUNGAL CULTURE NOT SKIN, HAIR OR NAILS Routine 03/12/2016 6:53 AM PST PH Lab Use Only documented in this encounter Results * Fungal Culture not Skin, Hair or Nails (03/12/2016 6:53 AM PST) Other OTHER / Unknown 03/12/2016 6 :53 AM PST 03/13/2016 8:11 AM PST Narrative [facility] - 04/15/2016 1:11 PM PST Sent to reference laboratory See separate report. us Evelyn Medina MD MICROBIOLOGY - GENERAL ORDER MIRIAM Edited Result - Final Performing Organization Address [facility]/ZIP Co de Phone Number [employer] [address] [place] [address] * Acid-Fast Bacilli (AFB) Culture & AFB Stain (03/12/2016 6:53 AM PST) Culture No acid fast bacilli isolated at 6 weeks OSITO (UG/ML) E-TEST 04/29/2016 3:56 PM PST [facility] Acid Fast stain No acid fast bacilli seen 04/29/2016 3:[address] [facility] Other OTHER / Unknown 03/12/2016 6 :53 AM PST 03/13/2016 8:11 AM PST Evelyn Medina MD MICROBIOLOGY - GENERAL ORDER MIRIAM Final Result Performing Organization Address City/[facility]/ZIP Co de Phone Number [facility] [address] [place] [address] documented in this encounter Visit Diagnoses Diagnosis PH Lab Use Only Lab Use Only documented in this encounter
--- OUTSIDE RECORDS SUMMARY | 2025-03-05 20:57 | EXTERNAL MEDICAL SUMMARY RPT | Encounter Summary ---
Author Organization [facility] Address [facility] [address] Care Team Providers Care Warehouse And Receiving Supervisor Name Role Phone Unavailable Primary Care Provider Unavailabl e Encounter Details Date Type Department Care Team (Latest Contact Info) Description 09/26/2016 [facility] [place] [address] [place], [place] [phone] Evelyn Medina MD [address] [place] [address] Infection and inflammatory reaction due [...] Procedure Name Priority Date/Time Associated Diagnosis Comments SEDIMENTATION RATE, WESTERGREN STAT 09/26/2016 4:30 PM PDT Infection and inflammatory reaction due to other internal joint prosthesis, subsequent encounter C-REACTIVE PROTEIN STAT 09/26/2016 4: 30 PM PDT Infection and inflammatory reaction due to other internal joint prosthesis, subsequent encounter documented in this encounter Results * (ABNORMAL) Sedimentation Rate, Ibrahimaren (09/26/2016 4:30 PM PDT) Sedimentation Rate, Jamesergren 106(H) 0 - 20 mm/hour 09/26/2016 6:47 PM PDT [employer] Blood 09/26/2016 4:30 PM PDT 09/26/2016 6:05 PM PDT Evelyn Medina MD LAB BLOOD ORDERABLES Final R esult Performing Organization Address [facility] de Phone Number [employer] [address] [place] [phone] * (ABNORMAL) C-Reactive Protein (09/26/2016 4:30 PM PDT) C-Reactive Protein 7.1(H) <1.0 mg/dL 09/26/2016 6:21 PM PDT [facility] Blood 09/26/2016 4:30 PM PDT 09/26/2016 6:05 PM PDT Narrative [facility] - 09/26/2016 6:21 PM PDT Note: CRP is used to indicate the presence of an inflammatory process; hsCRP (high sensitivity CRP) is used for CVD risk assessment. Evelyn Medina MD LAB BLOOD ORDERABLES Final R esult Performing Organization Address [facility] Co de Phone Number [employer] [address] [place] [phone] documented in this encounter Visit Diagnoses Diagnosis Infection and inflammatory reaction due to other internal joint prosthesis, subsequent encounter documented in this encounter
--- OUTSIDE RECORDS SUMMARY | 2025-03-05 20:57 | EXTERNAL MEDICAL SUMMARY RPT | Encounter Summary ---
Author Organization [facility] Address [facility] [address] Care Team Providers Care Petroleum Plant Operator Name Role Phone Unavailable Primary Care Provider Unavailabl e Encounter Details Date Type Department Care Team (Late st Contact Info) Description 03/13/2016 Lab Requisition [facility] [employer] [place], [place] [address], [place] [phone] Evelyn Medina MD [address] [place] [address] PH Lab Use Only Social [...] or Nails (03/12/2016 6:53 AM PST) Other FRESH TISSUE SPECIMEN / Unknown 03/12/2016 6:53 AM PST 03/13/2016 10:32 AM PST Narrative [facility] [employer] - 04/16/2016 11:35 AM PST Testing done by [facility] - see attached report. us Evelyn Medina MD MICROBIOLOGY - GENERAL ORDER MIRIAM Edited Result - Final Performing Organization Address City/[facility]/ZIP Co de Phone Number [facility] [address] [place] [address] * Acid-Fast Bacilli (AFB) Culture & AFB Stain (03/12/2016 6:53 AM PST) Culture No acid fast bacilli isolated at 6 weeks OSITO (UG/ML) E-TEST 04/29/2016 3:55 PM PST [facility] Culture Yeast isolated OSITO (UG/ML) E-TEST 04/29/2016 3:55 PM PST [facility] Comment:Please contact [facility] client services within 5 days at [phone] ext. [phone] or if an identification of the organism(s) is needed. Culture Mold Isolated OSITO (UG/ML) E-TEST 04/29/2016 3:55 PM [facility] Comment:Please contact [facility] client services within 5 days at [phone] ext. [phone] or if an identification of the organism(s) is needed. Acid Fast stain No acid fast bacilli seen 04/29/2016 3:55 PM [facility] Other FRESH TISSUE SPECIMEN / Unknown 03/12/2016 6:53 AM PST 03/13/2016 8:19 AM PST Narrative [facility] - 04/29/2016 3:55 PM PST On reprocessed specimen. Evelyn Medina MD MICROBIOLOGY - GENERAL ORDER MIRIAM Final Result [facility] [address] [place] [address] documented in this encounter Visit Diagnoses Diagnosis PH Lab Use Only Lab Use Only documented in this encounter
--- OUTSIDE RECORDS SUMMARY | 2025-03-05 20:57 | EXTERNAL MEDICAL SUMMARY RPT | Encounter Summary ---
Author Organization [facility] Address [facility] [address] Care Team Providers Care Exerciser Horse Name Role Phone Unavailable Primary Care Provider Unavailabl e Encounter Details Date Type Department Care Team (Latest Contact Info) Description 05/15/2016 Lab Requisition [place], [place] [address] [place], [place] [phone] Evelyn Medina MD [address] [place] [address] Infection and inflammatory reaction due [...] *CBC WITH DIFFERENTIAL, LAB GENERATED ORDER Routine 05/15/2016 11:20 AM PST Infection and inflammatory reaction due to other internal joint prosthesis, subsequent encounter SEDIMENTATION RATE, WESTERGREN Routine 05/15/2016 11:20 AM PST Infection and inflammatory reaction due to other internal joint prosthesis, subsequent encounter ALT Routine 05/15/2016 11:20 AM PST Infection and inflammatory reaction due to other internal joint prosthesis, subsequent encounter CBC WITH DIFFERENTIAL Routine 05/15/2016 11:20 AM PST Infection and inflammatory reaction due to other internal joint prosthesis, subsequent encounter CREATININE Routine 05/15/2016 11:20 AM PST Infection and inflammatory reaction due to other internal joint prosthesis, subsequent encounter documented in this encounter Results * (ABNORMAL) Complete Blood Count with Automated Differential (05/15/2016 11:20 AM PST) WBC 8.2 4.0 - 11.0 K/uL 05/15/2016 9:12 PM [facility] RBC 3.37(L) 3.75 - 5.07 M/uL 05/15/2016 9:12 PM [facility] HGB 8.9(L) 11.5 - 15.0 g/dL 05/15/2016 9:12 PM [facility] HCT 28.9(L) 34.8 - 45.0 % 05/15/2016 9:12 PM [facility] MCV 85.8 80.0 - 100.0 fL 05/15/2016 9:12 PM [facility] MCH 26.4 25.9 - 34.2 pg 05/15/2016 9:12 PM [facility] MCHC 30.8(L) 31.5 - 36.5 g/dL 05/15/2016 9:12 PM [facility] RDW 15.5(H) 11.5 - 14.2 % 05/15/2016 9:12 PM [facility] Platelets 292 150 - 400 K/uL 05/15/2016 9:12 PM [facility] MPV 10.0 8.5 - 12.4 fL 05/15/2016 9:12 PM [facility] Neutrophils % 63.7 % 05/15/2016 9:12 PM [facility] Immat Gran % 0.6 % 05/15/2016 9:12 PM [facility] Lymphocytes % 19.8 % 05/15/2016 9:12 PM [facility] Monocytes % 9.0 % 05/15/2016 9:12 PM [facility] Eosinophils % 6.4 % 05/15/2016 9:12 PM [facility] Basophils % 0.5 % 05/15/2016 9:12 PM [facility] Neutrophils # 5.2 1.5 - 8.0 K/uL 05/15/2016 9:12 PM [facility] Immat Gran # 0.0 0.0 - 0.1 K/uL 05/15/2016 9:12 PM [facility] Lymphocytes # 1.6 1.0 - 3.5 K/uL 05/15/2016 9:12 PM [facility] Monocytes # 0.7 0.2 - 1.0 K/uL 05/15/2016 9:12 PM [facility] Eosinophils # 0.5 0.0 - 0.5 K/uL 05/15/2016 9:12 PM [facility] Basophils # 0.0 0.0 - 0.2 K/uL 05/15/2016 9:12 PM [facility] nRBC <=0 % 05/15/2016 9:12 PM [facility] Blood 05/15/2016 11:2 0 AM PST 05/15/2016 7:41 PM [facility] Result [facility] Evelyn Medina MD LAB BLOOD ORDERABLES Final R esult Performing Organization Address City/[facility] Co de Phone Number [address] [address] * (ABNORMAL) Creatinine (05/15/2016 11:20 AM [facility]) Creatinine 1.30(H) 0.44 - 1.03 mg/dL 05/15/2016 9:52 PM [facility] GFR Non-Black (CKD-EPI) 49(L) >=60 mL/min/1. 73m2 05/15/2016 9:52 PM [facility] GFR Black (CKD-EPI) 56(L) >=60 mL/min/1. 73m2 05/15/2016 9:52 PM [facility] Blood 05/15/2016 11:2 0 AM PST 05/15/2016 7:41 PM [facility] Evelyn Medina MD LAB BLOOD ORDERABLES Final R esult Performing Organization Address City/[facility]/ZIP Co de Phone Number [address] [address] * (ABNORMAL) ALT (05/15/2016 11:20 AM PST) ALT 11(L) 15 - 54 U/L 05/15/2016 9:52 PM [facility] Blood 05/15/2016 11:2 0 AM PST 05/15/2016 7:41 PM PST Evelyn Medina MD LAB BLOOD ORDERABLES Final R esult Performing Organization Address [facility] [place]/[facility] Co de Phone Number [facility] [address] [place] [phone] * (ABNORMAL) Sedimentation Rate, Westergren (05/15/2016 11:20 AM PST) Pathologist [facility] Sedimentation Rate, Westergren 109(H) 0 - 20 mm/hour 05/15/2016 10:22 PM [facility] Blood 05/15/2016 11:2 0 AM PST 05/15/2016 7:41 PM PST Evelyn Medina MD LAB BLOOD ORDERABLES Final R esult Performing Organization Address [facility] [place]/[facility] Co de Phone Number [facility]PITALReferlyAC[facility] [employer] [address] [place] [phone] documented in this encounter Visit Diagnoses Diagnosis Infection and inflammatory reaction due to other internal joint prosthesis, subsequent encounter documented in this encounter
--- OUTSIDE RECORDS SUMMARY | 2025-03-05 20:57 | EXTERNAL MEDICAL SUMMARY RPT | Encounter Summary ---
Author Organization [facility] Address [facility] [address] Care Team Providers Care Flitch Hanger Name Role Phone Unavailable Primary Care Provider Unavailabl e Encounter Details Date Type Department Care Team (Late st Contact Info) Description 09/26/2015 Lab Requisition [facility] [place], [place] [address] [place] [address] Evelyn Medina MD [address] [place] [address] Social History Tobacco Use Types [...] Procedure Name Priority Date/Time Associated Diagnosis Comments ANAEROBIC BACTERIAL CULTURE (STJO) Routine 09/26/2015 1:55 PM PDT documented in this encounter Results * Anaerobic Bacterial Culture (09/26/2015 1:55 PM PDT) Culture No anaerobes isolated OSITO INTERPRETATION 10/01/2015 10:13 AM PDT [facility] Other WOUND / Unknown 09/26/2015 1 :55 PM PDT 09/26/2015 10:26 PM PDT us Evelyn Medina MD MICROBIOLOGY - GENERAL ORDER MIRIAM Final Result [facility] [address] [place], [place] [phone] documented in this encounter Visit Diagnoses Not on filedocumented in this encounter
--- OUTSIDE RECORDS SUMMARY | 2025-03-05 20:58 | EXTERNAL MEDICAL SUMMARY RPT | Encounter Summary ---
Author Organization [facility] Address [facility] [address] Care Team Providers Care Patternmaker Hand Name Role Phone Unavailable Primary Care Provider Unavailabl e Encounter Details Date Type Department Care Team (Late st Contact Info) Description 12/05/2015 Lab Requisition [facility] [employer] [place], [place] [address] [place] [address] Evelyn Medina MD [address] [place] [address] Social History Tobacco Use Types [...] Associated Diagnosis Comments ANAEROBIC BACTERIAL CULTURE (STJO) STAT 12/05/2015 10:46 AM PDT documented in this encounter Results * Anaerobic Bacterial Culture (12/05/2015 10:46 AM PDT) Culture No anaerobes isolated OSITO INTERPRETATION 12/10/2015 7:49 AM PDT [facility] [employer] Other WOUND / Unknown 12/05/2015 1 0:46 AM PDT 12/05/2015 10:24 PM PDT us Evelyn Medina MD MICROBIOLOGY - GENERAL ORDER MIRIAM Final Result [facility] [employer] [address] [place], [place] [phone] documented in this encounter Visit Diagnoses Not on filedocumented in this encounter
--- OUTSIDE RECORDS SUMMARY | 2025-03-05 20:58 | EXTERNAL MEDICAL SUMMARY RPT | Encounter Summary ---
Author Organization [facility] Address [facility] [address] Care Team Providers Care Intelligence Chief Name Role Phone Unavailable Primary Care Provider Unavailabl e Encounter Details Date Type Department Care Team (Late st Contact Info) Description 12/05/2015 Lab Requisition [facility] [employer] [place], [place] [address] [place] [address] Evelyn Medina MD [address] [place] [address] Social History Tobacco Use Types [...] isolated OSITO INTERPRETATION 12/10/2015 7:49 AM PDT [facility] [employer] Other WOUND / Unknown 12/05/2015 1 0:46 AM PDT 12/05/2015 10:24 PM PDT us Evelyn Medina MD MICROBIOLOGY - GENERAL ORDER MIRIAM Final Result [facility] [employer] [address] [place], [place] [phone] documented in this encounter Visit Diagnoses Not on filedocumented in this encounter
--- OUTSIDE RECORDS SUMMARY | 2025-03-05 20:58 | EXTERNAL MEDICAL SUMMARY RPT | Encounter Summary ---
Author Organization [facility] Address [facility] [address] Care Team Providers Care Ice Cream Man Name Role Phone Unavailable Primary Care Provider Unavailabl e Encounter Details Date Type Department Care Team (Late st Contact Info) Description 03/12/2016 Lab Requisition [facility] [place], [place] [address] [place] [phone] Evelyn Medina MD [address] [place] [address] Social History Tobacco Use Types [...]
--- OUTSIDE RECORDS SUMMARY | 2025-03-05 20:58 | EXTERNAL MEDICAL SUMMARY RPT | Encounter Summary ---
Author Organization [facility] Address [facility] [address] Care Team Providers Care Osteopathic Physician Name Role Phone Unavailable Primary Care Provider Unavailabl e Encounter Details Date Type Department Care Team (Late st Contact Info) Description 03/12/2016 Lab Requisition [facility] [place], [place] [address] [place], [place] [phone] Evelyn Medina MD [address] [place] [address] Social History Tobacco Use Types [...]
--- OUTSIDE RECORDS SUMMARY | 2025-03-05 20:58 | EXTERNAL MEDICAL SUMMARY RPT | Encounter Summary ---
Author Organization [facility] Address [facility] [address] Care Team Providers Care Conference Service Coordinator Name Role Phone Unavailable Primary Care Provider Unavailabl e Encounter Details Date Type Department Care Team (Late st Contact Info) Description 03/12/2016 Lab Requisition [facility] [place], [place] [address] [place], [place] [phone] Evelyn Medina MD [address] [place] [address] Social History Tobacco Use Types [...]
--- OUTSIDE RECORDS SUMMARY | 2025-03-05 20:58 | EXTERNAL MEDICAL SUMMARY RPT | Encounter Summary ---
Author Organization [facility] Address [facility] [address] Care Team Providers Care Jig And Fixture Maker Name Role Phone Unavailable Primary Care Provider Unavailabl e Encounter Details Date Type Department Care Team (Late st Contact Info) Description 03/12/[address] [facility] [place] [address] [place], [place] [phone] Evelyn Medina MD [address] [place] [address] Social History Tobacco Use Types [...]
--- OUTSIDE RECORDS SUMMARY | 2025-03-05 20:58 | EXTERNAL MEDICAL SUMMARY RPT | Clinical Summary ---
Author Organization [facility] Address [address] [place] [address] Care Team Providers Care Iphone Developer Name Role Phone Unavailable Primary Care Provider Unavailabl e Social History Tobacco Use Types Packs/Day Years Used Date Smoking Tobacco: Never Assessed Comments Unknown Sex and Gender Information Value Date Recorded Sex Assigned at Not on file Legal Sex Female 1:39 PM PDT Gender Identity Not on file Sexual Orientation Not on file Plan of Treatment Not on file
--- OUTSIDE RECORDS SUMMARY | 2025-03-05 20:58 | EXTERNAL MEDICAL SUMMARY RPT | Encounter Summary ---
Author Organization [facility] Address [address] [place] [address] Care Team Providers Care Neuropsychology Division Chief Name Role Phone Pcp, None Selected Primary Care Provider Unavail able Encounter Details Date Type Department Care Team (Late st Contact Info) Description 06/28/2020 Abstract [facility] [place] [address] [place] [phone] Oleg Diaz MD [address] [address] Social History Tobacco Use Types Packs/Day Years Used Date Smoking Tobacco: Every Day Cigarettes Smokeless Tobacco: Never Comments Unknown Sex and Gender Information Value Date Recorded Sex Assigned at Not on file Legal Sex Female 7:44 PM PDT Gender Identity Not on file Sexual Orientation Not on file documented as of this encounter Plan of Treatment Not on file documented as of this encounter Visit Diagnoses Not on filedocumented in this encounter Care Teams Neuropsychology Division Chief Relationship Specialty Start Date End Date Pcp, None Selected PCP - General 07/15/24 documented as of this encounter
--- OUTSIDE RECORDS SUMMARY | 2025-03-05 20:58 | EXTERNAL MEDICAL SUMMARY RPT | Clinical Summary ---
Author Organization [facility] Address [address] [place] [address] Care Team Providers Care Clinique Counter Manager Name Role Phone Pcp, None Selected Primary Care Provider Unavail able Allergies No known active allergies Medications albuterol HFA (VENTOLIN HFA) 90 mcg/actuation inhaler Inhale 2 puffs every 6 hours as needed Active traZODone (DESYREL) 150 mg tablet Take 300 mg by mouth nightly Active acetaminophen (TYLENOL) 325 mg tablet Take 650 mg by mouth every 30 minutes as needed Active albuterol 2.5 mg /3 mL (0.083 %) nebulizer solution Take 3 mL by nebulization as needed Active QUEtiapine (SEROquel) 400 mg tablet Take 1 tablet by mouth nightly Active divalproex (DEPAKOTE) [address] tablet Take 1 tablet by mouth 2 (two) times a day 0 Active hydrOXYzine (ATARAX) 25 mg tablet Take 1 tablet by mouth 3 (three) times a day as needed 0 Active cyclobenzaprine (FLEXERIL) 10 mg tablet Take 10 mg by mouth 3 (three) times a day as needed for muscle spasms Active Active Problems Problem Noted Date Diagnosed Date 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, subsequent encounter 06/29/2020 Bipolar affective disorder, current episode depr essed 10/06/2015 Social History Tobacco Use Types Packs/Day Years Used Date Smoking Tobacco: Every Day Cigarettes Smokeless Tobacco: Never Comments Unknown Sex and Gender Information Value Date Recorded Sex Assigned at Not on file Legal Sex Female 7:44 PM PDT Gender Identity Not on file Sexual Orientation Not on file Last Filed Vital Signs Vital Sign Reading Time Taken Comments Blood Pressure 120/83 12/28/2019 12:34 PM PDT Pulse 108 06/29/2020 4:12 PM PDT Temperature 36.4 C (97.5 F) 12/28/2019 12:34 PM PDT Respiratory Rate 18 12/28/2019 12:34 PM PDT Oxygen Saturation 98% 06/29/2020 4:12 PM PDT Inhaled Oxygen Concentration - - Weight 83.9 kg (185 lb) 12/28/2019 12:34 PM PDT Height 177.8 cm (5' 10") 06/29/2020 4:12 PM PDT Body Mass Index 26.54 12/28/2019 12:34 PM PDT Plan of Treatment Health Maintenance Due Date Last Done Comments MMR Vaccines (1 of 1 - Standard series) 1969 Depression Screening (PHQ-9) 1980 Hepatitis B Vaccines (1 of 3 - 19+ 3-dose series) 06/09/1987 Cervical Cancer Screening Combined Topic 1998 Cervical Cancer-Pap screening 1998 HPV/Cotest 1998 Colorectal Cancer Screening (Colonoscopy) 2013 Colorectal Cancer Screening (FOBT) 2013 Colorectal Cancer Screening (Fecal DNA) 2013 Colorectal Cancer Screening Combined 2013 HM Pneumococcal Adult 50+ (1 of 1 - PCV) 2018 Zoster Vaccines (1 of 2) 2018 DTaP,Tdap,and Td Vaccines (2 - Td or Tdap) 01/05/2023 01/05/2013 COVID-19 Vaccine (1 - 2024-2 6 season) 2024 Influenza Vaccine (#1) 2024 4, 01/05/2013 RSV Patients Over 60 years O R qualifying ( Patients) (1 - 1-dose 75+ series) 06/09/2043 HPV Vaccines Aged Out No longer eligi ble based on patient's age to complete this topic Hepatitis A Vaccines Aged Out No long er eligible based on patient's age to complete this topic IPV Vaccines Aged Out No longer eligi ble based on patient's age to complete this topic Insurance MEDICARE PART A AND B MEDICAID OF [place] Member Subscriber Plan / Payer (Ef fective 2014-Present) Name:Tere Lopez Member ID:[id number] Relation to Subscriber:Self Name:Tere Lopez Subscriber ID:[id number] Payer ID:Not on file Group ID:[id number] Type:Not on file Address: [address] [place] [address] Care Teams Clinique Counter Manager Relationship Specialty Start Date End Date Pcp, None Selected PCP - General 07/15/24
--- OUTSIDE RECORDS SUMMARY | 2025-03-05 20:58 | EXTERNAL MEDICAL SUMMARY RPT | Clinical Summary ---
Author Organization [facility] gt Address [address] [place] [address] Care Team Providers Care House Repairer Name Role Phone Boy Soto Dwayne CORONER Unavailable [phone] Radha Hines Primary Care Provider Social History Tobacco Use Types Packs/Day Years Used Date Smoking Tobacco: Never Assessed Comments Unknown Sex and Gender Information Value Date Recorded Sex Assigned at Not on file Legal Sex Female 2:50 PM PST Gender Identity Not on file Sexual Orientation Not on file Plan of Treatment Not on file Insurance [place] MEDICAID Member Subscriber Plan / Payer (Ef fective 2016-Present) Name:Tere Lopez Member ID:[id number] Relation to Subscriber:Self Name:Tere Lopez Subscriber ID:[id number] Payer ID:[id number] Group ID:[id number] Type:Medicaid Address: [address] [phone] MEDICARE [place] Member Subscriber Plan / Payer (Ef fective for All Dates) Name:Nathaniel Lopezica Micaela Member ID:[id number] Relation to Subscriber:Self Name:Nathaniel Lopezdylan Hinojosa Subscriber ID:[id number] Payer ID:[id number] Group ID:[id number] Type:Medicaid Address: [address] [phone] MED[place]ARE [place] Member Subscriber Plan / Payer (Ef fective 2016-Present) Name:Tere Lopez Member ID:[id number] Relation to Subscriber:Self Name:Tere Lopez Subscriber ID:[id number] Payer ID:[id number] Group ID:[id number] Type:Medicaid Address: [address] [phone] [place] MED[place]ID Member Subscriber Plan / Payer (Ef fective for All Dates) Name:Tere Lopez Member ID:[id number] Relation to Subscriber:Self Name:Tere Lopez Subscriber ID:[id number] Payer ID:[id number] Group ID:[id number] Type:Medicaid Address: [facility] [address] [place] [address] Care Teams House Repairer Relationship Specialty Start Date End Date Radha Hines ARNP PCP - General Nurse Practitioner 11/06/16 Boy Soto ARNP Managed Care Nurse Practitioner 05/30/15
--- OUTSIDE RECORDS SUMMARY | 2025-03-05 20:58 | EXTERNAL MEDICAL SUMMARY RPT | Encounter Summary ---
Author Organization [facility] Address [facility] [address] Care Team Providers Care Buttonhole Facer Name Role Phone Unavailable Primary Care Provider Unavailabl e Encounter Details Date Type Department Care Team (Late st Contact Info) Description 03/12/2016 Lab Requisition [facility] [place], [place] [address] [place] [place] [phone] Evelyn Medina MD [address] [place] [address] Social History Tobacco Use Types [...]
--- OUTSIDE RECORDS SUMMARY | 2025-03-05 20:58 | EXTERNAL MEDICAL SUMMARY RPT | Encounter Summary ---
Author Organization [facility] Address [facility] [address] Care Team Providers Care Urinalysis Technician Name Role Phone Unavailable Primary Care Provider Unavailabl e Encounter Details Date Type Department Care Team (Late st Contact Info) Description 03/12/2016 Lab Requisition [facility] [place], [place] [address] [place] [place] [id number] Evelyn Medina MD [address] [place] [address] Social History Tobacco Use Types [...]
--- OUTSIDE RECORDS SUMMARY | 2025-03-05 20:58 | EXTERNAL MEDICAL SUMMARY RPT | Encounter Summary ---
Author Organization [facility] Address [facility] [address] Care Team Providers Care Plate Glass Installer Helper Name Role Phone Unavailable Primary Care Provider Unavailabl e Encounter Details Date Type Department Care Team (Late st Contact Info) Description 03/12/2016 Lab Requisition [facility] [place], [place] [address] [place] [id number] Evelyn Medina MD [address] [place] [address] Social History Tobacco Use Types [...]
--- OUTSIDE RECORDS SUMMARY | 2025-03-05 20:58 | EXTERNAL MEDICAL SUMMARY RPT | Encounter Summary ---
Author Organization [facility] Address [address] [place] [address] Care Team Providers Care Dry Charge Process Attendant Name Role Phone Pcp, None Selected Primary Care Provider Unavail able Encounter Details Date Type Department Care Team (Latest Contact Info) Description 12/29/2019 Transcribe Orders [facility] [address] [place] [address] Kianna Ludwig, [facility] [address] [address] Dependence on wheelchair (Primary Dx); Primary osteoarthritis of left hip Social History Tobacco Use Types Packs/Day Years [...] documented as of this encounter Visit Diagnoses Diagnosis Dependence on wheelchair- Primary Primary osteoarthritis of left hip documented in this encounter Care Teams Dry Charge Process Attendant Relationship Specialty Start Date End Date Pcp, None Selected PCP - General 07/15/24 documented as of this encounter
--- OUTSIDE RECORDS SUMMARY | 2025-03-05 20:58 | EXTERNAL MEDICAL SUMMARY RPT | Encounter Summary ---
Author Organization [facility] Address [facility] [address] Care Team Providers Care Cook Helper Vegetable Name Role Phone Unavailable Primary Care Provider Unavailabl e Encounter Details Date Type Department Care Team (Late st Contact Info) Description 09/26/2015 Lab Requisition [facility] [place], [place] [address] [place] [address] Evelyn Medina MD [address] [place] [address] Social History Tobacco Use Types [...] Comments ANAEROBIC BACTERIAL CULTURE (STJO) Routine 09/26/2015 10:00 AM PDT documented in this encounter Results * Anaerobic Bacterial Culture (09/26/2015 10:00 AM PDT) Culture No anaerobes isolated OSITO INTERPRETATION 10/01/2015 10:12 AM PDT [facility] Other WOUND / Unknown 09/26/2015 1 0:00 AM PDT 09/26/2015 10:26 PM PDT us Evelyn Medina MD MICROBIOLOGY - GENERAL ORDER MIRIAM Final Result [facility] [address] [place], [place] [phone] documented in this encounter Visit Diagnoses Not on filedocumented in this encounter
== END 2025-03-04 16:49 | disposition home health service (06) | DRG 189 ==
LOC: MS2 11:28 → ED 11:28 → MS2 15:15
PROVIDERS: ADMIT Student in an Organized Health Care Education/Training Program; ATTEND Internal Medicine